=== PATIENT | female | born 1955 | race Caucasian/White ===

== ENCOUNTER 2019-05-03 19:36 | Emergency (ER) | payer MEDICARE, SELFPAY ==
[2019-05-03 19:41] VITALS: BP 151/96; PULSE 90; RESP 20; TEMP 37; O2SAT 100
--- NOTE | 2019-05-03 20:07 | ED.RECABL ---
HPI - Recheck/Abnormal Lab/Rx General Chief Complaint: Recheck/Abnormal Lab/Rx Stated Complaint: high bs Time Seen by Provider: 05/03/19 19:58 Source: patient Mode of arrival: ambulatory Limitations: no limitations History of Present Illness HPI narrative: A 63 y/o female pt presents to the ED, with c/o elevated BS since this morning. Pt states she checked her BS last night before bed and it was in the 200s and notes taking 11 units of her diabetic medication. She states that when she woke up her BS was 579 and she took 2 pills that she is supposed to take after meals without eating anything, and her BS came down to the 300s. Her BS is 384 in the ED. Pt states she's had a GONCALVES x 3 days, productive cough, and increased thirst, but denies fever, chills, CP, chest pressure, ABD pain, dysuria, increased urination, N/V/D, change in food intake, or any sick contacts. She denies having anything to eat today. Pt states that she had a similar episode to this x 3 months ago and her doctor switched her diabetic medication dosages. complaint: abnormal lab (BS of 500) Initial visit (ago): hour(s) Associated symptoms: other (GONCALVES x 3 days, productive cough, and increased thirst) Treatments prior to arrival: other (Diabetic medications) Related Data Allergies Allergy/AdvReac Type Severity Reaction Status Date / Time CODIENE AdvReac Mild ITCHING Uncoded 08/16/10 16:06 Review of Systems Review of Systems: All systems reviewed & are unremarkable except as noted in HPI and below Constitutional: Constitutional: Denies chills, Denies fever(s) and Reports headache(s) (x 3 days) Cardiovascular: Cardiovascular: Denies chest pain and Denies other (chest pressure) Respiratory: Respiratory: Reports cough (productive) Gastrointestinal: Gastrointestinal: Denies abdominal pain, Denies diarrhea, Denies nausea, Denies vomiting and Denies other (change in food intake) Genitourinary: Genitourinary: Denies dysuria Endocrine: Endocrine: Reports polydipsia and Denies polyuria [facility] Past Medical History Medical History (Updated 05/03/19 @ 23:36 by Dagoberto Sim MD) Anxiety Arthritis Back pain Bipolar disorder COPD (chronic obstructive pulmonary disease) Depression Diabetes mellitus History of emphysema Pneumonia Surgical History Surgical History (Updated 05/03/19 @ 21:50 by Janice Serrano, [facility]) History of bilateral knee replacement History of section History of hysterectomy History of tonsillectomy Social History Social History Gender identity (if verbalized by the patient): Female Exam Narrative: Exam Narrative: GENERAL: Well-appearing, well-nourished, and in no acute distress. HEAD: Normocephalic, atraumatic. ENT: Mucous membranes moist. CHEST: Clear to auscultation. No respiratory distress. HEART: Regular rate and rhythm. Normal peripheral pulses. ABDOMEN: Soft, nontender, nondistended. EXTREMITIES: Normal range of motion. No edema. NEURO: Alert and oriented x3. Course Course Emergency Course: Informed of results. May have UTI causing hyperglycemia. Will start on Macrobid at home. Vital Signs Vital signs: Vital Signs Temperature 98.6 F 05/03/19 19:41 Pulse Rate 90 05/03/19 19:41 Respiratory Rate 20 05/03/19 19:41 Blood Pressure 151/96 H 05/03/19 19:41 Pulse Oximetry 100 05/03/19 19:41 Temperature 98.6 F 05/03/19 19:41 Pulse Rate 90 05/03/19 19:41 Respiratory Rate 20 05/03/19 19:41 Blood Pressure 151/96 H 05/03/19 19:41 Pulse Oximetry 100 05/03/19 19:41 MDM - Recheck/Abnormal Lab/Rx Lab Data Result diagrams: 05/03/19 20:20 05/03/19 20:20 Labs: Lab Results 05/03/19 05/03/19 05/03/19 Range/Units 20:20 20:20 20:29 WBC 13.0 H (4.5-10.0) K/mm3 RBC 4.70 (4.2-5.4) M/mm3 Hgb 13.7 (12.0-15.0) g/dL Hct 40.7 (37.0-47.0) % MCV 86.6 (80-100) fl MCH 29.1 (26-34) pg MCHC 33.7 (32-36) g/dl RDW 13.4 (11
[2019-05-03 20:26] LABS: Basophils Percent Auto 0.2 % (0.2-1.2); Hematocrit 40.7 % (37.0-47.0); Hemoglobin 13.7 g/dL (12.0-15.0); Immature Granulocyte Absolute 0.07 K/mm3 (0.00-0.031); Immature Granulocyte Percent A 0.5 % (0-0.5); Lymphocytes Absolute Auto 2.95 K/mm3 (0.9-3.2); Lymphocytes Percent Auto 22.7 % (18.3-44.2); Mean Corpuscular HGB Conc 33.7 g/dl (32-36); Mean Corpuscular Hemoglobin 29.1 pg (26-34); Mean Corpuscular Volume 86.6 fl (80-100); Mean Platelet Volume 11.2 fl (7.4-10.4); Monocytes Absolute Auto 0.4 K/mm3 (0.1-0.6); Monocytes Percent Auto 3.2 % (2.6-8.5); Neutrophils Absolute Auto 9.6 K/mm3 (1.3-6.7); Neutrophils Percent Auto 73.4 % (45.5-73.1); Platelet Count Result 209 k/mm3 (150-375); Red Cell Distribution Width 13.4 % (11.5-14.5)
[2019-05-03 20:33] LABS: Alveolar/Arterial O2 Gradient 33.9 mmHg; Base Excess ABG 0.4 mEq/l (+/-2.0); Carboxyhemoglobin 0.6 % THb (0-2.0); Fractional Inspired Oxygen 21 %; HCO3 ABG 23.6 mEq/l (22.0-26.0); Methemoglobin ABG 0.3 %THb (0-1.5); Oxygen Saturation ABG 95.9 % (95.0-100.0); Oxyhemoglobin 94.5 % THb (90.0-100.0); PO2 ABG 75.1 mmHg (80.0-100.0); PO2 FiO2 Ratio Arterial Blood 3.58 %; Reduced Hemoglobin 4.6 %THb (0-5.0); Total Hemoglobin 14.3 g/dL (12.0-18.0)
[2019-05-03 20:34] LABS: Site Drawn LEFT BRACHIAL
[2019-05-03] MEDS: SODIUM CHLORIDE 0.9% IV 1,000 ML 999 ML IV CONT (20:36)
[2019-05-03 20:38] LABS: Alanine Aminotransferase 34 U/L (4-35); Albumin Level 4.3 g/dL (3.5-5.1); Alkaline Phosphatase 146 U/L (38-126); Aspartate Amino Transferase 37 U/L (14-36); Bilirubin,Total 0.4 mg/dL (0.2-1.3); Blood Urea Nitrogen 14 mg/dL (7-17); Calcium 9.6 mg/dL (8.4-10.2); Carbon Dioxide 26 mmol/L (22-30); Chloride 94 mmol/L (98-107); Estimated CRCL calculation 106 ml/min; Estimated Glomerular Filt Rate > 60; Glucose 384 mg/dL (65-105); Magnesium 1.6 mg/dL (1.6-2.3); Phosphorus 4.2 mg/dL (2.5-4.5); Sodium 133 mmol/L (137-145)
[2019-05-03 20:45] VITALS: BP 140/80; PULSE 90; RESP 18; O2SAT 98
[2019-05-03 21:22] LABS: Glucose Point of Care 326 (65-105)
[2019-05-03 21:58] LABS: Add Urine Microscopic? YES; Appearance Urine Clear (Clear); Bacteria Urine Trace /hpf; Bilirubin Urine Negative (Negative); Blood Urine 2+ (Negative); Color Urine Straw (Yellow); Glucose Urine UA 3+ mg/dL (Negative); Ketones Urine Negative (Negative); Leukocyte Esterase Ur 2+ LEU/UL (Negative); Mucus Urine Rare /lpf; Nitrate Urine Negative (Negative); Protein Urine Negative (Negative); RBC Urine 51-75 /hpf (0-2); Specific Grav Ur 1.016 (1.001-1.035); Squamous Epithelial Cell Urine Few /hpf (Few); Urobilinogen Urine Negative mg/dL (<2.0); WBC Urine 21-30 /hpf
[2019-05-03 23:44] VITALS: BP 145/77; PULSE 95; RESP 18; O2SAT 96
[2019-05-04 09:25] LABS: Glucose Point of Care 386 (65-105)
== END 2019-05-03 23:46 | disposition home or self-care (01) ==
PROVIDERS: Emergency Provider Emergency Medicine
DX: N39.0 Urinary tract infection, site not specified (principal); E11.65 Type 2 diabetes mellitus with hyperglycemia; M19.90 Unspecified osteoarthritis, unspecified site; J43.9 Emphysema, unspecified; Z96.653 Presence of artificial knee joint, bilateral
CPT/HCPCS: 36415; 36600; 80053; 81001; 82375; 82805; 82948; 83050; 83735; 84100; 85025; 87086; 87088; 96360; 99283; J7030

== ENCOUNTER 2020-04-16 11:00 | Outpatient (RCR) | payer MEDICARE, SELFPAY ==
[2020-04-16 11:02] VITALS: BMI 29.7
[2020-04-16 11:08] VITALS: BMI 29.7
== END 2020-06-01 09:57 | disposition home or self-care (01) ==
LOC: ANHDMC 11:00
PROVIDERS: Family Provider Internal Medicine; PCP Family Medicine; Visit Provider Internal Medicine Endocrinology, Diabetes & Metabolism
DX: E11.9 Type 2 diabetes mellitus without complications (principal); Z71.89 Other specified counseling; Z71.3 Dietary counseling and surveillance
CPT/HCPCS: 97802; G0108

== ENCOUNTER → 2020-09-15 15:27 | Outpatient (CLI) | payer MEDICARE, SELFPAY ==
--- NOTE | ~2020-09-15 | MM_ITS ---
EXAMINATION: MM screening jammie BI w sarah HISTORY: Screening mammogram TECHNIQUE: Craniocaudal and mediolateral oblique 3-D tomosynthesis images were obtained and synthetic 2-D images were generated. CAD analysis was submitted and interpreted. COMPARISON: 01/17/2017, 04/20/2012 bilateral digital screening mammogram examinations BREAST PARENCHYMAL COMPOSITION: The breasts are almost entirely fatty. FINDINGS: There is no evidence of suspicious mass, calcification, or architectural distortion to sugg est malignancy in either breast. There has been no suspicious interval change. IMPRESSION: 1. No mammographic evidence of malignancy. 2. Recommend routine screening mammography in one year. BI-RADS Category 1: Negative Reviewed, dictated and finalized at location A.
--- NOTE | ~2020-09-15 | CT_ITS ---
EXAMINATION: CT diagnostic chest wo con DATE: 09/15/2020 15:49 INDICATION: Shortness of breath. Follow-up pulmonary nodule. TECHNIQUE: Computed tomography (CT) of the chest was performed without intravenous contrast. The dose -length product was 141.69 mGy-cm. Automated exposure control and iterative reconstruction technique were employed. COMPARISON: Comparison to multiple prior studies sequentially, with oldest reviewed study dated 6 . FINDINGS: Stable 7 mm right upper lobe nodule, image 49. There is emphysema. No pneumothorax. Heart s ize normal. No thoracic lymphadenopathy. There is atherosclerosis of the aorta and coronary arteries. No significant pleural or pericardial effusion. There are a few scattered calcified granulomas. No f ocal airspace consolidation. No pneumothorax. IMPRESSION: 1. Stable 7 mm right upper lobe nodule, likely benign. Follow-up low dose CT chest in 12 months recom mended. 2: Emphysema. Reviewed, dictated and finalized at location A. IMPRESSION: 1. Stable 7 mm right upper lobe nodule, likely benign. Follow-up low dose CT ch est in 12 months recommended. 2: Emphysema.
== END ==
PROVIDERS: PCP Family Medicine; Visit Provider Family Medicine
DX: Z12.31 Encounter for screening mammogram for malignant neoplasm of breast (principal); R91.1 Solitary pulmonary nodule
CPT/HCPCS: 71250; 77063; 77067

== ENCOUNTER 2021-09-09 09:44 | Emergency (ER) | payer MEDICARE, SELFPAY ==
[2021-09-09 09:53] VITALS: BP 145/70; PULSE 123; RESP 16; TEMP 37.1; O2SAT 93
--- NOTE | 2021-09-09 09:56 | ED.GENADULT ---
HPI - General Adult General Chief complaint: Upper Respiratory Infection Stated complaint: Not Feeling Well Time Seen by Provider: 09/09/21 10:08 Source: patient and family Mode of arrival: ambulatory Limitations: no limitations History of Present Illness HPI narrative: 65-year-old female with history of diabetes, COPD presents with concern for general malaise and fatigue. She reports for 3 days she has been sleeping nonstop . She reports her blood sugars have been slightly elevated after being on steroids while she has for rotator cuff problems. She denies fever, chills, body aches, sweats, nausea, vomiting, diarrhea, abdominal pain, back pain, nasal congestion, rhinorrhea, dysuria, frequency, urgency. She reports left eye redness, reports it was crusted shut this morning when she woke up. She denies irritation, eye pain, vision changes. She reports her blood sugar was around 240 before she arrived today. Patient reports her son-in-law has COVID, she was around him recently. She denies any URI symptoms. MD complaint: General malaise Related Data Home Medications Medication Instructions Recorded Confirmed alprazolam 2 mg tablet (Xanax) 2 mg PO DAILY 12/04/19 09/09/21 aripiprazole 30 mg tablet (Abilify) 30 mg PO DAILY 12/04/19 09/09/21 atorvastatin 40 mg tablet (Lipitor) 40 mg PO DAILY 12/04/19 09/09/21 desvenlafaxine succinate 100 mg 100 mg PO DAILY 12/04/19 09/09/21 tablet,extended release 24 hr (Pristiq) metoprolol succinate 50 mg 50 mg PO DAILY 12/04/19 09/09/21 tablet,extended release 24 hr dextroamphetamine-amphetamine 20 20 mg PO DAILY 09/09/21 09/09/21 mg tablet oxycodone-acetaminophen 10 mg-325 1 tablet PO DAILY 09/09/21 09/09/21 mg tablet Allergies Allergy/AdvReac Type Severity Reaction Status Date / Time codeine Allergy Intermediate Itching Verified 09/09/21 09:51 Review of Systems Review of Systems: CONSTITUTIONAL: Reports malaise, chills, sweats, or fever. EYES: Denies visual changes. Reports left eye redness and purulent discharge. ENT: Denies rhinorrhea, congestion, sinus pain, otalgia or sore throat. CARDIOVASCULAR: Denies chest pain, palpitations, or edema. RESPIRATORY: Denies cough or dyspnea. GASTROINTESTINAL: Denies abdominal pain, nausea, vomiting, diarrhea, bloody, or mucous stools. GENITOURINARY: Denies dysuria or hematuria. SKIN: Denies rash or itching. MUSCULOSKELETAL: Denies back pain, joint pain, or myalgia. NEUROLOGIC: Denies numbness, weakness, or headache. PSYCHIATRIC: Denies anxiety or depression. All systems reviewed & are unremarkable except as noted in HPI and below PMFSH Past Medical History Medical History Anxiety Arthritis Back pain Bipolar disorder COPD (chronic obstructive pulmonary disease) Depression Diabetes mellitus History of emphysema Pneumonia Psychiatric care SOB (shortness of breath) Surgical History Surgical History History of bilateral knee replacement History of section History of hysterectomy History of tonsillectomy Family History Family History Other Renal cell cancer Social History Social History (Updated 05/12/21 @ 07:57 by Audrey Mclaughlin MA) Smoking status: Never smoker Alcohol intake: never Substance use: never Gender identity (if verbalized by the patient): Female Spiritual care concerns: No Comments At time of signature, agree with nursing past medical, surgical, social and family history. There is no relevant family history pertinent to the presenting complaint Exam Narrative: GENERAL: Nontoxic appearing and in no acute distress. HEAD: Normocephalic, atraumatic. EYES: PERRLA and EOMI. No nystagmus. Left sclera and conjunctive injected with drainage noted ENT: Nares clear, turbinates pink, no rhinorrhea or epistaxis. Mucous membranes moist.
[2021-09-09 10:04] VITALS: BP 145/70; PULSE 123; RESP 16; TEMP 37.1; O2SAT 93
[2021-09-09 10:05] LABS: Glucose Point of Care 270 mg/dl (65-105)
== END 2021-09-09 10:30 | disposition home or self-care (01) ==
PROVIDERS: Emergency Provider Nurse Practitioner; PCP Family Medicine
DX: N39.0 Urinary tract infection, site not specified (principal); H10.32 Unspecified acute conjunctivitis, left eye; Z20.822 Contact with and (suspected) exposure to COVID-19; J44.9 Chronic obstructive pulmonary disease, unspecified; E11.9 Type 2 diabetes mellitus without complications; Z96.653 Presence of artificial knee joint, bilateral; M19.90 Unspecified osteoarthritis, unspecified site; F41.9 Anxiety disorder, unspecified; F32.A Depression, unspecified
CPT/HCPCS: 81003; 82948; 87077; 87086; 87186; 87426; 99213; C9803; G0463

== ENCOUNTER → 2021-10-06 10:24 | Outpatient (CLI) | payer MEDICARE, SELFPAY ==
--- NOTE | ~2021-10-06 | CT_ITS ---
EXAMINATION: CT diagnostic chest wo con DATE: 10/06/2021 10:36 INDICATION: Solitary pulmonary nodule TECHNIQUE: Computed tomography (CT) of the chest was performed without intravenous contrast. The dose -length product was 170.60 mGy-cm. Automated exposure control and iterative reconstruction technique were employed. COMPARISON: CT dated 09/15/2020 and 04/23/2018 FINDINGS: Heart size is normal. No thoracic lymphadenopathy. There is atherosclerosis of the aorta an d coronary arteries. No significant pleural or pericardial effusion. There is a 7 mm right upper lobe nodule, image 48, unchanged. There is emphysema. There are blebs in the upper lobes. No pneumothorax . No endobronchial lesions. No significant pleural or pericardial effusion. There is calcified granul daryn left mid thorax. IMPRESSION: 1. Stable 7 mm right upper lobe nodule, likely benign. Follow-up low dose CT chest in 12 months recom mended. 2: Emphysema. Reviewed, dictated and finalized at location B. IMPRESSION: 1. Stable 7 mm right upper lobe nodule, likely benign. Follow-up low dose CT ch est in 12 months recommended. 2: Emphysema.
== END ==
PROVIDERS: PCP Family Medicine; Visit Provider Physician Assistant
DX: R91.1 Solitary pulmonary nodule (principal); J43.9 Emphysema, unspecified
CPT/HCPCS: 71250

== ENCOUNTER → 2021-10-06 10:26 | Outpatient (CLI) | payer MEDICARE, SELFPAY ==
--- NOTE | ~2021-10-06 | US_ITS ---
EXAMINATION: US thyroid DATE: 10/06/2021 10:57 INDICATION: Dysphonia. TECHNIQUE: Multiple ultrasound images of the thyroid were obtained. COMPARISON: None. FINDINGS: The right thyroid lobe measures 4.4 x 1.7 x 1.4 cm. The left thyroid lobe measures 5.0 x 1.4 x 1.3 c m. In the left thyroid lobe, there is a 9 mm solid, hypoechoic, wider than tall nodule with peripher al calcifications and smooth margin (TI-RADS TR4). In the left thyroid lobe, there is a 5 mm solid, h ypoechoic, wider than tall nodule with smooth margin and peripheral calcifications (TR4). In the left thyroid lobe, there are two 3 mm nodules. In the right thyroid lobe, there is a 7 mm solid, hypoecho ic, wider than tall nodule with smooth margin without echogenic foci (TR4). In the right thyroid lobe , there is a 4 mm nodule. IMPRESSION: 1. Small thyroid nodules, likely not clinically significant. No follow-up is needed. Reviewed, dictated and finalized at location A. IMPRESSION: 1. Small thyroid nodules, likely not clinically significant. No follow-up is ne eded.
== END ==
PROVIDERS: PCP Family Medicine; Visit Provider Nurse Practitioner Family
DX: R49.0 Dysphonia (principal); R91.1 Solitary pulmonary nodule; E04.2 Nontoxic multinodular goiter
CPT/HCPCS: 76536

== ENCOUNTER 2021-11-16 13:00 | Outpatient (RCR) | payer MEDICARE, SELFPAY ==
[2021-10-13 09:40] VITALS: BMI 29.2
[2021-10-13 10:09] VITALS: BMI 29.2
== END 2021-12-28 08:53 | disposition home or self-care (01) ==
LOC: ANHDMC 13:00
PROVIDERS: PCP Family Medicine; Visit Provider Internal Medicine Endocrinology, Diabetes & Metabolism
DX: E11.9 Type 2 diabetes mellitus without complications (principal); Z71.3 Dietary counseling and surveillance; Z71.89 Other specified counseling
CPT/HCPCS: 97803; 99199; G0108

== ENCOUNTER 2022-01-18 07:19 | Outpatient (RCR) | payer MEDICARE, SELFPAY | END 2022-04-04 15:12 | disposition home or self-care (01) | LOC: ANHDMC 07:19 | PROVIDERS: PCP Family Medicine; Visit Provider Internal Medicine Endocrinology, Diabetes & Metabolism | DX: E11.9 Type 2 diabetes mellitus without complications (principal) | CPT/HCPCS: 99199 ==

== ENCOUNTER 2022-03-24 08:13 | Outpatient (CLI) | payer MEDICARE, SELFPAY ==
--- NOTE | ~2022-03-24 | US_ITS ---
EXAMINATION: US abdomen complete DATE: 03/24/2022 09:30 INDICATION: Hepatomegaly TECHNIQUE: Multiple grayscale and Doppler ultrasound images of the abdomen were obtained. COMPARISON: 01/20/2017 FINDINGS: The head, body, and tail of the pancreas are normal. The liver is normal with normal echoge nicity and echotexture. The liver measures 16.5 cm in craniocaudal length. No surface nodularity. Nor mal hepatopetal flow in the main portal vein. The gallbladder is normal with no abnormal wall thicken ing, pericholecystic fluid or stones. The normal common bile duct measures 3 mm. There was no sonogra phic Cervantes sign. The visualized portions of the aorta and inferior vena cava are normal. The spleen measures 13.2 cm. There is a 1.7 cm hyperechoic lesion in the spleen. The right kidney ro sures 11.8 x 5.2 x 4.9 cm. The left kidney measures 11.3 x 5.0 x 5.8 cm. The kidneys demonstrate norm al parenchymal echogenicity. There is no hydronephrosis. IMPRESSION: 1. Unremarkable liver. 2. 1.7 cm hyperechoic lesion of the spleen, likely benign in the absence of known malignancy. Reviewed, dictated and finalized at location L. GER TRANSITION IMPRESSION: 1. Unremarkable liver. 2. 1.7 cm hyperechoic lesion of the spleen, likely benign in the absence of kno wn malignancy.
== END 2022-03-24 08:14 | disposition home or self-care (01) ==
LOC: ANHIMG 08:14
PROVIDERS: PCP Family Medicine; Visit Provider Internal Medicine Gastroenterology
DX: R16.0 Hepatomegaly, not elsewhere classified (principal)
CPT/HCPCS: 76700

== ENCOUNTER 2022-04-21 08:29 | Outpatient (CLI) | payer MEDICARE, SELFPAY ==
[2022-04-21 12:59] LABS: Alanine Aminotransferase 30 U/L (6-35); Alkaline Phosphatase 100 U/L (38-126); Anion Gap 7 mmol/L (8-16); Aspartate Amino Transferase 29 U/L (14-36); Bilirubin,Total 0.6 mg/dL (0.2-1.3); Blood Urea Nitrogen 9 mg/dL (7-17); Calcium 9.4 mg/dL (8.4-10.2); Carbon Dioxide 27 mmol/L (22-30); Chloride 101 mmol/L (98-107); Estimated Glomerular Filt Rate > 60; Glucose 98 mg/dL (65-110); Sodium 135 mmol/L (137-145)
[2022-04-21 13:10] LABS: Hemoglobin A1C 6.8 % (<5.7)
[2022-04-24 16:02] LABS: Triiodothyronine T3 Free 3.5 pg/mL (2.3-4.2)
== END 2022-04-21 08:30 | disposition home or self-care (01) ==
LOC: ANHWCLAB 08:33
PROVIDERS: PCP Family Medicine; Visit Provider Internal Medicine Endocrinology, Diabetes & Metabolism
DX: R79.89 Other specified abnormal findings of blood chemistry (principal); E04.9 Nontoxic goiter, unspecified; R16.0 Hepatomegaly, not elsewhere classified
CPT/HCPCS: 36415; 80053; 83036; 84439; 84443; 84481

== ENCOUNTER 2022-06-30 00:07 | Day surgery (SDC) | payer MEDICARE, SELFPAY ==
[2022-06-16 14:10] VITALS: BMI 29.1
--- NOTE | 2022-06-29 15:40 | PM.HPGS ---
History of Present Illness History of Present Illness Consent: Risks, benefits, and alternatives have been discussed and questions answered. Patient agrees to proceed with procedure. Chief complaint: Dysphagia; Rectal bleed Narrative: Yaneth Duarte is a 66 year old female Who has been having issues with incontinence usually passing small amelia of stool but her main concern now is that she has seen blood in her stool for the past 3 months.? As a matter fact she will pass blood even when she is not having a bowel movement.? Consequently she needs to wear pads constantly.? The blood comes out without pain is usually bright red but can be dark.? She denies rectal pain; she denies abdominal pain.? She continues to have issues with swallowing.? Chicken and steak in particular get hung up and she cannot regurgitate them Review of Systems Review of Systems: All systems reviewed & are unremarkable except as noted in HPI and below PMFSH Past Medical History Medical History Anxiety Arthritis Back pain Bipolar disorder COPD (chronic obstructive pulmonary disease) Depression History of emphysema Hyperlipidemia Nasal septal perforation Pneumonia Psychiatric care SOB (shortness of breath) Tongue, fissured Type 2 diabetes mellitus Surgical History Surgical History History of bilateral knee replacement History of section History of hysterectomy History of tonsillectomy Family History Family History Other Renal cell cancer Social History Social History Smoking packs per day: 1 Smoking cigarettes per day: 20.0 Years smoked: 50 Smoking pack-years: 50.00 Smoking status: Former smoker Tobacco type: cigarettes Alcohol intake: never Substance use: never Substance use type: does not use Living arrangements: with family Gender identity (if verbalized by the patient): Female Spiritual care concerns: No Meds Home Medications and Allergies Home Medications Medication Instructions Recorded Confirmed Type aripiprazole 30 mg tablet (Abilify) 30 mg PO DAILY 12/04/19 06/30/22 History atorvastatin 40 mg tablet (Lipitor) 40 mg PO DAILY 12/04/19 06/30/22 History desvenlafaxine succinate 100 mg 100 mg PO DAILY 12/04/19 06/30/22 History tablet,extended release 24 hr (Pristiq) metoprolol succinate 50 mg 50 mg PO DAILY 12/04/19 06/30/22 History tablet,extended release 24 hr dextroamphetamine-amphetamine 20 20 mg PO DAILY PRN other 09/09/21 06/30/22 History mg tablet oxycodone-acetaminophen 10 mg-325 1 tablet PO DAILY PRN Pain 09/09/21 06/30/22 History mg tablet flash glucose sensor (FreeStyle #2 ea 12/21/21 06/30/22 Rx Hoang 2 Sensor kit) insulin glargine 100 unit/mL (3 50 unit (0.5 mL) subcut DAILY 90 12/21/21 06/30/22 Rx mL) subcutaneous pen (Transceptaaglar days #45 mL KwikPen U-100 Insulin) semaglutide 2 mg/dose (8 mg/3 mL) 2 mg (0.75 mL) subcut WEEKLY 90 04/21/22 06/30/22 Rx subcutaneous pen injector (Ozempic) days #9 mL dapagliflozin 5 mg tablet (Farxiga) See Rx Instructions .Route 06/21/22 06/30/22 Rx .COMPLEX #90 tabs Allergies Allergy/AdvReac Type Severity Reaction Status Date / Time codeine Allergy Intermediate Itching Verified 06/30/22 08:54 Exam Const: General: alert Orientation/consciousness: patient oriented x3 Resp: Auscultation: clear to auscultation bilaterally Cardio: Rhythm: regular rhythm GI: GI Palp: Yes Soft to palpation and No Tenderness to palpation present (GI) Neuro: General: patient oriented x3 Assessment and Plan Assessment and plan (1) Dysphagia: Code(s): R13.10 - Dysphagia, unspecified Status: Acute Assessment and Plan: EGD with possible biopsy or dilatation or cautery. (2) Fecal incontin
[2022-06-30 08:56] VITALS: BP 124/79; PULSE 88; RESP 20; TEMP 36.4; O2SAT 95; BMI 28.3
[2022-06-30] MEDS: LACTATED RINGERS 1,000 ML 150 ML IV CONT (08:59)
[2022-06-30 09:15] LABS: Glucose Point of Care 130 mg/dl (65-105)
--- NOTE | 2022-06-30 09:56 | WPDANESEPPF ---
Anes - Initial Pre Proc Eval Procedure: Operation Date: 06/30/22 10:00 Proposed Procedures p Esophagogastroduodenoscopy & Colonoscopy - Osmany Foster MD Date/Time: 06/30/22 09:56 Surgeon: Osmany Foster MD Pre Op Diagnosis: Dysphagia; Rectal bleed Patient Data Age: 66 Gender: F Height: 1.7 m Weight: 82.1 kg Last Vital Signs Temp 97.5 F L 06/30/22 08:56 Pulse 88 06/30/22 08:56 Resp 20 06/30/22 08:56 BP 124/79 06/30/22 08:56 Pulse Ox 95 06/30/22 08:56 O2 Del Method Room Air 06/30/22 08:56 Allergies Allergy/AdvReac Type Severity Reaction Status Date / Time codeine Allergy Intermediate Itching Verified 06/30/22 08:54 Home Medications Medication Instructions Recorded Confirmed Type aripiprazole 30 mg tablet (Abilify) 30 mg PO DAILY 12/04/19 06/30/22 History atorvastatin 40 mg tablet (Lipitor) 40 mg PO DAILY 12/04/19 06/30/22 History desvenlafaxine succinate 100 mg 100 mg PO DAILY 12/04/19 06/30/22 History tablet,extended release 24 hr (Pristiq) metoprolol succinate 50 mg 50 mg PO DAILY 12/04/19 06/30/22 History tablet,extended release 24 hr dextroamphetamine-amphetamine 20 20 mg PO DAILY PRN other 09/09/21 06/30/22 History mg tablet oxycodone-acetaminophen 10 mg-325 1 tablet PO DAILY PRN Pain 09/09/21 06/30/22 History mg tablet flash glucose sensor (FreeStyle #2 ea 12/21/21 06/30/22 Rx Hoang 2 Sensor kit) insulin glargine 100 unit/mL (3 50 unit (0.5 mL) subcut DAILY 12/21/21 06/30/22 Rx mL) subcutaneous pen (Basaglar days #45 mL KwikPen U-100 Insulin) semaglutide 2 mg/dose (8 mg/3 mL) 2 mg (0.75 mL) subcut WEEKLY 04/21/22 06/30/22 Rx subcutaneous pen injector (Ozempic) days #9 mL dapagliflozin 5 mg tablet (Farxiga) See Rx Instructions .Route 06/21/22 06/30/22 Rx .COMPLEX #90 tabs Laboratory Tests 06/30/22 09:12 POC Capillary Glucose 130 H mg/dl (65-105) Patient hx anesthesia problems: none Family hx anesthesia problems: none Results Review: All pre-operative results and documents have been reviewed as part of the pre-operative evaluation. COUNTS INCLUDE 234 BEDS AT THE [facility] Past Medical History Medical History Anxiety Arthritis Back pain Bipolar disorder COPD (chronic obstructive pulmonary disease) Depression History of emphysema Hyperlipidemia Nasal septal perforation Pneumonia Psychiatric care SOB (shortness of breath) Tongue, fissured Type 2 diabetes mellitus Surgical History Surgical History History of bilateral knee replacement History of section History of hysterectomy History of tonsillectomy Family History Family History Other Renal cell cancer Social History Social History Smoking packs per day: 1 Smoking cigarettes per day: 20.0 Years smoked: 50 Smoking pack-years: 50.00 Smoking status: Former smoker Tobacco type: cigarettes Alcohol intake: never Substance use: never Substance use type: does not use Living arrangements: with family Gender identity (if verbalized by the patient): Female Spiritual care concerns: No Anes - Eval Final PreProcedure Day of Procedure 06/30/22 09:56 Patient weight: obese Heart: regular rate and rhythm Lungs: clear to auscultation Airway: Mallampati scale class II Neurological: alert and oriented Last oral intake: >/= 8 hours ASA classification: III Emergent: no Anesthetic plan: proceed Anesthesia type and monitoring: general GIVS and standard monitoring Results Review: All pre-operative results and documents have been reviewed as part of the pre-operative evaluation. Informed Consent: The patient's anesthetic plan and its attendant risks and benefits were discussed with the patient/family/POA. Questions were solicited and ans
--- NOTE | 2022-06-30 10:35 | SUR.OPER ---
EGD START: 1008; END: 1014. COLONOSCOPY START: 1020; END: 1035.
[2022-06-30 10:42] VITALS: BP 149/83; PULSE 92; RESP 20; O2SAT 100
[2022-06-30 10:52] VITALS: BP 158/81; PULSE 83; RESP 20; O2SAT 100
[2022-06-30 10:55] LABS: Glucose Point of Care 113 mg/dl (65-105)
[2022-06-30 11:02] VITALS: BP 157/73; PULSE 80; RESP 21; O2SAT 100
== END 2022-06-30 11:15 | disposition home or self-care (01) ==
PROVIDERS: PCP Family Medicine; Visit Provider Internal Medicine Gastroenterology
PROC: 0DJ08ZZ Inspection of Upper Intestinal Tract, Via Natural or Artificial Opening Endoscopic (ICD-10-PCS; CPT 43235; principal; 2022-06-30 10:00)
DX: K51.20 Ulcerative (chronic) proctitis without complications (principal); D12.5 Benign neoplasm of sigmoid colon; K57.30 Diverticulosis of large intestine without perforation or abscess without bleeding; K64.8 Other hemorrhoids; K22.2 Esophageal obstruction; E11.9 Type 2 diabetes mellitus without complications; J44.9 Chronic obstructive pulmonary disease, unspecified; F41.9 Anxiety disorder, unspecified; F31.9 Bipolar disorder, unspecified; E78.5 Hyperlipidemia, unspecified; Z87.891 Personal history of nicotine dependence; E66.9 Obesity, unspecified; Z68.28 Body mass index [BMI] 28.0-28.9, adult; Z79.84 Long term (current) use of oral hypoglycemic drugs; Z79.4 Long term (current) use of insulin; Z79.899 Other long term (current) drug therapy
CPT/HCPCS: 45380; 45385; 43249; 82948; 88305; C1726; J2704; J7120

== ENCOUNTER 2023-01-02 08:56 | Outpatient (CLI) | payer MEDICARE, SELFPAY ==
--- NOTE | 2023-01-29 18:34 | WPDSLEEPSTUD ---
Sleep Study Date of Study: 01/02/23 Ordering Provider: Kimani Huff APRN Interpreting Physician: Niurka Xavier MD Sleep Study Type: Split Polysomnogram Height: 1.7 m Weight: 83.007 kg Body Mass Index: 28.6 Neck Circumference (inches): 13.5 [place]: 7 Reason for Sleep Study Mild sleep apnea, daytime hypersomnia * HST 06/23/21 ? Mild sleep apnea, AHI 9. * PAP Titration 08/17/21 at [place] ? titrated to CPAP [id number] with a nasal mask. Saturation was 88% on final pressure. Sleep History Yaneth Duarte is a 67 year old female with history of hypertension, dyslipidemia, Sjogren?s, ADHD, bipolar disorder, sleep apnea and COPD who underwent a sleep study for evaluation of daytime hypersomnia. She occasionally awakens from sleep short of breath. She never awakens at night with heartburn, belching or cough. She occasionally snores and never snores loudly enough that others complain. She occasionally has trouble sleeping when she has a cold. She occasionally suddenly wakes up gasping for breath during the night. She occasionally has breathing problems at night. She never sweats excessively at night. She never notices her heart pounding or beating irregularly during the night. She occasionally falls asleep during the day. She never falls asleep while driving. She never experiences loss of muscle tone with strong emotion. She never feels paralyzed on waking or falling asleep. She never experiences vivid dreams upon waking or falling asleep. She does not feel afraid of going to sleep. She never has nightmares. She never recalls her dreams. She never has thoughts racing through her mind. She occasionally feels sad or depressed. She occasionally feels anxiety or worry about things. She never notices parts of her body jerk. She never kicks during the night. She frequently feels crawling or aching feelings in her legs. She frequently feels leg pain at night. She never grinds her teeth during sleep and never has morning jaw pain. She never feels bothered by pain during the day and is frequently awakened by pain during the night. She never wakes up feeling stiff in the morning. She rarely wakes up feeling sore or achy in the morning. She rarely wakes with pain in her neck, spine, or joints. Normal bedtime is around 9pm on the weekdays and same on the weekends, taking 10 minutes to fall asleep. She typically gets about 9 hours of sleep per night. Her wake up time is around 6am on the weekdays and 8am on the weekends. She does not typically wake up during the night. She watches TV before falling asleep. She does not typically take naps in the afternoon or evening. Habits: Former tobacco smoker. No caffeine use. No alcohol or recreational substances. [facility] Past Medical History Medical History (Updated 01/29/23 @ 20:07 by Niurka Xavier MD) Anxiety Arthritis Back pain Bipolar disorder COPD (chronic obstructive pulmonary disease) Depression History of emphysema Hyperlipidemia Nasal septal perforation Pneumonia Psychiatric care SOB (shortness of breath) Tongue, fissured Type 2 diabetes mellitus Surgical History Surgical History History of bilateral knee replacement History of section History of hysterectomy History of tonsillectomy Family History Family History Other Renal cell cancer Social History Social History Smoking packs per day: 1 Smoking cigarettes per day: 20.0 Years smoked: 34 Smoking pack-years: 34.00 Smoking status: Former smoker Tobacco type: e-cigarettes/vaping Smoking end date: 02/20/05 Alcohol intake: never Substance use: never Substance use type: does not use Living arrangements: with family Gender identity (if verbalized by the patient): Female Spiritual care concerns: No Medications Home Medications M
[2023-01-29 20:14] VITALS: BMI 28.6
== END 2023-01-03 05:03 | disposition home or self-care (01) ==
LOC: ANHCSM 08:57
PROVIDERS: PCP Family Medicine; Visit Provider Nurse Practitioner Family
DX: G47.33 Obstructive sleep apnea (adult) (pediatric) (principal)
CPT/HCPCS: 95811

== ENCOUNTER 2023-04-13 11:47 | Outpatient (CLI) | payer MEDICARE, SELFPAY ==
[2023-04-13 12:17] LABS: Hematocrit 50.4 % (37.0-47.0); Hemoglobin 16.3 g/dL (12.0-15.0); Mean Corpuscular HGB Conc 32.3 g/dl (32-36); Mean Corpuscular Hemoglobin 28.4 pg (26-34); Mean Platelet Volume 10.6 fl (7.4-10.4); Platelet Count Result 256 k/mm3 (150-375); Red Blood Count 5.73 M/mm3 (4.2-5.4); Red Cell Distribution Width 14.8 % (11.5-14.5); White Blood Count 14.1 K/mm3 (4.5-10.0)
[2023-04-13 12:29] LABS: Alanine Aminotransferase 31 U/L (6-35); Albumin Level 4.5 g/dL (3.5-5.1); Alkaline Phosphatase 88 U/L (38-126); Anion Gap 8 mmol/L (8-16); Aspartate Amino Transferase 40 U/L (14-36); Blood Urea Nitrogen 21 mg/dL (7-17); CRP < 0.5 mg/dL (<1.0); Calcium 9.7 mg/dL (8.4-10.2); Carbon Dioxide 28 mmol/L (22-30); Chloride 102 mmol/L (98-107); Estimated Glomerular Filt Rate > 60; Glucose 93 mg/dL (65-110); Sodium 138 mmol/L (137-145)
[2023-04-13 12:32] LABS: Prothrombin Time 13.3 Seconds (11.1-14.7)
[2023-04-13 13:05] LABS: Erythrocyte Sedimentation Rate 6 mm/hr (0-20)
[2023-04-13 13:25] LABS: Hepatitis B Surface Antigen Negative (Negative)
[2023-04-13 13:31] LABS: HAV RESULT Negative (Negative); Hepatitis B Core IgM Result Negative (Negative)
[2023-04-13 13:43] LABS: Hepatitis C Virus Antibody Negative (Negative)
[2023-04-15 14:58] LABS: NIL 0.04 IU/mL; Quantiferon TB Plus, 1T NEGATIVE (NEGATIVE); TB1-NIL 0.01 IU/mL; TB2-NIL 0.01 IU/mL
[2023-04-16 18:12] LABS: Hepatitis A Antibody Total Nonreactive (Nonreactive); Hepatitis B Core Ab Total Nonreactive (Nonreactive)
== END 2023-04-13 11:48 | disposition home or self-care (01) ==
LOC: ANHLAB 11:50
PROVIDERS: PCP Family Medicine; Visit Provider Nurse Practitioner
DX: F31.9 Bipolar disorder, unspecified (principal); Z79.899 Other long term (current) drug therapy; Z11.59 Encounter for screening for other viral diseases; R19.5 Other fecal abnormalities; R16.0 Hepatomegaly, not elsewhere classified; R15.2 Fecal urgency; K92.1 Melena; K76.0 Fatty (change of) liver, not elsewhere classified; K51.20 Ulcerative (chronic) proctitis without complications
CPT/HCPCS: 36415; 80053; 80074; 85027; 85610; 85652; 86140; 86480; 86704; 86708

== ENCOUNTER 2023-05-08 07:40 | Outpatient (CLI) | payer MEDICARE, SELFPAY ==
--- NOTE | ~2023-05-08 | US_ITS ---
Limited Abdominal Sonogram: Real-time sonographic imaging of the right upper quadrant was performed. Clinical History: Hepatic steatosis Findings: The liver appears mildly echogenic, with no evidence of mass lesion or bile duct dilatatio n. Main portal vein demonstrates normal direction of flow. The gallbladder is well distended, and paz ears normal with no evidence of gallstone or wall thickening. The common bile duct measures 5 mm. Th e visualized pancreas, aorta, and IVC are unremarkable. Impression: Probable mild fatty infiltration of the liver. Reviewed, dictated and finalized at location M. Impression: Probable mild fatty infiltration of the liver.
== END 2023-05-08 07:41 | disposition home or self-care (01) ==
PROVIDERS: PCP Family Medicine; Visit Provider Nurse Practitioner
DX: K76.0 Fatty (change of) liver, not elsewhere classified (principal); I86.8 Varicose veins of other specified sites
CPT/HCPCS: 76705

== ENCOUNTER 2023-05-10 09:38 | Outpatient (CLI) | payer MEDICARE, SELFPAY ==
[2023-05-25 13:58] VITALS: BMI 28.1
--- NOTE | 2023-05-25 13:58 | WPDSLEEPSTUD ---
Sleep Study Date of Study: 05/10/23 Ordering Provider: KATHRINE Pierce Interpreting Physician: Janet Yanez DO Sleep Study Type: CPAP Titration Height: 1.7 m Weight: 81.647 kg Body Mass Index: 28.1 Neck Circumference (inches): 13.5 Reason for Sleep Study Mild sleep apnea, daytime hypersomnia * HST 06/23/21 ? Mild sleep apnea, AHI 9. * PAP Titration 08/17/21 at [place] ? titrated to CPAP [id number] with a nasal mask. Saturation was 88% on final pressure. * Split 01/02/2023 at [facility] of 11.8 treated with CPAP 12 cm H2O Sleep History Yaneth Duarte is a 67 year old female with history of hypertension, dyslipidemia, Sjogren?s, ADHD, bipolar disorder, sleep apnea and COPD who underwent a sleep study for evaluation of daytime hypersomnia.? She occasionally awakens from sleep short of breath. She never awakens at night with heartburn, belching or cough.? She occasionally snores and never snores loudly enough that others complain. She occasionally has trouble sleeping when she has a cold. She occasionally suddenly wakes up gasping for breath during the night. She occasionally has breathing problems at night. She never sweats excessively at night. She never notices her heart pounding or beating irregularly during the night. She occasionally falls asleep during the day. She never falls asleep while driving. She never experiences loss of muscle tone with strong emotion. She never feels paralyzed on waking or falling asleep. She never experiences vivid dreams upon waking or falling asleep. She does not feel afraid of going to sleep. She never has nightmares. She never recalls her dreams. She never has thoughts racing through her mind. She occasionally feels sad or depressed. She occasionally feels anxiety or worry about things. She never notices parts of her body jerk. She never kicks during the night. She?frequently feels crawling or aching feelings in her legs. She frequently feels leg pain at night. She never grinds her teeth during sleep and never has morning jaw pain. She never feels bothered by pain during the day and is frequently awakened by pain during the night. She never wakes up feeling stiff in the morning.? She rarely wakes up feeling sore or achy in the morning. She rarely wakes with pain in her neck, spine, or joints.? Normal bedtime is around 9pm on the weekdays and same on the weekends, taking 10 minutes to fall asleep. She typically gets about 9 hours of sleep per night. Her wake up time is around 6am on the weekdays and 8am on the weekends. She does not typically wake up during the night.? She watches TV before falling asleep.? She does not typically take naps in the afternoon or evening. Habits:? Former tobacco smoker. No caffeine use. No alcohol or recreational substances. [facility] Past Medical History Medical History Anxiety Arthritis Back pain Bipolar disorder Caput medusae COPD (chronic obstructive pulmonary disease) Depression Fecal urgency Hepatic steatosis High risk medication use History of emphysema Hyperlipidemia Mucus in stool Nasal septal perforation Obesity Pneumonia Psychiatric care SOB (shortness of breath) Tongue, fissured Type 2 diabetes mellitus Surgical History Surgical History History of bilateral knee replacement History of section History of hysterectomy History of tonsillectomy Family History Family History Other Renal cell cancer Social History Social History Smoking packs per day: 1 Smoking cigarettes per day: 20.0 Years smoked: 34 Smoking pack-years: 34.00 Smoking status: Former smoker Tobacco type: e-cigarettes/vaping Smoking end date: 02/20/05 Alcohol intake: never Substance use: never Substance use type: does not use [place]
== END 2023-05-11 07:12 | disposition home or self-care (01) ==
LOC: ANHCSM 09:41
PROVIDERS: PCP Family Medicine; Visit Provider Physician Assistant
DX: G47.33 Obstructive sleep apnea (adult) (pediatric) (principal); I10 Essential (primary) hypertension; F39 Unspecified mood [affective] disorder
CPT/HCPCS: 95811

== ENCOUNTER 2023-05-16 15:22 | Outpatient (CLI) | payer MEDICARE, SELFPAY ==
[2023-05-25 01:38] LABS: Calprotectin, Stool 288 mcg/g
== END 2023-05-16 15:23 | disposition home or self-care (01) ==
LOC: ANHLAB 15:23
PROVIDERS: PCP Family Medicine; Visit Provider Nurse Practitioner
DX: R19.5 Other fecal abnormalities (principal); K51.20 Ulcerative (chronic) proctitis without complications; R16.0 Hepatomegaly, not elsewhere classified; K76.0 Fatty (change of) liver, not elsewhere classified; R15.2 Fecal urgency; Z79.899 Other long term (current) drug therapy
CPT/HCPCS: 83993

== ENCOUNTER 2023-06-02 08:47 | Inpatient (IN) | payer MEDICARE, SELFPAY ==
[2023-06-02] VITALS (35 sets, daily range): BP systolic 101–148; BP diastolic 50–91; PULSE 95–162; RESP 15–46; TEMP 36.2–40.8; O2SAT 88–100; BMI 28.3
--- NOTE | ~2023-06-02 | XR_ITS ---
EXAMINATION: XR chest 2V DATE: 06/02/2023 09:50 INDICATION: Altered mental status. Atrial fibrillation. TECHNIQUE: Frontal and lateral views of the chest were obtained. COMPARISON: None. FINDINGS: There are lucencies in right upper lobe, consistent with emphysema. There is mild atelectas is in left lower lung zone. No pleural effusion or pneumothorax. The heart size is normal. IMPRESSION: 1. Emphysema. 2. Mild atelectasis in left lower lung zone. Reviewed, dictated and finalized at location A.
--- NOTE | ~2023-06-02 | CT_ITS ---
EXAMINATION: CT lumbar spine wo con DATE: 06/02/2023 10:00 INDICATION: Low back pain. Fall. TECHNIQUE: Computed tomography (CT) of the lumbar spine was performed without intravenous contrast. A utomated exposure control and iterative reconstruction technique were employed. The dose-length produ ct was 978.91 mGy-cm. COMPARISON: None FINDINGS: There is calcified atherosclerosis of the aorta and many of the other arteries. Bone alignm ent is normal. There are Schmorl's nodes at multiple levels. There is moderately decreased disc heigh t at L4-L5. The following disc levels are specifically discussed: L1-L2: The disc is bulging. There is severe bilateral facet joint osteoarthritis. There is mild bilat eral neural foraminal stenosis. There is mild central canal stenosis. L2-L3: The disc is bulging. There is severe bilateral facet joint osteoarthritis. There is mild bilat eral neural foraminal stenosis. There is mild central canal stenosis. L3-L4: The disc is bulging. There is severe bilateral facet joint osteoarthritis. There is mild right and moderate left neural foraminal stenosis. There is mild central canal stenosis. L4-L5: The disc is bulging. There is severe bilateral facet joint osteoarthritis. There is mild right and moderate left neural foraminal stenosis. There is mild central canal stenosis. L5-S1: The disc is bulging. There is severe bilateral facet joint osteoarthritis. There is mild left neural foraminal stenosis. There is mild central canal stenosis. IMPRESSION: 1. No fracture. 2. Moderate lumbar spondylosis. Reviewed, dictated and finalized at location A.
--- NOTE | ~2023-06-02 | XR_ITS ---
EXAMINATION: XR knee LT 3V DATE: 06/02/2023 09:50 INDICATION: Left knee pain. Fall. TECHNIQUE: 3 views of left knee were obtained. COMPARISON: None. FINDINGS: There is a total left knee arthroplasty with patellar resurfacing in near-anatomic alignmen t. No fracture. No periprosthetic lucency to suggest loosening or infection. No knee joint effusion. IMPRESSION: 1. Total left knee arthroplasty in near-anatomic alignment. Reviewed, dictated and finalized at location A.
--- NOTE | ~2023-06-02 | CT_ITS ---
EXAMINATION: CTA chest PE protocol DATE: 06/02/2023 12:50 INDICATION: Atrial fibrillation with rapid ventricular rate. Elevated d-dimer. Elevated troponin. TECHNIQUE: Computed tomography angiography (CTA) of the chest was performed with 200 mL Omnipaque-350 intravenous contrast timed to evaluate the pulmonary arteries. Coronal maximum intensity projection 3D-reconstructions were created by the technologist. Automated exposure control and iterative reconst ruction technique were employed. The dose-length product was 1693.84 mGy-cm. COMPARISON: None. FINDINGS: There is mild emphysema. There is mild atelectasis bilaterally. No pleural effusion. The he art size is normal. No pericardial effusion. There is no pulmonary embolus. There is mild thoracic sp ondylosis. IMPRESSION: 1. No pulmonary embolus. 2. Mild emphysema. Reviewed, dictated and finalized at location A.
--- NOTE | ~2023-06-02 | CT_ITS ---
EXAMINATION: CT brain wo con DATE: 06/02/2023 10:00 INDICATION: Headache and weakness. Fall. TECHNIQUE: Computed tomography (CT) of the head was performed without intravenous contrast. Sagittal and coronal reconstructions were performed. The mA was adjusted according to patient size. Iterative reconstruction technique was employed. The dose-length product was 605.33 mGy-cm. COMPARISON: None FINDINGS: Hyperostosis frontalis. No fracture. No acute intracranial hemorrhage, acute infarction or abnormal e xtra axial fluid collection. There is mild scattered white matter hypoattenuation consistent with chr onic small vessel ischemic disease. Ventricles are normal and symmetric. No mass/mass effect. Change s of bilateral intraocular lens replacement. The orbits, paranasal sinuses and mastoid air cells are normal. Hyperostosis frontalis. IMPRESSION: 1. No fracture or acute intracranial process. 2. Mild scattered white matter hypoattenuation consistent with chronic small vessel ischemic disease. Reviewed, dictated and finalized at location B. IMPRESSION: 1. No fracture or acute intracranial process. 2. Mild scattered white matter hypoattenuation consistent with chronic small ve ssel ischemic disease.
--- NOTE | ~2023-06-02 | CT_ITS ---
EXAMINATION: CT cervical spine wo con DATE: 06/02/2023 10:01 INDICATION: Headache. Weakness. Fall. TECHNIQUE: Computed tomography (CT) of the cervical spine was performed without intravenous contrast. Automated exposure control and iterative reconstruction technique were employed. The dose-length pro duct was 428.20 mGy-cm. COMPARISON: None FINDINGS: Emphysema is noted. There is 7 degrees levocurvature of cervical spine. There is 2 mm anter olisthesis of C5 on C6. Vertebral body heights are normal. There is mildly decreased disc height at C 5-C6. The following disc levels are specifically discussed: C2-C3: There is mild bilateral uncovertebral joint osteoarthritis. There is severe right and moderate left facet joint osteoarthritis. There is no neural foraminal stenosis. There is no central canal st enosis. C3-C4: There is mild right uncovertebral joint osteoarthritis. There is severe bilateral facet joint osteoarthritis. There is mild bilateral neural foraminal stenosis. There is no central canal stenosis . C4-C5: There is no uncovertebral joint osteoarthritis. There is severe bilateral facet joint osteoart hritis. There is mild bilateral neural foraminal stenosis. There is no central canal stenosis. C5-C6: There is mild bilateral uncovertebral joint osteoarthritis. There is severe bilateral facet pamela int osteoarthritis. There is mild bilateral neural foraminal stenosis. There is mild central canal st enosis. C6-C7: There is no uncovertebral joint osteoarthritis. There is severe right and moderate left facet joint osteoarthritis. There is mild bilateral neural foraminal stenosis. There is no central canal st enosis. C7-T1: There is no uncovertebral joint osteoarthritis. There is severe right and moderate left facet joint osteoarthritis. There is mild right neural foraminal stenosis. There is no central canal stenos is. IMPRESSION: 1. No fracture. 2. Mild cervical spondylosis. Reviewed, dictated and finalized at location A.
--- NOTE | ~2023-06-02 | XR_ITS ---
EXAMINATION: XR knee RT 3V DATE: 06/02/2023 09:50 INDICATION: Right knee pain. Fall. TECHNIQUE: 3 views of right knee were obtained. COMPARISON: None. FINDINGS: There is a total right knee arthroplasty with patellar resurfacing in near-anatomic alignme nt. No fracture. No periprosthetic lucency to suggest loosening or infection. No knee joint effusion. IMPRESSION: 1. Total right knee arthroplasty in near-anatomic alignment. Reviewed, dictated and finalized at location A.
--- NOTE | ~2023-06-02 | US_ITS ---
EXAMINATION: US renal BI DATE: 06/04/2023 14:46 INDICATION: Urinary tract infection. Sepsis. TECHNIQUE: Multiple ultrasound grayscale images of the kidneys were obtained. COMPARISON: None. FINDINGS: The right kidney measures 11.0 x 5.4 x 5.7 cm. The left kidney measures 11.4 x 6.0 x 5.4 cm. The kidn eys demonstrate normal parenchymal echogenicity. There is no hydronephrosis. The bladder is not well distended. IMPRESSION: 1. Normal kidneys. No hydronephrosis. Reviewed, dictated and finalized at location E.
--- NOTE | 2023-06-02 08:53 | ED.WEAKNESS ---
HPI - Weakness General Chief complaint: Weakness <Roberto Elizabeth APRN - Last Filed: 06/02/23 15:11> Stated complaint: weakness <Roberto Elizabeth APRN - Last Filed: 06/02/23 15:11> Time Seen by Provider: 06/02/23 08:53 <Roberto Elizabeth APRN - Last Filed: 06/02/23 15:11> Source: patient <Roberto Elizabeth APRN - Last Filed: 06/02/23 15:11> Mode of arrival: ambulatory <Roberto Elizabeth APRN - Last Filed: 06/02/23 15:11> Limitations: no limitations <Roberto Elizabeth APRN - Last Filed: 06/02/23 15:11> History of Present Illness HPI Narrative: Yaneth is a 67-year-old female patient presenting to the ER today with complaints of weakness. States that she has had flu like symptoms times 3 days-body aches, chills, feeling feverish, cough, and periodically short of breath. Fell in the bathroom this morning and was on the floor. Complaining of headache, low back pain, and bilateral knee pain after fall. Temp is a 103? rectal. <Roberto Elizabeth APRN - Last Filed: 06/02/23 15:11> Related Data Home medications: Home Medications Medication Instructions Recorded Confirmed atorvastatin 40 mg tablet (Lipitor) 40 mg PO DAILY 12/04/19 06/02/23 metoprolol succinate 50 mg 50 mg PO DAILY 12/04/19 06/02/23 tablet,extended release 24 hr oxycodone-acetaminophen 10 mg-325 1 tablet PO DAILY PRN Pain 09/09/21 06/02/23 mg tablet alprazolam 2 mg tablet 2 mg PO TID PRN Anxiety 06/02/23 06/02/23 aripiprazole 30 mg tablet (Abilify) 30 mg PO HS PRN Insomnia 06/02/23 06/02/23 colestipol 1 gram tablet (Colestid) 1 g PO HS PRN diarrhea 06/02/23 06/02/23 dapagliflozin propanediol 10 mg 5 mg PO DAILY 04/12/24 04/12/24 tablet (Farxiga) desvenlafaxine succinate 100 mg 100 mg PO DAILY 06/02/23 06/02/23 tablet,extended release 24 hr (Pristiq) meloxicam 15 mg tablet 15 mg PO DAILY 06/02/23 06/02/23 mesalamine 1.2 gram tablet,delayed 1.2 g PO BID 06/02/23 06/02/23 release <Roberto Elizabeth APRN - Last Filed: 06/02/23 15:11> Allergies/Adverse reactions: Allergies Allergy/AdvReac Type Severity Reaction Status Date / Time codeine Allergy Intermediate Itching Verified 06/02/23 15:05 <Roberto Elizabeth APRN - Last Filed: 06/02/23 15:11> Review of Systems Review of Systems: Pertinent positives per HPI. Patient denies any rash, visual changes, dizziness, chest pain, palpitations, nausea, vomiting, diarrhea, constipation, abdominal pain, or any urinary issues. <Roberto Elizabeth APRN - Last Filed: 06/02/23 15:11> PMF Past Medical History Medical History: Medical History (Updated 06/02/23 @ 15:06 by Ashtyn Rock APRN) Anxiety Arthritis Bipolar disorder COPD (chronic obstructive pulmonary disease) Depression Esophageal stricture Fecal incontinence Fecal urgency Hepatic steatosis Hepatomegaly High risk medication use History of emphysema Hyperlipidemia Hypertension Mucus in stool Nasal septal perforation Obesity Obstructive sleep apnea Post-menopausal Psychiatric care Tongue, fissured Type 2 diabetes mellitus Ulcerative proctitis Vitamin D deficiency <Roberto Elizabeth APRN - Last Filed: 06/02/23 15:11> Surgical History Surgical History: Surgical History History of bilateral knee replacement History of section History of hysterectomy History of tonsillectomy <Roberto Elizabeth APRN - Last Filed: 06/02/23 15:11> Family History Family History: Family History Other Renal cell cancer <Roberto Elizabeth APRN - Last Filed: 06/02/23 15:11> Social History Social History: Social History Smoking packs per day: 1 Smoking cigarettes per day: 20.0 Years smoked: 34 Smoking pack-years: 34.00 Smoking status: Former smoker Tobacco ty
--- NOTE | 2023-06-02 08:58 | ECG_ITS ---
SEE SCANNED COPY FOR CONFIRMED REPORT MTDD
[2023-06-02 09:37] LABS: Appearance Urine Cloudy (Clear); Bacteria Urine 4+ /hpf; Bilirubin Urine Negative (Negative); Blood Urine 2+ (Negative); Color Urine Yellow (Yellow); Glucose Urine UA 3+ mg/dL (Negative); Ketones Urine Trace mg/dL (Negative); Leukocyte Esterase Ur 1+ LEU/UL (Negative); Nitrate Urine Positive (Negative); Protein Urine 2+ mg/dL (Negative); Specific Grav Ur 1.023 (1.001-1.035); Squamous Epithelial Cell Urine None Seen /hpf (Few); WBC Urine >100 /hpf (0-3); pH Urine 5.5 (5.0-9.0)
[2023-06-02 09:40] LABS: Add Urine Microscopic? YES
[2023-06-02 10:04] LABS: Influenza A QL RT-PCR Negative (Negative); Influenza B QL RT-PCR Negative (Negative); RSV RNA, RT-PCR Negative (Negative); SARS-CoV-2 RNA PCR Negative (Negative)
[2023-06-02] MEDS: ACETAMINOPHEN 500 MG TABLET 1000 MG PO ×2 (10:10→16:23)
[2023-06-02] MEDS: SODIUM CHLORIDE 0.9% IV 1,000 ML 999 ML IV CONT ×2 (10:13→14:35)
[2023-06-02 11:10] LABS: Basophils Percent Auto 0.3 % (0.2-1.2); Eosinophils Percent Auto 0.1 % (0-4.4); Hematocrit 38.7 % (37.0-47.0); Hemoglobin 12.3 g/dL (12.0-15.0); Immature Granulocyte Absolute 0.14 K/mm3 (0.00-0.031); Immature Granulocyte Percent A 0.9 % (0-0.5); Immature Platelet Fraction Pct 5.6 % (0.9-11.2); Lymphocytes Percent Auto 11.5 % (18.3-44.2); Mean Corpuscular HGB Conc 31.8 g/dl (32-36); Mean Corpuscular Hemoglobin 29.1 pg (26-34); Mean Corpuscular Volume 91.7 fl (80-100); Mean Platelet Volume 11.6 fl (7.4-10.4); Monocytes Absolute Auto 1.1 K/mm3 (0.1-0.6); Monocytes Percent Auto 7.6 % (2.6-8.5); Neutrophils Absolute Auto 11.8 K/mm3 (1.3-6.7); Neutrophils Percent Auto 79.6 % (45.5-73.1); Platelet Count Result 111 k/mm3 (150-375); Red Blood Count 4.22 M/mm3 (4.2-5.4); Red Cell Distribution Width 15.6 % (11.5-14.5); White Blood Count 14.8 K/mm3 (4.5-10.0)
[2023-06-02 11:19] LABS: INR 1.3; Prothrombin Time 17.1 Seconds (11.1-14.7)
[2023-06-02 11:20] LABS: Lactic Acid Reflex 2.6 mmol/L (0.7-2.0); Partial Thromboplastin Time 33.8 Seconds (22.3-36.8)
[2023-06-02 11:21] LABS: Alanine Aminotransferase 19 U/L (6-35); Albumin Level 2.9 g/dL (3.5-5.1); Alkaline Phosphatase 91 U/L (38-126); Anion Gap 5 mmol/L (4-12); Aspartate Amino Transferase 26 U/L (14-36); Bilirubin,Total 1.2 mg/dL (0.2-1.3); Blood Urea Nitrogen 22 mg/dL (7-17); Calcium 7.9 mg/dL (8.4-10.2); Carbon Dioxide 25 mmol/L (22-30); Chloride 108 mmol/L (98-107); Estimated CRCL calculation 59 ml/min; Estimated Glomerular Filt Rate > 60; Glucose 171 mg/dL (65-110); Potassium 4.3 mmol/L (3.4-5.0); Sodium 138 mmol/L (137-145)
[2023-06-02 11:37] LABS: NT Pro B Type Natriuretic Pept 2470 pg/mL (19.9-100); Troponin I 0.358 ng/mL (0.000-0.034)
[2023-06-02 11:53] LABS: CRP 19.5 mg/dL (<1.0)
[2023-06-02] MEDS: HEPARIN SODIUM 5,000 UNITS/ML VIAL 4000 UNITS IV PUSH (12:19)
[2023-06-02] MEDS: HEPARIN SOD/D5W 100 UNITS/ML 25,000 UNITS/250 ML BAG 8 UNITS IV CONT (12:25)
[2023-06-02 14:05] LABS: Reflex Lactic Acid Yes or No Add Lactic
--- NOTE | 2023-06-02 14:49 | PM.IMHP ---
H&P: HPI History of Present Illness Date/Time: 06/02/23 14:49 Chief Complaint: Weakness, Fall, Dehydration Narrative: 67 y/o F presents here with generalized weakness, ground level fall, dehydration, lethargy, and hypoxia with PMH of ulcerative proctitis, anxiety/depression, bipolar disorder, COPD, hepatic steatosis, HLD, nasal septal perforation, and type 2 diabetes. Patient presented here from home via EMS for further evaluation of generalized weakness, ground level fall, lethargy, dehydration. HPI obtained through [facility] and interview with due to patient condition with her permission. Patient reports the symptoms started approximately 1 week ago. Initially started with a headache and lethargy. Patient very immobile for the past few days and developed low back pain, fever, chills, and body aches. Also developed cough, panting, and intermittent shortness of breath. Ultimately sought care after she sustained a ground level fall from bed this morning and was too weak to support herself standing. Patient was attempting to get up to use the restroom but was not home to help her and she slid to the floor from the bed. No endorsement of LOC or head strike. Did tell she fell onto her elbow (unclear which one). Patient ultimately called EMS, found to be hypoxic with sat of 88% on RA. Able to be corrected with supplemental oxygen at 2L NC. Previous O2 requirement at night, uses 2L NC in leui of a CPAP because she is unable to tolerate it for more than 4 hours. Has hx of smoking, cessation 15 years ago, 1 PPD for 20 years. Patient continues to vape daily and continuously through the day per family. Arrived reporting headache, low back pain, and bilateral knee pain after she slid from the bed this morning. Sick contacts - family member with N/V x1 day. Did not report and dysuria, hematuria, urinary frequency, or flank pain to her . Has BRB in her stool, sees GI here for this and it is attributed to ulcerative proctitis. Initial VS at presentation: 103.8? F (rectal), HR 138, RR 46, 127/59, and 94% on RA. ED workup showed: WBC 14.8, no anemia, platelet count 111, creatinine 0.9 and GFR >60, glucose 171, lactic acid 2.6, calcium 7.9, CRP 19.5, BNP 2 470, albumin 2.9, and UA suggestive of UTI. Viral PCR negative for influenza, COVID, RSV. CXR showed emphysema and mild atelectasis in left lower lung zone. Chest CTA showed no PE and mild emphysema, no pneumonia or pulmonary edema. Review of Systems Review of Systems: All systems reviewed & are unremarkable except as noted in HPI and below PMFSH Past Medical History Medical History (Updated 06/02/23 @ 15:06 by Ashtyn Rock APRN) Anxiety Arthritis Bipolar disorder COPD (chronic obstructive pulmonary disease) Depression Esophageal stricture Fecal incontinence Fecal urgency Hepatic steatosis Hepatomegaly High risk medication use History of emphysema Hyperlipidemia Hypertension Mucus in stool Nasal septal perforation Obesity Obstructive sleep apnea Post-menopausal Psychiatric care Tongue, fissured Type 2 diabetes mellitus Ulcerative proctitis Vitamin D deficiency Surgical History Surgical History History of bilateral knee replacement History of section History of hysterectomy History of tonsillectomy Family History Family History Other Renal cell cancer Social History Social History Smoking packs per day: 1 Smoking cigarettes per day: 20.0 Years smoked: 34 Smoking pack-years: 34.00 Smoking status: Former smoker Tobacco type: cigarettes Smoking end date: 02/20/05 Additional smoking assessment comments: Still vapes, no nicotine Alcohol intake: never Substance use: never Substance use type: does not use Do You Feel Safe in your Home?: Ye
[2023-06-02] MEDS: SODIUM CHLORIDE 0.9% IV 1,000 ML 125 ML IV CONT (14:58)
--- NOTE | 2023-06-02 15:19 | ADMGEN ---
This patient, Yaneth Duarte, was admitted to IMU Room 206-02. Patient/family oriented to hospital policies and general routines including ID bracelet, bed and alarms, visiting hours, pain management, procedures, bathroom and other care routines, personal items, smoking policy, room service/diet, and visiting hours. Information on how to activate the Rapid Response Team has been discussed. Patient/Family are encouraged to report perceived risks to care and to ask questions if they do not understand what they are told or what they should do.
[2023-06-02] MEDS: ASPIRIN 81 MG CHEWABLE TABLET 324 MG PO (15:36)
[2023-06-02] MEDS: LACTATED RINGERS 1,000 ML 100 ML IV CONT (15:36)
--- NOTE | 2023-06-02 15:58 | PM.CNCAR ---
Assessment and Plan Assessment and plan (1) Non-ST elevation (NSTEMI) myocardial infarction: Code(s): I21.4 - Non-ST elevation (NSTEMI) myocardial infarction Status: Acute Plan This is a 67-year-old lady who presents with fevers chills rigors generalized weakness had a fall at home she has a relatively high fever on presentation. There are no clinical findings or electrocardiographic findings that would indicate an acute coronary event in my opinion. For reasons that are not indicated in the record troponin levels were sampled in the emergency room when are slightly elevated as detailed above. This is not in my opinion diagnostic of an acute coronary syndrome it is a result of significant febrile illness that is going on at this time. Ischemic cardiac workup/treatment is not necessary in my opinion I do not believe she needs to be systemically heparinized or least not for cardiac reasons Malachi Aviles MD [facility] History of Present Illness History of Present Illness Consult date/time: 06/02/23 15:58 Reason For Visit: NSTEMI, UTI, Weakness Narrative: This is a 67-year-old woman I am seeing this afternoon at the request of the hospitalist with the diagnosis of non ST elevation ID. Patient is unknown to me prior to this consultation and is being seen in IMU room 206. She came to the emergency room earlier this morning with the sense of chills and rigors that were occurring at home for the last 12-24 hours. She fell out of bed this morning and could not get up her could get her up off the floor so an ambulance was called she was brought into the hospital. She is not known to have heart disease and she is not reporting any chest pain of any kind. Her 12 lead electrocardiogram demonstrated marked sinus tachycardia with some PACs but no acute current of injury or ischemia. She had a significant fever of 103.8? rectally. Patient had chills and rigors going on. For some reason troponin levels were sampled in the 2 samples in the chart are 0.3 apparently prompting the diagnosis of non ST elevation ID and the consultation request. She has been placed on intravenous heparin presumably for this reason and I am seeing her in consultation. She is covered with her her blankets and still has shaking chills going on does not have any other complaints at this time. Review of Systems Constitutional: Constitutional: Reports chills and Reports fatigue Eyes: Eyes: Reports no additional eye complaints ENT: Reports system reviewed and no additional complaints, except as documented Cardiovascular: Cardiovascular: Reports no additional cardiovascular complaints Respiratory: Respiratory: Reports no additional respiratory complaints Gastrointestinal: Gastrointestinal: Reports no additional gastrointestinal complaints Musculoskeletal: Musculoskeletal: Reports no additional musculoskeletal complaints Integumentary/Breasts: Skin/Breast: Reports system reviewed and no additional complaints, except as docu Neurologic: Reports system reviewed and no additional complaints, except as documented Endocrine: Endocrine: Reports no additional endocrine complaints Hematologic/Lymphatic: Hematologic/Lymphatic: Reports no additional hematologic/lymphatic complaints Allergic/Immunologic: Allergic/Immunologic: Reports no additional allergic/immunologic complaints [facility] Past Medical History Medical History (Updated 06/02/23 @ 15:06 by Ashtyn Rock, CHERRY) Anxiety Arthritis Bipolar disorder COPD (chronic obstructive pulmonary disease) Depression Esophageal stricture Fecal incontinence Fecal urgency Hepatic steatosis Hepatomegaly High risk medication use History of emphysema Hyperlipidemia Hypertension Mucus in stool Nasal septal perforation Obesity Obstructive sleep apnea Post-menopausal Psychiatric care Tongue, fissured Type 2 diabetes mellitus Ulcerative proctitis Vitamin D deficiency Surgical History Surgical Histor
--- NOTE | 2023-06-02 16:12 | PC.NURSE ---
Ashtyn Rock [employer]OLOG[employer]KER notified of pt's temp and HR. Orders placed by [employer]OLOG[employer]ER
[2023-06-02 16:14] LABS: Glucose Point of Care 123 mg/dl (65-105)
[2023-06-02] MEDS: METOPROLOL TARTRATE INJ 5 MG/5 ML VIAL IV PUSH (16:23)
[2023-06-02] MEDS: KETOROLAC 30 MG/ML VIAL (*BKC) IV PUSH (16:23)
[2023-06-02] MEDS: AZITHROMYCIN 500 MG/NS 250 ML 500 MG/250 ML BAG 250 MG IVPB (16:29)
[2023-06-02] MEDS: methylPREDNISolone SOD SUCC 125 MG VIAL IV PUSH (16:34)
--- NOTE | 2023-06-02 16:39 | PC.NURSE ---
Addendum entered by Azra Villanueva RN 06/02/23 19:01: RN entered room at 1620 Original Note: RN to bedside. Pt tachypneic, tachycardic, and cyanotic. VS obtained. Call placed to KIM Chamorro. Dr. Brooke to bedside, manager mutual fund, and KIM Chamorro at bedside. IVP Lopressor, IVP Toradol given. Heparin gtt stopped. Azithromycin started. Pt placed on BiPAP and moved to ICU-1. called and notified of transfer.
[2023-06-02 16:54] LABS: Alveolar/Arterial O2 Gradient 205.1 mmHg; Base Excess ABG -6.7 mEq/l (+/-2.0); Fractional Inspired Oxygen 100 %; HCO3 ABG 16.7 mEq/l (22.0-26.0); Oxygen Saturation ABG 99.9 % (95.0-100.0); Oxyhemoglobin 98.1 % THb (90.0-100.0); PCO2 ABG 28.3 mmHg (35.0-45.0); PO2 ABG 479.6 mmHg (80.0-100.0); Total Hemoglobin 14.3 g/dL (12.0-18.0)
[2023-06-02 16:55] LABS: Site Drawn RIGHT BRACHIAL
[2023-06-02 16:56] LABS: Device BIPAP
[2023-06-02 16:57] LABS: Expiratory Pressure 6 cmH2O; Inspiratory Pressure 12 cmH2O
[2023-06-02 17:04] LABS: Basophils Percent Auto 0.4 % (0.2-1.2); Eosinophils Percent Auto 0.2 % (0-4.4); Hematocrit 42.9 % (37.0-47.0); Hemoglobin 13.5 g/dL (12.0-15.0); Immature Granulocyte Absolute 0.02 K/mm3 (0.00-0.031); Immature Granulocyte Percent A 0.4 % (0-0.5); Immature Platelet Fraction Pct 3.6 % (0.9-11.2); Lymphocytes Absolute Auto 0.92 K/mm3 (0.9-3.2); Lymphocytes Percent Auto 16.2 % (18.3-44.2); Mean Corpuscular HGB Conc 31.5 g/dl (32-36); Mean Corpuscular Volume 92.3 fl (80-100); Mean Platelet Volume 10.9 fl (7.4-10.4); Monocytes Absolute Auto 0.1 K/mm3 (0.1-0.6); Monocytes Percent Auto 1.2 % (2.6-8.5); Neutrophils Absolute Auto 4.6 K/mm3 (1.3-6.7); Neutrophils Percent Auto 81.6 % (45.5-73.1); Nucleated Red Blood Cells Perc 1.2 % (0.0-0.2); Platelet Count Result 97 k/mm3 (150-375); Red Blood Count 4.65 M/mm3 (4.2-5.4); Red Cell Distribution Width 15.5 % (11.5-14.5); White Blood Count 5.7 K/mm3 (4.5-10.0)
[2023-06-02 17:11] LABS: Creatine Kinase 253 U/L (30-135)
[2023-06-02 17:28] LABS: Troponin I 0.436 ng/mL (0.000-0.034)
[2023-06-02 17:39] LABS: Anisocytosis 1+; Platelet Estimate Decreased (Adequate)
[2023-06-02 17:40] LABS: Burr Cells 1+; Schistocytes None Seen
[2023-06-02] MEDS: CEFEPIME 2 GM/NS 50 ML 2 GM/50 ML BAG IVPB (17:42)
[2023-06-02] MEDS: VANCOMYCIN 2,000 MG/NS 500 ML 2,000 MG/500 ML BAG 250 MG IVPB (17:44)
--- NOTE | 2023-06-02 18:03 | PC.NURSE ---
This patient, Yaneth Duarte, was received from [facility] on 06/02/23 at 1700. Patient/family oriented to unit policies and routines
[2023-06-02 18:18] LABS: Procalcitonin 8.6 ng/mL
[2023-06-02 18:24] LABS: MRSA (PCR) NOT DETECTED (NOT DETECTE)
[2023-06-02 21:26] LABS: Glucose Point of Care 152 mg/dl (65-105)
[2023-06-03] VITALS (20 sets, daily range): BP systolic 110–145; BP diastolic 54–77; PULSE 69–100; RESP 18–25; TEMP 36.2–37.2; O2SAT 93–99
--- NOTE | 2023-06-03 | ECHO_ITS ---
Patient Info Name: Yaneth Duarte Age: 67 years : 1955 Gender: Female Ht: 67 in Wt: 170 lbs BSA: 1.92 m2 HR: 75 bpm BP: 122 / 50 mmHg Heart Rhythm: Sinus Rhythm Technical Quality: Good Exam Date: 06/03/2023 7:10 AM Exam Location: Echo Lab Patient Status: Inpatient Admit Date: 06/02/2023 Staff Ordering Physician: Ashtyn Rock APRN Shell Sorter: Derrell Alfaro RDCS Attending Provider: Dominguez Brooke DO Referring Physician: Pranav SERVIN; Exam Type: CA echo doppler color flow Study Info Indications - elevated BNP, hypoxia Complete two-dimensional, color flow and Doppler transthoracic echocardiogram is performed. Summary 1. Complete two-dimensional, color flow and Doppler transthoracic echocardiogram is performed. 2. Left ventricular chamber dimension is normal. 3. Left ventricular systolic function is normal, estimated at 55-60%. 4. There is mildly increased left ventricular wall thickness. 5. The left ventricular diastolic function is grade I diastolic dysfunction. 6. Right ventricular chamber dimension is normal. 7. Right ventricular systolic function is normal. 8. There is trace mitral valve regurgitation. 9. The tricuspid valve leaflets are normal. 10. There is no aortic valve sclerosis. 11. There is no aortic valve regurgitation. Left Ventricle Left ventricular chamber dimension is normal. Left ventricular systolic function is normal, estimated at 55-60%. There is mildly increased left ventricular wall thickness. Left ventricular septal wall motion is normal. The left ventricular diastolic function is grade I diastolic dysfunction. Right Ventricle Right ventricular chamber dimension is normal. Right ventricular systolic function is normal. Left Atria Left atrial chamber dimension is normal. Right Atria Right atrial chamber dimension is normal. Aortic Valve The aortic valve is trileaflet. There is no aortic valve sclerosis. There is no aortic valve stenosis. There is no aortic valve regurgitation. Pulmonic Valve There is no pulmonic valve stenosis. There is no pulmonic regurgitation. Pulmonary valve is not well visualized. Mitral Valve The mitral valve has normal leaflets. There is no mitral valve stenosis. There is trace mitral valve regurgitation. Tricuspid Valve The tricuspid valve leaflets are normal. There is no significant tricuspid valve stenosis. There is no tricuspid valve regurgitation. No pulmonary hypertension, estimated pulmonary arterial systolic pressure is 31 mmHg. Pericardium/Pleural The pericardium appears normal. There is no pericardial effusion. Inferior Vena Cava Normal inferior vena cava with >50% collapse upon inspiration consistent with normal right atrial pressure, 10 mmHg. Aorta The aortic root size at the sinus of Valsalva is normal. The prox ascending aorta size is normal. Left Ventricular Outflow Tract Name Value Normal LVOT 2D LVOT Diameter 2.1 cm LVOT Doppler LVOT Peak Gradient 3 mmHg LVOT Mean Gradient 2 mmHg LVOT VTI 21 cm LVOT VTI/AV VTI Ratio 0.9 LVOT Stroke Volume
[2023-06-03] MEDS: methylPREDNISolone SOD SUCC 125 MG VIAL 80 MG IV PUSH ×4 (00:04→18:28)
[2023-06-03 04:33] LABS: Basophils Percent Auto 0.3 % (0.2-1.2); Hematocrit 38.2 % (37.0-47.0); Hemoglobin 12.5 g/dL (12.0-15.0); Immature Granulocyte Absolute 0.19 K/mm3 (0.00-0.031); Immature Granulocyte Percent A 1.7 % (0-0.5); Lymphocytes Absolute Auto 1.08 K/mm3 (0.9-3.2); Lymphocytes Percent Auto 9.9 % (18.3-44.2); Mean Corpuscular HGB Conc 32.7 g/dl (32-36); Mean Corpuscular Hemoglobin 29.7 pg (26-34); Mean Corpuscular Volume 90.7 fl (80-100); Mean Platelet Volume 11.3 fl (7.4-10.4); Monocytes Absolute Auto 0.3 K/mm3 (0.1-0.6); Monocytes Percent Auto 2.4 % (2.6-8.5); Neutrophils Absolute Auto 9.4 K/mm3 (1.3-6.7); Neutrophils Percent Auto 85.7 % (45.5-73.1); Platelet Count Result 105 k/mm3 (150-375); Red Blood Count 4.21 M/mm3 (4.2-5.4); Red Cell Distribution Width 15.7 % (11.5-14.5); White Blood Count 10.9 K/mm3 (4.5-10.0)
[2023-06-03 04:58] LABS: Alanine Aminotransferase 20 U/L (6-35); Alkaline Phosphatase 80 U/L (38-126); Anion Gap 7 mmol/L (4-12); Aspartate Amino Transferase 27 U/L (14-36); Bilirubin,Total 0.7 mg/dL (0.2-1.3); Blood Urea Nitrogen 23 mg/dL (7-17); Calcium 8.4 mg/dL (8.4-10.2); Carbon Dioxide 21 mmol/L (22-30); Chloride 113 mmol/L (98-107); Creatine Kinase 133 U/L (30-135); Estimated CRCL calculation 65 ml/min; Estimated Glomerular Filt Rate > 60; Glucose 159 mg/dL (65-110); Magnesium 2.4 mg/dL (1.6-2.3); Phosphorus 3.8 mg/dL (2.5-4.5); Potassium 3.6 mmol/L (3.4-5.0); Sodium 141 mmol/L (137-145)
[2023-06-03 05:18] LABS: Hemoglobin A1C 6.8 % (<5.7)
[2023-06-03] MEDS: CEFEPIME 2 GM/NS 50 ML 2 GM/50 ML BAG IVPB ×2 (05:32→16:09)
[2023-06-03 05:34] LABS: Thyroid Stimulating Hormone Reflex 0.566 uIU/mL (0.465-4.68)
[2023-06-03 07:43] LABS: Glucose Point of Care 152 mg/dl (65-105)
[2023-06-03] MEDS: MELOXICAM 7.5 MG TABLET 15 MG PO (08:11)
[2023-06-03] MEDS: ATORVASTATIN 40 MG TABLET PO (08:11)
[2023-06-03] MEDS: DESVENLAFAXINE SUCCINATE 50 MG TAB.ER.24H 100 MG PO (08:11)
[2023-06-03] MEDS: MESALAMINE 400 MG DELAYED RELEASE CAPSULE 1200 MG PO (08:42)
[2023-06-03 11:39] LABS: Glucose Point of Care 190 mg/dl (65-105)
--- NOTE | 2023-06-03 14:57 | PM.IMPN ---
Progress Note: A&P Assessment and Plan (1) Sepsis: Code(s): A41.9 - Sepsis, unspecified organism Status: Acute Assessment and Plan: Patient met SIRS criteria with elevated HR, RR, temp, WBC and lactic acid to 2.6 Appropriately fluid resuscitated. PCT 8.6. MRSA not detected CXR: emphysema and mild atelectasis in the left lower lung zone. Chest CTA: no PE and mild emphysema BCx 06/01:GNB SpCx ordered UA consistent with UTI. UCx 06/01: Ecoli Suspected source: UTI with urosepsis Started on ceftriaxone and azithromycin on 06/01 -> escalated to cefepime and vancomycin on 06/01 Patricia placed Follow up on culture results Stop Vanco not and narrow abx when able. Patricia out tomorrow (2) Hypoxia: Code(s): R09.02 - Hypoxemia Status: Acute Assessment and Plan: Imaging as above. ABG 7.39/28/479 on BiPAP. Influenza, RSV and COVID PCR negative. Consider LLL PNA but felt less likely. Consider COPD exacerbation. Continue bronchodilators and Solu-Medrol x 4 doses. Wean o2 as tolerated Recent sleep study noted Continue CPAP as she tolerates with sleep. Wean O2 as tolerated (3) Non-ST elevation (NSTEMI) myocardial infarction: Code(s): I21.4 - Non-ST elevation (NSTEMI) myocardial infarction Status: Acute Assessment and Plan: Troponin to 0.436. EKG showing sinus tachycardia with heart rate of 138, moderate ST depression. ASA given once. Cardiology consulted and does not believe elevation in troponin is related to ischemic changes. Echo showing EF EF 55-60%, mildly increased LV thickness and Grade I diastolic dysfunction. No significant valvular disease Continue Lipitor and Torpol. (4) Acute UTI: Code(s): N39.0 - Urinary tract infection, site not specified Status: Acute Assessment and Plan: UA is consistent with UTI. UCx collected. Abx started. Old UCx reviewed. UCx as above. Follow up on UCx results. (5) Weakness: Code(s): R53.1 - Weakness Status: Acute Assessment and Plan: Related to above. PT/OT (6) Type 2 diabetes mellitus with hyperglycemia, with long-term current use of insulin: Code(s): E11.65 - Type 2 diabetes mellitus with hyperglycemia; Z79.4 - [facility] (current) use of insulin Status: Acute Assessment and Plan: A1c 6.8. The patient's blood glucose was reviewed on 06/02 Glucose remains reasonably well controlled. Continue AccuCheks covering with sliding scale. Hypoglycemia protocol available as needed. Continue agility instructor monitor. Should improve off steroids. (7) Hypertension: Code(s): I10 - Essential (primary) hypertension Status: Acute Assessment and Plan: Patient's blood pressure was reviewed on 06/02 Blood pressure remains well controlled. Will continue to monitor Plan TCP - Plt count 105K. Off Heparin now. Could be related to sepsis. 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 Patient is up to the chair. No nausea, vomiting or diarrhea. She slept well last night and she wore CPAP. She does not wear oxygen at home except as needed at night when she does not wear her CPAP. No chest pain or abdominal pain. She does complain of back pain and knee pain felt related to the falls. Exam Narrative: AF 98.4 140/68 90 18 96% ra Gen - NARD Chest - distant BS. nml RR CV - RRR S1/S2. Tele showing no significant dysrhythmias Abd - Soft, NT/ND, Positive BS - Patricia secured draining clear yellow urine Ext - No pedal edema Psych - Nml mood and affect Skin - Warm and dry. small skin tear right falcon Objective Data Vital Signs Vital Signs: Vital Signs - 24 hr 06/02/23 15:13 06/02/23 14:59 06/02/23 16:00 Temperature 97.2 F L Pulse Rate 103 H Respiratory Rate 18 Blood Pressure 1
[2023-06-03 16:43] LABS: Glucose Point of Care 196 mg/dl (65-105)
--- NOTE | 2023-06-03 16:51 | PC.NURSE ---
This patient, Yaneth Duarte, was transferred to [facility] on 06/03/23 at 1639. Personal belongings sent with patient. Report given to Jessica MENDOZA. Appropriate documentation sent with patient. Family at bedside and aware of room change.
[2023-06-03] MEDS: METOPROLOL SUCCINATE EXT REL 50 MG TABCR PO (18:29)
--- NOTE | 2023-06-03 18:46 | PC.NURSE ---
Unable to collect sputum specimen. The pt is unable to cough up enough sputum.
--- NOTE | 2023-06-03 19:28 | PC.NURSE ---
1639 The pt has been transferred to the ICU. Escorted per RN et PCT. Belongings placed in the closet. Denies pain no distress. Orientation given to the unit at the time of admit to the IMU.
[2023-06-03 21:00] LABS: Glucose Point of Care 228 mg/dl (65-105)
[2023-06-03] MEDS: INSULIN ASPART (*BKC) 100 UNITS/ML SUB-Q (21:31)
--- NOTE | 2023-06-03 23:16 | PC.NURSE ---
Received report from Geri MENDOZA at [id number]. This RN taking over care.
[2023-06-04] VITALS (19 sets, daily range): BP systolic 148–177; BP diastolic 62–76; PULSE 51–91; RESP 18–23; TEMP 36.3–36.8; O2SAT 93–99
[2023-06-04] MEDS: CEFEPIME 2 GM/NS 50 ML 2 GM/50 ML BAG IVPB (04:01)
[2023-06-04 04:56] LABS: Basophils Percent Auto 0.2 % (0.2-1.2); Hematocrit 35.8 % (37.0-47.0); Hemoglobin 11.7 g/dL (12.0-15.0); Immature Granulocyte Percent A 0.8 % (0-0.5); Lymphocytes Absolute Auto 1.04 K/mm3 (0.9-3.2); Lymphocytes Percent Auto 8.3 % (18.3-44.2); Mean Corpuscular HGB Conc 32.7 g/dl (32-36); Mean Corpuscular Hemoglobin 28.7 pg (26-34); Mean Platelet Volume 11.9 fl (7.4-10.4); Monocytes Absolute Auto 0.3 K/mm3 (0.1-0.6); Monocytes Percent Auto 2.4 % (2.6-8.5); Neutrophils Percent Auto 88.3 % (45.5-73.1); Platelet Count Result 141 k/mm3 (150-375); Red Blood Count 4.07 M/mm3 (4.2-5.4); Red Cell Distribution Width 15.2 % (11.5-14.5); White Blood Count 12.5 K/mm3 (4.5-10.0)
[2023-06-04 04:58] LABS: Albumin Level 2.9 g/dL (3.5-5.1); Anion Gap 6 mmol/L (4-12); Blood Urea Nitrogen 26 mg/dL (7-17); Calcium 8.8 mg/dL (8.4-10.2); Carbon Dioxide 21 mmol/L (22-30); Chloride 112 mmol/L (98-107); Estimated CRCL calculation 87 ml/min; Estimated Glomerular Filt Rate > 60; Glucose 222 mg/dL (65-110); Magnesium 2.3 mg/dL (1.6-2.3); Phosphorus 3.3 mg/dL (2.5-4.5); Potassium 3.6 mmol/L (3.4-5.0); Sodium 139 mmol/L (137-145)
[2023-06-04 08:01] LABS: Glucose Point of Care 200 mg/dl (65-105)
[2023-06-04] MEDS: ATORVASTATIN 40 MG TABLET PO (09:58)
[2023-06-04] MEDS: MESALAMINE 400 MG DELAYED RELEASE CAPSULE PO ×3 (09:59→18:02)
[2023-06-04] MEDS: oxyCODONE/ACETAMINOPHEN (*CRX) 10-325 MG TABLET 1 TAB PO (10:03)
[2023-06-04] MEDS: DESVENLAFAXINE SUCCINATE 50 MG TAB.ER.24H 100 MG PO (10:04)
--- NOTE | 2023-06-04 12:38 | PM.IMPN ---
Progress Note: A&P Assessment and Plan (1) Sepsis: Code(s): A41.9 - Sepsis, unspecified organism Status: Acute Assessment and Plan: Patient met SIRS criteria with elevated HR, RR, temp, WBC and lactic acid to 2.6. Fever to 105.5 Appropriately fluid resuscitated. PCT 8.6. MRSA not detected CXR: emphysema and mild atelectasis in the left lower lung zone. Chest CTA: no PE but atelectasis and mild emphysema BCx 06/01: EColi SpCx ordered UA consistent with UTI. UCx 06/01: Ecoli that is jara-sensitive Suspected source: UTI with urosepsis Started on ceftriaxone and azithromycin on 06/01 -> escalated to cefepime and vancomycin on 06/01 Patricia placed but now removed Continue current abx. Follow up on culture results Check renal US Hold dapagliflozin and will not resume at discharge given side effects (2) Non-ST elevation (NSTEMI) myocardial infarction: Code(s): I21.4 - Non-ST elevation (NSTEMI) myocardial infarction Status: Acute Assessment and Plan: Troponin to 0.436. EKG showing sinus tachycardia with heart rate of 138, moderate ST depression. ASA given once. Cardiology consulted and does not believe elevation in troponin is related to ischemic changes. Echo showing EF EF 55-60%, mildly increased LV thickness and Grade I diastolic dysfunction. No significant valvular disease Had atypical CP (occurred at rest and palpable) this morning. Doubt coronary ischemia. Doubt PE (negative CTA on admission) Continue Lipitor and Toprol. Monitor on Tele (3) Hypoxia: Code(s): R09.02 - Hypoxemia Status: Acute Assessment and Plan: Imaging as above. ABG 7.39/479 on BiPAP. Influenza, RSV and COVID PCR negative. Consider LLL PNA but felt less likely. Consider COPD exacerbation. Status post Solu-Medrol x 4 doses Recent sleep study noted Continue CPAP as she tolerates with sleep. Weaned to RA now. Follow (4) Acute UTI: Code(s): N39.0 - Urinary tract infection, site not specified Status: Acute Assessment and Plan: UA is consistent with UTI. UCx collected. Abx started. Old UCx reviewed. UCx as above. Continue abx (5) Weakness: Code(s): R53.1 - Weakness Status: Acute Assessment and Plan: Related to above. PT/OT (6) Type 2 diabetes mellitus with hyperglycemia, with long-term current use of insulin: Code(s): E11.65 - Type 2 diabetes mellitus with hyperglycemia; Z79.4 - [facility] (current) use of insulin Status: Acute Assessment and Plan: A1c 6.8. The patient's blood glucose was reviewed on 06/03 Glucose remains elevated. Last dose of steroids was last evening Continue AccuCheks covering with sliding scale. Hypoglycemia protocol available as needed. Continue to monitor. Add lantus. Change to diabetic diet (7) Hypertension: Code(s): I10 - Essential (primary) hypertension Status: Acute Assessment and Plan: Patient's blood pressure was reviewed on 06/03 Blood pressure more elevated now. She is off IVF and steroids now Will continue to monitor for now but add Norvasc tomorrow if not better (8) Fall: Code(s): W19.XXXA - Unspecified fall, initial encounter Status: Acute Assessment and Plan: Patient fell prior to admission.? Bilateral knee x-ray showed total knee arthroplasties in near anatomic alignment.? CT of the brain showed no fracture or acute intracranial process.? Lumbar spine CT showed no fracture but did show moderate lumbar spondylosis.? Cervical spine CT showed no fracture but mild cervical spondylosis.? PT OT.? Increase activity. Plan TCP - Plt count better at 141K. Off Heparin now. [place] related to sepsis. Follow DVT Prophylaxis: Lovenox Code Status: Full code Subjective Date/time seen: 06/04/23 12:38 Interval history: 67yo female with ulcerative proctitis, Bipolar, CHINO, COPD and DM here for GNW and falls. No problems overngiht. Up walking to the
[2023-06-04] MEDS: INSULIN ASPART (*BKC) 100 UNITS/ML SUB-Q ×2 (12:44→20:58)
[2023-06-04 12:46] LABS: Glucose Point of Care 245 mg/dl (65-105)
[2023-06-04] MEDS: ENOXAPARIN 40 MG/0.4 ML SYRINGE SUB-Q (15:16)
--- NOTE | 2023-06-04 15:28 | PC.NURSE ---
This patient, Yaneth Duarte, was transferred to [facility] on 06/04/23 at 1528. Personal belongings sent with patient. Report given to Leila MENDOZA. Appropriate documentation sent with patient.
[2023-06-04 17:06] LABS: Glucose Point of Care 185 mg/dl (65-105)
[2023-06-04] MEDS: METOPROLOL SUCCINATE EXT REL 50 MG TABCR PO (17:29)
[2023-06-04] MEDS: ACETAMINOPHEN 500 MG TABLET 1000 MG PO (17:43)
[2023-06-04] MEDS: INSULIN GLARGINE (*BKC) 100 UNITS/ML 13 UNITS SUB-Q (20:59)
[2023-06-05] VITALS (7 sets, daily range): BP systolic 151–160; BP diastolic 59–86; PULSE 55–75; RESP 18–20; TEMP 36.1–36.9; O2SAT 98–100
[2023-06-05 05:26] LABS: Basophils Percent Auto 0.2 % (0.2-1.2); Hemoglobin 12.6 g/dL (12.0-15.0); Immature Granulocyte Absolute 0.06 K/mm3 (0.00-0.031); Immature Granulocyte Percent A 0.5 % (0-0.5); Lymphocytes Absolute Auto 1.51 K/mm3 (0.9-3.2); Lymphocytes Percent Auto 13.2 % (18.3-44.2); Mean Corpuscular HGB Conc 33.2 g/dl (32-36); Mean Corpuscular Hemoglobin 29.3 pg (26-34); Mean Corpuscular Volume 88.4 fl (80-100); Mean Platelet Volume 11.7 fl (7.4-10.4); Monocytes Absolute Auto 0.5 K/mm3 (0.1-0.6); Monocytes Percent Auto 4.4 % (2.6-8.5); Neutrophils Absolute Auto 9.4 K/mm3 (1.3-6.7); Neutrophils Percent Auto 81.7 % (45.5-73.1); Platelet Count Result 154 k/mm3 (150-375); Red Cell Distribution Width 15.4 % (11.5-14.5); White Blood Count 11.5 K/mm3 (4.5-10.0)
[2023-06-05 05:43] LABS: Alanine Aminotransferase 23 U/L (6-35); Albumin Level 3.2 g/dL (3.5-5.1); Alkaline Phosphatase 82 U/L (38-126); Anion Gap 7 mmol/L (4-12); Aspartate Amino Transferase 24 U/L (14-36); Bilirubin,Total 0.6 mg/dL (0.2-1.3); Blood Urea Nitrogen 27 mg/dL (7-17); Calcium 9.3 mg/dL (8.4-10.2); Carbon Dioxide 23 mmol/L (22-30); Chloride 109 mmol/L (98-107); Estimated CRCL calculation 75 ml/min; Estimated Glomerular Filt Rate > 60; Glucose 175 mg/dL (65-110); Sodium 139 mmol/L (137-145)
[2023-06-05 08:25] LABS: Glucose Point of Care 221 mg/dl (65-105)
[2023-06-05 08:36] LABS: Glucose Point of Care 121 mg/dl (65-105)
[2023-06-05] MEDS: levoFLOXacin 750 MG TABLET PO (09:08)
[2023-06-05] MEDS: MESALAMINE 400 MG DELAYED RELEASE CAPSULE PO ×2 (09:09→12:27)
[2023-06-05] MEDS: ENOXAPARIN 40 MG/0.4 ML SYRINGE SUB-Q (09:09)
--- NOTE | 2023-06-05 11:00 | PCPTNOTE ---
Attempted to see patient for PT, however patient declined due to anticipated discharge.
[2023-06-05 12:08] LABS: Glucose Point of Care 121 mg/dl (65-105)
[2023-06-05] MEDS: DESVENLAFAXINE SUCCINATE 50 MG TAB.ER.24H 100 MG PO (12:28)
[2023-06-05] MEDS: oxyCODONE/ACETAMINOPHEN (*CRX) 10-325 MG TABLET 1 TAB PO (12:28)
--- NOTE | 2023-06-05 13:27 | PM.DS ---
DS: Admitting Diagnosis Discharge Date 06/05/23 Admitting Diagnosis Weakness and fall DS: Discharge Diagnosis Discharge Diagnosis (1) Sepsis: Code(s): A41.9 - Sepsis, unspecified organism Status: Acute (2) Non-ST elevation (NSTEMI) myocardial infarction: Code(s): I21.4 - Non-ST elevation (NSTEMI) myocardial infarction Status: Acute (3) Hypoxia: Code(s): R09.02 - Hypoxemia Status: Acute (4) Acute UTI: Code(s): N39.0 - Urinary tract infection, site not specified Status: Acute (5) Weakness: Code(s): R53.1 - Weakness Status: Acute (6) Type 2 diabetes mellitus with hyperglycemia, with long-term current use of insulin: Code(s): E11.65 - Type 2 diabetes mellitus with hyperglycemia; Z79.4 - jail (current) use of insulin Status: Acute (7) Hypertension: Code(s): I10 - Essential (primary) hypertension Status: Acute (8) Fall: Code(s): W19.XXXA - Unspecified fall, initial encounter Status: Acute DS: Summary Hospital Course Reason for hospitalization: 67yo female with ulcerative proctitis, Bipolar, CHINO, COPD and DM here for GNW and falls. Please see H&P for details. Hospital Course: Patient met SIRS criteria with elevated HR, RR, temp, WBC and lactic acid to 2.6. Fever to 105.5. Appropriately fluid resuscitated.? PCT 8.6.? MRSA not detected. CXR showing emphysema and mild atelectasis in the left lower lung zone. Chest CTA showing no PE but atelectasis and mild emphysema. UA consistent with UTI. UCx 4/: Ecoli that is jara-sensitive. BCx / growing EColi that was also jara-sensitive. Suspected source of sepsis was UTI with urosepsis. She was started on ceftriaxone and azithromycin on 06/01 but escalated to cefepime and vancomycin on 06/01. Patricia placed but now removed. Renal US showing no abnormalities. Antibiotics narrowed to Levaquin. Held dapagliflozin and will not resume at discharge given side effects. Troponin to 0.436. EKG showing sinus tachycardia with heart rate of 138, moderate ST depression. ASA given once. Echo showing EF EF 55-60%, mildly increased LV thickness and Grade I diastolic dysfunction. No significant valvular disease. Cardiology consulted and did not believe elevation in troponin is related to ischemic changes but more likely related to the sepsis picture. We continued Lipitor and Toprol. Patient was hypoxic with ABG 7.39/28/479 on BiPAP. Influenza, RSV and COVID PCR negative. Possible LLL PNA but felt less likely. Possible COPD exacerbation and given Solu-Medrol x 4 doses. We continued CPAP here. She was able to be weaned to RA. Low platelet count felt related to sepsis. This has improved. Patient fell prior to admission.? Bilateral knee x-ray showed total knee arthroplasties in near anatomic alignment.? CT of the brain showed no fracture or acute intracranial process.? Lumbar spine CT showed no fracture but did show moderate lumbar spondylosis.? Cervical spine CT showed no fracture but mild cervical spondylosis.?She worked with PT OT.? She has been up walking to the bathroom. She feels much better. She overall did well and was able to be discharged home on 06/05/23 Status at Discharge Cognitive/behavioral status at discharge: stable Time Spent with Patient Time attestation: Total time spent providing and/or coordinating discharge services: 38 minutes Time spent: Greater than 30 minutes Exam Narrative: AF 97.7 160/83 67 18 99% ra Gen - NARD Chest - CTA bilaterally CV - RRR S1/S2. Tele showing PVCs Abd - Soft, NT/ND, Positive BS Ext - No pedal edema Psych - Nml mood and affect Skin - Warm and dry. DS: Data Data Completed and Pending Labs on day of discharge: Labs from last 24 hours 06/05/23 06/05/23 06/05/23 11:58 08:30 05:06 WBC 11.5 H RBC 4.30 Hgb 12.6 Hct 38.0 MCV 88.4 MCH 29.3 MCHC 33.2 RDW 15.4 H Plt Count 154 MPV 11.7 H Immature Gra
== END 2023-06-05 15:00 | disposition home or self-care (01) | DRG 872 ==
LOC: ANHED 13:19 → ANHICU 06-03 06:55 → ANH3MED 06-05 10:20 → ANHICU 06-06 13:15 → ANHIMU 06-06 13:15
PROVIDERS: Student in an Organized Health Care Education/Training Program; Admitting Provider Student in an Organized Health Care Education/Training Program; Emergency Provider Nurse Practitioner Family; PCP Family Medicine; Visit Provider Internal Medicine
DX: A41.51 Sepsis due to Escherichia coli [E. coli] (principal); I24.89 Other forms of acute ischemic heart disease; N39.0 Urinary tract infection, site not specified; K51.20 Ulcerative (chronic) proctitis without complications; I10 Essential (primary) hypertension; J43.9 Emphysema, unspecified; K22.2 Esophageal obstruction; K76.0 Fatty (change of) liver, not elsewhere classified; E78.5 Hyperlipidemia, unspecified; E11.9 Type 2 diabetes mellitus without complications; E55.9 Vitamin D deficiency, unspecified; R09.02 Hypoxemia; M25.561 Pain in right knee; M25.562 Pain in left knee; M47.816 Spondylosis without myelopathy or radiculopathy, lumbar region; M47.812 Spondylosis without myelopathy or radiculopathy, cervical region; G47.33 Obstructive sleep apnea (adult) (pediatric); F31.9 Bipolar disorder, unspecified; F41.9 Anxiety disorder, unspecified; F17.290 Nicotine dependence, other tobacco product, uncomplicated; W06.XXXA Fall from bed, initial encounter; Z20.822 Contact with and (suspected) exposure to COVID-19; Z96.653 Presence of artificial knee joint, bilateral; Z79.899 Other long term (current) drug therapy; Z79.4 Long term (current) use of insulin
CPT/HCPCS: 36415; 36600; 70450; 71046; 71275; 72125; 72131; 73562; 76775; 80053; 80069; 81001; 82550; 82805; 82948; 83036; 83605; 83735; 83880; 84100; 84145; 84443; 84484; 85025; 85055; 85380; 85610; 85730; 86140; 87040; 87077; 87086; 87088; 87186; 87637; 87641; 93005; 93306; 94002; 94003; 97110; 97116; 97161; 97165; A9270; J0456; J0692; J0696; J1644; J1650; J1815; J1885; J2919; J3370; J7030; J7120; Q9967

== ENCOUNTER 2023-08-13 08:25 | Emergency (ER) | payer MEDICARE, SELFPAY ==
[2023-08-13 08:31] VITALS: BP 145/75; PULSE 99; RESP 20; TEMP 36.3; O2SAT 98
--- NOTE | 2023-08-13 08:37 | ED.GENADULT ---
HPI - General Adult General Chief complaint: Allergic Reaction Stated complaint: joint paint and stiffness after taking bactrum Time Seen by Provider: 08/13/23 08:28 History of Present Illness HPI narrative: 67-year-old female presenting to the emergency department for evaluation for an adverse reaction to Bactrim. Patient has a cellulitis on the right leg that has been slow to heal. Patient states that is healing well. Patient had been on Keflex and her primary care physician called stated that she needed to be on a different antibiotic and patient was switched to Bactrim on Monday. Patient states taking the Bactrim she has had increased joint pain and body aches. Patient denies any associated fevers. Patient denies any difficulty breathing or swallowing. Related Data Home Medications Medication Instructions Recorded Confirmed atorvastatin 40 mg tablet (Lipitor) 40 mg PO DAILY 12/04/19 07/19/23 metoprolol succinate 50 mg 50 mg PO DAILY 12/04/19 07/19/23 tablet,extended release 24 hr oxycodone-acetaminophen 10 mg-325 1 tablet PO DAILY PRN Pain 09/09/21 07/19/23 mg tablet alprazolam 2 mg tablet 2 mg PO TID PRN Anxiety 06/02/23 07/19/23 aripiprazole 30 mg tablet (Abilify) 30 mg PO HS PRN Insomnia 06/02/23 07/19/23 dapagliflozin propanediol 10 mg 5 mg PO DAILY 06/02/23 07/19/23 tablet (Farxiga) desvenlafaxine succinate 100 mg 100 mg PO DAILY 06/02/23 07/19/23 tablet,extended release 24 hr (Pristiq) meloxicam 15 mg tablet 15 mg PO DAILY 06/02/23 07/19/23 mesalamine 1.2 gram tablet,delayed 1.2 g PO DAILY 06/22/23 07/19/23 release Allergies Allergy/AdvReac Type Severity Reaction Status Date / Time codeine Allergy Intermediate Itching Verified 08/13/23 08:26 Review of Systems Review of Systems: All systems reviewed & are unremarkable except as noted in HPI and below PMFSH Past Medical History Medical History Anxiety Arthritis Bipolar disorder COPD (chronic obstructive pulmonary disease) Depression Esophageal stricture Fecal incontinence Fecal urgency Hepatic steatosis Hepatomegaly High risk medication use History of emphysema Hyperlipidemia Hypertension Mucus in stool Nasal septal perforation Obesity Obstructive sleep apnea Post-menopausal Psychiatric care Tongue, fissured Type 2 diabetes mellitus Ulcerative proctitis Vitamin D deficiency Surgical History Surgical History History of bilateral knee replacement History of section History of hysterectomy History of tonsillectomy Family History Family History Other Renal cell cancer Social History Social History Smoking packs per day: 1 Smoking cigarettes per day: 20.0 Years smoked: 34 Smoking pack-years: 34.00 Smoking status: Former smoker Tobacco type: cigarettes Smoking end date: 02/20/05 Additional smoking assessment comments: Still vapes, no nicotine Alcohol intake: never Substance use: never Substance use type: does not use Do You Feel Safe in your Home?: Yes Lack of Transportation: No Lack of Food: Never True Current Housing: I Have Housing Concerned About Future Housing: No Difficulty Paying Gas/Electric Bills: No Difficulty Paying for Meds: No Currently Unemployed: No Education: High School Diploma/GED Difficulty w/ Childcare or Family Care: No Living arrangements: with family Gender identity (if verbalized by the patient): Female Spiritual care concerns: No Exam Narrative: APPEARANCE: Well appearing, no pain, no distress, well-nourished. HEAD: normocephalic, atraumatic. EYES: PERRLA/EOMI, conjunctivae clear. NOSE: Normal no drainage EARS:TMS clear with good light reflex. THROAT: Pharynx clear, no exudate. NECK: Supple. No a
[2023-08-13] MEDS: dexAMETHasone SOD PHOS INJ 10 MG/ML 1 ML VIAL IM (08:48)
== END 2023-08-13 08:53 | disposition home or self-care (01) ==
PROVIDERS: Emergency Provider Emergency Medicine; PCP Family Medicine
DX: M25.50 Pain in unspecified joint (principal); T36.8X5A Adverse effect of other systemic antibiotics, initial encounter; J44.9 Chronic obstructive pulmonary disease, unspecified; E78.5 Hyperlipidemia, unspecified; I10 Essential (primary) hypertension; E11.9 Type 2 diabetes mellitus without complications; Z87.891 Personal history of nicotine dependence
CPT/HCPCS: 96372; 99283; J1100

== ENCOUNTER 2023-09-05 01:19 | Day surgery (SDC) | payer MEDICARE, SELFPAY ==
[2023-08-22 13:11] VITALS: BMI 28.2
[2023-09-05 08:29] VITALS: BP 158/73; PULSE 129; RESP 20; TEMP 37.2; O2SAT 94; BMI 28.2
[2023-09-05] MEDS: LACTATED RINGERS 1,000 ML 150 ML IV CONT (08:41)
[2023-09-05 08:44] LABS: Glucose Point of Care 100 mg/dl (65-105)
--- NOTE | 2023-09-05 08:51 | PM.HPGS ---
History of Present Illness History of Present Illness Consent: Risks, benefits, and alternatives have been discussed and questions answered. Patient agrees to proceed with procedure. Chief complaint: Ulcerative proctitis without complications Narrative: Yaneth Duarte is a 67 year old female with ulcerative proctitis diagnosed 2022 still symptomatic with rectal bleeding, elevated calprotectin. Taking oral mesalamine but still not doing well, never been on biologics. Review of Systems Review of Systems: All systems reviewed & are unremarkable except as noted in HPI and below PMFSH Past Medical History Medical History Anxiety Arthritis Bipolar disorder COPD (chronic obstructive pulmonary disease) Depression Esophageal stricture Fecal incontinence Fecal urgency Hepatic steatosis Hepatomegaly High risk medication use History of emphysema Hyperlipidemia Hypertension Mucus in stool Nasal septal perforation Obesity Obstructive sleep apnea Post-menopausal Psychiatric care Tongue, fissured Type 2 diabetes mellitus Ulcerative proctitis Vitamin D deficiency Surgical History Surgical History History of bilateral knee replacement History of section History of hysterectomy History of tonsillectomy Family History Family History Other Renal cell cancer Social History Social History Smoking packs per day: 1 Smoking cigarettes per day: 20.0 Years smoked: 34 Smoking pack-years: 34.00 Smoking status: Former smoker Tobacco type: cigarettes Smoking end date: 02/20/05 Additional smoking assessment comments: Still vapes, no nicotine Alcohol intake: never Substance use: never Substance use type: does not use Do You Feel Safe in your Home?: Yes Lack of Transportation: No Lack of Food: Never True Current Housing: I Have Housing Concerned About Future Housing: No Difficulty Paying Gas/Electric Bills: No Difficulty Paying for Meds: No Currently Unemployed: No Education: High School Diploma/GED Difficulty w/ Childcare or Family Care: No Living arrangements: with family Gender identity (if verbalized by the patient): Female Spiritual care concerns: No Meds Home Medications and Allergies Home Medications Medication Instructions Recorded Confirmed Type atorvastatin 40 mg tablet (Lipitor) 40 mg PO DAILY 12/04/19 09/05/23 History metoprolol succinate 50 mg 50 mg PO DAILY 12/04/19 09/05/23 History tablet,extended release 24 hr oxycodone-acetaminophen 10 mg-325 1 tablet PO DAILY PRN Pain 09/09/21 09/05/23 History mg tablet flash glucose sensor (FreeStyle #2 ea 12/21/21 09/05/23 Rx Hoang 2 Sensor kit) semaglutide 2 mg/dose (8 mg/3 mL) 2 mg (0.75 mL) subcut WEEKLY 90 10/27/22 09/05/23 Rx subcutaneous pen injector (OzStylistpick) days #9 mL blood-glucose sensor (Dexcom G7 #9 ea 11/10/22 09/05/23 Rx Sensor device) pen needle, diabetic 32 gauge x #180 ea 04/13/23 09/05/23 Rx (BD Mer 2nd Gen Pen Needle) alprazolam 2 mg tablet 2 mg PO TID PRN Anxiety 06/02/23 09/05/23 History aripiprazole 30 mg tablet (Abilify) 30 mg PO HS PRN Insomnia 06/02/23 09/05/23 History dapagliflozin propanediol 10 mg 5 mg PO DAILY 06/02/23 09/05/23 History tablet (Farxiga) desvenlafaxine succinate 100 mg 100 mg PO DAILY 06/02/23 09/05/23 History tablet,extended release 24 hr (Pristiq) meloxicam 15 mg tablet 15 mg PO DAILY 06/02/23 09/05/23 History mesalamine 1.2 gram tablet,delayed 1.2 g PO DAILY 06/22/23 09/05/23 History release hydrocortisone 2.5 % topical cream 1 applic topical BID PRN itching 08/17/23 09/05/23 Rx #30 grams Allergies Allergy/AdvReac Type Severity Reaction Status Date / Time codeine Allergy Intermediate I
--- NOTE | 2023-09-05 08:55 | WPDANESEPPF ---
Anes - Initial Pre Proc Eval Procedure: Operation Date: 09/05/23 11:30 Proposed Procedures p Flexible Sigmoidoscopy - Puneet Schmidt MD Date/Time: 09/05/23 08:55 Surgeon: Puneet Schmidt MD Pre Op Diagnosis: Ulcerative proctitis without complications Patient Data Age: 67 Gender: F Height: 1.7 m Weight: 81.8 kg Last Vital Signs Temp 99 F 09/05/23 08:29 Pulse 129 H 09/05/23 08:29 Resp 20 09/05/23 08:29 BP 158/73 H 09/05/23 08:29 Pulse Ox 94 09/05/23 08:29 O2 Del Method Room Air 09/05/23 08:29 Allergies Allergy/AdvReac Type Severity Reaction Status Date / Time codeine Allergy Intermediate Itching Verified 09/05/23 08:28 sulfamethoxazole Allergy Joint Pain Verified 09/05/23 08:28 [From Bactrim] triamcinolone Allergy Joint Pain Verified 09/05/23 08:28 trimethoprim [From Bactrim] Allergy Joint Pain Verified 09/05/23 08:28 Home Medications Medication Instructions Recorded Confirmed Type atorvastatin 40 mg tablet (Lipitor) 40 mg PO DAILY 12/04/19 09/05/23 History metoprolol succinate 50 mg 50 mg PO DAILY 12/04/19 09/05/23 History tablet,extended release 24 hr oxycodone-acetaminophen 10 mg-325 1 tablet PO DAILY PRN Pain 09/09/21 09/05/23 History mg tablet flash glucose sensor (FreeStyle #2 ea 12/21/21 09/05/23 Rx Hoang 2 Sensor kit) semaglutide 2 mg/dose (8 mg/3 mL) 2 mg (0.75 mL) subcut WEEKLY 90 10/27/22 09/05/23 Rx subcutaneous pen injector (Ozempic) days #9 mL blood-glucose sensor (Dexcom G7 #9 ea 11/10/22 09/05/23 Rx Sensor device) pen needle, diabetic 32 gauge x #180 ea 04/13/23 09/05/23 Rx /32 (BD Mer 2nd Gen Pen Needle) alprazolam 2 mg tablet 2 mg PO TID PRN Anxiety 06/02/23 09/05/23 History aripiprazole 30 mg tablet (Abilify) 30 mg PO HS PRN Insomnia 06/02/23 09/05/23 History dapagliflozin propanediol 10 mg 5 mg PO DAILY 06/02/23 09/05/23 History tablet (Farxiga) desvenlafaxine succinate 100 mg 100 mg PO DAILY 06/02/23 09/05/23 History tablet,extended release 24 hr (Pristiq) meloxicam 15 mg tablet 15 mg PO DAILY 06/02/23 09/05/23 History mesalamine 1.2 gram tablet,delayed 1.2 g PO DAILY 06/22/23 09/05/23 History release hydrocortisone 2.5 % topical cream 1 applic topical BID PRN itching 08/17/23 09/05/23 Rx #30 grams Laboratory Tests 09/05/23 08:34 POC Capillary Glucose 100 mg/dl (65-105) Patient hx anesthesia problems: none Family hx anesthesia problems: none Results Review: All pre-operative results and documents have been reviewed as part of the pre-operative evaluation. [facility] Past Medical History Medical History Anxiety Arthritis Bipolar disorder COPD (chronic obstructive pulmonary disease) Depression Esophageal stricture Fecal incontinence Fecal urgency Hepatic steatosis Hepatomegaly High risk medication use History of emphysema Hyperlipidemia Hypertension Mucus in stool Nasal septal perforation Obesity Obstructive sleep apnea Post-menopausal Psychiatric care Tongue, fissured Type 2 diabetes mellitus Ulcerative proctitis Vitamin D deficiency Surgical History Surgical History History of bilateral knee replacement History of section History of hysterectomy History of tonsillectomy Family History Family History Other Renal cell cancer Social History Social History Smoking packs per day: 1 Smoking cigarettes per day: 20.0 Years smoked: 34 Smoking pack-years: 34.00 Smoking status: Former smoker Tobacco type: cigarettes Smoking end date: 02/20/05 Additional smoking assessment comments: Still vapes, no nicotine Alcohol intake: never Substance use: never Substance use type: does not use
--- NOTE | 2023-09-05 08:59 | SUR.PREOP ---
Heart rate of [address] Tong. Patient did not take metoprolol.
[2023-09-05 09:12] VITALS: BP 119/70; PULSE 113; RESP 20; O2SAT 93
[2023-09-05 09:22] VITALS: BP 118/71; PULSE 106; RESP 20; O2SAT 96
[2023-09-05 09:32] VITALS: BP 125/69; PULSE 109; RESP 20; O2SAT 94
[2023-09-05 09:37] LABS: Glucose Point of Care 80 mg/dl (65-105)
== END 2023-09-05 09:42 | disposition home or self-care (01) ==
PROVIDERS: PCP Family Medicine; Referring Provider Nurse Practitioner; Visit Provider Internal Medicine Gastroenterology
PROC: 0DJD8ZZ Inspection of Lower Intestinal Tract, Via Natural or Artificial Opening Endoscopic (ICD-10-PCS; CPT 45330; principal; 2023-09-05 11:30)
DX: K51.20 Ulcerative (chronic) proctitis without complications (principal); K63.5 Polyp of colon; J44.9 Chronic obstructive pulmonary disease, unspecified; I10 Essential (primary) hypertension; E78.5 Hyperlipidemia, unspecified; E11.9 Type 2 diabetes mellitus without complications; G47.33 Obstructive sleep apnea (adult) (pediatric); E55.9 Vitamin D deficiency, unspecified; F41.9 Anxiety disorder, unspecified; K76.0 Fatty (change of) liver, not elsewhere classified; F31.9 Bipolar disorder, unspecified; Z87.891 Personal history of nicotine dependence; Z79.85 Long-term (current) use of injectable non-insulin antidiabetic drugs; Z79.84 Long term (current) use of oral hypoglycemic drugs
CPT/HCPCS: 45338; 82948; 88305; J2704; J7120

== ENCOUNTER 2023-09-06 17:24 | Outpatient (CLI) | payer MEDICARE, SELFPAY ==
[2023-09-06 19:18] LABS: Hepatitis B Surface Antigen Negative (Negative)
[2023-09-06 19:35] LABS: Hepatitis B Surface Anti Res Negative
[2023-09-08 08:23] LABS: Hepatitis B Core Ab Total NON-REACTIVE (NON-REACTIVE)
[2023-09-08 12:57] LABS: NIL 0.08 IU/mL; Quantiferon TB Plus, 1T NEGATIVE (NEGATIVE); TB1-NIL 0.06 IU/mL; TB2-NIL 0.03 IU/mL
== END 2023-09-06 17:25 | disposition home or self-care (01) ==
PROVIDERS: PCP Family Medicine; Visit Provider Internal Medicine Gastroenterology
DX: K51.20 Ulcerative (chronic) proctitis without complications (principal); Z79.60 Long term (current) use of unspecified immunomodulators and immunosuppressants
CPT/HCPCS: 36415; 86480; 86704; 86706; 87340

== ENCOUNTER 2024-02-09 03:57 | Inpatient (IN) | payer MEDICARE, SELFPAY ==
[2024-02-09] VITALS (15 sets, daily range): BP systolic 105–148; BP diastolic 59–93; PULSE 100–117; RESP 16–21; TEMP 36.4–37.1; O2SAT 88–100
--- NOTE | ~2024-02-09 | CT_ITS ---
CT of the Abdomen and Pelvis: Indication: Diarrhea Technique: 2.5 mm axial scans were obtained through the abdomen and pelvis following intravenous adm inistration of 100 cc of Omnipaque 350. Dose reduction technique was used on this scan by utilizing a utomated exposure control and iterative reconstruction technique. The dose-length product (DLP) was 1 240.65 mGy-cm. Findings: Scans through the lung bases demonstrates 7 mm right upper lobe pulmonary nodule (axial im age 11).. The liver, pancreas, gallbladder, adrenals and kidneys are within normal limits. Probable mild spleno megaly. 1.6 cm hypodense splenic mass present posteriorly, nonspecific (axial image 72). There are at herosclerotic calcifications of the aorta. No retroperitoneal lymphadenopathy. Possible mild wall thickening of the distal rectum. There are mildly enlarged perirectal lymph nodes, nonspecific. No bowel obstruction. No abscess. Images through the pelvis were performed. Urinary bladder unremarkable. Status post hysterectomy. No pelvic mass. No ascites. Impression: Suspected bowel wall thickening of the distal rectum with mildly enlarged perirectal lymph nodes. Fin dings could reflect infectious/inflammatory colitis. Rectal neoplasm of a potential alternative consi deration. Correlate clinically. Mild splenomegaly with 1.6 cm nonspecific hypodense splenic mass. 7 mm right upper lobe pulmonary nodule. This is stable as compared to prior chest CT dated 06/02/2023, but is indeterminate overall. Consider additional follow-up CT scan in 6-12 months. Reviewed, dictated and finalized at [facility]. STORAGE Impression: Suspected bowel wall thickening of the distal rectum with mildly enlarged perir ectal lymph nodes. Findings could reflect infectious/inflammatory colitis. Rect al neoplasm of a potential alternative consideration. Correlate clinically. Mild splenomegaly with 1.6 cm nonspecific hypodense splenic mass. 7 mm right upper lobe pulmonary nodule. This is stable as compared to prior [facility] CT dated 06/02/2023, but is indeterminate overall. Consider additional follow -up CT scan in 6-12 months.
--- NOTE | ~2024-02-09 | CT_ITS ---
Non-contrast Head CT History: Altered mental status COMPARISON: 06/02/2023 Technique: Axial non-contrast imaging of the brain was performed. Dose reduction technique was used on this scan by utilizing automated exposure control and iterative reconstruction technique. The dose -length product (DLP) was 681.00 mGy-cm. Findings: There is no evidence of intracranial hemorrhage, mass lesion, or acute infarct. Brain par enchyma appears normal. The ventricles and subarachnoid spaces are normal in size. The calvarium ap pears normal. The visualized paranasal sinuses and mastoid air cells are clear. Impression: No significant abnormality seen. Reviewed, dictated and finalized at location . TH [employer]OL TESTER Impression: No significant abnormality seen.
--- NOTE | ~2024-02-09 | XR_ITS ---
Portable chest x-ray Comparison: 06/02/2023 Clinical History: Altered mental status Findings: There is central congestive change and mild central pulmonary edema. Cardiomediastinal si lhouette is stable. Bones and soft tissues are unremarkable. Impression: Central congestive change and mild central pulmonary edema. Reviewed, dictated and finalized at [facility]. E PAINTER Impression: Central congestive change and mild central pulmonary edema.
--- NOTE | ~2024-02-09 | CT_ITS ---
Clinical Indication: Hypoxia CT Scan of the Chest with Contrast: Technique: Contiguous sections were acquired throughout the chest after intravenous administration of 100 cc of Omnipaque 350. Dose reduction technique was used on this scan by utilizing automated expos ure control and iterative reconstruction technique. The dose-length product (DLP) was 664.48 mGy-cm. COMPARISON: 06/02/2023 Findings: There is no evidence of any significant mediastinal, hilar or axillary lymphadenopathy. There is no f illing defect in the pulmonary arterial tree to suggest pulmonary embolus. There is no evidence of ao rtic dissection or aneurysm. Cardiomegaly noted. There is no evidence of pleural or pericardial effusion. Bilateral areas of bullous or cystic change are somewhat decreased from prior exam. There is probable mild generalized hypoventilatory change, either due to atelectatic change and/or suboptimal inspirat ory effort. Images through the upper abdomen reveal probable partially imaged splenomegaly. Impression: No evidence of pulmonary embolus, aortic dissection, or aortic aneurysm. Findings compatible with suboptimal inspiratory effort and/or mild atelectatic change. Decreased cyst ic/bullous change in the upper lobes. Reviewed, dictated and finalized at location . [facility] [place] Impression: No evidence of pulmonary embolus, aortic dissection, or aortic aneurysm. Findings compatible with suboptimal inspiratory effort and/or mild atelectatic change. Decreased cystic/bullous change in the upper lobes.
--- NOTE | 2024-02-09 04:02 | ECG_ITS ---
Test Date: 2024-02-09 04:09:19 Measurements Intervals [place] Rate: 112 P: -3 ME: 180 QRS: -28 QRSD: 89 T: 26 QT: 332 QTc: 453 Interpretive Statements SINUS TACHYCARDIA BORDERLINE LEFT AXIS DEVIATION [QRS AXIS < -20] No previous ECG available for comparison Electronically Signed On 02-09-2024 12:20:24 [employer]IOR [employer] ADMINISTRATOR by Tomy Odonnell M.D.
[2024-02-09 04:35] LABS: Alveolar/Arterial O2 Gradient 54.7 mmHg; Base Excess ABG -1.2 mEq/l (+/-2.0); Fractional Inspired Oxygen 21 %; HCO3 ABG 23.5 mEq/l (22.0-26.0); Oxygen Content ABG 15.8 %vol (16.0-22.0); PCO2 ABG 39.4 mmHg (35.0-45.0); PO2 FiO2 Ratio Arterial Blood 2.28 %; Total Hemoglobin 13.9 g/dL (12.0-18.0); pH ABG 7.394 (7.350-7.450)
[2024-02-09 04:36] LABS: PO2 ABG 47.9 mmHg (80.0-100.0)
[2024-02-09 04:37] LABS: Device ROOM AIR; Oxygen Saturation ABG 83.6 % (95.0-100.0); Oxyhemoglobin 81.1 % THb (90.0-100.0); Site Drawn RIGHT BRACHIAL
[2024-02-09 04:39] LABS: Basophils Percent Auto 0.3 % (0.2-1.2); Eosinophils Percent Auto 0.3 % (0-4.4); Hematocrit 42.2 % (37.0-47.0); Hemoglobin 13.6 g/dL (12.0-15.0); Immature Granulocyte Absolute 0.03 K/mm3 (0.00-0.031); Immature Granulocyte Percent A 0.3 % (0-0.5); Lymphocytes Absolute Auto 2.65 K/mm3 (0.9-3.2); Lymphocytes Percent Auto 30.2 % (18.3-44.2); Mean Corpuscular HGB Conc 32.2 g/dl (32-36); Mean Corpuscular Hemoglobin 28.2 pg (26-34); Mean Corpuscular Volume 87.6 fl (80-100); Mean Platelet Volume 10.6 fl (7.4-10.4); Monocytes Absolute Auto 0.7 K/mm3 (0.1-0.6); Monocytes Percent Auto 8.1 % (2.6-8.5); Neutrophils Absolute Auto 5.3 K/mm3 (1.3-6.7); Neutrophils Percent Auto 60.8 % (45.5-73.1); Platelet Count Result 161 k/mm3 (150-375); Red Blood Count 4.82 M/mm3 (4.2-5.4); Red Cell Distribution Width 16.3 % (11.5-14.5); White Blood Count 8.8 K/mm3 (4.5-10.0)
[2024-02-09] MEDS: SODIUM CHLORIDE 0.9% IV 3,000 ML 999 ML IV CONT (04:39)
[2024-02-09 04:45] LABS: Add Urine Microscopic? YES; Appearance Urine Clear (Clear); Bacteria Urine None Seen /hpf; Bilirubin Urine Negative (Negative); Blood Urine Negative (Negative); Color Urine Yellow (Yellow); Glucose Urine UA 3+ mg/dL (Negative); Ketones Urine Negative (Negative); Leukocyte Esterase Ur Negative LEU/UL (Negative); Nitrate Urine Negative (Negative); Protein Urine Trace mg/dL (Negative); RBC Urine 0-2 /hpf (0-2); Specific Grav Ur 1.022 (1.001-1.035); Squamous Epithelial Cell Urine None Seen /hpf (Few); Urobilinogen Urine 0.2 mg/dL (<2.0); WBC Urine 0-5 /hpf (0-3)
[2024-02-09 04:47] LABS: Ethanol < 10 mg/dL (<10)
[2024-02-09 04:48] LABS: Alanine Aminotransferase 21 U/L (6-35); Albumin Level 4.2 g/dL (3.5-5.1); Alkaline Phosphatase 87 U/L (38-126); Anion Gap 8 mmol/L (4-12); Aspartate Amino Transferase 31 U/L (14-36); Bilirubin,Total 0.8 mg/dL (0.2-1.3); Blood Urea Nitrogen 19 mg/dL (7-17); Calcium 9.5 mg/dL (8.4-10.2); Carbon Dioxide 26 mmol/L (22-30); Chloride 101 mmol/L (98-107); Creatine Kinase 141 U/L (30-135); Estimated CRCL calculation 64 ml/min; Estimated Glomerular Filt Rate > 60; Glucose 129 mg/dL (65-110); Lipase 105 U/L (23-300); Magnesium 1.9 mg/dL (1.6-2.3); Phosphorus 3.6 mg/dL (2.5-4.5); Potassium 4.2 mmol/L (3.4-5.0); Sodium 135 mmol/L (137-145)
[2024-02-09 04:49] LABS: INR 1.1; Lactic Acid Reflex 1.6 mmol/L (0.7-2.0); Prothrombin Time 14.5 Seconds (11.1-14.7)
[2024-02-09 04:50] LABS: Partial Thromboplastin Time 37.9 Seconds (22.3-36.8)
[2024-02-09 04:55] LABS: Amphetamine Screen Urine Positive (Negative); Barbiturate Screen Urine Negative (Negative); Benzodiazepines Screen Urine Positive (Negative); Cannabinoid Screen Urine Negative (Negative); Cocaine Screen Urine Negative (Negative); Methadone Screen Urine Negative (Negative); Opiate Screen Urine Negative (Negative); Phencyclidine Screen Urine Negative (Negative)
[2024-02-09 05:03] LABS: NT Pro B Type Natriuretic Pept 6700 pg/mL (19.9-100); Troponin I 0.329 ng/mL (0.000-0.034)
[2024-02-09 05:13] LABS: Influenza A QL RT-PCR Negative (Negative); Influenza B QL RT-PCR Negative (Negative); RSV RNA, RT-PCR Negative (Negative); SARS-CoV-2 RNA PCR Negative (Negative)
--- NOTE | 2024-02-09 06:32 | ED.GENADULT ---
HPI - General Adult General Chief complaint: Nausea/Vomiting/Diarrhea Stated complaint: AMS, GEN WEAKNESS Time Seen by Provider: 02/09/24 04:02 History of Present Illness HPI narrative: This is a 68-year-old female presenting ED for altered mental status. the patient states she woke up around 230 was feeling very weak. She did use the restrooms her tried to get her to the bathroom but she had diarrhea everywhere and that her too weak to get her back into bed. EMS was called and she was brought to the hospital. Per EMS her says she has been having diarrhea for the last 2 days. She has been more weak and confused than usual. At this time the patient's only complaint is weakness. She is denying fevers chills chest pain difficulty breathing abdominal pain or urinary symptoms. Related Data Home Medications ?Medication ?Instructions ?Recorded ?Confirmed ?Last Taken ?Type atorvastatin 40 mg tablet (Lipitor) 40 mg PO DAILY 12/04/19 01/23/24 06/29/22 History metoprolol succinate 50 mg 50 mg PO DAILY 12/04/19 01/23/24 06/29/22 History tablet,extended release 24 hr aripiprazole 30 mg tablet (Abilify) 30 mg PO HS PRN Insomnia 06/02/23 01/23/24 Unknown History dapagliflozin propanediol 10 mg 5 mg PO DAILY 06/02/23 01/23/24 Unknown History tablet (Farxiga) desvenlafaxine succinate 100 mg 100 mg PO DAILY 06/02/23 01/23/24 Unknown History tablet,extended release 24 hr (Pristiq) meloxicam 15 mg tablet 15 mg PO DAILY 06/02/23 01/23/24 Unknown History Allergies Allergy/AdvReac Type Severity Reaction Status Date / Time codeine Allergy Intermediate Itching Verified 01/23/24 08:41 sulfamethoxazole (From Allergy Joint Pain Verified 01/23/24 08:41 Bactrim) triamcinolone Allergy Joint Pain Verified 01/23/24 08:41 trimethoprim (From Bactrim) Allergy Joint Pain Verified 01/23/24 08:41 PMFSH Past Medical History Medical History Long-term use of immunosuppressant medication Vitamin D deficiency Obesity Mucus in stool Fecal urgency High risk medication use Hepatic steatosis Obstructive sleep apnea Esophageal stricture Ulcerative proctitis Hepatomegaly Fecal incontinence Hypertension Post-menopausal Type 2 diabetes mellitus Tongue, fissured Hyperlipidemia Psychiatric care Nasal septal perforation Anxiety Depression Bipolar disorder Arthritis History of emphysema COPD (chronic obstructive pulmonary disease) Surgical History Surgical History History of bilateral knee replacement History of section History of hysterectomy History of tonsillectomy Family History Family History Other Renal cell cancer Social History Social History Smoking packs per day: 1 Smoking cigarettes per day: 20.0 Years smoked: 34 Smoking pack-years: 34.00 Smoking status: Former smoker Tobacco type: cigarettes Smoking end date: 02/20/05 Additional smoking assessment comments: Still vapes, no nicotine Alcohol intake: never Substance use: never Substance use type: does not use Do You Feel Safe in your Home?: Yes Lack of Transportation: No Lack of Food: Never True Current Housing: I Have Housing Concerned About Future Housing: No Difficulty Paying Gas/Electric Bills: No Difficulty Paying for Meds: No Currently Unemployed: No Education: High School Diploma/GED Difficulty w/ Childcare or Family Care: No Living arrangements: with family Gender identity (if verbalized by the patient): Female Spiritual care concerns: No Exam Narrative: APPEARANCE: Patient appears drowsy Head: atraumatic. EYES: EOMI, NOSE: Atraumatic NECK: Trachea midline RESPIRATORY: No increased rate of breathing, clear to auscultation CARDIOVASCULAR: tachycardic, no peripheral edema ABDOMINAL: Non-distended soft nontender MUSCULOSKELETAl: No obvious deformities NEURO: Alert. Moving 4/4 extremities SKIN:: Warm, dry. Normal color PSYCHIATRIC: Normal affect Course Vital Signs Vital signs: Vital Signs Temperature 98.8 F 02/09/24 04:32 Pulse Rate 117 H 02/09/24 04:32 Respiratory Rate 21 H 02/09/24 04:32 Pulse Oximetry 91 02/09/24 04:32 Oxygen Delivery Room Air 02/09/24 04:32 Temperature 98.8 F 02/09/24 04:32 Pulse Rate 104 H 02/09/24 05:57 Respiratory Rate 17 02/09/24 05:57 Blood Pressure 132/59 L 02/09/24 05:57 Pulse Oximetry 99 02/09/24 05:57 Oxygen Delivery Room Air 02/09/24 04:32 Medical Decision Making [facility] Narrative Medical decision making narrative: -Course: 68-year-old female presenting with altered mental status after multiple episodes of diarrhea. On arrival patient was tachycardic she was mildly hypoxic - 88% on RA. Placed on 2 L of oxygen. Given 3 L of normal saline for suspected dehydration. CT abdomen pelvis showed thickening of the rectum patient has history of ulcer colitis. No white count. No fevers. normal lactic. Will hold abx at this time. Her troponin came back at 0.329. The patient does not have any chest pain. No ischemic changes on EKG. Review of the EMR shows that on previous admission she has had elevated troponin and had been cleared by Cardiology. Likely demand ischemia. Will continue to monitor. Also her BNP is elevated at 6700 and she had some fluid on chest x-ray. Echo from 06/13 showed normal EF and grade 1 diastolic failure, No pulm HTN. She received 3 L of fluid and clinically her condition has improved which doesn't fit for a CHF picture. CT PE ordered to evaluate for pulmonary embolism. If that is negative its possible her hypoxia was due to a combination of her decreased mental status and [place]. Patient signed out to the oncoming physician pending CT PE. -DDX includes but is not limited to: viral syndrome, colitis, dehydration, sepsis -Independent interpretation of studies: white count of 8.8, lactic 1.6. kidney function baseline. C. Diff Pending. UDS positive for benzos and amphetamine which are prescribed medications. CT head unremarkable. CT abdomen pelvis showed wall thickening in the rectum. Patient has history of ulcerative colitis. Independent EKG interpretation: Rhythm [sinus], Rate [112], [place] -[normal], [place] -[normal], QRS [narrow], QTC [normal], T waves -[negative for concerning inversions], ST Segments - [Negative for concerning elevations] Final interpretations: Sinus tachycardia Vital Signs Vital Signs: Vital Signs Temperature 98.8 F 02/09/24 04:32 Pulse Rate 117 H 02/09/24 04:32 Respiratory Rate 21 H 02/09/24 04:32 Pulse Oximetry 91 02/09/24 04:32 Oxygen Delivery Room Air 02/09/24 04:32 Temperature 98.8 F 02/09/24 04:32 Pulse Rate 104 H 02/09/24 05:57 Respiratory Rate 17 02/09/24 05:57 Blood Pressure 132/59 L 02/09/24 05:57 Pulse Oximetry 99 02/09/24 05:57 Oxygen Delivery Room Air 02/09/24 04:32 Lab Data 02/09/24 04:28 02/09/24 04:28 Labs: Lab Results 02/09/24 Range/Units 04:28 WBC 8.8 (4.5-10.0) K/mm3 RBC 4.82 (4.2-5.4) M/mm3 Hgb 13.6 (12.0-15.0) g/dL Hct 42.2 (37.0-47.0) % MCV 87.6 (80-100) fl MCH 28.2 (26-34) pg MCHC 32.2 (32-36) g/dl RDW 16.3 H (11.5-14.5) % Plt Count 161 (150-375) k/mm3 MPV 10.6 H (7.4-10.4) fl Immature Gran % (Auto) 0.3 (0-0.5) % Neut % (Auto) 60.8 (45.5-73.1) % Lymph % (Auto) 30.2 (18.3-44.2) % [place] % (Auto) 8.1 (2.6-8.5) % Eos % (Auto) 0.3 (0-4.4) % Baso % (Auto) 0.3 (0.2-1.2) % Lymph # (Auto) 2.65 (0.9-3.2) K/mm3 [place] # (Auto) 0.7 H (0.1-0.6) K/mm3 Eos # (Auto) 0.0 (0-0.3) K/mm3 Baso # (Auto) 0.0 (0.0-0.1) K/mm3 Abs Immat Gran (auto) 0.03 (0.00-0.031) K/mm3 Absolute Neuts (auto) 5.3 (1.3-6.7) K/mm3 Absolute Nucleated RBC 0.000 (0.0-0.012) K/mm3 Nucleated RBC % 0.0 (0.0-0.2) % PT 14.5 (11.1-14.7) Seconds INR 1.1 APTT 37.9 H (22.3-36.8) Seconds Sodium 135 L (137-145) mmol/L Potassium 4.2 (3.4-5.0) mmol/L Chloride 101 (98-107) mmol/L Carbon Dioxide 26 (22-30) mmol/L Anion Gap 8 (4-12) mmol/L BUN 19 H (7-17) mg/dL Creatinine 0.70 (0.7-1.0) mg/dL Estim Creat Clear Calc 64 ml/min Estimated GFR > 60 (59 - ) Glucose 129 H (65-110) mg/dL Lactic Acid 1.6 (0.7-2.0) mmol/L Calcium 9.5 (8.4-10.2) mg/dL Phosphorus 3.6 (2.5-4.5) mg/dL Magnesium 1.9 (1.6-2.3) mg/dL Total Bilirubin 0.8 (0.2-1.3) mg/dL AST 31 (14-36) U/L ALT 21 (6-35) U/L Alkaline Phosphatase 87 (38-126) U/L Total Creatine Kinase 141 H (30-135) U/L Troponin I 0.329 H* (0.000-0.034) ng/mL NT-Pro-B Natriuret Pep 6700 H (19.9-100) pg/mL Total Protein 8.0 (6.3-8.2) g/dL Albumin 4.2 (3.5-5.1) g/dL Lipase 105 (23-300) U/L TSH (Reflex) 1.260 (0.465-4.68) uIU/mL Urine Color Yellow (Yellow) Urine Appearance Clear (Clear) Urine pH 5.0 (5.0-9.0) Ur Specific [place] 1.022 (1.001-1.035) Urine Protein Trace (Negative) mg/dL Urine Glucose (UA) 3+ H (Negative) mg/dL Urine Ketones Negative (Negative) mg/dL Ur Blood (Man) Negative (Negative) Urine Nitrate Negative (Negative) Urine Bilirubin Negative (Negative) Urine Urobilinogen 0.2 (<2.0) mg/dL Leukocyte Esterase Rfl Negative (Negative) SYMONE/UL Urine RBC 0-2 (0-2) /hpf Urine WBC 0-5 (0-3) /hpf Ur Squamous Epith Cells None seen (Few) /hpf Urine Bacteria None seen /hpf Urine Casts 3-5 Urine Opiates Screen Negative (Negative) Urine Methadone Screen Negative (Negative) Ur Barbiturates Screen Negative (Negative) Ur Phencyclidine Scrn Negative (Negative) Ur Amphetamine Screen Positive A (Negative) U Benzodiazepines Scrn Positive A (Negative) Urine Cocaine Screen Negative (Negative) U Cannabinoids Screen Negative (Negative) Ethyl Alcohol < 10 (<10) mg/dL Influenza A (RT-PCR) Negative (Negative) Influenza B (RT-PCR) Negative (Negative) RSV (RT-PCR) Negative (Negative) SARS-CoV-2 RNA (RT-PCR) Negative (Negative) ABG Data ABG results: 02/09/24 04:27 Puncture Site Right brachial ABG pH 7.394 ABG pCO2 39.4 ABG pO2 47.9 L* ABG PO2/FiO2 Ratio 2.28 ABG HCO3 23.5 ABG O2 Saturation 83.6 L* ABG O2 Content 15.8 L ABG Base Excess -1.2 A-a Gradient 54.7 Oxyhemoglobin 81.1 L* Total Hemoglobin 13.9 O2 Delivery Device Room air O2 Liters/Min 0.0 FiO2 21 Discharge Plan Discharge Clinical Impression: Acute dehydration, Diarrhea, Obstructive sleep apnea Patient Language: Slovak Prescriptions: No Action atorvastatin [Lipitor] 40 mg tablet 40 mg PO DAILY metoprolol succinate 50 mg tablet extended release 24 hr 50 mg PO DAILY meloxicam 15 mg tablet 15 mg PO DAILY aripiprazole [Abilify] 30 mg Tablet 30 mg PO HS PRN (Reason: Insomnia) desvenlafaxine succinate [Pristiq] 100 mg Tablet Extended Release 24 Hr 100 mg PO DAILY Rx Instructions: Bottle unopened dapagliflozin propanediol [Farxiga] 10 mg tablet 5 mg PO DAILY (DME) [employer] G7 Sensor Device See Rx Instructions .Route Qty: 9 3RF Rx Instructions: As directed (DME) pen needle, diabetic [BD Ultra-Fine Mer Pen Needle] 32 gauge x 5/32 needle See Rx Instructions .ROUTE .MEDSUPPLY Qty: 100 0RF Rx Instructions: use four to six times daily Ozempic 2 mg/dose (8 mg/3 mL) pen injector 2 mg subcut WEEKLY Qty: 9 1RF Rx Instructions: Pt takes on Saturdays mesalamine 1,000 mg suppository See Rx Instructions .ROUTE .COMPLEX Qty: 60 2RF Dose Instruction: INSERT 1 SUPPOSITORY RECTALLY TWICE DAILY DIRECTED Rx Instructions: INSERT 1 SUPPOSITORY RECTALLY TWICE DAILY DIRECTED Follow-up/Referrals: Marni,Laura Sharp MD [Primary Care Provider] -
[2024-02-09 08:55] LABS: Troponin I 0.275 ng/mL (0.000-0.034)
[2024-02-09] MEDS: ENOXAPARIN 80 MG/0.8 ML SYRINGE 78 MG SUB-Q (10:32)
--- NOTE | 2024-02-09 13:17 | P.HP_ITS ---
H&P: HPI History of Present Illness Date/Time: 02/09/24 13:17 Chief Complaint: Altered mental status, diarrhea and weakness Narrative: 68-year-old female history of hyperlipidemia, bipolar and anxiety presenting to the hospital for altered mental status, weakness and diarrhea. Patient states that she woke up in the middle night feeling very weak and had difficulties getting to the bathroom had fecal incontinence. Her helped her back in the bed and had difficulties so EMS was called. Patient is A&O 3-4. Per the the patient has been having diarrhea for the last 2 days. In the ED ABG a shows hypoxia, patient has slight hyponatremia on labs, BNP of 6700, elevated troponin at 0.39, 2 hour at 0.27, UA is negative, respiratory panel negative. Patient's chest CTA is negative for acute pulmonary embolism. Chest x-ray with pulmonary edema. CT of the abdomen and pelvis show Suspected bowel wall thickening of the distal rectum with mildly enlarged perirectal lymph nodes. Findings could reflect infectious/inflammatory colitis. Rectal neoplasm of a potential alternative consideration. Correlate clinically. Mild splenomegaly with 1.6 cm nonspecific hypodense splenic mass. 7 mm right upper lobe pulmonary nodule. This is stable as compared to prior chest CT dated 06/02/2023, but is indeterminate overall. Consider additional follow-up CT scan in 6-12 months. Patient's urinary toxicology was positive for benzos and amphetamines patient has prescriptions for Xanax and Adderall, she states that she last took Xanax 2 days ago. Review of Systems Review of Systems: 12 systems were reviewed and are negativ e except for as per HPI. [facility] Past Medical History Medical History Long-term use of immunosuppressant medication Vitamin D deficiency Obesity Mucus in stool Fecal urgency High risk medication use Hepatic steatosis Obstructive sleep apnea Esophageal stricture Ulcerative proctitis Hepatomegaly Fecal incontinence Hypertension Post-menopausal Type 2 diabetes mellitus Tongue, fissured Hyperlipidemia Psychiatric care Nasal septal perforation Anxiety Depression Bipolar disorder Arthritis History of emphysema COPD (chronic obstructive pulmonary disease) Surgical History Surgical History History of bilateral knee replacement History of section History of hysterectomy History of tonsillectomy Family History Family History Other Renal cell cancer Social History Social History Smoking packs per day: 1 Smoking cigarettes per day: 20.0 Years smoked: 34 Smoking pack-years: 34.00 Smoking status: Former smoker Tobacco type: cigarettes Smoking end date: 02/20/05 Additional smoking assessment comments: Still vapes, no nicotine Alcohol intake: never Substance use: unknown Substance use type: does not use Do You Feel Safe in your Home?: Yes Lack of Transportation: No Lack of Food: Never True Current Housing: I Have Housing Concerned About Future Housing: No Difficulty Paying Gas/Electric Bills: No Difficulty Paying for Meds: No Currently Unemployed: No Education: Associate Degree Difficulty w/ Childcare or Family Care: No Living arrangements: with family Gender identity (if verbalized by the patient): Female Spiritual care concerns: No Meds Home Medications and Allergies Home Medications ?Medication ?Instructions ?Recorded ?Confirmed ?Type atorvastatin 40 mg tablet (Lipitor) 40 mg PO DAILY 12/04/19 02/09/24 History metoprolol succinate 50 mg 50 mg PO DAILY 12/04/19 02/09/24 History tablet,extended release 24 hr blood-glucose sensor ([employer] G7 #9 ea 11/10/22 02/09/24 Rx Sensor device) aripiprazole 30 mg tablet (Abilify) 30 mg PO HS PRN Insomnia 06/02/23 02/09/24 History dapagliflozin propanediol 10 mg 5 mg PO DAILY 06/02/23 02/09/24 History tablet (Farxiga) desvenlafaxine succinate 100 mg 100 mg PO DAILY 06/02/23 02/09/24 History tablet,extended release 24 hr (Pristiq) meloxicam 15 mg tablet 15 mg PO DAILY 06/02/23 02/09/24 History pen needle, diabetic 32 gauge x #100 ea 09/27/23 02/09/24 Rx (BD Ultra-Fine Mer Pen Needle) semaglutide 2 mg/dose (8 mg/3 mL) 2 mg (0.75 mL) subcut WEEKLY #9 mL 11/30/23 02/09/24 Rx subcutaneous pen injector (Ozempic) mesalamine 1,000 mg rectal See Rx Instructions .Route 01/15/24 02/09/24 Rx suppository .COMPLEX #60 ea acetaminophen 500 mg capsule 1,000 mg PO Q4-6H PRN mild pain 02/09/24 02/09/24 History (scale score 1-4) cyclobenzaprine 10 mg tablet 10 mg PO TID PRN Pain 02/09/24 02/09/24 History dextroamphetamine-amphetamine 20 20 mg PO TID 02/09/24 02/09/24 History mg tablet ustekinumab 45 mg/0.5 mL 45 mg subcut DAILY 02/09/24 02/09/24 History subcutaneous solution (Stelara) Allergies Allergy/AdvReac Type Severity Reaction Status Date / Time codeine Allergy Intermediate Itching Verified 01/23/24 08:41 sulfamethoxazole (From Allergy Joint Pain Verified 01/23/24 08:41 Bactrim) triamcinolone Allergy Joint Pain Verified 01/23/24 08:41 trimethoprim (From Bactrim) Allergy Joint Pain Verified 01/23/24 08:41 Vital Signs Vital Signs - 24 hr 02/09/24 04:32 02/09/24 04:45 02/09/24 05:57 Temperature 98.8 F Pulse Rate 117 H 117 H 104 H Respiratory Rate 21 H 16 17 Blood Pressure 115/70 132/59 L Pulse Oximetry 91 88 L 99 Oxygen Delivery Room Air 02/09/24 07:00 02/09/24 08:00 02/09/24 09:00 Temperature 97.6 F 97.7 F 97.7 F Pulse Rate 105 H 103 H 107 H Respiratory Rate 16 18 16 Blood Pressure 105/93 H 120/60 143/61 H Pulse Oximetry 100 98 99 Oxygen Delivery 02/09/24 10:53 Temperature 97.6 F Pulse Rate 102 H Respiratory Rate 18 Blood Pressure 142/78 H Pulse Oximetry 99 Oxygen Delivery Exam Narrative: General: well appearing, appears stated age. HEENT: normocephalic, atraumatic. Mucous membranes dry. EOMI, PERRLA, bilateral sclera anicteric, no conjunctival injection. Neck supple without JVD, lymphadenopathy, or bruit. Respiratory: clear to ascultation bilaterally. No rales/rhonic/wheezes. Cardiovascular: Regular rate and rhythm, normal S1-S2 upon ascultation. No murmurs, rubs, or clicks. PMI is nondisplaced, capillary refill less than 3 second. Abdomen: Soft, round, no pulsatile masses, nondistended and nontender. No rebound, no guarding. No CVA tenderness, no hepatosplenomegaly. Bowel sounds present to all four quadrants. No high pitch or tinkling sounds, resonant to percussion. Extremities: No cyanosis, clubbing, or edema present. Pulses are palpable 2/2. Active ROM to all four extremities. Neuro: Alert and orientated x 3- 4. PERRLA. Cranial nerves 2-12 intact without focal deficit. Skin: Warm, dry, and intact, without rash, erythema, or lesion. Psych: pleasant, cooperative, normal speech, normal affect, no hallucinations, no dysarthia H&P: Results Labs Labs: Short CBC 02/09/24 Range/Units 04:28 WBC 8.8 (4.5-10.0) K/mm3 Hgb 13.6 (12.0-15.0) g/dL Hct 42.2 (37.0-47.0) % Plt Count 161 (150-375) k/mm3 BMP 02/09/24 04:28 Sodium 135 L Potassium 4.2 Chloride 101 Carbon Dioxide 26 BUN 19 H Creatinine 0.70 Glucose 129 H Calcium 9.5 Cardiac Enzymes 02/09/24 02/09/24 Range/Units 04:28 08:10 Total Creatine Kinase 141 H (30-135) U/L Troponin I 0.329 H* 0.275 H* (0.000-0.034) ng/mL Liver Function 02/09/24 Range/Units 04:28 Total Bilirubin 0.8 (0.2-1.3) mg/dL AST 31 (14-36) U/L ALT 21 (6-35) U/L Alkaline Phosphatase 87 (38-126) U/L Albumin 4.2 (3.5-5.1) g/dL Urine 02/09/24 Range/Units 04:28 Urine Color Yellow (Yellow) Urine Appearance Clear (Clear) Urine pH 5.0 (5.0-9.0) Ur Specific [place] 1.022 (1.001-1.035) Urine Protein Trace (Negative) mg/dL Urine Glucose (UA) 3+ H (Negative) mg/dL Assessment and Plan Assessment and plan (1) Altered mental status: Code(s): R41.82 - Altered mental status, unspecified Status: Acute Assessment and Plan: Patient was hypoxic on ABG Head CT negative for acute findings U tox positive for amphetamines and benzos patient on Adderall and Xanax No major electrolyte balances Blood cultures pending Hold medications that altered mental status (2) Pulmonary edema: Code(s): J81.1 - Chronic pulmonary edema Status: Acute Assessment and Plan: No known history of CHF IV Lasix x1 Echocardiogram pending patient may need Cardiology consult (3) Diarrhea: Code(s): R19.7 - Diarrhea, unspecified Status: Acute Assessment and Plan: C diff test pending Given 1 L bolus in ED No IV fluids given due to pulmonary edema (4) Colitis: Code(s): K52.9 - Noninfective gastroenteritis and colitis, unspecified Status: Acute Assessment and Plan: Suspected bowel wall thickening of the distal rectum with mildly enlarged perirectal lymph nodes. Findings could reflect infectious/inflammatory colitis. Rectal neoplasm of a potential alternative consideration. Correlate clinically. IV Zosyn GI consulted (5) Weakness: Code(s): R53.1 - Weakness Status: Acute Assessment and Plan: PT and OT (6) Elevated troponin: Code(s): R79.89 - Other specified abnormal findings of blood chemistry Status: Acute Assessment and Plan: Could be due to hypoxia versus other (7) CHF (congestive heart failure): Code(s): I50.9 - Heart failure, unspecified Status: Acute Assessment and Plan: Currently dehydrated (8) Adverse effect of amphetamines, initial encounter: Code(s): T43.625A - Adverse effect of amphetamines, initial encounter Status: Acute Assessment and Plan: Could be cause of altered mental status (9) Splenomegaly: Code(s): R16.1 - Splenomegaly, not elsewhere classified Status: Acute Assessment and Plan: Could be due to colitis (10) Pulmonary nodule: Code(s): R91.1 - Solitary pulmonary nodule Status: Acute Assessment and Plan: Follow-up in 6-12 months outpatient Quality VTE Prophylaxis VTE prophylaxis: mechanical ordered and pharmacologic ordered Hospitalist [facility] Advance Care Plan I have confirmed that the patient's Advanced Care Plan is present, code status is documented, or surrogate decision maker is listed in patient medical record.: Yes Medication Reconciliation I have utilized all available resources to obtain, update and review the patients current medications (includes all prescriptions, OTC, herbals, rupert abis, and nutritional supplements).: Yes
--- NOTE | 2024-02-09 19:43 | ADMGEN ---
This patient, Yaneth Duarte, was admitted to Virtual [facility] IMU-2. Patient/family oriented to hospital policies and general routines including ID bracelet, bed and alarms, visiting hours, pain management, procedures, bathroom and other care routines, personal items, smoking policy, room service/diet, and visiting hours. Information on how to activate the Rapid Response Team has been discussed. Patient/Family are encouraged to report perceived risks to care and to ask questions if they do not understand what they are told or what they should do.
[2024-02-10] VITALS (11 sets, daily range): BP systolic 117–148; BP diastolic 46–60; PULSE 85–106; RESP 16–20; TEMP 36.3–36.9; O2SAT 96–100
--- NOTE | 2024-02-10 | ECHO_ITS ---
Patient Info Name: Yaneth Duarte Age: 68 years : 1955 Gender: Female Ht: 67 in Wt: 172 lbs BSA: 1.94 m2 HR: 103 bpm BP: 148 / 60 mmHg Heart Rhythm: Sinus Rhythm Technical Quality: Good Exam Date: 02/10/2024 1:16 PM Exam Location: Echo Lab Patient Status: Inpatient Admit Date: 02/09/2024 Staff Ordering Physician: Maryellen Salvador APRN [employer]: Martina Jenkins RDCS Attending Provider: Melany Alvarez APRN Referring Physician: Madeleine FLORES; Exam Type: CA echo doppler color flow Study Info Complete two-dimensional, color flow and Doppler transthoracic echocardiogram is performed. Summary 1. Complete two-dimensional, color flow and Doppler transthoracic echocardiogram is performed. 2. Left ventricular systolic function is normal, estimated at 60-65%. 3. There is mildly increased left ventricular wall thickness. 4. The left ventricular diastolic function is grade I diastolic dysfunction. 5. There is mild pulmonic regurgitation. Left Ventricle Left ventricular chamber dimension is normal. Left ventricular systolic function is normal, estimated at 60-65%. There is mildly increased left ventricular wall thickness. Left ventricular septal wall motion is normal. The left ventricular diastolic function is grade I diastolic dysfunction. Right Ventricle Right ventricular chamber dimension is normal. Right ventricular systolic function is normal. Left Atria Left atrial chamber dimension is normal. Right Atria Right atrial chamber dimension is normal. Atrial Septum Intact interatrial septum visualized by color flow imaging. Aortic Valve The aortic valve is trileaflet. There is no aortic valve sclerosis. There is no aortic valve stenosis. There is no aortic valve regurgitation. Pulmonic Valve The pulmonic valve is normal. There is no pulmonic valve stenosis. There is mild pulmonic regurgitation. Mitral Valve The mitral valve has normal leaflets. There is no mitral valve stenosis. There is no mitral valve regurgitation. Tricuspid Valve The tricuspid valve leaflets are normal. There is no significant tricuspid valve stenosis. There is no tricuspid valve regurgitation. No pulmonary hypertension, estimated pulmonary arterial systolic pressure is 31 mmHg. Pericardium/Pleural The pericardium appears normal. There is no pericardial effusion. Inferior Vena Cava Normal inferior vena cava with >50% collapse upon inspiration consistent with normal right atrial pressure, 5 mmHg. Aorta The aortic root size at the sinus of Valsalva is normal. The prox ascending aorta size is normal. Left Ventricular Outflow Tract Name Value Normal LVOT 2D LVOT Diameter 2.2 cm LVOT Doppler LVOT Peak Gradient 3 mmHg LVOT Mean Gradient 2 mmHg LVOT VTI 19 cm LVOT VTI/AV VTI Ratio 1.0 LVOT Stroke Volume 71 ml LVOT CO 7.8 l/min LVOT CI 4.0 l/min/m2 Pulmonic Valve Name Value Normal PV Doppler PV Peak Gradient 4 mmHg PV Regurgitation Doppler NM Peak End Diastolic Velocity 134 cm/s Mitral Valve Name Value Normal MV Doppler MV Peak Gradient 3 mmHg MV Mean Gradient 1 mmHg MV Decel [place] 649 cm/s2 MV PHT 24 ms MV Area (PHT) 9.1 cm2 4.0-5.0 MV Area (Cont Eq VTI) 4.5 cm2 MV Diastolic Function MV E Peak Velocity 54 cm/s MV A Peak Velocity 73 cm/s MV E/A 0.7 MV Decel Time 83 ms MV Annular TDI MV E/e' (Septal) 11.4 <=8.0 MV E/e' (Lateral) 9.6 <=8.0 MV E/e' (Average) 10.5 Tricuspid Valve Name Value Normal TV Regurgitation Doppler TR Peak Velocity 255 cm/s TR Peak Gradient 26 mmHg Estimated PAP/RSVP RA Pressure 5 mmHg <=5 PA Systolic Pressure 31 mmHg <36 RV Systolic Pressure 31 mmHg <36 Aortic Valve Name Value Normal AV Doppler AV Peak Velocity 114 cm/s AV Peak Gradient 5 mmHg AV Mean Gradient 3 mmHg AV VTI 20 cm AV Area (Cont Eq VTI) 3.7 cm2 >=3.0 AV Area (Cont Eq [place]) 3.0 cm2 AV Regurgitation 2D LVOT Area 3.8 cm2 Ventricles Name Value Normal LV Dimensions 2D/MM IVS Diastolic Thickness (2D) 1.0 cm 0.6-1.0 LVID Diastole (2D) 4.5 cm 3.8-5.2 LVIW Diastolic Thickness (2D) 0.9 cm 0.6-0.9 LVID Systole (2D) 3.2 cm 2.2-3.5 LVOT Diameter 2.2 cm LV Mass (2D Cubed) 139.18 g 67.00-162.00 LV Mass Index (2D Cubed) 72 g/m2 43-95 Relative Wall Thickness (2D) 0.39 LV Fractional Shortening/Ejection Fraction 2D/MM LV Fractional Shortening (2D) 30 % 27-45 LV EF (2D Teicholz) 58 % 54-74 LV Diastolic Volume (4C MOD) 87 ml LV EF (4C MOD) 61 % LV Diastolic Volume (2C MOD) 102 ml LV EF (2C MOD) 61 % LV Diastolic Volume (BP MOD) 95 ml 46-106 LV Diastolic Volume Index (BP MOD) 49 ml/m2 29-61 LV Systolic Volume (BP MOD) 39 ml 14-42 LV Systolic Volume Index (BP MOD) 20 ml/m2 8-24 LV EF (BP MOD) 59 % 54-74 LV Diastolic Length (4C) 7.2 cm LV Systolic Length (4C) 5.7 cm LV Stroke Volume (4C MOD) 53 ml Atria Name Value Normal LA Dimensions LA Volume (4C A-L) 44 ml LA Volume (BP A-L) 46 ml RA Dimensions RA Area (4C) 13.1 cm2 <=18.0 Report Signatures
[2024-02-10] MEDS: FUROSEMIDE INJ 40 MG/4 ML VIAL IV PUSH ×3 (01:06→18:50)
[2024-02-10] MEDS: PIPERACILLN/TAZ 3.375GM/NS50ML 3.375 GM/50 ML BAG IVPB ×4 (01:06→18:50)
[2024-02-10 01:15] LABS: Glucose Point of Care 96 mg/dl (65-105)
[2024-02-10 01:23] LABS: Glucose Point of Care 95 mg/dl (65-105)
[2024-02-10 06:02] LABS: Hematocrit 37.5 % (37.0-47.0); Hemoglobin 11.8 g/dL (12.0-15.0); Mean Corpuscular HGB Conc 31.5 g/dl (32-36); Mean Corpuscular Hemoglobin 27.4 pg (26-34); Mean Corpuscular Volume 87.2 fl (80-100); Mean Platelet Volume 10.6 fl (7.4-10.4); Platelet Count Result 151 k/mm3 (150-375); Red Cell Distribution Width 16.4 % (11.5-14.5); White Blood Count 5.3 K/mm3 (4.5-10.0)
[2024-02-10 06:13] LABS: Anion Gap 5 mmol/L (4-12); Blood Urea Nitrogen 8 mg/dL (7-17); Calcium 9.2 mg/dL (8.4-10.2); Carbon Dioxide 29 mmol/L (22-30); Chloride 104 mmol/L (98-107); Estimated CRCL calculation 86 ml/min; Estimated Glomerular Filt Rate > 60; Glucose 120 mg/dL (65-110); Potassium 3.4 mmol/L (3.4-5.0); Sodium 138 mmol/L (137-145)
[2024-02-10] MEDS: ENOXAPARIN 40 MG/0.4 ML SYRINGE SUB-Q (08:55)
[2024-02-10] MEDS: EMPAGLIFLOZIN 10 MG TABLET BY MOUTH (08:56)
[2024-02-10] MEDS: ATORVASTATIN 40 MG TABLET PO (08:56)
[2024-02-10] MEDS: DESVENLAFAXINE SUCCINATE 50 MG TAB.ER.24H 100 MG PO (08:56)
[2024-02-10] MEDS: METOPROLOL SUCCINATE EXT REL 50 MG TABCR PO (08:57)
--- NOTE | 2024-02-10 09:20 | P.PNIM_ITS ---
Progress Note: A&P Assessment and Plan (1) Acute and chronic respiratory failure with hypoxia: Code(s): J96.21 - Acute and chronic respiratory failure with hypoxia Status: Acute Assessment and Plan: patient presented with hypoxia altered mental status multifocal to noncompliance with CPAP and CHF exacerbation possible polypharmacy * 80% on room air * supplemental oxygen wean as tolerated to maintain 92% * started treatment for CHF IV lasix BID echo pending * encourage compliance with her CPAP and resumed CPAP * currently holding sedative medications (2) Acute on chronic diastolic (congestive) heart failure: Code(s): I50.33 - Acute on chronic diastolic (congestive) heart failure Status: Acute Assessment and Plan: patient was admitted back in May of 2023 found to have grade 1 diastolic dysfunction with LVEF 50-60% appear to be new onset BNP then was around 1100 currently patient's BNP is 6700 and checks x-ray showing pulmonary edema * BNP 6700 * cardiology consulted to evaluate if patient needs ischemic workup * continued patient's metoprolol, Farxiga, and statin * IV Lasix b.i.d. * monitor renal function during diuresis * previous echocardiogram results 06/13: grade 1 diastolic dysfunction LVEF 50- 60% * echocardiogram pending * EKG STach * chest x-ray Pulmonary edema * Lipid panel, TSH, liver function test. * Optimize Rebel inhibitors, beta-blockers, ARNI * Daily weight. (3) Altered mental status: Code(s): R41.82 - Altered mental status, unspecified Status: Acute Assessment and Plan: Could be secondary to polypharmacy with multiple sedative medications vs hypoxia secondary to CHINO and CPAP noncompliance and CHF exacerbation * Holding Xanax, flexeril * Resumed home CPAP (4) Diarrhea: Code(s): R19.7 - Diarrhea, unspecified Status: Acute Assessment and Plan: Patient reported multiple episodes diarrhea home * abdominal CT showing wall thickening of the distal rectum with enlarged perirectal lymph nodes could be colitis but rectal neoplasm can not be ruled out however 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 * patient takes mesalamine rectal suppository resumed * C diff sample ordered * GI consulted * may need colonoscopy over may need to wait till infectious process resolved * Zosyn IV (5) Obstructive sleep apnea: Code(s): G47.33 - Obstructive sleep apnea (adult) (pediatric) Status: Acute Assessment and Plan: Patient reports noncompliance with CPAP * resumed patient's home CPAP (6) Non-ST elevation (NSTEMI) myocardial infarction: Code(s): I21.4 - Non-ST elevation (NSTEMI) myocardial infarction Status: Acute Assessment and Plan: patient had elevated troponins back in May of 2023 also appeared to be CHF exacerbation as well as CHINO likely ischemic demand * Troponin trending down 0.329/0.275/ 3rd pending * last echocardiogram showed diastolic dysfunction LVEF 50-60 * BNP 6700 * cardiology consulted for further evaluation as to whether patient may need ischemic workup * EKG reviewed showing sinus tachycardia rate's low 100's (7) Bipolar disorder: Code(s): F31.9 - Bipolar disorder, unspecified Status: Acute Assessment and Plan: patient used to see a psychiatrist outpatient but now primary care physician continues to prescribe her mood stabilizers * Adderall, Xanax, Abilify (8) Type 2 diabetes mellitus: Code(s): E11.9 - Type 2 diabetes mellitus without complications Status: Acute Assessment and Plan: patient on semaglutide at home as well as [facility] Diabetes * Accu-Cheks a.c. HS * sliding scale insulin * hold oral diabetic medications * semaglutide non formulated patient will bring from home currently holding * Hemoglobin A1c goal less than 7 pending * lipid panel pending * Optimize Rebel inhibitors and statins. * Watch for hypoglycemia/hypoglycemic protocol ordered Plan Code status: Full code per patient DVT prophylaxis: Lovenox Stress ulcer prophylaxis: Protonix 40 daily PT/OT notes: patient ambulatory Disposition: patient was admitted to the medical unit for further evaluation and treatment of acute respiratory failure with hypoxia and altered mental status she was also found to have elevated troponins CHF exacerbation will continue with current treatment and have Cardiology evaluate for any need for ischemic workup. Plan will likely be to discharge back to home when medically stable. Time Spent With Patient Time with patient: 25 - 35 minutes Subjective Date/time seen: 02/10/24 09:20 Interval history: Patient is a 68-year-old female who was admitted for acute on chronic respiratory failure with hypoxia possibly secondary to CHF exacerbation also had elevated troponins but currently trending down could be secondary to ischemic demand. Patient to be continued with CHF exacerbation treatment and possible colitis versus rectal neoplasm. 02/10/24: Assumed Care Patient reports improved SOB and is alert and oriented answering all questions appropriately during assessment. She does report bilateral should pain which is chronic no new acute injury was scheduled for MRI Sunday 02/11. She was transitioned back to room air. Troponins trending down but likely will need ischemic workup. Review of Systems Review of Systems: All systems reviewed & are unremarkable except as noted in HPI and below Exam Narrative: * GENERAL: Alert and oriented x 3. No acute distress. * EYES: PERRLA. * HEENT: Moist mucous membranes. * LUNGS: Clear to auscultation bilaterally. No accessory muscle use. * CARDIOVASCULAR: Regular rate and rhythm. No murmur. No JVD. S1-S2 * ABDOMEN: Soft, non tenderness and non-distended. No palpable masses. * EXTREMITIES: No edema. Pain with movement to bilateral shoulders * SKIN: No rashes or lesions. Skin warm, dry. * NEUROLOGIC: No focal neurological deficits. CN II-XII grossly intact * PSYCHIATRIC: Appropriate mood and affect. Good judgement and insight. Objective Data Vital Signs Vital Signs: Vital Signs - 24 hr 02/09/24 10:53 02/09/24 11:30 02/09/24 12:30 Temperature 97.6 F 97.6 F 97.8 F Pulse Rate 102 H 103 H 101 H Respiratory Rate 18 18 16 Blood Pressure 142/78 H 146/80 H 146/88 H Pulse Oximetry 99 97 98 02/09/24 13:30 02/09/24 14:30 02/09/24 15:30 Temperature 97.7 F 97.8 F 97.8 F Pulse Rate 106 H 102 H 103 H Respiratory Rate 18 18 18 Blood Pressure 148/90 H 146/84 H 138/88 Pulse Oximetry 98 97 96 02/09/24 18:08 02/09/24 19:01 02/09/24 23:21 Temperature 97.8 F 97.7 F 98.1 F Pulse Rate 104 H 100 100 Respiratory Rate 16 18 20 Blood Pressure 136/84 128/70 135/59 L Pulse Oximetry 97 98 100 02/10/24 00:00 02/10/24 04:00 02/10/24 06:00 Temperature 98.1 F Pulse Rate 102 H 98 103 H Respiratory Rate 20 Blood Pressure 148/60 H Pulse Oximetry 100 02/10/24 08:57 Temperature Pulse Rate 103 H Respiratory Rate Blood Pressure Pulse Oximetry Intake/Output Intake/Output: Intake & Output 02/07/24 02/08/24 02/09/24 02/10/24 23:59 23:59 23:59 23:59 Intake Total 3000 800 Balance 3000 800 Meds/Results Medications: Active Medications Generic Name Dose Route Start Last Admin Trade Name Freq PRN Reason Stop Dose Admin Acetaminophen 650 mg 02/09/24 13:48 Acetaminophen 325 Mg Tablet PO Q4H PRN Mild Pain (1-3) or Fever Hydrocodone Bitart/Acetaminophen 1 tab 02/09/24 13:48 Hydrocodone/Acetaminophen (*Crx) 5-325 Mg Tablet PO Q4H PRN Moderate Pain (4-6) Atorvastatin Calcium 40 mg 02/10/24 09:00 02/10/24 08:56 Atorvastatin 40 Mg Tablet PO 40 mg DAILY INGRID Administration Desvenlafaxine Succinate 100 mg 02/10/24 09:00 02/10/24 08:56 Desvenlafaxine Succinate 50 Mg Tab.Er.24h PO 100 mg DAILY INGRID Administration Docusate Sodium 100 mg 02/09/24 13:48 Docusate Sodium 100 Mg Capsule PO BID PRN Constipation Empagliflozin 10 mg 02/10/24 09:00 02/10/24 08:56 Empagliflozin 10 Mg Tablet BY MOUTH 10 mg DAILY INGRID Administration Enoxaparin Sodium 40 mg 02/10/24 09:00 02/10/24 08:55 Enoxaparin 40 Mg/0.4 Ml Syringe SUB-Q 40 mg DAILY INGRID Administration Piperacillin/Tazobactam/Dextrose 3.375 gm in 50 mls @ 100 mls/hr 02/10/24 00:00 02/10/24 06:15 Zosyn 3.375 Gm/Ns 50 Ml IVPB Infused Q6HR INGRID Infusion Metoprolol Succinate 50 mg 02/10/24 09:00 02/10/24 08:57 Metoprolol Succinate Ext Rel 50 Mg Tabcr PO 50 mg DAILY INGRID Administration Miscellaneous Information 0 each 02/09/24 00:01 Dextroamphetamine/Amphetamine 20mg Nonform Can Pt Bring From Home??? XX 03/10/24 00:00 CLARIFY INGRID Non-Formulary Medication 20 mg 02/10/24 09:00 Dextroamphetamine-Amphetamine PO 03/11/24 08:59 TID INGRID Ondansetron HCl 4 mg 02/09/24 09:57 Ondansetron Inj 4 Mg/2 Ml Vial IV PUSH Q4H PRN Nausea Perflutren Lipid Microsphere 0 ml 02/09/24 23:50 Perflutren Lipid Microspheres 1.5 Ml Vial Diluted To 10 Ml Total Volume IV PUSH 02/12/24 23:50 ONCE PRN adequate visualization Protocol Radiology Results: ITS Impressions Head CT 02/09/24 05:28 Impression: No significant abnormality seen. Abdomen/Pelvis CT 02/09/24 05:31 Impression: Suspected bowel wall thickening of the distal rectum with mildly enlarged p erirectal lymph nodes. Findings could reflect infectious/inflammatory colitis. Rectal neoplasm of a potential alternative consideration. Correlate clinically. Mild splenomegaly with 1.6 cm nonspecific hypodense splenic mass. 7 mm right upper lobe pulmonary nodule. This is stable as compared to prior chest CT dated 06/02/2023, but is indeterminate overall. Consider additional follow-up CT scan in 6-12 months. Chest X-Ray 02/09/24 06:04 Impression: Central congestive change and mild central pulmonary edema. Chest CTA 02/09/24 07:32 Impression: No evidence of pulmonary embolus, aortic dissection, or aortic aneurysm. Findings compatible with suboptimal inspiratory effort and/or mild atelectatic change. Decreased cystic/bullous change in the upper lobes. Labs Labs: Laboratory Results - last 24 hr 02/09/24 02/10/24 02/10/24 22:11 01:19 05:30 WBC 5.3 RBC 4.30 Hgb 11.8 L Hct 37.5 MCV 87.2 MCH 27.4 MCHC 31.5 L RDW 16.4 H Plt Count 151 MPV 10.6 H Sodium 138 Potassium 3.4 Chloride 104 Carbon Dioxide 29 Anion Gap 5 BUN 8 D Creatinine 0.50 L Estim Creat Clear Calc 86 Estimated GFR > 60 Glucose 120 H POC Capillary Glucose 96 95 Calcium 9.2 Quality VTE Prophylaxis VTE prophylaxis: pharmacologic ordered -Patient's previous records reviewed on admission -ER notes reviewed in detail on admission -discussed all findings and current treatment plan with patient/Family/POA -Consultations reviewed for recommendations -Patient's disposition for safe discharge discussed with rn case mgr Dictation performed by [employer] direct speech recognition software, therefore fire production operator variants and typographical errors may occur. Hospitalist MIPS Advance Care Plan I have confirmed that the patient's Advanced Care Plan is present, code status is documented, or surrogate decision maker is listed in patient medical record.: Yes Medication Reconciliation I have utilized all available resources to obtain, update and review the patients current medications (includes all prescriptions, OTC, herbals, cannabis, and nutritional supplements).: Yes The patient is not eligible for med reconciliation; the patient is in a emergent medical situation where delaying treatment would jeopardize the patients health.: No
[2024-02-10 10:27] LABS: Troponin I 0.142 ng/mL (0.000-0.034)
[2024-02-10 10:39] LABS: Cholesterol 106 mg/dL (0-200); HDL Direct 23 mg/dL; Magnesium 1.5 mg/dL (1.6-2.3); Triglycerides 204 mg/dL (<150)
[2024-02-10 10:50] LABS: LDL Cholesterol Direct 41 mg/dL
--- NOTE | 2024-02-10 11:07 | P.CONCA_ITS ---
Assessment and Plan Assessment and plan (1) Acute on chronic diastolic (congestive) heart failure: Code(s): I50.33 - Acute on chronic diastolic (congestive) heart failure Status: Acute (2) Non-ST elevation (NSTEMI) myocardial infarction: Code(s): I21.4 - Non-ST elevation (NSTEMI) myocardial infarction Status: Acute Assessment and Plan: Assessment: 1. Acute on chronic diastolic heart failure; LVEF 55-60% by echo in 05/2023; BNP elevated at 6700 2. NSTEMI with troponins 0.829, 0.075, 0.142; most likely secondary to acute on chronic heart failure versus ischemia given risk factors for CAD including obesity, hypertension, hyperlipidemia, diabetes mellitus 3. Hypertension 4. Hyperlipidemia 5. Morbid obesity 6. Obstructive sleep apnea on CPAP-not using regularly 7. Acute on chronic hypoxic respiratory failure most likely secondary to acute heart failure 8. Altered mental status 9. Hypokalemia with potassium of 3.4 Plan Plan: 1. Diuresis with IV Lasix 40 mg b.i.d. 2. Check ins and outs daily and measured weights daily. Restrict fluid intake to 1.5 L per day 3. Oxygen as needed to keep SaO2 greater than 90%. CPAP at night 4. Check renal function daily 5. Check electrolytes and replace to keep potassium greater than 4 and magnesium greater than 2 6. Can stop trending troponins as they have peaked and are downtrending 7. Plan for right and left heart catheterization on Monday. Keep NPO at midnight 8. Start aspirin 81 mg daily 9. Continue metoprolol, SGLT 2 inhibitor 10. TTE 11. Management of other medical problems per primary team History of Present Illness History of Present Illness Consult date/time: 02/10/24 11:07 Reason For Visit: AMS, CHF exacerbation, elevated troponin Narrative: 68-year-old female with past medical history of diabetes mellitus, obstructive sleep apnea, hypertension, hyperlipidemia, COPD/emphysema, obesity, bipolar disorder, and anxiety was admitted for altered mental status, weakness, and diarrhea. She was noted to have acute on chronic heart failure in addition to aforementioned problems. Cardiology was consulted for heart failure. Patient is accompanied by her and she provides most of the history. She states that she woke up in the middle of the night feeling very weak and had difficulty getting up to the bathroom. She had fecal incontinence. She has diarrhea for the past 2 days. Her had difficulties when he tried to help her back into bed and EMS was called and she was transported to [facility]. She was noted to be hypoxic in the ED with elevated BNP of 6700, elevated troponin 0.39. CT chest was negative for acute PE. She denies any chest pain, shortness of breath. However she is not very active and does not do stairs and does not walk much. She denies any palpitations, dizziness, lightheadedness, presyncope, syncope, or any recent weight gain. She reports bilateral lower extremity swelling. She states that she missed her appointment to reassess CPAP settings. She has not been using her CPAP regularly per her . No premature CAD in the family. She does not smoke. Troponin: 0.329, 0.275, 0.142 EKG: Sinus tachycardia, heart rate 110 TTE: 05/2023: LVEF 55-60%, no significant valvular pathology Chest x-ray: Pulmonary edema CT chest: No evidence of pulmonary embolus, aortic dissection, or aortic aneurysm. Findings compatible with suboptimal inspiratory effort and/or mild atelectatic change. Decreased cystic/bullous change in the upper lobes. CT abdomen and pelvis: Suspected bowel wall thickening of the distal rectum with mildly enlarged perirectal lymph nodes. Findings could reflect infectious/inflammatory colitis. Rectal neoplasm of a potential alternative consideration. Correlate clinically. Mild splenomegaly with 1.6 cm nonspecific hypodense splenic mass. 7 mm right upper lobe pulmonary nodule. This is stable as compared to prior chest CT dated 06/02/2023, but is indeterminate overall. Consider additional follow-up CT scan in 6-12 months. Review of Systems 2 Review of Systems: A complete review of systems was performed and negative other than those mentioned in the [facility] Past Medical History Medical History (Updated 02/10/24 @ 09:29 by Melany Alvarez, CHERRY) Type 2 diabetes mellitus Bipolar disorder Long-term use of immunosuppressant medication Vitamin D deficiency Obesity Mucus in stool Fecal urgency High risk medication use Hepatic steatosis Obstructive sleep apnea Esophageal stricture Ulcerative proctitis Hepatomegaly Fecal incontinence Hypertension Post-menopausal Tongue, fissured Hyperlipidemia Psychiatric care Nasal septal perforation Anxiety Depression Arthritis History of emphysema COPD (chronic obstructive pulmonary disease) Surgical History Surgical History History of bilateral knee replacement History of section History of hysterectomy History of tonsillectomy Family History Family History Other Renal cell cancer Social History Social History Smoking packs per day: 1 Smoking cigarettes per day: 20.0 Years smoked: 34 Smoking pack-years: 34.00 Smoking status: Former smoker Tobacco type: cigarettes Smoking end date: 02/20/05 Additional smoking assessment comments: Still vapes, no nicotine Alcohol intake: never Substance use: unknown Substance use type: does not use Do You Feel Safe in your Home?: Yes Lack of Transportation: No Lack of Food: Never True Current Housing: I Have Housing Concerned About Future Housing: No Difficulty Paying Gas/Electric Bills: No Difficulty Paying for Meds: No Currently Unemployed: No Education: Associate Degree Difficulty w/ Childcare or Family Care: No Living arrangements: with family Gender identity (if verbalized by the patient): Female Spiritual care concerns: No Meds Home Medications and Allergies Home Medications ?Medication ?Instructions ?Recorded ?Confirmed ?Type atorvastatin 40 mg tablet (Lipitor) 40 mg PO DAILY 12/04/19 02/09/24 History metoprolol succinate 50 mg 50 mg PO DAILY 12/04/19 02/09/24 History tablet,extended release 24 hr blood-glucose sensor (Dexcom G7 #9 ea 11/10/22 02/09/24 Rx Sensor device) aripiprazole 30 mg tablet (Abilify) 30 mg PO HS PRN Insomnia 06/02/23 02/09/24 History dapagliflozin propanediol 10 mg 5 mg PO DAILY 06/02/23 02/09/24 History tablet (Farxiga) desvenlafaxine succinate 100 mg 100 mg PO DAILY 06/02/23 02/09/24 History tablet,extended release 24 hr (Pristiq) meloxicam 15 mg tablet 15 mg PO DAILY 06/02/23 02/09/24 History pen needle, diabetic 32 gauge x #100 ea 09/27/23 02/09/24 Rx 5/32 (BD Ultra-Fine Mer Pen Needle) semaglutide 2 mg/dose (8 mg/3 mL) 2 mg (0.75 mL) subcut WEEKLY #9 mL 11/30/23 02/09/24 Rx subcutaneous pen injector (Ozempic) mesalamine 1,000 mg rectal See Rx Instructions .Route 01/15/24 02/09/24 Rx suppository .COMPLEX #60 ea acetaminophen 500 mg capsule 1,000 mg PO Q4-6H PRN mild pain 02/09/24 02/09/24 History (scale score 1-4) cyclobenzaprine 10 mg tablet 10 mg PO TID PRN Pain 02/09/24 02/09/24 History dextroamphetamine-amphetamine 20 20 mg PO TID 02/09/24 02/09/24 History mg tablet ustekinumab 45 mg/0.5 mL 45 mg subcut DAILY 02/09/24 02/09/24 History subcutaneous solution (Stelara) Allergies Allergy/AdvReac Type Severity Reaction Status Date / Time codeine Allergy Intermediate Itching Verified 01/23/24 08:41 sulfamethoxazole (From Allergy Joint Pain Verified 01/23/24 08:41 Bactrim) triamcinolone Allergy Joint Pain Verified 01/23/24 08:41 trimethoprim (From Bactrim) Allergy Joint Pain Verified 01/23/24 08:41 Vital Signs Vital Signs - 24 hr 02/09/24 11:30 02/09/24 12:30 02/09/24 13:30 Temperature 36.4 C 36.6 C 36.5 C Pulse Rate 103 H 101 H 106 H Respiratory Rate 18 16 18 Blood Pressure 146/80 H 146/88 H 148/90 H Pulse Oximetry 97 98 98 02/09/24 14:30 02/09/24 15:30 02/09/24 18:08 Temperature 36.6 C 36.6 C 36.6 C Pulse Rate 102 H 103 H 104 H Respiratory Rate 18 18 16 Blood Pressure 146/84 H 138/88 136/84 Pulse Oximetry 97 96 97 02/09/24 19:01 02/09/24 23:21 02/10/24 00:00 Temperature 36.5 C 36.7 C Pulse Rate 100 100 102 H Respiratory Rate 18 20 Blood Pressure 128/70 135/59 L Pulse Oximetry 98 100 02/10/24 04:00 02/10/24 06:00 02/10/24 08:57 Temperature 36.7 C Pulse Rate 98 103 H 103 H Respiratory Rate 20 Blood Pressure 148/60 H Pulse Oximetry 100 Exam 2 Narrative: General: Alert oriented x3 no acute distress Neck: Supple no JVD Chest: Bilaterally clear to auscultation, no rales or rhonchi Cardiac: S1, S2 plus, regular rate, regular rhythm, no murmurs or rubs Extremities: No peripheral edema, no skin rash Neurologic: Positive into x3, no focal neurological deficits Results Labs and Meds 02/10/24 05:30 02/10/24 05:30 Lab results: Cardiac Enzymes 02/10/24 Range/Units 05:28 Troponin I 0.142 H* (0.000-0.034) ng/mL Lipids 02/10/24 Range/Units 05:28 Triglycerides 204 H (<150) mg/dL Cholesterol 106 (0-200) mg/dL CBC 02/10/24 Range/Units 05:30 WBC 5.3 (4.5-10.0) K/mm3 RBC 4.30 (4.2-5.4) M/mm3 Hgb 11.8 L (12.0-15.0) g/dL Hct 37.5 (37.0-47.0) % Plt Count 151 (150-375) k/mm3 Comprehensive Metabolic Panel 02/10/24 Range/Units 05:30 Sodium 138 (137-145) mmol/L Potassium 3.4 (3.4-5.0) mmol/L Chloride 104 (98-107) mmol/L Carbon Dioxide 29 (22-30) mmol/L BUN 8 D (7-17) mg/dL Creatinine 0.50 L (0.7-1.0) mg/dL Glucose 120 H (65-110) mg/dL Calcium 9.2 (8.4-10.2) mg/dL Intake and Output 02/09/24 02/10/24 02/10/24 23:59 07:59 15:59 Intake Total 800 240 Balance 800 240 Intake: IV 100 Piperacilln/Simeon 3.375GM/Ns50ml 100 3.375 gm In 50 ml @ 100 mls/hr IVPB Q6HR INGRID Rx#:[id number] Oral 700 240 Other: # Unmeasured Voids 1 1
[2024-02-10 11:27] LABS: Hemoglobin A1C 6.7 % (<5.7)
[2024-02-10 12:46] LABS: Glucose Point of Care 100 mg/dl (65-105)
[2024-02-10] MEDS: ACETAMINOPHEN 325 MG TABLET 650 MG PO (15:37)
[2024-02-10] MEDS: MAGNESIUM SULF 2 GM/WATER 50ML 2 GM/50 ML BAG IVPB (15:44)
[2024-02-10] MEDS: POTASSIUM CHLORIDE 20 MEQ ER TABLET 40 MEQ PO (15:45)
--- NOTE | 2024-02-10 16:03 | PCOTNOTE ---
Attempted OT evaluation at 1316, patient was completing echo. Will follow.
--- NOTE | 2024-02-10 16:40 | P.CONGI_ITS ---
Assessment and Plan Assessment and plan (1) 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 Status: Acute Assessment and Plan: she is currently on stelara and has been doing better, some report of diarrhea- if patient has more then check for C diff but property staff accountant did not report any today admitted here for CHF exacerbation with NSTEMI and noted plans for cardiac cath tomorrow no acute GI intervention she will need to continue using stelara as usual and then can follow-up in office will see as needed (2) Diarrhea: Code(s): R19.7 - Diarrhea, unspecified Status: Acute (3) Acute on chronic diastolic (congestive) heart failure: Code(s): I50.33 - Acute on chronic diastolic (congestive) heart failure Status: Acute (4) Non-ST elevation (NSTEMI) myocardial infarction: Code(s): I21.4 - Non-ST elevation (NSTEMI) myocardial infarction Status: Acute (5) Acute and chronic respiratory failure with hypoxia: Code(s): J96.21 - Acute and chronic respiratory failure with hypoxia Status: Acute GI Consult Note Consult date/time: 02/10/24 16:40 Reason for consult: abnormal CT scan of colon, known ulcerative proctitis HPI: Yaneth Duarte is a 68 year old female with known ulcerative proctitis diagnosed 2022 treated with oral mesalamine but repeat sigmoidoscopy 09/12 still active proctitis. She came here yesterday with confusion, weakness, and diarrhea. She was noted to have acute on chronic heart failure, had hard time trying to help her back into bed and EMS was called. She was noted to be hypoxic in the ED with elevated BNP of 6700, elevated troponin 0.39. CT chest was negative for acute PE. Cardiology evaluated patient and plan is for cardiac cath. She was seen in our office recently and started on stelara about 4 months ago, diarrhea has improved and denies abdominal pain. CT scan also showed proctitis. Review of Systems 2 Constitutional: Constitutional: Reports weakness Eyes: Eyes: Denies blurry vision ENT: Reports Normal hearing present Cardiovascular: Cardiovascular: Denies chest pain Respiratory: Respiratory: Reports dyspnea Gastrointestinal: Gastrointestinal: Denies abdominal pain and Reports diarrhea Genitourinary: Genitourinary: Denies urinary urgency Musculoskeletal: Musculoskeletal: Denies neck pain Integumentary/Breasts: Skin/Breast: Denies rash Neurologic: Denies Abnormal speech present Psychiatric: Psychiatric: Reports confusion [facility] Past Medical History Medical History (Updated 02/10/24 @ 09:29 by Melany Alvarez, INSTRUCTIONAL SPECIALIST) Type 2 diabetes mellitus Bipolar disorder Long-term use of immunosuppressant medication Vitamin D deficiency Obesity Mucus in stool Fecal urgency High risk medication use Hepatic steatosis Obstructive sleep apnea Esophageal stricture Ulcerative proctitis Hepatomegaly Fecal incontinence Hypertension Post-menopausal Tongue, fissured Hyperlipidemia Psychiatric care Nasal septal perforation Anxiety Depression Arthritis History of emphysema COPD (chronic obstructive pulmonary disease) Surgical History Surgical History History of bilateral knee replacement History of section History of hysterectomy History of tonsillectomy Family History Family History Other Renal cell cancer Social History Social History Smoking packs per day: 1 Smoking cigarettes per day: 20.0 Years smoked: 34 Smoking pack-years: 34.00 Smoking status: Former smoker Tobacco type: cigarettes Smoking end date: 02/20/05 Additional smoking assessment comments: Still vapes, no nicotine Alcohol intake: never Substance use: unknown Substance use type: does not use Do You Feel Safe in your Home?: Yes Lack of Transportation: No Lack of Food: Never True Current Housing: I Have Housing Concerned About Future Housing: No Difficulty Paying Gas/Electric Bills: No Difficulty Paying for Meds: No Currently Unemployed: No Education: Associate Degree Difficulty w/ Childcare or Family Care: No Living arrangements: with family Gender identity (if verbalized by the patient): Female Spiritual care concerns: No Meds Home Medications and Allergies Home Medications ?Medication ?Instructions ?Recorded ?Confirmed ?Type atorvastatin 40 mg tablet (Lipitor) 40 mg PO DAILY 12/04/19 02/09/24 History metoprolol succinate 50 mg 50 mg PO DAILY 12/04/19 02/09/24 History tablet,extended release 24 hr blood-glucose sensor (Dexcom G7 #9 ea 11/10/22 02/09/24 Rx Sensor device) aripiprazole 30 mg tablet (Abilify) 30 mg PO HS PRN Insomnia 06/02/23 02/09/24 History dapagliflozin propanediol 10 mg 5 mg PO DAILY 06/02/23 02/09/24 History tablet (Farxiga) desvenlafaxine succinate 100 mg 100 mg PO DAILY 06/02/23 02/09/24 History tablet,extended release 24 hr (Pristiq) meloxicam 15 mg tablet 15 mg PO DAILY 06/02/23 02/09/24 History pen needle, diabetic 32 gauge x #100 ea 09/27/23 02/09/24 Rx (BD Ultra-Fine Mer Pen Needle) semaglutide 2 mg/dose (8 mg/3 mL) 2 mg (0.75 mL) subcut WEEKLY #9 mL 11/30/23 02/09/24 Rx subcutaneous pen injector (Ozempic) mesalamine 1,000 mg rectal See Rx Instructions .Route 01/15/24 02/09/24 Rx suppository .COMPLEX #60 ea acetaminophen 500 mg capsule 1,000 mg PO Q4-6H PRN mild pain 02/09/24 02/09/24 History (scale score 1-4) cyclobenzaprine 10 mg tablet 10 mg PO TID PRN Pain 02/09/24 02/09/24 History dextroamphetamine-amphetamine 20 20 mg PO TID 02/09/24 02/09/24 History mg tablet ustekinumab 45 mg/0.5 mL 45 mg subcut DAILY 02/09/24 02/09/24 History subcutaneous solution (Stelara) Allergies Allergy/AdvReac Type Severity Reaction Status Date / Time codeine Allergy Intermediate Itching Verified 01/23/24 08:41 sulfamethoxazole (From Allergy Joint Pain Verified 01/23/24 08:41 Bactrim) triamcinolone Allergy Joint Pain Verified 01/23/24 08:41 trimethoprim (From Bactrim) Allergy Joint Pain Verified 01/23/24 08:41 Vital Signs Vital Signs - 24 hr 02/09/24 18:08 02/09/24 19:01 02/09/24 23:21 Temperature 97.8 F 97.7 F 98.1 F Pulse Rate 104 H 100 100 Respiratory Rate 16 18 20 Blood Pressure 136/84 128/70 135/59 L Pulse Oximetry 97 98 100 Oxygen Delivery 02/10/24 00:00 02/10/24 04:00 02/10/24 06:00 Temperature 98.1 F Pulse Rate 102 H 98 103 H Respiratory Rate 20 Blood Pressure 148/60 H Pulse Oximetry 100 Oxygen Delivery 02/10/24 08:04 02/10/24 08:04 02/10/24 08:57 Temperature Pulse Rate 106 H 103 H Respiratory Rate 20 Blood Pressure Pulse Oximetry 100 Oxygen Delivery Room Air 02/10/24 09:10 02/10/24 14:00 Temperature 97.3 F L Pulse Rate 101 H Respiratory Rate 16 Blood Pressure 117/46 L Pulse Oximetry 96 96 Oxygen Delivery Room Air Exam 2 Const: General: comfortable and no acute distress HENMT: Face/Nose/Sinus: Normal nares present Eyes: General: appearance normal, both eyes and all related structures Neck: Neck: supple Resp: Effort & Inspection: normal respiratory effort Cardio: Rate: regular rate Rhythm: regular rhythm GI: Inspection: non-distended GI Palp: Yes Soft to palpation and No Tenderness to palpation present (GI) Auscultation: normal bowel sounds Skin: General skin exam: normal color Neuro: Speech: normal speech Motor exam (neuro): 5/5 motor strength present throughout Extrem: General: normal to inspection Psych: Mental Status: mental status grossly normal Results Labs 02/10/24 05:30 02/10/24 05:30 Labs: Short CBC 02/10/24 Range/Units 05:30 WBC 5.3 (4.5-10.0) K/mm3 Hgb 11.8 L (12.0-15.0) g/dL Hct 37.5 (37.0-47.0) % Plt Count 151 (150-375) k/mm3 [facility] 02/10/24 05:30 Sodium 138 Potassium 3.4 Chloride 104 Carbon Dioxide 29 BUN 8 D Creatinine 0.50 L Glucose 120 H Calcium 9.2 Cardiac Enzymes 02/10/24 Range/Units 05:28 Troponin I 0.142 H* (0.000-0.034) ng/mL
[2024-02-10 17:05] LABS: Glucose Point of Care 90 mg/dl (65-105)
[2024-02-10 20:16] LABS: Glucose Point of Care 124 mg/dl (65-105)
[2024-02-11] VITALS (10 sets, daily range): BP systolic 116–146; BP diastolic 60–75; PULSE 69–104; RESP 16–20; TEMP 36.4–36.9; O2SAT 94–97
[2024-02-11] MEDS: PIPERACILLN/TAZ 3.375GM/NS50ML 3.375 GM/50 ML BAG IVPB ×2 (00:48→05:36)
[2024-02-11] MEDS: HYDROcodone/acetaminophen (*CRX) 5-325 MG TABLET 1 TAB PO ×4 (03:23→22:27)
[2024-02-11 05:38] LABS: Hematocrit 40.5 % (37.0-47.0); Mean Corpuscular HGB Conc 32.1 g/dl (32-36); Mean Corpuscular Hemoglobin 27.7 pg (26-34); Mean Corpuscular Volume 86.4 fl (80-100); Mean Platelet Volume 10.3 fl (7.4-10.4); Platelet Count Result 208 k/mm3 (150-375); Red Blood Count 4.69 M/mm3 (4.2-5.4); Red Cell Distribution Width 16.2 % (11.5-14.5); White Blood Count 7.6 K/mm3 (4.5-10.0)
[2024-02-11 05:54] LABS: Alanine Aminotransferase 16 U/L (6-35); Alkaline Phosphatase 85 U/L (38-126); Anion Gap 5 mmol/L (4-12); Aspartate Amino Transferase 26 U/L (14-36); Bilirubin,Total 0.9 mg/dL (0.2-1.3); Blood Urea Nitrogen 15 mg/dL (7-17); Calcium 9.5 mg/dL (8.4-10.2); Carbon Dioxide 32 mmol/L (22-30); Chloride 98 mmol/L (98-107); Estimated CRCL calculation 56 ml/min; Estimated Glomerular Filt Rate > 60; Glucose 110 mg/dL (65-110); Magnesium 1.9 mg/dL (1.6-2.3); Potassium 3.5 mmol/L (3.4-5.0); Sodium 135 mmol/L (137-145)
--- NOTE | 2024-02-11 08:24 | P.PNIM_ITS ---
Progress Note: A&P Assessment and Plan (1) Acute and chronic respiratory failure with hypoxia: Code(s): J96.21 - Acute and chronic respiratory failure with hypoxia Status: Acute Assessment and Plan: patient presented with hypoxia altered mental status multifocal to noncompliance with CPAP and CHF exacerbation possible polypharmacy * 80% on room air * supplemental oxygen wean as tolerated to maintain 92% * started treatment for CHF IV lasix BID echo pending * encourage compliance with her CPAP and resumed CPAP * currently holding sedative medications 02/11/24: * Weaned to room air (2) Acute on chronic diastolic (congestive) heart failure: Code(s): I50.33 - Acute on chronic diastolic (congestive) heart failure Status: Acute Assessment and Plan: patient was admitted back in May of 2023 found to have grade 1 diastolic dysfunction with LVEF 50-60% appear to be new onset BNP then was around 1100 currently patient's BNP is 6700 and checks x-ray showing pulmonary edema * BNP 6700 * cardiology consulted to evaluate if patient needs ischemic workup * continued patient's metoprolol, Farxiga, and statin * IV Lasix b.i.d. * monitor renal function during diuresis * previous echocardiogram results 06/13: grade 1 diastolic dysfunction LVEF 50- 60% * echocardiogram pending * EKG STach * chest x-ray Pulmonary edema * Lipid panel, TSH, liver function test. * Optimize Rebel inhibitors, beta-blockers, ARNI * Daily weight. (3) Altered mental status: Code(s): R41.82 - Altered mental status, unspecified Status: Acute Assessment and Plan: Could be secondary to polypharmacy with multiple sedative medications vs hypoxia secondary to CHINO and CPAP noncompliance and CHF exacerbation * Holding Xanax, flexeril * Resumed home CPAP RESOLVED (4) Diarrhea: Code(s): R19.7 - Diarrhea, unspecified Status: Acute Assessment and Plan: Patient reported multiple episodes diarrhea home * abdominal CT showing wall thickening of the distal rectum with enlarged perirectal lymph nodes could be colitis but rectal neoplasm can not be ruled out however 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 * patient takes mesalamine rectal suppository resumed * C diff sample ordered * GI consulted * may need colonoscopy over may need to wait till infectious process resolved * Zosyn IV 02/11/24: * Patient had been started in Stelara injections with GI follows outpatient * D/C mesalamine no longer taking * Stopped IV zosyn (5) 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 Status: Acute Assessment and Plan: SEE ABOVE PLAN #4 (6) Obstructive sleep apnea: Code(s): G47.33 - Obstructive sleep apnea (adult) (pediatric) Status: Acute Assessment and Plan: Patient reports noncompliance with CPAP * resumed patient's home CPAP (7) Non-ST elevation (NSTEMI) myocardial infarction: Code(s): I21.4 - Non-ST elevation (NSTEMI) myocardial infarction Status: Acute Assessment and Plan: patient had elevated troponins back in May of 2023 also appeared to be CHF exacerbation as well as CHINO likely ischemic demand * Troponin trending down 0.329/0.275/ 3rd pending * last echocardiogram showed diastolic dysfunction LVEF 50-60 * BNP 6700 * cardiology consulted for further evaluation as to whether patient may need ischemic workup * EKG reviewed showing sinus tachycardia rate's low 100's 02/11/24: * Cardiology plan for R/L heart cath 02/11 * npo at midnight (8) Bipolar disorder: Code(s): F31.9 - Bipolar disorder, unspecified Status: Acute Assessment and Plan: patient used to see a psychiatrist outpatient but now primary care physician continues to prescribe her mood stabilizers * Adderall, Xanax, Abilify (9) Type 2 diabetes mellitus: Code(s): E11.9 - Type 2 diabetes mellitus without complications Status: Acute Assessment and Plan: patient on semaglutide at home as well as Farxiga Diabetes * Accu-Cheks a.c. HS * sliding scale insulin * hold oral diabetic medications * semaglutide non formulated patient will bring from home currently holding * Hemoglobin A1c goal less than 7 pending * lipid panel pending * Optimize Rebel inhibitors and statins. * Watch for hypoglycemia/hypoglycemic protocol ordered Plan Code status: Full code per patient DVT prophylaxis: Lovenox Stress ulcer prophylaxis: Protonix 40 daily PT/OT notes: patient ambulatory Disposition: patient was admitted to the medical unit for further evaluation and treatment of acute respiratory failure with hypoxia and altered mental status she was also found to have elevated troponins CHF exacerbation will continue with current treatment plan for R/L heart cath tomorrow 02/11. Plan to discharge back to home when medically stable. Time Spent With Patient Time with patient: 15 - 25 minutes Subjective Date/time seen: 02/11/24 08:24 Interval history: Patient is a 68-year-old female who was admitted for acute on chronic respiratory failure with hypoxia possibly secondary to CHF exacerbation also had elevated troponins but currently trending down could be secondary to ischemic demand. Patient to be continued with CHF exacerbation treatment and possible colitis versus rectal neoplasm. 02/11/24: Patient with improvement to SOB on RA, educated on the importance of using her CPAP. Patient denied chest pain or current SOB but did endorse feeling tired all the time and intermittent confusion when she wakes up likely secondary to hypoxia. Review of Systems Review of Systems: 12 systems were reviewed and are negativ e except for as per HPI. All systems reviewed & are unremarkable except as noted in HPI and below Exam Narrative: * GENERAL: Alert and oriented x 3. No acute distress. * EYES: PERRLA. * HEENT: Moist mucous membranes. * LUNGS: Clear to auscultation bilaterally. No accessory muscle use. * CARDIOVASCULAR: Regular rate and rhythm. No murmur. No JVD. S1-S2 * ABDOMEN: Soft, non tenderness and non-distended. No palpable masses. * EXTREMITIES: No edema. Pain with movement to bilateral shoulders * SKIN: No rashes or lesions. Skin warm, dry. * NEUROLOGIC: No focal neurological deficits. CN II-XII grossly intact * PSYCHIATRIC: Appropriate mood and affect. Good judgement and insight. Objective Data Vital Signs Vital Signs: Vital Signs - 24 hr 02/10/24 08:57 02/10/24 09:10 02/10/24 12:05 Temperature Pulse Rate 103 H 89 Respiratory Rate Blood Pressure Pulse Oximetry 96 Oxygen Delivery Room Air 02/10/24 14:00 02/10/24 16:04 02/10/24 20:00 Temperature 97.3 F L Pulse Rate 101 H 90 Respiratory Rate 16 Blood Pressure 117/46 L Pulse Oximetry 96 Oxygen Delivery Room Air 02/10/24 20:00 02/10/24 20:22 02/11/24 00:00 Temperature 98.4 F Pulse Rate 87 85 77 Respiratory Rate 20 Blood Pressure 119/60 Pulse Oximetry 97 Oxygen Delivery 02/11/24 04:00 02/11/24 05:58 02/11/24 08:00 Temperature 98.4 F Pulse Rate 71 82 Respiratory Rate 18 Blood Pressure 146/68 H Pulse Oximetry 97 Oxygen Delivery Room Air Intake/Output Intake/Output: Intake & Output 02/08/24 02/09/24 02/10/24 02/11/24 23:59 23:59 23:59 23:59 Intake Total 3000 2620 550 Balance 3000 2620 550 Meds/Results Medications: Active Medications Generic Name Dose Route Start Last Admin Trade Name Freq PRN Reason Stop Dose Admin Acetaminophen 650 mg 02/09/24 13:48 02/10/24 15:37 Acetaminophen 325 Mg Tablet PO 650 mg Q4H PRN Administration Mild Pain (1-3) or Fever Hydrocodone Bitart/Acetaminophen 1 tab 02/09/24 13:48 02/11/24 03:23 Hydrocodone/Acetaminophen (*Crx) 5-325 Mg Tablet PO 1 tab Q4H PRN Administration Moderate Pain (4-6) Atorvastatin Calcium 40 mg 02/10/24 09:00 02/10/24 08:56 Atorvastatin 40 Mg Tablet PO 40 mg DAILY INGRID Administration Desvenlafaxine Succinate 100 mg 02/10/24 09:00 02/10/24 08:56 Desvenlafaxine Succinate 50 Mg Tab.Er.24h PO 100 mg DAILY INGRID Administration Dextrose 12.5 gm 02/10/24 09:47 Dextrose 50% 25 Gm/50 Ml Syringe IV PUSH PRN PRN Hypoglycemia Protocol Docusate Sodium 100 mg 02/09/24 13:48 Docusate Sodium 100 Mg Capsule PO BID PRN Constipation Empagliflozin 10 mg 02/10/24 09:00 02/10/24 08:56 Empagliflozin 10 Mg Tablet BY MOUTH 10 mg DAILY INGRID Administration Enoxaparin Sodium 40 mg 02/10/24 09:00 02/10/24 08:55 Enoxaparin 40 Mg/0.4 Ml Syringe SUB-Q 40 mg DAILY INGRID Administration Furosemide 40 mg 02/10/24 09:25 02/10/24 18:50 Furosemide Inj 40 Mg/4 Ml Vial IV PUSH 40 mg BID INGRID Administration Glucagon 1 mg 02/10/24 09:47 Glucagon For Inj 1 Mg Vial IM PRN PRN Hypoglycemia Protocol Glucose 15 gm 02/10/24 09:47 Glucose Oral Gel 15 Gm Of Glucse In 37.5 Gm Tube PO PRN PRN Hypoglycemia Protocol Piperacillin/Tazobactam/Dextrose 3.375 gm in 50 mls @ 100 mls/hr 02/10/24 00:00 02/11/24 05:36 Zosyn 3.375 Gm/Ns 50 Ml IVPB 100 mls/hr Q6HR INGRID Administration Dextrose 1,000 mls @ 100 mls/hr 02/10/24 09:47 Dextrose 5% 1,000 Ml IVPB PRN PRN Hypoglycemia Protocol Insulin Aspart 2 - 5 units 02/10/24 12:00 02/10/24 17:41 Insulin Aspart (*Bkc) 100 Units/Ml SUB-Q Not Given TIDWM [facility] Protocol Metoprolol Succinate 50 mg 02/10/24 09:00 02/10/24 08:57 Metoprolol Succinate Ext Rel 50 Mg Tabcr PO 50 mg DAILY INGRID Administration Miscellaneous Information 0 each 02/09/24 00:01 Dextroamphetamine/Amphetamine 20mg Nonform Can Pt Bring From Home??? XX 03/10/24 00:00 CLARIFY [facility] Non-Formulary Medication 20 mg 02/10/24 09:00 Dextroamphetamine-Amphetamine PO 03/11/24 08:59 TID INGRID Ondansetron HCl 4 mg 02/09/24 09:57 Ondansetron Inj 4 Mg/2 Ml Vial IV PUSH Q4H PRN Nausea Perflutren Lipid Microsphere 0 ml 02/09/24 23:50 Perflutren Lipid Microspheres 1.5 Ml Vial Diluted To 10 Ml Total Volume IV PUSH 02/12/24 23:50 ONCE PRN adequate visualization Protocol Potassium Chloride 40 meq 02/11/24 09:00 Potassium Chloride 20 Meq Er Tablet PO DAILY INGRID Radiology Results: ITS Impressions Head CT 02/09/24 05:28 Impression: No significant abnormality seen. Abdomen/Pelvis CT 02/09/24 05:31 Impression: Suspected bowel wall thickening of the distal rectum with mildly enlarged perirectal lymph nodes. Findings could reflect infectious/inflammatory colitis. Rectal neoplasm of a potential alternative consideration. Correlate clinically. Mild splenomegaly with 1.6 cm nonspecific hypodense splenic mass. 7 mm right upper lobe pulmonary nodule. This is stable as compared to prior chest CT dated 06/02/2023, but is indeterminate overall. Consider additional follow-up CT scan in 6-12 months. Chest X-Ray 02/09/24 06:04 Impression: Central congestive change and mild central pulmonary edema. Chest CTA 02/09/24 07:32 Impression: No evidence of pulmonary embolus, aortic dissection, or aortic aneurysm. Findings compatible with suboptimal inspiratory effort and/or mild atelectatic change. Decreased cystic/bullous change in the upper lobes. Labs Labs: Laboratory Results - last 24 hr 02/10/24 02/10/24 02/10/24 05:28 05:28 12:27 WBC RBC Hgb Hct MCV MCH MCHC RDW Plt Count MPV Sodium Potassium Chloride Carbon Dioxide Anion Gap BUN Creatinine Estim Creat Clear Calc Estimated GFR Glucose POC Capillary Glucose 100 Hemoglobin A1c 6.7 H Calcium Magnesium 1.5 L Total Bilirubin AST ALT Alkaline Phosphatase Troponin I 0.142 H* Total Protein Albumin Triglycerides 204 H Cholesterol 106 LDL Cholesterol Direct 41 HDL Direct 23 TSH 4.000 Cancelled 02/10/24 02/10/24 02/11/24 16:58 19:48 05:20 WBC 7.6 RBC 4.69 Hgb 13.0 Hct 40.5 MCV 86.4 MCH 27.7 MCHC 32.1 RDW 16.2 H Plt Count 208 MPV 10.3 Sodium 135 L Potassium 3.5 Chloride 98 Carbon Dioxide 32 H Anion Gap 5 BUN 15 D Creatinine 0.80 Estim Creat Clear Calc 56 Estimated GFR > 60 Glucose 110 POC Capillary Glucose 90 124 H Hemoglobin A1c Calcium 9.5 Magnesium 1.9 Total Bilirubin 0.9 AST 26 ALT 16 Alkaline Phosphatase 85 Troponin I Total Protein 8.0 Albumin 4.0 Triglycerides Cholesterol LDL Cholesterol Direct HDL Direct TSH Quality VTE Prophylaxis VTE prophylaxis: pharmacologic ordered -Patient's previous records reviewed on admission -ER notes reviewed in detail on admission -discussed all findings and current treatment plan with patient/Family/POA -Consultations reviewed for recommendations -Patient's disposition for safe discharge discussed with classification case manager Dictation performed by [employer] direct speech recognition software, therefore cemetery manager variants and typographical errors may occur. Hospitalist MIPS Advance Care Plan I have confirmed that the patient's Advanced Care Plan is present, code status is documented, or surrogate decision maker is listed in patient medical record.: Yes Medication Reconciliation I have utilized all available resources to obtain, update and review the patients current medications (includes all prescriptions, OTC, herbals, cannabis, and nutritional supplements).: Yes The patient is not eligible for med reconciliation; the patient is in a emergent medical situation where delaying treatment would jeopardize the patients health.: No
[2024-02-11] MEDS: ENOXAPARIN 40 MG/0.4 ML SYRINGE SUB-Q (08:32)
[2024-02-11] MEDS: ATORVASTATIN 40 MG TABLET PO (08:32)
[2024-02-11] MEDS: DESVENLAFAXINE SUCCINATE 50 MG TAB.ER.24H 100 MG PO (08:32)
[2024-02-11] MEDS: METOPROLOL SUCCINATE EXT REL 50 MG TABCR PO (08:32)
[2024-02-11] MEDS: POTASSIUM CHLORIDE 20 MEQ ER TABLET 40 MEQ PO (08:32)
[2024-02-11] MEDS: FUROSEMIDE INJ 40 MG/4 ML VIAL IV PUSH ×2 (08:33→17:10)
[2024-02-11] MEDS: EMPAGLIFLOZIN 10 MG TABLET BY MOUTH (08:35)
[2024-02-11 08:39] LABS: Glucose Point of Care 105 mg/dl (65-105)
--- NOTE | 2024-02-11 11:52 | PM.PNCARD ---
Progress Note: A&P Assessment and Plan (1) Acute on chronic diastolic (congestive) heart failure: Code(s): I50.33 - Acute on chronic diastolic (congestive) heart failure Status: Acute Assessment and Plan: Assessment: 1. Acute on chronic diastolic heart failure; LVEF 55-60% by echo in 05/2023; BNP elevated at 6700 2. Elevated troponin 0.329, 0.275, 0.142; most likely secondary to acute on chronic heart failure versus ischemia given risk factors for CAD including obesity, hypertension, hyperlipidemia, diabetes mellitus. Though she does not have any chest pain, she has SOB which could be an anginal equivalent. Moreover, she is not very active and does not even walk a block or go up and down stairs (no stairs in her house) 3. Acute on chronic hypoxic respiratory failure most likely secondary to acute heart failure 4. Hyperlipidemia 5. Morbid obesity 6. Obstructive sleep apnea on CPAP-not using regularly 7. Hypertension 8. Altered mental status most likely secondary to hypoxia- resolved 9. Hypokalemia- resolved Plan Plan: 1. Continue diuresis with IV Lasix 40 mg b.i.d. today. Can switch to Lasix PO tomorrow 40 mg BID 2. Check ins and outs daily and measured weights daily. Restrict fluid intake to 1.5 L per day 3. Oxygen as needed to keep SaO2 greater than 90%. CPAP at night- will need new settings (pt reports she missed her appointment for CPAP settings) 4. Check renal function daily 5. Check electrolytes and replace to keep potassium greater than 4 and magnesium greater than 2 6. Can stop trending troponins as they have peaked and are downtrending 7. Plan for right and left heart catheterization on Monday. Keep NPO at midnight 8. Start aspirin 81 mg daily 9. Continue metoprolol, SGLT 2 inhibitor 10. TTE 11. Management of other medical problems per primary team Subjective Date/time seen: 02/11/24 11:52 Interval history: Reason For Visit: AMS, CHF exacerbation, elevated troponin Narrative: 68-year-old female with past medical history of diabetes mellitus, obstructive sleep apnea, hypertension, hyperlipidemia, COPD/emphysema, obesity, bipolar disorder, and anxiety was admitted for altered mental status, weakness, and diarrhea secondary to IBS (ulcerative colitis). She was noted to have hypoxia, acute on chronic heart failure, and elevated troponin. Cardiology was consulted for heart failure. Work up: Troponin: 0.329, 0.275, 0.142 EKG: Sinus tachycardia, heart rate 110 TTE: 05/2023: LVEF 55-60%, no significant valvular pathology Chest x-ray: Pulmonary edema CT chest: No evidence of pulmonary embolus, aortic dissection, or aortic aneurysm. Findings compatible with suboptimal inspiratory effort and/or mild atelectatic change. Decreased cystic/bullous change in the upper lobes. CT abdomen and pelvis: Suspected bowel wall thickening of the distal rectum with mildly enlarged perirectal lymph nodes. Findings could reflect infectious/inflammatory colitis. Rectal neoplasm of a potential alternative consideration. Correlate clinically. Mild splenomegaly with 1.6 cm nonspecific hypodense splenic mass. 7 mm right upper lobe pulmonary nodule. This is stable as compared to prior chest CT dated 06/02/2023, but is indeterminate overall. Consider additional follow-up CT scan in 6-12 months. Interval history: Shortness of breath is decreased. She is off oxygen. No chest pain, palpitations, nausea, emesis. She has diarrhea all her life due to IBS. Review of Systems Review of Systems: A complete ROS was performed and pertinent positives are noted in the HPI Exam Narrative: General: Alert oriented x3, no acute distress Neck: Supple, JVD + Chest: Bilaterally clear to auscultation, no rales or rhonchi Cardiac: S1, S2 +, regular rate, regular rhythm, no murmurs or rubs Extremities: Bilateral lower extremity edema 1+, no skin rash Neurologic: Alert and oriented x3, no focal neurological deficits Objective Data Vital Signs Vital Signs: Vital Signs - 24 hr 02/10/24 12:05 02/10/24 14:00 02/10/24 16:04 Temperature 36.3 C L Pulse Rate 89 101 H 90 Respiratory Rate 16 Blood Pressure 117/46 L Pulse Oximetry 96 Oxygen Delivery 02/10/24 20:00 02/10/24 20:00 02/10/24 20:22 Temperature 36.9 C Pulse Rate 87 85 Respiratory Rate 20 Blood Pressure 119/60 Pulse Oximetry 97 Oxygen Delivery Room Air 02/11/24 00:00 02/11/24 04:00 02/11/24 05:58 Temperature 36.9 C Pulse Rate 77 71 82 Respiratory Rate 18 Blood Pressure 146/68 H Pulse Oximetry 97 Oxygen Delivery 02/11/24 07:58 02/11/24 08:00 02/11/24 08:00 Temperature Pulse Rate 82 Respiratory Rate Blood Pressure Pulse Oximetry Oxygen Delivery Room Air Room Air 02/11/24 08:32 02/11/24 08:57 Temperature Pulse Rate 82 Respiratory Rate Blood Pressure Pulse Oximetry Oxygen Delivery Room Air Intake/Output Intake/Output: Intake & Output 02/08/24 02/09/24 02/10/24 02/11/24 23:59 23:59 23:59 23:59 Intake Total 3000 2620 790 Balance 3000 2620 790 Meds/Results Medications: Active Medications Generic Name Dose Route Start Last Admin Trade Name Freq PRN Reason Stop Dose Admin Acetaminophen 650 mg 02/09/24 13:48 02/10/24 15:37 Acetaminophen 325 Mg Tablet PO 650 mg Q4H PRN Administration Mild Pain (1-3) or Fever Hydrocodone Bitart/Acetaminophen 1 tab 02/09/24 13:48 02/11/24 08:40 Hydrocodone/Acetaminophen (*Crx) 5-325 Mg Tablet PO 1 tab Q4H PRN Administration Moderate Pain (4-6) Atorvastatin Calcium 40 mg 02/10/24 09:00 02/11/24 08:32 Atorvastatin 40 Mg Tablet PO 40 mg DAILY INGRID Administration Desvenlafaxine Succinate 100 mg 02/10/24 09:00 02/11/24 08:32 Desvenlafaxine Succinate 50 Mg Tab.Er.24h PO 100 mg DAILY INGRID Administration Dextrose 12.5 gm 02/10/24 09:47 Dextrose 50% 25 Gm/50 Ml Syringe IV PUSH PRN PRN Hypoglycemia Protocol Docusate Sodium 100 mg 02/09/24 13:48 Docusate Sodium 100 Mg Capsule PO BID PRN Constipation Empagliflozin 10 mg 02/10/24 09:00 02/11/24 08:35 Empagliflozin 10 Mg Tablet BY MOUTH 10 mg DAILY INGRID Administration Enoxaparin Sodium 40 mg 02/10/24 09:00 02/11/24 08:32 Enoxaparin 40 Mg/0.4 Ml Syringe SUB-Q 40 mg DAILY INGRID Administration Furosemide 40 mg 02/10/24 09:25 02/11/24 08:33 Furosemide Inj 40 Mg/4 Ml Vial IV PUSH 40 mg BID INGRID Administration Glucagon 1 mg 02/10/24 09:47 Glucagon For Inj 1 Mg Vial IM PRN PRN Hypoglycemia Protocol Glucose 15 gm 02/10/24 09:47 Glucose Oral Gel 15 Gm Of Glucse In 37.5 Gm Tube PO PRN PRN Hypoglycemia Protocol Dextrose 1,000 mls @ 100 mls/hr 02/10/24 09:47 Dextrose 5% 1,000 Ml IVPB PRN PRN Hypoglycemia Protocol Insulin Aspart 2 - 5 units 02/10/24 12:00 02/11/24 08:33 Insulin Aspart (*Bkc) 100 Units/Ml SUB-Q Not Given TIDWM INGRID Protocol Metoprolol Succinate 50 mg 02/10/24 09:00 02/11/24 08:32 Metoprolol Succinate Ext Rel 50 Mg Tabcr PO 50 mg DAILY INGRID Administration Miscellaneous Information 0 each 02/09/24 00:01 02/11/24 08:43 Dextroamphetamine/Amphetamine 20mg Nonform Can Pt Bring From Home??? XX 03/10/24 00:00 Not Given CLARIFY INGRID Non-Formulary Medication 20 mg 02/10/24 09:00 Dextroamphetamine-Amphetamine PO 03/11/24 08:59 TID INGRID Ondansetron HCl 4 mg 02/09/24 09:57 Ondansetron Inj 4 Mg/2 Ml Vial IV PUSH Q4H PRN Nausea Perflutren Lipid Microsphere 0 ml 02/09/24 23:50 Perflutren Lipid Microspheres 1.5 Ml Vial Diluted To 10 Ml Total Volume IV PUSH 02/12/24 23:50 ONCE PRN adequate visualization Protocol Potassium Chloride 40 meq 02/11/24 09:00 02/11/24 08:32 Potassium Chloride 20 Meq Er Tablet PO 40 meq DAILY INGRID Administration Radiology Results: ITS Impressions Head CT 02/09/24 05:28 Impression: No significant abnormality seen. Abdomen/Pelvis CT 02/09/24 05:31 Impression: Suspected bowel wall thickening of the distal rectum with mildly enlarged perirectal lymph nodes. Findings could reflect infectious/inflammatory colitis. Rectal neoplasm of a potential alternative consideration. Correlate clinically. Mild splenomegaly with 1.6 cm nonspecific hypodense splenic mass. 7 mm right upper lobe pulmonary nodule. This is stable as compared to prior chest CT dated 06/02/2023, but is indeterminate overall. Consider additional follow-up CT scan in 6-12 months. Chest X-Ray 02/09/24 06:04 Impression: Central congestive change and mild central pulmonary edema. Chest CTA 02/09/24 07:32 Impression: No evidence of pulmonary embolus, aortic dissection, or aortic aneurysm. Findings compatible with suboptimal inspiratory effort and/or mild atelectatic change. Decreased cystic/bullous change in the upper lobes. Labs Labs: Laboratory Results - last 24 hr 02/10/24 02/10/24 02/10/24 12:27 16:58 19:48 WBC RBC Hgb Hct MCV MCH MCHC RDW Plt Count MPV Sodium Potassium Chloride Carbon Dioxide Anion Gap BUN Creatinine Estim Creat Clear Calc Estimated GFR Glucose POC Capillary Glucose 100 90 124 H Calcium Magnesium Total Bilirubin AST ALT Alkaline Phosphatase Total Protein Albumin 02/11/24 02/11/24 05:20 08:33 WBC 7.6 RBC 4.69 Hgb 13.0 Hct 40.5 MCV 86.4 MCH 27.7 MCHC 32.1 RDW 16.2 H Plt Count 208 MPV 10.3 Sodium 135 L Potassium 3.5 Chloride 98 Carbon Dioxide 32 H Anion Gap 5 BUN 15 D Creatinine 0.80 Estim Creat Clear Calc 56 Estimated GFR > 60 Glucose 110 POC Capillary Glucose 105 Calcium 9.5 Magnesium 1.9 Total Bilirubin 0.9 AST 26 ALT 16 Alkaline Phosphatase 85 Total Protein 8.0 Albumin 4.0
[2024-02-11 12:13] LABS: Glucose Point of Care 94 mg/dl (65-105)
[2024-02-11 17:09] LABS: Glucose Point of Care 113 mg/dl (65-105)
[2024-02-11 20:08] LABS: Glucose Point of Care 126 mg/dl (65-105)
[2024-02-11] MEDS: MELATONIN 5 MG TABLET PO (21:06)
[2024-02-12] VITALS (10 sets, daily range): BP systolic 123–136; BP diastolic 55–69; PULSE 76–100; RESP 17–20; TEMP 36.7–37.1; O2SAT 95–96
[2024-02-12 05:41] LABS: Hemoglobin 13.4 g/dL (12.0-15.0); Mean Corpuscular HGB Conc 32.7 g/dl (32-36); Mean Corpuscular Hemoglobin 28.1 pg (26-34); Mean Platelet Volume 10.4 fl (7.4-10.4); Platelet Count Result 225 k/mm3 (150-375); Red Blood Count 4.77 M/mm3 (4.2-5.4); Red Cell Distribution Width 16.1 % (11.5-14.5); White Blood Count 7.3 K/mm3 (4.5-10.0)
[2024-02-12 05:52] LABS: Alanine Aminotransferase 16 U/L (6-35); Alkaline Phosphatase 90 U/L (38-126); Anion Gap 6 mmol/L (4-12); Aspartate Amino Transferase 26 U/L (14-36); Bilirubin,Total 0.8 mg/dL (0.2-1.3); Blood Urea Nitrogen 18 mg/dL (7-17); Calcium 9.4 mg/dL (8.4-10.2); Carbon Dioxide 32 mmol/L (22-30); Chloride 97 mmol/L (98-107); Estimated CRCL calculation 64 ml/min; Estimated Glomerular Filt Rate > 60; Glucose 110 mg/dL (65-110); Magnesium 1.8 mg/dL (1.6-2.3); Potassium 3.6 mmol/L (3.4-5.0); Sodium 135 mmol/L (137-145)
[2024-02-12] MEDS: METOPROLOL SUCCINATE EXT REL 50 MG TABCR PO (08:35)
[2024-02-12] MEDS: POTASSIUM CHLORIDE 20 MEQ ER TABLET 40 MEQ PO (08:36)
[2024-02-12] MEDS: DESVENLAFAXINE SUCCINATE 50 MG TAB.ER.24H 100 MG PO (08:36)
[2024-02-12] MEDS: ATORVASTATIN 40 MG TABLET PO (08:36)
[2024-02-12 08:54] LABS: Glucose Point of Care 125 mg/dl (65-105)
--- NOTE | 2024-02-12 10:08 | P.PNIM_ITS ---
Progress Note: A&P Assessment and Plan (1) Non-ST elevation (NSTEMI) myocardial infarction: Code(s): I21.4 - Non-ST elevation (NSTEMI) myocardial infarction Status: Acute Assessment and Plan: patient had elevated troponins back in May of 2023 also appeared to be CHF exacerbation as well as CHINO likely ischemic demand * Troponin trending down 0.329/0.275/ 3rd pending * last echocardiogram showed diastolic dysfunction LVEF 50-60 * BNP 6700 * cardiology consulted for further evaluation as to whether patient may need ischemic workup * EKG reviewed showing sinus tachycardia rate's low 100's 02/11/24: * Cardiology plan for R/L heart cath 02/11 * npo at midnight 02/12/24: * Unable to perform Cath due to staffing hopefully tomorrow Cath 02/12 (2) Acute and chronic respiratory failure with hypoxia: Code(s): J96.21 - Acute and chronic respiratory failure with hypoxia Status: Acute Assessment and Plan: patient presented with hypoxia altered mental status multifocal to noncompliance with CPAP and CHF exacerbation possible polypharmacy * 80% on room air * supplemental oxygen wean as tolerated to maintain 92% * started treatment for CHF IV lasix BID echo pending * encourage compliance with her CPAP and resumed CPAP * currently holding sedative medications 02/11/24: * Weaned to room air (3) Acute on chronic diastolic (congestive) heart failure: Code(s): I50.33 - Acute on chronic diastolic (congestive) heart failure Status: Acute Assessment and Plan: patient was admitted back in May of 2023 found to have grade 1 diastolic dysfunction with LVEF 50-60% appear to be new onset BNP then was around 1100 currently patient's BNP is 6700 and checks x-ray showing pulmonary edema * BNP 6700 * cardiology consulted to evaluate if patient needs ischemic workup * continued patient's metoprolol, Farxiga, and statin * IV Lasix b.i.d. * monitor renal function during diuresis * previous echocardiogram results 06/13: grade 1 diastolic dysfunction LVEF 50- 60% * echocardiogram pending * EKG STach * chest x-ray Pulmonary edema * Lipid panel, TSH, liver function test. * Optimize Rebel inhibitors, beta-blockers, ARNI * Daily weight. (4) Altered mental status: Code(s): R41.82 - Altered mental status, unspecified Status: Acute Assessment and Plan: Could be secondary to polypharmacy with multiple sedative medications vs hypoxia secondary to CHINO and CPAP noncompliance and CHF exacerbation * Holding Xanax, flexeril * Resumed home CPAP RESOLVED (5) Diarrhea: Code(s): R19.7 - Diarrhea, unspecified Status: Acute Assessment and Plan: Patient reported multiple episodes diarrhea home * abdominal CT showing wall thickening of the distal rectum with enlarged perirectal lymph nodes could be colitis but rectal neoplasm can not be ruled out however 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 * patient takes mesalamine rectal suppository resumed * C diff sample ordered * GI consulted * may need colonoscopy over may need to wait till infectious process resolved * Zosyn IV 02/11/24: * Patient had been started in [place] injections with GI follows outpatient * D/C mesalamine no longer taking * Stopped IV zosyn (6) 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 Status: Acute Assessment and Plan: SEE ABOVE PLAN #4 (7) Obstructive sleep apnea: Code(s): G47.33 - Obstructive sleep apnea (adult) (pediatric) Status: Acute Assessment and Plan: Patient reports noncompliance with CPAP * resumed patient's home CPAP (8) Bipolar disorder: Code(s): F31.9 - Bipolar disorder, unspecified Status: Acute Assessment and Plan: patient used to see a psychiatrist outpatient but now primary care physician continues to prescribe her mood stabilizers * Adderall, Xanax, Abilify (9) Type 2 diabetes mellitus: Code(s): E11.9 - Type 2 diabetes mellitus without complications Status: Acute Assessment and Plan: patient on semaglutide at home as well as [facility] Diabetes * Accu-Cheks a.c. HS * sliding scale insulin * hold oral diabetic medications * semaglutide non formulated patient will bring from home currently holding * Hemoglobin A1c goal less than 7 pending * lipid panel pending * Optimize Rebel inhibitors and statins. * Watch for hypoglycemia/hypoglycemic protocol ordered Plan Code status: Full code per patient DVT prophylaxis: Lovenox Stress ulcer prophylaxis: Protonix 40 daily PT/OT notes: patient ambulatory Disposition: patient was admitted to the medical unit for further evaluation and treatment of acute respiratory failure with hypoxia and altered mental status she was also found to have elevated troponins CHF exacerbation will continue with current treatment plan for R/L heart cath re-scheduled for tomorrow. Plan to discharge back to home when medically stable. Time Spent With Patient Time with patient: 15 - 25 minutes Subjective Date/time seen: 02/12/24 10:08 Interval history: Patient is a 68-year-old female who was admitted for acute on chronic respiratory failure with hypoxia possibly secondary to CHF exacerbation also had elevated troponins but currently trending down could be secondary to ischemic demand. Patient to be continued with CHF exacerbation treatment and possible colitis versus rectal neoplasm. 02/12/24: Patient no acute distress, denied SOB, CP, N/V, dizziness and voiding well. Was scheduled for cath today but unable to due to scheduling. Review of Systems Review of Systems: 12 systems were reviewed and are negativ e except for as per HPI. All systems reviewed & are unremarkable except as noted in HPI and below Exam Narrative: * GENERAL: Alert and oriented x 3. No acute distress. * EYES: PERRLA. * HEENT: Moist mucous membranes. * LUNGS: Clear to auscultation bilaterally. No accessory muscle use. * CARDIOVASCULAR: Regular rate and rhythm. No murmur. No JVD. S1-S2 * ABDOMEN: Soft, non tenderness and non-distended. No palpable masses. * EXTREMITIES: No edema. Pain with movement to bilateral shoulders * SKIN: No rashes or lesions. Skin warm, dry. * NEUROLOGIC: No focal neurological deficits. CN II-XII grossly intact * PSYCHIATRIC: Appropriate mood and affect. Good judgement and insight. Objective Data Vital Signs Vital Signs: Vital Signs - 24 hr 02/11/24 12:00 02/11/24 14:57 02/11/24 16:00 Temperature 97.6 F Pulse Rate 84 69 79 Respiratory Rate 16 Blood Pressure 116/60 Pulse Oximetry 94 Oxygen Delivery 02/11/24 20:00 02/11/24 20:47 02/12/24 00:00 Temperature 98.4 F Pulse Rate 80 81 76 Respiratory Rate 20 Blood Pressure 117/75 Pulse Oximetry 96 Oxygen Delivery 02/12/24 04:00 02/12/24 06:00 02/12/24 08:00 Temperature 98.6 F Pulse Rate 89 84 Respiratory Rate 20 Blood Pressure 136/69 Pulse Oximetry 95 95 Oxygen Delivery Room Air 02/12/24 08:00 02/12/24 08:35 Temperature Pulse Rate 87 82 Respiratory Rate Blood Pressure Pulse Oximetry Oxygen Delivery Intake/Output Intake/Output: Intake & Output 02/09/24 02/10/24 02/11/24 02/12/24 23:59 23:59 23:59 23:59 Intake Total 3000 2620 1480 500 Balance 3000 2620 1480 500 Meds/Results Medications: Active Medications Generic Name Dose Route Start Last Admin Trade Name Freq PRN Reason Stop Dose Admin Acetaminophen 650 mg 02/09/24 13:48 02/10/24 15:37 Acetaminophen 325 Mg Tablet PO 650 mg Q4H PRN Administration Mild Pain (1-3) or Fever Hydrocodone Bitart/Acetaminophen 1 tab 02/09/24 13:48 02/11/24 22:27 Hydrocodone/Acetaminophen (*Crx) 5-325 Mg Tablet PO 1 tab Q4H PRN Administration Moderate Pain (4-6) Atorvastatin Calcium 40 mg 02/10/24 09:00 02/12/24 08:36 Atorvastatin 40 Mg Tablet PO 40 mg DAILY INGRID Administration Desvenlafaxine Succinate 100 mg 02/10/24 09:00 02/12/24 08:36 Desvenlafaxine Succinate 50 Mg Tab.Er.24h PO 100 mg DAILY INGRID Administration Dextrose 12.5 gm 02/10/24 09:47 Dextrose 50% 25 Gm/50 Ml Syringe IV PUSH PRN PRN Hypoglycemia Protocol Docusate Sodium 100 mg 02/09/24 13:48 Docusate Sodium 100 Mg Capsule PO BID PRN Constipation Empagliflozin 10 mg 02/10/24 09:00 02/11/24 08:35 Empagliflozin 10 Mg Tablet BY MOUTH 10 mg DAILY INGRID Administration Enoxaparin Sodium 40 mg 02/10/24 09:00 02/11/24 08:32 Enoxaparin 40 Mg/0.4 Ml Syringe SUB-Q 40 mg DAILY INGRID Administration Furosemide 40 mg 02/10/24 09:25 02/11/24 17:10 Furosemide Inj 40 Mg/4 Ml Vial IV PUSH 40 mg BID INGRID Administration Glucagon 1 mg 02/10/24 09:47 Glucagon For Inj 1 Mg Vial IM PRN PRN Hypoglycemia Protocol Glucose 15 gm 02/10/24 09:47 Glucose Oral Gel 15 Gm Of Glucse In 37.5 Gm Tube PO PRN PRN Hypoglycemia Protocol Dextrose 1,000 mls @ 100 mls/hr 02/10/24 09:47 Dextrose 5% 1,000 Ml IVPB PRN PRN Hypoglycemia Protocol Insulin Aspart 2 - 5 units 02/10/24 12:00 02/12/24 08:39 Insulin Aspart (*Bkc) 100 Units/Ml SUB-Q Not Given TIDWM INGRID Protocol Melatonin 5 mg 02/11/24 17:30 02/11/24 21:06 Melatonin 5 Mg Tablet PO 5 mg HS PRN Administration insomnia Metoprolol Succinate 50 mg 02/10/24 09:00 02/12/24 08:35 Metoprolol Succinate Ext Rel 50 Mg Tabcr PO 50 mg DAILY INGRID Administration Miscellaneous Information 0 each 02/09/24 00:01 02/11/24 08:43 Dextroamphetamine/Amphetamine 20mg Nonform Can Pt Bring From Home??? XX 03/10/24 00:00 Not Given CLARIFY INGRID Non-Formulary Medication 20 mg 02/10/24 09:00 Dextroamphetamine-Amphetamine PO 03/11/24 08:59 TID INGRID Ondansetron HCl 4 mg 02/09/24 09:57 Ondansetron Inj 4 Mg/2 Ml Vial IV PUSH Q4H PRN Nausea Perflutren Lipid Microsphere 0 ml 02/09/24 23:50 Perflutren Lipid Microspheres 1.5 Ml Vial Diluted To 10 Ml Total Volume IV PUSH 02/12/24 23:50 ONCE PRN adequate visualization Protocol Potassium Chloride 40 meq 02/11/24 09:00 02/12/24 08:36 Potassium Chloride 20 Meq Er Tablet PO 40 meq DAILY INGRID Administration Radiology Results: ITS Impressions Head CT 02/09/24 05:28 Impression: No significant abnormality seen. Abdomen/Pelvis CT 02/09/24 05:31 Impression: Suspected bowel wall thickening of the distal rectum with mildly enlarged perirectal lymph nodes. Findings could reflect infectious/inflammatory colitis. Rectal neoplasm of a potential alternative consideration. Correlate clinically. Mild splenomegaly with 1.6 cm nonspecific hypodense splenic mass. 7 mm right upper lobe pulmonary nodule. This is stable as compared to prior [facility] CT dated 06/02/2023, but is indeterminate overall. Consider additional follow-up CT scan in 6-12 months. Chest X-Ray 02/09/24 06:04 Impression: Central congestive change and mild central pulmonary edema. Chest CTA 02/09/24 07:32 Impression: No evidence of pulmonary embolus, aortic dissection, or aortic aneurysm. Findings compatible with suboptimal inspiratory effort and/or mild atelectatic change. Decreased cystic/bullous change in the upper lobes. Labs Labs: Laboratory Results - last 24 hr 02/11/24 02/11/24 02/11/24 12:08 17:02 19:49 WBC RBC Hgb Hct MCV MCH MCHC RDW Plt Count MPV Sodium Potassium Chloride Carbon Dioxide Anion Gap BUN Creatinine Estim Creat Clear Calc Estimated GFR Glucose POC Capillary Glucose 94 113 H 126 H Calcium Magnesium Total Bilirubin AST ALT Alkaline Phosphatase Total Protein Albumin 02/12/24 02/12/24 05:27 08:37 WBC 7.3 RBC 4.77 Hgb 13.4 Hct 41.0 MCV 86.0 MCH 28.1 MCHC 32.7 RDW 16.1 H Plt Count 225 MPV 10.4 Sodium 135 L Potassium 3.6 Chloride 97 L Carbon Dioxide 32 H Anion Gap 6 BUN 18 H Creatinine 0.70 Estim Creat Clear Calc 64 Estimated GFR > 60 Glucose 110 POC Capillary Glucose 125 H Calcium 9.4 Magnesium 1.8 Total Bilirubin 0.8 AST 26 ALT 16 Alkaline Phosphatase 90 Total Protein 8.0 Albumin 4.0 Quality VTE Prophylaxis VTE prophylaxis: pharmacologic ordered -Patient's previous records reviewed on admission -ER notes reviewed in detail on admission -discussed all findings and current treatment plan with patient/Family/POA -Consultations reviewed for recommendations -Patient's disposition for safe discharge discussed with pillowcase turner Dictation performed by [employer] direct speech recognition software, therefore director equipment variants and typographical errors may occur. Hospitalist MIPS Advance Care Plan I have confirmed that the patient's Advanced Care Plan is present, code status is documented, or surrogate decision maker is listed in patient medical record.: Yes Medication Reconciliation I have utilized all available resources to obtain, update and review the patients current medications (includes all prescriptions, OTC, herbals, cannabis, and nutritional supplements).: Yes The patient is not eligible for med reconciliation; the patient is in a emergent medical situation where delaying treatment would jeopardize the patients health.: No
[2024-02-12 10:50] LABS: Glucose Point of Care 114 mg/dl (65-105)
[2024-02-12] MEDS: FUROSEMIDE INJ 40 MG/4 ML VIAL IV PUSH (12:05)
[2024-02-12] MEDS: ENOXAPARIN 40 MG/0.4 ML SYRINGE SUB-Q (12:06)
[2024-02-12] MEDS: EMPAGLIFLOZIN 10 MG TABLET BY MOUTH (12:06)
--- NOTE | 2024-02-12 12:21 | PM.PNCARD ---
Progress Note: A&P Assessment and Plan (1) Acute on chronic diastolic (congestive) heart failure: Code(s): I50.33 - Acute on chronic diastolic (congestive) heart failure Status: Acute Assessment and Plan: Assessment: 1. Acute on chronic diastolic heart failure; LVEF 55-60% by echo in 05/2023; BNP elevated at 6700 2. Elevated troponin 0.329, 0.275, 0.142; most likely secondary to acute on chronic heart failure versus ischemia given risk factors for CAD including obesity, hypertension, hyperlipidemia, diabetes mellitus. Though she does not have any chest pain, she has SOB which could be an anginal equivalent. Moreover, she is not very active and does not even walk a block or go up and down stairs (no stairs in her house) 3. Acute on chronic hypoxic respiratory failure most likely secondary to acute heart failure 4. Hyperlipidemia 5. Morbid obesity 6. Obstructive sleep apnea on CPAP-not using regularly 7. Hypertension 8. Altered mental status most likely secondary to hypoxia- resolved 9. Hypokalemia- resolved Plan Plan: 1. Continue diuresis with IV Lasix 40 mg b.i.d. today. Can switch to Lasix PO tomorrow 40 mg BID 2. Check ins and outs daily and measured weights daily. Restrict fluid intake to 1.5 L per day 3. Oxygen as needed to keep SaO2 greater than 90%. CPAP at night- will need new settings (pt reports she missed her appointment for CPAP settings) 4. 5. Check electrolytes and replace to keep potassium greater than 4 and magnesium greater than 2 6. Can stop trending troponins as they have peaked and are downtrending 7. As she now appears euvolemic on exam and denies any chest pain currently or history of chest pain, recommend outpatient ishemic evaluation with [facility] w/ Dr. Coronado. Discussed with Dr. Coronado who agrees with plan. 8. Start aspirin 81 mg daily 9. Continue metoprolol, SGLT 2 inhibitor 10.TTE showed normal LV systolic function with EF 60-65%, grade I DD, and mild pulmonic regurg. 11. Management of other medical problems per primary team Cardiology will sign off and will arrange outpatient C with Dr. Coronado. Subjective Date/time seen: 02/12/24 12:21 Interval history: Cardiology follow up visit She feels well today. No chest pain, shortness of breath, no edema. Review of Systems Review of Systems: A complete ROS was performed and pertinent positives are noted in the HPI Exam Const: General: comfortable, no acute distress, alert and awake Orientation/consciousness: patient oriented x3 HENMT: Head: normal to inspection Eyes: General: appearance normal, both eyes and all related structures Pupils: Equal, round and reactive pupils present Neck: Neck: normal visual inspection, supple and no JVD Carotids: normal carotid upstroke Resp: Effort & Inspection: normal respiratory effort Auscultation: clear to auscultation bilaterally, no rales and diminished lung sounds Cardio: Rate: regular rate Rhythm: regular rhythm Heart sounds: S1 normal heart sound present, S2 normal heart sound present and no murmurs GI: Auscultation: normal bowel sounds Skin: General skin exam: normal color Neuro: General: patient oriented x3 Cranial nerves: Yes Equal, round and reactive pupils present Extrem: General: normal to inspection Psych: Appearance: grossly normal Mental Status: mental status grossly normal Objective Data Vital Signs Vital Signs: Vital Signs - 24 hr 02/11/24 14:57 02/11/24 16:00 02/11/24 20:00 Temperature 36.4 C Pulse Rate 69 79 80 Respiratory Rate 16 Blood Pressure 116/60 Pulse Oximetry 94 Oxygen Delivery 02/11/24 20:47 02/12/24 00:00 02/12/24 04:00 Temperature 36.9 C Pulse Rate 81 76 89 Respiratory Rate 20 Blood Pressure 117/75 Pulse Oximetry 96 Oxygen Delivery 02/12/24 06:00 02/12/24 08:00 02/12/24 08:00 Temperature 37.0 C Pulse Rate 84 87 Respiratory Rate 20 Blood Pressure 136/69 Pulse Oximetry 95 95 Oxygen Delivery Room Air 02/12/24 08:35 Temperature Pulse Rate 82 Respiratory Rate Blood Pressure Pulse Oximetry Oxygen Delivery Intake/Output Intake/Output: Intake & Output 02/09/24 02/10/24 02/11/24 02/12/24 23:59 23:59 23:59 23:59 Intake Total 3000 2620 1480 500 Balance 3000 2620 1480 500 Meds/Results Medications: Active Medications Generic Name Dose Route Start Last Admin Trade Name Freq PRN Reason Stop Dose Admin Acetaminophen 650 mg 02/09/24 13:48 02/10/24 15:37 Acetaminophen 325 Mg Tablet PO 650 mg Q4H PRN Administration Mild Pain (1-3) or Fever Hydrocodone Bitart/Acetaminophen 1 tab 02/09/24 13:48 02/11/24 22:27 Hydrocodone/Acetaminophen (*Crx) 5-325 Mg Tablet PO 1 tab Q4H PRN Administration Moderate Pain (4-6) Atorvastatin Calcium 40 mg 02/10/24 09:00 02/12/24 08:36 Atorvastatin 40 Mg Tablet PO 40 mg DAILY INGRID Administration Desvenlafaxine Succinate 100 mg 02/10/24 09:00 02/12/24 08:36 Desvenlafaxine Succinate 50 Mg Tab.Er.24h PO 100 mg DAILY INGRID Administration Dextrose 12.5 gm 02/10/24 09:47 Dextrose 50% 25 Gm/50 Ml Syringe IV PUSH PRN PRN Hypoglycemia Protocol Docusate Sodium 100 mg 02/09/24 13:48 Docusate Sodium 100 Mg Capsule PO BID PRN Constipation Empagliflozin 10 mg 02/10/24 09:00 02/12/24 12:06 Empagliflozin 10 Mg Tablet BY MOUTH 10 mg DAILY INGRID Administration Enoxaparin Sodium 40 mg 02/10/24 09:00 02/12/24 12:06 Enoxaparin 40 Mg/0.4 Ml Syringe SUB-Q 40 mg DAILY INGRID Administration Furosemide 40 mg 02/10/24 09:25 02/12/24 12:05 Furosemide Inj 40 Mg/4 Ml Vial IV PUSH 40 mg BID INGRID Administration Glucagon 1 mg 02/10/24 09:47 Glucagon For Inj 1 Mg Vial IM PRN PRN Hypoglycemia Protocol Glucose 15 gm 02/10/24 09:47 Glucose Oral Gel 15 Gm Of Glucse In 37.5 Gm Tube PO PRN PRN Hypoglycemia Protocol Dextrose 1,000 mls @ 100 mls/hr 02/10/24 09:47 Dextrose 5% 1,000 Ml IVPB PRN PRN Hypoglycemia Protocol Insulin Aspart 2 - 5 units 02/10/24 12:00 02/12/24 11:13 Insulin Aspart (*Bkc) 100 Units/Ml SUB-Q Not Given TIDWM INGRID Protocol Melatonin 5 mg 02/11/24 17:30 02/11/24 21:06 Melatonin 5 Mg Tablet PO 5 mg HS PRN Administration insomnia Metoprolol Succinate 50 mg 02/10/24 09:00 02/12/24 08:35 Metoprolol Succinate Ext Rel 50 Mg Tabcr PO 50 mg DAILY INGRID Administration Miscellaneous Information 0 each 02/09/24 00:01 02/11/24 08:43 Dextroamphetamine/Amphetamine 20mg Nonform Can Pt Bring From Home??? XX 03/10/24 00:00 Not Given CLARIFY INGRID Non-Formulary Medication 20 mg 02/10/24 09:00 Dextroamphetamine-Amphetamine PO 03/11/24 08:59 TID INGRID Ondansetron HCl 4 mg 02/09/24 09:57 Ondansetron Inj 4 Mg/2 Ml Vial IV PUSH Q4H PRN Nausea Perflutren Lipid Microsphere 0 ml 02/09/24 23:50 Perflutren Lipid Microspheres 1.5 Ml Vial Diluted To 10 Ml Total Volume IV PUSH 02/12/24 23:50 ONCE PRN adequate visualization Protocol Potassium Chloride 40 meq 02/11/24 09:00 02/12/24 08:36 Potassium Chloride 20 Meq Er Tablet PO 40 meq DAILY INGRID Administration Radiology Results: ITS Impressions Head CT 02/09/24 05:28 Impression: No significant abnormality seen. Abdomen/Pelvis CT 02/09/24 05:31 Impression: Suspected bowel wall thickening of the distal rectum with mildly enlarged perirectal lymph nodes. Findings could reflect infectious/inflammatory colitis. Rectal neoplasm of a potential alternative consideration. Correlate clinically. Mild splenomegaly with 1.6 cm nonspecific hypodense splenic mass. 7 mm right upper lobe pulmonary nodule. This is stable as compared to prior chest CT dated 06/02/2023, but is indeterminate overall. Consider additional follow-up CT scan in 6-12 months. Chest X-Ray 02/09/24 06:04 Impression: Central congestive change and mild central pulmonary edema. Chest CTA 02/09/24 07:32 Impression: No evidence of pulmonary embolus, aortic dissection, or aortic aneurysm. Findings compatible with suboptimal inspiratory effort and/or mild atelectatic change. Decreased cystic/bullous change in the upper lobes. Labs Labs: Laboratory Results - last 24 hr 02/11/24 02/11/24 02/12/24 17:02 19:49 05:27 WBC 7.3 RBC 4.77 Hgb 13.4 Hct 41.0 MCV 86.0 MCH 28.1 MCHC 32.7 RDW 16.1 H Plt Count 225 MPV 10.4 Sodium 135 L Potassium 3.6 Chloride 97 L Carbon Dioxide 32 H Anion Gap 6 BUN 18 H Creatinine 0.70 Estim Creat Clear Calc 64 Estimated GFR > 60 Glucose 110 POC Capillary Glucose 113 H 126 H Calcium 9.4 Magnesium 1.8 Total Bilirubin 0.8 AST 26 ALT 16 Alkaline Phosphatase 90 Total Protein 8.0 Albumin 4.0 02/12/24 02/12/24 08:37 10:46 WBC RBC Hgb Hct MCV MCH MCHC RDW Plt Count MPV Sodium Potassium Chloride Carbon Dioxide Anion Gap BUN Creatinine Estim Creat Clear Calc Estimated GFR Glucose POC Capillary Glucose 125 H 114 H Calcium Magnesium Total Bilirubin AST ALT Alkaline Phosphatase Total Protein Albumin Quality VTE Prophylaxis VTE prophylaxis: pharmacologic ordered
[2024-02-12 17:06] LABS: Glucose Point of Care 90 mg/dl (65-105)
[2024-02-12 20:33] LABS: Glucose Point of Care 132 mg/dl (65-105)
[2024-02-13] VITALS: PULSE 80
[2024-02-13 04:00] VITALS: PULSE 71
[2024-02-13] MEDS: HYDROcodone/acetaminophen (*CRX) 5-325 MG TABLET 1 TAB PO (04:37)
[2024-02-13 05:50] LABS: Hemoglobin 13.4 g/dL (12.0-15.0); Mean Corpuscular HGB Conc 31.9 g/dl (32-36); Mean Corpuscular Hemoglobin 27.3 pg (26-34); Mean Corpuscular Volume 85.7 fl (80-100); Mean Platelet Volume 10.2 fl (7.4-10.4); Platelet Count Result 229 k/mm3 (150-375); Red Cell Distribution Width 15.9 % (11.5-14.5); White Blood Count 8.5 K/mm3 (4.5-10.0)
[2024-02-13 06:00] VITALS: BP 133/62; PULSE 72; RESP 20; TEMP 36.8; O2SAT 93
[2024-02-13 06:05] LABS: Alanine Aminotransferase 15 U/L (6-35); Alkaline Phosphatase 93 U/L (38-126); Anion Gap 3 mmol/L (4-12); Aspartate Amino Transferase 27 U/L (14-36); Bilirubin,Total 0.8 mg/dL (0.2-1.3); Blood Urea Nitrogen 19 mg/dL (7-17); Calcium 9.6 mg/dL (8.4-10.2); Carbon Dioxide 34 mmol/L (22-30); Chloride 96 mmol/L (98-107); Estimated CRCL calculation 64 ml/min; Estimated Glomerular Filt Rate > 60; Glucose 115 mg/dL (65-110); Sodium 133 mmol/L (137-145)
[2024-02-13 08:00] VITALS: PULSE 507; O2SAT 93
[2024-02-13 08:19] LABS: Glucose Point of Care 102 mg/dl (65-105)
[2024-02-13 09:34] VITALS: PULSE 50
[2024-02-13] MEDS: EMPAGLIFLOZIN 10 MG TABLET BY MOUTH (09:34)
[2024-02-13] MEDS: ATORVASTATIN 40 MG TABLET PO (09:34)
[2024-02-13] MEDS: POTASSIUM CHLORIDE 20 MEQ ER TABLET 40 MEQ PO (09:34)
[2024-02-13] MEDS: METOPROLOL SUCCINATE EXT REL 50 MG TABCR PO (09:34)
[2024-02-13] MEDS: DESVENLAFAXINE SUCCINATE 50 MG TAB.ER.24H 100 MG PO (09:34)
[2024-02-13] MEDS: FUROSEMIDE 40 MG TABLET PO (09:34)
--- NOTE | 2024-02-13 10:18 | P.DS_ITS ---
DS: Admitting Diagnosis Discharge Date 02/13/2024 Admitting Diagnosis acute respiratory failure with hypoxia/ acute on chronic diastolic heart failure/ non STEMI DS: Discharge Diagnosis Discharge Diagnosis (1) Non-ST elevation (NSTEMI) myocardial infarction: Code(s): I21.4 - Non-ST elevation (NSTEMI) myocardial infarction Status: Acute Assessment and Plan: * catheterization to be scheduled outpatient with Dr. CORONADO (2) Acute and chronic respiratory failure with hypoxia: Code(s): J96.21 - Acute and chronic respiratory failure with hypoxia Status: Acute Assessment and Plan: * patient will will need to be compliant with her CPAP at night (3) Acute on chronic diastolic (congestive) heart failure: Code(s): I50.33 - Acute on chronic diastolic (congestive) heart failure Status: Acute Assessment and Plan: * Lasix p.o. 40 mg b.i.d. 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 Status: Acute Assessment and Plan: SEE ABOVE PLAN #4 (7) Obstructive sleep apnea: Code(s): G47.33 - Obstructive sleep apnea (adult) (pediatric) Status: Acute Assessment and Plan: * resumed home CPAP (8) Bipolar disorder: Code(s): F31.9 - Bipolar disorder, unspecified Status: Acute Assessment and Plan: * resume Adderall, Xanax, Abilify (9) Type 2 diabetes mellitus: Code(s): E11.9 - Type 2 diabetes mellitus without complications Status: Acute Assessment and Plan: * resume home medications Farxiga and GLP 1 Plan Disposition: discharged to home DS: Summary Hospital Course Reason for hospitalization: acute respiratory failure with hypoxia/ acute on chronic diastolic heart failure/ non STEMI Hospital Course: patient was a 68-year-old female who was admitted to the medical unit for further evaluation of acute respiratory failure with hypoxia intermittent confusion and CHF exacerbation. Patient was found on admission to have elevated cardiac enzymes which peaked and began to trend down as well exacerbation of her diastolic heart failure and was initiated on IV Lasix with a consult to Cardiology. Patient's echocardiogram showed Acute on chronic diastolic heart failure; LVEF 55-60% by echo in 05/2023 with BNP elevated at 6700 and cardiac enzyme0.329, 0.275, 0.142; most likely secondary to acute on chronic heart failure versus ischemia. initially was plans patient to go ahead and a inpatient R/L heart catheterization for further evaluation of ischemia but was unable to be performed cardiology did sign off to schedule an outpatient since patient had no breath and denied chest pain during her entire stay however due to patient's constant dyspnea with activity they reported they would call to schedule an outpatient with Dr. Coronado. patient's altered mental status improved with the use of oxygen or CPAP machine patient reported she is noncompliant and has not been wearing it for some time this was likely patient's cause altered mental status and hypoxia prior to. she also had reported some diarrhea patient has history of ulcerative proctitis and was seen by GI, CT ABD showed bowel wall thickening of the distal rectum mildly enlarged perirectal lymph nodes. Patient was recently transitioned to Stelara injections outpatient and GI evaluated and reported to continue will follow-up outpatient. patient had overall improvement to symptoms and was now euvolemic she denied any chest pain and shortness of breath had improved was on room air and was compliant with her CPAP at night. she appeared in no acute distress and denied any complaints at time of discharge she was discharged home on oral Lasix 40 mg b.i.d. with plan for follow-up cardiac catheterization outpatient educated on the importance of continued compliance with CPAP machine. Patient acknowledged and agreed with discharge plan she was discharged home with family. Status at Discharge Functional status at discharge: independent ambulation Overall status at discharge: patient is back to baseline Time Spent with Patient Time attestation: Total time spent providing and/or coordinating discharge services: Time spent: Greater than 30 minutes Exam Narrative: * GENERAL: Alert and oriented x 3. No acute distress. * EYES: PERRLA. * HEENT: Moist mucous membranes. * LUNGS: Clear to auscultation bilaterally. No accessory muscle use. * CARDIOVASCULAR: Regular rate and rhythm. No murmur. No JVD. S1-S2 * ABDOMEN: Soft, non tenderness and non-distended. No palpable masses. * EXTREMITIES: No edema. Pain with movement to bilateral shoulders * SKIN: No rashes or lesions. Skin warm, dry. * NEUROLOGIC: No focal neurological deficits. CN II-XII grossly intact * PSYCHIATRIC: Appropriate mood and affect. Good judgement and insight. DS: Data Data Completed and Pending Labs on day of discharge: Labs from last 24 hours 02/13/24 02/13/24 02/12/24 08:10 05:40 20:30 WBC 8.5 RBC 4.90 Hgb 13.4 Hct 42.0 MCV 85.7 MCH 27.3 MCHC 31.9 L RDW 15.9 H Plt Count 229 MPV 10.2 Sodium 133 L Potassium 4.0 Chloride 96 L Carbon Dioxide 34 H Anion Gap 3 L BUN 19 H Creatinine 0.70 Estim Creat Clear Calc 64 Estimated GFR > 60 Glucose 115 H POC Capillary Glucose 102 132 H Calcium 9.6 Magnesium 2.0 Total Bilirubin 0.8 AST 27 ALT 15 Alkaline Phosphatase 93 Total Protein 8.0 Albumin 4.0 02/12/24 02/12/24 16:58 10:46 WBC RBC Hgb Hct MCV MCH MCHC RDW Plt Count MPV Sodium Potassium Chloride Carbon Dioxide Anion Gap BUN Creatinine Estim Creat Clear Calc Estimated GFR Glucose POC Capillary Glucose 90 114 H Calcium Magnesium Total Bilirubin AST ALT Alkaline Phosphatase Total Protein Albumin Preliminary micro results at discharge 02/09/24 04:28 Blood Culture - Preliminary Blood 02/09/24 04:30 Blood Culture - Preliminary Blood Imaging Radiologist's impression: Radiology Results: ITS Impressions Head CT 02/09/24 05:28 Impression: No significant abnormality seen. Abdomen/Pelvis CT 02/09/24 05:31 Impression: Suspected bowel wall thickening of the distal rectum with mildly enlarged perirectal lymph nodes. Findings could reflect infectious/inflammatory colitis. Rectal neoplasm of a potential alternative consideration. Correlate clinically. Mild splenomegaly with 1.6 cm nonspecific hypodense splenic mass. 7 mm right upper lobe pulmonary nodule. This is stable as compared to prior chest CT dated 06/02/2023, but is indeterminate overall. Consider additional follow-up CT scan in 6-12 months. Chest X-Ray 02/09/24 06:04 Impression: Central congestive change and mild central pulmonary edema. Chest CTA 02/09/24 07:32 Impression: No evidence of pulmonary embolus, aortic dissection, or aortic aneurysm. Findings compatible with suboptimal inspiratory effort and/or mild atelectatic change. Decreased cystic/bullous change in the upper lobes. Discharge Plan Discharge Attending physician on discharge: Darrion Levin Consulting providers: Puneet Schmidt; Malachi Aviles Discharging Clinician: Melany Alvarez Anticipated Discharge Date/Time: 02/13/24 10:08 Patient Disposition: Home, Self-Care Activity: may shower and as tolerated Diet: heart healthy and low sodium Discharge Instructions: You are being discharged to home after treatment for acute on chronic diastolic heart failure * cardiology will call to schedule an outpatient R/L heart catheterization for evaluations of your coronary arteries * I encouraged continued use of her CPAP at night * I have prescribed you on 40 Lasix b.i.d. please take as prescribed * monitor oral intake and keep to a 1.5 L max encourage a low-sodium diet * I also started you on 81 mg aspirin * encourage heart healthy diet and an increase in activity * monitor weight if you increase 5-10 more lb in 1 week with edema to seek medical attention * follow-up with primary care physician within 4 weeks How can you care for yourself at home? ? Keep track of any new symptoms or changes in your symptoms. ? Rest until you feel better. ? Be safe with medicines. Take your medicines exactly as prescribed. Call your doctor if you think you are having a problem with your medicine. ? Do not drive after taking a prescription pain medicine. ? Ensure to follow-up with primary care physician as indicated and provide updated medication list provided to you at discharge. When should you call for help? Call 911 anytime you think you may need emergency care. For example, call if: ? You passed out (lost consciousness). Call your doctor now or seek immediate medical care if: ? You have new symptoms like fever, difficulty breathing, Chest pain, vomiting, or rash. ? You have new or different pain. ? You are confused and are having trouble thinking clearly. ? Your symptoms are getting worse. Watch closely for changes in your health, and be sure to contact your doctor if: ? You do not get better as expected. Thank you for allowing [facility] and their care team to assist in your care Patient Instructions: Antibiotic Form, Heart Failure (GEN), Sleep Apnea (GEN), CPAP (GEN) Patient Language: Spanish Stand Alone Forms: General Discharge Information Follow-up/Referrals: Vadim Coronado MD [Physician] - Keep Reg. Scheduled Appt. (They will call to schedule an outpatient Cardiac Catheterization) Discharge Medications: New furosemide 40 mg Tablet 40 mg PO BID Qty: 60 0RF potassium chloride [K-Tab] 20 mEq Tablet Extended Release 40 meq PO DAILY Qty: 30 0RF aspirin 81 mg capsule 81 mg PO DAILY Qty: 30 0RF Continued atorvastatin [Lipitor] 40 mg tablet 40 mg PO DAILY metoprolol succinate 50 mg tablet extended release 24 hr 50 mg PO DAILY meloxicam 15 mg tablet 15 mg PO DAILY aripiprazole [Abilify] 30 mg Tablet 30 mg PO HS PRN (Reason: Insomnia) desvenlafaxine succinate [Pristiq] 100 mg Tablet Extended Release 24 Hr 100 mg PO DAILY Rx Instructions: Bottle unopened dapagliflozin propanediol [Farxiga] 10 mg tablet 5 mg PO DAILY cyclobenzaprine 10 mg tablet 10 mg PO TID PRN (Reason: Pain ) dextroamphetamine-amphetamine 20 mg tablet 20 mg PO TID Stelara 45 mg/0.5 mL solution 45 mg SUBCUT DAILY acetaminophen 500 mg capsule 1,000 mg PO Q4-6H PRN (Reason: mild pain (scale score 1-4)) (DME) Medefy G7 Sensor Device See Rx Instructions .Route Qty: 9 3RF Rx Instructions: As directed (DME) pen needle, diabetic [BD Ultra-Fine Mer Pen Needle] 32 gauge x 5/32 needle See Rx Instructions .ROUTE .MEDSUPPLY Qty: 100 0RF Rx Instructions: use four to six times daily Ozempic 2 mg/dose (8 mg/3 mL) pen injector 2 mg subcut WEEKLY Qty: 9 1RF Rx Instructions: Pt takes on Saturdays Discontinued mesalamine 1,000 mg suppository See Rx Instructions .ROUTE .COMPLEX Qty: 60 2RF Dose Instruction: INSERT 1 SUPPOSITORY RECTALLY TWICE DAILY DIRECTED Rx Instructions: INSERT 1 SUPPOSITORY RECTALLY TWICE DAILY DIRECTED Date of admission: 02/10/24 16:14 Primary Care Provider: Marni,Laura Sharp Admitting Provider: Darrion Levin Attending physician on admission: Melany Alvarez Condition: Stable Quality VTE Prophylaxis VTE prophylaxis: pharmacologic ordered -Patient's previous records reviewed on admission -ER notes reviewed in detail on admission -discussed all findings and current treatment plan with patient/Family/POA -Consultations reviewed for recommendations -Patient's disposition for safe discharge discussed with geriatric case manager Dictation performed by [employer] direct speech recognition software, therefore innovation manager variants and typographical errors may occur. Hospitalist MIPS Heart Failure (Exclusion) Patient has history of Heart Transplant or Left Ventricular Assistive Device?: No IF YES, STOP HERE Heart Failure (Qualifier) Patient has current or prior documentation of LVEF less than or equal to 40%, or mod/servere depressed LVSF?: No IF NO, STOP HERE
[2024-02-13 11:40] LABS: Glucose Point of Care 271 mg/dl (65-105)
[2024-02-13] MEDS: INSULIN ASPART (*BKC) 100 UNITS/ML SUB-Q (11:51)
[2024-02-13 12:00] VITALS: PULSE 78
== END 2024-02-13 13:03 | disposition home or self-care (01) | DRG 280 ==
LOC: ANHED 04:56 → ANHIMU 10:32 → ANH3MED 21:04
PROVIDERS: Nurse Practitioner Gerontology; Admitting Provider Internal Medicine; Emergency Provider Emergency Medicine; PCP Family Medicine; Visit Provider Nurse Practitioner Family
DX: I11.0 Hypertensive heart disease with heart failure (principal); I50.33 Acute on chronic diastolic (congestive) heart failure; I21.4 Non-ST elevation (NSTEMI) myocardial infarction; J96.21 Acute and chronic respiratory failure with hypoxia; I24.89 Other forms of acute ischemic heart disease; E87.1 Hypo-osmolality and hyponatremia; K51.20 Ulcerative (chronic) proctitis without complications; R41.82 Altered mental status, unspecified; G47.33 Obstructive sleep apnea (adult) (pediatric); F31.9 Bipolar disorder, unspecified; E11.9 Type 2 diabetes mellitus without complications; J44.9 Chronic obstructive pulmonary disease, unspecified; E78.5 Hyperlipidemia, unspecified; M19.90 Unspecified osteoarthritis, unspecified site; E86.0 Dehydration; T43.625A Adverse effect of amphetamines, initial encounter; R16.1 Splenomegaly, not elsewhere classified; R91.1 Solitary pulmonary nodule; Z91.198 Patient's noncompliance with other medical treatment and regimen for other reason; Z96.653 Presence of artificial knee joint, bilateral; Z90.710 Acquired absence of both cervix and uterus; Z87.891 Personal history of nicotine dependence
CPT/HCPCS: 36415; 36600; 70450; 71045; 71275; 74177; 80048; 80053; 80061; 80307; 81001; 82077; 82550; 82805; 82948; 83036; 83605; 83690; 83735; 83880; 84100; 84443; 84484; 85018; 85025; 85027; 85610; 85730; 87040; 87637; 93005; 93306; 96361; 96366; 96367; 96372; 96375; 97161; 97165; 99285; A9270; G0378; J1650; J1815; J1940; J2543; J3475; J7030; Q9967

== ENCOUNTER 2024-02-15 17:00 | Outpatient (CLI) | payer MEDICARE, SELFPAY ==
--- NOTE | ~2024-02-15 | MR_ITS ---
EXAMINATION: MR shoulder LT wo con DATE: 02/15/2024 17:49 INDICATION: Left shoulder pain TECHNIQUE: Magnetic resonance imaging (MRI) of the left shoulder was performed without intravenous co ntrast. Sequences included axial PD-weighted FS FSE, coronal oblique PD-weighted FS FSE, coronal obli que T2-weighted FS FSE, sagittal PD-weighted FS FSE, and sagittal T1-weighted SE. COMPARISON: 04/08/2011 FINDINGS: Coracoacromial arch: The acromion undersurface is curved in morphology (type II). Moderate sized anterior subacromial spur at the insertion of the otherwise normal coracoacromial ligament. Mild acromioclavicular osteoarthri tis. Rotator cuff: Chronic full-thickness tear of the supraspinatus and anterior third of the infraspinatus tendon exten ding along the critical zone with small amount of residual infiltrate endometrial reattached to the g reater tuberosity. The supraspinatus tear margin is retracted 4 cm medially with small amount of hete rotopic ossification along the retracted tear margin and severe fatty atrophy of the muscle belly con sistent with chronic tear. There is severe tendinopathy of the remaining infraspinatus tendon and mil d tendinopathy without tear of the teres minor tendon. The tear also extends anterior across the rota tor cuff interval to involve a small portion of the cephalad aspect of the subscapularis tendon. Ther e is moderate subscapularis tendinopathy. There is mild fatty atrophy of the cephalad third of the alegre bscapularis muscle belly. Biceps tendon, glenoid labrum and glenohumeral cartilage: Moderate tendinopathy and longitudinal split tear of the long head biceps tendon centered at the junc tion of the intra-articular portion of the tendon. There is associated mild bicipital tenosynovitis. Is degenerative tearing at the anterosuperior glenoid labrum. Additional degeneration of the inferior labrum which is been largely replaced by marginal osteophytes along the rim of the glenoid. There is mild partial-thickness cartilage loss with smooth chondral surface along the inferomedial aspect of the humeral head along the posterior and superior aspect of the glenoid. There is a region of subarti cular cystlike change at the anterior glenoid. Fluid: Physiologic amount of fluid in the glenohumeral joint which extends through the full-thickness rotato r cuff tear. There is mild synovitis at the axillary recess as well as the subacromial/subdeltoid bur sa. No loose osteochondral bodies. Bones: Normal marrow signal with no fracture or pathologic marrow replacing process. IMPRESSION: 1. Chronic full-thickness rotator cuff tear along the entire supraspinatus tendon and small portion o f the immediately adjacent subscapularis and infraspinatus tendons. 2. Mild glenohumeral osteoarthritis with degeneration of the inferior and anterosuperior labrum. 3. Mild bicipital tenosynovitis with moderate tendinopathy and longitudinal split tear at the junctio n of the intra-articular and extra articular portions of the long head biceps tendon. Reviewed, dictated and finalized at location B. R [facility] IMPRESSION: 1. Chronic full-thickness rotator cuff tear along the entire supraspinatus tend on and small portion of the immediately adjacent subscapularis and infraspinatu s tendons. 2. Mild glenohumeral osteoarthritis with degeneration of the inferior and anter osuperior labrum. 3. Mild bicipital tenosynovitis with moderate tendinopathy and longitudinal spl it tear at the junction of the intra-articular and extra articular portions of the long head biceps tendon.
== END 2024-02-15 17:01 | disposition home or self-care (01) ==
PROVIDERS: PCP Family Medicine
DX: S46.012A Strain of muscle(s) and tendon(s) of the rotator cuff of left shoulder, initial encounter (principal); X58.XXXA Exposure to other specified factors, initial encounter; S46.011A Strain of muscle(s) and tendon(s) of the rotator cuff of right shoulder, initial encounter; M19.012 Primary osteoarthritis, left shoulder; M75.22 Bicipital tendinitis, left shoulder
CPT/HCPCS: 73221

== ENCOUNTER 2024-03-01 00:10 | Day surgery (SDC) | payer MEDICARE, SELFPAY ==
[2024-02-29 16:58] VITALS: BMI 26.9
[2024-03-01] VITALS (16 sets, daily range): BP systolic 94–124; BP diastolic 49–85; PULSE 88–100; RESP 16–20; TEMP 36.6–37.1; O2SAT 92–98; BMI 26.2
[2024-03-01 07:52] LABS: Basophils Percent Auto 0.5 % (0.2-1.2); Eosinophils Absolute Auto 0.3 K/mm3 (0-0.3); Eosinophils Percent Auto 4.5 % (0-4.4); Hematocrit 41.3 % (37.0-47.0); Hemoglobin 13.2 g/dL (12.0-15.0); Immature Granulocyte Absolute 0.02 K/mm3 (0.00-0.031); Immature Granulocyte Percent A 0.3 % (0-0.5); Lymphocytes Absolute Auto 2.49 K/mm3 (0.9-3.2); Lymphocytes Percent Auto 33.7 % (18.3-44.2); Mean Corpuscular Hemoglobin 27.4 pg (26-34); Mean Corpuscular Volume 85.7 fl (80-100); Mean Platelet Volume 10.9 fl (7.4-10.4); Monocytes Absolute Auto 0.5 K/mm3 (0.1-0.6); Monocytes Percent Auto 7.3 % (2.6-8.5); Neutrophils Percent Auto 53.7 % (45.5-73.1); Platelet Count Result 171 k/mm3 (150-375); Red Blood Count 4.82 M/mm3 (4.2-5.4); Red Cell Distribution Width 15.9 % (11.5-14.5); White Blood Count 7.4 K/mm3 (4.5-10.0)
[2024-03-01 07:57] LABS: Glucose Point of Care 127 mg/dl (65-105)
[2024-03-01 08:06] LABS: Anion Gap 9 mmol/L (4-12); Blood Urea Nitrogen 18 mg/dL (7-17); Calcium 9.5 mg/dL (8.4-10.2); Carbon Dioxide 24 mmol/L (22-30); Chloride 106 mmol/L (98-107); Estimated CRCL calculation 85 ml/min; Estimated Glomerular Filt Rate > 60; Glucose 122 mg/dL (65-110); Potassium 4.5 mmol/L (3.4-5.0); Sodium 139 mmol/L (137-145)
--- NOTE | 2024-03-01 09:47 | WPDHPUPDATE1 ---
History and Physical Update Update Date/Time: 03/01/24 09:47 History and Physical has been reviewed, including an updated exam of the patient. There are NO changes in the patient's condition. Risks, benefits, and alternatives have been discussed and questions answered. Patient agrees to proceed with procedure.
--- NOTE | 2024-03-01 09:47 | WPDMODSED ---
Moderate Sedation Note-Pt Data Patient Data Diagnosis: Coronary artery disease Present Complaint: Coronary artery disease Procedure to be performed/Plan: Coronary angiography, left heart cath, +/- PCI Allergies Allergy/AdvReac Type Severity Reaction Status Date / Time codeine Allergy Intermediate Itching Verified 02/29/24 16:48 sulfamethoxazole (From Allergy Joint Pain Verified 02/29/24 16:48 Bactrim) triamcinolone Allergy Joint Pain Verified 02/29/24 16:48 trimethoprim (From Bactrim) Allergy Joint Pain Verified 02/29/24 16:48 Home Medications ?Medication ?Instructions ?Recorded ?Confirmed ?Type atorvastatin 40 mg tablet (Lipitor) 40 mg PO QPM 12/04/19 02/29/24 History metoprolol succinate 50 mg 50 mg PO HS 12/04/19 02/29/24 History tablet,extended release 24 hr blood-glucose sensor (Route4Mecom G7 #9 ea 11/10/22 02/29/24 Rx Sensor device) aripiprazole 30 mg tablet (Abilify) 30 mg PO HS 06/02/23 02/29/24 History dapagliflozin propanediol 10 mg 5 mg PO DAILY 06/02/23 02/29/24 History tablet (Farxiga) desvenlafaxine succinate 100 mg 100 mg PO DAILY 06/02/23 02/29/24 History tablet,extended release 24 hr (Pristiq) pen needle, diabetic 32 gauge x #100 ea 09/27/23 02/29/24 Rx 5/32 (BD Ultra-Fine Mer Pen Needle) acetaminophen 500 mg capsule 1,000 mg PO Q4-6H PRN mild pain 02/09/24 02/29/24 History (scale score 1-4) dextroamphetamine-amphetamine 20 20 mg PO DAILY 02/09/24 02/29/24 History mg tablet ustekinumab 45 mg/0.5 mL 45 mg subcut [id number] 02/09/24 02/29/24 History subcutaneous solution (Stelara) aspirin 81 mg capsule 81 mg PO DAILY #30 caps 02/13/24 02/29/24 Rx potassium chloride 20 mEq 40 meq (2 x 20 mEq) PO DAILY #30 02/13/24 02/29/24 Rx tablet,extended release (K-Tab) tabs semaglutide 1 mg/dose (4 mg/3 mL) 1 mg (0.75 mL) subcut WEEKLY #9 mL 02/28/24 02/29/24 Rx subcutaneous pen injector furosemide 40 mg tablet 40 mg PO BID PRN edema 02/29/24 02/29/24 History hydrocortisone 2.5 % topical cream 1 applic topical .BID PRN ITCH 02/29/24 02/29/24 History mesalamine 1.2 gram tablet,delayed 1.2 g PO Q24H 02/29/24 02/29/24 History release Current Medications: Active Medications Sodium Chloride (Normal Saline Iv) 500 mls @ 100 mls/hr IV CONT .Q5H [facility] Sedation/Anesthesia: No previous sedation/anesthesia problems (including family history). [facility] Past Medical History Medical History Type 2 diabetes mellitus Bipolar disorder Long-term use of immunosuppressant medication Vitamin D deficiency Obesity Mucus in stool Fecal urgency High risk medication use Hepatic steatosis Obstructive sleep apnea Esophageal stricture Ulcerative proctitis Hepatomegaly Fecal incontinence Hypertension Post-menopausal Tongue, fissured Hyperlipidemia Psychiatric care Nasal septal perforation Anxiety Depression Arthritis History of emphysema COPD (chronic obstructive pulmonary disease) Surgical History Surgical History History of bilateral knee replacement History of section History of hysterectomy History of tonsillectomy Family History Family History Other Renal cell cancer Social History Social History Smoking packs per day: 1.5 Smoking cigarettes per day: 30.0 Years smoked: 45 Smoking pack-years: 67.50 Smoking status: Former smoker Tobacco type: e-cigarettes/vaping Second hand tobacco smoke exposure: Yes Smoking end date: 02/20/09 Additional smoking assessment comments: Still vapes, no nicotine Alcohol intake: never Substance use: never Substance use type: does not use Do You Feel Safe in your Home?: Yes Lack of Transportation: No Lack of Food: Never True Current Housing: I Have Housing Concerned About Future Housing: No Difficulty Paying Gas/Electric Bills: No Difficulty Paying for Meds: No Currently Unemployed: No Education: Associate Degree Difficulty w/ Childcare or Family Care: No Living arrangements: with family Additional living arrangements comments: AND GRANDDAUGHTER Gender identity (if verbalized by the patient): Female Spiritual care concerns: No Mod Sed Physical Exam Physical Exam Pre Procedural Exam: Normal: Appearance, Lungs, Heart Rate, Heart Rhythm, Neuro Exam, Extremities and Skin Hours since solid foods: 12 Hours since liquid intake: 8 Mallampati Classification: class III Internal Medicine - PN: Obj Da Vital Signs Vital Signs: Vital Signs - 24 hr 03/01/24 07:24 Temperature 37.1 C Pulse Rate 90 Respiratory Rate 16 Blood Pressure 119/58 L Pulse Oximetry 95 Oxygen Delivery Room Air Meds/Results Medications: Active Medications Generic Name Dose Route Start Last Admin Trade Name Freq PRN Reason Stop Dose Admin Sodium Chloride 500 mls @ 100 mls/hr 03/01/24 07:00 Normal Saline Iv IV CONT .Q5H [facility] 03/01/24 07:23 03/01/24 07:23 Labs: Laboratory Results - last 24 hr 03/01/24 03/01/24 07:23 07:46 WBC 7.4 RBC 4.82 Hgb 13.2 Hct 41.3 MCV 85.7 MCH 27.4 MCHC 32.0 RDW 15.9 H Plt Count 171 MPV 10.9 H Immature Gran % (Auto) 0.3 Neut % (Auto) 53.7 Lymph % (Auto) 33.7 [place] % (Auto) 7.3 Eos % (Auto) 4.5 H Baso % (Auto) 0.5 Lymph # (Auto) 2.49 [place] # (Auto) 0.5 Eos # (Auto) 0.3 Baso # (Auto) 0.0 Abs Immat Gran (auto) 0.02 Absolute Neuts (auto) 4.0 Absolute Nucleated RBC 0.000 Nucleated RBC % 0.0 Sodium 139 Potassium 4.5 Chloride 106 Carbon Dioxide 24 Anion Gap 9 BUN 18 H Creatinine 0.51 L Estim Creat Clear Calc 85 Estimated GFR > 60 Glucose 122 H POC Capillary Glucose 127 H Calcium 9.5 ASA Classification/Sedation ASA Classification/Sedation ASA Class: II Emergent: No Risks: Risks, benefits and alternatives explained and patient/family accepted plan for sedation. Patient re-evaluated immediately prior to sedation.
--- NOTE | 2024-03-01 09:49 | WPDCARDPROC ---
Cardiac Cath Procedure Note Date of procedure:: 03/01/24 Performing physician:: CATHETERIZATION LABORATORY REPORT Procedure Date: 03/01/2024 Office Services Clerk: Tomy Odonnell M.D., [facility]? Referring Physician: Tara Ayala M.D. ? Anesthesia: Versed and Fentanyl were ordered and given in my presence at 09:21, procedure ended at 09:41. Supervision of nurse monitored moderate sedation with Versed and Fentanyl was provided for 20 minutes. Total of Versed 1mg and Fentanyl 50mcg were administered by the Senior Clerk RN Melany Mar. Pre-op Diagnosis: Coronary artery disease Post-op Diagnosis: 1. Mild non-obstructive coronary artery disease 2. Left ventricular end-diastolic pressure is 18mmHg Procedure(s): 1. Moderate sedation 2. Ultrasound-guided access of the right radial artery 3. Coronary angiography 4. Left heart cath Access Site: Right radial artery Brief History and Clinical Indications: Patient is a 68 year old female who is referred for [facility] for recent hospitalization for acute on chronic heart failure with preserved LVEF and elevated troponins. All risks, benefits and alternatives to left heart catheterization with or without percutaneous coronary intervention was discussed at length with the patient. Risk of complications including but not limited to bleeding, infection, arrhythmia, stroke, worsening kidney function, blood loss, groin hematoma, limb loss, emergency coronary artery bypass grafting, and even were discussed with the patient and all questions were answered. The patient understood and wished to proceed. Time out called, patient name, date of , medical record number, allergies, procedure performed, identify Office Services Clerk, patient and staff member concurred with accurate data, procedure carried on. Findings: LEFT HEART CATHETERIZATION FINDINGS: 1. Left main: The left main coronary artery is widely patent without any significant obstructive disease. 2. Left anterior descending: The proximal LAD has mild disease, otherwise, remainder of the LAD and the diagonal branches have mild luminal irregularities without any significant obstructive angiographic disease. 3. Left circumflex: The left circumflex artery and the main marginal branches have mild luminal irregularities without any significant obstructive angiographic disease. 4. Right coronary artery: The RCA is the dominant vessel. The mid portion has mild disease. No significant obstructive angiographic disease. 5. Left ventricle: A. End-diastolic pressure 18 mmHg. B. LV gram deferred. C. No significant gradient across aortic valve on catheter pullback. Description of Procedure: Informed consent signed and placed in the chart. Patient transferred to laborer fryer farm room. Prepped and draped in usual sterile fashion. 2% lidocaine injected subcutaneously in right wrist area. 22-gauge venipuncture catheter used to access the right radial artery under ultrasound guidance. 6-FR slender sheath placed in right radial artery. Nitroglycerine and Verapamil were given intraarterial through the sheath. Versacore wire advanced under fluoroscopy 5F Tig 4 diagnostic catheter engaged Right Coronary Artery. 5F FL 3.5 diagnostic catheter crossed aortic valve to obtain LVEDP, LV angiogram deferred. 5F FL 3.5 diagnostic catheter engaged Left Main Coronary Artery. Multiple orthogonal angiogram obtained and reviewed Hemostasis was achieved by application of TR band. Disposition: Home Plan: The patient will be monitored in the recovery area. Continue aggressive medical therapy and risk factor modification. ? Tomy Odonnell M.D. Interventional Cardiology
[2024-03-01] MEDS: SODIUM CHLORIDE 0.9% IV 1,000 ML 125 ML IV CONT (10:35)
--- OUTSIDE RECORDS SUMMARY | 2024-03-08 00:41 | XMS_ITS | Encounter Summary ---
Author Organization [facility] Address [address] [place] [address]. [place] [address] [place] [address] Care Team Providers Care Consulting Database Administrator Name Role Phone Laura Grider MD Primary Care Provider [phone] Reason for Visit * Auth/Cert Specialty Diagnoses / Procedures Referred By Latoya erazo Referred To Contact Diagnoses H25.12 Procedures LEFT CATARACT REMOVAL WITH IOL IMPLANT Referral ID Status Reason Start Date Expiration Date Visits Re quested Visits Authorized [id number] 1 1 Encounter Details Date Type Department Care Team (Late st Contact Info) Description 10/31/2018 9:03 AM CDT Anesthesia Event [facility] [address] [place] [address] Nimisha Nuno CRNA [address] [place] [address] Kerline Hill CRNA [address] [place], [place] [id number] Anesthesia Record Procedure Summary Procedure Name Responsible Anesthesiologist Anesthesia Start Time Anesthesia Stop Time LEFT CATARACT REMOVAL WITH IOL IMPLANT (toric) (Left: Eye) Nimisha Nuno CRNA 10/31/18 0903 10/31/18 0922 Events Date Time Event Comment 10/31/2018 0842 0842 AN SUPERINTENDENT MENAGERIE Prepped 0903 An Start Patient ID and consent checked and patient reassessed. 0903 An Start Data 0903 An Start Data 0903 Anesthesia Ready 0922 An Stop 0922 an stop data 0923 Post Anesthetic Care Handoff I completed my handoff to the receiving nurse during which we: 1. Identified the patient 2. Identified the responsible provider 3. Reviewed the pertinent medical history 4. Discussed the surgical course 5. Reviewed intra-op anesthesia management and issues during anesthesia 6. Set expectations for post-procedure period 7. Allowed opportunity for questions and acknowledgement of understanding. Meds Name Total midazolam (VERSED) 5 mg/mL injection 5 m g lidocaine (PF) (XYLOCAINE) 1% injection 10 mg * Agents No agents on file. * Blood No blood administrations on file. Lines, Drains, and Airways Type Details Placement Removal Surgical/Incision 10/31/18; 917; Surgical Wound; Eye; Left; SHIELD EYE ADULT (x1), TAPE PAPER 1 (x1); 10/31/18; 1149 10/31/18917 by Iwona Mayen RN 10/31/18 114 by Automatic Discharge Provider documented in this encounter Social History Tobacco Use Types Packs/Day Years Used Date Smoking Tobacco: Former Cigarettes 1.5 45 0 08/22/1966 - 08/23/2011 Smokeless Tobacco: Current Alcohol Use Standard Drinks/Week Comments No 0 (1 standard drink = 0.6 oz pur e alcohol) AUDIT-C Answer Date Recorded Frequency of Alcohol Consumption Never 08/24/2018 Average Number of Drinks Not on file 019 Frequency of Binge Drinking Not on file 06/2018 Comments No Sex and Gender Information Value Date Recorded Sex Assigned at Not on file Legal Sex Female 12:20 PM CDT Gender Identity Not on file Sexual Orientation Not on file documented as of this encounter OR Notes * Anesthesia Postprocedure Evaluation - Nimisha Nuno CRNA - 10/31/2018 9:23 AM CDT Anesthesia Post-op Note Yaneth Duarte Procedure(s): LEFT CATARACT REMOVAL WITH IOL IMPLANT (toric) (Left Eye) Anesthesia type: MAC Vitals: 10/31/18743 BP: 123/55 Vitals: 10/31/18743 Pulse: 78 Vitals: 10/31/18743 Resp: 18 Vitals: 10/31/18743 Temp: 36.3 ??C Vitals: 10/31/18743 SpO2: 96% Patient Location: PACU Level of Consciousness: awake, alert and oriented Pain Management: adequate analgesia Airway Patency: patent Respiratory Status: acceptable Cardiovascular Status: acceptable Post-Op Nausea: none Postoperative Hydration: euvolemic Complications: no anesthesia complication * Anesthesia Preprocedure Evaluation - Nimisha Nuno CRNA - 10/29/2018 8:50 AM CDT Anesthesia ROS/MED History Reviewed: Patient summary , Nursing notes , Family history anesthesia, Anesthesia history , Medications Pre-Anesthetic State: alert, awake and responds appropriately Pulmonary neg pulmonary ROS ROS comment: Former smoker, quit 2011 Cardiovascular Exercise tolerance:good (+) arrhythmia, hyperlipidemia Neuro/Psych (+) neuromuscular disease, depression, psychiatric problem, (anxiety) GI/Hepatic/Renal neg GI/hepatic/renal ROS Endo/Other (+) diabetes mellitus, obese Physical Evaluation Airway Mallampati: II TM Distance: >3 FB Neck ROM: normal Dental Pulmonary Breath sounds clear to auscultation Cardiovascular Rhythm: regular Rate: normal Anesthesia Plan ASA 2 Inhalational Induction Anesthesia type: MAC Informed Consent Anesthetic plan and risks discussed with patient of whom consent was obtained. Use of blood products discussed with patient of whom consent was obtained. . documented in this encounter Plan of Treatment Not on file documented as of this encounter Visit Diagnoses Not on filedocumented in this encounter Administered Medications Inactive Administered Medications - up to 3 most recent administrations Medication Order MAR Action Action Date Dose Rate Site lidocaine (PF) (XYLOCAINE) 1 % injection Other, PRN, Starting on Mon10/31/18 at 0902, Until Mon10/31/18 at 921, Anesthesia Intra-Op Given 10/31/2018 9:02 AM CDT 10 mg midazolam (VERSED) injection Nasal, PRN, Starting on Mon10/31/18 at 0902, Until Mon10/31/18 at 09, Anesthesia Intra-Op Given 10/31/2018 9:02 AM CDT 5 mg documented in this encounter Care Teams Consulting Database Administrator Relationship Specialty Start Date End Date Laura Grider MD [address] [place] [address] [place] [address] PCP - General FAMILY PRACTICE 08/24/18 documented as of this encounter
--- OUTSIDE RECORDS SUMMARY | 2024-03-08 00:41 | XMS_ITS | Encounter Summary ---
Author Organization [facility] Address [address] [place] [address]. [place] [address] [place] [address] Care Team Providers Care Line Maintenance Name Role Phone Laura Grider MD Primary Care Provider [phone] Reason for Visit * Auth/Cert Specialty Diagnoses / Procedures Referred By Latoya t Referred To Contact Diagnoses H25.12 Procedures LEFT CATARACT REMOVAL WITH IOL IMPLANT Referral ID Status Reason Start Date Expiration Date Visits Re quested Visits Authorized [id number] 1 1 Encounter Details Date Type Department Care Team (Latest Contact Info) Description 10/31/2018 7:18 AM CDT - 10/31/2018 9:49 AM CDT Hospital Encounter [facility] [address] [place] [address] Jose Lorenzana MD [address] [facility] [address] [place] [address] Discharge Disposition: Home or Self Care (Routine Discharge) Social History Tobacco Use Types Packs/Day Years Used Date Smoking Tobacco: Former Cigarettes 1.5 45 0 08/22/1966 - 08/23/2011 Smokeless Tobacco: Current Tobacco Cessation:Counseling Given: No Alcohol Use Standard Drinks/Week Comments No 0 [...] on file documented as of this encounter Last Filed Vital Signs Vital Sign Reading Time Taken Comments Blood Pressure 124/71 10/31/2018 9:00 AM CDT Pulse 73 10/31/2018 9:00 AM CDT Temperature 36.3 ??C (97.4 ??F) 10/31/2018 7:44 AM CD T Respiratory Rate 18 10/31/2018 7:44 AM CDT Oxygen Saturation 97% 10/31/2018 9:00 AM CDT Inhaled Oxygen Concentration - - Weight 84.8 kg (187 lb) 10/26/2018 1:52 PM CDT Height 170.2 cm (5' 7 ) 10/26/2018 1:52 PM CDT Body Mass Index 29.29 10/26/2018 1:52 PM CDT documented in this encounter Discharge Instructions * Attachments The following attachments cannot be sent through Care Everywhere. * Cataract Removal Discharge Instructions (Panamanian) documented in this encounter Medications at Time of Discharge alprazolam 2 MG tablet Take 2 mg by mouth nightly as needed. amphetamine-dextro amphetamine 20 MG tablet Take 20 mg by mouth 2 (two) times daily. aripiprazole 30 MG Tab tablet Take 1 tablet by mouth daily. atorvastatin 40 MG tablet Take 40 mg by mouth nightly at bedtime. desvenlafaxine ER 100 MG TABLET SR 24 HR 24 hr tabletIndications: Depression Take 100 mg by mouth nightly at bedtime. doxycycline monohydrate 50 MG capsuleIndications :per Dr. Lorenzana-unknown rationale for same Take 50 mg by mouth 2 (two) times daily. glyBURIDE 5 MG tablet Take 10 mg by mouth 2 (two) times daily with meals. metoprolol succinate ER 50 MG 24 hr tabletIndications: reports for arryhythmia Take 50 mg by mouth nightly at bedtime. SITagliptin 50 MG tablet Take 50 mg by mouth daily. documented as of this encounter H&P Notes * Jose Lorenzana MD - 10/31/2018 8:05 AM CDT HISTORY AND PHYSICAL INTERVAL NOTE: I have reviewed Yaneth Gerald History & Physical which was performed within the past 30 days. After examining Yaneth Duarte, no change has occurred in the patient's condition since the H&P was completed. Informed Consent Discussion: Risks, benefits, alternatives as well as the consequences of not performing the surgery/procedure were discussed with the patient and/or family/personal auto claim representative. Questions were answered and the patient/family/personal auto claim representative verbalized understanding and desires to proceed. JOSE LORENZANA MD documented in this encounter OR Notes * Op Note - Jose Lorenzana MD - 10/31/2018 9:49 AM CDT Date: 10/31/2018 Patient Name: Yaneth Duarte : 1955 Surgeon: JOSE LORENZANA MD. Preoperative Diagnosis: Cataract Left Postoperative Diagnosis: Cataract Left Name of Operation: Cataract Extraction (by Phacoemulsification) and Intraocular Lens Implant Anesthesia: Topical Specimen: None Complications: NONE EBL: NONE Description of Procedure: The eye was anesthetized with topical 0.75% bupivacaine. After intravenous sedation and placement of monitors, the patient was prepped and draped in the usual sterile manner. A lid speculum was placed. A paracentesis was made, and preservative free 1% lidocaine was instilled in the anterior chamber. The anterior chamber was then filled with Viscoat viscoelastic. A emelyn keratome was used to create the wound. Continuous tear anterior capsulotomy was performed. The lens was hydro dissected before being removed with phacoemulsification. The remaining lenticular cortexwas removed with aspiration. The capsular bag was polished and filled with viscoelastic material. An intraocular lens was chosen, inspected, irrigated and placed within the capsular bag where it was seen to be centered and stable. The viscoelastic material was aspirated. The wound was closed and found to be watertight. Betadine and antibiotic drops were placed in the eye. The speculum was removed. A Fitch shield was applied. The patient tolerated the procedure well and left the operating room in satisfactory condition. JOSE LORENZANA MD documented in this encounter Plan of Treatment Not on file documented as of this encounter Procedures Procedure Name Priority Date/Time Associated Diagnosis Comments CATARACT REMOVAL WITH IOL IMPLANT 10/31/2018 9:01 AM CDT H25.12 Special Needs 7:30 documented in this encounter Visit Diagnoses Not on filedocumented in this encounter Administered Medications Inactive Administered Medications - up to 3 most recent administrations Medication Order MAR Action Action Date Dose Rate Site besifloxacin (BESIVANCE) 0.6 % ophthalmic suspension 1 drop 1 drop, Left Eye, Every 5 min, 3 doses, First dose on Mon10/31/18 at 0745, Last dose on Mon10/31/18 at 0755, Instill to operative eye, Pre-Op Given 10/31/2018 8:02 AM CDT 1 drop Given 10/31/2018 7:56 AM CDT 1 drop Given 10/31/2018 7:51 AM CDT 1 drop BUpivacaine (PF) (MARCAINE) 0.5 % injection 0.1 mL 0.1 mL, Left Eye, Every 5 min, 3 doses, First dose on Mon10/31/18 at 0745, Last dose on Mon10/31/18 at 0755, Instill to operative eye, Pre-Op Given 10/31/2018 8:03 AM CDT 0.1 mLs Given 10/31/2018 7:56 AM CDT 0.1 mLs Given 10/31/2018 7:51 AM CDT 0.1 mLs flurbiprofen (OCUFEN) 0.03 % ophthalmic solution 1 drop 1 drop, Left Eye, Every 5 min, 3 doses, First dose on Mon10/31/18 at 0745, Last dose on Mon10/31/18 at 0755, Instill to operative eye, Pre-Op Given 10/31/2018 8:03 AM CDT 1 drop Given 10/31/2018 7:56 AM CDT 1 drop Given 10/31/2018 7:51 AM CDT 1 drop methazolamide (NEPTAZANE) tablet 50 mg 50 mg, Oral, Once, 1 dose, On Mon10/31/18 at 1000, If NOT allergic to Sulfa, Post-Op Given 10/31/2018 9:37 AM CDT 50 m g phenylephrine (MYDFRIN) 2.5 % ophthalmic solution 1 drop 1 drop, Left Eye, Every 5 min, 3 doses, First dose on Mon10/31/18 at 0745, Last dose on Mon10/31/18 at 0755, Instill to operative eye, Pre-Op Given 10/31/2018 8:03 AM CDT 1 drop Given 10/31/2018 7:57 AM CDT 1 drop Given 10/31/2018 7:51 AM CDT 1 drop tropicamide (MYDRIACYL) 1 % ophthalmic solution 1 drop 1 drop, Left Eye, Every 5 min, 3 doses, First dose on Mon10/31/18 at 0745, Last dose on Mon10/31/18 at 0755, Instill to operative eye, Pre-Op Given 10/31/2018 8:04 AM CDT 1 drop Given 10/31/2018 7:57 AM CDT 1 drop Given 10/31/2018 7:51 AM CDT 1 drop documented in this encounter Active and Recently Administered Medications Times are shown in CDT. Scheduled Medication Order 10/29/2018 10/30/2018 10/31/2018 besifloxacin (BESIVANCE) 0.6 % ophthalmic suspension 1 drop (COMPLETED) 1 drop, Left Eye, Every 5 min, 3 doses, First dose on Mon10/31/18 at 0745, Last dose on Mon10/31/18 at 0755, Instill to operative eye, Pre-Op 075 (Given - Provid er: Bailee Lara RN)075 (Given - Provider: Bailee Lara RN)0802 (Given - Provider: Bailee Lara RN) BUpivacaine (PF) (MARCAINE) 0.5 % injection 0.1 mL (COMPLETED) 0.1 mL, Left Eye, Every 5 min, 3 doses, First dose on Mon10/31/18 at 0745, Last dose on Mon10/31/18 at 0755, Instill to operative eye, Pre-Op 075 (Given - Provid er: Bailee Lara RN)075 (Given - Provider: Bailee Lara RN)0803 (Given - Provider: Bailee Lara RN) flurbiprofen (OCUFEN) 0.03 % ophthalmic solution 1 drop (COMPLETED) 1 drop, Left Eye, Every 5 min, 3 doses, First dose on Mon10/31/18 at 0745, Last dose on Mon10/31/18 at 0755, Instill to operative eye, Pre-Op 075 (Given - Provid er: Bailee Lara RN)0756 (Given - Provider: Bailee Lara RN)0803 (Given - Provider: Bailee Lara RN) methazolamide (NEPTAZANE) tablet 50 mg (COMPLETED) 50 mg, Oral, Once, 1 dose, On Mon10/31/18 at 1000, If NOT allergic to Sulfa, Post-Op 0937 (Given - Provid er: Tramaine Ayala RN) phenylephrine (MYDFRIN) 2.5 % ophthalmic solution 1 drop (COMPLETED) 1 drop, Left Eye, Every 5 min, 3 doses, First dose on Mon10/31/18 at 0745, Last dose on Mon10/31/18 at 0755, Instill to operative eye, Pre-Op 075 (Given - Provid er: Bailee Lara RN)075 (Given - Provider: Bailee Lara RN)0803 (Given - Provider: Bailee Lara RN) tropicamide (MYDRIACYL) 1 % ophthalmic solution 1 drop (COMPLETED) 1 drop, Left Eye, Every 5 min, 3 doses, First dose on Mon10/31/18 at 0745, Last dose on Mon10/31/18 at 0755, Instill to operative eye, Pre-Op 075 (Given - Provid er: Bailee Lara RN)075 (Given - Provider: Bailee Lara RN)0804 (Given - Provider: Bailee Lara RN) PRN Medication Order 10/29/2018 10/30/2018 10/31/2018 apraclonidine (IOPIDINE) 0.5 % ophthalmic solution (CANCELED) As needed, Starting on Mon10/31/18 at 0914, Until Mon10/31/18 at 0924, Intra-Op 14 (Given - Provid er: Jose Lorenzana MD) EPINEPHrine 0.3 mg in balanced salts (BSS) irrigation solution (CANCELED) As needed, Starting on Mon10/31/18 at 0915, Until Mon10/31/18 at 0924, Intra-Op 914 (Given - Provid er: Jose Lorenzana MD) lidocaine (PF) (XYLOCAINE) 1 % injection (CANCELED) As needed, Starting on Mon10/31/18 at 0906, Until Mon10/31/18 at 0924, Intra-Op 905 (Given - Provid er: Sol Deluna RN) moxifloxacin (VIGAMOX) 0.5 % ophthalmic solution (CANCELED) As needed, Starting on Mon10/31/18 at 0915, Until Mon10/31/18 at 0924, Intra-Op 0915 (Given - Provid er: Jose Lorenzana MD) xecgiyng-tbvqizohqr-uxuncazdp (NEOSPORIN) ophthalmic ointment (CANCELED) As needed, Starting on Mon10/31/18 at 0915, Until Mon10/31/18 at 0924, Intra-Op 0915 (Given - Provid er: Jose Lorenzana MD) povidone-iodine (BETADINE) 5 % ophthalmic solution (CANCELED) As needed, Starting on Mon10/31/18 at 0906, Until Mon10/31/18 at 0924, Intra-Op 0906 (Given - Provid er: Sol Deluna RN) documented in this encounter Care Teams Line Maintenance Relationship Specialty Start Date End Date Laura Grider MD [address] [place] [address] [place] [address] PCP - General FAMILY PRACTICE 08/24/18 documented as of this encounter
--- OUTSIDE RECORDS SUMMARY | 2024-03-08 00:41 | XMS_ITS | Continuity of Care Document ---
Author Organization [place] [facility], [facility] [place] Address [address] [place] [address] Care Team Providers Care Network Intern Name Role Phone MARION TRINIDAD ZACHARY Primary Care Provider MARION TRINIDAD ZACHARY Referring Provider Assessment No assessment recorded. Plan of Treatment Reminders Order Date Submit Date Provider Last Modified By Organization Details Last Modified Time Details Appointments Any 30 2024 08:30A M Jess Lima NP Not available Not available Not available Lab glycohemo globin, total, blood 2024 025 [id number] [facility] ([facility] [address] [place], [address], 02/29/2024 10:31:54 Referral pulmonolo gist referral - Please call patient to schedule an appointme nt. Thank you. 2024 025 [id number] Ronny Fulton MD, [address] [place], [address], 02/29/2024 10:31:54 Procedures None recorded. Surgeries None recorded. Imaging None recorded. Medication Orders oxycodone -acetamin ophen 5 mg-325 mg tablet 2024 025 [id number] [facility] [address] , [place], [address], 02/29/2024 10:31:54 Patient TargetsNo targets recorded. Patient InstructionsNo instructions recorded. Reason for Referral Section Chief Referral for O bstructive sleep apnea syndrome Please call patient to schedule an appointment. Thank you. Referring Physician: Jess Lima, Family Medicine, Encounter Date: 02/29/2024 Results Created Date Observation Date Name Description Value Unit Range Abnormal Flag Note LastModifiedBy Organization Detail LastModifiedTime 02/09/20 24 02/09/2024 imagi ng/di agnos tic resul t No observ ation record ed. [address], [place], [address], 02/09/2024 06:31:48 02/09/20 24 02/09/2024 imagi ng/di agnos tic resul t No observ ation record ed. [address], [place], [address], 02/09/2024 06:39:16 02/09/20 24 02/09/2024 imagi ng/di agnos tic resul t No observ ation record ed. [address], [place], [address], 02/09/2024 07:07:16 02/09/20 24 02/09/2024 imagi ng/di agnos tic resul t No observ ation record ed. [address], [place], [address], 02/09/2024 08:39:10 02/10/20 24 02/10/2024 imagi ng/di agnos tic resul t No observ ation record ed. [address], [place], [address], 02/10/2024 16:54:29 02/16/20 24 02/15/2024 imagi ng/di agnos tic resul t No observ ation record ed. [address], [place], [address], 02/16/2024 09:56:53 03/01/19 25 02/09/2024 CT, chest , w/o contr ast No observ ation record ed. BARCODE Not Available 2024 14:43:15 Result Notes None recorded. Problems Name Problem SNOMED Code Status Onset Date Resolution Date Notes Provider Name and Address Organization Details Recorded Time Bipolar disorder 90599684 Active Not Available [facility] 3 00:53:11 Calcific tendinitis of shoulder 99682244 Active Not Available [facility] 3 00:53:11 Attention deficit hyperactivity disorder, predominantly inattentive type 59809672 Active Not Available [facility] 3 00:53:11 Osteoarthriti s 890836716 Active Not Available [facility] 3 00:53:11 Essential hypertension 39376863 Active Not Available [facility] 3 00:53:12 Allergic rhinitis 94834534 Active Not Available [facility] 3 00:53:12 Diabetes mellitus 55655283 Active Not Available [facility] 3 00:53:12 Obstructive sleep apnea syndrome 48637927 Active 2021 Not Available [facility] 3 00:53:12 Sj??gren's syndrome 53017126 Active Not Available [facility] 3 00:53:12 Ex-smoker 6527061 Active Not Available [facility] 3 00:53:12 Chronic ulcerative proctitis 94179094 Active 2022 Laura Grider MD [address], [place] [address], [place], [address] , [employer] 3 09:54:31 Vitamin D deficiency 94055197 Active 2022 Laura Grider MD [address], [place], [address] , [employer] 3 09:57:13 Hyperlipidemi a 32626492 Active 2022 Laura Grider MD [address], [address], [place], [address] , [employer] 3 09:57:58 Mixed anxiety and depressive disorder 429620737 Active 2022 Laura Grider MD [address], [place], [address] , [email or web address] 3 15:40:00 Iron deficiency 46421649 Active 2023 Gustavo Tristannelda [facility] [address], [place], [address] , [email or web address] 4 09:52:22 Cobalamin deficiency 362423946 Active 2023 SONYA OrellanaP-C [address], [place], [address] , [email or web address] 4 14:29:47 Dyspnea on exertion 36897813 Active 2024 Ronny Fulton MD [address], [address] [employer], [place], [address] , [email or web address] 5 10:48:26 Notes:Medical History: Anxie ty/Bipolar depression/ADHD Nasoseptal perforation Rhinitis Eosinophils 370/uL Thyroid nodules 7 mm RUL nodule Obesity with mild OSAHS, AHI = 9, 06/23/21, on CPAP c/o [facility] T2DM Hyperlipidemia Hypertension NSTEMI CHF Hepatic steatosis with caput medusae Ulcerative proctitis PLMD Vit D deficiency Sjogren's syndrome Left rotator cuff tear OA Procedure History: T&A 1964 C- sections 1982, 1987, 1988 Bladder suspension 1986 Bladder revision 1987 WIL 1988 Left knee replacement 2004 Right knee replacement 2007 Cardiac catheterization 2024 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 Procedures Surgical History Date Name Laterality Status Provider Name and Address Organization Details Recorded Time 01/03/20 24 Ortho - Cortisone Injection completed Kathy Ross NP [address], [place], [address], [employer] 01/03/2024 15:00:40 12/13/19 24 Ortho - Cortisone Injection completed Flaco Denise MD [address], [place], [address], [email or web address] 12/13/2023 10:33:59 07/05/19 24 Cortisone Injection (Dequervains/ Greater Trochantric/ Lateral Epicondylitis/ Shoulder/ Subacromial Space/ Knee or Trigger Finger) completed Laura Grider MD [address] [facility] [address], [place], [address], [facility] 07/05/2023 08:50:43 06/20/19 24 Transitional_Ca re_Management completed Ce Hector RN [facility] 06/20/2023 16:41:15 01/05/20 23 Cortisone Injection (Dequervains/ Greater Trochantric/ Lateral Epicondylitis/ Shoulder/ Subacromial Space/ Knee or Trigger Finger) completed Laura Grider MD [address], [place], [address], [facility] 01/19/2023 19:14:01 09/02/19 23 Cortisone Injection (Dequervains/ Greater Trochantric/ Lateral Epicondylitis/ Shoulder/ Subacromial Space/ Knee or Trigger Finger) completed SHARA Acosta [address] [facility] [address], [place], [address], [facility] 08/31/2022 08:22:44 07/01/19 23 Colonoscopy completed Hope Zamora LPN [facility] 06/30/2022 14:35:15 Knee Replacement completed Not Available [facility] 04/20/2022 00:47:57 procedure on urinary bladder completed Not Available [facility] 04/20/2022 00:47:57 Knee Replacement completed Not Available [facility] 04/20/2022 00:47:57 Imaging Results None recorded. Procedure Notes None recorded. Medical Equipment None Reported. Allergies Allergen ID Allergen Name Allergen Category Reaction Reaction Severity Criticality Documentation Date Start Date Code Code System Note Provider Name and Address Organization Details Recorded Time 1284 triamcino lone medicatio n Not available Not available Not available 04/20/2022 33800 RxNorm OINT Not Available [facility] 01:02:05 1285 codeine medicatio n itching Not available Not available 04/20/2022 2670 RxNorm Not Available [facility] 3 01:02:05 Medications Name Sig Start Date Stop Date Status Note LastModified by Organization Details LastModified Time celecoxib 200 mg capsule Take 1 capsule twice a day by oral route as needed. 09/30 completed Not Available Not Available Not Available cyclobenza ross 10 mg tablet Take 1 tablet 3 times a day by oral route as needed. active Not Available Not Available No t Available amoxicilli n 500 mg capsule 04/05 completed Not Available Not Available Not Available furosemide 40 mg tablet active Not Available Not Available Not Available latanopros t 0.005 % eye drops 01/25 completed Not Available Not Available Not Available atorvastat in 40 mg tablet Take 1 tablet by mouth once daily active Not Available Not Available No t Available clotrimazo le 10 mg hans 12/12 completed Not Available Not Available Not Available metformin 500 mg tablet Take 1 tablet twice a day by oral route as directed for 30 days. 12/11 completed Not Available Not Available Not Available lidocaine HCl 10 mg/mL (1 %) injection solution Take 2 mL by injection route. 12/27 completed Not Available Not Available Not Available nystatin 100,000 unit/mL oral suspension TAKE 10 ML BY MOUTH 4 TIMES A DAY 07/04 completed Not Available Not Available Not Available prednisone 10 mg tablet Take 2 tablets every day by oral route. active Not Available Not Available No t Available gabapentin 600 mg tablet Take 1 tablet twice a day by oral route at bedtime. active Not Available Not Available No t Available doxycyclin e hyclate 100 mg capsule Take 1 capsule twice a day by oral route for 10 days. 12/11 completed Not Available Not Available Not Available clindamyci n HCl 300 mg capsule 12/12 completed Not Available Not Available Not Available azithromyc in 250 mg tablet 2 tabs po qd x 1 day then 1 tab po qd x 4 days 12/20 completed Not Available Not Available Not Available glyburide 5 mg tablet 2 po bid with food active Not Available Not Available No t Available ofloxacin 0.3 % eye drops 01/25 completed Not Available Not Available Not Available fluconazol e 150 mg tablet Take 1 tablet every 72 hours by oral route. 10/23 /2024 completed Not Available Not Available Not Available benzonatat e 200 mg capsule Take 1 capsule 3 times a day by oral route prn cough 03/22 completed Not Available Not Available Not Available metoprolol succinate ER 50 mg tablet,ext ended release 24 hr TAKE ONE TABLET BY MOUTH DAILY active Not Available Not Available No t Available hydrocodon e 5 mg-acetami nophen 325 mg tablet TAKE 1 TABLET BY MOUTH EVERY 4 TO 6 HOURS NEEDED FOR PAIN active Not Available Not Available No t Available meloxicam 15 mg tablet Take 1 tablet(s) every day by oral route. active Not Available Not Available No t Available bupivacain e HCl 0.5 % (5 mg/mL) injection solution in office 03/01 completed Not Available Not Available Not Available prednisone 20 mg tablet 3 po qday x 3 days then 2 po qday x 3 days then 1 po qday x 3 days then 1/2 po qday x 3 days then stop 04/05 completed Not Available Not Available Not Available dextroamph etamine-am phetamine 10 mg tablet Take 2 tablets 3 times a day by oral route. 06/13 completed Not Available Not Available Not Available clonazepam 0.5 mg tablet 04/21 completed Not Available Not Available Not Available doxycyclin e hyclate 50 mg capsule 12/11 completed Not Available Not Available Not Available prednisone 5 mg tablet 2 tabs po qday x 2 weeks then 1 tab po qday x 2 weeks then 1/2 tab po qday x 2 weeks then 1/2 tab po every other day x 2 weeks then stop 12/11 completed Not Available Not Available Not Available clindamyci n HCl 150 mg capsule 12/12 completed Not Available Not Available Not Available ciprofloxa chapincito 250 mg tablet Take 1 tablet every 12 hours by oral route for 3 days. active Not Available Not Available No t Available acyclovir 400 mg tablet Take 1 tablet every 8 hours by oral route for 7 days. active Not Available Not Available No t Available ciprofloxa chapincito 500 mg tablet Take 1 tablet every 12 hours by oral route as directed for 5 days. 03/01 completed Not Available Not Available Not Available sulfametho xazole 800 mg-trimeth oprim 160 mg tablet TAKE 1 TABLET BY MOUTH TWICE DAILY FOR 10 DAYS 12/11 completed Not Available Not Available Not Available ondansetro n 8 mg disintegra ting tablet Place 1 tablet 3 times a day by transling ual route as needed. 12/12 completed Not Available Not Available Not Available nystatin-t riamcinolo ne 100,000 unit/gram- 0.1 % topical ointment APPLY TO THE AFFECTED AREA(S) BY TOPICAL ROUTE 2 TIMES PER DAY active Not Available Not Available No t Available oxycodone- acetaminop hen 5 mg-325 mg tablet Take 1 tablet twice a day by oral route. active Not Available Not Available No t Available amoxicilli n 875 mg tablet Take 1 tablet every 12 hours by oral route for 7 days. active Not Available Not Available No t Available prednisolo ne acetate 1 % eye drops,susp ension 06/03 completed Not Available Not Available Not Available modafinil 200 mg tablet TAKE 2 TABLETS BY MOUTH ONCE DAILY IN THE MORNING 05/25 completed Not Available Not Available Not Available oxycodone- acetaminop hen 10 mg-325 mg tablet TAKE ONE TABLET BY MOUTH UP TO EVERY 6 HOURS NEEDED FOR FOR FOR FOR PAIN 12/12 completed Not Available Not Available Not Available Humalog U-100 Insulin 100 unit/mL subcutaneo us solution 04/21 completed Not Available Not Available Not Available Kenalog 10 mg/mL suspension for injection in office 03/01 completed [facility]: [phone] Not Available Not Available Not Available sulfacetam roldan sodium 10 % eye drops INT 1 GTT IN OD Q 2-3 H WHILE AWAKE FOR 7 DAYS 08/09 completed Not Available Not Available Not Available benzonatat e 100 mg capsule 06/19 completed Not Available Not Available Not Available triamcinol one acetonide 40 mg/mL suspension for injection Take 2 mL by injection route. 12/27 completed Not Available Not Available Not Available prednisone 2.5 mg tablet 1 tab po TID for 3 days then po BID for 3 days then daily for 3 days and then 1/2 daily for 3 days. active Not Available Not Available No t Available cephalexin 500 mg capsule TK ONE C PO BID x 7 days 12/11 completed Not Available Not Available Not Available pantoprazo le 40 mg tablet,del ayed release 12/11 completed Not Available Not Available Not Available erythromyc in 5 mg/gram (0.5 %) eye ointment 03/11 completed Not Available Not Available Not Available diphenhydr amine 25 mg capsule Take 2 capsules 3 times a day by oral route as needed for 10 days. 09/12 completed Not Available Not Available Not Available cyanocobal robins (vit B-12) 1,000 mcg/mL injection solution INJECT 1 ML EVERY WEEK BY SUBCUTANE OUS ROUTE. 2023 active Not Available Not Available Not Avai lable ferrous sulfate 325 mg (65 mg iron) tablet Take 1 tablet every day by oral route for 90 days. 12/11 completed Not Available Not Available Not Available fluoxetine 20 mg tablet Take 3 tablets every day by oral route as directed for 30 days. 01/23 completed Not Available Not Available Not Available metformin 1,000 mg tablet 1 po bid active Not Available Not Available Not Available neomycin-p olymyxin-d exameth 3.5 mg/mL-10,0 00 unit/mL-0. 1% eye drops 09/30 completed Not Available Not Available Not Available nitrofuran toin macrocryst al 100 mg capsule Take 1 capsule twice a day by oral route for 7 days. active Not Available Not Available No t Available triamcinol one acetonide 0.1 % topical ointment active Not Available Not Available Not Available dextroamph etamine-am phetamine 20 mg tablet TAKE ONE TABLET BY MOUTH 3 TIMES A DAY DIRECTED active Not Available Not Available No t Available lidocaine 5 % topical patch APPLY 1 PATCH BY TOPICAL ROUTE ONCE DAILY (MAY WEAR UP TO 12HOURS.) 03/07 completed Not Available Not Available Not Available polymyxin B sulfate 10,000 unit-trime thoprim 1 mg/mL eye drops INSTILL 1 DROP INTO AFFECTED EYE(S) BY OPHTHALMI C ROUTE EVERY 6 HOURS x 7 days 12/11 completed Not Available Not Available Not Available Advair Diskus 250 mcg-50 mcg/dose powder for inhalation 1 puff bid 06/18 completed Not Available Not Available Not Available BD Luer-Nadeem Syringe 3 mL 25 gauge x 1 USE TO INJECT VITAMIN B 12 03/01 completed Not Available Not Available Not Available gabapentin 300 mg capsule Take 1 capsule every day by oral route. active Not Available Not Available No t Available cephalexin 500 mg tablet Take 1 tablet twice a day by oral route for 7 days. 12/30 completed Not Available Not Available Not Available hydrocorti sone 2.5 % topical cream 12/12 completed Not Available Not Available Not Available montelukas t 10 mg tablet Take 1 tablet every day by oral route. 12/12 completed Not Available Not Available Not Available mupirocin 2 % topical ointment 12/12 completed Not Available Not Available Not Available alprazolam 2 mg tablet TAKE ONE TABLET BY MOUTH UP TO 3 TIMES A DAY NEEDED active Not Available Not Available No t Available permethrin 1 % topical liquid APPLY A SUFFICIEN T AMOUNT OF SHAMPOO BY TOPICAL ROUTE ONCE ALLOW TO REMAIN ON HAIR FOR 10 MINUTES BEFORE RINSING OFF WITH WATER 01/25 completed Not Available Not Available Not Available metoprolol succinate ER 25 mg tablet,ext ended release 24 hr Take 1 tablet every day by oral route. active Not Available Not Available No t Available hydroxychl oroquine 200 mg tablet 1 po bid active Not Available Not Available Not Available levofloxac in 750 mg tablet 07/04 completed Not Available Not Available Not Available albuterol sulfate HFA 90 mcg/actuat ion aerosol inhaler INHALE TWO (2) PUFFS EVERY 4 HOURS BY INHALATIO N ROUTE. active Not Available Not Available No t Available celecoxib 100 mg capsule TAKE 1 CAPSULE TWICE A DAY NEEDED 01/04 completed Not Available Not Available Not Available fluoxetine 20 mg capsule active Not Available Not Available Not Available fluticason e propionate 50 mcg/actuat ion nasal spray,susp ension [place] 1 spray every day by intranasa l route. 12/11 completed Not Available Not Available Not Available metformin ER 500 mg tablet,ext ended release 24 hr TAKE 2 TABLET(S) EVERY DAY BY ORAL ROUTE. 09/11 completed Not Available Not Available Not Available colestipol 1 gram tablet 12/12 completed Not Available Not Available Not Available doxycyclin e hyclate 100 mg tablet Take 1 tablet twice a day by oral route for 10 days. 02/09 completed Not Available Not Available Not Available phentermin e 37.5 mg capsule Take 1 capsule every day by oral route. 01/21 completed Not Available Not Available Not Available Lotemax 0.5 % eye drops,susp ension 10/27 completed Not Available Not Available Not Available amoxicilli n 875 mg-potassi um clavulanat e 125 mg tablet Take 1 tablet every 12 hours by oral route with meals for 10 days. 01/18 completed Not Available Not Available Not Available tobramycin 0.3 %-dexameth asone 0.1 % eye drops,susp ension 05/31 completed Not Available Not Available Not Available Amphetamin e Salt Combo 20 mg tablet TK 2 TS PO QAM AND 1 T PO AT 2PM 01/04 completed Not Available Not Available Not Available azithromyc in 500 mg tablet 06/19 completed Not Available Not Available Not Available aripiprazo le 30 mg tablet 1 po qday active Not Available Not Available No t Available Novolog FlexPen U-100 Insulin aspart 100 unit/mL (3 mL) subcutaneo us Inject 6 units 3 times a day by subcutane ous route with meals for 90 days. 12/11 completed 10 units TID Not Available Not Available Not Available Restasis 0.05 % eye drops in a dropperett e active Not Available Not Available Not Available Alcohol Prep Pads Use to check blood sugars 6x daily and administe r insulin 4x daily 04/05 completed Not Available Not Available Not Available metformin ER 500 mg tablet,ext ended release 24hr (osmotic) Take 2 tablets every day by oral route. 08/27 completed Not Available Not Available Not Available nitrofuran toin monohydrat e/macrocry stals 100 mg capsule Take 1 capsule every 12 hours by oral route for 7 days. 12/12 completed Not Available Not Available Not Available eszopiclon e 2 mg tablet 12/12 completed Not Available Not Available Not Available mesalamine 1,000 mg rectal suppositor y active Not Available Not Available Not Available chlorhexid ine gluconate 0.12 % mouthwash SWISH AND SPIT 15 MLS BY MOUTH TWICE A DAY NEEDED 12/11 completed Not Available Not Available Not Available Zostavax (PF) 19,400 unit/0.65 mL subcutaneo us suspension 09/30 completed Not Available Not Available Not Available UltiCare Pen Needle 31 gauge x 5/16 03/01 completed Not Available Not Available Not Available Januvia 100 mg tablet Take 1 tablet every day by oral route. 11/21 completed Not Available Not Available Not Available Pataday 0.2 % eye drops active Not Available Not Available Not Available mesalamine 1.2 gram tablet,del ayed release 12/12 completed Not Available Not Available Not Available Symbicort 160 mcg-4.5 mcg/actuat ion HFA aerosol inhaler Inhale 1 puff twice a day by inhalatio n route. 08/27 completed Not Available Not Available Not Available Optifoam 4 X 4 bandage Apply 1 bandage twice a week by topical route as needed. 06/18 completed Not Available Not Available Not Available Flector 1.3 % transderma l 12 hour patch active Not Available Not Available Not Available Humalog KwikPen (U-100) Insulin 100 unit/mL subcutaneo us 12/11 completed Not Available Not Available Not Available PreviDent 5000 Dry Mouth 1.1 % dental paste 06/03 completed Not Available Not Available Not Available Pristiq 50 mg tablet,ext ended release Take 1 tablet every day by oral route around the clock for 30 days. 2012 active Not Available Not Available Not Avai lable desvenlafa xine succinate ER 100 mg tablet,ext ended release 24 hr Take 1 tablet by mouth once daily active Not Available Not Available No t Available Voltaren 1 % topical gel Apply 2 g 4 times a day by topical route as needed for 30 days. active Not Available Not Available No t Available Stelara 45 mg/0.5 mL subcutaneo us solution active Not Available Not Available Not Available OneTouch Delica Lancets 33 gauge 09/30 completed Not Available Not Available Not Available spinosad 0.9 % topical suspension APPLY 30 - 120 MILLILITE RS BY TOPICAL ROUTE TO DRY HAIR, SATURATIN G HAIR AND SCALP. AFTER 10 MIN RINSE WITH WARM WATER. MAY REPEAT IN 7 DAYS 01/25 completed Not Available Not Available Not Available Tradjenta 5 mg tablet Take 1 tablet every day by oral route. 11/22 completed Not Available Not Available Not Available Sklice 0.5 % lotion apply per package instructi ons active Not Available Not Available No t Available Contour Next Test Strips TEST UP TO 3 TIMES A DAY DIRECTED -- ICD-10: E11.9 12/11 completed Not Available Not Available Not Available Victoza 3-Hermilo 0.6 mg/0.1 mL (18 mg/3 mL) subcutaneo us pen injector INJECT 1.8MG SUBCUTANE OUSLY DAILY active Not Available Not Available No t Available Brisdelle 7.5 mg capsule 1 po qday 10/27 completed Not Available Not Available Not Available Farxiga 10 mg tablet TAKE 1 TABLET BY MOUTH ONCE DAILY IN THE MORNING active Not Available Not Available No t Available Farxiga 5 mg tablet 07/04 completed Not Available Not Available Not Available potassium chloride ER 20 mEq tablet,ext ended release 03/01 completed Not Available Not Available Not Available Fluvirin 2640-3216 45 mcg (15 mcg x 3)/0.5 mL intramuscu lar suspension 01/04 completed Not Available Not Available Not Available marijuana (cannabis) medical marijuana 06/03 completed Not Available Not Available Not Available Saxenda 3 mg/0.5 mL (18 mg/3 mL) subcutaneo us pen injector Inject 0.6 mg every day by subcutane ous route. 02/05 completed Not Available Not Available Not Available Flulaval Quad 60 mcg (15 mcg x 4)/0.5 mL IM suspension 01/04 completed Not Available Not Available Not Available naloxone 4 mg/actuati on nasal spray active Not Available Not Available Not Available Vraylar 1.5 mg capsule Take 1 capsule every day by oral route. 06/04 completed Not Available Not Available Not Available Vraylar 4.5 mg capsule Take 1 capsule every day by oral route. 06/04 completed Not Available Not Available Not Available Fluzone Quad 60 mcg (15 mcg x 4)/0.5 mL IM suspension 03/22 completed Not Available Not Available Not Available Stelara 130 mg/26 mL intravenou s solution 12/12 completed Not Available Not Available Not Available Basaglar KwikPen U-100 Insulin 100 unit/mL (3 mL) subcutaneo us 45 units sc qhs 12/12 completed Not Available Not Available Not Available Maulikagllouie KwikPen U-100 Insulin 50 units 03/22 completed Not Available Not Available Not Available Trelegy Ellipta 100 mcg-62.5 mcg-25 mcg powder for inhalation Inhale 1 puff every day by inhalatio n route for 90 days. 12/12 completed Not Available Not Available Not Available Ozempic 0.25 mg or 0.5 mg (2 mg/1.5 mL) subcutaneo us pen injector 09/30 completed Not Available Not Available Not Available BD Mer 2nd Gen Pen Needle 32 gauge x 12/11 completed Not Available Not Available Not Available Flucelvax Quad (PF) 60 mcg (15 mcg x 4)/0.5 mL IM syringe 12/30 completed Not Available Not Available Not Available COVID-19 test specimen collection TEST DIRECTED 01/21 completed Not Available Not Available Not Available FreeStyle Hoang 2 Sensor kit 04/05 completed Not Available Not Available Not Available Fluzone Quad (PF) 60 mcg (15 mcg x 4)/0.5 mL IM syringe PHARMACY ADMINISTE RED active Not Available Not Available No t Available Ozempic 1 mg/dose (4 mg/3 mL) subcutaneo us pen injector Inject 1 mg every week by subcutane ous route for 28 days. active Not Available Not Available No t Available Ozempic 2 mg/dose (8 mg/3 mL) subcutaneo us pen injector INJECT 2MG SUBCUTANE OUSLY WEEKLY (EVERY 7 DAYS; ON SATURDAYS ) 03/01 completed Not Available Not Available Not Available Vitals Date Recorded Body height Body mass index (BMI) Body weight Body temperature Provider Name and Address Organization Details Last Updated DateTime 02/29/2024 170.18 cm 26.6 kg/m2 29614.7 g 96.9 [degF] Ce Hector RN [place] [facility] 02/29/2024 09:05:40 Social History Question Answer Notes LastModified by Organizat ion Details LastModified Time Tobacco Smoking Status Former Smoker Not Available [facility] 04/20/2022 00:45:45 Do You Have An Advance Directive? Yes MIGRATION.14215 [id number] Information not available 04/20/2022 What Is Your Level Of Alcohol Consumption? None MIGRATION.05842 69481 Information not available 04/20/2022 Are You Blind Or Do You Have Difficulty Seeing? No MIGRATION.60920 65357 Information not available 04/20/2022 What Is Your Level Of Caffeine Consumption? Occasional MIGRATION.45100 92344 Information not available 04/20/2022 How Much Tobacco Do You Chew? None MIGRATION.45777 73164 Information not available 04/20/2022 In The 14 Days Before Symptom Onset, Have You Had Close Contact With A Laboratory-confi rmed COVID-19 While That Case Was Ill? No MIGRATION.34279 01369 Information not available 04/20/2022 In The 14 Days Before Symptom Onset, Have You Had Close Contact With A Person Who Is Under Investigation For COVID-19 While That Person Was Ill? No MIGRATION.64149 28107 Information not available 04/20/2022 Are You Deaf Or Do You Have Serious Difficulty Hearing? No MIGRATION.37158 20833 Information not available 04/20/2022 What Type Of Diet Are You Following? REGULAR MIGRATION.34871 17628 Information not available 04/20/2022 Which Illicit Or Recreational Drugs Have You Used? None MIGRATION.74290 99808 Information not available 04/20/2022 Do You Or Have You Ever Used E-cigarettes Or Vape? Never Used Electronic Cigarettes MIGRATION.02594 99947 Information not available 04/20/2022 Do You Have An Electrostatic Air Filter? No MIGRATION.95717 56243 Information not available 04/20/2022 What Is Your Occupation? Retired MIGRATION.20707 85990 Information not available 04/20/2022 Do You Have A Humidifier? Yes MIGRATION.74225 53197 Information not available 04/20/2022 Do You Use Insect Repellent Routinely? Yes MIGRATION.67051 34398 Information not available 04/20/2022 Do You Have A Medical Power Of Software Qa Manager? Yes MIGRATION.76082 73885 Information not available 04/20/2022 Do You Have Moisture Problems In Your Home? No MIGRATION.31895 73655 Information not available 04/20/2022 What Was The Date Of Your Most Recent Tobacco Screening? 03/07/2024 Information not available 03/07/2024 Do You Have Any Pets? Yes MIGRATION.08053 53309 Information not available 04/20/2022 Do You Use Your Seat Belt Or Car Seat Routinely? Yes Information not available 03/07/2024 Do You Have Smoke And Carbon Monoxide Detectors In Your Home? Yes MIGRATION.04275 62040 Information not available 04/20/2022 Are You Passively Exposed To Smoke? No MIGRATION.58758 80057 Information not available 04/20/2022 Do You Or Have You Ever Used Smokeless Tobacco? Never Used Smokeless Tobacco MIGRATION.90109 17570 Information not available 04/20/2022 How Much Tobacco Do You Smoke? No MIGRATION.81900 56771 Information not available 04/20/2022 Do You Feel Stressed (tense, Restless, Nervous, Or Anxious, Or Unable To Sleep At Night)? [id number] MIGRATION.30966 03312 Information not available 04/20/2022 Do You Use Any Illicit Or Recreational Drugs? No MIGRATION.32094 83167 Information not available 04/20/2022 Do You Use Sunscreen Routinely? Yes MIGRATION.20125 20318 Information not available 04/20/2022 Have You Recently Traveled Abroad? No MIGRATION.16285 64661 Information not available 04/20/2022 Do You Or Have You Ever Used Any Other Forms Of Tobacco Or Nicotine? Yes Vape 0 Nicotine MIGRATION.97056 68216 Information not available 04/20/2022 Sex: Unknown Functional Status Question Answer Note LastModified by Organizat ion Details LastModified Time Do you have difficulty walking or climbing stairs? No Running into things-clum sy pt stated MIGRATION.099060 9461 Information not available 04/20/2022 Do you have transportation difficulties? No MIGRATION.126149 7330 Information not available 04/20/2022 Are you able to walk? YESWOREST MIGRATION.490564 0595 Information not available 04/20/2022 Do you have difficulty doing errands alone? No MIGRATION.666483 4391 Information not available 04/20/2022 Are you able to care for yourself? Yes MIGRATION.940621 2388 Information not available 04/20/2022 Do you have difficulty dressing or bathing? No MIGRATION.806475 7777 Information not available 04/20/2022 What is your exercise level? None MIGRATION.371420 4347 Information not available 04/20/2022 Mental Status Question Answer Note LastModified by Organizat ion Details LastModified Time Do you have difficulty concentrating, remembering or making decisions? No MIGRATION.[id number] 6 Information not available 04/20/2022 Family History Relationship Description Onset Age of this Age Resolved Age Notes LastModified by Organization Details LastModified Time Mother Kidney disease [email or web address] Not available 2023 09:14:35 Notes:cancer-mother Medical History Condition Response SKIN PROBLEMS Y DIABETES, TYPE Y USE OF NSAIDS Y Gynecological History Statement/Question Response How many live births 5 Dislike of Light during Menstrual Headac he N Menses Monthly N STIs/STDs N Current Control Method Menopause Breast Problems no Discharge no Obstetrics History GPAL:G 5 P 5 0 0 0 Type Value Full Term 5 Total 5 Immunizations Vaccine Type Date Status Note Provider Nam e and Address Organization Details Recorded Time Influenza, high-dose, quadrivalent, PF 3 completed Ce Hector RN null, [facility] 12/08/2022 11:49:45 COVID-19, mRNA, LNP-S, PF, shoaib-sucrose, 30 mcg/0.3 mL 3 completed Ce Hector RN null, [facility] 12/08/2022 11:50:25 RSV, recombinant, protein subunit RSVpreF, adjuvant reconstituted, 0.5 mL, PF 3 completed Ce Hector RN null, [facility] 01/09/2023 08:50:20 COVID-19, mRNA, LNP-S, PF, shoaib-sucrose, 30 mcg/0.3 mL 4 completed Bailee Perez RN null, [facility] 11/24/2023 08:40:45 Influenza, high-dose, trivalent, PF 4 completed Bailee Perez RN null, [facility] 11/24/2023 08:45:19 Influenza, split virus, trivalent, preservative 3 completed Melany Ruano CMA null, [facility] 09/01/2022 11:26:16 Influenza, split virus, trivalent, PF 3 completed Melany Ruano CMA null, [facility] 09/01/2022 11:26:16 Influenza, high-dose, quadrivalent, PF 2 completed Melany Ruano CMA null, [facility] 09/01/2022 11:26:16 COVID-19, mRNA, LNP-S, bivalent, PF, 30 mcg/0.3 mL dose 2 completed Melany Ruano CMA null, [facility] 09/01/2022 11:26:16 Hep A-Hep B 2 completed Melany Ruano CMA null, [facility] 09/01/2022 11:26:16 Influenza, split virus, trivalent, preservative 3 completed Not Available [facility] 04/20/2022 01:01:48 Influenza, high-dose, quadrivalent, PF 1 completed Not Available [facility] 04/20/2022 01:01:49 pneumococcal polysaccharide PPV23 0 completed Not Available [facility] 04/20/2022 01:01:49 Pneumococcal conjugate PCV 13 8 completed Not Available [facility] 04/20/2022 01:01:49 Influenza, split virus, quadrivalent, PF 7 completed Not [facility] 04/20/2022 01:01:49 Influenza, split virus, quadrivalent, PF 8 completed Not Available [facility] 04/20/2022 01:01:49 Tdap 4 completed Not Available [facility] 04/20/2022 01:01:49 Tdap 4 completed Katelyn Pearson RN null, [facility] 10/24/2023 09:34:20 Past Encounters Encounter ID Performer Location Encounter Start Date Encounter Closed Date Diagnosis/Indication Diagnosis SNOMED-CT Code Diagnosis ICD10 Code Diagnosis Note [id number] MARION Sterling [facility] [place] [address] [facility] [address] [place] [address] 02/29/2024 08:53:08 02/29/2024 09:52:30 Obstructive sleep apnea syndrome 00686973 G47.33 Diabetes mellitus 580200 09 E11.9 Decrease Ozempic to 1mg every week.Disco ntinue Farxiga while we wait for update A1c. Shoulder pain 60895717 M 25.[address] refill: 01/29/24UD S UTDlast appt: 02/29/24Pa tient will follow up in 3 months, sooner if needed. Health Concerns Section Related Observation LastModified by Organization Detai ls LastModified Time None Recorded Concern Status LastModified by Organization Details LastModified Time None Recorded Payers Encounter Date Sequence Insurance Name Policy Number Policy Benoit Covered Member ID Benoit Member ID Guarantor Name 02/29/2024 1 [employer] (MEDICARE REPLACEMENT PPO) [id number] Yaneth Duarte [id number] Yaneth Duarte Notes Date Note Type Note Provider Name and Address Organization Details Recorded Time 02/29/2024 text/html Patient is a 68 year old female that presents to the office for hospital follow up. Patient reports on February 08 she woke up on the floor and didn't know how she got there, went to [facility] by EMS, was admitted for 4 days. Patient states they didn't really do anything while I was there . Patient was suppose to have cardiac cath while in the hospital but it was not done, is scheduled for cardiac cath tomorrow. Patient reports she has not been able to keep her CPAP on while sleeping due to it not fitting properly. Patient's son reports that rn l and d in hospital does not think the episode was cardiac related but rather related to hypoxia from not having her CPAP on. Patient reports she has been trying to contact [facility] to schedule an appt for a new mask but has been unable to get through. Patient is concerned with fluctuation in blood sugar over the last week. Patient reports a couple times her blood sugars have been hitting 40 during the night and the alarm from her Dexcom wakes her up and she has to eat. Patient also reports the last two weeks she has had excessive diarrhea with the Ozempic, would like to decrease to 1mg. Patient had MRI on right shoulder and is needing surgery due to tear however she cannot have surgery until she gets through taking care of her current issue. Patient stopped taking Meloxicam and has been alternating Tylenol and Ibuprofen for pain which has not been helpful. Jess Lima, BLACK LEATHER BUFFER-C [address] [facility], [facility] [address], [place], [address], [place] - [facility] 02/29/2024 10:32:38 OBGyn Episode No OBEpisode recorded.
--- OUTSIDE RECORDS SUMMARY | 2024-03-08 00:41 | XMS_ITS | Encounter Summary ---
Author Organization [facility] Address [address] [place] [address]. [place] [address] [place] [address] Care Team Providers Care Nurse Orthopedic Name Role Phone Laura Grider MD Primary Care Provider [phone] Reason for Visit * Auth/Cert Specialty Diagnoses / Procedures Referred By Latoya t Referred To Contact Diagnoses H25.12 Procedures LEFT CATARACT REMOVAL WITH IOL IMPLANT Referral ID Status Reason Start Date Expiration Date Visits Re quested Visits Authorized [id number] 1 1 Encounter Details Date Type Department Care Team (Late st Contact Info) Description 10/31/2018 9:15 AM CDT - 10/31/2018 9:50 AM CDT Surgery [facility] [address] [place] [address] Jose Lorenzana MD [address] [facility] [address] [place] [address] LEFT CATARACT REMOVAL WITH IOL IMPLANT (toric) Surgery Details Date/Time Status Location OR Service Patient Class Case Class Case Type Trauma Case? 10/31/2018 9:15 AM Posted [facility] OR OR 2 Ophthalmology Short Stay/Outpat ient Surgery No Panel 1 Procedure LRB Anes Op Region Wound Class Comments LEFT CATARACT REMOVAL WITH IOL IMPLANT (toric) Left Monitor Anesthesia Care Eye Clean Surgeon Surgeon Role Service Panel Jose Lorenzana MD Primary Ophthalmology 1 Special Needs 7:30 documented in this encounter Social History Tobacco [...] Care Everywhere. * Cataract Removal Discharge Instructions (Kyrgyz) documented in this encounter Medications at Time [...] of this encounter H&P Notes * Jose M Hill, MD - 10/31/2018 8:05 AM CDT HISTORY AND PHYSICAL INTERVAL NOTE: I have reviewed Yaneth Duarte History & Physical which was performed within the past 30 days. After examining Yaneth Duarte, no change has occurred in the patient's condition since the H&P was completed. Informed Consent Discussion: Risks, benefits, alternatives as well as the consequences of not performing the surgery/procedure were discussed with the patient and/or family/personal maintenance representative. Questions were answered and the patient/family/personal maintenance representative verbalized understanding and desires to proceed. [...] MAR Action Action Date Dose Rate Site apraclonidine (IOPIDINE) 0.5 % ophthalmic solution As needed, Starting on Mon10/31/18 at 0914, Until Mon10/31/18 at 0924, Intra-Op Given 10/31/2018 9:14 AM CDT 1 drop besifloxacin (BESIVANCE) 0.6 % ophthalmic suspension 1 [...] Given 10/31/2018 7:51 AM CDT 0.1 mLs EPINEPHrine 0.3 mg in balanced salts (BSS) irrigation solution As needed, Starting on Mon10/31/18 at 0915, Until Mon10/31/18 at 0924, Intra-Op Given 10/31/2018 9:15 AM CDT 500 mLs flurbiprofen (OCUFEN) 0.03 % ophthalmic solution 1 drop 1 drop, Left Eye, Every 5 min, 3 doses, First dose on Mon10/31/18 at 0745, Last dose on Mon10/31/18 at 0755, Instill to operative eye, Pre-Op Given 10/31/2018 8:03 AM CDT 1 drop Given 10/31/2018 7:56 AM CDT 1 drop Given 10/31/2018 7:51 AM CDT 1 drop lidocaine (PF) (XYLOCAINE) 1 % injection As needed, Starting on Mon10/31/18 at 0906, Until Mon10/31/18 at 0924, Intra-Op Given 10/31/2018 9:06 AM CDT 1 mL methazolamide (NEPTAZANE) tablet 50 mg 50 mg, Oral, Once, 1 dose, On Mon10/31/18 at 1000, If NOT allergic to Sulfa, Post-Op Given 10/31/2018 9:37 AM CDT 50 m g moxifloxacin (VIGAMOX) 0.5 % ophthalmic solution As needed, Starting on Mon10/31/18 at 0915, Until Mon10/31/18 at 09, Intra-Op Given 10/31/2018 9:15 AM CDT 1 drop zmonmncw-nrqokoxgaq-abwqcwwha (NEOSPORIN) ophthalmic ointment As needed, Starting on Mon10/31/18 at 0915, Until Mon10/31/18 at 0924, Intra-Op Given 10/31/2018 9:15 AM CDT 1 mL phenylephrine (MYDFRIN) 2.5 % ophthalmic solution 1 drop 1 drop, Left Eye, Every 5 min, 3 doses, First dose on Mon10/31/18 at 0745, Last dose on Mon10/31/18 at 0755, Instill to operative eye, Pre-Op Given 10/31/2018 8:03 AM CDT 1 drop Given 10/31/2018 7:57 AM CDT 1 drop Given 10/31/2018 7:51 AM CDT 1 drop povidone-iodine (BETADINE) 5 % ophthalmic solution As needed, Starting on Mon10/31/18 at 0906, Until Mon10/31/18 at 0924, Intra-Op Given 10/31/2018 9:06 AM CDT 1 mL tropicamide (MYDRIACYL) 1 % ophthalmic solution 1 [...] at 0755, Instill to operative eye, Pre-Op 0751 (Given - Provid er: Bailee Lara RN)075 [...] at 0755, Instill to operative eye, Pre-Op 0751 (Given - Provid er: Bailee Lara RN)0756 [...] at 0914, Until Mon10/31/18 at 0924, Intra-Op 0914 (Given - Provid er: Jose Lorenzana MD) EPINEPHrine 0.3 mg in balanced salts (BSS) irrigation solution (CANCELED) As needed, Starting on Mon10/31/18 at 0915, Until Mon10/31/18 at 0924, Intra-Op 914 (Given - Provid er: Jose Lorenzana MD) lidocaine (PF) (XYLOCAINE) 1 % injection (CANCELED) As needed, Starting on Mon10/31/18 at 0906, Until Mon10/31/18 at 0924, Intra-Op 09 (Given - Provid er: Sol Deluna RN) moxifloxacin (VIGAMOX) 0.5 % ophthalmic solution (CANCELED) As needed, Starting on Mon10/31/18 at 0915, Until Mon10/31/18 at 0924, Intra-Op 0915 (Given - Provid er: Jose Lorenzana MD) zxeojhiv-lfcgrqcnqk-ammjukpvd (NEOSPORIN) ophthalmic ointment (CANCELED) As needed, Starting on Mon10/31/18 at 0915, Until Mon10/31/18 at 0924, Intra-Op 0915 (Given - Provid er: Jose Lorenzana MD) povidone-iodine (BETADINE) 5 % ophthalmic solution (CANCELED) As needed, Starting on Mon10/31/18 at 0906, Until Mon10/31/18 at 0924, Intra-Op 0906 (Given - Provid er: Sol Deluna RN) documented in this encounter Care Teams Nurse Orthopedic Relationship Specialty Start Date End Date Laura Grider MD [address] [place] [address] [place] [address] PCP - General FAMILY PRACTICE 08/24/18 documented as of this encounter
--- OUTSIDE RECORDS SUMMARY | 2024-03-08 00:41 | XMS_ITS | Clinical Summary ---
Author Organization [facility] Address [address] [place] [address]. [place] [address] [place] [address] Care Team Providers Care Systems Project Manager Name Role Phone Laura Grider MD Primary Care Provider [phone] Allergies Active Allergy Reactions Criticality Noted Date Comments Esme Perdue 08/22/2018 Medications metoprolol succinate ER 50 MG 24 hr tabletIndication s:reports for arryhythmia Take 50 mg by mouth nightly at bedtime. Active atorvastatin 40 MG tablet Take 40 mg by mouth nightly at bedtime. Active desvenlafaxine ER 100 MG TABLET SR 24 HR 24 hr tabletIndication s:Depression Take 100 mg by mouth nightly at bedtime. Active glyBURIDE 5 MG tablet Take 10 mg by mouth 2 (two) times daily with meals. Active aripiprazole 30 MG Tab tablet Take 1 tablet by mouth daily. Active doxycycline monohydrate 50 MG capsuleIndicatio ns:per Dr. Lam-unknown rationale for same Take 50 mg by mouth 2 (two) times daily. Active alprazolam 2 MG tablet Take 2 mg by mouth nightly as needed. Active amphetamine-dext roamphetamine 20 MG tablet Take 20 mg by mouth 2 (two) times daily. Active SITagliptin 50 MG tablet Take 50 mg by mouth daily. Active Family History Medical History Relation Comments Cancer Mother Relation Status Comments Mother Social History Tobacco Use Types Packs/Day Years [...] on file Sexual Orientation Not on file Last Filed Vital Signs Vital Sign Reading [...] Mass Index 29.29 10/26/2018 1:52 PM CDT Plan of Treatment Health Maintenance Due Date Last Done Comments Colorectal Cancer Screening Colonoscopy (10 Years) 1954 Hepatitis C 1972 DTaP, Tdap and Td Vaccines ( 1 - Tdap) 1973 Mammogram Screening 1994 Zoster Vaccines (1 of 2) 2004 Annual Medicare Wellness Visit 12/06/2019 Dexa Scan (General) 12/06/2019 Pneumococcal Vaccine: 65+ Ye ars (1 of 1 - PCV) 12/06/2019 COVID-19 Vaccine ( - 2023-2 5 season) 2023 Influenza Adult (#1) 2023 RSV Immunization or 60+ Years (1 - 1-dose 75+ series) 2029 Meningococcal Vaccine Aged Out No aamir anna eligible based on patient's age to complete this topic RSV Immunizations Under 20 Months Aged Out No longer eligible based on patient's age to complete this topic Medical Devices Implanted Type Area Surveillance Dual Rate Officer Device Identifier Shelf Expiration Date Model / Serial / Lot Knee Components Knee Components Knee Iol Toric Lens Sa6at5 - [id number] Implanted:Qty: 1 on 08/29/2018 by Marcus Lam MD at [facility] [employer] 08/19/2021 SA6AT5 / / Iol Toric Lens Sa6at3 - [id number] Implanted:Qty: 1 on 10/31/2018 by Marcus Lam MD at [facility] [employer] 08/19/2021 [id number] / [id number] / Insurance [employer] Care Teams Systems Project Manager Relationship Specialty Start Date End Date Laura Grider MD [address] [place] [address] [place] [address] PCP - General FAMILY PRACTICE 08/24/18
--- OUTSIDE RECORDS SUMMARY | 2024-03-08 00:41 | XMS_ITS | Data Portability ---
Author Organization [place] [facility], Main Office Address [address] [place] [address] Care Team Providers Care Computer Assistant Name Role Phone MARION GREGG ZACHARY Primary Care Provider [phone] MARION GREGG ZACHARY Referring Provider [phone] Assessment Encounter Date Assessment Date Assessment LastModified by Organization Details LastModified Time 12/13/2023 12/13/2023 68-year-old femnataly pedro presents for evaluation of her bilateral shoulders, right worse than left. She reports this has been going on for about 3 years. She denies any acute injury. She has difficulty with lifting and can only lift it minimal amount, she has difficulty dressing and putting on her bra. The left 1 has also recently started to bother her. She currently rates her pain as 8/10. She is right-hand dominant. She has been taking oxycodone 5 mg, which did not help, Aleve, ibuprofen, lidocaine patches, and Biofreeze. She also has done a course of physical therapy. She previously had cortisone injections, the last of which was several months ago. She wants a repeat cortisone injection today. She has a history of diabetes, A1c level 6.2. Review of systems per patient questionnaire Physical exam: She has tenderness over the AC joint and anterior shoulder. She can actively lift to proximally 30??. Full passive motion, positive drop-arm. Positive ER lag. Negative belly press. X-rays were reviewed, demonstrating no acute bony abnormalities, preserved glenohumeral joint space, subacromial spur Based on her history and exam findings, she likely has a chronic rotator cuff tear. She has pseudo paralysis. We discussed that we can continue conservative management she wanted to get another cortisone injection. We gave her an injection which she tolerated well and also gave her order for meloxicam. We discussed that these conservative measures did not work, then the surgical treatment would be reverse total shoulder arthroplasty. She is in agreement with the plan, follow-up as needed. [email or web address] Not available 12/13/2023 10:33:46 01/03/2024 01/03/2024 68-year-old female presents for re-evaluation of her bilateral shoulders, previously right worse than left, but now her left side is more painful. She reports this has been going on for about 3 years. She denies any acute injury. She has difficulty with lifting and dressing. She currently rates her pain as 6/10. She is right-hand dominant. The cortisone injection into the right shoulder helped the pain but she still lacks strength and full motion. She is taking tylenol and meloxicam, which does not help. She states she cannot sleep at night due to the pain and spasms. Physical exam: She has tenderness over the AC joint and anterior shoulder. She can actively lift to 90??. Full passive motion. Positve ashvin moyer hawkins. Sensation intact. For the left side, we will do a cortisone injection today. We will also try flexeril to help with pain and spasm at night. For the right, we discussed that if conservative measures do not work, then the surgical treatment would be reverse total shoulder arthroplasty. She is in agreement with the plan, follow-up as needed. [email or web address] Not available 01/03/2024 15:00:09 03/07/2024 03/07/2024 Assessment: Mild OSAHS, AHI = 9 Bullous emphysema 7 mm RUL nodule Plan: The following were reviewed and explained to the patient: [facility] home sleep study 06/23/21 AHI = 9, supine AHI = 10 [facility] titration sleep study 08/17/21 sleep onset = 14.5 minutes, REM onset = none, Respironics medium DreamWisp nasal mask @ 10 cmH2O, PLMI =10 [facility] split night sleep study 01/02/23 sleep onset = 5 minutes, AHI = 12, ResMed medium AirFit F30i full face mask @ 12 cmH2O, PLMI = 28 [facility] titration sleep study 05/10/23 sleep onset = 87 minutes, REM onset = 310 minutes, ResMed medium AirFit F30 full face mask @ 11 cmH2O, PLMI = 0.[address] 09/15/20 bullous emphysema, 7 mm RUL nodule Chest CT 10/06/21 bullous emphysema, 7 mm RUL nodule Chest CT 02/09/24 bullous emphysema, cardiomegaly, no P.EMiguelito [facility] hospitalization 02/10/24-02/13/24 NSTEMI, CHF Cough/Dyspnea workup will be done as follows: Respiratory allergen panel for [facility] Serum IgE Serum total IgG, IgG1, IgG2, IgG3, IgG4 Jhvqz-5-aphaapezvj n phenotype and level TB stimulated gamma interferon B-type natriuretic peptide (BNP) Eosinophil count Complete pulmonary function testing (PFT) Advised to continue not to smoke. Continue albuterol HFA as needed. The patient does not know how to accurately administer the inhaler. Today, the patient was shown how to take this medication. The proper technique for delivering this medication was instructed. The patient expressed a clear understanding and demonstrated back how to use this medication. Without the proper technique, the patient will not reap the benefits of the treatment as the contents of the inhaler will not reach the lower airways as intended to be. Adherence to therapy is advocated. Nonadherence may lead to treatment failure, further progression of the condition, and other complications. Hospitals admissions are often the result of individuals not taking prescription medications accurately. Alternatively, greater adherence to medication regimens have shown to lower rates of hospitalization and decrease total medical costs in patients with chronic medical conditions. PAP compliance downloaded and interpreted x 20 minutes. Data reviewed and explained to the patient. Average apnea/hypopnea index (AHI) is 1.4. Patient used PAP > 4 hours 50% of the time. PAP is set at 14 cmH2O. PAP will remain at 14 cmH2O. Oxygen supplementation: none Keep ramp off. 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 Keep humidifier level at 6. Patient is benefiting from PAP therapy. Encouraged patient to maintain PAP use more than 70% of the time. Statement of PAP use and benefits will be sent to the home care store. Educated the patient on problems and solutions associated with positive airway pressure (PAP) use. Difficulty tolerating pressure, mask leaks, intolerance of interface, nasal congestion, claustrophobic response, dry mouth, and unintentional mask removal during sleep were covered. Patient experiences claustrophobic response. Patient will practice wearing PAP mask daily while awake and undergo PAP desensitization. We will check fit of patient's mask and provide a sleeker alternative as necessary. Provided the patient with a list of local home care stores where positive airway pressure (PAP) units, accoutrement, and services are available. Home care store selection is based on patient's insurance carrier. Patient will setup an appointment with [facility] for supplies and pressure adjustments. A major predictor of success with use of PAP is follow-up with both the respiratory supplier and the treating physician. The download results can show the treating physician information about adherence to treatment, residual AHI while on treatment and presence of large mask leakage. This information is especially helpful if the patient has residual sleepiness despite treatment. General information on sleep disordered breathing, evaluation of sleep disordered breathing, treatment with PAP therapy, and living with PAP therapy were covered. We discussed with the patient the impact of weight on: Sleep disordered breathing Hypertension Hyperlipidemia DM OA We discussed with the patient the benefit of PAP therapy on: Sleep disordered breathing Mood disorder Chronic fatigue Rhinitis Hypertension DM Educated the patient on sleep hygiene measures. Relaxing rituals to rest easy, understanding foods with positive and negative impact on sleep, creating a peaceful sleep environment, timing of exercise, using herbal sleep aids, and practicing sleep-friendly meditation were covered. To determine how much sleep is needed, the patient will assess where she falls on the spectrum, examine what lifestyle factor such as stress is affecting the quality and quantity of sleep. In general, adults need 7-9 hours of sleep. Educated the patient regarding foods that promote sleep. These include but are not limited to cherries, bananas, toast, oatmeal, and warm milk. Educated the patient regarding foods and drinks to avoid before bedtime. These include but are not limited to aged cheese, chocolate, spicy foods, tomato-based sauces, soy, ginseng tea and processed meat. Advocated influenza vaccination annually and pneumonia vaccination DELON. Advocated weight loss through diet and exercise. Patient's ideal body weight according to height and gender is up to 150 lbs. Encouraged patient to adjust caloric intake to maintain/achieve ideal body weight, emphasizing on fruits, vegetables, whole grains, and fat-free or low-fat products. These include lean meats, poultry, fish, beans, eggs, and nuts and foods that are low in saturated fats, trans-fats, cholesterol, salt (sodium), and glycemic index. Stressed the importance of regular exercise up to the patient's capacity limits. In this case, we recommend 20 min daily walking, 2 days a week of resistance training. Patient to monitor BP daily and bring records to PCP for further management. Follow-up: 1 week after PFT [facility] Not available 03/07/2024 11:09:58 Plan of Treatment Reminders Order Date Submit Date Provider Last Modified By Organization Details Last Modified Time Details Appointments Any 30 2024 08:30A Stephanie Lima NP Not available Not available Not available Lab glycohemo globin, total, blood 2024 025 [email or web address] [facility] (Lab), [address] [place], [address], 02/29/2024 10:31:54 alpha-1-a ntitrypsi n (aat) phenotype , serum [address] (Lab), [address] [place], [address], 03/07/2024 10:55:56 BNP (B-type natriuret ic peptide), serum or plasma 2024 025 [facility] (Lab), [address] [place], [address], 03/07/2024 14:03:27 ige, total, serum [address] (Lab), [address] [place], [address], 03/07/2024 10:55:56 tb (M tuberculo sis), ifn-gamma aliza, blood [address] (Lab), [address] [place], [address], 03/07/2024 10:55:56 [address]cl[address] s 1+2+3+4, serum [address] (Lab), [address] [place], [address], 03/07/2024 10:55:56 respirato ry allergen panel, [facility] A, serum [address] (Lab), [address] [place], [address], 03/07/2024 10:55:56 respirato ry allergen panel - [facility] b [address] (Lab), [address] [place], [address], 03/07/2024 10:55:56 eosinophi ls, quant, blood [address] (Lab), [address] [place], [address], 03/07/2024 10:55:56 Referral pulmonolo gist referral - Please call patient to schedule an appointme nt. Thank you. 2024 025 Ronny Fulton MD, [address] [place], [address], 02/29/2024 10:31:54 Procedures injection /aspirati on joint/bur sa (PROC) 2023 024 [email or web address] In-Office Order, Internal Use Only DO Not Attach Compendium DO Not Attach Compendium, Do Not Delete/merge, [id number] 12/13/2023 10:03:08 injection /aspirati on joint/bur sa (PROC) 2023 024 [email or web address] In-Office Order, Internal Use Only DO Not Attach Compendium DO Not Attach Compendium, Do Not Delete/merge, [id number] 01/03/2024 09:43:10 Surgeries None recorded. Imaging XR, shoulder 2023 024 [facility], [address], [place], [address], 12/13/2023 23:37:07 Medication Orders bupivacai ne HCl 0.5 % (5 mg/mL) injection solution 2023 024 [place] [address], [address], [place], [address], 03/01/2024 13:33:18 Kenalog 10 mg/mL suspensio n for injection [address], [address] [facility], [place], [address], 03/01/2024 13:33:30 meloxicam 15 mg tablet [address], [address] [facility], [place], [address], 12/13/2023 23:37:07 cyclobenz aprine 10 mg tablet [address], [address] [facility], [place], [address], 01/03/2024 10:22:44 bupivacai ne HCl 0.5 % (5 mg/mL) injection solution [address], [address], [place], [address], 03/01/2024 13:33:18 Kenalog 10 mg/mL suspensio n for injection [address], [address] [facility], [place], [address], 03/01/2024 13:33:30 oxycodone -acetamin ophen 5 mg-325 mg tablet 2024 025 [email or web address] [facility] [address], [address], [place], [address], 02/29/2024 10:31:54 Patient TargetsNo targets recorded. Patient Instructions Encounter Date Encounter Id Patient Instructions Last Modified By Organization Details Last Modified Time 03/07/2024 [id number] complete PFT w/ post bronchodilator spirometry* [email or web address] Not available 03/07/2024 11:10:27 Reason for Referral Sheet Mill Supervisor Referral for O bstructive sleep apnea syndrome Please call patient to schedule an appointment. Thank you. Referring Physician: Jess Lima, Family Medicine, Encounter Date: 02/29/2024 Results Created Date Observation Date Name Description Value Unit Range Abnormal Flag Note LastModifiedBy Organization Detail LastModifiedTime 01/15/20 24 01/15/2024 urina lysis , dipst ick Leukocytes (reference range: negative ankit/??l) Small Not Available [address], [place], [address], 01/15/2024 14:25:16 01/15/20 24 01/15/2024 urina lysis , dipst ick Nitrite (reference rage: negative mg/dl) negati ve Not Available [address], [place], [address], 01/15/2024 14:25:16 01/15/20 24 01/15/2024 urina lysis , dipst ick Urobilinogen (reference range: 0.2-1 mg/dl) 0.[address] Not Available [address], [place], [address], 01/15/2024 14:25:16 01/15/20 24 01/15/2024 urina lysis , dipst ick Protein (reference range: negative mg/dl) Negati ve Not Available [address], [place], [address], 01/15/2024 14:25:16 01/15/20 24 01/15/2024 urina lysis , dipst ick pH (reference range: 5-7) 5.5 Not Available [address], [place], [address], 01/15/2024 14:25:16 01/15/20 24 01/15/2024 urina lysis , dipst ick Blood (reference range: negative Darrius/??l) Negati ve Not Available [address], [place], [address], 01/15/2024 14:25:16 01/15/20 24 01/15/2024 urina lysis , dipst ick Specific Monon (reference range: 1.005-1.030) 1.005 Not Available [address], [place], [address], 01/15/2024 14:25:16 01/15/20 24 01/15/2024 urina lysis , dipst ick Ketone (reference range: negative mg/dl) Negati ve Not Available [address], [place], [address], 01/15/2024 14:25:16 01/15/20 24 01/15/2024 urina lysis , dipst ick Bilirubin (reference range: negative mg/dl) Negati ve Not Available [address], [place], [address], 01/15/2024 14:25:16 01/15/20 24 01/15/2024 urina lysis , dipst ick Glucose (reference range: negative mg/dl) 500 Not Available [address], [place], [address], 01/15/2024 14:25:16 01/15/20 01/15/2024 urina lysis , dipst ick Appearance Slight ly Cloudy Not Available [facility] [address], [place], [address], 01/15/2024 14:25:16 01/15/20 24 01/15/2024 urina lysis , dipst ick Color Pale Yellow Not Available [facility] [address], [place], [address], 01/15/2024 14:25:16 12/13/19 XR, shoul mark No observ ation record ed. [email or web address] [facility] [place] [address] [facility] [address], [place], [address], 12/13/2023 09:17:57 02/09/20 24 02/09/2024 imagi ng/di agnos tic resul t No observ ation record ed. [address], [place], [address], 02/09/2024 06:31:48 02/09/20 24 02/09/2024 imagi ng/di agnos tic resul t No observ ation record ed. [address], [place], [address], 02/09/2024 06:39:16 02/09/20 24 02/09/2024 imagi ng/di agnos tic resul t No observ ation record ed. [address], [place], [address], 02/09/2024 07:07:16 02/09/20 24 02/09/2024 imagi ng/di agnos tic resul t No observ ation record ed. [address], [place], [address], 02/09/2024 08:39:10 02/10/20 24 02/10/2024 imagi ng/di agnos tic resul t No observ ation record ed. [facility] [address], [place], [address], 02/10/2024 16:54:29 02/16/20 24 02/15/2024 imagi ng/di agnos tic resul t No observ ation record ed. [facility] [address], [place], [address], 02/16/2024 09:56:53 03/01/19 25 02/09/2024 CT, chest , w/o contr ast No observ ation record ed. [facility] Not Available 2024 14:43:15 Result Notes None recorded. 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 Active Not Available [facility] 3 00:53:11 Osteoarthriti s 469766131 Active Not Available [facility] 3 00:53:11 Essential hypertension 64836024 Active Not Available [facility] 3 00:53:12 Allergic rhinitis 90909540 Active Not Available [facility] 3 00:53:12 Diabetes mellitus 62350859 Active Not Available [facility] 3 00:53:12 Obstructive sleep apnea syndrome 42399145 Active 2021 Not Available [facility] 3 00:53:12 Sj??gren's syndrome 47772961 Active Not Available [facility] 3 00:53:12 Ex-smoker 8495901 Active Not Available [facility] 3 00:53:12 Chronic ulcerative proctitis 40341765 Active 2022 Laura Grider MD [address] [place] [address], [place] [address], [place], [address] , [facility] [employer] [facility] 3 09:54:31 Vitamin D deficiency 64390854 Active 2022 Laura Grider MD [address], [place], [address] , [employer] 3 09:57:13 Hyperlipidemi a 40423668 Active 2022 Laura Grider MD [address], [place], [address] , [employer] [facility] 3 09:57:58 Mixed anxiety and depressive disorder 994027843 Active 2022 Laura Grider MD [address], [place], [address] , [employer] [facility] 3 15:40:00 Iron deficiency 58286242 Active 2023 ROBIN Orellana-C [address], [place] [address], [place], [address] , [employer] [facility] 4 09:52:22 Cobalamin deficiency 114046454 Active 2023 ROBIN Orellana-Unique [address], [place], [address] , [employer] [facility] 4 14:29:47 Dyspnea on exertion 12695482 Active 2024 Ronny Fulton MD [address], [place], [address] , [employer] [facility] 5 10:48:26 Notes:Medical History: Anxie ty/Bipolar depression/ADHD [...] 2004 Right knee replacement 2007 Cardiac catheterization 2025 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 Procedures Surgical History Date Name Laterality Status Provider Name and Address Organization Details Recorded Time 01/03/20 24 Ortho - Cortisone Injection completed Kathy Ross NP [address], [place], [address], [facility] [employer] [facility] 01/03/2024 15:00:40 12/13/19 24 Ortho - Cortisone Injection completed Flaco Denise MD [address], [place], [address], [email or web address] [facility] 12/13/2023 10:33:59 07/05/19 24 Cortisone Injection (Dequervains/ Greater Trochantric/ Lateral Epicondylitis/ Shoulder/ Subacromial Space/ Knee or Trigger Finger) completed Laura Grider MD [address], [place], [address], [employer] [facility] 07/05/2023 08:50:43 06/20/19 24 Transitional_Ca re_Management completed Ce Hector RN [email or web address] [facility] 06/20/2023 16:41:15 01/05/20 23 Cortisone Injection (Dequervains/ Greater Trochantric/ Lateral Epicondylitis/ Shoulder/ Subacromial Space/ Knee or Trigger Finger) completed Laura Grider MD [address], [place], [address], [facility] [employer] [facility] 01/19/2023 19:14:01 09/02/19 23 Cortisone Injection (Dequervains/ Greater Trochantric/ Lateral Epicondylitis/ Shoulder/ Subacromial Space/ Knee or Trigger Finger) completed SHARA Acosta [address], [place], [address], [employer] [facility] 08/31/2022 08:22:44 07/01/19 23 Colonoscopy completed Hope Zamora LPN [employer] [facility] 06/30/2022 14:35:15 Knee Replacement completed Not Available [employer] 04/20/2022 00:47:57 procedure on urinary bladder completed Not Available [facility] 04/20/2022 00:47:57 Knee Replacement completed Not Available [facility] 04/20/2022 00:47:57 Imaging Results Imaging Date Name Status LastModified by Organiz ation Details LastModified Time 12/13/2023 XR, shoulder completed [email or web address] [facility] [address] [facility] [address], [place], [address], 12/13/2023 09:17:57 02/09/2024 imaging/diagn ostic result active [address], [place], [address], 02/09/2024 06:31:48 02/09/2024 imaging/diagn ostic result active [address], [place], [address], 02/09/2024 06:39:16 02/09/2024 imaging/diagn ostic result active [address], [place], [address], 02/09/2024 07:07:16 02/09/2024 imaging/diagn ostic result active [address], [place], [address], 02/09/2024 08:39:10 02/10/2024 imaging/diagn ostic result active [address], [address], 02/10/2024 16:54:29 02/15/2024 imaging/diagn ostic result active [address], [address], 02/16/2024 09:56:53 02/09/2024 CT, chest, w/o contrast completed [facility] Information not available 03/01/2024 14:43:15 Procedure Notes None recorded. Medical Equipment None Reported. Allergies Allergen ID Allergen Name Allergen Category Reaction Reaction Severity Criticality Documentation Date Start Date Code Code System Note Provider Name and Address Organization Details Recorded Time 1284 [facility] n Not available Not available Not available 04/20/2022 79421 RxNorm OINT Not Available [facility] 3 01:02:05 1285 codeine medicatio n itching Not available Not available 04/20/2022 2670 RxNorm Not Available [facility] 3 01:02:05 Medications Name Sig Start [...] tablet every 72 hours by oral route. 12/12 completed Not Available [...] suspension for injection in office 03/01 completed [facility]: [id number] Not Available Not Available Not [...] propionate 50 mcg/actuat ion nasal spray,susp ension [place] 1 spray every day by intranasa l [...] Not Available Not Available Not Available Fluvirin 8970-1578 45 mcg (15 mcg x 3)/0.5 mL [...] Available Not Available [employer] KwikPen U-100 Insulin 100 unit/mL (3 mL) [...] 2nd Gen Pen Needle 32 gauge x 5/32 12/11 completed Not Available Not Available Not [...] height Body mass index (BMI) Body weight Provider Name and Address Organization Details Last Updated DateTime 12/13/2023 170.18 cm 27.4 kg/m2 93062.66 g Luceroarjun Christopher CNA [facility] [employer] [facility] 12/13/2023 09:11:17 Date Recorded Body height Provider Name an d Address Organization Details Last Updated DateTime 01/03/2024 170.18 cm Nola Choudhury [facility] [place] [facility] 01/03/2024 09:25:13 Date Recorded Body height Body mass index (BMI) Body weight Body temperature Provider Name and Address Organization Details Last Updated DateTime 02/29/2024 170.18 cm 26.6 kg/m2 31188.7 g 96.9 [degF] Ce Hector RN [facility] [place] [facility] 02/29/2024 09:05:40 Date Recorded Body height Body mass index (BMI) Body weight Body temperature Systolic blood pressure Diastolic blood pressure Provider Name and Address Organization Details Last Updated DateTime 170.18 cm 26.9 kg/m2 68524.8 9 g 97.2 [degF] 116 mm[Hg] 66 mm[Hg] Irma Chua MA [facility] [place] [facility] 5 10:23:09 Date Recorded Heart rate Oxygen saturation Oxygen saturation in Arterial blood by Pulse oximetry Heart rate Respiratory rate Provider Name and Address Organization Details Last Updated DateTime 5 92 /min 96 % 96 % 92 /min 15 /min Ronny Fulton MD [address] [facility] [address], [place], [address], [facility] [place] [facility] 5 10:30:48 Social History Question Answer Notes LastModified by Organizat ion Details LastModified Time Tobacco Smoking Status Former Smoker Not Available [employer] 04/20/2022 00:45:45 Do You Have An Advance Directive? Yes MIGRATION.50287 45227 Information not available 04/20/2022 What Is Your Level Of Alcohol Consumption? None MIGRATION.97946 27301 Information not available 04/20/2022 Are You Blind Or Do You Have Difficulty Seeing? No MIGRATION.97249 55897 Information not available 04/20/2022 What Is Your Level Of Caffeine Consumption? Occasional MIGRATION.08145 18927 Information not available 04/20/2022 How Much Tobacco Do You Chew? None MIGRATION.11642 72554 Information not available 04/20/2022 In The 14 Days Before Symptom Onset, Have You Had Close Contact With A Laboratory-confi rmed COVID-19 While That Case Was Ill? No MIGRATION.63232 49716 Information not available 04/20/2022 In The 14 Days Before Symptom Onset, Have You Had Close Contact With A Person Who Is Under Investigation For COVID-19 While That Person Was Ill? No MIGRATION.06893 49717 Information not available 04/20/2022 Are You Deaf Or Do You Have Serious Difficulty Hearing? No MIGRATION.45418 11383 Information not available 04/20/2022 What Type Of Diet Are You Following? REGULAR MIGRATION.02802 31600 Information not available 04/20/2022 Which Illicit Or Recreational Drugs Have You Used? None MIGRATION.29091 44391 Information not available 04/20/2022 Do You Or Have You Ever Used E-cigarettes Or Vape? Never Used Electronic Cigarettes MIGRATION.36374 37768 Information not available 04/20/2022 Do You Have An Electrostatic Air Filter? No MIGRATION.03064 48306 Information not available 04/20/2022 What Is Your Occupation? Retired MIGRATION.95733 04746 Information not available 04/20/2022 Do You Have A Humidifier? Yes MIGRATION.67985 90147 Information not available 04/20/2022 Do You Use Insect Repellent Routinely? Yes MIGRATION.21147 76175 Information not available 04/20/2022 Do You Have A Medical Power Of Director Payer? Yes MIGRATION.88466 47979 Information not available 04/20/2022 Do You Have Moisture Problems In Your Home? No MIGRATION.61231 72827 Information not available 04/20/2022 What Was The Date Of Your Most Recent Tobacco Screening? 03/07/2024 Information not available 03/07/2024 Do You Have Any Pets? Yes MIGRATION.71759 35705 Information not available 04/20/2022 Do You Use Your Seat Belt Or Car Seat Routinely? Yes Information not available 03/07/2024 Do You Have Smoke And Carbon Monoxide Detectors In Your Home? Yes MIGRATION.35557 88030 Information not available 04/20/2022 Are You Passively Exposed To Smoke? No MIGRATION.46745 29948 Information not available 04/20/2022 Do You Or Have You Ever Used Smokeless Tobacco? Never Used Smokeless Tobacco MIGRATION.17006 25476 Information not available 04/20/2022 How Much Tobacco Do You Smoke? No MIGRATION.37668 88884 Information not available 04/20/2022 Do You Feel Stressed (tense, Restless, Nervous, Or Anxious, Or Unable To Sleep At Night)? [id number] MIGRATION.97936 47046 Information not available 04/20/2022 Do You Use Any Illicit Or Recreational Drugs? No MIGRATION.29666 32852 Information not available 04/20/2022 Do You Use Sunscreen Routinely? Yes MIGRATION.98759 39571 Information not available 04/20/2022 Have You Recently Traveled Abroad? No MIGRATION.34589 22462 Information not available 04/20/2022 Do You Or Have You Ever Used Any Other Forms Of Tobacco Or Nicotine? Yes Vape 0 Nicotine MIGRATION.68065 79898 Information not available 04/20/2022 Sex: Unknown Functional Status Question Answer Note LastModified by [employer] Details LastModified Time Do you have difficulty walking or climbing stairs? No Running into The [employer]-clum sy pt stated MIGRATION.820441 0793 Information not available 04/20/2022 Do you have transportation difficulties? No MIGRATION.404339 3035 Information not available 04/20/2022 Are you able to walk? YESWOREST MIGRATION.682084 0242 Information not available 04/20/2022 Do you have difficulty doing errands alone? No MIGRATION.605622 7229 Information not available 04/20/2022 Are you able to care for yourself? Yes MIGRATION.699260 4913 Information not available 04/20/2022 Do you have difficulty dressing or bathing? No MIGRATION.208938 7173 Information not available 04/20/2022 What is your exercise level? None MIGRATION.301019 6510 Information not available 04/20/2022 Mental Status Question Answer Note LastModified by Organizat ion Details LastModified Time Do you have difficulty concentrating, remembering or making decisions? No MIGRATION.783703853 6 Information not available 04/20/2022 Family History [...] PF 3 completed Ce Hector RN null, [facility] 12/08/2022 11:49:45 COVID-19, mRNA, LNP-S, PF, shoaib-sucrose, 30 mcg/0.3 mL 3 completed Ce Hector RN null, [facility] 12/08/2022 11:50:25 RSV, recombinant, protein subunit RSVpreF, adjuvant reconstituted, 0.5 mL, PF 3 completed Ce Hector RN null, [facility] 01/09/2023 08:50:20 COVID-19, mRNA, LNP-S, PF, shoaib-sucrose, 30 mcg/0.3 mL 4 completed Bailee Perez RN null, [facility] 11/24/2023 08:40:45 Influenza, high-dose, trivalent, PF 4 completed Bailee Perez RN null, [facility] 11/24/2023 08:45:19 Influenza, split virus, trivalent, preservative 3 completed Melany Ruano CMA null, [facility] 09/01/2022 11:26:16 Influenza, split virus, trivalent, PF 3 completed Melany Ruano CMA null, [facility] 09/01/2022 11:26:16 Influenza, high-dose, quadrivalent, PF 2 completed Melany Ruano CMA null, [facility] 09/01/2022 11:26:16 COVID-19, mRNA, LNP-S, bivalent, PF, 30 mcg/0.3 mL dose 2 completed Melany Ruano CMA null, [place] [employer] [facility] 09/01/2022 11:26:16 Hep A-Hep B 2 completed Melany Ruano CMA null, [facility] [employer] [facility] 09/01/2022 11:26:16 Influenza, split virus, trivalent, preservative 3 completed Not Available [facility] 04/20/2022 01:01:48 Influenza, high-dose, quadrivalent, PF 1 completed Not Available [facility] 04/20/2022 01:01:49 pneumococcal polysaccharide PPV23 0 completed Not Available [facility] 04/20/2022 01:01:49 Pneumococcal conjugate PCV 13 8 completed Not Available [facility] 04/20/2022 01:01:49 Influenza, split virus, quadrivalent, PF 7 completed Not Available [facility] 04/20/2022 01:01:49 Influenza, split virus, quadrivalent, PF 8 completed Not Available [facility] 04/20/2022 01:01:49 Tdap 4 completed Not Available [facility] 04/20/2022 01:01:49 Tdap 4 completed Katelyn Pearson RN null, [facility] 10/24/2023 09:34:20 Past Encounters Encounter ID Performer Location Encounter Start Date Encounter Closed Date Diagnosis/Indication Diagnosis SNOMED-CT Code Diagnosis ICD10 Code Diagnosis Note [id number] [facility] [address] [place] [address] [place] [address] 04/28/2020 00:00:00 05/19/2020 18:02:06 [id number] [facility] [address] [facility] 140 [place] [address] 08/05/2020 00:00:00 08/19/2020 10:29:43 [id number] [facility] [address] [place] [address] [address] [place] [address] 11/10/2020 00:00:00 11/10/2020 12:10:22 [id number] [facility] [place] [address] [place] [address] 01/21/2021 00:00:00 02/15/2021 20:18:01 [id number] [facility] [address] [address] 02/01/2021 00:00:00 02/01/2021 09:50:16 [id number] [facility] [place] [address] [place] [address] 03/15/2021 00:00:00 03/15/2021 11:19:29 [id number] [facility] [place] [address] [place] [address] 04/21/2021 00:00:00 04/21/2021 09:50:14 [id number] [facility] [place] [address] [place] [address] 04/27/2021 00:00:00 04/27/2021 12:50:56 [id number] [facility] [place] [address] [place] [address] 05/25/2021 00:00:00 05/25/2021 09:37:56 [id number] [facility] [place] [address] [place] [address] 06/24/2021 00:00:00 06/24/2021 09:20:45 [id number] [facility] [place] [address] [place] [address] 09/20/2021 00:00:00 09/20/2021 09:44:35 [id number] [facility] Urology [address] [address] 09/30/2021 00:00:00 09/30/2021 11:32:16 [id number] [facility] [place] [address] [facility] [address] [place] [address] 10/06/2021 00:00:00 10/06/2021 09:00:46 [id number] [facility] [place] [address] [facility] [address] [place] [address] 12/13/2021 00:00:00 12/20/2021 16:32:54 [id number] [facility] [place] [address] [facility] [address] [place] [address] 12/14/2021 00:00:00 12/14/2021 09:15:49 [id number] [facility] [place] [address] [facility] [address] [place] [address] 12/28/2021 00:00:00 12/28/2021 09:28:37 [id number] [facility] [place] [address] [facility] [address] [place] [address] 01/05/2022 00:00:00 01/05/2022 11:11:29 [id number] [facility] [place] [address] [facility] 140 [place] [address] 02/09/2022 00:00:00 02/18/2022 10:23:37 [id number] [facility] [place] [address] [facility] 140 [place] [address] 03/22/2022 00:00:00 03/22/2022 09:27:18 [id number] Ronny Fulton MD [facility] [address] [address] 04/05/2022 00:00:00 09/01/2022 12:31:55 [id number] Larua Grider MD [facility] [place] [address] [facility] 140 [place] [address] 06/27/2022 09:30:47 06/27/2022 10:24:51 Attention deficit hyperactivity disorder 002381715 F90.9 stable, refill givenPt understand s this medication has risk for abuse/depe ndence and agrees to take it only as prescribed and to guard from loss/theft Essential hypertension 55998754 I10 Pain of ri ght shoulder joint 9184357726 1345599 M25.511 consent form signedrepe at injection performedp t tolerated well and was instructed to call if any s/s infection or worsening pain [id number] Laura Grider MD [facility] Primary [facility] [address] [address] 07/19/2022 10:05:37 07/19/2022 11:27:58 Tear of skin 102995728 T14.8XXA healing wellwill treat with abx given her diabetes and the size of the woundsoap and water daily, avoid pools, hot tubs, recreation al water until healedkeep moist and covered during the day, ok to leave open at nightf/u prn [id number] SHARA Acosta [facility] Primary Care [address] [address] 09/01/2022 11:09:07 09/01/2022 11:52:37 Pain of right shoulder joint 7780356806 3785807 M25.511 Consent form signed, repeat injection performed. Pt tolerated well and was instructed to call if any s/s infection or worsening pain.Due to needing injection again within 3 months, I have advised to f/u with ortho if they continue to wear off quicker and quicker. [id number] Laura Grider MD [facility] Primary [address] [address] 10/10/2022 09:38:55 10/10/2022 10:03:58 Chronic ulcerative proctitis 42919246 K51.[address] Cody lutz steroid suppositor yNow on mesalamine Diabetes mellitus 563321 09 E11.[address] Neal Essential hypertension 44710505 I10 Fatigue 13007898 R53.83 D64.9 Shoulder pain 52876088 M 25.519 refill given Vitamin D deficiency 347 63707 E55.9 Hyperlipidemia 60795526 E78.5 [id number] Laura Grider MD [facility] Primary [facility] [place] [address] [place] [address] 10/18/2022 14:01:58 10/18/2022 14:43:19 Fever 303591603 R50.9 check UAlabs drawn earlier this AMlikely viral syndromeca ll if no improvemen t or sooner if neededsu ortive care [id number] Laura Grider MD [facility] Primary Care [address] 140 [facility] [place] [address] 10/27/2022 10:31:31 10/27/2022 13:27:01 Cough 84626147 R05.9 cxr showed no acute issuesneg covid testcheck labs including d-dimerpt with persistent fatigue, cough, feverisho2 sat is consistent with her baseline, she is mildly tachycardi cpush fluids, rest, [facility] givenCT angiogram chest if d-dimer elevatedca ll/return if no improvemen t in 1-2 days or sooner if neededrevi ewed s/s that warrant urgent/bobby rgent eval in meantime [id number] Laura Grider MD [facility] Primary Care [address] 140 [place] [address] 12/20/2022 08:55:59 12/20/2022 09:43:21 Major depressive disorder 416597477 F32.9 Not in good controlcon tinue pristiq 100 mg dailyconti nue adderall 20 mg tidd/c aripiprazo letrial of vraylar 1.5 mg daily x 2 weeks then increase to 3 mg dailyrevie wed potential med s/ef/u in 4 weeks or sooner if needed Pain of ri ght shoulder joint 9761250151 1589994 M25.511 Prednisone taperheat, gentle stretching f/u in 2 weeks for injection if needed [id number] Laura Grider MD [facility] Primary Care [address] [place] [address] 01/04/2023 16:58:47 01/05/2023 17:19:21 Pain of right shoulder joint 9384088843 9338449 M25.511 injection today, tolerated wellpost injection instructio ns givencan return for repeat injection in 3 months if needed [id number] Laura Grider MD [facility] Primary Care [address] [place] [address] 01/18/2023 09:29:18 01/18/2023 09:53:52 Major depressive disorder 494790968 F32.9 Not in good controlcon tinue pristiq 100 mg dailyconti nue adderall 20 mg tidd/c aripiprazo letrial of vraylar 1.5 mg daily x 2 weeks then increase to 3 mg dailyrevie wed potential med s/ef/u in 4 weeks or sooner if needed update 01/18/23: increase vraylar 4.5 mg dailyf/u in 4 weeks Iron defic iency anemia 46103240 D50.9 cannot tolerate oral ironsees GIpersiste nt iron deficiency hematology referral given [id number] Laura Grider MD [facility] Primary Care [address] [place] [address] 03/08/2023 08:40:16 03/08/2023 09:22:14 Major depressive disorder 990957935 F32.9 Not in good controlcon tinue pristiq 100 mg dailyconti nue adderall 20 mg tidd/c aripiprazo letrial of vraylar 1.5 mg daily x 2 weeks then increase to 3 mg dailyrevie wed potential med s/ef/u in 4 weeks or sooner if needed update 01/18/23: increase vraylar 4.5 mg dailyf/u in 4 weeks update 03/08/23: much improved, continue vraylar 4.5 mg daily Iron defic iency anemia 36764726 D50.9 cannot tolerate oral ironsees GIpersiste nt iron deficiency update 03/08/23: tolerating [facility] labs [id number] Laura Grider MD [facility] Primary Care [address] 140 [place] [address] 04/05/2023 16:39:50 04/05/2023 17:56:08 Pain of right shoulder joint 1573369422 7201736 M25.511 injection today, tolerated wellpost injection instructio ns givencan return for repeat injection in 3 months if needed [id number] Laura Grider MD [facility] Primary Care [address] 140 [place] [address] 06/20/2023 16:31:44 06/20/2023 17:21:44 Transition of care 0136686841 105 Z75.8 Sepsis due to urinary tract infection 351735691 N39.0 reviewed notescardi ology does not think there was a cardiac eventurina ry sepsis, repeat labs [id number] Laura Grider MD [address] 140 [place] [address] 07/05/2023 08:10:44 07/05/2023 09:18:17 Laceration of right lower leg 5088532418 5004866 S81.811A keep elevatedso ap and water dailycall Monday if no improvemen t Pain of ri ght shoulder joint 3788883860 0632572 M25.511 injection today, tolerated wellpost injection instructio ns givencan return for repeat injection in 3 months if needed [id number] MARION Orellana [facility] Primary Care [address] [place] [address] 07/20/2023 14:30:03 07/20/2023 14:41:46 [id number] MARION Orellana [facility] Primary [address] [place] [address] 09/28/2023 09:30:51 09/28/2023 10:15:58 Dysuria 17705625 R30.0 urine dip positive for nitrites/l eukocytes Thyroid di sorder screening 156850132 Z13.29 Iron deficiency 84897525 E61.1 Anemia screening 07 Z13.0 Vitamin D deficiency 347 28368 E55.9 Long-term drug therapy 574437659 Z79.899 Pt denies any lending, selling, or borrowing of medication s. Denies any cp, sob, palpitatio ns, or unusual weight loss.Revie wed controlled substance agreement requiremen ts. Refill given.[place] PDMP checked today. [id number] MARION Orellana [facility] Primary Care [address] [place] [address] 10/24/2023 08:49:31 10/24/2023 09:20:46 Administration of diphtheria, pertussis, and tetanus vaccine 054011704 Z23 will be having addition to the family within a monthtdap given Dysuria 14883436 R30.0 Attention deficit hyperactivity disorder 243867745 F90.9 [id number] MARION Orellana [address] [place] [address] 11/09/2023 08:55:46 11/09/2023 09:16:23 [id number] MARION Orellana [facility] Care [address] [place] [address] 11/23/2023 13:51:40 11/23/2023 15:16:42 Chronic obstructive pulmonary disease 94098052 J44.9 noting increased dyspneauna ble to wear cpap last nighttrial trelegy Seasonal allergy 7353248 04 J30.2 Cobalamin deficiency 190 113901 E53.8 Pain of ri ght shoulder joint 0140284955 7207000 M25.511 pt requesting shoulder injectiond eclines oral steroidsor tho referral giventrial lidocaine patches Referral needed [id number] 9 Z76.89 [id number] Flaco Denies MD [facility] [place] [address] [place] [address] 12/13/2023 08:53:32 12/13/2023 10:40:27 Bilateral shoulder joint pain 1162561870 8553151 M25.511 M25.705 [id number] Kathy Ross NP [facility] [place] [address] [place] [address] 01/03/2024 09:22:30 01/03/2024 11:17:36 Pain of left shoulder joint 1293103246 5118317 M25.798 [id number] MARION Sterling [facility] Primary [place] [address] [facility] [address] [place] [address] 01/15/2024 14:31:36 01/15/2024 15:59:41 [id number] MARION Sterling [facility] [place] [address] [facility] [address] [place] [address] 02/29/2024 08:53:08 02/29/2024 09:52:30 Obstructive sleep apnea syndrome 68830443 G47.33 Diabetes mellitus 589079 09 E11.9 Decrease Ozempic to 1mg every week.Disco ntinue Farxiga while we wait for update A1c. Shoulder pain 19784272 M 25.[address] refill: 01/29/24UD S UTDlast appt: 02/29/24Pa tient will follow up in 3 months, sooner if needed. [id number] Ronny Fulton MD [facility] [place] [address] [facility] [address] [place] [address] 03/07/2024 10:00:47 03/07/2024 11:10:24 Dyspnea on exertion 39260222 R06.09 R05.9 T78.40XA D89.9 Health Concerns Section Related Observation LastModified by Organization Detai ls LastModified Time None Recorded Concern Status LastModified by Organization Details LastModified Time None Recorded Advance Directives Directive Y: Payers Encounter Date Sequence Insurance Name Policy Number Policy Benoit Covered Member ID Benoit Member ID Guarantor Name 12/13/2023 1 [employer] (MEDICARE REPLACEMENT PPO) [id number] Yaneth Duarte [id number] Yaneth Duarte 01/03/2024 1 [employer] (MEDICARE REPLACEMENT PPO) [id number] Yaneth Duarte [id number] Yaneth Duarte 01/15/2024 1 [employer] (MEDICARE REPLACEMENT PPO) [id number] Yaneth Duarte [id number] Yaneth Duarte 02/29/2024 1 [employer] (MEDICARE REPLACEMENT PPO) [id number] Yaneth Duarte [id number] Yaneth Duarte 03/07/2024 1 [employer] (MEDICARE REPLACEMENT PPO) [id number] Yaneth Duarte [id number] Yaneth Feliciano Gerald Notes Date Note Type Note Provider Name and Address Organization Details Recorded Time 02/29/2024 text/html Patient is a 68 year old female that presents to the office for hospital follow up. Patient reports on February 08 she woke up on the floor and didn't know how she got there, went to [facility] by EMS, was admitted for 4 days. [...] not fitting properly. Patient's son reports that moss gatherer in hospital does not think the episode was cardiac related but rather related to hypoxia from not having her CPAP on. Patient reports she has been trying to contact [facility] to schedule an appt for a new [...] for pain which has not been helpful. MARION Sterling [address] [facility] [address], [place], [address], [facility] 02/29/2024 10:32:38 03/07/2024 text/html Primary care/Ref erring provider: MARION Sterling CC: I was admitted to [facility] from 02/10/24-02/13/24 for NSTEMI and CHF. I am not using my Trelegy Ellipta because I don't feel like I need it. Patient is here to go over shortness of breath evaluation/management. Initial development of shortness of breath: 2013Duration of shortness of breath: 12 yearsCondition of shortness of breath: worseningTiming of shortness of breath: noneFrequency: up to 1 time a dayLimits activities: yesAggravating factors: walking, lying downAlleviating factors: rest Modified [employer] (mMRC) Dyspnea Scale - Grade 2Grade 0 ? I only get breathless with strenuous exercise? .Grade 1 ? I get short of breath when hurrying on the level or walking up a slight hill? .Grade 2 ? I walk slower than people of the same age on the level because of breathlessness or have to stop for breath when walking at my own pace on the level? .Grade 3 ? I stop for breath after walking about 100 yards or after a few minutes on the level? .Grade 4 ? I am too breathless to leave the house? or ? I am breathless when dressing? . Treatment history: Albuterol HFA as needed since 2012 Advair diskus 250/50/mcg 1 puff BID 2012-2013Symbicort HFA 160/4.5 mcg 2 puffs BID 2017 onlyTrelegy Ellipta 100/62.5/25 mcg 1 puff daily since 11/2023, not using Other symptoms:Drooling: noDysarthria: noNeck pain: noOdynophagia: noDysphagia: noWeak mastication: noFacial weakness: noNasal speech: noProtruding tongue: noProductive cough: noWheezing: noChest tightness: yesOrthopnea: noFrequent throat clearing or swallowing: noPalpitations: noHeartburn: noEdema: no Environmental exposures:Nicotine smoke: 1 ppd [id number] = 34 pack years; vaping without nicotinePaint: noDye: noDust mites: yesMold: noDamp basement: noWood burning stove: noAnimal dander: dogCockroaches: noPollen: yesArsenic: noAsbestos: noBeryllium: noCadmium: noChromium: noCoal smoke: noDiesel fumes: noNickel: noSilica: noSoot: no During the [facility] home sleep study on 06/23/21, AHI = 9.During the [facility] titration sleep study on 08/17/21, the patient uses a ResMed AirSense 11 autoset unit with heated humidification. The patient does not need the ramp to start low and go up slowly on the pressure anymore. There is no xerostomia in a.m. There is no hose/mask condensation with water.The patient wears a Respironics medium DreamWisp nasal mask without chin strap. There is no claustrophobia, no nostril/nose bridge irritation, no facial rash, no facial numbness, no nosebleeding.The patient feels more refreshed upon waking and daytime alertness is improved. Energy levels are sustained for the remainder of the day.At home, the patient sleeps from 9 pm to 6:10 am and wakes up with an alarm.Snoring: mildSnorting: noChoking: noCoughing: yesGasping: yesGagging: noSighing: noWitnessed apnea: yesTwitching or jerking of leg(s), arm(s), body, head: noTeeth grinding: noTeeth clenching: noSleeptalking: noSleepwalking: noSleep crying: noBedwetting: yesTongue/lip/gum/lucrecia k biting: noSleeping with open mouth: yesSleep paralysis: noHypnagogic hallucinations: noHypnopompic hallucinations: noVivid dreams: noDifficulty with sleep onset: noDifficulty with sleep maintenance: yesSleep interruptions: nocturia x 1Patient wakes up with: fatigue, confusion, cognitive impairment, mobility impairment, dexterity impairmentDaytime cataplexy: noMorning hypersomnolence: yesAfternoon hypersomnolence: yesCaffeine sources in diet: tea 1.5 cups per day, soda 1 can per dayAssociated medical and psychiatric conditions:Congestive heart failure: noCoronary artery disease: noMyocardial infarction: noHypertension: yesStroke: noBronchial asthma: noChronic obstructive pulmonary disease: noDepression: yesBipolar disorder: yesAnxiety: yesPanic disorder: noPosttraumatic stress disorder: noAttention deficit and hyperactivity disorder: yesObsessive Compulsive disorder: noSchizophrenia: noSchizoaffective disorder: noPersonality disorder: noChronic analgesic use: yes oxycodoneChronic sedative/hypnotic use: noEPWORTH SLEEPINESS SCALE (ESS)CHANCE OF DOZING SCORE0 = would never doze1 = slight chance of dozing2 = moderate chance of dozing3 = high chance of dozingSITUATION AND CHANCE OF DOZINGSitting and reading - 2Watching television - 2Sitting inactive in a public place (e.g. a theater or meeting) - 1As a passenger in a car for an hour without a break - 2Lying down to rest in the afternoon when circumstances permit - 2Sitting and talking to someone - 2Sitting quietly after lunch without alcohol - 1In a car, while stopped for a few minutes in the traffic - 0TOTAL SCORE 12Subjectively, patient has a moderate chance of dozing. Ronny Fulton MD [address] [place] [address], [place] [address], [place], [address], [place] - [facility] 03/07/2024 11:10:22 OBGyn Episode No OBEpisode recorded.
--- OUTSIDE RECORDS SUMMARY | 2024-03-08 00:42 | XMS_ITS | Encounter Summary ---
Author Organization [facility] Address [address] [place] [address]. [place] [address] [place] [address] Care Team Providers Care Knife Changer Name Role Phone Laura Grider MD Primary Care Provider [phone] Reason for Visit * Auth/Cert Specialty Diagnoses / Procedures Referred By Latoya erazo Referred To Contact Diagnoses H25.11 Procedures REMV CATARACT EXTRACAP,INSERT LENS RIGHT CATARACT REMOVAL WITH IOL IMPLANT Referral ID Status Reason Start Date Expiration Date Visits Re quested Visits Authorized [id number] 1 1 Encounter Details Date Type Department Care Team (Late st Contact Info) Description 08/29/2018 7:43 AM CDT Anesthesia Event [facility] Surgery [address] [place] [address] Nimisha Nuno CRNA [address] [place] [address] Anesthesia Record Procedure Summary Procedure Name Responsible Anesthesiologist Anesthesia Start Time Anesthesia Stop Time RIGHT CATARACT REMOVAL WITH IOL IMPLANT (Right: Eye) Nimisha Nuno CRNA 08/29/18 0743 08/29/18 0802 Events Date Time Event Comment 08/29/2018 0657 0657 AN CHIEF PROCUREMENT OFFICER Prepped 0743 An Start Patient ID and consent checked and patient reassessed. 0743 An Start Data 0743 Anesthesia Ready 0802 An Stop 0802 Post Anesthetic Care Handoff I completed my handoff to the receiving nurse during which we: 1. Identified the patient 2. Identified the responsible provider 3. Reviewed the pertinent medical history 4. Discussed the surgical course 5. Reviewed intra-op anesthesia management and issues during anesthesia 6. Set expectations for post-procedure period 7. Allowed opportunity for questions and acknowledgement of understanding. 0802 an stop data Meds Name Total midazolam (VERSED) 5 mg/mL injection 5 m g lidocaine (PF) (XYLOCAINE) 1% injection 10 mg * Agents Name O2 * Blood No blood administrations on file. Lines, Drains, and Airways Type Details Placement Removal Surgical/Incision 08/29/18; 075; Surgical Wound; Eye; Right; SHIELD EYE ADULT, TAPE PAPER 1 ; 08/29/18; 1027 08/29/18 0752 by Sol Deluna RN 08/29/18 1027 by Automatic Discharge Provider documented in this encounter Social History Tobacco Use Types Packs/Day Years Used Date Smoking Tobacco: Former Cigarettes Q uit: 08/23/2011 Smokeless Tobacco: Never Alcohol Use Standard Drinks/Week Comments No 0 [...] Postprocedure Evaluation - Nimisha Nuno CRNA - 08/29/2018 8:02 AM CDT Anesthesia Post-op Note Yaneth Duarte Procedure(s): RIGHT CATARACT REMOVAL WITH IOL IMPLANT (Right Eye) Anesthesia type: MAC Vitals: 08/29/18613 BP: 106/66 Vitals: 08/29/1814 Pulse: 79 Vitals: 08/29/18613 Resp: 16 Vitals: 08/29/18613 Temp: 36.6 ??C Vitals: 08/29/18613 SpO2: 90% Patient Location: PACU Level of Consciousness: awake, alert and oriented Pain Management: adequate analgesia Airway Patency: patent Respiratory Status: acceptable Cardiovascular Status: acceptable Post-Op Nausea: none Postoperative Hydration: euvolemic Complications: no anesthesia complication * Anesthesia Preprocedure Evaluation - Nimisha Nuno CRNA - 08/24/2018 11:04 AM CDT Anesthesia ROS/MED History Reviewed: Patient summary , Nursing notes , Family history anesthesia, Anesthesia history , Medications , Labs Pre-Anesthetic State: alert, awake and responds appropriately Pulmonary (+) smoker ROS comment: former Cardiovascular Exercise tolerance:poor (+) arrhythmia, hyperlipidemia Neuro/Psych (+) neuromuscular disease, depression GI/Hepatic/Renal Endo/Other (+) diabetes mellitus, obese Physical Evaluation Airway Mallampati: II TM Distance: >3 FB Neck ROM: normal Dental (caps) Pulmonary Breath sounds clear to auscultation Cardiovascular Rhythm: irregular Rate: normal Anesthesia Plan ASA 3 Induction Anesthesia type: MAC Informed Consent Anesthetic [...] 1 % injection Other, PRN, Starting on Mon08/29/18 at 0712, Until Mon08/29/18 at 0802, Anesthesia Intra-Op Given 08/29/2018 7:12 AM CDT 10 mg midazolam (VERSED) injection Nasal, PRN, Starting on Mon08/29/18 at 0712, Until Mon08/29/18 at 0802, Anesthesia Intra-Op Given 08/29/2018 7:12 AM CDT 5 mg documented in this encounter Care Teams Knife Changer Relationship Specialty Start Date End Date Laura Grider MD [address] [place] [address] PCP - General FAMILY PRACTICE 08/24/18 documented as of this encounter
--- OUTSIDE RECORDS SUMMARY | 2024-03-08 00:42 | XMS_ITS | Encounter Summary ---
Author Organization [facility] Address [address] [place] [address]. [place] [address] [place] [address] Care Team Providers Care Communications Marketing Intern Name Role Phone Laura Grider MD Primary Care Provider [phone] Reason for Visit * Auth/Cert Specialty Diagnoses / Procedures Referred By Latoya erazo Referred To Contact Diagnoses H25.11 Procedures REMV CATARACT EXTRACAP,INSERT LENS RIGHT CATARACT REMOVAL WITH IOL IMPLANT Referral ID Status Reason Start Date Expiration Date Visits Re quested Visits Authorized [id number] 1 1 Encounter Details Date Type Department Care Team (Latest Contact Info) Description 08/29/2018 5:51 AM CDT - 08/29/2018 8:27 AM T Hospital Encounter [facility] [address] [place] [address] Jose Lorenzana MD [address] [facility] [address] [place] [address] Desmond Alejandre MD [address] [place] [address] Discharge Disposition: Home or Self Care (Routine [...] Sign Reading Time Taken Comments Blood Pressure 107/57 08/29/2018 7:00 AM CDT Pulse 79 08/29/2018 7:00 AM CDT Temperature 36.6 ??C (97.9 ??F) 08/29/2018 6:14 AM CD T Respiratory Rate 16 08/29/2018 7:00 AM CDT Oxygen Saturation 95% 08/29/2018 7:00 AM CDT Inhaled Oxygen Concentration - - Weight 85.3 kg (188 lb) 08/22/2018 3:58 PM CDT Height 167.6 cm (5' 6 ) 08/22/2018 3:58 PM CDT Body Mass Index 30.34 08/22/2018 3:58 PM CDT documented in this encounter Discharge Instructions * Attachments The following attachments cannot be sent through Care Everywhere. * Cataract Removal Discharge Instructions (Botswanan) documented in this encounter Medications at Time of Discharge alprazolam 2 MG tablet Take 2 mg by mouth nightly as needed. amphetamine-dextr oamphetamine 20 MG tablet Take 20 mg by mouth 2 (two) times daily. aripiprazole 30 MG Tab tablet Take 1 tablet by mouth daily. atorvastatin 40 MG tablet Take 40 mg by mouth nightly at bedtime. desvenlafaxine ER 100 MG TABLET SR 24 HR 24 hr tabletIndications :Depression Take 100 mg by mouth nightly at bedtime. doxycycline monohydrate 50 MG capsuleIndication s:per Dr. Lorenzana-unknown rationale for same Take 50 mg by mouth 2 (two) times daily. glyBURIDE 5 MG tablet Take 10 mg by mouth 2 (two) times daily with meals. metoprolol succinate ER 50 MG 24 hr tabletIndications :reports for arryhythmia Take 50 mg by mouth nightly at bedtime. metFORMIN 500 MG tablet Take 1,000 mg by mouth nightly at bedtime. 10/26/2018 documented as of this encounter H&P Notes * Jose Lorenzana MD - 08/29/2018 6:28 AM CDT HISTORY AND PHYSICAL INTERVAL NOTE: I have reviewed Yaneth Duarte History & Physical which was performed within the past 30 days. After examining Yaneth Duarte, no change has occurred in the patient's condition since the H&P was completed. Informed Consent Discussion: Risks, benefits, alternatives as well as the consequences of not performing the surgery/procedure were discussed with the patient and/or family/personal agency service representative. Questions were answered and the patient/family/personal agency service representative verbalized understanding and desires to proceed. JOSE OLRENZANA MD documented in this encounter OR Notes * Op Note - Jose Lorenzana MD - 08/29/2018 6:28 AM CDT Date: 08/29/2018 Patient Name: Yaneth Duarte : 1955 Surgeon: JOSE LORENZANA MD. Preoperative Diagnosis: Cataract Right Postoperative Diagnosis: Cataract Right Name of Operation: Cataract Extraction (by Phacoemulsification) [...] Diagnosis Comments CATARACT REMOVAL WITH IOL IMPLANT 08/29/2018 7:38 AM CDT H25.11 Special Needs 0600 documented in this encounter Visit Diagnoses Not on filedocumented in this encounter Administered Medications Inactive Administered Medications - up to 3 most recent administrations Medication Order MAR Action Action Date Dose Rate Site besifloxacin (BESIVANCE) 0.6 % ophthalmic suspension 1 drop 1 drop, Right Eye, Every 5 min, 3 doses, First dose (after last reorder) on Mon08/29/18 at 0645, Last dose on Mon08/29/18 at 0655, Instill to operative eye, Pre-Op Given 08/29/2018 6:52 AM CDT 1 drop Given 08/29/2018 6:46 AM CDT 1 drop Given 08/29/2018 6:37 AM CDT 1 drop BUpivacaine (PF) (MARCAINE) 0.5 % injection 0.1 mL 0.1 mL, Ophthalmic, Every 5 min, 3 doses, First dose (after last reorder) on Mon08/29/18 at 0645, Last dose on Mon08/29/18 at 0655, Instill to operative eye, Pre-Op Given 08/29/2018 6:52 AM CDT 10 mL s Given 08/29/2018 6:46 AM CDT 0.1 mLs Given 08/29/2018 6:36 AM CDT 0.1 mLs Ri ght Eye flurbiprofen (OCUFEN) 0.03 % ophthalmic solution 1 drop 1 drop, Right Eye, Every 5 min, 3 doses, First dose (after last reorder) on Mon08/29/18 at 0645, Last dose on Mon08/29/18 at 0655, Instill to operative eye, Pre-Op Given 08/29/2018 6:47 AM CDT 1 eli p Given 08/29/2018 6:37 AM CDT 1 drop lactated ringers infusion at 10 mL/hr, Intravenous, Continuous, Starting on Mon08/29/18 at 0615, Until Mon08/29/18 at 1027, Pre-Op methazolamide (NEPTAZANE) tablet 50 mg 50 mg, Oral, Once, 1 dose, On Mon08/29/18 at 0830, Post-Op Given 08/29/2018 8:18 AM CDT 50 mg phenylephrine (MYDFRIN) 2.5 % ophthalmic solution 1 drop 1 drop, Right Eye, Every 5 min, 3 doses, First dose (after last reorder) on Mon08/29/18 at 0645, Last dose on Mon08/29/18 at 0655, Instill to operative eye, Pre-Op Given 08/29/2018 6:46 AM CDT 1 eli p Given 08/29/2018 6:38 AM CDT 1 drop tropicamide (MYDRIACYL) 1 % ophthalmic solution 1 drop 1 drop, Right Eye, Every 5 min, 3 doses, First dose (after last reorder) on Mon08/29/18 at 0645, Last dose on Mon08/29/18 at 0655, Instill to operative eye, Pre-Op Given 08/29/2018 6:47 AM CDT 1 eli p Given 08/29/2018 6:37 AM CDT 1 drop documented in this encounter Active and Recently Administered Medications Times are shown in CDT. Scheduled Medication Order 08/27/2018 08/28/2018 08/29/2018 besifloxacin (BESIVANCE) 0.6 % ophthalmic suspension 1 drop (COMPLETED) 1 drop, Right Eye, Every 5 min, 3 doses, First dose (after last reorder) on Mon08/29/18 at 0645, Last dose on Mon08/29/18 at 0655, Instill to operative eye, Pre-Op 0637 (Given - Provid er: Bonnie Whittington RN)0646 (Given - Provider: Bonnie Whittington RN)0652 (Given - Provider: Bonnie Whittington RN) BUpivacaine (PF) (MARCAINE) 0.5 % injection 0.1 mL (COMPLETED) 0.1 mL, Ophthalmic, Every 5 min, 3 doses, First dose (after last reorder) on Mon08/29/18 at 0645, Last dose on Mon08/29/18 at 0655, Instill to operative eye, Pre-Op 0636 (Given - Provid er: Bonnie Whittington RN)0646 (Given - Provider: Bonnie Whittington RN)0652 (Given - Provider: Bonnie Whittington RN) flurbiprofen (OCUFEN) 0.03 % ophthalmic solution 1 drop 1 drop, Right Eye, Every 5 min, 3 doses, First dose (after last reorder) on Mon08/29/18 at 0645, Last dose on Mon08/29/18 at 0655, Instill to operative eye, Pre-Op 0637 (Given - Provid er: Bonnie Whittington RN)0647 (Given - Provider: Bonnie Whittington RN)0655 (Due) methazolamide (NEPTAZANE) tablet 50 mg (COMPLETED) 50 mg, Oral, Once, 1 dose, On Mon08/29/18 at 0830, Post-Op 0818 (Given - Provid er: Tramaine Ayala RN) phenylephrine (MYDFRIN) 2.5 % ophthalmic solution 1 drop 1 drop, Right Eye, Every 5 min, 3 doses, First dose (after last reorder) on Mon08/29/18 at 0645, Last dose on Mon08/29/18 at 0655, Instill to operative eye, Pre-Op 0638 (Given - Provid er: Bonnie Whittington RN)0646 (Given - Provider: Bonnie Whittington RN)0655 (Due) tropicamide (MYDRIACYL) 1 % ophthalmic solution 1 drop 1 drop, Right Eye, Every 5 min, 3 doses, First dose (after last reorder) on Mon08/29/18 at 0645, Last dose on Mon08/29/18 at 0655, Instill to operative eye, Pre-Op 0637 (Given - Provid er: Bonnie Whittington RN)0647 (Given - Provider: Bonnie Whittington RN)0655 (Due) Continuous Medication Order 08/27/2018 08/28/2018 08/29/2018 lactated ringers infusion at 10 mL/hr, Intravenous, Continuous, Starting on Mon08/29/18 at 0615, Until Mon08/29/18 at 1027, Pre-Op 0615 (Canceled Entry - Provider: Automatic Discharge Provider - Comment: Automatically canceled at discontinue of medication order) PRN Medication Order 08/27/2018 08/28/2018 08/29/2018 apraclonidine (IOPIDINE) 0.5 % ophthalmic solution (CANCELED) As needed, Starting on Mon08/29/18 at 0748, Until Mon08/29/18 at 0803, Intra-Op 0748 (Given - Provid er: Jose Lorenzana MD - Comment: at end of case) EPINEPHrine 0.3 mg in balanced salts (BSS) irrigation solution (CANCELED) As needed, Starting on Mon08/29/18 at 0749, Until Mon08/29/18 at 0803, Intra-Op 0749 (Given - Provid er: Jose Lorenzana MD - Comment: hung for case/phaco) lidocaine (PF) (XYLOCAINE) 1 % injection (CANCELED) As needed, Starting on Mon08/29/18 at 0749, Until Mon08/29/18 at 0803, Intra-Op 0749 (Given - Provid er: Jose Lorenzana MD - Comment: used prior to prep and to sterile field) moxifloxacin (VIGAMOX) 0.5 % ophthalmic solution (CANCELED) As needed, Starting on Mon08/29/18 at 0750, Until Mon08/29/18 at 0803, Intra-Op 0750 (Given - Provid er: Jose Lorenzana MD - Comment: at end of case per MD) aadbmkzx-iocsbshzlr-dgmfnjhwz (NEOSPORIN) ophthalmic ointment (CANCELED) As needed, Starting on Mon08/29/18 at 0751, Until Mon08/29/18 at 0803, Intra-Op 0751 (Given - Provid er: Jose Lorenzana MD - Comment: placed at end of case by MD) povidone-iodine (BETADINE) 5 % ophthalmic solution (CANCELED) As needed, Starting on Mon08/29/18 at 0750, Until Mon08/29/18 at 0803, Intra-Op 0750 (Given - Provid er: Jose Lorenzana MD - Comment: for eye prep) documented in this encounter Care Teams Communications Marketing Intern Relationship Specialty Start Date End Date Laura Grider MD [address] [place] [address] [place] [address] PCP - General FAMILY PRACTICE 08/24/18 documented as of this encounter
--- OUTSIDE RECORDS SUMMARY | 2024-03-08 00:42 | XMS_ITS | Encounter Summary ---
Author Organization [facility] Address [address] [place] [address]. [place] [address] [place] [address] Care Team Providers Care Senior Administrative Services Officer Name Role Phone Laura Grider MD Primary Care Provider [phone] Reason for Visit * Auth/Cert Specialty Diagnoses / Procedures Referred By Latoya t Referred To Contact Diagnoses H25.11 Procedures REMV CATARACT EXTRACAP,INSERT LENS RIGHT CATARACT REMOVAL WITH IOL IMPLANT Referral ID Status Reason Start Date Expiration Date Visits Re quested Visits Authorized [id number] 1 1 Encounter Details Date Type Department Care Team (Late st Contact Info) Description 08/29/2018 7:30 AM CDT - 08/29/2018 8:05 AM CDT Surgery [facility] [address] [place] [address] Jose Lorenzana MD [address] [facility] [address] [address] RIGHT CATARACT REMOVAL WITH IOL IMPLANT Surgery Details Date/Time Status Location OR Service Patient Class Case Class Case Type Trauma Case? 08/29/2018 7:30 AM Posted [facility] OR OR 2 Ophthalmology Short Stay/Outpat ient Surgery No Panel 1 Procedure LRB Anes Op Region Wound Class Comments RIGHT CATARACT REMOVAL WITH IOL IMPLANT Right Monitor Anesthesia Care Eye Clean Surgeon Surgeon Role Service Panel Jose Lorenzana MD Primary Ophthalmology 1 Special Needs 0600 documented in this encounter Social History Tobacco [...] Care Everywhere. * Cataract Removal Discharge Instructions (Surinamese) documented in this encounter Medications at Time [...] Notes * Jose M Hill, MD - 08/29/2018 6:28 AM CDT HISTORY [...] were discussed with the patient and/or family/personal financial sales representative. Questions were answered and the patient/family/personal financial sales representative verbalized understanding and desires to proceed. [...] % ophthalmic solution As needed, Starting on Mon08/29/18 at 0748, Until Mon08/29/18 at 0803, Intra-Op Given 08/29/2018 7:48 AM CDT 1 drop besifloxacin (BESIVANCE) 0.6 [...] AM CDT 0.1 mLs Ri ght Eye EPINEPHrine 0.3 mg in balanced salts (BSS) irrigation solution As needed, Starting on Mon08/29/18 at 0749, Until Mon08/29/18 at 0803, Intra-Op Given 08/29/2018 7:49 AM CDT 500 mLs flurbiprofen (OCUFEN) 0.03 [...] at 0615, Until Mon08/29/18 at 1027, Pre-Op lidocaine (PF) (XYLOCAINE) 1 % injection As needed, Starting on Mon08/29/18 at 0749, Until Mon08/29/18 at 0803, Intra-Op Given 08/29/2018 7:49 AM CDT 2 mLs Right Eye methazolamide (NEPTAZANE) tablet 50 mg 50 mg, Oral, Once, 1 dose, On Mon08/29/18 at 0830, Post-Op Given 08/29/2018 8:18 AM CDT 50 mg moxifloxacin (VIGAMOX) 0.5 % ophthalmic solution As needed, Starting on Mon08/29/18 at 0750, Until Mon08/29/18 at 0803, Intra-Op Given 08/29/2018 7:50 AM CDT 1 drop bqomjuxl-hemufjhose-sscojqyps (NEOSPORIN) ophthalmic ointment As needed, Starting on Mon08/29/18 at 0751, Until Mon08/29/18 at 0803, Intra-Op Given 08/29/2018 7:51 AM CDT 1 mg phenylephrine (MYDFRIN) 2.5 % ophthalmic solution 1 drop 1 drop, Right Eye, Every 5 min, 3 doses, First dose (after last reorder) on Mon08/29/18 at 0645, Last dose on Mon08/29/18 at 0655, Instill to operative eye, Pre-Op Given 08/29/2018 6:46 AM CDT 1 drop Given 08/29/2018 6:38 AM CDT 1 drop povidone-iodine (BETADINE) 5 % ophthalmic solution As needed, Starting on Mon08/29/18 at 0750, Until Mon08/29/18 at 0803, Intra-Op Given 08/29/2018 7:50 AM CDT 3 drops tropicamide (MYDRIACYL) 1 % ophthalmic solution 1 [...] Comment: at end of case per MD) btcildkg-fonxwaznuj-uorsnylza (NEOSPORIN) ophthalmic ointment (CANCELED) As needed, Starting [...] prep) documented in this encounter Care Teams Senior Administrative Services Officer Relationship Specialty Start Date End Date Laura Grider MD [address] [place] [address] [place] [address] PCP - General FAMILY PRACTICE 08/24/18 documented as of this encounter
--- OUTSIDE RECORDS SUMMARY | 2024-03-08 00:43 | XMS_ITS | Encounter Summary ---
Author Organization [facility] Healthcare Address [address] [place] [address] Care Team Providers Care Garment Liner Name Role Phone Cammie Woodruff OD Unavailable Carline Ramires NP Primary Care Provider [phone] Osmany Foster MD Unavailable [phone] Encounter Details Date Type Department Care Team (Late st Contact Info) Description 02/19/2024 Orders Only [facility] Medical Group Cardiology [address] [place] [address] Nereyda Guthrie MD [address] [address] Social History Tobacco Use Types Packs/Day Years Used Date Smoking Tobacco: Former Cigarettes 1 39 1 971 - 2009 Smokeless Tobacco: Never Alcohol Use Standard Drinks/Week Comments No 0 (1 standard drink = 0.6 oz pur e alcohol) PHQ-2 Answer Date Recorded PHQ-2 Total Score (If total score is 3 or more points, staff should administer the PHQ-9) 0 09/04/2023 Comments Unknown Sex and Gender Information Value Date Recorded Sex Assigned at Not on file 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 Gender Identity Not on file Sexual Orientation Not on file documented as of this encounter Plan of Treatment Not on file documented as of this encounter Visit Diagnoses Not on filedocumented in this encounter Care Teams Garment Liner Relationship Specialty Start Date End Date Carline Ramires NP [address] [place] [address] PCP - General Family Medicine 08/18/23 Cammie Woodruff OD [address] [place] [address] Optometry 03/13/19 Osmany Foster MD [address] [place] [address] Referring Physician Gastroenterology 08/18/23 [facility] Endocrinology 08/18/23 documented as of this encounter
--- OUTSIDE RECORDS SUMMARY | 2024-03-08 00:43 | XMS_ITS | Encounter Summary ---
Author Organization [facility] Healthcare Address [address] [place] [address] Care Team Providers Care Air Brakes Inspector Name Role Phone Cammie Woodruff OD Unavailable [phone] Carline Ramires NP Primary Care Provider [phone] Osmany Foster MD Unavailable [phone] Reason for Visit * Reason Onset Date Comments Diarrhea 08/25/2023 Rectal Bleeding 08/25/2023 Encounter Details Date Type Department Care Team (Late st Contact Info) Description 08/25/2023 Nurse Triage [facility] Medical Group Primary Care at [address] [address] Carline Ramires NP [address] [place] [address] [address] [place] [address] Social History Tobacco Use Types Packs/Day Years [...] on file 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 * Telephone Encounter - Kath Carvalho MA - 08/25/2023 2:23 PM CDT Called and spoke with patient, advised she go to [facility] to be seen since no provider in office. Patient stated I'll think about it * Telephone Encounter - Bailee Driscoll RN - 08/25/2023 11:01 AM CDT Patient started with diarrhea x 4 days. Was having about 8 loose stools a day. Has noticed small amount of blood on the tissue when she wipes. She is drinking plenty of water daily. She is taking Pepto Bismol for mild nausea. She did take imodium twice this morning. Has had three loose stools and feels like she is having less loose stools today than yesterday. Has known hemorrhoids. Hx of UC Denies fever, abdominal pain, vomiting. Has a wound care appt on 09/26/23. 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 Patient declines UC appt. She would like to know what KIM Ramires or Dr. Xavier recommends given her history. She really doesn't want to go to UC/ED. She was hoping to be seen by KIM Ramires. Routing to office for determination. Continue with good fluid intake. Can continue with prep H wipes. Only take imodium as recommended on box. Call back if you have additional questions or concerns. Call back if symptoms change, persist or worsen. Preferred Pharmacy [facility] [address] [id number] [facility] [id number] Reason for Disposition SEVERE diarrhea (e.g., 7 or more times / day more than normal) and present > 24 hours (1 day) Protocols used: [id number] * Telephone Encounter - Bailee Driscoll RN - 08/25/2023 10:57 AM CDT Regarding: Diarrhea, bloody ----- Message from Repair Report sent at 08/25/2023 10:57 AM CDT ----- Symptom Based Call Chief Complaint(s): Diarrhea, bloody Duration: 4 days What type of symptom(s) is the patient experiencing? Red Flag. Is the patient concerned they are experiencing a medical emergency requiring an ambulance? No Additional Comments: Patient stated she believes the blood may possibly be from her hemorrhoids Does message need to be routed? Yes-Action Needed ----- Message from Repair Report sent at 08/25/2023 10:56 AM CDT ----- Symptom Based Call Chief Complaint(s): Diarrhea, bloody Duration: 4 days What type of symptom(s) is the patient experiencing? Red Flag. Is the patient concerned they are experiencing a medical emergency requiring an ambulance? No Additional Comments: Patient stated she believes the blood may possibly be from her hemorrhoids Does message need to be routed? 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
--- OUTSIDE RECORDS SUMMARY | 2024-03-08 00:43 | XMS_ITS | Encounter Summary ---
Author Organization [facility] Healthcare Address [address] [place] [address] Care Team Providers Care Seasoner Hand Name Role Phone Cammie Woodruff OD Unavailable Carline Ramires NP Primary Care Provider [phone] Osmany Foster MD Unavailable [phone] Encounter Details Date Type Department Care Team (Late st Contact Info) Description 08/21/2023 Orders Only [facility] Medical Group Primary Care at [address] [address] Carline Ramires NP [address] [place] [address] [address] [place] [address] Social History Tobacco Use Types Packs/Day Years Used Date Smoking Tobacco: Former Cigarettes 1 39 1 971 - 2010 Smokeless Tobacco: Never Alcohol Use Standard Drinks/Week Comments No 0 (1 standard drink = 0.6 oz pur e alcohol) PHQ-2 Answer Date Recorded PHQ-2 Total Score (If total score is 3 or more points, staff should administer the PHQ-9) 0 08/18/2023 Comments Unknown Sex and Gender Information Value Date Recorded Sex Assigned at Not on file Legal Sex Female 3:03 AM [employer] DIRECTOR Gender Identity Not on file Sexual Orientation Not on file documented as of this encounter Ordered Prescriptions Prescription Sig Dispense Quantity Refills Last Filled Start Date End Date doxycycline (VIBRAMYCIN) 100 mg capsule Take 1 tablet/caps ule (100 mg total) by mouth 2 (two) times a day for 10 days 20 tablet/capsule 08/21/2023 08/31/2023 documented in this encounter Plan of Treatment Not on file documented as of this encounter Visit Diagnoses Not on filedocumented in this encounter Discontinued Medications Medication Sig Discontinue Reason Start Date End Da te clindamycin (CLEOCIN) 150 mg capsule Take 1 capsule (150 mg total) by mouth 3 (three) times a day for 10 days 08/18/2023 08/21/2023 clindamycin (CLEOCIN) 300 mg capsule Take 1 capsule (300 mg total) by mouth 3 (three) times a day for 10 days 08/18/2023 08/21/2023 documented as of this encounter Additional Health Concerns Infection Onset Date Last Indicated Resolved Time MRSA Comment:R leg wound 08/04/23 08/04/2023 08/04/2023 01/31/2024 3 :05 AM [employer] DIRECT[employer] documented as of this encounter Care Teams Seasoner Hand Relationship Specialty Start Date End Date Carline Ramires NP [address] [facility] [address] [place] [address] PCP - General Family Medicine 08/18/23 Cammie Woodruff OD [address] [place] [address] Optometry 03/13/19 Osmany Foster MD [address] [place] [address] Referring Physician Gastroenterology 08/18/23 [facility] Endocrinology 08/18/23 documented as of this encounter
--- OUTSIDE RECORDS SUMMARY | 2024-03-08 00:43 | XMS_ITS | Encounter Summary ---
Author Organization [facility] Healthcare Address [address] [place] [address] Care Team Providers Care Ball Mill Operator Name Role Phone Cammie Woodruff OD Unavailable Carline Ramires NP Primary Care Provider [phone] Osmany Foster MD Unavailable [phone] Reason for Visit * Reason Onset Date Comments Medical Question/Miscellaneous 08/25/2023 Encounter Details Date Type Department Care Team (Late st Contact Info) Description 08/25/2023 Telephone [facility] Medical Group Primary Care at [address] [address] Carline Ramires NP [address] [place] [address] [address] [place] [address] Medical Question/Miscellaneous Social History Tobacco Use Types Packs/Day Years [...] on file Legal Sex Female 3:03 AM 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 Verified that patient is taking the oral antibiotic. Patient was also in agreement with seeing [place] wound clinic. * Telephone Encounter - Carline Ramires NP - 08/25/2023 3:07 PM CDT Refilled Mupirocin, should be taking the oral antibiotic (Doxycycline). I placed new referral to wound clinic in [place] to see if they can get her in before September. * Telephone Encounter - Yoselyn Zapata - 08/25/2023 10:46 AM CDT Medical Question/Miscellaneous Caller???s Concern: Patient called to notify the office that she cannot be seen in Wound Care untilSeptember 25. Patient is inquiring what she should do in the meantime. She stated she has been using Mupirocin cream that she was prescribed from the Urgent Care is inquiring if it can be refilled at the pharmacy on file Please call and advise Does message need to be routed? Yes-Action Needed documented in this encounter Plan of Treatment Not on file documented as of this encounter Visit Diagnoses Not on filedocumented in this encounter Additional Health Concerns Infection Onset Date Last Indicated Resolved Time MRSA Comment:R leg wound 08/04/23 08/04/2023 08/04/2023 01/31/2024 3 :05 AM GREEN BUILDING ENERGY ENGINEER documented as of this encounter Care Teams Ball Mill Operator Relationship Specialty Start Date End Date Carline Ramires NP [address] [facility] [address] [place] [address] PCP - General Family Medicine 08/18/23 Cammie Woodruff OD [address] [place] [address] Optometry 03/13/19 Osmany Foster MD [address] [facility] [address] [place] [address] Referring Physician Gastroenterology 08/18/23 [facility] Endocrinology 08/18/23 documented as of this encounter
--- OUTSIDE RECORDS SUMMARY | 2024-03-08 00:43 | XMS_ITS | Encounter Summary ---
Author Organization [facility] Healthcare Address [address] [place] [address] Care Team Providers Care Biology Department Chair Name Role Phone Cammie Woodruff OD Unavailable [phone] Carline Ramires NP Primary Care Provider [phone] Osmany Foster MD Unavailable [phone] Reason for Referral * Consultation (Routine) - Authorized Specialty Diagnoses / Procedures Referred By Contac t Referred To Contact Pulmonary Disease / Pulmonology Diagnoses Chronic obstructive pulmonary disease, unspecified COPD type (HCC) Keisha Persaud NP [address] [facility] [address] [place] [address] Phone: tel: fax: Radha Xavier MD [address] [facility] [address] [place] [address] Phone: tel: fax: Referral ID Status Reason Start Date Expiration Date Visits Requested Visits Authorized [id number] Authorized Specialty Services Required 4 03/21/2025 1 1 Question Answer Please select the performing region: External Order [171] To loc/pos [facility] [[id number]] To provider: RADHA XAVIER [[id number]] # of visits: 1 Comments COPD, CHINO GEMENT ASSOCIATE Reason for Visit * Reason Comments Hospital Follow Up [facility] f/ u Dx: NSTEMI. Pt c/o chest pain Encounter Details Date Type Department Care Team (Late st Contact Info) Description 02/20/2024 11:00 AM MANAGEMENT ASSOCIATE Office Visit [facility] Medical Group Cardiology [address] [place] [id number] Keisha Persaud NP [address] [place] [address] Heart failure with preserved ejection fraction, unspecified HF chronicity (HCC) (Primary Dx); Chronic obstructive pulmonary disease, unspecified COPD type (HCC); Mixed hyperlipidemia; Primary hypertension Social History Tobacco Use Types Packs/Day Years [...] on file Legal Sex Female 3:03 AM MANAGEMENT ASSOCIATE Gender Identity Not on file Sexual Orientation Not on file documented as of this encounter Last Filed Vital Signs Vital Sign Reading Time Taken Comments Blood Pressure 116/70 02/20/2024 11:03 AM MANAGEMENT ASSOCIATE Pulse 93 02/20/2024 11:03 AM MANAGEMENT ASSOCIATE Temperature - - Respiratory Rate - - Oxygen Saturation 92% 02/20/2024 11:03 AM MANAGEMENT ASSOCIATE Inhaled Oxygen Concentration - - Weight 78 kg (171 lb 14.4 oz) 02/20/2024 11:03 A M MANAGEMENT ASSOCIATE Height 170.2 cm (5' 7 ) 02/20/2024 11:03 AM MANAGEMENT ASSOCIATE Body Mass Index 26.92 02/20/2024 11:03 AM MANAGEMENT ASSOCIATE documented in this encounter Patient Instructions * Patient Instructions* Keisha Persaud NP - 02/20/2024 11:00 AM MANAGEMENT ASSOCIATE Common warning signs of a heart attack: 1. Chest discomfort. Most heart attacks involve discomfort in the center of the chest that lasts more than a few minutes, or that goes away and comes back. It can feel like uncomfortable pressure, squeezing, fullness or pain. 2. Discomfort or pain in the jaw, neck, or back. 3. Discomfort or pain in one or both arms and/or shoulders. 4. Shortness of breath with or without chest discomfort. 5. Other - lightheadedness, nausea/vomitting, a cold sweat. There are changes that could mean you are having congestive heart failure. Usually someone experiences 2 or more of the following changes: 1. Shortness of breath (usually occurs with activity, with laying flat, and/or wakes you from sleep) 2. Swelling (usually in feet, ankles, legs, abdomen, or overall rapid weight gain) 3. Persistent coughing or wheezing (sometimes with white or pink mucus) 4. Feeling more tired or fatigued with routine activities 5. Poor appetite, feeling full or bloated, or nauseated GEMENT ASSOCIATE GEMENT ASSOCIATE documented in this encounter Progress Notes * Keisha Persaud NP - 02/20/2024 11:00 AM CST [facility] Medical Group Cardiology [address] [place] [address] Date of Visit: 02/20/2024 Patient ID: Yaneth Duarte [id number] Chief Complaint: Yaneth Duarte is a 68 y.o. female who comes to the office for a hospital follow up for CHF History of Present Illness: Yaneth Duarte is a 68 y.o. female who was admitted to [facility] on 02/10/2024 with weakness, altered mental status, and difficulty ambulating. This is a patient with history of type 2, obstructive sleep apnea not compliant with CPAP, hypertension, hyperlipidemia, COPD/emphysema, obesity, bipolar disorder, and anxiety. Cardiology was consulted because of CHF and elevated troponin levels. She improved clinically with IV diuresis and her troponin levels were not felt to be related to ACS as she was not reporting any anginal symptoms. However, due to multiple risk factors, pursuing outpatient ischemic evaluation was discussed. An echocardiogram performed during her hospitalization showed normal LV systolic function with grade I diastolic dysfunction, no focal wall motion abnormalities. 02/20/2024 Hospital follow-up with KIM - Yaneth Feliciano Gerald comes to the office today for a hospital follow up visit. She is complaining of fatigue. States she has been using her CPAP regularly but continues to have excessive daytime sleepiness. She also has some dizziness when she transitions from a sit ting/lying position to standing but has not had any syncope. Says she has chest pain a little bit - location of pain is below her left breast and lasts for 5- 10 seconds. No other associated symptoms. EKG in the office today showed normal sinus rhythm. Records that I personally reviewed on the day of this visit include: (the interpretation is outlined in the HPI above) Records from the above mentioned hospital admission. I have also reviewed: allergies, current medications, past family history, past medical history, past social history, past surgical history and problem list Review of Systems Constitutional: Positive for malaise/fatigue. Negative for fever, night sweats, weight gain and weight loss. HENT: Negative for hearing loss. Eyes: Negative for blurred vision and visual disturbance. Cardiovascular: Negative for chest pain, claudication, dyspnea on exertion, irregular heartbeat, leg swelling, near-syncope, orthopnea, palpitations, paroxysmal nocturnal dyspnea and syncope. Respiratory: Negative for shortness of breath, sleep disturbances due to breathing, snoring and wheezing. Hematologic/Lymphatic: Negative for bleeding problem. Musculoskeletal: Negative for muscle cramps and muscle weakness. Gastrointestinal: Negative for abdominal pain, change in bowel habit, diarrhea, nausea and vomiting. Genitourinary: Negative for hematuria. Neurological: Positive for excessive daytime sleepiness and dizziness. Negative for headaches. Vital Signs: BP 116/70 (BP Location: Left arm, Patient Position: Sitting) Pulse 93 Ht 170.2 cm (5' 7 ) Wt 78 kg (171 lb 14.4 oz) SpO2 92% BMI 26.92 kg/m?? Body mass index is 26.92 kg/m??. Physical Exam Vitals reviewed. Constitutional: General: She is not in acute distress. HENT: Head: Normocephalic and atraumatic. Eyes: Extraocular Movements: Extraocular movements intact. Conjunctiva/sclera: Conjunctivae normal. Cardiovascular: Rate and Rhythm: Normal rate and regular rhythm. Heart sounds: Normal heart sounds. Pulmonary: Effort: Pulmonary effort is normal. No respiratory distress. Breath sounds: Normal breath sounds. No wheezing or rales. Abdominal: General: Bowel sounds are normal. Palpations: Abdomen is soft. Musculoskeletal: General: Normal range of motion. Cervical back: Normal range of motion and neck supple. Right lower leg: No edema. Left lower leg: No edema. Skin: General: Skin is warm and dry. Neurological: Mental Status: She is alert and oriented to person, place, and time. Allergies Allergen Reactions Triamcinolone Unknown Bactrim [Sulfamethoxazole-Trimethoprim] Joint pain Codeine Itching Current Outpatient Medications: acetaminophen (TYLENOL) 500 mg tablet, Take 1 tablet (500 mg total) by mouth every 6 (six) hours asneeded for pain, Disp: , Rfl: ARIPiprazole (ABILIFY) 30 mg tablet, Take 1 tablet (30 mg total) by mouth nightly, Disp: , Rfl: aspirin 81 mg enteric coated tablet, Take 1 tablet (81 mg total) by mouth daily, Disp: , Rfl: atorvastatin (LIPITOR) 40 mg tablet, Take 1 tablet (40 mg total) by mouth nightly, Disp: , Rfl: blood-glucose meter,continuous (Dexcom G7 Joint Supervisor) [facility], , Disp: , Rfl: cyclobenzaprine (FLEXERIL) 10 mg tablet, Take 1 tablet (10 mg total) by mouth 3 (three) times a dayas needed, Disp: , Rfl: desvenlafaxine ER (PRISTIQ) 100 mg 24 hr tablet, , Disp: , Rfl: dextroamphetamine-amphetamine (ADDERALL) 20 mg tablet, 1 tablet (20 mg total), Disp: , Rfl: Farxiga 10 mg tablet, , Disp: , Rfl: furosemide (LASIX) 40 mg tablet, Take 1 tablet (40 mg total) by mouth 2 (two) times a day, Disp: , Rfl: meloxicam (MOBIC) 15 mg tablet, Take 1 tablet (15 mg total) by mouth daily With food. Do not take with other NSAIDS (ibuprofen, naproxen, ect.), Disp: 90 tablet, Rfl: 1 metoprolol XL (TOPROL-XL) 50 mg 24 hr tablet, Take 1 tablet (50 mg total) by mouth nightly, Disp: ,Rfl: Ozempic 2 mg/dose (8 mg/3 mL) pen injector injection, , Disp: , Rfl: potassium chloride ER 20 mEq CR tablet, Take 1 tablet (20 mEq total) by mouth 2 (two) times a day, Disp: , Rfl: ustekinumab (STELARA) injection, Inject 0.5 mL (45 mg total) under the skin every 3 (three) months,Disp: , Rfl: BASAGLAR KWIKPEN U-100 INSULIN 100 unit/mL (3 mL) insulin pen, Inject 18 Units under the skin nightly (Patient not taking: Reported on 02/20/2024), Disp: , Rfl: clotrimazole (MYCELEX) 10 mg hans, , Disp: , Rfl: hydrocortisone 2.5 % cream, , Disp: , Rfl: mesalamine (LIALDA) 1.2 gram EC tablet, , Disp: , Rfl: mupirocin (BACTROBAN) 2 % ointment, Apply topically 3 (three) times a day (Patient not taking: Reported on 02/20/2024), Disp: 22 g, Rfl: 1 Lab Results Component Value Date POTASSIUM 4.0 09/04/2023 BUNSER 10 09/04/2023 CREATININE 0.57 (L) 09/04/2023 CHOL 126 08/18/2023 TRIG 160 (H) 08/18/2023 LDLCALC 64 08/18/2023 HDL 30 (L) 08/18/2023 Assessment: Diagnoses and all orders for this visit: Heart failure with preserved ejection fraction, unspecified HF chronicity (HCC) (Primary) Chronic obstructive pulmonary disease, unspecified COPD type (HCC) - Ambulatory referral to Pulmonology; Future Mixed hyperlipidemia Primary hypertension She appears euvolemic and in fact dry on exam today. She was discharged on 40mg furosemide twice daily. We can discontinue the furosemide for now and use low dose furosemide on an as needed basis. New diagnosis of COPD during hospitalization. Will refer to pulmonology for management of COPD, CHINO. Recommended follow up with PCP in the meantime but she states she does not have a PCP. Continue statin and lifestyle modifications Blood pressure at goal. She is scheduled for a left heart cath next week with Dr. Odonnell because of CAD risk factors, mild troponin elevation during hospitalization, fatigue which may be anginal equivalent. She should return to the office to see Dr. Odonnell in 3 months or earlier if needed. Keisha RUIZ- Nurse Practitioner with [facility] This note is dictated and transcribed using [employer] Fluency Direct Software. Sociocultural Anthropology Professor variancesmay occur. Despite proofreading, typographical errors may occur. GEMENT ASSOCIATE documented in this encounter Miscellaneous Notes * Addendum Note - Melany Catalan MA - 02/20/2024 11:00 AM CSTAddended by: MELANY CATALAN on: 03/06/2024 03:19 PM Modules accepted: Orders GEMENT ASSOCIATE documented in this encounter Plan of Treatment Scheduled Referrals Name Type Priority Associated Diagnoses Orde r Schedule Ambulatory referral to Pulmonology Outpatient Referral Routine Chronic obstructive pulmonary disease, unspecified COPD type (HCC) Expected: 03/05/2024 (Approximate), Expires: 02/19/2025 documented as of this encounter Procedures Procedure Name Priority Date/Time Associated Diagnosis Comments ECG 12-LEAD Routine 02/20/2024 3:18 PM MANAGEMENT ASSOCIATE Chronic obstructive pulmonary disease, unspecified COPD type (HCC) documented in this encounter Results * ECG 12 lead (02/20/2024 3:18 PM MANAGEMENT ASSOCIATE) Keisha Persaud NP ECG ORDERABLES Final Result documented in this encounter Visit Diagnoses Diagnosis Heart failure with preserved ejection fraction, unspecified HF chronicity (HCC)- Primary Chronic obstructive pulmonary disease, unspecified COPD type (HCC) Mixed hyperlipidemia Primary hypertension Unspecified essential hypertension documented in this encounter Discontinued Medications Medication Sig Discontinue Reason Start Date End Da te furosemide (LASIX) 40 mg tablet Take 1 tablet (40 mg total) by mouth 2 (two) times a day Therapy completed 02/20/2024 documented as of this encounter Historical Medications * This list may reflect changes made after this encounter. blood-glucose meter,continuous (Dexcom G7 Joint Supervisor) misc acetaminophen (TYLENOL) 500 mg tablet Take 1 tablet (500 mg total) by mouth every 6 (six) hours as needed for pain ustekinumab (STELARA) injection Inject 0.5 mL (45 mg total) under the skin every 3 (three) months cyclobenzaprine (FLEXERIL) 10 mg tablet Take 1 tablet (10 mg total) by mouth 3 (three) times a day as needed 01/03/2024 aspirin 81 mg enteric coated tablet Take 1 tablet (81 mg total) by mouth daily potassium chloride ER 20 mEq CR tablet Take 1 tablet (20 mEq total) by mouth 2 (two) times a day furosemide (LASIX) 40 mg tablet Take 1 tablet (40 mg total) by mouth 2 (two) times a day 02/20/2024 added in this encounter Care Teams Biology Department Chair Relationship Specialty Start Date End Date Carline Ramires NP [address] [facility] [address] [place] [address] PCP - General Family Medicine 08/18/23 Cammie Woodruff OD [address] [place] [address] Optometry 03/13/19 Osmany Foster MD [address] [facility] [address] [place] [address] Referring Physician Gastroenterology 08/18/23 [facility] Endocrinology 08/18/23 documented as of this encounter
--- OUTSIDE RECORDS SUMMARY | 2024-03-08 00:43 | XMS_ITS | Encounter Summary ---
Author Organization [facility] Healthcare Address [address] [place] [address] Care Team Providers Care Silk Finisher Name Role Phone Cammie Woodruff OD Unavailable [phone] Carline Ramires NP Primary Care Provider [phone] Osmany Foster MD Unavailable [phone] Reason for Referral * Procedure (Routine) - Closed Specialty Diagnoses / Procedures Referred By Contac t Referred To Contact Cardiology Diagnoses Cardiomyopathy, unspecified type (HCC) Keisha Persaud NP [address] [address] Phone: tel: fax: [facility] Medical Group Cardiology [address] [address] Phone: tel: fax: Referral ID Status Reason Start Date Expiration Date V isits Requested Visits Authorized [id number] Closed Specialty Services Required 02/20/2024 08/21/2024 1 1 Question Answer Please select the performing region: [facility] Medical Group [[id number]] Please select the performing department: [facility] CARD CH MRYVL [[id number]] # of visits: 1 Comments PROCEDURE/TEST ORDERED:[facility] LOCATION: DATE OF SERVICE:03/01 INSURANCE:[employer] Medicare DIAGNOSIS:Cardiomyopathy ORDERING PROVIDER:Blas ADDITIONAL DETAILS: OR MEDIA PLANNER Reason for Visit * Reason Onset Date Comments Fatigue 02/19/2024 weakness 02/19/2024 Encounter Details Date Type Department Care Team (Late st Contact Info) Description 02/19/2024 Telephone [facility] Medical Group Cardiology [address] [place] [address] Seema Veras NP [address] [place] [address] Fatigue; weakness Social History Tobacco Use Types Packs/Day Years [...] on file Legal Sex Female 3:03 AM SENIOR MEDIA PLANNER Gender Identity Not on file Sexual Orientation Not on file documented as of this encounter Miscellaneous Notes * Telephone Encounter - Jess Villela RN - 02/20/2024 11:59 AM SENIOR MEDIA PLANNER OMAR Per CK scheduled pt for [facility] with RP at on 03/01 at 0830. Reviewed instructions with pt and her son and they verbalized understanding. Sent referral to Dr. Xavier's office as well and provided pt with her phone number to call and schedule if she doesn't hear from her office within the next 2 weeks. OR MEDIA PLANNER * Telephone Encounter - Jess Villela RN - 02/19/2024 4:39 PM SENIOR MEDIA PLANNER Spoke with pt, she was discharged last week from . Pt said they were planning to cath her before discharge and they were unable to do so and they let her go home for the holidays and scheduled f/u.Pt said since being home she has been extremely tired, she sleeps most of the day. She has a little pain in her chest that goes away on its own after 10 seconds or so. Pt said she is SOB with exertion. Pt has a BP cuff but it is not working. Pt said she is worried about getting this cath done anddoesn't feel good. She would like to be seen sooner than next week if possible. Scheduled pt to seeCK tomorrow. Pt appreciated the callback and assistance. OR MEDIA PLANNER * Telephone Encounter - Jess Villela RN - 02/19/2024 2:11 PM SENIOR MEDIA PLANNER Tried calling pt but no answer and no voicemail. Will try again later. OR MEDIA PLANNER * Telephone Encounter - Jess Villela RN - 02/19/2024 11:57 AM SENIOR MEDIA PLANNER Tried calling pt but no answer and no voicemail. Will try again later. OR MEDIA PLANNER * Telephone Encounter - Richa Van - 02/19/2024 10:36 AM CST Patient calling in to schedule follow up (discharged from [facility] on 02/12). Got patient scheduledon 02/[address] (soonest follow up appt). Patient stating that she is extremely fatigued and can barely keep her eyes opened and she's very weak. Requesting a call back to further discuss and to be seen sooner. Please advise. Thank you. Contact [phone] OR MEDIA PLANNER documented in this encounter Plan of Treatment Scheduled Referrals Name Type Priority Associated Diagnoses Orde r Schedule Ambulatory referral to Cardiology Outpatient Referral Routine Cardiomyopathy, unspecified type (HCC) Expected: 02/27/2024 (Approximate), Expires: 02/19/2025 documented as of this encounter Visit Diagnoses Diagnosis Cardiomyopathy, unspecified type (HCC)- Primary documented in this encounter Care Teams Silk Finisher Relationship Specialty Start Date End Date Carline Ramires NP [address] [place] [address] PCP - General Family Medicine 08/18/23 Cammie Woodruff OD [address] [place] [address] Optometry 03/13/19 Osmany Foster MD [address] [place] [address] Referring Physician Gastroenterology 08/18/23 [facility] Endocrinology 08/18/23 documented as of this encounter
--- OUTSIDE RECORDS SUMMARY | 2024-03-08 00:43 | XMS_ITS | Encounter Summary ---
Author Organization [facility] Healthcare Address [address] [place] [address] Care Team Providers Care Can Cutter Name Role Phone Cammie Woodruff OD Unavailable aCrline Ramires NP Primary Care Provider [phone] Osmany Foster MD Unavailable [phone] Encounter Details Date Type Department Care Team (Late st Contact Info) Description 08/25/2023 Orders Only [facility] Medical Group Primary Care at [address] [address] Carline Ramires NP [address] [place] [address] [address] [place] [address] Social History Tobacco Use Types [...] on file Legal Sex 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 Gender Identity Not on file Sexual Orientation Not on file documented as of this encounter Ordered Prescriptions Prescription Sig Dispense Quantity Refills Last Filled Start Date End Date mupirocin (BACTROBAN) 2 % ointment Apply topically 3 (three) times a day 22 g 1 08/25/2023 documented in this encounter Plan of Treatment Not on file documented as of this encounter Visit Diagnoses Not on filedocumented in this encounter Additional Health Concerns Infection Onset Date Last Indicated Resolved Time MRSA Comment:R leg wound 08/04/23 08/04/2023 08/04/2023 01/31/2024 3 :05 AM CALENDER INSPECTOR documented as of this encounter Care Teams Can Cutter Relationship Specialty Start Date End Date Carline Ramires NP [address] [facility] [address] [place], [place] [id number] PCP - General Family Medicine 08/18/23 Cammie Woodruff OD [address] [place] [address] Optometry 03/13/19 Osmany Foster MD [address] [place], [place] [id number] Referring Physician Gastroenterology 08/18/23 [facility] Endocrinology 08/18/23 documented as of this encounter
--- OUTSIDE RECORDS SUMMARY | 2024-03-08 00:43 | XMS_ITS | Encounter Summary ---
Author Organization [facility] Healthcare Address [address] [place] [address] Care Team Providers Care Auto Self Service Station Attendant Name Role Phone KacyCammie OD Unavailable Carline Ramires ASSOCIATE DIRECTOR OF BIOSTATISTICS Primary Care Provider [phone] Osmany Foster MD Unavailable [phone] Reason for Visit * Reason Comments Chart Review Pt has non [facility] pcp Encounter Details Date Type Department Care Team (Late st Contact Info) Description 02/16/2024 NHUNG IP Outreach [facility] Accountable Care Organization [address] [place] [address] Yolanda Parkinson MA [address] [place] [address] [address] [place] [address] Social History Tobacco Use Types Packs/Day Years [...] on file 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 Gender Identity Not on file Sexual Orientation Not on file documented as of this encounter Plan of Treatment Not on file documented as of this encounter Visit Diagnoses Not on filedocumented in this encounter Care Teams Auto Self Service Station Attendant Relationship Specialty Start Date End Date Carline Ramires NP [address] [place] [address] PCP - General Family Medicine 08/18/23 Cammie Woodruff OD [address] [place] [address] Optometry 03/13/19 Osmany Foster MD [address] [place] [address] Referring Physician Gastroenterology 08/18/23 [facility] Endocrinology 08/18/23 documented as of this encounter
--- OUTSIDE RECORDS SUMMARY | 2024-03-08 00:43 | XMS_ITS | Clinical Summary ---
Author Organization [facility] Address [address] [place] [address] Care Team Providers Care Security Systems Technician Name Role Phone Cammie Woodruff OD Unavailable Carline Ramires NP Primary Care Provider [phone] Osmany Foster MD Unavailable [phone] Allergies Active Allergy Reactions Criticality Noted Date Comments Sulfamethoxazole-Trimethoprim Joint pain Low 2023 Codeine Itching Low Triamcinolone Unknown 05/08/2023 Medications ARIPiprazole (ABILIFY) 30 mg tabletIndicati ons:Mixed Bipolar I Disorder Take 1 tablet (30 mg total) by mouth nightly Active atorvastatin (LIPITOR) 40 mg tablet Take 1 tablet (40 mg total) by mouth nightly 9 Active BASAGLAR KWIKPEN U-100 INSULIN 100 unit/mL (3 mL) insulin penIndications :type 2 diabetes mellitus Inject 18 Units under the skin nightly 9 Active metoprolol XL (TOPROL-XL) 50 mg 24 hr tabletIndicati ons:hypertensi on Take 1 tablet (50 mg total) by mouth nightly Active Farxiga 10 mg tablet 3 Active desvenlafaxine ER (PRISTIQ) 100 mg 24 hr tablet 3 Active mesalamine (LIALDA) 1.2 gram EC tablet 3 Active Ozempic 2 mg/dose (8 mg/3 mL) pen injector injection 3 Active meloxicam (MOBIC) 15 mg tablet Take 1 tablet (15 mg total) by mouth daily With food. Do not take with other NSAIDS (ibuprofen, naproxen, ect.) 90 tablet 1 4 05/10/19 25 Active dextroamphetam ine-amphetamin e (ADDERALL) 20 mg tablet 1 tablet (20 mg total) Active mupirocin (BACTROBAN) 2 % ointment Apply topically 3 (three) times a day 22 g 1 4 Active Additional Information Patient not taking.Reported on 02/20/2024 hydrocortisone 2.5 % cream 4 Active clotrimazole (MYCELEX) 10 mg hans Active potassium chloride ER 20 mEq CR tablet Take 1 tablet (20 mEq total) by mouth 2 (two) times a day Active aspirin 81 mg enteric coated tablet Take 1 tablet (81 mg total) by mouth daily Active cyclobenzaprin e (FLEXERIL) 10 mg tablet Take 1 tablet (10 mg total) by mouth 3 (three) times a day as needed 4 Active ustekinumab (STELARA) injection Inject 0.5 mL (45 mg total) under the skin every 3 (three) months Active acetaminophen (TYLENOL) 500 mg tablet Take 1 tablet (500 mg total) by mouth every 6 (six) hours as needed for pain Active blood-glucose meter,continuo us ([employer] G7 Forensic Analyst) misc Activ e furosemide (LASIX) 40 mg tablet Take 1 tablet (40 mg total) by mouth 2 (two) times a day 02/20/20 24 Discontin ued(Thera py completed ) Active Problems Problem Noted Date Diagnosed Date Heart failure with preserved ejection fraction ( CMS/HCC) 02/20/2024 Chronic obstructive pulmonary disease 02/20/2024 Primary hypertension 02/20/2024 Candidiasis of skin 07/21/2023 Urinary tract infectious disease 07/20/2023 Laceration of right lower leg 07/05/2023 Sepsis due to urinary tract infection (CMS/HCC) 06/20/2023 Candidiasis of mouth 06/10/2023 Nausea 05/01/2023 Iron deficiency anemia 01/17/2023 Major depressive disorder 12/20/2022 Mixed anxiety and depressive disorder 11/09/2022 Ulcer of mouth 11/02/2022 Cough 10/26/2022 Pleuritic pain 10/26/2022 Fever 10/18/2022 Chronic ulcerative proctitis 10/10/2022 Hyperlipidemia 10/10/2022 Vitamin D deficiency 10/10/2022 Obstructive sleep apnea syndrome 10/06/2021 Dermatochalasis of left upper eyelid 12/13/2018 Overview (12/13/2018): Added automatically from request for surgery [id number] Allergic rhinitis 08/22/2018 Attention deficit hyperactiv ity disorder, predominantly inattentive type 08/22/2018 Assessment & Plan (08/21/2023 7:59 AM CDT): Referral to Psychiatry placed. Bipolar disorder 08/22/2018 Assessment & Plan (08/21/2023 7:59 AM CDT): Patient's mood stable on current regimen, discussed with the patient that we should have her see Psychiatry. Referral placed. Discussed my hesitancy to prescribe Alprazolam. Calcific tendinitis of shoulder 08/22/2018 Chronic fatigue syndrome 08/22/2018 Diabetes mellitus 08/22/2018 Assessment & Plan (08/21/2023 7:58 AM CDT): Patient states she follows with Endo at [place], patient unable to recall the provider's name. No changes to medication today, updated labs ordered. Essential hypertension 08/22/2018 Assessment & Plan (08/21/2023 7:57 AM CDT): BP stable in office, continuing Toprol XL. Updated labs ordered. Dysuria 08/22/2018 Ex-smoker 08/22/2018 Fatigue 08/22/2018 Increased frequency of urination 08/22/2018 Infection of skin 08/22/2018 Multiple joint pain 08/22/2018 Osteoarthritis 08/22/2018 Open wound of abdominal wall without complicatio n 08/22/2018 Sjogren's syndrome 08/22/2018 Obesity 08/22/2018 Autoimmune disease (CMS/HCC) 08/22/2018 Vaginal bleeding 08/22/2018 Wound cellulitis 08/22/2018 Assessment & Plan (08/21/2023 7:56 AM CDT): Chronic at this point. Treat with Clindamycin and referral to wound clinic. Culture showed MRSA. Shoulder joint pain 08/22/2018 Sjogren's syndrome 06/24/2016 Postmenopausal bleeding 2013 Encounter for routine gynecological examination 11/27/2013 Encounters Date Type Department Care Team Description 03/05/2024 Orders Only [facility] [address] [place] [address] [address] [place] [phone] Tomy Odonnell MD 02/20/2024 11:00 AM FLAT 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 CLERK Office Visit [place] [address] [place] [phone] Keisha Persaud NP Heart failure with preserved ejection fraction, unspecified HF chronicity (HCC) (Primary Dx); Chronic obstructive pulmonary disease, unspecified COPD type (HCC); Mixed hyperlipidemia; Primary hypertension 02/20/2024 Orders Only [address] [place] [phone] Keisha Persaud NP 02/19/2024 Telephone [place] [address] [place] [phone] Seema Veras NP Fatigue; weakness 02/19/2024 Orders Only [address] [place] [phone] Nereyda Guthrie MD 02/16/2024 NHUNG IP Outreach [facility] Accountable Care Organization [address] [place] [address] Yolanda Parkinson MA 02/15/2024 Orders Only [facility] [address] [place] [address] [address] [place] [phone] Tara Madrigal MD from Last 3 Months Immunizations Name Administration Dates Next Due COVID-19 mRNA (PFIZER) 0.3 m L (30 mcg) vaccine (12 years and up) 12/08/2022 Hep A / Hep B 05/31/2021 Influenza, Quadrivalent, Karina l Culture-based MDCK, Preservative Free, Antibiotic Free, Intramuscular 11/20/2018 Influenza, Quadrivalent, Hig h Dose, Preservative Free, Intrr 12/08/2022,11/23/2021,11/10/2020 Influenza, Quadrivalent, Spl it, Preservative Free, Intramuscular 11/13/2019,11/09/2017,12/20/2016 Influenza, Trivalent, IM (MDV) 12/20/2012,2012 Influenza, Trivalent, Preser vative Free, Intramuscular 12/17/2012 Influenza, Unspecified 02/20/2023,02/20/2022 [employer] Sars-Cov-2 Bivalent V accination (12+ YRS) 11/23/2021 Pneumococcal Conjugate PCV 13 04/11/2017 Pneumococcal Polysaccharide PPV23 12/14/2020,11/2019 RSV Vaccine, Pref, Recombina nt, Subunit, Adjuvanted, PF, IM (Arexvy) 01/06/2023 Tdap 05/08/2013 ZOSTER Recombinant 12/14/2020,10/14/2020 Surgical History Surgery Date Site/Laterality Comments HYSTERECTOMY 02/21/1988 - 02/19/1989 KNEE ARTHROPLASTY 02/20/2007 - 02/20/2008 Left KNEE ARTHROPLASTY 02/20/2009 - 02/19/2010 Right ABDOMINOPLASTY 02/20/1990 - 02/19/1991 BLEPHAROPLASTY 02/20/1999 - 02/20/2000 Bilateral COLONOSCOPY 02/21/2016 - 02/19/2017 CATARACT EXTRACTION 11/20/2018 - 12/20/2018 Bilateral EYE SURGERY Medical History Medical History Date Comments Heart murmur heart murmur Depression Depression Diabetes mellitus (HCC) Diabetes Anxiety disorder Anxiety Hx Other Medical increased heart rate Obstructive sleep apnea syndrome 10/06/2021 Hypertension NSTEMI (non-ST elevated myoc ardial infarction) (CMS/HCC) (HCC) Family History Medical History Relation Name Comments Crohn's disease Daughter Family histo ry of Crohn's disease - (Added by TW Conv) Kidney cancer Mother Other Other 1 Family history of Cancer, kidney; Osteoarthritis Other 2 Family histor y of Osteoarthritis; Osteoporosis Other 3 Family history of Osteoporosis; Anesthesia problems Neg Hx Relation Name Status Comments Daughter Father Mother Other 1 Other 2 Other 3 Social History Tobacco Use Types Packs/Day Years [...] on file Legal Sex Female 3:03 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 Gender Identity Not on file Sexual Orientation Not on file Obstetrics History Last Filed Vital Signs Vital Sign Reading Time Taken Comments Blood Pressure 116/70 02/20/2024 11:03 AM FLAT 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 CLERK Pulse 93 02/20/2024 11:03 AM FLAT 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 CLERK Temperature 36.1 ??C (96.9 ??F) 09/04/2023 8:30 AM CD T Respiratory Rate 18 09/04/2023 8:30 AM CDT Oxygen Saturation 92% 02/20/2024 11:03 AM FLAT 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 CLERK Inhaled Oxygen Concentration - - Weight 78 kg (171 lb 14.4 oz) 02/20/2024 11:03 A M FLAT 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 CLERK Height 170.2 cm (5' 7 ) 02/20/2024 11:03 AM FLAT 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 CLERK Body Mass Index 26.92 02/20/2024 11:03 AM FLAT 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 CLERK Plan of Treatment Health Maintenance Due Date Last Done Comments Osteoporosis Screening-Bone Density Scan 1955 Foot Exam 1955 Well Visit 65+ 12/06/2019 Covid-19 Vaccine (2023-03 5 season) 2023 12/08/2022, 11/23/2021, 05/31/2021, Additional history exists Breast Cancer Screening-Mammogram 02/17/2024 023 Dilated Eye Exam 02/17/2024 02/16/2023, 10/31/2022 Hemoglobin A1C 02/17/2024 08/18/2023 Albumin Creatinine Ratio, Urine 08/17/2024 Fall Risk Assessment 08/17/2024 08/18/2023 Lipid Panel 08/17/2024 08/18/2023 Depression Screening 09/03/2024 09/04/2023, 08/18/19 24 eGFR 09/03/2024 09/04/2023, 08/18/2023 Colon Cancer Screening-Colonoscopy 08/17/2032 08/17/2022, 06/30/2022 DTaP/Tdap/Td Vaccine (3 - Td or Tdap) 10/23/2033 10/24/2023, 05/08/2013 Pneumococcal vaccine 65+ Completed 021, 12/31/2019, 04/11/2017 Zoster Vaccine Completed 12/14/2020, 10/14/2020 Colon Cancer Screening-CT Colonography Discontinued 06/30/2022 Colon Cancer Screening-DNA Stool Discontinued 07/01/19 Colon Cancer Screening-FIT Discontinued 06/30/2022 Colon Cancer Screening-Sigmoidoscopy Discontinued 06/30/2022 Hepatitis C Screening Completed 08/18/2023 Influenza Vaccine Completed 11/23/2023, , 12/08/2022, Additional history exists Procedures Procedure Name Priority Date/Time Associated Diagnosis Comments CARDIOLOGY DOCUMENT SCAN Routine 03/01/2024 9:44 AM FLAT 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 CLERK ECG 12-LEAD Routine 02/20/2024 3:18 PM FLAT 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 CLERK Chronic obstructive pulmonary disease, unspecified COPD type (HCC) CARDIOLOGY DOCUMENT SCAN Routine 02/12/2024 11:12 AM FLAT 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 CLERK CARDIOLOGY DOCUMENT SCAN Routine 02/11/2024 2:23 PM FLAT 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 CLERK CARDIOLOGY DOCUMENT SCAN Routine 02/10/2024 2:22 PM FLAT 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 CLERK EGFR Routine 09/04/2023 9:22 AM CDT Fatigue, unspecified type HEPATITIS C ANTIBODY Routine 08/18/2023 11:21 AM CDT Encounter for hepatitis C screening test for low risk patient HEMOGLOBIN A1C Routine 08/18/2023 11:21 AM CDT Type 2 diabetes mellitus without complication, with long-term current use of insulin (CMS/HCC) (HCC) LIPID PANEL Routine 08/18/2023 11:21 AM CDT Type 2 diabetes mellitus without complication, with long-term current use of insulin (CMS/HCC) (HCC) Essential hypertension ALBUMIN CREATININE RATIO, URINE Routine 08/18/2023 11:21 AM CDT Type 2 diabetes mellitus without complication, with long-term current use of insulin ([facility]) ([facility]) DIABETES EYE EXAM Routine 10/31/2022 9:39 AM CDT COLONOSCOPY Routine 06/30/2022 12:57 PM CDT from Last 3 Months or Most Recently Relevant to Health Maintenance Results * Cardiology Document Scan (03/01/2024 9:44 AM FLAT 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 CLERK) Anatomical Region Laterality Modality Other us Tomy Odonnell MD CV CARDIAC SERVICES PRO CEDURES Final Result * ECG 12 lead (02/20/2024 3:18 PM FLAT 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 CLERK) Keisha Persaud NP ECG ORDERABLES Final Result * Cardiology Document Scan (02/12/2024 11:12 AM FLAT 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 CLERK) Anatomical Region Laterality Modality Other Keisha Persaud NP CV CARDIAC SERVICES PROCEDUR ES Final Result * Cardiology Document Scan (02/11/2024 2:23 PM FLAT 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 CLERK) Anatomical Region Laterality Modality Other Tara Madrigal MD CV CARDIAC SERVICES PROCEDU RES Final Result * Cardiology Document Scan (02/10/2024 2:22 PM FLAT 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 CLERK) Anatomical Region Laterality Modality Other Tara Madrigal MD CV CARDIAC SERVICES PROCEDU RES Final Result * eGFR (09/04/2023 9:22 AM CDT) eGFR >90 >=60 mL/min/1. 73 m2 Comment: Interpretive Data Reference Interval Normal ?>/= 90 mL/min/1.73m2 Mildly decreased* ? 60 - 89 mL/min/1.73m2 Mildly to moderately decreased ?45 - 59 mL/min/1.73m2 Moderately to severely decreased ??30 - 44 mL/min/1.73m2 Severely decreased ?15 - 29 mL/min/1.73m2 Kidney Failure ?< 15 ??mL/min/1.73m2 *Relative to young adult level Estimated glomerular filtration rate is determined by the 2020 CKD-EPI equation recommended by the National Kidney Foundation (A Unifying Approach to GFR Estimation: Recommendations of the NKF-ASK Task Force on Reassessing the Inclusion of Race in Diagnosing Kidney Disease, JASN 2020). The CKD-EPI equation should not be used for patients with unstable renal function and has not been validated in children and those over 70. Current interpretive data was last reviewed 2020. Blood 09/04/2023 9:22 AM CDT 09/04/2023 4:12 PM CDT Onofre Xavier MD LAB BLOOD ORDERABLES Final Result Performing Organization Address [facility] de Phone Number [place] [address] [address] [employer] [place] [address] * Hepatitis C antibody Blood (08/18/2023 11:21 AM CDT) Hep C Ab Nonreactive Nonreactive Comment: Interpretive Data Nonreactive: Antibodies to HCV not detected. Does NOT exclude the possibility of recent exposure to HCV. Equivocal: Equivocal for HCV antibodies. Supplemental molecular testing will be automatically performed to determine infection status in accordance with current CDC screening recommendations. ?? Reactive: Positive for HCV antibodies. ??This may represent current or past HCV infection. Supplemental molecular testing will be automatically performed to determine ??current infection status in accordance with current CDC screening recommendations. Interpretive data was last revised on 2019. Blood 08/18/2023 11:2 1 AM CDT 08/18/2023 4:02 PM CDT Carline Ramires NP LAB MICROBIOLOGY - GENERAL ORDER JEREMIAH Final Result Performing Organization Address [facility] [place] [address] [facility] [place] [address] * Albumin Creatinine Ratio, Urine (08/18/2023 11:21 AM CDT) Albumin Ur <12.0 mg/L Comment: Interpretive Data No reference range established. Current interpretive data was last revised 2018. Creatinine Ur 37.6 mg/dL [place] Comment: Interpretive Data No reference range established. Current interpretive data was last revised 2018. Albumin Creatinine Ratio, Ur See Comment 1 - 29 [place] [place] Comment:Unable to calculate Urine 08/18/2023 11:2 1 AM CDT 08/18/2023 4:02 PM CDT us Carline Ramires NP LAB URINE ORDERABLES Final Resul t Performing Organization Address [facility] de Phone Number [place] [address] [place] [address] * (ABNORMAL) Hemoglobin A1c (08/18/2023 11:21 AM CDT) Pathologist [facility] Hgb A1C 6.8(H) 4.0 - 5.6 % Estimated Average Glucose 148 mg/dL [place] Comment: The ADA recommends reporting an estimated Average Glucose (eAG) with all Hemoglobin A1c results using the equation derived from a study of 507 normal and diabetic adults. ??Minority populations were underrepresented and children were not included. ?? (Diabetes Care 31:7012-8963, 2008). ??The eAG is not equivalent to a fasting glucose. Blood 08/18/2023 11:2 1 AM CDT 08/18/2023 4:02 PM CDT us Carline Ramires NP LAB BLOOD ORDERABLES Final Resul t Performing Organization Address [facility] de Phone Number [place] [address] [place] [address] * (ABNORMAL) Lipid panel (08/18/2023 11:21 AM CDT) Pathologist [facility] Cholesterol 126 30 - 199 mg/dL Comment: Interpretive Data Ages < or = 19 years ??Acceptable: ? <170 mg/dL ??Borderline high: ??170-199 mg/dL ??High: ? >or= 200 mg/dL Ages > or = 20 years ??Desirable: ?<200 mg/dL ??Borderline high: ??200-239 mg/dL ??High: ? >or= 240 mg/dL Literature References: 1. Expert Panel on Integrated Guidelines for Cardiovascular Health and Risk Reduction in Children and Adolescents. Pediatrics 2011;128:S213 2. NCEP Expert Panel. Circulation 2004;110:227 Current Interpretive Data was last revised on 2017. Triglycerides 160(H) <=149 mg/dL [place] Comment: Interpretive Data Ages < or = 9 years ??Acceptable: ? <75 mg/dL ??Borderline high: ??75-99 mg/dL ??High: ? >or= 100 mg/dL Ages 10 to 20 years ??Acceptable: ? <90 mg/dL ??Borderline high: ??90-129 mg/dL ??High: ? >or= 130 mg/dL Ages > or = 20 years ??Desirable: ?<150 mg/dL ??Borderline high: ??150-199 mg/dL ??High: ? 200-499 mg/dL ?Very high: ?? >or= 499 mg/dL Literature References: 1. Expert Panel on Integrated Guidelines for Cardiovascular Health and Risk Reduction in Children and Adolescents. Pediatrics 2011;128:S213 2. NCEP Expert Panel. Circulation 2004;110:227 Current Interpretive Data was last revised on 2017. HDL 30(L) >=40 mg/dL [place] [place] Comment: Interpretive Data Ages < or = 19 years ??Acceptable: ? >45 mg/dL ??Borderline low: ?? 40-45 mg/dL ??Low: ? <40 mg/dL Ages > or = 20 years ??Desirable: ?>or= 60 mg/dL ??Low: ? <40 mg/dL Literature References: 1. Expert Panel on Integrated Guidelines for Cardiovascular Health and Risk Reduction in Children and Adolescents. Pediatrics 2011;128:S213 2. NCEP Expert Panel. Circulation 2004;110:227 Current Interpretive Data was last revised on 2017. LDL, calculated 64 <=129 mg/dL CERNER Comment: Interpretive Data Ages < or = 19 years ??Acceptable: ? <110 mg/dL ??Borderline high: ??110-129 mg/dL ??High: ?>or= 130 mg/dL Ages > or = 20 years ??Optimal: ? <100 mg/dL ??Near optimal: ?100-129 mg/dL ??Borderline high: ?? 130-159 mg/dL ??High: ?>160 mg/dL Literature References: 1. Expert Panel on Integrated Guidelines for Cardiovascular Health and Risk Reduction in Children and Adolescents. Pediatrics 2011;128:S213 2. NCEP Expert Panel. Circulation 2004;110:227 Current Interpretive Data was last revised on 2017. Non-HDL Cholesterol 96 mg/dL CERNER Comment: Interpretive Data Ages < or = 19 years ??Acceptable: ?<120 mg/dL ??Borderline high: ??120-144 mg/dL ??High: ?>145 mg/dL Ages > or = 20 years ??When triglycerides are >200 mg/dL, Non-HDL cholesterol is a secondary target of ? therapy with treatment goals that are 30 mg/dL greater than the LDL cholesterol target. ? Literature References: 1. Expert Panel on Integrated Guidelines for Cardiovascular Health and Risk Reduction in Children and Adolescents. Pediatrics 2011;128:S213 2. NCEP Expert Panel. Circulation 2004;110:227 Current Interpretive Data was last revised on 2017. Chol/HDL ratio 4 [facility] CH Blood 08/18/2023 11:2 1 AM CDT 08/18/2023 4:02 PM CDT Carline Ramires NP LAB [place] [address] [address] [place] [address] * DIABETES EYE EXAM (10/31/2022 9:39 AM CDT) Historical Provider HEALTH MAINTENANCE Final Result * HM COLONOSCOPY (06/30/2022 12:57 PM CDT) Historical Provider HEALTH MAINTENANCE Final Result from Last 3 Months or Most Recently Relevant to Health Maintenance Insurance A[employer]NA MEDICARE AETNA MEDICARE Care Teams Security Systems Technician Relationship Specialty Start Date End Date Carline Ramires NP [address] [facility] [address] [place] [address] PCP - General Family Medicine 08/18/23 Cammie Woodruff OD [address] [place] [address] Optometry 03/13/19 Osmany Foster MD [address] [facility] [address] [place], [place] [id number] Referring Physician Gastroenterology 08/18/23 [facility] Endocrinology 08/18/23
--- OUTSIDE RECORDS SUMMARY | 2024-03-08 00:43 | XMS_ITS | Encounter Summary ---
Author Organization [facility] Healthcare Address [address] [place] [address] Care Team Providers Care Disability Insurance Hearing Officer Name Role Phone Cammie Woodruff OD Unavailable Carline Ramires NP Primary Care Provider [phone] Osmany Foster MD Unavailable [phone] Reason for Visit * Reason Onset Date Comments Med Refill 08/21/2023 Encounter Details Date Type Department Care Team (Late st Contact Info) Description 08/21/2023 Telephone [facility] Medical Group Primary Care at [address] [phone] Carline Ramires NP [address] [place] [address] [address] [place] [address] Med Refill Social History Tobacco Use Types Packs/Day Years [...] on file 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 * Telephone Encounter - Mi Pope MA - 08/21/2023 3:27 PM CDT To be on Doxy. Will call. * Telephone Encounter - Yoselyn Zapata - 08/21/2023 11:12 AM CDT Medication Question/Clarification Medication Name(s): clindamycin (CLEOCIN) 300 mg capsule clindamycin (CLEOCIN) 150 mg capsule doxycycline (VIBRAMYCIN) 100 mg capsule What is the question or clarification needed? Pt requesting clarity on antibiotic medications If needed, Pharmacy(s) medication(s) should be sent to: [facility] - [address] Additional Comments: Pharmacy inquiring to follow up on antibiotic medication that was prescribed on Monday and today, to confirm if the pt is to continue to clindamycin along with the doxycycline. Please call and advise Does message need to be routed? Yes-Action Needed documented in this encounter Plan of Treatment Not on file documented as of this encounter Visit Diagnoses Not on filedocumented in this encounter Additional Health Concerns Infection Onset Date Last Indicated Resolved Time MRSA Comment:R leg wound 08/04/23 08/04/2023 08/04/2023 01/31/2024 3 :05 AM WHEEL FITTER documented as of this encounter Care Teams Disability Insurance Hearing Officer Relationship Specialty Start Date End Date Carline Ramires NP [address] [facility] [address] [place] [address] PCP - General Family Medicine 08/18/23 Cammie Woodruff OD [address] [place] [address] Optometry 03/13/19 Osmany Fotser MD [address] [place] [address] Referring Physician Gastroenterology 08/18/23 [facility] Endocrinology 08/18/23 documented as of this encounter
--- OUTSIDE RECORDS SUMMARY | 2024-03-08 00:43 | XMS_ITS | Encounter Summary ---
Author Organization [facility] Healthcare Address [address] [place] [address] Care Team Providers Care Tanker Driver Name Role Phone Cammie Woodruff OD Unavailable [phone] Carline Ramires NP Primary Care Provider [phone] Osmany Foster MD Unavailable [phone] Reason for Referral * Consultation (Routine) - Closed Specialty Diagnoses / Procedures Referred By Contac t Referred To Contact Wound Care Diagnoses Wound cellulitis Carline Ramires NP [address] [place] [address] Phone: tel: fax: [facility] [address] [place] [address] Phone: tel: fax: Referral ID Status Reason Start Date Expiration Date V isits Requested Visits Authorized [id number] Closed Specialty Services Required 08/25/2023 09/23/2024 1 1 Question Answer Please select the performing region: [facility] [[id number]] Please select the performing department: [facility] [] # of visits: 1 Encounter Details Date Type Department Care Team (Late st Contact Info) Description 08/25/[address] [facility] Primary Care at [address] [address] Carline Ramires NP [address] [facility] [address] [place] [address] Wound cellulitis (Primary Dx) Social History Tobacco Use Types Packs/Day Years [...] on file Legal Sex Female 3:03 AM [employer] Gender Identity Not on file Sexual Orientation Not on file documented as of this encounter Plan of Treatment Scheduled Referrals Name Type Priority Associated Diagnoses Order Schedule Ambulatory referral to Wound Clinic Outpatient Referral Routine Wound cellulitis Expected: 09/08/2023 (Approximate), Expires: 08/24/2024 documented as of this encounter Visit Diagnoses Diagnosis Wound cellulitis- Primary documented in this encounter Additional Health Concerns Infection Onset Date Last Indicated Resolved Time MRSA Comment:R leg wound 08/04/23 08/04/2023 08/04/2023 01/31/2024 3 :05 AM [employer] documented as of this encounter Care Teams Tanker Driver Relationship Specialty Start Date End Date Carline Ramires NP [address] [facility] [address] [place] [address] PCP - General Family Medicine 08/18/23 Cammie Woodruff OD [address] [place] [address] Optometry 03/13/19 Osmany Foster MD [address] [place] [address] Referring Physician Gastroenterology 08/18/23 [facility] Endocrinology 08/18/23 documented as of this encounter
--- OUTSIDE RECORDS SUMMARY | 2024-03-08 00:43 | XMS_ITS | Encounter Summary ---
Author Organization [facility] Address [address] [place] [address] Care Team Providers Care Email Marketing Processor Name Role Phone Cammie Woodruff OD Unavailable [phone] Carline Ramires NP Primary Care Provider [phone] Osmany Foster MD Unavailable [phone] Reason for Visit * Reason Comments Fatigue Fatigue Encounter Details Date Type Department Care Team (Late st Contact Info) Description 09/04/2023 8:30 AM CDT Office Visit [facility] Primary Care at [address] [id number] Onofre Xavier MD [address] [place] [address] [address] [place] [address] Fatigue, unspecified type (Primary Dx) Social History Tobacco Use Types [...] on file Legal Sex Female 3:03 AM [employer] Gender Identity Not on file Sexual Orientation Not on file documented as of this encounter Last Filed Vital Signs Vital Sign Reading Time Taken Comments Blood Pressure 140/84 09/04/2023 8:30 AM CDT Pulse 90 09/04/2023 8:30 AM CDT Temperature 36.1 ??C (96.9 ??F) 09/04/2023 8:30 AM CD T Respiratory Rate 18 09/04/2023 8:30 AM CDT Oxygen Saturation 92% 09/04/2023 8:30 AM CDT Inhaled Oxygen Concentration - - Weight 83.9 kg (185 lb) 09/04/2023 8:30 AM CDT Height 170.2 cm (5' 7 ) 09/04/2023 8:30 AM CDT Body Mass Index 28.98 09/04/2023 8:30 AM CDT documented in this encounter Patient Instructions * Patient Instructions* Onofre Xavier MD - 09/04/2023 8:30 AM CDT Labs as ordered Urinalysis appears clear, though presence of sugar noted (due to diabetes). Keep wound clinic appointment, though wound appears mostly resolved We will discuss ortho status, xray from April appears not to show abnormality Thanks for coming in today! My medical assistants and I are thankful you have trusted us with your care, and hope that you received EXCELLENT care today! Please do not hesitate to call if you have any questions or concerns at [phone]. You may receive a phone call, text, MYCHART message, or e-mail asking about your care today. We would love to hear your feedback on how EXCELLENT your care wastoday! Wishing you better health, always. Dr. Xavier documented in this encounter Progress Notes * Onofre Xavier MD - 09/04/2023 8:30 AM CDT Images from the original note were not included. Subjective/Objective Patient ID: Yaneth Duarte is a 67 y.o. female. Chief Complaint Fatigue (Fatigue ) Presents to find out her blood tests. She had been treated for cellulitis recently, also recent history of urosepsis and was in ICU. She isn't able to get in with the wound clinic until September. She denies that she is taken any oxycodone this morning. She is slurring her speech a bit. Current Outpatient Medications: ARIPiprazole (ABILIFY) 30 mg tablet, Take 1 tablet (30 mg total) by mouth nightly, Disp: , Rfl: atorvastatin (LIPITOR) 40 mg tablet, Take 1 tablet (40 mg total) by mouth nightly, Disp: , Rfl: BASAGLAR KWIKPEN U-100 INSULIN 100 unit/mL (3 mL) insulin pen, Inject 18 Units under the skin nightly, Disp: , Rfl: clotrimazole (MYCELEX) 10 mg hans, , Disp: , Rfl: desvenlafaxine ER (PRISTIQ) 100 mg 24 hr tablet, , Disp: , Rfl: Farxiga 10 mg tablet, , Disp: , Rfl: hydrocortisone 2.5 % cream, , Disp: , Rfl: meloxicam (MOBIC) 15 mg tablet, Take 1 tablet (15 mg total) by mouth daily With food. Do not take with other NSAIDS (ibuprofen, naproxen, ect.), Disp: 90 tablet, Rfl: 1 mesalamine (LIALDA) 1.2 gram EC tablet, , Disp: , Rfl: metoprolol XL (TOPROL-XL) 50 mg 24 hr tablet, Take 1 tablet (50 mg total) by mouth nightly, Disp: ,Rfl: mupirocin (BACTROBAN) 2 % ointment, Apply topically 3 (three) times a day, Disp: 22 g, Rfl: 1 Ozempic 2 mg/dose (8 mg/3 mL) pen injector injection, , Disp: , Rfl: dextroamphetamine-amphetamine (ADDERALL) 20 mg tablet, 1 tablet (20 mg total) (Patient not taking: Reported on 09/04/2023), Disp: , Rfl: Review of Systems Constitutional: Positive for fatigue. Negative for fever. Genitourinary: Positive for frequency and urgency. Negative for dysuria, hematuria and pelvic pain. BP 140/84 (BP Location: Left arm, Patient Position: Sitting) Pulse 90 Temp 36.1 ??C (96.9 ??F) (Temporal) Resp 18 Ht 170.2 cm (5' 7 ) Wt 83.9 kg (185 lb) SpO2 92% BMI 28.98 kg/m?? Physical Exam Vitals reviewed. Constitutional: Appearance: She is overweight. HENT: Head: Normocephalic and atraumatic. Cardiovascular: Rate and Rhythm: Normal rate and regular rhythm. Pulmonary: Breath sounds: No wheezing, rhonchi or rales. Abdominal: Tenderness: There is no right CVA tenderness or left CVA tenderness. Neurological: Mental Status: She is alert. Office Visit on 09/04/2023 Component Date Value Ref Range Status Glucose, ur, POC 09/04/2023 500. (A) Negative MG/DL Final Bilirubin, ur, POC 09/04/2023 Negative Negative, Small, Moderate, Large Final Ketones, ur, POC 09/04/2023 Negative Negative Final Specific [place], POC 09/04/2023 1.015 1.003 - 1.030 Final Blood, ur, POC 09/04/2023 Negative Negative Final pH, ur, POC 09/04/2023 6.0 5.0 - 8.0 Final Protein, ur, POC 09/04/2023 Negative Negative Final Urobilinogen, urine, POC 09/04/2023 0.2 0.2 - 1.0 mg/dL Final Nitrite, ur, POC 09/04/2023 Negative Negative Final Leukocytes, ur, POC 09/04/2023 Negative Negative Final Lot Number 09/04/2023 [id number] Final Hospital Outpatient Visit on 08/18/2023 Component Date Value Ref Range Status Albumin Ur 08/18/2023 <12.0 mg/L Final Comment: Interpretive Data No reference range established. Current interpretive data was last revised 2018. Creatinine Ur 08/18/2023 37.6 mg/dL Final Comment: Interpretive Data No reference range established. Current interpretive data was last revised 2018. Albumin Creatinine Ratio, Ur 08/18/2023 See Comment 1 - 29 Final Unable to calculate Amphetamine, ur 08/18/2023 Screen Positive, presumptive (A) CutOff 500ng/mL Final Comment: Interpretive Data - Amphetamines: Samples containing greater than 500 ng/mL d-methamphetamine or other cross-reacting amphetamine compounds are reported as positive. Amphetamine immunoassaysare subject to significant false positive rates due to cross-reactivity of non-amphetamine drugs. Confirmatory testing required for definitive results. Current Interpretive Data was last reviewed 2022. Barbiturates, ur 08/18/2023 Not Detected CutOff 200ng/mL Final Comment: Interpretive Data - Barbiturates: Samples containing greater than 200 ng/mL secobarbital or other cross-reacting barbiturate compounds are reported as positive. False positive and false negative results are possible. Confirmatory testing required for definitive results. Current Interpretive Data was last reviewed 2022. Benzodiazepines, ur 08/18/2023 Not Detected CutOff 100ng/mL Final Comment: Interpretive Data - Benzodiazepines: Samples containing greater than 100 ng/mL nordiazepamor other cross-reacting compounds are reported as positive. False positive and false negative results are possible. Confirmatory testing required for definitive results. Current Interpretive Data was last reviewed 2022. Cannabinoids, ur 08/18/2023 Not Detected CutOff 50 ng/mL Final Comment: Interpretive Data - Cannabinoids: Samples containing greater than 50 ng/mL delta-9 THC -COOH or other cross-reacting compounds are reported as positive. False positive and false negative results are possible. Confirmatory testing required for definitive results. Current Interpretive Data was last reviewed 2022. Cocaine, ur 08/18/2023 Not Detected CutOff 150ng/mL Final Comment: Interpretive Data - Cocaine: Samples containing greater than 150 ng/mL benzoylecgonine or other cross-reacting compounds are reported as positive. False positive and false negative results are possible. Confirmatory testing required for definitive results. Current Interpretive Data was last reviewed 2022. Fentanyl, Ur 08/18/2023 Not Detected CutOff 5 ng/mL Final Comment: Interpretive Data - Fentanyl: Samples containing greater than 5 ng/mL norfentanyl, fentanyl, or other cross-reacting fentanyl compounds are reported as positive. False positive and false negative results are possible. Confirmatory testing required for definitive results. Current Interpretive Data was last reviewed 2023. Methadone, ur 08/18/2023 Not Detected CutOff 300ng/mL Final Comment: Interpretive Data - Methadone: Samples containing greater than 300 ng/mL d,l-methadone or other cross-reacting compounds are reported as positive. False positive and false negative results are possible. Confirmatory testing required for definitive results. Current Interpretive Data was last reviewed 2022. Opiates, ur 08/18/2023 Not Detected CutOff 300ng/mL Final Comment: Interpretive Data - Opiates: Samples containing greater than 300 ng/mL morphine or other cross-reacting compounds are reported as positive. False positive and false negative results are possible. Confirmatory testing required for definitive results. Current Interpretive Data was last reviewed 2022. Oxycodone, ur 08/18/2023 Screen Positive, presumptive (A) CutOff 100ng/mL Final Comment: Interpretive Data - Oxycodone: Samples containing greater than 100 ng/mL oxycodone or other cross-reacting compounds are reported as positive. False positive and false negative results are possible. Confirmatory testing required for definitive results. Current Interpretive Data was last reviewed 2022. Phencyclidine, ur 08/18/2023 Not Detected CutOff 25 ng/mL Final Comment: Interpretive Data - Phencyclidine: Samples containing greater than 25 ng/mL phencyclidine or other cross-reacting compounds are reported as positive. False positive and false negative results are possible. Confirmatory testing required for definitive results. Current Interpretive Data was last reviewed 2022. Urine Creatinine 08/18/2023 37 mg/dL Final Comment: Interpretive Data Urine Creatinine: < 10 mg/dL is extremely dilute = or > 10 but < 20 mg/dL is dilute = or > 20 mg/dL is normal Current Interpretive Data was last revised on 2017. Vitamin D 25-OH 08/18/2023 28 (L) 30 - 80 ng/mL Final TSH 08/18/2023 1.42 0.30 - 4.20 mcIUnit/mL Final Cholesterol 08/18/2023 126 30 - 199 mg/dL Final Comment: Interpretive Data Ages < or = 19 years Acceptable: <170 mg/dL Borderline high: 170-199 mg/dL High: >or= 200 mg/dL Ages > or = 20 years Desirable: <200 mg/dL Borderline high: 200-239 mg/dL High: >or= 240 mg/dL Literature References: 1. Expert Panel on Integrated Guidelines for Cardiovascular Health and Risk Reduction in Children and Adolescents. Pediatrics 2011;128:S213 2. NCEP Expert Panel. Circulation 2003;110:227 Current Interpretive Data was last revised on 2017. Triglycerides 08/18/2023 160 (H) <=149 mg/dL Final Comment: Interpretive Data Ages < or = 9 years Acceptable: <75 mg/dL Borderline high: 75-99 mg/dL High: >or= 100 mg/dL Ages 10 to 20 years Acceptable: <90 mg/dL Borderline high: 90-129 mg/dL High: >or= 130 mg/dL Ages > or = 20 years Desirable: <150 mg/dL Borderline high: 150-199 mg/dL High: 200-499 mg/dL Very high: >or= 499 mg/dL Literature References: 1. Expert Panel on Integrated Guidelines for Cardiovascular Health and Risk Reduction in Children and Adolescents. Pediatrics 2011;128:S213 2. NCEP Expert Panel. Circulation 2003;110:227 Current Interpretive Data was last revised on 2017. HDL 08/18/2023 30 (L) >=40 mg/dL Final Comment: Interpretive Data Ages < or = 19 years Acceptable: >45 mg/dL Borderline low: 40-45 mg/dL Low: <40 mg/dL Ages > or = 20 years Desirable: >or= 60 mg/dL Low: <40 mg/dL Literature References: 1. Expert Panel on Integrated Guidelines for Cardiovascular Health and Risk Reduction in Children and Adolescents. Pediatrics 2011;128:S213 2. NCEP Expert Panel. Circulation 2003;110:227 Current Interpretive Data was last revised on 2017. LDL, calculated 08/18/2023 64 <=129 mg/dL Final Comment: Interpretive Data Ages < or = 19 years Acceptable: <110 mg/dL Borderline high: 110-129 mg/dL High: >or= 130 mg/dL Ages > or = 20 years Optimal: <100 mg/dL Near optimal: 100-129 mg/dL Borderline high: 130-159 mg/dL High: >160 mg/dL Literature References: 1. Expert Panel on Integrated Guidelines for Cardiovascular Health and Risk Reduction in Children and Adolescents. Pediatrics 2011;128:S213 2. NCEP Expert Panel. Circulation 2003;110:227 Current Interpretive Data was last revised on 2017. Non-HDL Cholesterol 08/18/2023 96 mg/dL Final Comment: Interpretive Data Ages < or = 19 years Acceptable: <120 mg/dL Borderline high: 120-144 mg/dL High: >145 mg/dL Ages > or = 20 years When triglycerides are >200 mg/dL, Non-HDL cholesterol is a secondary target of therapy with treatment goals that are 30 mg/dL greater than the LDL cholesterol target. Literature References: 1. Expert Panel on Integrated Guidelines for Cardiovascular Health and Risk Reduction in Children and Adolescents. Pediatrics 2011;128:S213 2. NCEP Expert Panel. Circulation 2004;110:227 Current Interpretive Data was last revised on 2017. Chol/HDL ratio 08/18/2023 4 Final Hep C Ab 08/18/2023 Nonreactive Nonreactive Final Comment: Interpretive Data Nonreactive: Antibodies to HCV not detected. Does NOT exclude the possibility of recent exposure toHCV. Equivocal: Equivocal for HCV antibodies. Supplemental molecular testing will be automatically performed to determine infection status in accordance with current CDC screening recommendations. Reactive: Positive for HCV antibodies. This may represent current or past HCV infection. Supplemental molecular testing will be automatically performed to determine current infection status in accordance with current CDC screening recommendations. Interpretive data was last revised on 2019. Hgb A1C 08/18/2023 6.8 (H) 4.0 - 5.6 % Final Estimated Average Glucose 08/18/2023 148 mg/dL Final Comment: The ADA recommends reporting an estimated Average Glucose (eAG) with all Hemoglobin A1c results using the equation derived from a study of 507 normal and diabetic adults. Minority populations were underrepresented and children were not included. (Diabetes Care 31:8640-7213, 2008). The eAG is not equivalent to a fasting glucose. Sodium 08/18/2023 143 135 - 145 mmol/L Final Potassium, pl 08/18/2023 4.0 3.3 - 4.9 mmol/L Final Chloride 08/18/2023 104 97 - 110 mmol/L Final CO2 08/18/2023 24 22 - 32 mmol/L Final Anion gap 08/18/2023 15 2 - 15 mmol/L Final BUN 08/18/2023 16 6 - 25 mg/dL Final Creatinine 08/18/2023 0.56 (L) 0.60 - 1.10 mg/dL Final Glucose 08/18/2023 94 70 - 199 mg/dL Final Comment: Interpretive Data Fasting glucose >/= 126 mg/dl is diagnostic for diabetes. Fasting is defined as no caloric intake for at least 8 hours. Fasting glucose between 100 mg/dl to 125 mg/dl is diagnostic of prediabetes. In a patient with classic symptoms of hyperglycemia or hyperglycemic crisis, a random glucose >/= 200 mg/dl is diagnostic for diabetes. In the absence of unequivocal hyperglycemia, results should be confirmed by repeat testing. The classification and Diagnosis of Diabetes Diabetes Care 2021; 46: S19-S40. Current interpretive data was last revised 2022. Calcium 08/18/2023 9.7 8.5 - 10.3 mg/dL Final Bilirubin, total 08/18/2023 0.6 0.1 - 1.2 mg/dL Final Protein, pl 08/18/2023 7.3 6.5 - 8.5 g/dL Final Albumin 08/18/2023 3.9 3.5 - 5.0 g/dL Final Alk phos 08/18/2023 89 40 - 130 Units/L Final ALT 08/18/2023 33 7 - 45 Units/L Final AST 08/18/2023 42 10 - 45 Units/L Final WBC 08/18/2023 12.4 (H) 3.8 - 9.9 K/cumm Final Hgb 08/18/2023 13.6 11.9 - 15.5 g/dL Final Hct 08/18/2023 42.6 35.6 - 45.5 % Final Plt 08/18/2023 226 150 - 400 K/cumm Final MPV 08/18/2023 11.9 9.1 - 12.3 fL Final RBC 08/18/2023 4.64 3.90 - 5.20 M/cumm Final MCV 08/18/2023 91.8 81.3 - 96.4 fL Final MCH 08/18/2023 29.3 27.1 - 33.3 pg Final MCHC 08/18/2023 31.9 (L) 32.3 - 35.7 g/dL Final RDW CV 08/18/2023 14.7 11.1 - 14.9 % Final RDW SD 08/18/2023 49.2 (H) 35.7 - 48.1 fL Final NRBC abs 08/18/2023 0.00 0.00 - 0.01 K/cumm Final Neutrophil abs 08/18/2023 7.3 (H) 1.5 - 6.5 K/cumm Final Imm gran abs 08/18/2023 0.1 0.0 - 0.1 K/cumm Final Lymphocyte abs 08/18/2023 4.1 (H) 0.8 - 3.3 K/cumm Final Monocyte abs 08/18/2023 0.7 0.2 - 0.8 K/cumm Final Eosinophil abs 08/18/2023 0.2 0.0 - 0.5 K/cumm Final Basophil abs 08/18/2023 0.1 0.0 - 0.1 K/cumm Final Neutrophil pct 08/18/2023 58.8 % Final Comment: Interpretive Data Percent cell count reference ranges are not reported, since discordance with absolute values may lead to misinterpretation of CBC data. Current Interpretive Data was last revised on 2017. Imm gran pct 08/18/2023 0.6 % Final Comment: Interpretive Data Percent cell count reference ranges are not reported, since discordance with absolute values may lead to misinterpretation of CBC data. Current Interpretive Data was last revised on 2017. Lymphocyte pct 08/18/2023 33.2 % Final Comment: Interpretive Data Percent cell count reference ranges are not reported, since discordance with absolute values may lead to misinterpretation of CBC data. Current Interpretive Data was last revised on 2017. Monocyte pct 08/18/2023 5.4 % Final Comment: Interpretive Data Percent cell count reference ranges are not reported, since discordance with absolute values may lead to misinterpretation of CBC data. Current Interpretive Data was last revised on 2017. Eosinophil pct 08/18/2023 1.5 % Final Comment: Interpretive Data Percent cell count reference ranges are not reported, since discordance with absolute values may lead to misinterpretation of CBC data. Current Interpretive Data was last revised on 2017. Basophil pct 08/18/2023 0.5 % Final Comment: Interpretive Data Percent cell count reference ranges are not reported, since discordance with absolute values may lead to misinterpretation of CBC data. Current Interpretive Data was last revised on 2017. eGFR 08/18/2023 >90 >=60 mL/min/1.73 m2 Final Comment: Interpretive Data Reference Interval Normal >/= 90 mL/min/1.73m2 Mildly decreased* 60 - 89 mL/min/1.73m2 Mildly to moderately decreased 45 - 59 mL/min/1.73m2 Moderately to severely decreased 30 - 44 mL/min/1.73m2 Severely decreased 15 - 29 mL/min/1.73m2 Kidney Failure < 15 mL/min/1.73m2 *Relative to young adult level Estimated glomerular [...] Current interpretive data was last reviewed 2020. Amphetamine Conf, Ur 08/18/2023 Confirmed Positive (A) CutOff 150ng/mL Final Testing performed by: [facility], [address] [place]., [address] Methamphetamine Conf, Ur 08/18/2023 Does Not Confirm CutOff 150ng/mL Final Testing performed by: [facility], [address] [place]., [address] MDA Conf, Ur 08/18/2023 Does Not Confirm CutOff 150ng/mL Final Testing performed by: [facility], [address] [place]., [address] MDMA Conf, Ur 08/18/2023 Does Not Confirm CutOff 50 ng/mL Final Testing performed by: [facility], [address] [place]., [address] MDEA Conf, Ur 08/18/2023 Does Not Confirm CutOff 150ng/mL Final Testing performed by: [facility], [address] [place]., [address] MBDB Conf, Ur 08/18/2023 Does Not Confirm CutOff 150ng/mL Final Comment: Interpretive Data This test detects the presence or absence of drug compounds using LC Tandem mass spectrometry. While this test is highly specific, false positive and false negative results may occur in very rare circumstances. Contact the laboratory for consultation, if needed. Performance characteristics were determined by the [facility] in a manner consistent with CLIA requirement and has not been cleared or approved by the U.S. Food and Drug Administration. Current interpretive data was last revised on 2020. Testing performed by: [facility], [address] [place]., [address] Oxycodone Conf, Ur 08/18/2023 Confirmed Positive (A) CutOff 50 ng/mL Final Testing performed by: [facility], [address] [place]., [address] Oxymorphone Conf, Ur 08/18/2023 Does Not Confirm CutOff 50 ng/mL Final Comment: Interpretive Data This test detects the presence or absence of drug compounds using LC Tandem mass spectrometry and is not intended to assess compliance with prescribed medications. While this test is highly specific, false positive and false negative results may occur in very rare circumstances. Contact the laboratory for consultation, if needed. Performance characteristics were determined by the [facility] in a manner consistent with CLIA requirement and has not been cleared or approved by the U.S. Food and Drug Administration. Current interpretive data was last revised 2020. Testing performed by: [facility], [address] [place]., [address] Assessment/Plan Diagnoses and all orders for this visit: Fatigue, unspecified type (Primary) Comments: Awaiting labs Urinalysis unremarkable save for glucosuria, she is on Farxiga Orders: - Basic metabolic panel; Future - POCT urinalysis dipstick - CBC with auto differential; Future Onofre Xavier MD This office note has been partially dictated using [employer] software, and as a result portions of the record may have been created with this software. Occasional wrong-word or '[id number]' substitutions may have occurred due to the inherent limitations of voice recognition software. Read the chartcarefully and recognize, using context, where substitutions have occurred. documented in this encounter Plan of Treatment Not on file documented as of this encounter Procedures Procedure Name Priority Date/Time Associated Diagnosis Comments POCT URINALYSIS DIPSTICK Routine 09/04/2023 8:58 AM CDT Fatigue, unspecified type documented in this encounter Results * (ABNORMAL) CBC with auto differential (09/04/2023 9:22 AM CDT) WBC 7.4 3.8 - 9.9 K/cumm Hgb 13.0 11.9 - 15.5 g/dL [facility] Hct 43.9 35.6 - 45.5 % [facility] Plt 196 150 - 400 K/cumm [facility] MPV 12.3 9.1 - 12.3 fL [facility] RBC 4.58 3.90 - 5.20 M/cumm [facility] MCV 95.9 81.3 - 96.4 fL [facility] MCH 28.4 27.1 - 33.3 pg [facility] MCHC 29.6(L) 32.3 - 35.7 g/dL [facility] RDW CV 14.6 11.1 - 14.9 % [facility] RDW SD 50.8(H) 35.7 - 48.1 fL [facility] NRBC abs 0.00 0.00 - 0.01 K/cumm [facility] Blood 09/04/2023 9:22 AM CDT 09/04/2023 3:43 PM CDT us Onofre Xavier MD LAB BLOOD ORDERABLES Final Result [facility] [id number] [address] Department [place] [address] * (ABNORMAL) Basic metabolic panel (09/04/2023 9:22 AM CDT) Sodium 143 135 - 145 mmol/L Potassium, pl 4.0 3.3 - 4.9 mmol/L [facility] Chloride 104 97 - 110 mmol/L [facility] CO2 29 22 - 32 mmol/L [facility] Anion gap 10 2 - 15 mmol/L [facility] BUN 10 6 - 25 mg/dL [facility] Creatinine 0.57(L) 0.60 - 1.10 mg/dL [facility] Glucose 158 70 - 199 mg/dL [facility] Comment: Interpretive Data Fasting glucose >/= 126 mg/dl is diagnostic for diabetes. ?? Fasting is defined as no caloric intake for at least 8 hours. Fasting glucose between 100 mg/dl to 125 mg/dl is diagnostic of prediabetes. In a patient with classic symptoms of hyperglycemia or hyperglycemic crisis, a random glucose >/= 200 mg/dl is diagnostic for diabetes. In the absence of unequivocal hyperglycemia, results should be confirmed by repeat testing. The classification and Diagnosis of Diabetes Diabetes Care 2021; 46: S19-S40. Current interpretive data was last revised 2022. Calcium 9.3 8.5 - 10.3 mg/dL [facility] Blood 09/04/2023 9:22 AM CDT 09/04/2023 3:43 PM CDT us Onofre Xavier MD LAB BLOOD ORDERABLES Final Result M[facility] [id number] Department [place] [address] * (ABNORMAL) POCT urinalysis dipstick (09/04/2023 8:58 AM CDT) Glucose, ur, POC 500.(A) Negative MG/DL Bilirubin, ur, POC Negative Negative, Small, Moderate, Large Ketones, ur, POC Negative Negative Specific [place], POC 1.015 1.003 - 1.030 Blood, ur, POC Negative Negative pH, ur, POC 6.0 5.0 - 8.0 Protein, ur, POC Negative Negative Urobilinogen, urine, POC 0.2 0.2 - 1.0 mg/dL Nitrite, ur, POC Negative Negative Leukocytes, ur, POC Negative Negative Lot Number [id number] Urine 09/04/2023 8:58 AM CDT Onofre Xavier MD POINT OF CARE TEST ORDERABL ES Final Result documented in this encounter Visit Diagnoses Diagnosis Fatigue, unspecified type- Primary documented in this encounter Discontinued Medications Medication Sig Discontinue Reason Start Date End Da te ALPRAZolam (XANAX) 1 mg tabletIndications:anxiet y Take 1 tablet (1 mg total) by mouth daily as needed for anxiety 08/15/2018 09/04/2023 documented as of this encounter Historical Medications * This list may reflect changes made after this encounter. 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 [address] [place] [address] PCP - General Family Medicine 08/18/23 Cammie Woodruff OD [address] [place] [address] Optometry 03/13/19 Osmany Foster MD [address] [place] [address] Referring Physician Gastroenterology 08/18/23 [facility] Endocrinology 08/18/23 documented as of this encounter
--- OUTSIDE RECORDS SUMMARY | 2024-03-08 00:43 | XMS_ITS | Referral Summary ---
Author Organization [facility] Address [address] [place] [address] Care Team Providers Care Unix Architect Name Role Phone Cammie Woodruff OD Unavailable [phone] Carline Ramires NP Primary Care Provider [phone] Osmany Foster MD Unavailable [phone] Encounters Date Type Department Care Team Description 03/05/2024 Orders Only [facility] Medical Group Cardiology [address] [place] [phone] Tomy Odonnell MD 02/20/2024 Orders Only [facility] Medical [facility] Cardiology [address] [place] [phone] Keisha Persaud NP 02/20/2024 11:00 AM ASSET PROTECTION OFFICER Office Visit [facility] Medical [facility] Cardiology [address] [facility] [address] [place] [phone] Keisha Persaud NP Heart failure with preserved ejection fraction, unspecified HF chronicity (HCC) (Primary Dx); Chronic obstructive pulmonary disease, unspecified COPD type (HCC); Mixed hyperlipidemia; Primary hypertension 02/19/2024 Telephone [facility] Cardiology [address] [place] [phone] Seema Veras NP Fatigue; weakness 02/19/2024 Orders Only [facility] Medical [facility] Cardiology [address] [place] [phone] Nereyda Guthrie MD 02/16/2024 NHUNG IP Outreach [facility] Accountable Care Organization [address] [place] [address] Yolanda Parkinson MA 02/15/2024 Orders Only [facility] Medical Group Cardiology [address] [place] [address] Tara Madrigal MD from Last 3 Months Allergies Active Allergy Reactions Criticality Noted Date [...] pain Active blood-glucose meter,continuo us (Dexcom G7 Radio Announcer) misc Activ e furosemide (LASIX) 40 mg [...] (12/13/2018): Added automatically from request for surgery [id number] Allergic rhinitis 08/22/2018 Attention deficit hyperactiv ity [...] Patient states she follows with Endo at [place], patient unable to recall the provider's name. [...] 2013 Encounter for routine gynecological examination 11/27/2013 Immunizations Name Administration Dates Next Due COVID-19 mRNA (ColonaryConcepts) 0.3 m L (30 mcg) vaccine (12 years and up) 12/08/2022 Hep A / Hep B 05/31/2021 Influenza, Quadrivalent, Karina l Culture-based MDCK, Preservative Free, Antibiotic Free, Intramuscular 11/20/2018 Influenza, Quadrivalent, Hig h Dose, Preservative Free, Intrr 12/08/2022,11/23/2021,11/10/2020 Influenza, Quadrivalent, Spl it, Preservative Free, Intramuscular 11/13/2019,11/09/2017,12/20/2016 Influenza, Trivalent, IM (MDV) 12/20/2012,2012 Influenza, Trivalent, Preser vative Free, Intramuscular 12/17/2012 Influenza, Unspecified 02/20/2023,02/20/2022 Zoeticx Sars-Cov-2 Bivalent V accination (12+ YRS) 11/23/2021 Pneumococcal Conjugate PCV 13 04/11/2017 Pneumococcal Polysaccharide PPV23 12/14/2020,11/2019 RSV Vaccine, Pref, Recombina nt, Subunit, Adjuvanted, PF, IM (Arexvy) 01/06/2023 Tdap 05/08/2013 ZOSTER Recombinant 12/14/2020,10/14/2020 Social History Tobacco Use Types Packs/Day Years [...] on file Legal Sex Female 3:03 AM ASSET PROTECTION 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 Gender Identity Not on file Sexual Orientation Not on file Last Filed Vital Signs Vital Sign Reading Time Taken Comments Blood Pressure 116/70 02/20/2024 11:03 AM ASSET PROTECTION OFFICER Pulse 93 02/20/2024 11:03 AM ASSET PROTECTION OFFICER Temperature 36.1 ??C (96.9 ??F) 09/04/2023 8:30 AM CD T Respiratory Rate 18 09/04/2023 8:30 AM CDT Oxygen Saturation 92% 02/20/2024 11:03 AM ASSET PROTECTION OFFICER Inhaled Oxygen Concentration - - Weight 78 kg (171 lb 14.4 oz) 02/20/2024 11:03 A M ASSET PROTECTION OFFICER Height 170.2 cm (5' 7 ) 02/20/2024 11:03 AM ASSET PROTECTION OFFICER Body Mass Index 26.92 02/20/2024 11:03 AM ASSET PROTECTION OFFICER Plan of Treatment Not on file Procedures Procedure Name Priority Date/Time Associated Diagnosis Comments CARDIOLOGY DOCUMENT SCAN Routine 03/01/2024 9:44 AM ASSET PROTECTION OFFICER ECG 12-LEAD Routine 02/20/2024 3:18 PM ASSET PROTECTION OFFICER Chronic obstructive pulmonary disease, unspecified COPD type (HCC) CARDIOLOGY DOCUMENT SCAN Routine 02/12/2024 11:12 AM ASSET PROTECTION OFFICER CARDIOLOGY DOCUMENT SCAN Routine 02/11/2024 2:23 PM ASSET PROTECTION OFFICER CARDIOLOGY DOCUMENT SCAN Routine 02/10/2024 2:22 PM ASSET PROTECTION OFFICER EGFR Routine 09/04/2023 9:22 AM CDT Fatigue, [...] long-term current use of insulin (CMS/HCC) (HCC) HM DIABETES EYE EXAM Routine 10/31/2022 9:39 AM CDT HM COLONOSCOPY Routine 06/30/2022 12:57 PM CDT from Last 3 Months or Most Recently Relevant to Health Maintenance Results * Cardiology Document Scan (03/01/2024 9:44 AM ASSET PROTECTION OFFICER) Anatomical Region Laterality Modality Other [facility] Slava Odonnell MD CV CARDIAC SERVICES PRO CEDURES Final Result * ECG 12 lead (02/20/2024 3:18 PM ASSET PROTECTION OFFICER) Keisha Persaud NP ECG ORDERABLES Final Result * Cardiology Document Scan (02/12/2024 11:12 AM ASSET PROTECTION OFFICER) Anatomical Region Laterality Modality Other Keisha Persaud NP CV CARDIAC SERVICES PROCEDUR ES Final Result * Cardiology Document Scan (02/11/2024 2:23 PM ASSET PROTECTION OFFICER) Anatomical Region Laterality Modality Other Tara Madrigal MD CV CARDIAC SERVICES PROCEDU RES Final Result * Cardiology Document Scan (02/10/2024 2:22 PM ASSET PROTECTION OFFICER) Anatomical Region Laterality Modality Other Tara Madrigal [...] BLOOD ORDERABLES Final Result Performing Organization Address [facility] [place] [address] [address] [place] [address] * Hepatitis C antibody Blood (08/18/2023 11:21 [...] ORDER JEREMIAH Final Result Performing Organization Address City/[facility] [place] [address] [address] [place] [address] * Albumin Creatinine Ratio, Urine (08/18/2023 11:21 [...] 08/18/2023 4:02 PM CDT us Carline Ramires HANDLE AND VENT MACHINE OPERATOR LAB URINE ORDERABLES Final Resul t Performing Organization Address [facility] [place] [address] [address] [place] [address] * (ABNORMAL) Hemoglobin A1c (08/18/2023 11:21 AM CDT) Hgb A1C 6.8(H) 4.0 - 5.6 % Estimated Average Glucose 148 mg/dL [place] Comment: The ADA recommends reporting an estimated Average Glucose (eAG) with all Hemoglobin A1c results using the equation derived from a study of 507 normal and diabetic adults. ??Minority populations were underrepresented and children were not included. ?? (Diabetes Care 31:3694-6755, 2008). ??The eAG is not equivalent to a fasting glucose. Blood 08/18/2023 11:2 1 AM CDT 08/18/2023 4:02 PM CDT us Carline Ramires HANDLE AND VENT MACHINE OPERATOR LAB BLOOD ORDERABLES Final Resul t Performing Organization Address [facility] [place] [address] [address] [facility] [place] [address] * (ABNORMAL) Lipid panel (08/18/2023 11:21 AM CDT) Cholesterol 126 30 - 199 mg/dL Comment: [...] on 2017. LDL, calculated 64 <=129 mg/dL [place] Comment: Interpretive Data Ages < or [...] revised on 2017. Non-HDL Cholesterol 96 mg/dL [place] Comment: Interpretive Data Ages [...] last revised on 2017. Chol/HDL ratio 4 [place] Blood 08/18/2023 11:2 1 AM CDT 08/18/2023 4:02 PM CDT us Carline Ramires HANDLE AND VENT MACHINE OPERATOR LAB [place]LOOD [place] [address] [address] [place] [address] * HM DIABETES EYE EXAM (10/31/2022 9:39 AM CDT) us Historical Provider HEALTH MAINTENANCE Final Result * HM COLONOSCOPY (06/30/2022 12:57 PM CDT) us Historical Provider HEALTH MAINTENANCE Final Result from Last 3 Months or Most Recently Relevant to Health Maintenance Insurance AETNA MEDICARE AETNA MEDICARE Care Teams Unix Architect Relationship Specialty Start Date End Date Carline Ramires NP [address] [place] [address] PCP - General Family Medicine 08/18/23 Cammie Woodruff OD [address] [place] [address] Optometry 03/13/19 Osmany Foster MD [address] [facility] [address] [place] [address] Referring Physician Gastroenterology 08/18/23 [facility] Endocrinology 08/18/23
--- OUTSIDE RECORDS SUMMARY | 2024-03-08 00:43 | XMS_ITS | Encounter Summary ---
Author Organization [facility] Healthcare Address [address] [place] [address] Care Team Providers Care Beveler Name Role Phone Cammie Woodruff OD Unavailable [phone] Carline Ramires NP Primary Care Provider [phone] Osmany Foster MD Unavailable [phone] Reason for Visit * Reason Onset Date Comments Lab Results 09/19/2023 Encounter Details Date Type Department Care Team (Late st Contact Info) Description 09/19/2023 Telephone [facility] Medical Group Primary Care at [address] [phone] Carline Ramires NP [address] [place] [address] [address] [place] [address] Lab Results Social History Tobacco Use Types Packs/Day Years [...] on file Legal Sex Female 3:03 AM PIN INSERTER 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 * Telephone Encounter - Estella Mendez MA - 09/19/2023 1:42 PM CDT Attempted to contact Yaneth with no answer. LMOM to contact the office back at [phone] Regarding: Telephone task has been made. Please relay: the recent labs showed no derangements, the white count was fine. Kidney function is okay as well. * Telephone Encounter - Estella Mendez MA - 09/19/2023 1:42 PM CDT ----- Message from Onofre Xavier MD sent at 09/17/2023 12:41 PM CDT ----- Please relay: the recent labs showed no derangements, the white count was fine. Kidney function is okay as well. documented in this encounter Plan of Treatment Not on file documented as of this encounter Visit Diagnoses Not on filedocumented in this encounter Additional Health Concerns Infection Onset Date Last Indicated Resolved Time MRSA Comment:R leg wound 08/04/23 08/04/2023 08/04/2023 01/31/2024 3 :05 AM PIN INSERTER REGULATOR documented as of this encounter Care Teams Beveler Relationship Specialty Start Date End Date Carline Ramires NP [address] [place] [address] PCP - General Family Medicine 08/18/23 Cammie Woodruff OD [address] [place] [address] Optometry 03/13/19 Osmany Foster MD [address] [facility] [address] [place] [address] Referring Physician Gastroenterology 08/18/23 [facility] Endocrinology 08/18/23 documented as of this encounter
--- OUTSIDE RECORDS SUMMARY | 2024-03-08 00:43 | XMS_ITS | Encounter Summary ---
Author Organization [facility] Healthcare Address [address] [place] [address] Care Team Providers Care Rn Icu Name Role Phone Cammie Woodruff [place] OD Unavailable Carline Ramires NP Primary Care Provider [phone] Osmany Foster MD Unavailable [phone] Encounter Details Date Type Department Care Team (Latest Contact Info) Description 09/04/2023 9:22 AM CDT - 09/04/2023 11:59 PM CDT Hospital Encounter [facility] [address] [place] [address] Fatigue, unspecified type Discharge Disposition: Discharge to home or self care Social History Tobacco Use Types Packs/Day Years [...] on file Legal Sex Female 3:03 AM STAFF SUBMARINE 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 Gender Identity Not on file Sexual Orientation Not on file documented as of this encounter Medications at Time of Discharge ARIPiprazole (ABILIFY) 30 mg tabletIndication s:Mixed Bipolar I Disorder Take 1 tablet (30 mg total) by mouth nightly atorvastatin (LIPITOR) 40 mg tablet Take 1 tablet (40 mg total) by mouth nightly 11/05/2018 ADRIAN DAVIS U-100 INSULIN 100 unit/mL (3 mL) insulin penIndications:t ype 2 diabetes mellitus Inject 18 Units under the skin nightly 11/22/2018 clotrimazole (MYCELEX) 10 mg hans desvenlafaxine ER (PRISTIQ) 100 mg 24 hr tablet 10/03/2022 dextroamphetamin e-amphetamine (ADDERALL) 20 mg tablet 1 tablet (20 mg total) Farxiga 10 mg tablet 10/25/2022 hydrocortisone 2.5 % cream 08/17/2023 meloxicam (MOBIC) 15 mg tablet Take 1 tablet (15 mg total) by mouth daily With food. Do not take with other NSAIDS (ibuprofen, naproxen, ect.) 90 tablet 1 05/10/2023 mesalamine (LIALDA) 1.2 gram EC tablet 10/04/2022 metoprolol XL (TOPROL-XL) 50 mg 24 hr tabletIndication s:hypertension Take 1 tablet (50 mg total) by mouth nightly mupirocin (BACTROBAN) 2 % ointment Apply topically 3 (three) times a day 22 g 1 08/25/2023 Ozempic 2 mg/dose (8 mg/3 mL) pen injector injection 07/23/2022 documented as of this encounter Discharge Disposition Disposition Code Departure Means Destination Discharge to home or self care documented in this encounter Plan of Treatment Not on file documented as of this encounter Procedures Procedure Name Priority Date/Time Associated Diagnosis Comments EGFR Routine 09/04/2023 9:22 AM CDT Fatigue, unspecified type DIFFERENTIAL AUTO Routine 09/04/2023 9:2 2 AM CDT Fatigue, unspecified type CBC WITH AUTO DIFFERENTIAL Routine 09/04/2023 9:22 AM CDT Fatigue, unspecified type BASIC METABOLIC PANEL Routine 09/04/2023 9:22 AM CDT Fatigue, unspecified type documented in this encounter Results * eGFR (09/04/2023 9:22 AM CDT) Pathologist [facility] eGFR >90 >=60 mL/min/1. 73 m2 Comment: [...] MD LAB BLOOD ORDERABLES Final Result [place] [address] [address] Department [place] [address] * Differential, auto (09/04/2023 9:22 AM CDT) Pathologist [facility] Neutrophil abs 4.2 1.5 - 6.5 K/cumm Imm gran abs 0.0 0.0 - 0.1 K/cumm [facility] Lymphocyte abs 2.6 0.8 - 3.3 K/cumm [facility] Monocyte abs 0.3 0.2 - 0.8 K/cumm [facility] Eosinophil abs 0.2 0.0 - 0.5 K/cumm [facility] Basophil abs 0.0 0.0 - 0.1 K/cumm [facility] Neutrophil pct 57.4 % [facility] Comment: Interpretive Data Percent cell count reference ranges are not reported, since discordance with absolute values may lead to misinterpretation of CBC data. Current Interpretive Data was last revised on 2017. Imm gran pct 0.4 % [facility] Comment: Interpretive Data Percent cell count reference ranges are not reported, since discordance with absolute values may lead to misinterpretation of CBC data. Current Interpretive Data was last revised on 2017. Lymphocyte pct 35.2 % [facility] Comment: Interpretive Data Percent cell count reference ranges are not reported, since discordance with absolute values may lead to misinterpretation of CBC data. Current Interpretive Data was last revised on 2017. Monocyte pct 4.3 % [facility] Comment: Interpretive Data Percent cell count reference ranges are not reported, since discordance with absolute values may lead to misinterpretation of CBC data. Current Interpretive Data was last revised on 2017. Eosinophil pct 2.3 % [facility] Comment: Interpretive Data Percent cell count reference ranges are not reported, since discordance with absolute values may lead to misinterpretation of CBC data. Current Interpretive Data was last revised on 2017. Basophil pct 0.4 % [facility] Comment: Interpretive Data Percent cell count reference ranges are not reported, since discordance with absolute values may lead to misinterpretation of CBC data. Current Interpretive Data was last revised on 2017. Blood 09/04/2023 9:22 AM CDT 09/04/2023 3:43 PM CDT us Onofre Xavier MD LAB [place] [address] [address] Department [place] [address] * (ABNORMAL) Basic metabolic panel (09/04/2023 9:22 AM CDT) Sodium 143 135 - 145 mmol/L Potassium, pl 4.0 3.3 - 4.9 mmol/L [facility] Chloride 104 97 - 110 mmol/L [facility] CO2 29 22 - 32 mmol/L [facility] Anion gap 10 2 - 15 mmol/L [facility] BUN 10 6 - 25 mg/dL [facility] Creatinine 0.57(L) 0.60 - 1.10 mg/dL [facility] Glucose 158 70 - 199 mg/dL [facility] Comment: Interpretive Data Fasting glucose >/= 126 [...] 2022. Calcium 9.3 8.5 - 10.3 mg/dL [facility] Blood 09/04/2023 9:22 AM CDT 09/04/2023 3:43 PM CDT us Onofre Xavier MD LAB BLOOD ORDERABLES Final Result [place] [address] [address] Department [place] [address] * (ABNORMAL) CBC with auto differential (09/04/2023 9:22 AM CDT) [facility] WBC 7.4 3.8 - 9.9 K/cumm Hgb 13.0 11.9 - 15.5 g/dL [facility] Hct 43.9 35.6 - 45.5 % [facility] Plt 196 150 - 400 K/cumm [facility] MPV 12.3 9.1 - 12.3 fL [facility] RBC 4.58 3.90 - 5.20 M/cumm [facility] MCV 95.9 81.3 - 96.4 fL [facility] MCH 28.4 27.1 - 33.3 pg [facility] MCHC 29.6(L) 32.3 - 35.7 g/dL [facility] RDW CV 14.6 11.1 - 14.9 % [facility] RDW SD 50.8(H) 35.7 - 48.1 fL [facility] NRBC abs 0.00 0.00 - 0.01 K/cumm [facility] Blood 09/04/2023 9:22 AM CDT 09/04/2023 3:43 PM CDT us Onofre Xavier MD LAB BLOOD ORDERABLES Final Result [facility] [address] [address] Department [place] [address] documented in this encounter Visit Diagnoses Diagnosis Fatigue, unspecified type documented in this encounter Additional Health Concerns Infection Onset Date Last Indicated Resolved Time MRSA Comment:R leg wound 08/04/23 08/04/2023 08/04/2023 01/31/2024 3 :05 AM STAFF SUBMARINE WARFARE OFFICER documented as of this encounter Care Teams Rn Icu Relationship Specialty Start Date End Date Carline Ramires NP [address] [place] [address] PCP - General Family Medicine 08/18/23 Cammie Woodruff OD [address] [place] [address] Optometry 03/13/19 Osmany Foster MD [address] [place] [address] Referring Physician Gastroenterology 08/18/23 [facility] Endocrinology 08/18/23 documented as of this encounter
--- OUTSIDE RECORDS SUMMARY | 2024-03-08 00:43 | XMS_ITS | Continuity of Care Document ---
Author Organization [facility] Address [address] [place] [address] Phone Care Team Providers Care Forensic Sergeant Name Role Phone Kimani Lopez MD Unavailable Unavailable Allergies, Adverse Reactions, Alerts Substance Reaction Status Criticality codeine Rash Active No Information Medications Medication Instructions Dosage Effective Dates (start - stop) Status Comments Vitamin B-12 50 mcg tablet - Active Procedures Procedure Date X-ray exam shoulder complete, minimum 2 views Office/outpatient visit,[facility] 2023 Advance Directives Directive Yes / No Effective Date File Name No Information Encounters Encounter Description Practice Location Reason(s) For Visit Diagnoses Date Provider Providers Copied on Encounter [facility], [address], [id number], tel:[phone] [facility] No Information 5 John Harman. 1050 [facility], [address], [id number] , [place]. tel:[phone] Office/outpat ient visit,[facility], [address], [id number], [place] tel:[phone] [facility] left shoulder pain (chief complaint)r ight shoulder pain (chief complaint) Pain in left shoulder 4 John Harman. 1050 [facility], [address], [id number] , [place]. tel: [phone] Family History Family Member Type Diagnosis Age At Onset Mother Problem (finding) Cancer, unknown Mother Problem (finding) Kidney Disease Payers Payer name Insurance type Covered green party ID Suzanne hassan(s) [employer] CI [id number] Social History Type Description Quantity Date Captured Comments Alcohol Use Details Unknown Caffeine Use Details Unknown Tobacco Use Status No Information Smoking Status No Information Sex Female Chief Complaint And Reason For Visit No Information Reason For Referral Reason For Referral No Information Plan Of Treatment Date Type Action Status Referral Ordered: MRI Upper extr joint, w/o contrast LT shoulder ordered Referral Ordered: X-ray exam shoulder complete, minimum 2 views LT shoulder ordered Appointment Yaneth Duarte BOOKED History Of Present Illness Encounter Date Complaint History Of Prese nt Illness left shoulder pain Yaneth Duarte is a 68 year old female. She presents with pain and weakness on the left side. She states that the symptoms have been acute non-traumatic and began 3 months ago. The symptoms occur constantly with intermittent worsening. The problem is worse. Currently the patient states that the symptoms are moderate-severe. The pain is described as aching, sharp and stabbing. The patient is experiencing pain in the following locations: lateral shoulder and anterior shoulder on the left side. She rates her current pain as 9/10. The pain radiates to the upper arm on the left side. The symptoms are aggravated by daily activities, lifting away from the body, moving the arm suddenly and sleeping in any position. Yaneth states that the symptoms are relieved by by prior injections (transiently). The most recent of the 3 injections was 10/22/23. The patient has had a previous x-ray. She has had rest, activity mods, icing/heat, NSAIDs, prior injections, MD directed strengthening. right shoulder pain She presents with pain on the right side. She states that the symptoms have been chronic non-traumatic. The symptoms occur occasionally. Currently the patient states that the symptoms are mild. Functional Status Date Functional Assessmen t No Information Instructions Date Instruction Additional Infor mation Given the concern fo r a tear of the rotator cuff, in order to evaluate the shoulder and rule out other pathology I have ordered and MRI of the involved shoulder. We discussed the need for continued ice, activity modifications, and over the counter pain medications as allowed by the patient's PCP. I have recommended avoidance of painful occupational, recreational, and daily living activities pending results. I will see the patient back in the office once results are available and we will discuss further treatment options, both non-surgical or surgical, as indicated. Questions answered, verbalized understanding.She would prefer we focus on the left shoulder for now, so we will re-evaluate the right as needed in the future. Related to Pain in left shoulder Assessments Type Assessment Date No Information Patient Care Teams Name Effective Dates (start - stop) Status Members No Information
--- OUTSIDE RECORDS SUMMARY | 2024-03-08 00:43 | XMS_ITS | Encounter Summary ---
Author Organization [facility] Healthcare Address [address] [place] [address] Care Team Providers Care Manager Cash Name Role Phone Cammie Woodruff OD Unavailable Carline Ramires NP Primary Care Provider Osmany Foster MD Unavailable [phone] Encounter Details Date Type Department Care Team (Late st Contact Info) Description 02/15/2024 Orders Only [facility] Medical Group Cardiology [address] [place] [address] Tara Madrigal MD [address] [place] [address] Social History Tobacco Use Types Packs/Day Years [...] on file Legal 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 Gender Identity Not on file Sexual Orientation Not on file documented as of this encounter Plan of Treatment Not on file documented as of this encounter Procedures Procedure Name Priority Date/Time Associated Diagnosis Comments CARDIOLOGY DOCUMENT SCAN Routine 02/11/2024 2:23 PM HEMMER LOCKSTITCH CARDIOLOGY DOCUMENT SCAN Routine 02/10/2024 2:22 PM HEMMER LOCKSTITCH documented in this encounter Results * Cardiology Document Scan (02/11/2024 2:23 PM HEMMER LOCKSTITCH) Anatomical Region Laterality Modality Other us Tara Madrigal MD CV CARDIAC SERVICES PROCEDU RES Final Result * Cardiology Document Scan (02/10/2024 2:22 PM HEMMER LOCKSTITCH) Anatomical Region Laterality Modality Other us Tara Madrigal MD CV CARDIAC SERVICES PROCEDU RES Final Result documented in this encounter Visit Diagnoses Not on filedocumented in this encounter Care Teams Manager Cash Relationship Specialty Start Date End Date Carline Ramires NP [address] [facility] [address] [place] [address] PCP - General Family Medicine 08/18/23 Cammie Woodruff OD [address] [place] [address] Optometry 03/13/19 Osmany Foster MD [address] [place], [place] [id number] Referring Physician Gastroenterology 08/18/23 [facility] Endocrinology 08/18/23 documented as of this encounter
--- OUTSIDE RECORDS SUMMARY | 2024-03-08 00:43 | XMS_ITS | Encounter Summary ---
Author Organization [facility] Healthcare Address [address] [place] [address] Care Team Providers Care Production Support Consultant Name Role Phone Cammie Woodruff OD Unavailable Carline Ramires NP Primary Care Provider [phone] Osmany Foster MD Unavailable [phone] Encounter Details Date Type Department Care Team (Late st Contact Info) Description 02/20/2024 Orders Only [facility] Medical Group Cardiology [address] [place] [address] Keisha Persaud NP [address] [place] [address] Social History Tobacco Use Types [...] on file Legal 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 Gender Identity Not on file Sexual Orientation Not on file documented as of this encounter Plan of Treatment Not on file documented as of this encounter Procedures Procedure Name Priority Date/Time Associated Diagnosis Comments CARDIOLOGY DOCUMENT SCAN Routine 024 11:12 AM STEAM GIGGER documented in this encounter Results * Cardiology Document Scan (02/12/2024 11:12 AM STEAM GIGGER) Anatomical Region Laterality Modality Other us Keisha Persaud NP CV CARDIAC SERVICES PROCEDUR ES Final Result documented in this encounter Visit Diagnoses Not on filedocumented in this encounter Care Teams Production Support Consultant Relationship Specialty Start Date End Date Carline Ramires NP [address] [place] [address] PCP - General Family Medicine 08/18/23 Cammie Woodruff OD [address] [place] [address] Optometry 03/13/19 Osmany Foster MD [address] [place] [address] Referring Physician Gastroenterology 08/18/23 [facility] Endocrinology 08/18/23 documented as of this encounter
--- OUTSIDE RECORDS SUMMARY | 2024-03-08 00:43 | XMS_ITS | Encounter Summary ---
Author Organization [facility] Healthcare Address [address] [place] [address] Care Team Providers Care Supervisor Coating Name Role Phone Cammie Woodrufft OD Unavailable [phone] Carline Ramires NP Primary Care Provider [phone] Osmany Foster MD Unavailable [phone] Encounter Details Date Type Department Care Team (Late st Contact Info) Description 09/04/2023 9:15 AM CDT Lab [facility] Medical Group Outpatient Lab at [address] [address] Fatigue (Primary Dx) Social History Tobacco Use Types [...] on file 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 Gender Identity Not on file Sexual Orientation Not on file documented as of this encounter Plan of Treatment Not on file documented as of this encounter Visit Diagnoses Diagnosis Fatigue- Primary Other malaise and fatigue documented in this encounter Additional Health Concerns Infection Onset Date Last Indicated Resolved Time MRSA Comment:R leg wound 08/04/23 08/04/2023 08/04/2023 01/31/2024 3 :05 AM WALLPAPER EMBOSSER HELPER documented as of this encounter Care Teams Supervisor Coating Relationship Specialty Start Date End Date Carline Ramires NP [address] [place] [address] PCP - General Family Medicine 08/18/23 Cammie Woodruff OD [address] [place] [address] Optometry 03/13/19 Osmany Foster MD [address] [place], [place] [id number] Referring Physician Gastroenterology 08/18/23 [facility] Endocrinology 08/18/23 documented as of this encounter
--- OUTSIDE RECORDS SUMMARY | 2024-03-08 00:44 | XMS_ITS | Encounter Summary ---
Author Organization [facility] Healthcare Address [address] [place] [address] Care Team Providers Care Actor Understudy Name Role Phone Cammie Woodruff OD Unavailable [phone] Carline Ramires NP Primary Care Provider [phone] Osmany Foster MD Unavailable [phone] Reason for Visit * Reason Onset Date Comments Joint Pain 08/19/2023 Encounter Details Date Type Department Care Team (Late st Contact Info) Description 08/19/2023 Nurse Triage [facility] Medical Group Primary Care at [address] [address] Carline Ramires NP [address] [place] [address] [address] [place] [address] Social History Tobacco Use Types [...] on file 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 No redness injoints. Pain in joints is 3/10. 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 She has a cellulitis on her leg that she needs to be on an antibiotic for. Patient would like to stop the clindamycin. Scheduled at [facility]. Tylenol prn, cool packs to joints as needed, rest as needed Call back if you have additional questions or concerns. Call back if symptoms change, persist or worsen. Reason for Disposition [1] Looks infected (spreading redness, pus) AND [2] large red area (> 2 in. or 5 cm) Protocols used: Hand and Wrist [id number] * Telephone Encounter - Bailee Driscoll RN - 08/19/2023 8:15 AM CDT Regarding: Moderate joint pain, the hands, elbow and shoulder all on the left side - [phone] ([employer]) ----- Message from Cruz Feliciano sent at 08/19/2023 8:15 AM CDT ----- The patient is experiencing joint pain, the hands, elbow and shoulder all on the left side. The patient is experiencing moderate pain. Her fingers are swollen and she is unable to bend. The patient was prescribed and antibiotic, she fills it's a symptom of taking the medication. documented in this encounter Plan of Treatment Not on file documented as of this encounter Visit Diagnoses Not on filedocumented in this encounter Additional Health Concerns Infection Onset Date Last Indicated Resolved Time MRSA Comment:R leg wound 08/04/23 08/04/2023 08/04/2023 01/31/2024 3 :05 AM FIGURE CLERK documented as of this encounter Care Teams Actor Understudy Relationship Specialty Start Date End Date Carline Ramires NP [address] [place] [address] PCP - General Family Medicine 08/18/23 Cammie Woodruff OD [address] [place] [address] Optometry 03/13/19 Osmany Foster MD [address] [place] [address] Referring Physician Gastroenterology 08/18/23 [facility] Endocrinology 08/18/23 documented as of this encounter
--- OUTSIDE RECORDS SUMMARY | 2024-03-08 00:44 | XMS_ITS | Encounter Summary ---
Author Organization [facility] Healthcare Address [address] [place] [address] Care Team Providers Care Dust Control Engineer Name Role Phone Laura Grider MD Primary Care Provider + Cammie Woodruff OD Unavailable Encounter Details Date Type Department Care Team (Late st Contact Info) Description 05/10/2023 Telephone [facility] Medical Group Orthopedics and Sports Medicine at [address] [address] Khalif Espitia MD [address] [place] [address] Social History Tobacco Use Types Packs/Day Years Used Date Smoking Tobacco: Former Cigarettes 1 39 1 971 - 2010 Smokeless Tobacco: Never Alcohol Use Standard Drinks/Week Comments No 0 (1 standard drink = 0.6 oz pur e alcohol) Comments Unknown Sex and Gender Information Value Date Recorded Sex Assigned at Not on file 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 I contacted Tristan bowles cancelled. documented in this encounter Plan of Treatment Not on file documented as of this encounter Visit Diagnoses Not on filedocumented in this encounter Care Teams Dust Control Engineer Relationship Specialty Start Date End Date Laura Grider MD PCP - General 03/19/13 08/17/23 Cammie Woodruff OD [address] [place] [address] Optometry 03/13/19 documented as of this encounter
--- OUTSIDE RECORDS SUMMARY | 2024-03-08 00:44 | XMS_ITS | Encounter Summary ---
Author Organization [facility] Healthcare Address [address] [place] [address] Care Team Providers Care Slot Machine Mechanic Name Role Phone Laura Grider MD Primary Care Provider + Cammie Woodruff OD Unavailable Encounter Details Date Type Department Care Team (Late st Contact Info) Description 05/10/2023 Orders Only [facility] Medical Group Orthopedics and Sports Medicine at [facility] [address] [address] Samia Ramsey PA [address] [place] [address] Social History Tobacco Use Types Packs/Day Years Used Date Smoking Tobacco: Former Cigarettes 1 39 1 971 - 2010 Smokeless Tobacco: Never Alcohol Use Standard Drinks/Week Comments No 0 (1 standard drink = 0.6 oz pur e alcohol) Comments Unknown Sex and Gender Information Value Date Recorded Sex Assigned at Not on file 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 Do not take with other NSAIDS (ibuprofen, naproxen, ect.) 90 tablet 1 05/10/2023 05/09/2024 documented in this encounter Progress Notes * Samia Ramsey PA - 05/10/2023 3:55 PM CDT . documented in this encounter Plan of Treatment Not on file documented as of this encounter Visit Diagnoses Not on filedocumented in this encounter Discontinued Medications Medication Sig Discontinue Reason Start Date End Da te meloxicam (MOBIC) 15 mg tablet Take 1 tablet (15 mg total) by mouth daily With food. Do not take with other NSAIDS (ibuprofen, naproxen, ect.) Reorder 05/09/2023 05/10/2023 documented as of this encounter Care Teams Slot Machine Mechanic Relationship Specialty Start Date End Date Laura Grider MD PCP - General 03/19/13 08/17/23 Cammie Woodruff OD [address] [place] [address] Optometry 03/13/19 documented as of this encounter
--- OUTSIDE RECORDS SUMMARY | 2024-03-08 00:44 | XMS_ITS | Encounter Summary ---
Author Organization [facility] Healthcare Address [address] [place] [address] Care Team Providers Care Administrative Support Assistant Name Role Phone Cammie Woodrufft OD Unavailable [phone] Carline Ramires NP Primary Care Provider [phone] Osmany Foster MD Unavailable [phone] Encounter Details Date Type Department Care Team (Late st Contact Info) Description 08/18/2023 11:30 AM CDT Lab [facility] Medical Group Outpatient Lab at [address] [address] Essential hypertension (Primary Dx) Social History Tobacco Use Types [...] on file Legal Sex Female 3:03 AM BANK BOSS Gender Identity Not on file Sexual Orientation Not on file documented as of this encounter Plan of Treatment Not on file documented as of this encounter Visit Diagnoses Diagnosis Essential hypertension- Primary Unspecified essential hypertension documented in this encounter Additional Health Concerns Infection Onset Date Last Indicated Resolved Time MRSA Comment:R leg wound 08/04/23 08/04/2023 08/04/2023 01/31/2024 3 :05 AM BANK BOSS documented as of this encounter Care Teams Administrative Support Assistant Relationship Specialty Start Date End Date Carline Ramires NP [address] [place] [address] PCP - General Family Medicine 08/18/23 Cammie Woodruff OD [address] [place] [address] Optometry 03/13/19 Osmany Foster MD [address] [place], [place] [address] Referring Physician Gastroenterology 08/18/23 [facility] Endocrinology 08/18/23 documented as of this encounter
--- OUTSIDE RECORDS SUMMARY | 2024-03-08 00:44 | XMS_ITS | Encounter Summary ---
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 Gender Identity Not on file Sexual Orientation Not on file documented as of this encounter Medications at Time of Discharge ARIPiprazole (ABILIFY) 30 mg tabletIndications:M ixed Bipolar I Disorder Take 1 tablet (30 mg total) by mouth nightly atorvastatin (LIPITOR) 40 mg tablet Take 1 tablet (40 mg total) by mouth nightly 11/05/2018 ADRIAN DAVIS U-100 INSULIN 100 unit/mL (3 mL) insulin penIndications:type 2 diabetes mellitus Inject 18 Units under the skin nightly 11/22/2018 desvenlafaxine ER (PRISTIQ) 100 mg 24 hr tablet 10/03/2022 Farxiga 10 mg tablet 10/25/2022 mesalamine (LIALDA) 1.2 gram EC tablet 10/04/2022 metoprolol XL (TOPROL-XL) 50 mg 24 hr tabletIndications:h ypertension Take 1 tablet (50 mg total) by mouth nightly Ozempic 2 mg/dose (8 mg/3 mL) pen injector injection 07/23/2022 ALPRAZolam (XANAX) 1 mg tabletIndications:a nxiety Take 1 tablet (1 mg total) by mouth daily as needed for anxiety 08/15/2018 4 azithromycin (ZITHROMAX) 250 mg tabletIndications:L trin[place] respiratory infection (e.g., bronchitis, pneumonia, pneumonitis, pulmonitis) Take 2 tablets the first day, then 1 tablet daily for 4 days. 6 tablet 10/26/2022 4 celecoxib (CeleBREX) 200 mg capsuleIndications: Osteoarthritis Take 200 mg by mouth daily as needed for pain 4 cephalexin (KEFLEX) 500 mg capsule 07/19/2022 4 cyanocobalamin (Vitamin B-12) 1,000 mcg/mL injection 1 mL every 30 (thirty) days 4 desvenlafaxine 100 mg tablet extended release 24hrIndications:Bip olar Disorder Take 100 mg by mouth every morning 4 dextroamphetamine-a mphetamine (ADDERALL) 20 mg tabletIndications:A ttention-Deficit Hyperactivity Disorder Take 1 tablet (20 mg total) by mouth 2 (two) times a day 08/16/2018 4 erythromycin (ILOTYCIN) ophthalmic ointment Apply ointment to left eyelid incisions [address] ointment inside the eye for irritation. 3.5 g 3 02/26/2019 4 lidocaine (Lidoderm) 5 % Apply 1 patch topically as needed 4 liraglutide (VICTOZA) 0.6 mg/0.1 mL (18 mg/3 mL) injectionIndication s:type 2 diabetes mellitus Inject 1.6 mg under the skin every morning Indications: type 2 diabetes mellitus 4 nitrofurantoin monohydrate (MACROBID) 100 mg capsule 10/19/2022 4 oxyCODONE-acetamino phen (PERCOCET) 10-325 mg per tablet Take 1 tablet by mouth as needed 01/08/2019 4 oxygenIndications:D yspnea Administer 2 L/min into each nostril nightly [address] (PROTONIX) 40 mg EC tablet 07/27/2022 4 peg 400-propylene glycol (SYSTANE) 0.4-0.3 % ophthalmic solutionIndications :Dry Eye Administer 1 drop into both eyes as needed 4 potassium 99 mg tabletIndications:l eg cramps Take 1 tablet (99 mg total) by mouth nightly 4 predniSONE (DELTASONE) 20 mg tablet 10/18/2022 4 documented as of this encounter Discharge Disposition Disposition Code Departure Means Destination Discharge to home or self care documented in this encounter Miscellaneous Notes * Result Encounter Note - Ana Jules MA - 10/26/2022 11:59 PM CDT Attempted to call, VM box was full * Result Encounter Note - Elizabeth Estes MA - 10/26/2022 11:59 PM CDT RESULTS GIVEN * Result Encounter Note - Nola Serna PA - 10/26/2022 3:21 PM CDT Please notify patient of negative PCR test for COVID, Influenza A/B, and RSR. Please have patient follow up with pcp or return to [facility] if they continue to have symptoms past 10-14 days. documented in this encounter Plan of Treatment Not on file documented as of this encounter Procedures Procedure Name Priority Date/Time Associated Diagnosis Comments INFLUENZA A/B, RSV, AND COVID-19 PCR Routine 10/26/2022 11:34 AM CDT Lower respiratory infection (e.g., bronchitis, pneumonia, pneumonitis, pulmonitis) documented in this encounter Results * Influenza A/B, RSV, and COVID-19 PCR Nasopharyngeal (10/26/2022 11:34 AM CDT) COVID-19 RNA Negative Negative [facility] Influenza A RNA Negative Negative [facility] Influenza B RNA Negative Negative [facility] RSV RNA Negative Negative [facility] Comment: Interpretive data: This test is performed using the [employer] Xpert Xpress CoV-2/Flu/RSV plus assay. This is a multiplex, real-time reverse transcriptase PCR assay intended for the qualitative detection of nucleic acid from SARS-CoV-2, influenza A, influenza B, and respiratory syncytial virus. This assay has been reviewed by the FDA for Emergency Use Authorization (EUA). The performance characteristics have been verified by the performing laboratory. Results must be considered in the clinical context, and a negative result does not rule out infection. Interpretive Data last revised 2021. Nasopharyngeal 10/26/2022 11 :34 AM CDT 10/26/2022 2:26 PM CDT Narrative [facility] - 10/26/2022 3:19 PM CDT Is the Patient experiencing symptoms consistent with COVID?->Yes Date of Symptom Onset->10/12/22 Reason for testing?->Symptomatic us Nicolle Sawyer NP LAB MICROBIOLOGY - GENERAL ORD ERABLES Final Result [facility] [id number] [address] Department [place] [address] documented in this encounter Visit Diagnoses Diagnosis Lower respiratory infection (e.g., bronchitis, pneumonia, pneumonitis, pulmonitis) documented in this encounter Additional Health Concerns Infection Onset Date Last Indicated Resolved Time COVID: Suspected 10/26/2022 10/26/2022 10/26/2022 3:21 PM CDT documented as of this encounter Care Teams Postal Supervisor Relationship Specialty Start Date End Date Laura Grider MD PCP - General 03/19/13 08/17/23 Cammie Woodruff OD [address] [place] [address] Optometry 03/13/19 documented as of this encounter
--- OUTSIDE RECORDS SUMMARY | 2024-03-08 00:44 | XMS_ITS | Encounter Summary ---
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 6 tablet 10/26/2022 4 cariprazine (Vraylar) 4.5 mg capsule Take 1 capsule every day by oral route. 03/08/2023 4 celecoxib (CeleBREX) 200 mg capsuleIndications: Osteoarthritis [...] for irritation. 3.5 g 3 02/26/2019 4 eszopiclone (LUNESTA) 2 mg tablet 05/01/2023 4 lidocaine (Lidoderm) 5 % Apply 1 [...] Procedure Name Priority Date/Time Associated Diagnosis Comments XR SHOULDER RIGHT 2 OR MORE VIEWS Schedule Routine, Read Routine (OP Routine) 05/11/2023 8:13 PM CDT Rotator cuff tendonitis, right documented in this encounter Results * XR Shoulder Right 4 Views (05/11/2023 8:13 PM CDT) Anatomical Region Laterality Modality Upper Extremities, Shoulder Right Comp uted Radiography Narrative 05/11/2023 8:13 PM CDT XR 4 views right shoulder including AP, Grashey, Scapular Y and Axillary lateral ??demonstrate high riding humeral head with bony change at GT, no acute fracture or dislocation us Khalif Espitia MD IMG XR PROCEDURES Final Resul t documented in this encounter Visit Diagnoses Not on filedocumented in this encounter Care Teams Division Engineer Relationship Specialty Start Date End Date Laura Grider MD PCP - General 03/19/13 08/17/23 Cammie Woodruff, DEWEY [address] [place] [address] Optometry 03/13/19 documented as of this encounter
--- OUTSIDE RECORDS SUMMARY | 2024-03-08 00:44 | XMS_ITS | Encounter Summary ---
Author Organization [facility] Healthcare Address [address] [place] [address] Care Team Providers Care Rental Clerk Tool And Equipment Name Role Phone Cammie Woodruff Carolina OD Unavailable [phone] Carline Ramires NP Primary Care Provider [phone] Osmany Foster MD Unavailable [phone] Encounter Details Date Type Department Care Team (Latest Contact Info) Description 08/18/2023 11:21 AM CDT - 08/18/2023 11:59 PM CDT Hospital Encounter [facility] [address] [place] [address] Type 2 diabetes mellitus without complication, with long-term current use of insulin (CMS/HCC) (HCC); Bipolar disorder, current episode mixed, mild (CMS/HCC) (HCC); Vitamin D deficiency; Essential hypertension; Encounter for hepatitis C screening test for low risk patient Discharge Disposition: Discharge to home or self [...] on file 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 Gender Identity Not on file Sexual Orientation Not on file documented as of this encounter Medications at Time of Discharge ARIPiprazole (ABILIFY) 30 mg tabletIndications :Mixed Bipolar I Disorder Take 1 tablet (30 mg total) by mouth nightly atorvastatin (LIPITOR) 40 mg tablet Take 1 tablet (40 mg total) by mouth nightly 11/05/2018 ADRIAN DAVIS U-100 INSULIN 100 unit/mL (3 mL) insulin penIndications:ty pe 2 diabetes mellitus Inject 18 Units under the skin nightly 11/22/2018 desvenlafaxine ER (PRISTIQ) 100 mg 24 hr tablet 10/03/2022 dextroamphetamine -amphetamine (ADDERALL) 20 mg tablet 1 tablet (20 mg total) Farxiga 10 mg tablet 10/25/2022 hydrocortisone 2.5 % cream 08/17/2023 meloxicam (MOBIC) 15 mg tablet Take 1 tablet (15 mg total) by mouth daily With food. Do not take with other NSAIDS (ibuprofen, naproxen, ect.) 90 tablet 1 05/10/2023 05/09/2024 mesalamine (LIALDA) 1.2 gram EC tablet 10/04/2022 metoprolol XL (TOPROL-XL) 50 mg 24 hr tabletIndications :hypertension Take 1 tablet (50 mg total) by mouth nightly Ozempic 2 mg/dose (8 mg/3 mL) pen injector injection 07/23/2022 ALPRAZolam (XANAX) 1 mg tabletIndications :anxiety Take 1 tablet (1 mg total) by mouth daily as needed for anxiety 08/15/2018 09/04/2023 clindamycin (CLEOCIN) 150 mg capsule Take 1 capsule (150 mg total) by mouth 3 (three) times a day for 10 days 30 capsule 08/18/2023 08/21/2023 clindamycin (CLEOCIN) 300 mg capsule Take 1 capsule (300 mg total) by mouth 3 (three) times a day for 10 days 30 capsule 08/18/2023 08/21/2023 documented as of this encounter Discharge Disposition Disposition Code Departure Means Destination Discharge to home or self care documented in this encounter Plan of Treatment Not on file documented as of this encounter Procedures Procedure Name Priority Date/Time Associated Diagnosis Comments OXYCODONE CONFIRMATION, URINE Routine 08/18/2023 11:21 AM CDT Bipolar disorder, current episode mixed, mild (CMS/HCC) (HCC) DRUGS OF ABUSE SCREEN, URINE WITH REFLEX CONFIRMATION Routine 08/18/2023 11:21 AM CDT Bipolar disorder, current episode mixed, mild (CMS/HCC) (HCC) EGFR Routine 08/18/2023 11:21 AM CDT Essential hypertension DIFFERENTIAL AUTO Routine 08/18/2023 11: 21 AM CDT Essential hypertension THYROID FUNCTION CASCADE Routine 08/18/2023 11:21 AM CDT Type 2 diabetes mellitus without complication, with long-term current use of insulin (CMS/HCC) (HCC) Essential hypertension AMPHETAMINE, URINE, CONFIRMATION Routine 08/18/2023 11:21 AM CDT Bipolar disorder, current episode mixed, mild (CMS/HCC) (HCC) CBC WITH AUTO DIFFERENTIAL Routine 08/18/2023 11:21 AM CDT Essential hypertension HEPATITIS C ANTIBODY Routine 08/18/2023 11:21 AM CDT Encounter for hepatitis C screening test for low risk patient ALBUMIN CREATININE RATIO, URINE Routine 08/18/2023 11:21 AM CDT Type 2 diabetes mellitus without complication, with long-term current use of insulin (CMS/HCC) (HCC) VITAMIN D 25 HYDROXY Routine 08/18/2023 11:21 AM CDT Vitamin D deficiency HEMOGLOBIN A1C Routine 08/18/2023 11:21 AM CDT Type 2 diabetes mellitus without complication, with long-term current use of insulin (CMS/HCC) (HCC) LIPID PANEL Routine 08/18/2023 11:21 AM CDT Type 2 diabetes mellitus without complication, with long-term current use of insulin (CMS/HCC) (HCC) Essential hypertension COMPREHENSIVE METABOLIC PANEL Routine 08/18/2023 11:21 AM CDT Essential hypertension documented in this encounter Results * (ABNORMAL) Oxycodone Confirmation, Urine (08/18/2023 11:21 AM CDT) Oxycodone Conf, Ur Confirmed Positive(A) CutOff 50 ng/mL Comment:Testing performed by : [facility], [address] [place]., [address] Oxymorphone Conf, Ur Does Not Confirm CutOff 50 ng/mL [place] Comment: Interpretive Data This test detects the presence or absence of drug compounds using LC Tandem mass spectrometry and is not intended to assess compliance with prescribed medications. While this test is highly specific, false positive and false negative results may occur in very rare circumstances. Contact the laboratory for consultation, if needed. Performance characteristics were determined by the [facility] in a manner consistent with CLIA requirement and has not been cleared or approved by the U.S. Food and Drug Administration. Current interpretive data was last revised 2020. Testing performed by: [facility], [address] [place] [address]., [address] Urine 08/18/2023 11:2 1 AM CDT 08/21/2023 9:43 AM CDT us Carline Ramires NP LAB [place] [address] [address] Department [place] [address] * (ABNORMAL) Amphetamine Confirmation, Urine (08/18/2023 11:21 AM CDT) Amphetamine Conf, Ur Confirmed Positive(A) CutOff 150ng/mL Comment:Testing performed by : [facility], [address] [place]., [address] Methamphetamine Conf, Ur Does Not Confirm CutOff 150ng/mL [place] Comment:Testing performed by : [facility], [address] [place]., [address] MDA Conf, Ur Does Not Confirm CutOff 150ng/mL [place] Comment:Testing performed by : [facility], [address] [place]., [address] MDMA Conf, Ur Does Not Confirm CutOff 50 ng/mL [facility] [place] Comment:Testing performed by : [facility], [address] [place]., [address] MDEA Conf, Ur Does Not Confirm CutOff 150ng/mL [place] Comment:Testing performed by : [facility], [address] [place]., [address] MBDB Conf, Ur Does Not Confirm CutOff 150ng/mL [place] Comment: Interpretive Data This test detects the presence or absence of drug compounds using LC Tandem mass spectrometry. While this test is highly specific, false positive and false negative results may occur in very rare circumstances. Contact the laboratory for consultation, if needed. Performance characteristics were determined by the [facility] in a manner consistent with CLIA requirement and has not been cleared or approved by the U.S. Food and Drug Administration. Current interpretive data was last revised on 2020. Testing performed by: [facility], [address] [place]., [address] Urine 08/18/2023 11:2 1 AM CDT 08/21/2023 9:43 AM CDT Carline Ramires NP LAB [place] [address] [address] Department [place] [address] * eGFR (08/18/2023 11:21 AM CDT) eGFR >90 >=60 mL/min/1. 73 [...] of Race in Diagnosing Kidney Disease, JASN 202). The CKD-EPI equation should not be used for patients with unstable renal function and has not been validated in children and those over 70. Current interpretive data was last reviewed 2020. Blood 08/18/2023 11:2 1 AM CDT 08/18/2023 4:04 PM CDT us Carline Ramires CELL COVERER LAB BLOOD ORDERABLES Final Resul t [facility] [address] [address] Department [place] [address] * (ABNORMAL) Differential, auto (08/18/2023 11:21 AM CDT) Neutrophil abs 7.3(H) 1.5 - 6.5 K/cumm Imm gran abs 0.1 0.0 - 0.1 K/cumm [facility] Lymphocyte abs 4.1(H) 0.8 - 3.3 K/cumm [facility] Monocyte abs 0.7 0.2 - 0.8 K/cumm [facility] Eosinophil abs 0.2 0.0 - 0.5 K/cumm [facility] Basophil abs 0.1 0.0 - 0.1 K/cumm [facility] Neutrophil pct 58.8 % [facility] Comment: Interpretive Data Percent cell count reference ranges are not reported, since discordance with absolute values may lead to misinterpretation of CBC data. Current Interpretive Data was last revised on 2017. Imm gran pct 0.6 % [facility] Comment: Interpretive Data Percent cell count reference ranges are not reported, since discordance with absolute values may lead to misinterpretation of CBC data. Current Interpretive Data was last revised on 2017. Lymphocyte pct 33.2 % [facility] Comment: Interpretive Data Percent cell count reference ranges are not reported, since discordance with absolute values may lead to misinterpretation of CBC data. Current Interpretive Data was last revised on 2017. Monocyte pct 5.4 % [facility] Comment: Interpretive Data Percent cell count reference ranges are not reported, since discordance with absolute values may lead to misinterpretation of CBC data. Current Interpretive Data was last revised on 2017. Eosinophil pct 1.5 % [facility] Comment: Interpretive Data Percent cell count reference ranges are not reported, since discordance with absolute values may lead to misinterpretation of CBC data. Current Interpretive Data was last revised on 2017. Basophil pct 0.5 % [facility] Comment: Interpretive Data Percent cell count reference ranges are not reported, since discordance with absolute values may lead to misinterpretation of CBC data. Current Interpretive Data was last revised on 2017. Blood 08/18/2023 11:2 1 AM CDT 08/18/2023 4:02 PM CDT us Carline Ramires NP LAB BLOOD ORDERABLES Final Resul t [facility] [address] [address] Department [place] [address] * (ABNORMAL) CBC with auto differential (08/18/2023 11:21 AM CDT) WBC 12.4(H) 3.8 - 9.9 K/cumm Hgb 13.6 11.9 - 15.5 g/dL [facility] Hct 42.6 35.6 - 45.5 % [facility] Plt 226 150 - 400 K/cumm [facility] MPV 11.9 9.1 - 12.3 fL [facility] RBC 4.64 3.90 - 5.20 M/cumm [facility] MCV 91.8 81.3 - 96.4 fL [facility] MCH 29.3 27.1 - 33.3 pg [facility] MCHC 31.9(L) 32.3 - 35.7 g/dL [facility] RDW CV 14.7 11.1 - 14.9 % [facility] RDW SD 49.2(H) 35.7 - 48.1 fL [facility] NRBC abs 0.00 0.00 - 0.01 K/cumm [facility] Blood 08/18/2023 11:2 1 AM CDT 08/18/2023 4:02 PM CDT us Carline Ramires CELL COVERER LAB BLOOD ORDERABLES Final Resul t [facility] [address] [address] Department [place] [address] * (ABNORMAL) Comprehensive metabolic panel (08/18/2023 11:21 AM CDT) Sodium 143 135 - 145 mmol/L Potassium, pl 4.0 3.3 - 4.9 mmol/L [facility] Chloride 104 97 - 110 mmol/L [facility] CO2 24 22 - 32 mmol/L [facility] Anion gap 15 2 - 15 mmol/L [facility] BUN 16 6 - 25 mg/dL [facility] Creatinine 0.56(L) 0.60 - 1.10 mg/dL [facility] Glucose 94 70 - 199 mg/dL [facility] Comment: Interpretive Data Fasting glucose >/= 126 [...] interpretive data was last revised 2022. Calcium 9.7 8.5 - 10.3 mg/dL [facility] Bilirubin, total 0.6 0.1 - 1.2 mg/dL [facility] Protein, pl 7.3 6.5 - 8.5 g/dL [facility] Albumin 3.9 3.5 - 5.0 g/dL [facility] Alk phos 89 40 - 130 Units/L [facility] ALT 33 7 - 45 Units/L [facility] AST 42 10 - 45 Units/L [facility] Blood 08/18/2023 11:2 1 AM CDT 08/18/2023 4:02 PM CDT Carline Ramires NP LAB BLOOD ORDERABLES Final Resul t Performing Organization Address [facility] de Phone Number [facility] [address] [address] [place] [address] * (ABNORMAL) Hemoglobin A1c (08/18/2023 11:21 AM CDT) [facility] Hgb A1C 6.8(H) 4.0 - 5.6 % Estimated Average Glucose 148 mg/dL [facility] Comment: The ADA recommends reporting an estimated Average Glucose (eAG) with all Hemoglobin A1c results using the equation derived from a study of 507 normal and diabetic adults. ??Minority populations were underrepresented and children were not included. ?? (Diabetes Care 31:0500-9965, 2008). ??The eAG is not equivalent to a fasting glucose. Blood 08/18/2023 11:2 1 AM CDT 08/18/2023 4:02 PM CDT us Carline Ramires NP LAB BLOOD ORDERABLES Final Resul t Performing Organization Address [facility] de Phone Number [facility] [address] Department [place] [address] * Hepatitis C antibody Blood (08/18/2023 11:21 AM CDT) [facility] Hep C Ab Nonreactive Nonreactive Comment: Interpretive [...] 08/18/2023 4:02 PM CDT us Carline Ramires CELL COVERER LAB MICROBIOLOGY - GENERAL ORDER [place] [address] [address] Department [place] [address] * (ABNORMAL) Lipid panel (08/18/2023 11:21 AM [...] on 2017. HDL 30(L) >=40 mg/dL [facility] Comment: Interpretive Data Ages < or = [...] on 2017. LDL, calculated 64 <=129 mg/dL [facility] Comment: Interpretive Data Ages < or = [...] revised on 2017. Chol/HDL ratio 4 [facility] Blood 08/18/2023 11:2 1 AM CDT 08/18/2023 4:02 PM CDT Carline Ramires CELL COVERER LAB BLOOD ORDERABLES Final Resul t Performing Organization Address [facility] de Phone Number [place] [address] [address] [place] [address] * Thyroid Function [place] (08/18/2023 11:21 AM CDT) Pathologist [facility] TSH 1.42 0.30 - 4.20 mcIUnit/mL Blood 08/18/2023 11:2 1 AM CDT 08/18/2023 4:02 PM CDT Carline Ramires NP LAB BLOOD ORDERABLES Final Resul t Performing Organization Address [facility] de Phone Number [facility] [address] [address] [employer] [place] [address] * (ABNORMAL) Vitamin D 25 hydroxy (08/18/2023 11:21 AM CDT) Vitamin D 25-OH 28(L) 30 - 80 ng/mL Blood 08/18/2023 11:2 1 AM CDT 08/18/2023 4:02 PM CDT us Carline Ramires CELL COVERER LAB BLOOD ORDERABLES Final Resul t [facility] [address] [address] Department [place] [address] * (ABNORMAL) Drugs of Abuse Screen, Urine with Reflex Confirmation (08/18/2023 11:21 AM CDT) Amphetamine, ur Screen Positive, presumptive (A) CutOff 500ng/mL Comment: Interpretive Data - Amphetamines: ??Samples containing greater than 500 ng/mL d-methamphetamine ??or other cross-reacting amphetamine compounds are reported as positive. ??Amphetamine immunoassays are subject to significant false positive rates due to cross-reactivity of non-amphetamine drugs. Confirmatory testing required for definitive results. Current Interpretive Data was last reviewed 2022. Barbiturates, ur Not Detected CutOff 200ng/mL [facility] Comment: Interpretive Data - Barbiturates: ??Samples containing greater than 200 ng/mL secobarbital or other cross-reacting barbiturate compounds are reported as positive. ??False positive and false negative results are possible. Confirmatory testing required for definitive results. Current Interpretive Data was last reviewed 2022. Benzodiazepines, ur Not Detected CutOff 100ng/mL [facility] Comment: Interpretive Data - Benzodiazepines: ??Samples containing greater than 100 ng/mL nordiazepam or other cross-reacting compounds are reported as positive. False positive and false negative results are possible. Confirmatory testing required for definitive results. Current Interpretive Data was last reviewed 2022. Cannabinoids, ur Not Detected CutOff 50 ng/mL [facility] Comment: Interpretive Data - Cannabinoids: ??Samples containing greater than 50 ng/mL delta-9 THC -COOH or other cross-reacting compounds are reported as positive. ??False positive and false negative results are possible. ??Confirmatory testing required for definitive results. Current Interpretive Data was last reviewed 2022. Cocaine, ur Not Detected CutOff 150ng/mL [facility] Comment: Interpretive Data - Cocaine: ??Samples containing greater than 150 ng/mL benzoylecgonine or other cross-reacting compounds are reported as positive. False positive and false negative results are possible. Confirmatory testing required for definitive results. Current Interpretive Data was last reviewed 2022. Fentanyl, Ur Not Detected CutOff 5 ng/mL [facility] Comment: Interpretive Data - Fentanyl: ?? Samples containing greater than 5 ng/mL norfentanyl, fentanyl, or other cross-reacting fentanyl compounds are reported as positive. False positive and false negative results are possible. Confirmatory testing required for definitive results. Current Interpretive Data was last reviewed 2023. Methadone, ur Not Detected CutOff 300ng/mL [facility] Comment: Interpretive Data - Methadone: ??Samples containing greater than 300 ng/mL d,l-methadone or other cross-reacting compounds are reported as positive. ??False positive and false negative results are possible. Confirmatory testing required for definitive results. Current Interpretive Data was last reviewed 2022. Opiates, ur Not Detected CutOff 300ng/mL [facility] Comment: Interpretive Data - Opiates: ??Samples containing greater than 300 ng/mL morphine or other cross-reacting compounds are reported as positive. ??False positive and false negative results are possible. Confirmatory testing required for definitive results. Current Interpretive Data was last reviewed 2022. Oxycodone, ur Screen Positive, presumptive (A) CutOff 100ng/mL [facility] Comment: Interpretive Data - Oxycodone: ??Samples containing greater than 100 ng/mL oxycodone or other cross-reacting compounds are reported as ??positive. ??False positive and false negative results are possible. Confirmatory testing required for definitive results. Current Interpretive Data was last reviewed 2022. Phencyclidine, ur Not Detected CutOff 25 ng/mL [facility] Comment: Interpretive Data - Phencyclidine: ??Samples containing greater than 25 ng/mL phencyclidine or other cross-reacting compounds are reported as positive. ??False positive and false negative results are possible. Confirmatory testing required for definitive results. Current Interpretive Data was last reviewed 2022. Urine Creatinine 37 mg/dL [facility] Comment: Interpretive Data Urine Creatinine: < 10 mg/dL is extremely dilute = or > 10 but < 20 mg/dL is dilute = or > 20 mg/dL is normal Current Interpretive Data was last revised on 2017. Urine 08/18/2023 11:2 1 AM CDT 08/18/2023 4:02 PM CDT Narrative [facility] - 08/18/2023 4:39 PM CDT Drug of Abuse screening is performed by immunoassay for medical purposes only. ??This is not to be used for Pain Management purposes. ??If Detected, confirmation testing will be performed for Amphetamines, Cocaine, Fentanyl, Methadone, Opiates, Oxycodone or Phencyclidine. us Carline Ramires NP LAB URINE ORDERABLES Final Resul t Performing Organization Address [facility] de Phone Number [place] [address] [address] [address] * Albumin Creatinine Ratio, Urine (08/18/2023 11:21 AM CDT) Albumin Ur <12.0 mg/L Comment: Interpretive Data No reference range established. Current interpretive data was last revised 2018. Creatinine Ur 37.6 mg/dL [facility] Comment: Interpretive Data No reference range established. Current interpretive data was last revised 2018. Albumin Creatinine Ratio, Ur See Comment 1 - 29 [facility] Comment:Unable to calculate Urine 08/18/2023 11:2 1 AM CDT 08/18/2023 4:02 PM CDT us Carline Ramires NP LAB URINE ORDERABLES Final Resul t Performing Organization Address [facility] [place] [address] [address] Department [employer] [place] [address] documented in this encounter Visit Diagnoses Diagnosis Type 2 diabetes mellitus without complication, with long-term current use of insulin (CMS/HCC) (HCC) Bipolar disorder, current episode mixed, mild (CMS/HCC) (HCC) Vitamin D deficiency Essential hypertension Unspecified essential hypertension Encounter for hepatitis C screening test for low risk patient documented in this encounter Additional Health Concerns Infection Onset Date Last Indicated Resolved Time MRSA Comment:R leg wound 08/04/23 08/04/2023 08/04/2023 01/31/2024 3 :05 AM MERCHANDISING DIRECTOR documented as of this encounter Care Teams Rental Clerk Tool And Equipment Relationship Specialty Start Date End Date Carline Ramires NP [address] [facility] [address] [place] [address] PCP - General Family Medicine 08/18/23 Cammie Woodruff OD [address] [place] [address] Optometry 03/13/19 Osmany Foster MD [address] [place], [place] [id number] Referring Physician Gastroenterology 08/18/23 [facility] Endocrinology 08/18/23 documented as of this encounter
--- OUTSIDE RECORDS SUMMARY | 2024-03-08 00:44 | XMS_ITS | Encounter Summary ---
Author Organization [facility] Healthcare Address [address] [place] [address] Care Team Providers Care Employee Relations Director Name Role Phone Laura Grider MD Primary Care Provider + Cammie Woodruff OD Unavailable Encounter Details Date Type Department Care Team (Late st Contact Info) Description 05/09/2023 Orders Only [facility] Orthopedics and Sports Medicine at [facility] [address] [phone] Samia Ramsey PA [address] [place] [address] Social History Tobacco Use Types Packs/Day Years Used Date Smoking Tobacco: Former Cigarettes 1 39 1 971 - 2010 Smokeless Tobacco: Never Alcohol Use Standard Drinks/Week Comments No 0 (1 standard drink = 0.6 oz pur e alcohol) Comments Unknown Sex and Gender Information Value Date Recorded Sex Assigned at Not on file 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 Do not take with other NSAIDS (ibuprofen, naproxen, ect.) 90 tablet 1 05/09/2023 05/10/2023 documented in this encounter Progress Notes * Samia Ramsey PA - 05/09/2023 2:41 PM CDT Meloxicam sent to pharmacy documented in this encounter Plan of Treatment Not on file documented as of this encounter Visit Diagnoses Not on filedocumented in this encounter Care Teams Employee Relations Director Relationship Specialty Start Date End Date Laura Grider MD PCP - General 03/19/13 08/17/23 Cammie Woodruff OD [address] [place] [address] Optometry 03/13/19 documented as of this encounter
--- OUTSIDE RECORDS SUMMARY | 2024-03-08 00:44 | XMS_ITS | Encounter Summary ---
Author Organization [facility] Healthcare Address [address] [place] [address] Care Team Providers Care Forestry Fire Aide Name Role Phone Laura Grider MD Primary Care Provider + Encounter Details Date Type Department Care Team (Latest Contact Info) Description 02/26/2019 12:39 PM COMPUTER AIDED DESIGN DESIGNER - 02/26/2019 4:48 PM COMPUTER AIDED DESIGN DESIGNER Hospital Encounter [facility] Operating [facility] [address] [place] [id number] Ernesto Crandall MD [id number] [address] Dermatochalasis of left upper eyelid Discharge Disposition: Discharge to home or self [...] on file Legal Sex Female 3:03 AM COMPUTER AIDED DESIGN DESIGNER Gender Identity Not on file Sexual Orientation Not on file documented as of this encounter Last Filed Vital Signs Vital Sign Reading Time Taken Comments Blood Pressure 122/97 02/26/2019 4:30 PM COMPUTER AIDED DESIGN DESIGNER Pulse 81 02/26/2019 4:30 PM COMPUTER AIDED DESIGN DESIGNER Temperature 36.5 ??C (97.7 ??F) 02/26/2019 4:07 PM CS T Respiratory Rate 16 02/26/2019 4:07 PM COMPUTER AIDED DESIGN DESIGNER Oxygen Saturation 95% 02/26/2019 4:30 PM COMPUTER AIDED DESIGN DESIGNER Inhaled Oxygen Concentration - - Weight 83.5 kg (184 lb) 02/25/2019 10:19 AM COMPUTER AIDED DESIGN DESIGNER Height 170.2 cm (5' 7 ) 02/25/2019 10:19 AM COMPUTER AIDED DESIGN DESIGNER Body Mass Index 28.82 02/25/2019 10:19 AM COMPUTER AIDED DESIGN DESIGNER documented in this encounter Discharge Diagnoses Diagnosis Dermatochalasis of left upper eyelid - DERMATOCHALASIS OF LEFT UPPER EYELID Type 2 diabetes mellitus without complications (CMS/HCC) ([facility]) - TYPE 2 DIABETES MELLITUS WITHOUT COMPLICATIONS Major depressive disorder, single episode, unspecified - MAJOR DEPRESSIVE DISORDER, SINGLE EPISODE, UNSPECIFIED Anxiety disorder, unspecified - ANXIETY DISORDER, UNSPECIFIED Personal history of nicotine dependence - PERSONAL HISTORY OF NICOTINE DEPENDENCE documented in this encounter Discharge Instructions * Discharge Instructions* Ernesto Crandall MD - 02/26/2019 4:02 PM COMPUTER AIDED DESIGN DESIGNER Instructions: - Avoid physical exertion and exercise. No yard or garden work. - Do not use make-up or cosmetic products on face. - Do not use contact lens in the operated eye, unless instructed to do so. - You may wear your glasses, as long as the nose piece does not push on the surgical area. - You may shower once a day starting on the day after surgery. Your incision and sutures can get gently wet in the shower once a day. Cold Pack: Use cold pack while awake for the first 48 hours. Then stop the cold pack and use a wet and warm compress for 5 minutes three times a day prior to applying the ointment. Medications: Pain: It is normal to have mild tenderness, aching, burning pain. Do not use aspirin or anti-inflammatory medications (such as ibuprofen) for pain. You may use Acetaminophen (500mg): 1 or 2 tablets every 6 hours. Do not take more than 6 tablets per day. Erythromycin ointment: Place the ointment on all incisions (sutures) 3 times a day starting day of surgery. If your eye is irritated you may place the ointment inside your eye. Eye Medications: Continue all eye medications (drops, ointments) you were using before surgery, unless instructed otherwise by your doctor. Please call the office or after-hours exchange ([phone]) if you experience: - Severe pain (mild discomfort is common). - Persistent bleeding unrelieved with gentle pressure (it is normal to have an occasional drop of blood coming from the incision or the eye for the first week after surgery). - Visual loss (mild blurring or difficulty reading is common after surgery, especially if there is ointment in your eye). UTER AIDED DESIGN DESIGNER documented in this encounter Medications at Time of Discharge ARIPiprazole (ABILIFY) 30 mg tabletIndications:M ixed Bipolar I Disorder Take 1 tablet (30 mg total) by mouth nightly atorvastatin (LIPITOR) 40 mg tablet Take 1 tablet (40 mg total) by mouth nightly 11/05/2018 BASAGLAR KWIKPEN U-100 INSULIN 100 unit/mL (3 mL) insulin penIndications:type 2 diabetes mellitus Inject 18 Units under the skin nightly 11/22/2018 metoprolol XL (TOPROL-XL) 50 mg 24 hr tabletIndications:h ypertension Take 1 tablet (50 mg total) by mouth nightly ALPRAZolam (XANAX) 1 mg tabletIndications:a nxiety Take 1 tablet (1 mg total) by mouth daily as needed for anxiety 08/15/2018 4 celecoxib (CeleBREX) 200 mg capsuleIndications: Osteoarthritis Take 200 mg by mouth daily as needed for pain 4 cyanocobalamin (Vitamin B-12) 1,000 mcg/mL injection [...] morning Indications: type 2 diabetes mellitus 4 oxyCODONE-acetamino phen (PERCOCET) 10-325 mg per tablet Take 1 tablet by mouth as needed 01/08/2019 4 oxygenIndications:D yspnea Administer 2 L/min into each nostril nightly 4 peg 400-propylene glycol (SYSTANE) 0.4-0.3 % ophthalmic solutionIndications :Dry Eye Administer 1 drop into both eyes as needed 4 potassium 99 mg tabletIndications:l eg cramps Take 1 tablet (99 mg total) by mouth nightly 4 documented as of this encounter Ordered Prescriptions Prescription Sig Dispense Quantity Refills Last Filled Start Date End Date erythromycin (ILOTYCIN) ophthalmic ointment Apply ointment to left eyelid incisions 3 times a day. Only place ointment inside the eye for irritation. 3.5 g 3 02/26/2019 4 documented in this encounter Discharge Disposition Disposition Code Departure Means Destination Discharge to home or self care documented in this encounter H&P Notes * Milton Shelton MD - 02/26/2019 1:55 PM CST I have reviewed the H&P, examined the patient, and endorse the findings as written. Plan of Care : Based on the above findings, I consider Yaneth Duarte to be an acceptable risk for : Procedure(s): BLEPHAROPLASTY UPPER EYELID In no acute distress, breathing comfortably on room air RRR, no m/r/g's CTAB, no wheezes or crackles Stable for surgery Cosigned by Ernesto Crandall MD at 02/26/2019 3:00 PM COMPUTER AIDED DESIGN DESIGNER UTER AIDED DESIGN DESIGNER UTER AIDED DESIGN DESIGNER Source Note - Ernesto Crandall MD - 02/26/2019 9:47 AM COMPUTER AIDED DESIGN DESIGNER Images from the original note were not included. Date of Visit: 08/22/2018 ?? Patient Name: Yaneth Duarte : 1955 Gender: female ? Primary Care Provider: Laura Grider MD Referring Provider: Cammie Woodruff* ?? History: This 62 y.o. year old female presents for evaluation of drooping of her left upper eyelid.This condition has been present for about 1 year. She feels it is interfering with several visual activities including sewing and driving. She does suffer from dry eye and uses artificial tears several times a day. No blood thinners. She has a cataract in the right eye and is scheduled undergo surgery later this month. ? Examination: Base Eye Exam ?? Visual Acuity (Snellen - Linear) ?? Right Left ?? Dist cc 20/60 20/25 ?? Dist ph sc 20/60 ? Correction: Glasses ? Tonometry (Tonopen, 8:33 AM) ?? Right Left ?? Pressure 17 19 ? Pupils ?? Dark Light Shape React APD ?? Right 3 2 Round + None ?? Left 3 2 Round + none ? Visual Montez ?? Right Left ? Full Full ? Extraocular Movement ?? Right Left ? Full Full ? Neuro/Psych ?? Oriented x3: Yes ?? Mood/Affect: Normal ? Slit Lamp and Fundus Exam ?? External Exam ?? Facial asymmetry with lower L orbit and brow. Low L superior rim with crowding. Moderate dermatochalasis with left upper eyelid (WHIT) hooding. Normal facial nerve function. ?? MRD1 3.5 mm 3 mm ?? Inferior scleral show 1 mm 2 mm ?? Lagophthalmos 0 mm 0 mm ? Exophthalmometry (Base: 94) ?? Right Left ? 20 20 ? Slit Lamp Exam ?? Right Left ?? Lids/Lashes Normal Normal ?? Conjunctiva/Sclera White and quiet White and quiet ?? Cornea inferior pannus Clear ?? Anterior Chamber Deep and quiet Deep and quiet ?? Iris Round and reactive Round and reactive ?? Lens Nuclear sclerosis Nuclear sclerosis ? Impression: The appearance of left upper eyelid droop is related to the combined effects of upper dermatochalasis, low brow and orbital asymmetry. There is significant crowding of the superior orbit on the left side secondary to a very low orbital rim. We discussed management options including observation and unilateral left upper eyelid blepharoplasty. She is aware of the possible complications of scarring, bleeding, infection, numbness, visual loss, incerased dry eye, asymmetry and the possible additional treatment. She is aware that the brow and bony asymmetry would persist and that at some point she may require right upper eyelid surgery should she developed visual symptoms on that side. She has asked that we contact insurance in an effort to obtain prior approval for surgery which could be coordinated after she recovers from right cataract extraction. ? I have personally examined the patient, participated in all aspects of their care, and formulated the treatment plan. ? Goldmann Visual Field Ptosis - OU - Both Eyes Right Eye Fixation was good. Cooperation was good. Reliability was good. Left Eye Fixation was good. Cooperation was good. Reliability was good. Notes There is superior obstruction to 20?? OD and 19?? OS. The montez improved to 59?? OD and 54?? OS with manual elevation. Linked Images GVF GVF HPI Referred by Dr. Cammie Prado Last seen her 6 wks ago Having Cataract sx OD 08-29-18 / Dr. Lam Using refresh prn ou for ILA. DM BSL last night was 180 Not on blood thinners Patient is here for an eval on droopy eyelid , left. ??Patient states the droop got very bad about a year ago to where it started to obstruct [facility]. ??Has to lift the lid to see more clearly. ?? Last edited by Elisa Beauchamp B.A. on 08/22/2018 ??8:26 AM. (History) ROS Positive for: Genitourinary, Musculoskeletal, HENT, Eyes Negative for: Constitutional, Gastrointestinal, Neurological, Skin, Endocrine, Cardiovascular, Respiratory, Psychiatric, Allergic/Imm, Heme/Lymph Last edited by Elisa Beauchamp B.A. on 08/22/2018 ??8:23 AM. (History) Base Eye Exam Visual Acuity (Snellen - Linear) Right Left Dist cc 20/60 20/25 Dist ph sc 20/60 Correction: Glasses Tonometry (Tonopen, 8:33 AM) Right Left Pressure 17 19 Pupils Dark Light Shape React APD Right 3 2 Round + None Left 3 2 Round + none Visual Montez Right Left Full Full Extraocular Movement Right Left Full Full Neuro/Psych Oriented x3: Yes Mood/Affect: Normal Edited by: Elisa Beauchamp B.A. Slit Lamp and Fundus Exam External Exam Facial asymmetry with lower L orbit and brow. Low L superior rim with crowding. Moderate dermatochalasis with left upper eyelid (WHIT) hooding. Normal facial nerve function. MRD1 3.5 mm 3 mm Inferior scleral show 1 mm 2 mm Lagophthalmos 0 mm 0 mm Exophthalmometry (Base: 94 mm) Right Left 20 mm 20 mm Slit Lamp Exam Right Left Lids/Lashes Normal Normal Conjunctiva/Sclera White and quiet White and quiet Cornea inferior pannus Clear Anterior Chamber Deep and quiet Deep and quiet Iris Round and reactive Round and reactive Lens Nuclear sclerosis Nuclear sclerosis Edited by: Ernesto Crandall MD Allergies: Codeine Medications: No current facility-administered medications for this encounter. Current Outpatient Medications: ??? ALPRAZolam (XANAX) 2 mg tablet, Take 2 mg by mouth daily as needed , Disp: , Rfl: ??? ARIPiprazole (ABILIFY) 30 mg tablet, Take 30 mg by mouth nightly , Disp: , Rfl: ??? atorvastatin (LIPITOR) 40 mg tablet, Take 40 mg by mouth nightly , Disp: , Rfl: ??? BASAGLAR KWIKPEN U-100 INSULIN 100 unit/mL (3 mL) insulin pen, Inject 8 Units under the skin nightly , Disp: , Rfl: ??? celecoxib (CeleBREX) 200 mg capsule, Take 200 mg by mouth daily as needed for pain, Disp: , Rfl: ??? cyanocobalamin (Vitamin B-12) 1,000 mcg/mL injection, 1 mL every 30 (thirty) days, Disp: , Rfl: ??? desvenlafaxine 100 mg tablet extended release 24hr, Take 100 mg by mouth every morning, Disp: ,Rfl: ??? dextroamphetamine-amphetamine (ADDERALL) 20 mg tablet, Take 20 mg by mouth 2 (two) times a day , Disp: , Rfl: ??? lidocaine (Lidoderm) 5 %, Apply 1 patch topically as needed, Disp: , Rfl: ??? liraglutide (VICTOZA) 0.6 mg/0.1 mL (18 mg/3 mL) injection, Inject 1.6 mg under the skin every morning Indications: type 2 diabetes mellitus, Disp: , Rfl: ??? metoprolol XL (TOPROL-XL) 50 mg 24 hr tablet, Take 50 mg by mouth nightly , Disp: , Rfl: ??? oxyCODONE-acetaminophen (PERCOCET) 10-325 mg per tablet, Take 1 tablet by mouth as needed, Disp: , Rfl: ??? oxygen, Administer 2 L/min into each nostril nightly, Disp: , Rfl: ??? peg 400-propylene glycol (SYSTANE) 0.4-0.3 % ophthalmic solution, Administer 1 drop into both eyes as needed, Disp: , Rfl: ??? potassium 99 mg tablet, Take 1 tablet by mouth nightly, Disp: , Rfl: Past Surgical History: Procedure Laterality Date ??? ABDOMINOPLASTY 1990 ??? BLEPHAROPLASTY Bilateral 1999 ??? CATARACT EXTRACTION Bilateral 11/2018 ??? COLONOSCOPY 2016 ??? HYSTERECTOMY 1988 ??? KNEE ARTHROPLASTY Left 2007 ??? KNEE ARTHROPLASTY Right 2009 Past Medical History: Diagnosis Date ??? Anxiety disorder Anxiety ??? Depression Depression ??? Diabetes mellitus (CMS/HCC) Diabetes ??? Heart murmur heart murmur ??? HX OTHER MEDICAL increased heart rate Social History Socioeconomic History ??? Marital status: Spouse name: None ??? Number of children: None ??? Years of education: None ??? Highest education level: None Occupational History ??? None Social Needs ??? Financial resource strain: None ??? Food insecurity: Worry: None Inability: None ??? Transportation needs: Medical: None Non-medical: None Tobacco Use ??? Smoking status: Former Smoker Packs/day: 1.00 Types: Cigarettes Start date: 1970 Last attempt to quit: 2010 Years since quittin.0 ??? Smokeless tobacco: Never Used Substance and Sexual Activity ??? Alcohol use: No ??? Drug use: Not Currently Types: Marijuana ??? Sexual activity: None Lifestyle ??? Physical activity: Days per week: None Minutes per session: None ??? Stress: None Relationships ??? Social connections: Talks on phone: None Gets together: None Attends yazdanism service: None Active member of club or organization: None Attends meetings of clubs or organizations: None Relationship status: None ??? Intimate partner violence: Fear of current or ex partner: None Emotionally abused: None Physically abused: None Forced sexual activity: None Other Topics Concern ??? None Social History Narrative ??? None UTER AIDED DESIGN DESIGNER * Ernesto Crandall MD - 02/26/2019 9:47 AM CST Images from the original note were not included. Date of Visit: 08/22/2018 ?? Patient Name: Yaneth Duarte : 1955 Gender: female ? Primary Care Provider: Laura Grider MD Referring Provider: Cammie Woodruff* ?? History: This 62 y.o. year old female presents for evaluation of drooping of her left upper eyelid.This condition has been present for about 1 year. She feels it is interfering with several visual activities including sewing and driving. She does suffer from dry eye and uses artificial tears several times a day. No blood thinners. She has a cataract in the right eye and is scheduled undergo surgery later this month. ? Examination: Base Eye Exam ?? Visual Acuity (Snellen - Linear) ?? Right Left ?? Dist cc 20/60 20/25 ?? Dist ph sc 20/60 ? Correction: Glasses ? Tonometry (Tonopen, 8:33 AM) ?? Right Left ?? Pressure 17 19 ? Pupils ?? Dark Light Shape React APD ?? Right 3 2 Round + None ?? Left 3 2 Round + none ? Visual Montez ?? Right Left ? Full Full ? Extraocular Movement ?? Right Left ? Full Full ? Neuro/Psych ?? Oriented x3: Yes ?? Mood/Affect: Normal ? Slit Lamp and Fundus Exam ?? External Exam ?? Facial asymmetry with lower L orbit and brow. Low L superior rim with crowding. Moderate dermatochalasis with left upper eyelid (WHIT) hooding. Normal facial nerve function. ?? MRD1 3.5 mm 3 mm ?? Inferior scleral show 1 mm 2 mm ?? Lagophthalmos 0 mm 0 mm ? Exophthalmometry (Base: 94) ?? Right Left ? 20 20 ? Slit Lamp Exam ?? Right Left ?? Lids/Lashes Normal Normal ?? Conjunctiva/Sclera White and quiet White and quiet ?? Cornea inferior pannus Clear ?? Anterior Chamber Deep and quiet Deep and quiet ?? Iris Round and reactive Round and reactive ?? Lens Nuclear sclerosis Nuclear sclerosis ? Impression: The appearance of left upper eyelid droop is related to the combined effects of upper dermatochalasis, low brow and orbital asymmetry. There is significant crowding of the superior orbit on the left side secondary to a very low orbital rim. We discussed management options including observation and unilateral left upper eyelid blepharoplasty. She is aware of the possible complications of scarring, bleeding, infection, numbness, visual loss, incerased dry eye, asymmetry and the possible additional treatment. She is aware that the brow and bony asymmetry would persist and that at some point she may require right upper eyelid surgery should she developed visual symptoms on that side. She has asked that we contact insurance in an effort to obtain prior approval for surgery which could be coordinated after she recovers from right cataract extraction. ? I have personally examined the patient, participated in all aspects of their care, and formulated the treatment plan. ? Goldmann Visual Field Ptosis - OU - Both Eyes Right Eye Fixation was good. Cooperation was good. Reliability was good. Left Eye Fixation was good. Cooperation was good. Reliability was good. Notes There is superior obstruction to 20?? OD and 19?? OS. The montez improved to 59?? OD and 54?? OS with manual elevation. Linked Images GVF GVF HPI Referred by Dr. Cammie Prado Last seen her 6 wks ago Having Cataract sx OD 08-29-18 / Dr. Lam Using refresh prn ou for ILA. DM BSL last night was 180 Not on blood thinners Patient is here for an eval on droopy eyelid , left. ??Patient states the droop got very bad about a year ago to where it started to obstruct [facility]. ??Has to lift the lid to see more clearly. ?? Last edited by Elisa Beauchamp B.A. on 08/22/2018 ??8:26 AM. (History) ROS Positive for: Genitourinary, Musculoskeletal, HENT, Eyes Negative for: Constitutional, Gastrointestinal, Neurological, Skin, Endocrine, Cardiovascular, Respiratory, Psychiatric, Allergic/Imm, Heme/Lymph Last edited by Elisa Beauchamp B.A. on 08/22/2018 ??8:23 AM. (History) Base Eye Exam Visual Acuity (Snellen - Linear) Right Left Dist cc 20/60 20/25 Dist ph sc 20/60 Correction: Glasses Tonometry (Tonopen, 8:33 AM) Right Left Pressure 17 19 Pupils Dark Light Shape React APD Right 3 2 Round + None Left 3 2 Round + none Visual Montez Right Left Full Full Extraocular Movement Right Left Full Full Neuro/Psych Oriented x3: Yes Mood/Affect: Normal Edited by: Elisa Beauchamp B.A. Slit Lamp and Fundus Exam External Exam Facial asymmetry with lower L orbit and brow. Low L superior rim with crowding. Moderate dermatochalasis with left upper eyelid (WHIT) hooding. Normal facial nerve function. MRD1 3.5 mm 3 mm Inferior scleral show 1 mm 2 mm Lagophthalmos 0 mm 0 mm Exophthalmometry (Base: 94 mm) Right Left 20 mm 20 mm Slit Lamp Exam Right Left Lids/Lashes Normal Normal Conjunctiva/Sclera White and quiet White and quiet Cornea inferior pannus Clear Anterior Chamber Deep and quiet Deep and quiet Iris Round and reactive Round and reactive Lens Nuclear sclerosis Nuclear sclerosis Edited by: Ernesto Crandall MD Allergies: Codeine Medications: No current facility-administered medications for this encounter. Current Outpatient Medications: ??? ALPRAZolam (XANAX) 2 mg tablet, Take 2 mg by mouth daily as needed , Disp: , Rfl: ??? ARIPiprazole (ABILIFY) 30 mg tablet, Take 30 mg by mouth nightly , Disp: , Rfl: ??? atorvastatin (LIPITOR) 40 mg tablet, Take 40 mg by mouth nightly , Disp: , Rfl: ??? BASAGLAR KWIKPEN U-100 INSULIN 100 unit/mL (3 mL) insulin pen, Inject 8 Units under the skin nightly , Disp: , Rfl: ??? celecoxib (CeleBREX) 200 mg capsule, Take 200 mg by mouth daily as needed for pain, Disp: , Rfl: ??? cyanocobalamin (Vitamin B-12) 1,000 mcg/mL injection, 1 mL every 30 (thirty) days, Disp: , Rfl: ??? desvenlafaxine 100 mg tablet extended release 24hr, Take 100 mg by mouth every morning, Disp: ,Rfl: ??? dextroamphetamine-amphetamine (ADDERALL) 20 mg tablet, Take 20 mg by mouth 2 (two) times a day , Disp: , Rfl: ??? lidocaine (Lidoderm) 5 %, Apply 1 patch topically as needed, Disp: , Rfl: ??? liraglutide (VICTOZA) 0.6 mg/0.1 mL (18 mg/3 mL) injection, Inject 1.6 mg under the skin every morning Indications: type 2 diabetes mellitus, Disp: , Rfl: ??? metoprolol XL (TOPROL-XL) 50 mg 24 hr tablet, Take 50 mg by mouth nightly , Disp: , Rfl: ??? oxyCODONE-acetaminophen (PERCOCET) 10-325 mg per tablet, Take 1 tablet by mouth as needed, Disp: , Rfl: ??? oxygen, Administer 2 L/min into each nostril nightly, Disp: , Rfl: ??? peg 400-propylene glycol (SYSTANE) 0.4-0.3 % ophthalmic solution, Administer 1 drop into both eyes as needed, Disp: , Rfl: ??? potassium 99 mg tablet, Take 1 tablet by mouth nightly, Disp: , Rfl: Past Surgical History: Procedure Laterality Date ??? ABDOMINOPLASTY 1990 ??? BLEPHAROPLASTY Bilateral 1999 ??? CATARACT EXTRACTION Bilateral 11/2018 ??? COLONOSCOPY 2016 ??? HYSTERECTOMY 1988 ??? KNEE ARTHROPLASTY Left 2007 ??? KNEE ARTHROPLASTY Right 2009 Past Medical History: Diagnosis Date ??? Anxiety disorder Anxiety ??? Depression Depression ??? Diabetes mellitus (CMS/HCC) Diabetes ??? Heart murmur heart murmur ??? HX OTHER MEDICAL increased heart rate Social History Socioeconomic History ??? Marital status: Spouse name: None ??? Number of children: None ??? Years of education: None ??? Highest education level: None Occupational History ??? None Social Needs ??? Financial resource strain: None ??? Food insecurity: Worry: None Inability: None ??? Transportation needs: Medical: None Non-medical: None Tobacco Use ??? Smoking status: Former Smoker Packs/day: 1.00 Types: Cigarettes Start date: 1970 Last attempt to quit: 2010 Years since quittin.0 ??? Smokeless tobacco: Never Used Substance and Sexual Activity ??? Alcohol use: No ??? Drug use: Not Currently Types: Marijuana ??? Sexual activity: None Lifestyle ??? Physical activity: Days per week: None Minutes per session: None ??? Stress: None Relationships ??? Social connections: Talks on phone: None Gets together: None Attends yazdanism service: None Active member of club or organization: None Attends meetings of clubs or organizations: None Relationship status: None ??? Intimate partner violence: Fear of current or ex partner: None Emotionally abused: None Physically abused: None Forced sexual activity: None Other Topics Concern ??? None Social History Narrative ??? None UTER AIDED DESIGN DESIGNER documented in this encounter Miscellaneous Notes * Op Note - Ernetso Crandall MD - 02/26/2019 3:24 PM CST Operative Note Attending Surgeon: Ernesto Crandall MD Surgeon(s): MD Milton López MD Surgical Team: Director Paid Media: Nader Cadet RN Scrub: ST Zac DATE OF SURGERY : 02/26/2019 Preoperative Diagnosis: Left Upper Dermatochalasis Postoperative Diagnosis: Left Upper Dermatochalasis Procedure: Left Upper Blepharoplasty Operative Findings The patient was positioned on the operating table. The entire face was prepped and draped. A time-out was performed and the operative sites were verified. A left eyelid crease incision was marked andforceps used to measure the amount of redundant skin that could be safely excised. Infiltrative anesthesia was administered. Corneal protectors were utilized throughout the surgical dissection. Fifteen blade incision was created and redundant skin was excised with Raymond scissors. A portion of the exposed preseptal orbicularis muscle was then excised. Bipolar cautery was applied throughout thecase to maintain hemostasis. The orbital septa were opened and redundant medial and central orbital fat was excised and the fat pedicles were cauterized. The pretarsal orbicularis muscle was then fixated to the underlying aponeurosis with 7 0 Vicryl sutures, stabilizing the eyelid crease. The lateral orbicularis muscle was closed with deep 7 0 Vicryl sutures. The skin incision was then closed with 7 0 Prolene sutures. At the end the case there was full hemostasis and full eyelid closure. she appeared to tolerate theprocedure well and was delivered to the recovery area in stable condition where she will be observed prior to discharge. There were given instructions to call should any difficulty prior to scheduledoffice visit. Estimated Blood Loss: Minimal Specimens: No specimen collected in procedure Implants: Nothing was implanted during the procedure Complications: none Condition on Discharge from the operating room was stable. Ernesto Crandall MD Date: 02/26/2019 Time: 4:02 PM Teaching Attestation: I was present and directly participated in the entire procedure (including opening and closing). UTER AIDED DESIGN DESIGNER * Perioperative Nursing Note - Tracie You RN - 02/25/2019 10:26 AM CST [facility] Pre[facility] Planning Perioperative Nursing Note Telephone Preoperative Evaluation ([facility]) - TELEPHONE ONLY, NO PHYSICAL EXAM Date: 02/25/19 Vitals: 02/25/19 1019 Weight: 83.5 kg (184 lb) Height: 170.2 cm (5' 7 ) CHEST CIRCUMFERENCE: N/A Social History Tobacco Use Smoking Status Former Smoker ??? Packs/day: 1.00 ??? Types: Cigarettes ??? Start date: 1970 ??? Last attempt to quit: 2009 ??? Years since quittin.0 Smokeless Tobacco Never Used Substance and Sexual Activity Alcohol Use No Substance and Sexual Activity Drug Use Not Currently ??? Types: Marijuana Outpatient Medications Marked as Taking for the 02/26/19 encounter (Hospital Encounter) with Ernesto Crandall MD Medication Sig Dispense Refill ??? ALPRAZolam (XANAX) 2 mg tablet Take 2 mg by mouth daily as needed ??? ARIPiprazole (ABILIFY) 30 mg tablet Take 30 mg by mouth nightly ??? atorvastatin (LIPITOR) 40 mg tablet Take 40 mg by mouth nightly ??? BASAGLAR KWIKPEN U-100 INSULIN 100 unit/mL (3 mL) insulin pen Inject 8 Units under the skin nightly ??? celecoxib (CeleBREX) 200 mg capsule Take 200 mg by mouth daily as needed for pain ??? cyanocobalamin (Vitamin B-12) 1,000 mcg/mL injection 1 mL every 30 (thirty) days ??? desvenlafaxine 100 mg tablet extended release 24hr Take 100 mg by mouth every morning ??? dextroamphetamine-amphetamine (ADDERALL) 20 mg tablet Take 20 mg by mouth 2 (two) times a day ??? lidocaine (Lidoderm) 5 % Apply 1 patch topically as needed ??? liraglutide (VICTOZA) 0.6 mg/0.1 mL (18 mg/3 mL) injection Inject 1.6 mg under the skin every morning Indications: type 2 diabetes mellitus ??? metoprolol XL (TOPROL-XL) 50 mg 24 hr tablet Take 50 mg by mouth nightly ??? oxyCODONE-acetaminophen (PERCOCET) 10-325 mg per tablet Take 1 tablet by mouth as needed ??? oxygen Administer 2 L/min into each nostril nightly ??? peg 400-propylene glycol (SYSTANE) 0.4-0.3 % ophthalmic solution Administer 1 drop into both eyes as needed ??? potassium 99 mg tablet Take 1 tablet by mouth nightly Implants No active implants to display in this view. SKIN Piercings Remaining: Yes Wound (LDAs) Type of Wound (LDA): (None) SCREENINGS Bragg Fall Risk Score: 15 Fish index score: 100 Is someone currently physically or emotionally hurting you or your family?: Denies NUTRITION PATIENT CARE PLANNING Advance Directives (For Healthcare) Advance Directive: Patient does not have advance directive Communication/Maintenance And Operations Supervisor Needs Communication Needs: None Patient's Preferred Language: Monegasque Assistive Devices/DME: Oxygen Discharge Planning Type of Residence: Private residence Living Arrangements: Spouse/significant other Support Systems: Spouse/significant other Patient expects to be discharged to:: Private residence(Mentally Retarded Teacher and Caregiver: or friend) ADDITIONAL COMMENTS/ FOLLOW UP UTER AIDED DESIGN DESIGNER * Pre-Procedure Instructions - Tracie You RN - 02/25/2019 10:22 AM CST PRE-SURGICAL INSTRUCTIONS ?? Surgery location provided to patient ?? Arrival time and surgical time will be provided by your surgeon. ?? Bring a current list of all medications. ?? Bring your photo ID and insurance card with you. ?? Bring a method of payment for any deductible that may be due. Antiseptic/antibacterial soap will decrease the amount of germs on your skin. The chance of gettingan infection will reduce so it is important to minimize risk for infection by doing the following: ?? Change bed linens the night before surgery so you are sleeping in clean sheets . ?? Shower the evening before and the morning of surgery with an antibacterial soap such as dial or chlorhexidine. ?? Wash your hair and face with your regular shampoo ( no conditioners) and facial cleanser. Do notuse the antiseptic soap on your face or hair. ?? Do not shave the area where surgery is to be performed 24 hours prior to surgery. ?? No lotions, powders, creams, make-up, deodorant, hair products or Vaseline the morning of surgery ?? Wear clean loose comfortable clothes the morning of surgery ?? Eye Surgery Process instruction sheet discussed with patient If your surgeon's office has not notified you of your surgery time within 2 days of your surgery, please call [phone] and ask for your surgeon's office Dr. Crandall. UTER AIDED DESIGN DESIGNER * Pre-Procedure Instructions - Irma Villegas NP - 02/25/2019 10:20 AM CST [facility] Preoperative Assessment and Planning CPAP Clinic Location: [facility] The night before your surgery: * Do not eat or drink anything after midnight. This includes candy, mint, gums, chewable antacids (TUMS, Rolaids) and cough drops * Do not smoke after midnight the night before surgery. It is best to stop smoking now to improve your health. The morning of your surgery: * You may brush your teeth and rinse your mouth out. * Do not glue your dentures. * Do not wear jewelry, body piercings, makeup, hairpins, false eyelashes or contact lenses to the hospital. * Leave any valuables at home or with your family. You may want to bring a credit card if you want to use our Mobile Pharm[facility] for your discharge medications. If you have an implantable device with a remote, bring the remote with you on the day of surgery. Outpatient Surgery: * You must have a responsible adult drive you home and stay with you for 24 hours after your surgery * You cannot be alone at home or in a hotel * Please call your surgeon's office if you do not have someone to drive you home and/or stay with you after surgery * Please bring any items you may need to spend the night in the hospital. Sometimes patients need to be cared for in the hospital overnight. If you have Diabetes: * If your blood sugar is low before you come to the hospital, drink a small amount of sugar water or clear juice like apple or cranberry juice. DO NOT drink orange or pineapple juice. These are not clear liquids. * If you take insulin be sure to read the Medicine Instructions. * Please call your surgeon and/or the CPAP Clinic if you have any questions. Instructions For Your Medications: Pre-Surgery Instructions: Medication Instructions ??? ALPRAZolam (XANAX) 2 mg tablet Take on day of surgery if needed ??? ARIPiprazole (ABILIFY) 30 mg tablet Don't take on day of surgery ??? atorvastatin (LIPITOR) 40 mg tablet Don't take on day of surgery ??? BASAGLAR KWIKPEN U-100 INSULIN 100 unit/mL (3 mL) insulin pen Take 6 units the night before surgery. ??? celecoxib (CeleBREX) 200 mg capsule Don't take on day of surgery ??? cyanocobalamin (Vitamin B-12) 1,000 mcg/mL injection Don't take on day of surgery ??? desvenlafaxine 100 mg tablet extended release 24hr Take morning of surgery ??? dextroamphetamine-amphetamine (ADDERALL) 20 mg tablet Don't take on day of surgery ??? lidocaine (Lidoderm) 5 % Don't take on day of surgery ??? liraglutide (VICTOZA) 0.6 mg/0.1 mL (18 mg/3 mL) injection Don't take on day of surgery ??? metoprolol XL (TOPROL-XL) 50 mg 24 hr tablet Don't take on day of surgery ??? oxyCODONE-acetaminophen (PERCOCET) 10-325 mg per tablet Take on day of surgery if needed ??? peg 400-propylene glycol (SYSTANE) 0.4-0.3 % ophthalmic solution Per surgeon's instructions ??? potassium 99 mg tablet Don't take on day of surgery General Instructions For Medications: ?? Stop all of these medications 7-14 days prior to your surgery: Vitamin E, Herbal medicines, DietPills ?? If you have pain, you may take tylenol (acetaminophen). Do not take more than 6 tablets or 3000 mg (3 g) within a 24 period. Call your surgeon and the CPAP clinic if any of the following happens before surgery: ?? Any changes in your health ?? You have a fever ?? You have any signs of an infection (chest, urinary tract or tooth) ?? You have been to the Emergency Room or were in the hospital ?? You have started taking any new medications ?? You have questions about a bowel prep or special diet before surgery UTER AIDED DESIGN DESIGNER documented in this encounter Plan of Treatment Not on file documented as of this encounter Procedures Procedure Name Priority Date/Time Associated Diagnosis Comments BLEPHAROPLASTY UPPER EYELID 02/26/2019 3:16 PM COMPUTER AIDED DESIGN DESIGNER Dermatochalasis of left upper eyelid Case Notes Case moved from 03/12/19 to 02/26/19 per Elisa via in-basket message. Case moved via lineup per Elisa. 02/25@0955 POCT GLUCOSE DEVICE Routine 02/26/2019 1 :37 PM COMPUTER AIDED DESIGN DESIGNER documented in this encounter Results * POCT glucose (02/26/2019 1:37 PM COMPUTER AIDED DESIGN DESIGNER) Glucose, POC 137 70 - 199 mg/dL [facility] Blood specimen (specimen) 02/26/2019 1:37 PM COMPUTER AIDED DESIGN DESIGNER 02/26/2019 1:37 PM COMPUTER AIDED DESIGN DESIGNER us Ernesto Crandall MD LAB POCT ORDERABLES - DEVICE Final Result [facility] Department [place] [address] documented in this encounter Visit Diagnoses Diagnosis Dermatochalasis of left upper eyelid- Primary Dermatochalasis of left upper eyelid documented in this encounter Admitting Diagnoses Diagnosis Dermatochalasis of left upper eyelid documented in this encounter Administered Medications Inactive Administered Medications - up to 3 most recent administrations Medication Order MAR Action Action Date Dose Rate Site acetaminophen (TYLENOL) tablet 1,000 mg 1,000 mg, oral, Once, On Mon02/26/19 at 1645, For 1 dose, Phase I, When able to tolerate PO., Indications: PainIndications:Pain Given 02/26/2019 4:18 PM COMPUTER AIDED DESIGN DESIGNER 1,000 mg Lactated Ringer's (LR) infusion 30 mL/hr, intravenous, Continuous, Starting on Mon02/26/19 at 1400, Pre-Op New Bag 02/26/2019 1:39 PM COMPUTER AIDED DESIGN DESIGNER 30 mL/hr 30 mL/hr sodium chloride 0.9% flush 0.5-20 mL 0.5-20 mL, intra-catheter, As needed, line care, Starting on Mon02/26/19 at 1329, Pre-Op, Flush volume based on line type and size. Flush before and after each use. documented in this encounter Discontinued Medications Medication Sig Discontinue Reason Start Date End Da te NOVOLOG FLEXPEN U-100 INSULIN 100 unit/mL (3 mL) insulin penIndications:type 2 diabetes mellitus Inject 10 Units under the skin 3 (three) times a day with meals Error 12/12/2018 02/25/2019 glyBURIDE (DIABETA) 5 mg tabletIndications:type 2 diabetes mellitus Take 10 mg by mouth 2 (two) times a day with meals Error 07/30/2018 02/25/2019 documented as of this encounter Historical Medications * This list may reflect changes made after this encounter. peg 400-propylene glycol (SYSTANE) 0.4-0.3 % ophthalmic solutionIndicati ons:Dry Eye Administer 1 drop into both eyes as needed 4 potassium 99 mg tabletIndication s:leg cramps Take 1 tablet (99 mg total) by mouth nightly 4 oxyCODONE-acetam inophen (PERCOCET) 10-325 mg per tablet Take 1 tablet by mouth as needed 01/08/2019 4 lidocaine (Lidoderm) 5 % Apply 1 patch topically as needed 4 cyanocobalamin (Vitamin B-12) 1,000 mcg/mL injection 1 mL every 30 (thirty) days 4 celecoxib (CeleBREX) 200 mg capsuleIndicatio ns:Osteoarthriti s Take 200 mg by mouth daily as needed for pain 4 liraglutide (VICTOZA) 0.6 mg/0.1 mL (18 mg/3 mL) injectionIndicat ions:type 2 diabetes mellitus Inject 1.6 mg under the skin every morning Indications: type 2 diabetes mellitus 4 added in this encounter Active and Recently Administered Medications Times are shown in COMPUTER AIDED DESIGN DESIGNER. Scheduled Medication Order 02/24/2019 02/25/2019 02/26/2019 acetaminophen (TYLENOL) tablet 1,000 mg (COMPLETED) 1,000 mg, oral, Once, On Mon02/26/19 at 1645, For 1 dose, Phase I, When able to tolerate PO., Indications: Pain 1618 (Given - Provid er: Lars Stewart RN) gabapentin (NEURONTIN) capsule 300 mg 300 mg, oral, Once, On Mon02/26/19 at 1645, For 1 dose, Phase I, When able to tolerate PO. , Indications: Pain 1645 (Due) Continuous Medication Order 02/24/2019 02/25/2019 02/26/2019 Lactated Ringer's (LR) infusion 30 mL/hr, intravenous, Continuous, Starting on Mon02/26/19 at 1400, Pre-Op 1339 (New Bag - Prov ider: Dominga Kent RN)1559 (Anesthesia Volume Adjustment - Provider: Chalo Lawler CRNA) Lactated Ringer's (LR) infusion 125 mL/hr, intravenous, Continuous, Starting on Mon02/26/19 at 1645, Phase I 1645 (Due) PRN Medication Order 02/24/2019 02/25/2019 02/26/2019 diphenhydrAMINE (BENADRYL) injection 12.5 mg 12.5 mg, intravenous, Every 15 min PRN, itching, Starting on Mon02/26/19 at 1608, For 2 doses, Phase I, Max cumulative dose 50 mg., Indications: Itching fentaNYL (SUBLIMAZE) preservative free injection 50 mcg 50 mcg, intravenous, Once as needed, uncontrolled pain on PACU admission, Starting on Mon02/26/19 at 1608, For 1 dose, Phase I, Then proceed to PACU 1st line analgesic., Indications: Pain fentaNYL (SUBLIMAZE) preservative free injection 50 mcg 50 mcg, intravenous, Once as needed, breakthrough pain, Starting on Mon02/26/19 at 1608, For 1 dose, Phase I, Administer for uncontrolled or increasing pain while in PACU only. Then proceed to PACU 1st line analgesic., Indications: Pain haloperidol (HALDOL) injection 1 mg 1 mg, intravenous, Administer over 5 Minutes, Once as needed, nausea, vomiting, Starting on Mon02/26/19 at 1608, For 1 dose, Phase I, If nausea/vomiting not relieved by ondansetron within 30 minutes or if ondansetron has been given within the last 6 hours. HYDROmorphone (DILAUDID) injection 0.2 mg 0.2 mg, intravenous, Administer over 2 Minutes, Every 10 min PRN, 1st line for pain, Starting on Mon02/26/19 at 1608, Phase I, Switch to 2nd line analgesic order if pain is uncontrolled or increasing after 2 doses. Notify Anesthesiologist if total PACU dose reaches 2 mg and pain score 5/10 or more., Indications: Pain HYDROmorphone (DILAUDID) injection 0.4 mg 0.4 mg, intravenous, Administer over 2 Minutes, Every 10 min PRN, 2nd line for pain, Starting on Mon02/26/19 at 1608, Phase I, May administer 10 mintes after 2nd dose of 1st line analgesic agent for uncontrolled or increasing pain. Revert to 1st line dose if POSS of 3. Notify Anesthesiologist if total PACU dose reaches 2 mg and pain score 5/10 or more., Indications: Pain lidocaine 1%, bupivicaine 0.375%, EPINEPHrine 0.3 mg (1:75,000) (Dr. Crandall's) preservative free ophthalmic solution (total volume 22.5 mL) (CANCELED) As needed, Starting on Mon02/26/19 at 1526, Intra-Op 1526 (Given - Provid er: Ernesto Crandall MD) naloxone (NARCAN) 0.4 mg/mL injection 0.04-0.4 mg 0.04-0.4 mg, intravenous, Once as needed, other, excessive sedation/respiratory depression, Starting on Mon02/26/19 at 1608, For 1 dose, Phase I, Dilute 0.4 mg with 9 mL NS (final concentration 0.04 mg/mL). For respiratory depression (respiratory rate less than 6), administer 0.4 mg IVP over 30 seconds. For excessive sedation administer 0.04 mg (1 mL) every 1 minute until desired level of alertness. For IV, administer over 30 seconds., Indications: Opioid Toxicity ondansetron (ZOFRAN) injection 4 mg 4 mg, intravenous, Administer over 2 Minutes, Once as needed, nausea, vomiting, Starting on Mon02/26/19 at 1608, For 1 dose, Phase I, Proceed to haloperidol if ondansetron has been given within the last 6 hours. oxyCODONE (ROXICODONE) tablet 5 mg 5 mg, oral, Once as needed, 1st line for pain, Starting on Mon02/26/19 at 1608, For 1 dose, Phase I, When able to tolerate PO. May repeat in 1 hour if pain is uncontrolled or increasing after 1st dose., Indications: Pain sodium chloride 0.9 % irrigation (CANCELED) As needed, Starting on Mon02/26/19 at 1526, Intra-Op 1526 (Given - Provid er: Ernesto Crandall MD) sodium chloride 0.9% flush 0.5-20 mL 0.5-20 mL, intra-catheter, As needed, line care, Starting on Mon02/26/19 at 1329, Pre-Op, Flush volume based on line type and size. Flush before and after each use. tetracaine (PF) (ALTACAINE) 0.5 % ophthalmic solution (CANCELED) As needed, Starting on Mon02/26/19 at 1526, Intra-Op, Indications: Administration of Corneal Anesthesia 1526 (Given - Provid er: Ernesto Crandall MD) documented in this encounter Orders Medications Ordered That Camilo ht Not Have Been Administered Count Last Ordered Date First Ordered Date diphenhydrAMINE (BENADRYL) i njection 12.5 mg 1 02/26/2019 fentaNYL (SUBLIMAZE) preserv ative free injection 50 mcg 2 02/26/2019 gabapentin (NEURONTIN) capsule 300 mg 1 08/2019 haloperidol (HALDOL) injection 1 mg 1 02/26 HYDROmorphone (DILAUDID) injection 0.2 mg 1 02/26/2019 HYDROmorphone (DILAUDID) injection 0.4 mg 1 02/26/2019 Lactated Ringer's (LR) infusion 1 0 lidocaine 1%, bupivicaine 0. 375%, EPINEPHrine 0.3 mg (1:75,000) (Dr. Crandall's) preservative free ophthalmic solution (total volume 22.5 mL) 1 02/26/2019 naloxone (NARCAN) 0.4 mg/mL injection 0.04-0.4 mg 1 02/26/2019 ondansetron (ZOFRAN) injection 4 mg 1 02/26 oxyCODONE (ROXICODONE) tablet 5 mg 1 2019 sodium chloride 0.9 % irrigation 1 02/26/19 20 sodium chloride 0.9% flush 0.5-20 mL 1 08/2019 tetracaine (PF) (ALTACAINE) 0.5 % ophthalmic solution 1 02/26/2019 documented in this encounter Care Teams Forestry Fire Aide Relationship Specialty Start Date End Date Laura Grider MD PCP - General 03/19/13 08/17/23 documented as of this encounter
--- OUTSIDE RECORDS SUMMARY | 2024-03-08 00:44 | XMS_ITS | Encounter Summary ---
Author Organization [facility] Address [address] [place] [address] Care Team Providers Care Tripoler Name Role Phone Laura Grider MD Primary Care Provider + Cammie Woodruff OD Unavailable Encounter Details Date Type Department Care Team (Late st Contact Info) Description 06/08/2023 Orders Only [facility] Cardiology [address] [facility] [address] [id number] Malachi Aviles MD [address] [facility] [address] [place] [address] Social History Tobacco Use Types Packs/Day Years Used Date Smoking Tobacco: Former Cigarettes 1 39 1 971 - 2010 Smokeless Tobacco: Never Alcohol Use Standard Drinks/Week Comments No 0 (1 standard drink = 0.6 oz pur e alcohol) Comments Unknown Sex and Gender Information Value Date Recorded Sex Assigned at Not on file Legal Sex Female 3:03 AM RN RELIEF CHARGE Gender Identity Not on file Sexual Orientation Not on file documented as of this encounter Plan of Treatment Not on file documented as of this encounter Procedures Procedure Name Priority Date/Time Associated Diagnosis Comments CARDIOLOGY DOCUMENT SCAN Routine 024 10:55 AM CDT documented in this encounter Results * Cardiology Document Scan (06/02/2023 10:55 AM CDT) Anatomical Region Laterality Modality Other us Malachi Aviles MD CV CARDIAC SERVICES PROC EDURES Final Result documented in this encounter Visit Diagnoses Not on filedocumented in this encounter Care Teams Tripoler Relationship Specialty Start Date End Date Laura Grider MD PCP - General 03/19/13 08/17/23 Cammie Woodruff OD [address] [place] [address] Optometry 03/13/19 documented as of this encounter
--- OUTSIDE RECORDS SUMMARY | 2024-03-08 00:44 | XMS_ITS | Encounter Summary ---
Author Organization [facility] Address [address] [address] Care Team Providers Care Data Review Specialist Name Role Phone Laura Grider MD Primary Care Provider + Cammie Woodruff OD Unavailable [phone] Reason for Visit * Reason Comments Cough Pt primary care did urine test and said she had bladder infection. Was prescribed macrobid and steroids.Pt states went to doctor for fatigue, body aches, cold and hot, hard to breathe, sharp pain between shoulder blades.Pt states they have had no uti symptomsPt is diabetic, normal A1cS/s started about 2 weeks ago Encounter Details Date Type Department Care Team (Late st Contact Info) Description 10/26/2022 10:45 AM CDT Office Visit [facility] Outpatient Center [address] [address] Nicolle Sawyer NP [address] [place], [place] [id number] Lower respiratory infection (e.g., bronchitis, pneumonia, pneumonitis, pulmonitis) (Primary Dx); Acute viral syndrome; Fatigue, unspecified type Social History Tobacco Use Types Packs/Day Years Used Date Smoking Tobacco: Former Cigarettes 1 39 1 971 - 2009 Smokeless Tobacco: Never Alcohol Use Standard Drinks/Week Comments No 0 (1 standard drink = 0.6 oz pur e alcohol) Comments Unknown Sex and Gender Information Value Date Recorded Sex Assigned at Not on file Legal Sex Female 3:03 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 Gender Identity Not on file Sexual Orientation Not on file documented as of this encounter Last Filed Vital Signs Vital Sign Reading Time Taken Comments Blood Pressure 132/86 10/26/2022 10:49 AM CDT Pulse 92 10/26/2022 10:49 AM CDT Temperature 37.3 ??C (99.2 ??F) 10/26/2022 1 0:49 AM CDT Respiratory Rate - - Oxygen Saturation 95% 10/26/2022 10: 49 AM CDT Inhaled Oxygen Concentration - - Weight 84.2 kg (185 lb 11.2 oz) 023 10:49 AM CDT Height 170.2 cm (5' 7 ) 10/26/2022 10:4 9 AM CDT Body Mass Index 29.08 10/26/2022 10:49 AM CDT documented in this encounter Patient Instructions * Patient Instructions* Nicolle Sawyer, CTE TEACHER - 10/26/2022 10:45 AM CDT Call and schedule follow up with Primary doctor in 2-3 days, ER if symptoms worsen I will call you with xray results. Azithromycin for lower respiratory infection Avoid irritants such as cigarette smoke, pollen, dust, etc as this will aggravate cough. Suck on cough drops or hard candies to soothe a dry or sore throat. Cough drops won't stop your cough, but they may make your throat feel better. Over the counter loratadine (Claritin) or cetirizine (Zyrtec) to reduce secretions. Mucinex to thin secretions Breathe moist air from a humidifier, a hot shower, or a sink filled with hot water. The heat and moisture can help keep mucus in your airways moist so you can cough it out easily. Use nonprescription medicine, such as acetaminophen, ibuprofen, or aspirin, to relieve fever and body aches. Don't give aspirin to anyone younger than age 20. Rest more than usual. Drink plenty of fluids so that you do not become dehydrated and to keep mucous thin. Use an tsex-ozn-vivabjy cough medicine such as Delsym or Robitussin. (Cough medicines may not be safe for young children or for people who have certain health problems.) Cough suppressants may help you to stop coughing. Expectorants, such as Mucinex, can help you bring up mucus when you cough. Follow up with primary care physician in 1 week, or sooner if symptoms worsen. GO TO ER WITH ANY WORSENING OF SYMPTOMS INCLUDING, BUT NOT LIMITED TO: SUDDEN HIGH FEVER, DIFFICULTY BREATHING OR CATCHING YOUR BREATH, OR SHORTNESS OF BREATH. * Attachments The following attachments cannot be sent through Care Everywhere. * Fatigue (Armed Custom Protection Officer) ([place]) documented in this encounter Ordered Prescriptions Prescription Sig Dispense Quantity Refills Last Filled Start Date End Date azithromycin (ZITHROMAX) 250 mg tabletIndications: Lower respiratory infection (e.g., bronchitis, pneumonia, pneumonitis, pulmonitis) Take 2 tablets the first day, then 1 tablet daily for 4 days. 6 tablet 10/26/2022 4 documented in this encounter Progress Notes * Nicolle Sawyer NP - 10/26/2022 10:45 AM CDT Images from the original note were not included. Subjective/Objective Patient ID: Yaneth Duarte is a 66 y.o. female. Chief Complaint Cough (Pt primary care did urine test and said she had bladder infection. Was prescribed macrobid and steroids./Pt states went to doctor for fatigue, body aches, cold and hot, hard to breathe, sharp pain between shoulder blades./Pt states they have had no uti symptoms/Pt is diabetic, normal A1c/S/sstarted about 2 weeks ago) Patient presents to the clinic with reports of fatigue, body aches, hot flashes, difficulty breathing with exertion and laying flat, and pain between shoulder blades for 2 weeks. Denies chest pain, rash, vomiting, difficulty swallowing, burning with urination, flank pain, and abdominal pain. She has taken no OTC medications for her symptoms. Patient reports that she saw her PCP and they started her on steroids and Macrobid which she has completed. Reports that she has had 3 negative covid tests. Review of Systems Constitutional: Positive for chills and fever. Negative for fatigue. HENT: Negative for congestion, ear pain, postnasal drip, rhinorrhea and sore throat. Respiratory: Positive for cough and shortness of breath (with exertion and laying flat). Negative for chest tightness and wheezing. Cardiovascular: Negative. Negative for chest pain. Gastrointestinal: Negative for abdominal pain, diarrhea, nausea and vomiting. Genitourinary: Negative for difficulty urinating, dysuria, flank pain, frequency, hematuria, pelvicpain, urgency, vaginal bleeding and vaginal discharge. Musculoskeletal: Positive for back pain (between shoulder blades) and myalgias. Neurological: Negative for headaches. Physical Exam Vitals reviewed. Constitutional: General: She is not in acute distress. Appearance: Normal appearance. She is well-developed. She is not ill-appearing. HENT: Head: Normocephalic. Right Ear: Tympanic membrane, ear canal and external ear normal. Tympanic membrane is not injected,erythematous or bulging. Left Ear: Tympanic membrane, ear canal and external ear normal. Tympanic membrane is not injected, erythematous or bulging. Nose: Congestion present. No rhinorrhea. Right Sinus: No maxillary sinus tenderness or frontal sinus tenderness. Left Sinus: No maxillary sinus tenderness or frontal sinus tenderness. Mouth/Throat: Lips: [place]. Mouth: Mucous membranes are moist. Pharynx: Uvula midline. No pharyngeal swelling, oropharyngeal exudate or posterior oropharyngeal erythema. Cardiovascular: Rate and Rhythm: Regular rhythm. Tachycardia present. Pulmonary: Effort: Pulmonary effort is normal. No respiratory distress. Breath sounds: Decreased breath sounds present. No wheezing or rhonchi. Abdominal: General: Bowel sounds are normal. There is no distension. Palpations: Abdomen is soft. Tenderness: There is no abdominal tenderness. There is no right CVA tenderness, left CVA tendernessor guarding. Lymphadenopathy: Cervical: No cervical adenopathy. Skin: General: Skin is warm and dry. Neurological: Mental Status: She is alert and oriented to person, place, and time. Psychiatric: Behavior: Behavior is cooperative. Vitals: 10/26/22 1049 BP: 132/86 BP Location: Right arm Patient Position: Sitting Pulse: 92 Temp: 37.3 ??C (99.2 ??F) TempSrc: Oral SpO2: 95% Weight: 84.2 kg (185 lb 11.2 oz) Height: 170.2 cm (5' 7 ) Assessment/Plan # acute lower lung infection --CXR pending --likely bacterial given symptoms, duration of illness, and assessment. --exam findings warrant antibiotics. Started azithromycin --recommended to continue cold/sinus medications and sinus rinse. --COVID/FLU swab pending PCR --ED presentation with one or more of the following symptoms: fever uncontrolled with antipyretics,shortness of breath, chest discomfort, uncontrolled n/v/d --f/u with PCP in 5-7 days if symptoms do not improve/worsen Diagnoses and all orders for this visit: Lower respiratory infection (e.g., bronchitis, pneumonia, pneumonitis, pulmonitis) (Primary) - XR Chest PA Lateral 2 Views; Future - azithromycin (ZITHROMAX) 250 mg tablet; Take 2 tablets the first day, then 1 tablet daily for 4 days. - Influenza A/B, RSV, and COVID-19 PCR Nasopharyngeal; Future Acute viral syndrome Fatigue, unspecified type XRAY IMPRESSION: No acute cardiopulmonary findings. Pulmonary emphysema with probable right upper lobe bulla. Linear opacities in both lung suggestive of scarring Patient Education: Call and schedule follow up with Primary doctor in 2-3 days, ER if symptoms worsen I will call you with xray results. Azithromycin for lower respiratory infection Avoid irritants such as cigarette smoke, pollen, dust, etc as this will aggravate cough. Suck on cough drops or hard candies to soothe a dry or sore throat. Cough drops won't stop your cough, but they may make your throat feel better. Over the counter loratadine (Claritin) or cetirizine (Zyrtec) to reduce secretions. Mucinex to thin secretions Breathe moist air from a humidifier, a hot shower, or a sink filled with hot water. The heat and moisture can help keep mucus in your airways moist so you can cough it out easily. Use nonprescription medicine, such as acetaminophen, ibuprofen, or aspirin, to relieve fever and body aches. Don't give aspirin to anyone younger than age 20. Rest more than usual. Drink plenty of fluids so that you do not become dehydrated and to keep mucous thin. Use an szms-dxx-vyfrtkm cough medicine such as Delsym or Robitussin. (Cough medicines may not be safe for young children or for people who have certain health problems.) Cough suppressants may help you to stop coughing. Expectorants, such as Mucinex, can help you bring up mucus when you cough. Follow up with primary care physician in 1 week, or sooner if symptoms worsen. GO TO ER WITH ANY WORSENING OF SYMPTOMS INCLUDING, BUT NOT LIMITED TO: SUDDEN HIGH FEVER, DIFFICULTY BREATHING OR CATCHING YOUR BREATH, OR SHORTNESS OF BREATH. Disposition Treatment plan including expectations, follow up, and return precautions discussed with patient/parent, verbalizes understanding. Medication dosage, use, and potential adverse reactions discussed with patient/parent. Advised to follow up with PCP if symptoms do not resolve as expected or sooner if condition worsens. Signs/symptoms warranting ER evaluation reviewed. Patient and/or guardian was given an opportunity to ask questions, questions answered. Nicolle Sawyer NP 10/26/22 11:36 AM Cosigned by Flaco Brooks MD at 10/26/2022 2:40 PM CDT documented in this encounter Plan of Treatment Not on file documented as of this encounter Results * Influenza A/B, RSV, and COVID-19 PCR Nasopharyngeal (10/26/2022 11:34 AM CDT) [facility] COVID-19 RNA Negative Negative [facility] Influenza A RNA Negative Negative [facility] Influenza B RNA Negative Negative [facility] RSV RNA Negative Negative [facility] Comment: Interpretive data: This test is performed using the [employer] Xpert Xpress CoV-2/Flu/RSV plus assay. This is [...] CDT 10/26/2022 2:26 PM CDT Narrative [facility] - 10/26/2022 3:19 PM CDT Is the Patient experiencing symptoms consistent with COVID?->Yes Date of Symptom Onset->10/12/22 Reason for testing?->Symptomatic us Nicolle Sawyer NP LAB MICROBIOLOGY - GENERAL ORD ERABLES Final Result [facility] [id number] [place] [address] * XR Chest PA Lateral 2 Views (10/26/2022 11:12 AM CDT) Anatomical Region Laterality Modality Body, Chest N/A Digital Radiogra phy 10/26/2022 1:09 PM CDT Narrative 10/26/2022 1:12 PM CDT EXAM DESCRIPTION: XR CHEST PA LATERAL 2 VIEWS REASON FOR STUDY: pain ?? Pt complains of sob, weakness, chills, and sharp upper back pain for two weeks. History of smoking for 30 years, 1 PPD; pt states she just vapes now since around 2006. No surgery to heart, lungs, or chest. ? TECHNIQUE: 2 ??radiographic view(s) of the chest. COMPARISON: None available FINDINGS: LUNGS: ??There is pulmonary emphysema with a probable bulla in the right upper lobe.. ??There is no focal consolidation. ??There are areas of linear opacity bilaterally suggestive of scarring. ??No pleural effusion or pneumothorax ?? HEART/MEDIASTINUM: ??Heart size and mediastinal contours are normal LINES/TUBES: ??None. BONES: ??No acute osseous abnormality. IMPRESSION: No acute cardiopulmonary findings. Pulmonary emphysema with probable right upper lobe bulla. Linear opacities in both lung suggestive of scarring. THIS IS AN ELECTRONICALLY VERIFIED FINAL REPORT 10/26/2022 1:12 PM - Electronically signed by ??Ned HADDAD D: ??10/26/2022 1:12 PM T: Report ID: [id number] Reading Location: ??[id number] Procedure Note Ned Asher MD - 10/26/2022 EXAM DESCRIPTION: XR CHEST PA LATERAL 2 VIEWS REASON FOR STUDY: pain Pt complains of sob, weakness, chills, and sharp upper back pain for two weeks. History of smoking for 30 years, 1 PPD; pt states she just vapesnow since around 2006. No surgery to heart, lungs, or chest. TECHNIQUE: 2 radiographic view(s) of the chest. COMPARISON: None available FINDINGS: LUNGS: There is pulmonary emphysema with a probable bulla inthe right upper lobe.. There is no focal consolidation. There are areas of linear opacity bilaterally suggestive of scarring. No pleural effusion or pneumothorax HEART/MEDIASTINUM: Heart size and mediastinal contours are normal LINES/TUBES: None. BONES: No acute osseous abnormality. IMPRESSION: No acute cardiopulmonary findings. Pulmonary emphysema with probable right upper lobe bulla. Linear opacities in both lung suggestive of scarring. THIS IS AN ELECTRONICALLY VERIFIED FINAL REPORT 10/26/2022 1:12 PM - Electronically signed by Ned Asher M.D. MZ T: Report ID: [id number] Reading Location: [place] [address] Nicolle Sawyer CTE TEACHER IMG XR PROCEDURES Final Result documented in this encounter Visit Diagnoses Diagnosis Lower respiratory infection (e.g., bronchitis, pneumonia, pneumonitis, pulmonitis)- Primary Acute viral syndrome Fatigue, unspecified type Acute cough Lower respiratory infection (e.g., bronchitis, pneumonia, pneumonitis, pulmonitis) documented in this encounter Historical Medications * This list may reflect changes made after this encounter. Medication Sig Dispense Quantity Refills Last Filled Start D ate End Date Ozempic 2 mg/dose (8 mg/3 mL) pen injector injection 07/23/2022 mesalamine (LIALDA) 1.2 gram EC tablet 10/04/2022 desvenlafaxine ER (PRISTIQ) 100 mg 24 hr tablet 10/03/2022 Farxiga 10 mg tablet 10/25/2022 predniSONE (DELTASONE) 20 mg tablet 10/18/2022 08/18/[address] (PROTONIX) 40 mg EC tablet 07/27/2022 08/18/2023 nitrofurantoin monohydrate (MACROBID) 100 mg capsule 10/19/2022 08/18/2023 cephalexin (KEFLEX) 500 mg capsule 07/19/2022 08/04/2023 added in this encounter Additional Health Concerns Infection Onset Date Last Indicated Resolved Time COVID: Suspected 10/26/2022 10/26/2022 10/26/2022 3:21 PM CDT documented as of this encounter Care Teams Data Review Specialist Relationship Specialty Start Date End Date Laura Grider MD PCP - General 03/19/13 08/17/23 Cammie Woodruff OD [address] [place] [address] Optometry 03/13/19 documented as of this encounter
--- OUTSIDE RECORDS SUMMARY | 2024-03-08 00:44 | XMS_ITS | Encounter Summary ---
Author Organization [facility] Address [address] [place] [address] Phone Care Team Providers Care Protection Chief Industrial Plant Name Role Phone Laura Grider MD Primary Care Provider + Encounter Details Date Type Department Care Team (Late st Contact Info) Description 09/11/2018 Documentation [facility] Ophthalmology [facility] [address] [place] [address] Elisa Kaur B.A. 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 - 09/11/2018 3:08 PM CDT Called on [employer] PA is required for code 85666 / out jackie/ Tristan Serrano clinicals to [phone] Pending auth number [id number] documented in this encounter Plan of Treatment Not on file documented as of this encounter Visit Diagnoses Not on filedocumented in this encounter Care Teams Protection Chief Industrial Plant Relationship Specialty Start Date End Date Laura Grider MD PCP - General 03/19/13 08/17/23 documented as of this encounter
--- OUTSIDE RECORDS SUMMARY | 2024-03-08 00:44 | XMS_ITS | Encounter Summary ---
Author Organization [facility] Address [address] [place] [address] Phone Care Team Providers Care Inbound Ingredient Logistics Specialist Name Role Phone Laura Grider MD Primary Care Provider + Encounter Details Date Type Department Care Team (Late st Contact Info) Description 09/24/2018 Documentation [facility] Ophthalmology [facility] [address] [place] [address] Elisa Kaur B.A. 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 - 09/24/2018 3:20 PM CDT LEFT PATIENT A VM INFORMING HER WE HAVE APPROVAL FROM [employer] TO MOVE FORWARD WITH SURGERY ..OFFERED HER 8-12 OR 8-19 TOLD HER TO CALL ME BACK TO CONFIRM DATE. documented in this encounter Plan of Treatment Not on file documented as of this encounter Visit Diagnoses Not on filedocumented in this encounter Care Teams Inbound Ingredient Logistics Specialist Relationship Specialty Start Date End Date Laura Grider MD PCP - General 03/19/13 08/17/23 documented as of this encounter
--- OUTSIDE RECORDS SUMMARY | 2024-03-08 00:44 | XMS_ITS | Encounter Summary ---
Author Organization [facility] Healthcare Address [address] [place] [address] Care Team Providers Care Goldbeater Name Role Phone Laura Grider MD Primary Care Provider + Cammie Woodruff OD Unavailable [phone] Reason for Referral * Procedure (Routine) - Authorized Specialty Diagnoses / Procedures Referred By Contac t Referred To Contact Diagnoses Rotator cuff tendonitis, right Procedures Large Joint (Hip, Knee, Shoulder) Injection: [place] [address] [place] [address] Phone: tel: fax: [facility] Medical Group Referral ID Status Reason Start Date Expiration Date V isits Requested Visits Authorized [id number] Authorized 05/11/2023 06/09/2024 1 1 * Physical Therapy (Routine) - Closed Specialty Diagnoses / Procedures Referred By Contac t Referred To Contact Physical Therapy Diagnoses Calcific tendinitis of right shoulder Primary osteoarthritis [place] [address] [place] [address] Phone: tel: fax: [facility] [address] [address] Phone: tel: fax: Referral ID Status Reason Start Date Expiration Date V isits Requested Visits Authorized [id number] Closed Evaluate and Treat 05/08/2023 02/20/2024 12 99 Question Answer PTRFR PT Evaluate and Treat Therapy options discussed with patient? Yes Location provided for therapy services is: Patient requested/Patient preferred Please select the performing region: [facility] [[id number]] Please select the performing department: [facility] [[id number]] # of visits: 12 Reason for Visit * Reason Comments Pain Encounter Details Date Type Department Care Team (Latest Contact Info) Description 05/08/2023 2:00 PM CDT Office Visit [facility] Medical Group Orthopedics and Sports Medicine at [address] [phone] Khalif Espitia MD [address] [place], [place] [id number] Rotator cuff tendonitis, right (Primary Dx); Primary osteoarthritis of right shoulder Social History Tobacco Use Types Packs/Day Years Used Date Smoking Tobacco: Former Cigarettes 1 39 1 971 - 2010 Smokeless Tobacco: Never Alcohol Use Standard Drinks/Week Comments No 0 (1 standard drink = 0.6 oz pur e alcohol) Comments Unknown Sex and Gender Information Value Date Recorded Sex Assigned at Not on file Legal Sex Female 3:03 AM 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 Gender Identity Not on file Sexual Orientation Not on file documented as of this encounter Last Filed Vital Signs Vital Sign Reading Time Taken Comments Blood Pressure 142/88 05/08/2023 2:19 PM CDT Pulse - - Temperature - - Respiratory Rate - - Oxygen Saturation - - Inhaled Oxygen Concentration - - Weight 81.6 kg (180 lb) 05/08/2023 2:19 PM CDT Height 170.2 cm (5' 7 ) 05/08/2023 2:19 PM CDT Body Mass Index 28.19 05/08/2023 2:19 PM CDT documented in this encounter Progress Notes * Khalif Espitia MD - 05/08/2023 2:00 PM CDTAssociated Order(s): Large Joint (Hip, Knee, Shoulder) Injection: R subacromial bursa Post-Procedure Diagnose(s): Rotator cuff tendonitis, right Images from the original note were not included. NEW PATIENT VISIT Subjective CHIEF COMPLAINT She had concerns including Pain of the Right Shoulder. HISTORY OF PRESENT ILLINESS 67 year old F pmh sx for CHINO, anxiety, depression, DM presents for evaluation of her right shoulder. Acute on chronic right shoulder pain for approximately 1 year. No real treatment. OTC analgesics with activity modification with minimal relief. Pain with overhead activity, improved with rest. Paininto elbow. Denies neck pain, numbness, tingling, denies fever or chills. Pain Assessment Pain Assessment: 0-10 Pain Score: 6 Pain Location: Shoulder Pain Orientation: Right Pain Descriptors: Aching, Throbbing, Discomfort, Sore Pain Frequency: Constant/continuous Pain Onset: Ongoing Date Pain First Started: (1 1/2 year) Result of Injury: No Work-Related Injury: No PAST MEDICAL HISTORY She has a past medical history of Anxiety disorder, Depression, Diabetes mellitus (HCC), Heart murmur, OTHER MEDICAL, and Obstructive sleep apnea syndrome (10/06/2021). She has no past medical history of Acute respiratory failure requiring reintubation (CMS/HCC) (HCC), Awareness under anesthesia, Delayed emergence from general anesthesia, Hard to intubate, Malignanthyperthermia, PONV (postoperative nausea and vomiting), Postoperative delirium, or Pseudocholinesterase deficiency. PAST SURGICAL HISTORY She has a past surgical history that includes Hysterectomy (1988); Knee Arthroplasty (Left, 2007); Knee Arthroplasty (Right, 2009); Abdominoplasty (1990); Blepharoplasty (Bilateral, 1999); Colonoscopy (2016); Cataract Extraction (Bilateral, 11/2018); and Eye surgery. MEDICATIONS She has a current medication list which includes the following prescription(s): alprazolam, aripiprazole, atorvastatin, azithromycin, basaglar, cephalexin, desvenlafaxine er, dextroamphetamine-amphetamine, farxiga, liraglutide, mesalamine, metoprolol xl, oxygen, ozempic, pantoprazole dr, peg 400-propylene glycol, potassium, celecoxib, cyanocobalamin, desvenlafaxine, erythromycin, lidocaine, meloxicam, nitrofurantoin monohydrate, oxycodone-acetaminophen, and prednisone. ALLERGIES She is allergic to triamcinolone and codeine. SOCIAL HISTORY She reports that she quit smoking about 14 years ago. Her smoking use included cigarettes. She started smoking about 53 years ago. She has a 39 pack-year smoking history. She has never used smokelesstobacco. She reports that she does not currently use drugs after having used the following drugs: Marijuana. No alcohol history on file. FAMILY HISTORY Family History Problem Relation Age of Onset Other Other Family history of Cancer, kidney; Osteoarthritis Other Family history of Osteoarthritis; Osteoporosis Other Family history of Osteoporosis; Crohn's disease Daughter Family history of Crohn's disease - (Added by TW Conv) Anesthesia problems Neg Hx REVIEW OF SYSTEMS Review of Systems Constitutional: Negative for chills and fever. HENT: Negative for hearing loss. Eyes: Negative for visual disturbance. Respiratory: Negative for cough and shortness of breath. Cardiovascular: Negative for chest pain and palpitations. Gastrointestinal: Negative for constipation, diarrhea, nausea and vomiting. Endocrine: Negative for cold intolerance, heat intolerance, polydipsia and polyuria. Genitourinary: Negative for difficulty urinating, dysuria and urgency. Musculoskeletal: Positive for arthralgias and myalgias. Negative for back pain and neck pain. Neurological: Negative for seizures and weakness. Hematological: Does not bruise/bleed easily. Psychiatric/Behavioral: Negative for dysphoric mood. The patient is not nervous/anxious. Objective PHYSICAL EXAM BP 142/88 Ht 170.2 cm (5' 7 ) Wt 81.6 kg (180 lb) BMI 28.19 kg/m?? Ortho Exam NAD, alert and oriented, nonlabored breathing, no pain with neck ROM, focused exam of right upper extremity demonstrates no open sores or lesions, non-tender clavicle or AC joint, non-tender bicipital groove, ROM 150/150/30/thoracic, 4/5 strength scapular plane 5/5 ER strength at 90 and at side, belly press negative, +neer???s/hawkin???s, - speed???s/yergason???s/torres???s, - cross body adduction, nl scapulothoracic motion, no obv instability, distally intact radial, axillary, median, ulnar nerves, fingers warm and well-perfused REVIEW OF X-RAYS/STUDIES/LABS XR Shoulder Right 4 Views XR 4 views right shoulder including AP, Grashey, Scapular Y and Axillary lateral demonstrate high riding humeral head with bony change at GT, no acute fracture or dislocation Assessment/Plan Yaneth was seen today for pain. Diagnoses and all orders for this visit: Rotator cuff tendonitis, right - XR Shoulder Right 4 Views - Ambulatory referral order to Physical Therapy -; Future Primary osteoarthritis of right shoulder - Ambulatory referral order to Physical Therapy -; Future Other orders - Large Joint (Hip, Knee, Shoulder) Injection Large Joint (Hip, Knee, Shoulder) Injection: R subacromial bursa Performed by: Khalif Espitia MD Authorized by: Khalif Espitia MD Large Joint Injection/Aspiration: Consent Given by: Patient Site marked: the procedure site was marked Verbal consent obtained: Yes Supporting Documentation: Indications: Pain Procedure Details: Location: Shoulder Site: R subacromial bursa Prep: patient was prepped and draped in usual sterile fashion Needle Size: 22 G Approach: Posterior Medications: 3 mL BUPivacaine HCl 0.25 % (2.5 mg/mL); 40 mg methylPREDNISolone acetate 40 mg/mL; 30mg ketorolac 30 mg/mL (1 mL) Patient tolerance: Patient tolerated the procedure well with no immediate complications Plan 67 year old F with likely acute on chronic rotator cuff degeneration with tendonitis and mid GH arthritis -We discussed the diagnosis and reviewed images in office with the patient. We discussed ice/Tylenol/NSAID use/activity modification/PT/bracing and corticosteroid injections. Patient elected to proceed with corticosteroid injection in clinic, OTC NSAIDs, referral to therapy. Follow-up in 3 months. All questions answered and patient agreeable with the plan. Khlaif Espitia MD documented in this encounter Plan of Treatment Scheduled Referrals Name Type Priority Associated Diagnoses Orde r Schedule Ambulatory referral order to Physical Therapy - Outpatient Referral Routine Rotator cuff tendonitis, right Primary osteoarthritis of right shoulder Expected: 05/22/2023 (Approximate), Expires: 05/07/2024 documented as of this encounter Procedures Procedure Name Priority Date/Time Associated Diagnosis Comments XR SHOULDER RIGHT 2 OR MORE VIEWS Schedule Routine, Read Routine (OP Routine) 05/11/2023 8:13 PM CDT Rotator cuff tendonitis, right [place] ARTHROCENTESIS ASPIR&/INJ MAJOR JT/BURSA W/O US Routine 05/08/2023 2:00 PM CDT Rotator cuff tendonitis, right documented [...] MD IMG XR PROCEDURES Final Resul t * [place] ARTHROCENTESIS ASPIR&/INJ MAJOR JT/BURSA W/O US (05/08/2023 2:00 PM CDT) Narrative Khalif Espitia MD - 05/08/2023 2:00 PM CDT Khalif Espitia MD ? 05/11/2023 ??8:20 PM Large Joint (Hip, Knee, Shoulder) Injection: R subacromial bursa Performed by: Khalif Espitia MD Authorized by: Khalif Espitia MD ?? Large Joint Injection/Aspiration: ??Consent Given by: ??Patient ??Site marked: the procedure site was marked ?Verbal consent obtained: Yes ?? Supporting Documentation: ??Indications: ??Pain Procedure Details: ??Location: ??Shoulder ??Site: ??R subacromial bursa ??Prep: patient was prepped and draped in usual sterile fashion ?Needle Size: ??22 G ??Approach: ??Posterior ??Medications: ??3 mL BUPivacaine HCl 0.25 % (2.5 mg/mL); 40 mg methylPREDNISolone acetate 40 mg/mL; 30 mg ketorolac 30 mg/mL (1 mL) ??Patient tolerance: ??Patient tolerated the procedure well with no immediate complications us Khalif Espitia MD IN CLINIC/BEDSIDE ORDERABLES Final Result documented in this encounter Visit Diagnoses Diagnosis Rotator cuff tendonitis, right- Primary Primary osteoarthritis of right shoulder documented in this encounter Administered Medications Inactive Administered Medications - up to 3 most recent administrations Medication Order MAR Action Action Date Dose Rate Site BUPivacaine HCl (MARCAINE) 0.25 % (2.5 mg/mL) injection 3 mL 3 mL, other, One-Time Injection, Starting on Mon05/08/23 at 1400, For 1 doseIndications:Rotator cuff tendonitis, right Given 05/08/2023 2:00 PM CDT 3 mL Right Shoulder ketorolac (TORADOL) 30 mg/mL (1 mL) injection 30 mg 30 mg, One-Time Injection, Starting on Mon05/08/23 at 1400, For 1 doseIndications:Rotator cuff tendonitis, right Given 05/08/2023 2:00 PM CDT 30 mg Right Shoulder methylPREDNISolone acetate (DEPO-medrol) injection 40 mg 40 mg, intra-articular, One-Time Injection, Starting on Mon05/08/23 at 1400, For 1 doseIndications:Rotator cuff tendonitis, right Given 05/08/2023 2:00 PM CDT 40 mg Right Shoulder documented in this encounter Care Teams Goldbeater Relationship Specialty Start Date End Date Laura Grider MD PCP - General 03/19/13 08/17/23 Cammie Woodruff OD [address] [place] [address] Optometry 03/13/19 documented as of this encounter
--- OUTSIDE RECORDS SUMMARY | 2024-03-08 00:44 | XMS_ITS | Encounter Summary ---
Author Organization [facility] Address [address] [place] [address] Phone Care Team Providers Care Recovery Engineer Name Role Phone Laura Grider MD Primary Care Provider + Cammie Woodruff OD Unavailable [phone] Encounter Details Date Type Department Care Team (Late st Contact Info) Description 04/30/2019 Documentation [facility] Ophthalmology [address] [facility] Medical Office [address] [place] [address] Swathi Figueroa B.A. 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 - 04/30/2019 1:23 PM CDT Only need to refill if she develops increasing symptoms per dr lambert documented in this encounter Plan of Treatment Not on file documented as of this encounter Visit Diagnoses Not on filedocumented in this encounter Care Teams Recovery Engineer Relationship Specialty Start Date End Date Laura Grider MD PCP - General 03/19/13 08/17/23 Cammie Woodruff OD [address] [place] [address] Optometry 03/13/19 documented as of this encounter
--- OUTSIDE RECORDS SUMMARY | 2024-03-08 00:44 | XMS_ITS | Encounter Summary ---
Author Organization [facility] Healthcare Address [address] [place] [address] Care Team Providers Care Plumbing Contractor Name Role Phone Laura Grider MD Primary Care Provider + Encounter Details Date Type Department Care Team (Late st Contact Info) Description 02/26/2019 3:16 PM CONSTRUCTION EQUIPMENT OVERHAULER Anesthesia Event [facility] Operating Room [facility] ([facility]) [address] [place] [address] Claus Peralta MD [address] [place] [address] Irma Espino NP [address] [facility] [phone] [place] [address] Anesthesia Record Procedure Summary Procedure Name Responsible Anesthesiologist Anesthesia Start Time Anesthesia Stop Time LEFT UPPER EYELID (Left: Eye) Claus Peralta MD 02/26/19 1516 02/26/19 1609 Events Date Time Event Comment 02/26/2019 1516 An Start 1516 An Start Data 1516 In Room 1522 Start Supplemental O2 1523 Proc Start 1524 Incision Start 1529 An Induction The patient was reevaluated immediately before moderate or deep sedation use and before anesthesia induction. 1530 Anesthesia Ready 1600 Proc Fin 1603 an stop data 1604 Out of Room 1609 Handoff to RN I completed my handoff to the receiving nurse during which we: 1. Patient identified 2. Responsible provider identified 3. Pertinent medical history reviewed 4. Procedure type and surgical course discussed 5. Intraoperative anesthetic management and any significant issues discussed 6. Expectations and concerns for postop period discussed 7. Questions solicited from receiving nurse 8. Patient disposition at the time of handoff: PACU,phase II 1609 An Stop Meds Name Total midazolam PF 1 mg fentaNYL 25 mcg lidocaine 1 % PF 60 mg propofol 50 mg Lactated Ringer's (LR) infusion 300 mL * Agents Name O2% N2O O2 * Blood No blood administrations on file. Lines, Drains, and Airways Type Details Placement Removal Peripheral IV Placement Date: 02/26/19; Placement Time: 1340; Catheter Size: 20 G; Orientation: Left; Location: Hand; Inserted by: nohemy collier; Insertion Attempts: 1; Removal Date: 02/26/19; Removal Time: 16402/26/19 1340 by Dominga Kent RN 02/26/19 1644 by Lars Stewart, REJI RETIRED Surgical Site 02/26/19; 1527; Le ft; Eye; 01/23/24 (Retired LDA, Removed/Completed by [employer] with LDA Utility); 1213 (Retired LDA, Removed/Completed by [employer] with LDA Utility) 02/26/19 1527 by Nader Cadet, REJI 01/23/24 1213 by Discharge Provider, Automatic documented in this encounter Social History Tobacco Use Types Packs/Day Years Used Date Smoking Tobacco: Former Cigarettes 1 39 1 971 - 2010 Smokeless Tobacco: Never Alcohol Use Standard Drinks/Week Comments No 0 (1 standard drink = 0.6 oz pur e alcohol) Comments Unknown Sex and Gender Information Value Date Recorded Sex Assigned at Not on file Legal Sex Female 3:03 AM CONSTRUCTION EQUIPMENT OVERHAULER Gender Identity Not on file Sexual Orientation Not on file documented as of this encounter OR Notes * Anesthesia Postprocedure Evaluation - Claus Peralta MD - 02/26/2019 4:19 PM CST Patient: Yaneth Duarte Procedure Summary Date: 02/26/19 Room / Location: [facility] CAM OR POD 4 ROOM N / [facility] CAM OR POD 4 Anesthesia Start: 1516 Anesthesia Stop: 1609 Procedure: LEFT UPPER EYELID (Left Eye) Diagnosis: Dermatochalasis of left upper eyelid (Dermatochalasis of left upper eyelid [H02.834]) Surgeon: Ernesot Crandall MD Responsible Provider: Claus Peralta MD Anesthesia Type: MAC ASA Status: 3 Anesthesia Type: MAC Last vitals BP 121/58 Pulse 78 Temp 36.5 ??C (97.7 ??F) (Temporal) Resp 16 SpO2 93% Anesthesia Post Evaluation Patient location during evaluation: PACU Patient participation: complete - patient participated Level of consciousness: fully awake Pain score: 7 Pain management: inadequate Airway patency: adequate and patent Anesthetic complications: no Cardiovascular status: acceptable and hemodynamically stable Respiratory status: acceptable and room air Hydration status: acceptable Pt is: normothermic Nausea/Vomiting status: none TRUCTION EQUIPMENT OVERHAULER * Anesthesia Preprocedure Evaluation - Fer Mclean MD - 02/25/2019 10:16 AM CST Images from the original note were not included. [facility] Preoperative Assessment and Planning Preoperative Evaluation Record Evaluation type/location: TPAP from [facility] Planned procedure site: [facility] CAM OR (Pod 4) Date: 02/25/19 NOTE: This note represents a preoperative evaluation initiated via telephone interview. NO PHYSICALEXAM was performed at the time of initial assessment. A physical exam may be added to this note anddocumented below. Anesthesia Evaluation Yaneth Duarte is a 63 y.o. female Procedure(s): BLEPHAROPLASTY UPPER EYELID Pre-Op Diagnosis Codes: * Dermatochalasis of left upper eyelid [H02.834] HISTORY HPI Yaneth Duarte is a 63 y.o. female who is being evaluated prior to undergoing BLEPHAROPLASTY UPPER EYELID for Dermatochalasis of left upper eyelid . Past Medical History Information obtained from: patient and chart. Neurological + Psychiatric history - anxiety, depression and bipolar Pertinent negatives: seizures; neuromuscular disease; CVA/stroke; TIA; CEA; ICA stenosis; dementia/mild cognitive impairment and carotid artery stent Cardiovascular + Hypertension Hypertension year diagnosed: 2015. Typical systolic BP - 120 Typical diastolic BP - 80 + Hyperlipidemia Pertinent negatives: CAD ; CO ; CABG ; valvular heart disease; valve replacement; atrial fibrillation; arrhythmia; pacemaker/ICD; PVD; DVT/PE; negative for CHF; drug-eluting stent(s); bare metal stent(s) and coronary angioplasty Respiratory + Sleep apnea (CHINO) (uses oxygen at night) + O2 use outside the hospital (reports her 02 sats decrease at night-wears NC) - Sleep O2: 2L/min. Pertinent negatives: COPD; asthma; pulmonary hypertension and non-smoker Hepatic / Heme Hepatic/Heme system: negative Gastrointestinal GI system: negative Renal / Renal/ system: negative Musculoskeletal/Pain + Chronic pain (shoulder pain) + Osteoarthritis (shoulder, left knee) Pertinent negatives: chronic opioid use and previous treatment for opioid use disorder Endocrine / Other + Diabetes mellitus - Diabetes type 2. Diagnosed: 2014. Outpatient insulin use: current. Pt reported low glucose range is 170. Pt reported high glucose range is 200. + Rheumatological disease - Sjogren syndrome. + Infectious disease (r/t abdominoplasty tx wound clinic/packing) - wound infection. Pertinent negatives: thyroid disease; obesity (BMI >30); cancer history and transplanted organ Functional Capacity Functional capacity: <4 METs Comments: Climbs stairs slowly Review of Systems + easy bruising (no excessive bleeding) + muscle weakness (difficulty with right arm due to rotator cuff) + chronic pain (shoulder pain) + chipped/loose teeth (chiped tooth, bridge right side) Pertinent negatives: productive cough; wheezing; SOB; recent cold/flu (cold 01/2019, tx steroids/z-rigo resolved); fever; chest pain; palpitations; orthopnea; pedal edema; PND; heavy menses; Sickle Cell disease/trait; previous transfusion; transfusion reaction; melena/hematochezia; bleeding problems; syncope; dizziness; numbness/tingling; hard of hearing; vision loss; heartburn; nausea; dysphagia;diarrhea; dentures/partials; abdominal pain; diaphoresis and no unexpected weight change PAT Summary and Plans Cardiac risk classification of planned procedure: low cardiac risk. Preoperative assessment status: complete. Initial preoperative evaluation discussed with: Duncan Cotto MD Additional comments: Yaneth Duarte is a 63 y.o. female who is being evaluated prior to undergoing a low cardiac risk surgery. Revised Cardiac Risk Index factors are (insulin therapy for diabetes) for a total RCRI of 1 out of 6. Functional capacity is <4 METs Obstructive sleep apnea (CHINO) screening status is not assessed. Pt reports prior sleep study, oxygen at night was recommended, no CPAP/Bi-PAP. Blood bank needs for day of procedure: No type and screen needed Pending labs/tests include: NA DOS: POCT glucose Surgical laterality discussed with Jacklyn at surgeon's office, planned left sided surgery. This assessment was performed via telephone. Therefore the physical exam has been deferred to the day of surgery team. The patient was provided with preoperative instructions for their medications. The patient was instructed to shower/bathe the night prior and the morning of the planned procedure using an antibacterial soap. Patient instructions were provided in writing sent via telephone. Patient verbalized understanding of preoperative plan. TPAP complete. Preoperative evaluation performed by Niurka Dimas NP on 01/09/19 at 2:26 PM.. Patient Active Problem List Diagnosis ??? Sjogren's syndrome (CMS/HCC) ??? Allergic rhinitis ??? Attention deficit hyperactivity disorder, predominantly inattentive type ??? Bipolar disorder (CMS/HCC) ??? Calcific tendinitis of shoulder ??? Chronic fatigue syndrome ??? Diabetes mellitus (CMS/HCC) ??? Essential hypertension ??? Dysuria ??? Ex-smoker ??? Fatigue ??? Increased frequency of urination ??? Infection of skin ??? Multiple joint pain ??? Osteoarthritis ??? Open wound of abdominal wall without complication ??? Sjogren's syndrome (CMS/HCC) ??? Obesity ??? Autoimmune disease (CMS/HCC) ??? Vaginal bleeding ??? Postmenopausal bleeding ??? Wound cellulitis ??? Shoulder joint pain ??? Dermatochalasis of left upper eyelid Past Medical History: Diagnosis Date ??? Anxiety disorder Anxiety ??? Depression Depression ??? Diabetes mellitus (CMS/HCC) Diabetes ??? Heart murmur heart murmur ??? HX OTHER MEDICAL increased heart rate Past Surgical History: Procedure Laterality Date ??? ABDOMINOPLASTY 1990 ??? BLEPHAROPLASTY Bilateral 1999 ??? CATARACT EXTRACTION Bilateral 11/2018 ??? COLONOSCOPY 2016 ??? HYSTERECTOMY 1988 ??? KNEE ARTHROPLASTY Left 2007 ??? KNEE ARTHROPLASTY Right 2009 OB History No obstetric history on file. Allergies Allergen Reactions ??? Codeine Itching Taking? Last Dose Start Date End Date Provider ALPRAZolam (XANAX) 2 mg tablet 08/15/18 -- Historical Provider, ARIPiprazole (ABILIFY) 30 mg tablet -- -- Historical Provider, atorvastatin (LIPITOR) 40 mg tablet 11/05/18 -- Historical Provider, MD ADRIAN MCKENNAPEN U-100 INSULIN 100 unit/mL (3 mL) insulin pen 11/22/18 -- Historical Provider, celecoxib (CeleBREX) 200 mg capsule -- -- Historical Provider, cyanocobalamin (Vitamin B-12) 1,000 mcg/mL injection -- -- Historical Provider, desvenlafaxine 100 mg tablet extended release 24hr -- -- Historical Provider, dextroamphetamine-amphetamine (ADDERALL) 20 mg tablet 08/16/18 -- Historical Provider, lidocaine (Lidoderm) 5 % -- -- Historical Provider, liraglutide (VICTOZA) 0.6 mg/0.1 mL (18 mg/3 mL) injection -- -- Historical Provider, metoprolol XL (TOPROL-XL) 50 mg 24 hr tablet -- -- Historical Provider, oxyCODONE-acetaminophen (PERCOCET) 10-325 mg per tablet 01/08/19 -- Historical Provider, oxygen -- -- Historical Provider, No current facility-administered medications for this encounter. Current Outpatient Medications: ??? ALPRAZolam (XANAX) 2 mg tablet ??? ARIPiprazole (ABILIFY) 30 mg tablet ??? atorvastatin (LIPITOR) 40 mg tablet ??? BASAGLAR KWIKPEN U-100 INSULIN 100 unit/mL (3 mL) insulin pen ??? celecoxib (CeleBREX) 200 mg capsule ??? desvenlafaxine 100 mg tablet extended release 24hr ??? dextroamphetamine-amphetamine (ADDERALL) 20 mg tablet ??? liraglutide (VICTOZA) 0.6 mg/0.1 mL (18 mg/3 mL) injection ??? metoprolol XL (TOPROL-XL) 50 mg 24 hr tablet ??? oxygen ??? cyanocobalamin (Vitamin B-12) 1,000 mcg/mL injection ??? lidocaine (Lidoderm) 5 % ??? oxyCODONE-acetaminophen (PERCOCET) 10-325 mg per tablet Social History Tobacco Use Smoking Status Former Smoker ??? Packs/day: 1.00 ??? Types: Cigarettes ??? Start date: 1970 ??? Last attempt to quit: 2009 ??? Years since quittin.0 Smokeless Tobacco Never Used Substance and Sexual Activity Alcohol Use No Substance and Sexual Activity Drug Use Not Currently ??? Types: Marijuana Family History Problem Relation Age of Onset ??? Other Other Family history of Cancer, kidney; ??? Osteoarthritis Other Family history of Osteoarthritis; ??? Osteoporosis Other Family history of Osteoporosis; ??? Crohn's disease Daughter Family history of Crohn's disease - (Added by TW Conv) There were no vitals filed for this visit. PT: No results found for requested labs within last 720 hours. INR: No results found for requested labs within last 720 hours. APTT: No results found for requested labs within last 720 hours. Hgb A1C: No results found for requested labs within last 720 hours. CBC RBC: No results found for requested labs within last 720 hours. RDW: No results found for requested labs within last 720 hours. MCHC: No results found for requested labs within last 720 hours. MCH: No results found for requested labs within last 720 hours. MCV: No results found for requested labs within last 720 hours. Hct: No results found for requested labs within last 720 hours. Hgb: No results found for requested labs within last 720 hours. WBC: No results found for requested labs within last 720 hours. MPV: No results found for requested labs within last 720 hours. Platelets: No results found for requested labs within last 720 hours. RDW CV: No results found for requested labs within last 720 hours. RDW Sd: No results found for requested labs within last 720 hours. BMP Glucose: No results found for requested labs within last 720 hours. Calcium: No results found for requested labs within last 720 hours. Sodium: No results found for requested labs within last 720 hours. Potassium: No results found for requested labs within last 720 hours. CO2: No results found for requested labs within last 720 hours. Chloride: No results found for requested labs within last 720 hours. BUN: No results found for requested labs within last 720 hours. Creatinine: No results found for requested labs within last 720 hours. DOS Physical Exam Medical history, medications, and allergies reviewed. Attestation: I endorse the findings of the anesthesia pre-evaluation assessment dated: 02/25/2019. Airway Exam: Mallampati: I Cervical ROM: FROM TM distance: >4 Cardiovascular Exam: Rate: regular Rhythm: regular Pulmonary Exam: LCTA, bilat EENT Exam: trachea midline Dental Exam: Appears intact Abdominal Exam: Abdomen is soft. Current state: Patient's current state is cooperative. Anesthesia Plan ASA 3 My patient is approved for the Anesthesia Controlled Medication protocol when under care of a APPLICATION SUPPORT ADMINISTRATOR Planned anesthesia: MAC Induction: Induction: intravenous. Postoperative Plan: No plan for postoperative opioid use. Informed Consent: Discussed plan with APPLICATION SUPPORT ADMINISTRATOR. Anesthesia plan and risks discussed with patient and spouse. Consent and Attending signature: I and/or my designee have discussed the anesthesia plan, benefits, possible alternatives, parental presence at time of induction (if indicated), and clinically relevant risks that may include dental injury, unintentional awareness, and/or other complications. The patient and/or parent/legal guardian understand, and agree to proceed. All questions answered. TRUCTION EQUIPMENT OVERHAULER TRUCTION EQUIPMENT OVERHAULER documented in this encounter Plan of Treatment Not on file documented as of this encounter Visit Diagnoses Not on filedocumented in this encounter Administered Medications Inactive Administered Medications - up to 3 most recent administrations Medication Order MAR Action Action Date Dose Rate Site fentaNYL (SUBLIMAZE) preservative free injection intravenous, As needed, Starting on Mon02/26/19 at 1512, Anesthesia Intra-op Given 02/26/2019 3:12 PM CONSTRUCTION EQUIPMENT OVERHAULER 25 mcg lidocaine PF (XYLOCAINE) 10 mg/mL (1 %) preservative free injection As needed, Starting on Mon02/26/19 at 1529, Anesthesia Intra-op Given 02/26/2019 3:29 PM CONSTRUCTION EQUIPMENT OVERHAULER 60 mg midazolam (VERSED) preservative free injection intravenous, Administer over 2 Minutes, As needed, Starting on Mon02/26/19 at 1512, Anesthesia Intra-op Given 02/26/2019 3:12 PM CONSTRUCTION EQUIPMENT OVERHAULER 1 mg propofol (DIPRIVAN) IV intravenous, As needed, Starting on Mon02/26/19 at 1529, Anesthesia Intra-op Given 02/26/2019 3:29 PM CONSTRUCTION EQUIPMENT OVERHAULER 50 mg documented in this encounter Care Teams Plumbing Contractor Relationship Specialty Start Date End Date Laura Grider MD PCP - General 03/19/13 08/17/23 documented as of this encounter
--- OUTSIDE RECORDS SUMMARY | 2024-03-08 00:44 | XMS_ITS | Encounter Summary ---
Author Organization [facility] Address [address] [place] [address] Phone Care Team Providers Care Cable Braider Name Role Phone Laura Grider MD Primary Care Provider + Cammie Woodruff OD Unavailable [phone] Encounter Details Date Type Department Care Team (Latest Contact Info) Description 03/13/2019 8:30 AM STEWARD/STEWARDESS DINING ROOM Office Visit [facility] Ophthalmology [facility] [address]th [place] [address] Ernesto Crandall MD [address] [facility] [address] [place] [address] Dermatochalasis of left upper eyelid (Primary Dx) Social History Tobacco Use Types Packs/Day Years Used Date Smoking Tobacco: Former Cigarettes 1 39 1 971 - 2010 Smokeless Tobacco: Never Alcohol Use Standard Drinks/Week Comments No 0 (1 standard drink = 0.6 oz pur e alcohol) Comments Unknown Sex and Gender Information Value Date Recorded Sex Assigned at Not on file Legal Sex Female 3:03 AM STEWARD/STEWARDESS DINING ROOM Gender Identity Not on file Sexual Orientation Not on file documented as of this encounter Progress Notes * Ernesto Crandall MD - 03/13/2019 8:30 AM CST Images from the original note were not included. Date of Visit: 03/13/2019 Patient Name: Yaneth Duarte Age: 63 y.o. Gender: female : 1955 Primary Care Provider: Laura Grider MD Referring Provider: Laura Grider MD Problem List Items Addressed This Visit None Last Surgical Procedure: Left Upper Eyelid - Left 02/26/2019 History: Returns following left upper eyelid blepharoplasty. Cultures grew out staph. She feels much improved after completing her course of Bactrim. She has not been using any ointment. Examination: Base Eye Exam Visual Acuity (Snellen - Linear) Right Left Dist sc 20/20D 20/J1N Neuro/Psych Oriented x3: Yes Mood/Affect: Normal Impression: Doing well following left upper eyelid blepharoplasty. She will contact us should she note recurrent inflammation. Return in 2 months. I have personally examined the patient, participated in all aspects of their care, and formulated the treatment plan. ARD/STEWARDESS DINING ROOM documented in this encounter Plan of Treatment Not on file documented as of this encounter Visit Diagnoses Diagnosis Dermatochalasis of left upper eyelid- Primary documented in this encounter Eye Exam Visual Acuity (Snellen - Linear) Right eye Left eye Dist sc 20/20D 20/J1N Neuro/Psych Oriented x3: Yes Mood/Affect: Normal External Exam Improved left upper eyelid (WHIT) swelling, redness. Incision healed, but crusty, sutures removed. Slit Lamp Exam Right eye Left eye Lids/Lashes Normal Normal Conjunctiva/Sclera White and quiet White and julia et Cornea in pannus Clear Anterior Chamber Deep and quiet Deep and quiet Iris Round and reactive Round and carter ctive Lens Posterior chamber in traocular lens Posterior chamber intraocular lens Care Teams Cable Braider Relationship Specialty Start Date End Date Laura Grider MD PCP - General 03/19/13 08/17/23 Cammie Woodruff, OD [address] [place] [address] Optometry 03/13/19 documented as of this encounter
--- OUTSIDE RECORDS SUMMARY | 2024-03-08 00:44 | XMS_ITS | Encounter Summary ---
Author Organization [facility] Address [address] [place] [address] Phone Care Team Providers Care Animal Warden Name Role Phone Laura Grider MD Primary Care Provider + Encounter Details Date Type Department Care Team (Late st Contact Info) Description 02/08/2019 Documentation [facility] Ophthalmology [address] [facility] [address]th [place] [id number] Elisa Kaur B.A. Social History Tobacco Use Types Packs/Day Years Used Date Smoking Tobacco: Former Cigarettes 1.8 39 1 971 - 2010 Smokeless Tobacco: Former Alcohol Use Standard Drinks/Week Comments No 0 (1 standard drink = 0.6 oz pur e alcohol) Comments Unknown Sex and Gender Information Value Date Recorded Sex Assigned at Not on file Legal Sex Female 3:03 AM OPERATOR CATALYST CONCENTRATION Gender Identity Not on file Sexual Orientation Not on file documented as of this encounter Progress Notes * Elisa Beauchamp B.A. 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
--- OUTSIDE RECORDS SUMMARY | 2024-03-08 00:44 | XMS_ITS | Encounter Summary ---
Author Organization [facility] Healthcare Address [address] [place] [address] Care Team Providers Care Motion Picture Director Name Role Phone Laura Grider MD Primary Care Provider + Cammie Woodruff OD Unavailable Encounter Details Date Type Department Care Team (Late st Contact Info) Description 05/09/2023 Telephone [facility] Medical Group Orthopedics and Sports Medicine at [address] [address] Khalif Espitia MD [address] [place] [id number] Social History Tobacco Use Types Packs/Day Years Used Date Smoking Tobacco: Former Cigarettes 1 39 1 971 - 2010 Smokeless Tobacco: Never Alcohol Use Standard Drinks/Week Comments No 0 (1 standard drink = 0.6 oz pur e alcohol) Comments Unknown Sex and Gender Information Value Date Recorded Sex Assigned at Not on file Legal Sex Female 3:03 AM DIAL SCREW ASSEMBLER Gender Identity Not on file Sexual Orientation Not on file documented as of this encounter Miscellaneous Notes * Telephone Encounter - Samia Ramsey PA - 05/09/2023 2:43 PM CDT Meloxicam sent to pharmacy * Telephone Encounter - Irene Brantley - 05/09/2023 2:12 PM CDT Patient calling requesting anti-inflammatory she discussed this Dr Espitia at her appointment on 05/08/23. documented in this encounter Plan of Treatment Not on file documented as of this encounter Visit Diagnoses Not on filedocumented in this encounter Care Teams Motion Picture Director Relationship Specialty Start Date End Date Laura Grider MD PCP - General 03/19/13 08/17/23 Cammie Woodruff OD [address] [place] [address] Optometry 03/13/19 documented as of this encounter
--- OUTSIDE RECORDS SUMMARY | 2024-03-08 00:44 | XMS_ITS | Encounter Summary ---
Author Organization [facility] Address [address] [place] [address] Phone Care Team Providers Care Diversional Therapist Name Role Phone Laura Grider MD Primary Care Provider + Encounter Details Date Type Department Care Team (Latest Contact Info) Description 03/06/2019 11:45 AM LIFT MECHANIC Office Visit [facility] Ophthalmology [facility] 6th [place] [address] Ernesto Crandall MD [address] [facility] [address] [place] [address] Dermatochalasis of left upper eyelid [...] on file Legal Sex Female 3:03 AM LIFT MECHANIC Gender Identity Not on file Sexual Orientation Not on file documented as of this encounter Patient Instructions * Patient Instructions* Cedrick Fournier MD - 03/06/2019 11:45 AM LIFT MECHANIC MECHANIC documented in this encounter Ordered Prescriptions Prescription Sig Dispense Quantity Refills Last Filled Start Date End Date sulfamethoxazole-t rimethoprim (BACTRIM DS) 800-160 mg per tablet Take 1 tablet by mouth 2 (two) times a day for 7 days 14 tablet 03/06/2019 03/13/2019 documented in this encounter Progress Notes * Ernesto Crandall MD - 03/06/2019 11:45 AM CST Images from the original note were not included. Date of Visit: 03/06/2019 Patient Name: Yaneth Duarte Age: 63 y.o. Gender: female : 1955 Primary Care Provider: Laura Grider MD Referring Provider: Laura Grider MD Problem List Items Addressed This Visit Dermatochalasis of left upper eyelid - Primary Last Surgical Procedure: 02/26/2019 Left Upper Eyelid - Left blepharoplasty History: Returns following left upper eyelid blepharoplasty. She reports that her left upper lid appeared more healed approximately 4 days after surgery. Since then she reports that there has been increasing inflammation and redness. She reports some tenderness. Examination: Base Eye Exam Visual Acuity (Snellen - Linear) Right Left Dist sc 20/60 20/30 Pupils Dark Light Shape React APD Right 3 2 Round Brisk None Left 3 2 Round Brisk None Neuro/Psych Oriented x3: Yes Mood/Affect: Normal Slit Lamp and Fundus Exam External Exam Right Left External periocular edema Slit Lamp Exam Right Left Lids/Lashes moderate erythema and edema surrounding incision site of WHIT with minimal purulence at suture site Conjunctiva/Sclera White and quiet Impression: She demonstrates some findings concerning for possible early infection. Given this, we will perform a culture of the incision site today and initiate antibiotic treatment orally with Bactrim DS. We will keep the sutures in place today and have her return to clinic in 1 week for suture remove. We have instructed her to call immediately if her eyelid is to worsen given. Continue topicalantibiotic ointment. I have personally examined the patient, participated in all aspects of their care, and formulated the treatment plan. MECHANIC documented in this encounter Plan of Treatment Not on file documented as of this encounter Results * (ABNORMAL) Aerobic culture and gram stain Wound Left (03/06/2019 4:56 PM LIFT MECHANIC) Direct Specimen Exam Stain: Rare polymorphonuclear leukocytes seen. Moderate Gram Positive Cocci in clusters [facility] Report Final Report: Moderate Staphylococcus aureus Methicillin susceptible (MSSA) by penicillin binding protein 2a (PBP2a) testing. This isolate is presumed to be resistant to clindamycin based on detection of inducible clindamycin resistance. Clindamycin may still be effective in some patients. Notification of: Staphylococcus aureus called to and read back by: Sharron Barrera, COT [phone] on 03/08/2019 by: Miriam Moreno MT (.) [facility] Organism STAPHYLOCOCCUS AUREUS [facility] Wound (Left) 03/06/2019 4:56 PM LIFT MECHANIC 03/06/2019 6:01 PM LIFT MECHANIC Narrative [facility] - 03/09/2019 3:03 PM LIFT MECHANIC L Upper Eyelid Specimen received on an ESwab. Testing performed by [facility] ([phone]) Specimens submitted from normally sterile body sites will have all bacterial morphotypes identified. ??Specimens that contain grossly mixed sekou and/or are from body sites that are not normally sterile will be examined for Staphylococcus aureus, Pseudomonas aeruginosa, beta-hemolytic strep, vancomycin-resistant Enterococcus and fungus. ??If any of these are isolated, the organism will be reported. Current interpretive data was last revised on 2016. Organism Antibiotic Method Susceptibility Staphylococcus aureus Vancomycin INTERPRETATION Susceptible Staphylococcus aureus Trimethoprim with Sulfamethoxazole INTERPRETATION Resistant Staphylococcus aureus Linezolid INTERPRETATION Susceptible Staphylococcus aureus Doxycycline INTERPRETATION Susceptible Staphylococcus aureus Clindamycin INTERPRETATION Resistant Staphylococcus aureus Erythromycin INTERPRETATION Resistant Staphylococcus aureus Oxacillin INTERPRETATION Susceptible Staphylococcus aureus Cefazolin INTERPRETATION Susceptible Staphylococcus aureus Ceftriaxone INTERPRETATION Susceptible us Cedrick Fournier MD LAB MICROBIOLOGY - GENER AL ORDERABLES Final Result [facility] Department [place] [address] documented in this encounter Visit Diagnoses Diagnosis Dermatochalasis of left upper eyelid- Primary Dermatochalasis of left upper eyelid documented in this encounter Eye Exam Visual Acuity (Snellen - Linear) Right eye Left eye Dist sc 20/60 20/30 Pupils Dark Light Shape React APD Right eye 3 2 Round Brisk None Left eye 3 2 Round Brisk None Neuro/Psych Oriented x3: Yes Mood/Affect: Normal External Exam Right eye Left eye External periocular edema There is erythema of the left upper eyelid with mild edema. The edges of the incision appear to be slightly macerated with intact sutures. Slit Lamp Exam Right eye Left eye Lids/Lashes moderate erythem a and edema surrounding incision site of WHIT with minimal purulence at suture site Conjunctiva/Sclera White and julia et Care Teams Diversional Therapist Relationship Specialty Start Date End Date Laura Grider MD PCP - General 03/19/13 08/17/23 documented as of this encounter
--- OUTSIDE RECORDS SUMMARY | 2024-03-08 00:44 | XMS_ITS | Encounter Summary ---
Author Organization [facility] Address [address] [place] [address] Phone Care Team Providers Care Cigar Making Supervisor Name Role Phone Laura Grider MD Primary Care Provider + Encounter Details Date Type Department Care Team (Late st Contact Info) Description 01/28/[address] [facility] Ophthalmology [address] [facility] 6th [place] [address] Elisa Kaur B.A. Social History Tobacco Use Types Packs/Day Years Used Date Smoking Tobacco: Former Cigarettes 1.8 39 1 971 - 2010 Smokeless Tobacco: Former Alcohol Use Standard Drinks/Week Comments No 0 (1 standard drink = 0.6 oz pur e alcohol) Comments Unknown Sex and Gender Information Value Date Recorded Sex Assigned at Not on file Legal Sex Female 3:03 AM VEHICLE TECHNICIAN Gender Identity Not on file Sexual Orientation Not on file documented as of this encounter Progress Notes * Elisa Beauchamp B.A. - 01/28/2019 10:51 AM CST Left pt a vm to call me to get sx rsc. CLE TECHNICIAN documented in this encounter Plan of Treatment Not on file documented as of this encounter Visit Diagnoses Not on filedocumented in this encounter Care Teams Cigar Making Supervisor Relationship Specialty Start Date End Date Laura Grider MD PCP - General 03/19/13 08/17/23 documented as of this encounter
--- OUTSIDE RECORDS SUMMARY | 2024-03-08 00:44 | XMS_ITS | Encounter Summary ---
Author Organization [facility] Address [address] [place] [address] Phone Care Team Providers Care Hand Assembler For Puller Over Name Role Phone Laura Grider MD Primary Care Provider + Cammie Woodruff OD Unavailable [phone] Encounter Details Date Type Department Care Team (Late st Contact Info) Description 05/09/2019 Documentation [facility] Ophthalmology [address] [facility] 6th [place] [address] Elisa Kaur B.A. Social History Tobacco Use Types Packs/Day Years Used Date Smoking Tobacco: Former Cigarettes 1 39 1 971 - 2009 Smokeless Tobacco: Never Alcohol Use Standard Drinks/Week Comments No 0 (1 standard drink = 0.6 oz pur e alcohol) Comments Unknown Sex and Gender Information Value Date Recorded Sex Assigned at Not on file Legal Sex Female 3:03 AM SECOND WATCH SERGEANT Gender Identity Not on file Sexual Orientation Not on file documented as of this encounter Progress Notes * Elisa Beauchamp B.A. - 05/09/2019 3:04 PM CDT Left pt a vm to call me to let me know how she is doing , I communicated if she is doing ok we can cx her appointment on Monday05-13-19 under the circumstances. documented in this encounter Plan of Treatment Not on file documented as of this encounter Visit Diagnoses Not on filedocumented in this encounter Care Teams Hand Assembler For Puller Over Relationship Specialty Start Date End Date Laura Grider MD PCP - General 03/19/13 08/17/23 Cammie Woodruff OD [address] [place] [address] Optometry 03/13/19 documented as of this encounter
--- OUTSIDE RECORDS SUMMARY | 2024-03-08 00:44 | XMS_ITS | Encounter Summary ---
Author Organization [facility] Address [address] [place] [address] Phone Care Team Providers Care Armed Custom Protection Officer Name Role Phone Laura Grider MD Primary Care Provider + Encounter Details Date Type Department Care Team (Late st Contact Info) Description 12/13/2018 Documentation [facility] Ophthalmology [facility] 6th [place] [phone] Elisa Kaur B.A. Social History Tobacco Use Types Packs/Day Years Used Date Smoking Tobacco: Former Alcohol Use Standard Drinks/Week Comments No 0 (1 standard drink = 0.6 oz pur e alcohol) Comments Unknown Sex and Gender Information Value Date Recorded Sex Assigned at Not on file Legal Sex Female 3:03 AM UTILIZATION SPECIALIST Gender Identity Not on file Sexual Orientation Not on file documented as of this encounter Progress Notes * Elisa Beauchamp B.A. - 12/13/2018 3:13 PM CDT auth approval number [id number] 09-20-18 to 03-23-19 documented in this encounter Plan of Treatment Not on file documented as of this encounter Visit Diagnoses Not on filedocumented in this encounter Care Teams Armed Custom Protection Officer Relationship Specialty Start Date End Date Laura Grider MD PCP - General 03/19/13 08/17/23 documented as of this encounter
--- OUTSIDE RECORDS SUMMARY | 2024-03-08 00:44 | XMS_ITS | Encounter Summary ---
Author Organization [facility] Address [address] [place] [address] Care Team Providers Care Garnett Mechanic Name Role Phone Cammie Woodruff OD Unavailable Carline Ramires NP Primary Care Provider [phone] Osmany Foster MD Unavailable [phone] Reason for Visit * Reason Onset Date Comments Medication Request 08/21/2023 Encounter Details Date Type Department Care Team (Late st Contact Info) Description 08/21/2023 Telephone [facility] Primary Care at [address] [address] Carline Ramires NP [address] [place] [address] [address] [place] [address] Medication Request Social History Tobacco Use Types Packs/Day Years [...] on file Legal Sex Female 3:03 AM LONG TERM CARE SOCIAL WORKER Gender Identity Not on file Sexual Orientation Not on file documented as of this encounter Miscellaneous Notes * Telephone Encounter - Mi Pope MA - 08/21/2023 4:21 PM CDT Noted. * Telephone Encounter - Mulu Arroyo - 08/21/2023 3:25 PM CDT Call Back Caller???s Concern: Patient called back to check the status of this request. Advised patient doxycycline (VIBRAMYCIN) 100 mg capsule was sent to pharmacy. Also provided phone number to the [facility]. Patient stated she will call them today. Does message need to be routed? Yes-FYI Only * Telephone Encounter - Carline Ramires NP - 08/21/2023 10:53 AM CDT Ok, will switch abx to Doxycycline. Really needs to be on something though given the infection, needs to get in with wound center. * Telephone Encounter - Codey Dorsey - 08/21/2023 7:31 AM CDT Medication Question/Clarification Medication Name(s): clindamycin (CLEOCIN) 300 mg capsule What is the question or clarification needed? Patient stated she was just started on this medication 08/17 stated her stomach is upset and she is having joint pain If needed, Pharmacy(s) medication(s) should be sent to: pended Additional Comments: na Does message need to be routed? Yes-Action Needed documented in this encounter Plan of Treatment Not on file documented as of this encounter Visit Diagnoses Not on filedocumented in this encounter Additional Health Concerns Infection Onset Date Last Indicated Resolved Time MRSA Comment:R leg wound 08/04/23 08/04/2023 08/04/2023 01/31/2024 3 :05 AM LONG TERM CARE SOCIAL WORKER documented as of this encounter Care Teams Garnett Mechanic Relationship Specialty Start Date End Date Carline Ramires NP [address] [place] [address] PCP - General Family Medicine 08/18/23 Cammie Woodruff OD [address] [place] [address] Optometry 03/13/19 Osmany Foster MD [address] [place] [address] Referring Physician Gastroenterology 08/18/23 [facility] Endocrinology 08/18/23 documented as of this encounter
--- OUTSIDE RECORDS SUMMARY | 2024-03-08 00:44 | XMS_ITS | Encounter Summary ---
Author Organization [facility] Address [address] [place] [address] Phone Care Team Providers Care Information Resources Director Name Role Phone Laura Grider MD Primary Care Provider + Cammie Woodruff OD Unavailable [phone] Encounter Details Date Type Department Care Team (Late st Contact Info) Description 05/09/2019 Documentation [facility] Ophthalmology [address] [facility] 6th [place] [address] Elisa Kaur B.A. Social History Tobacco Use Types Packs/Day Years Used Date Smoking Tobacco: Former Cigarettes 1 39 1 971 - 2009 Smokeless Tobacco: Never Alcohol Use Standard Drinks/Week Comments No 0 (1 standard drink = 0.6 oz pur e alcohol) Comments Unknown Sex and Gender Information Value Date Recorded Sex Assigned at Not on file Legal Sex Female 3:03 AM LIGHT BULB REPLACER Gender Identity Not on file Sexual Orientation Not on file documented as of this encounter Progress Notes * Elisa Beauchamp B.A. - 05/09/2019 2:52 PM CDT Left pt a VM to please call me back in regards to her pov on 05-13-19. I communicated via vm if sheis doing fine we don't need to see her and she should stay home . I asked she call me back to let me know how she is currently doing. documented in this encounter Plan of Treatment Not on file documented as of this encounter Visit Diagnoses Not on filedocumented in this encounter Care Teams Information Resources Director Relationship Specialty Start Date End Date Laura Grider MD PCP - General 03/19/13 08/17/23 Cammie Woodruff OD [address] [place] [address] Optometry 03/13/19 documented as of this encounter
--- OUTSIDE RECORDS SUMMARY | 2024-03-08 00:44 | XMS_ITS | Encounter Summary ---
Author Organization [facility] Address [address] [place] [address] Phone Care Team Providers Care Ticket Collector Name Role Phone Laura Grider MD Primary Care Provider + Encounter Details Date Type Department Care Team (Late st Contact Info) Description 03/12/[address] [facility] Ophthalmology [address] [facility] 6th [place] [address] Elisa Kaur B.A. Social History Tobacco Use Types Packs/Day Years Used Date Smoking Tobacco: Former Cigarettes 1 39 1 971 - 2009 Smokeless Tobacco: Never Alcohol Use Standard Drinks/Week Comments No 0 (1 standard drink = 0.6 oz pur e alcohol) Comments Unknown Sex and Gender Information Value Date Recorded Sex Assigned at Not on file Legal Sex Female 3:03 AM CIGARETTE PACKAGE EXAMINER Gender Identity Not on file Sexual Orientation Not on file documented as of this encounter Progress Notes * Elisa Beauchamp B.A. - 03/12/2019 8:43 AM CST Spoke with pt new pov has been confirmed 8:30am tomorrow. RETTE PACKAGE EXAMINER documented in this encounter Plan of Treatment Not on file documented as of this encounter Visit Diagnoses Not on filedocumented in this encounter Care Teams Ticket Collector Relationship Specialty Start Date End Date Laura Grider MD PCP - General 03/19/13 08/17/23 documented as of this encounter
--- OUTSIDE RECORDS SUMMARY | 2024-03-08 00:44 | XMS_ITS | Encounter Summary ---
Author Organization [facility] Healthcare Address [address] [place] [address] Care Team Providers Care Loom Checker Name Role Phone Laura Grider MD Primary Care Provider + Encounter Details Date Type Department Care Team (Late st Contact Info) Description 01/21/2019 11:59 PM PETROLEUM REFINING EQUIPMENT OPERATOR Anesthesia Event [facility] Operating Room [facility] ([facility]) [address] [place] [address] Niurka Dimas NP [address] [facility] [phone] [place], [place] [id number] Anesthesia Record Procedure Summary Procedure Name Responsible Anesthesiologist Anesthesia Start Time Anesthesia Stop Time BLEPHAROPLASTY UPPER EYELID (canceled) Events No events on file. Meds * Agents No agents on file. * Blood No blood administrations on file. Lines, Drains, and Airways No LDAs on file. documented in this encounter Social History Tobacco Use Types Packs/Day Years Used Date Smoking Tobacco: Former Cigarettes 1.8 39 1 971 - 2010 Smokeless Tobacco: Former Alcohol Use Standard Drinks/Week Comments No 0 (1 standard drink = 0.6 oz pur e alcohol) Comments Unknown Sex and Gender Information Value Date Recorded Sex Assigned at Not on file Legal Sex Female 3:03 AM PETROLEUM REFINING EQUIPMENT OPERATOR Gender Identity Not on file Sexual Orientation Not on file documented as of this encounter OR Notes * Anesthesia Preprocedure Evaluation - Niurka Dimas NP - 01/09/2019 1:55 PM CST Images from the original note were not included. [facility] Planning Preoperative Evaluation Record Evaluation type/location: TPAP from [facility] CAM OR (Pod 4) Date: 01/09/19 NOTE: This note represents a preoperative evaluation [...] who is being evaluated prior to undergoing blepharoplasty Past Medical History Information obtained from: patient and chart. Neurological + Psychiatric history - anxiety, depression and bipolar Pertinent negatives: seizures; neuromuscular disease; CVA/stroke; TIA; CEA; ICA stenosis; dementia/mild cognitive impairment and carotid artery stent Cardiovascular + Hypertension Typical systolic BP - 120 Typical diastolic BP - 80 Pertinent negatives: CAD ; AK ; CABG ; valvular heart disease; valve replacement; atrial fibrillation; arrhythmia; pacemaker/ICD; PVD; DVT/PE; negative for CHF; drug-eluting stent(s); bare metal stent(s) and coronary angioplasty Respiratory + O2 use outside the hospital (reports her 02 sats decrease at night-wears NC) - Sleep O2: 2L/min. Pertinent negatives: COPD; asthma; sleep apnea (CHINO); pulmonary hypertension and non-smoker Hepatic / Heme Pertinent negatives: liver disease; history of anemia; history of thrombocytopenia and history of Chel positive Gastrointestinal Pertinent negatives: GERD and hiatal hernia Renal / Pertinent negatives: renal disease; dialysis and nephrolithiasis Musculoskeletal/Pain + Chronic pain (shoulder pain) + Osteoarthritis Pertinent negatives: chronic opioid use and previous treatment for opioid use disorder Endocrine / Other + Diabetes mellitus - Diabetes type 2. Diagnosed: 2014. Outpatient insulin use: current. Pt reported low glucose range is 170. Pt reported high glucose range is 200. + Infectious disease (w/ abdominoplasty had skin infec) - wound infection. Pertinent negatives: thyroid disease; obesity (BMI >30); cancer history; rheumatological diseaseand transplanted organ Functional Capacity Functional capacity: <4 METs Comments: Climbs stairs slowly Review of Systems + productive cough (recent cough last week, clear sputum is resolving.) + muscle weakness (difficulty with right arm due to rotator cuff) + chronic pain (shoulder pain) Pertinent negatives: wheezing (occasionally at night); SOB; recent cold/flu; fever; chest pain; palpitations; orthopnea; pedal edema; PND; heavy menses; Sickle Cell disease/trait; previous transfusion; transfusion reaction; melena/hematochezia; easy bruising; bleeding problems; syncope; dizziness; n umbness/tingling; hard of hearing; vision loss; heartburn; nausea; dysphagia; diarrhea; dentures/partials; chipped/loose teeth; abdominal pain; diaphoresis and no unexpected weight change PAT Summary and Plans Cardiac risk classification of planned procedure: low cardiac risk. Additional comments: Yaneth Duarte is a 63 y.o. female who is being evaluated prior to undergoing a low cardiac risk surgery. Revised Cardiac Risk Index factors are (insulin therapy for diabetes) for a total RCRI of 1 out of 6. Functional capacity is <4 METs Obstructive sleep apnea (CHINO) screening status is pending. Blood bank needs for day of procedure: No type and screen needed Pending labs/tests include: NA This assessment was performed via telephone. Therefore the physical exam has been deferred to the day of surgery team. The patient was provided with preoperative instructions for their medications. The patient was instructed to shower/bathe the night prior and the morning of the planned procedure using an antibacterial soap. Patient instructions were provided in writing sent via [employer] mail and telephone. Patient verbalized understanding of preoperative plan. Pt denies orthopnea. Discussed 02 use with CPAP attending, pt denies asthma, COPD (smoking hx) States she only wears at night. TPAP complete. Preoperative evaluation performed by Niurka [...] Laterality Date ??? ABDOMINOPLASTY 1990 ??? BLEPHAROPLASTY ??? CATARACT EXTRACTION ??? COLONOSCOPY ??? HYSTERECTOMY 1988 ??? KNEE ARTHROPLASTY Left 2007 ??? KNEE ARTHROPLASTY Right 2009 OB History No obstetric history on file. Allergies Allergen Reactions ??? Codeine Itching Med List Status: Nurse Complete Set By: Ronaldo Sierra RN at 01/03/2019 5:50 PM Taking? Last Dose Start Date End Date Provider ALPRAZolam (XANAX) 2 mg tablet 08/15/18 -- Historical Provider, ARIPiprazole (ABILIFY) 30 mg tablet -- -- Historical Provider, atorvastatin (LIPITOR) 40 mg tablet 11/05/18 -- Historical Provider, MD ADRIAN DAVIS U-100 INSULIN 100 unit/mL (3 mL) insulin pen 11/22/18 -- Historical Provider, desvenlafaxine 100 mg tablet extended release 24hr -- -- Historical Provider, dextroamphetamine-amphetamine (ADDERALL) 20 mg tablet 08/16/18 -- Historical Provider, glyBURIDE (DIABETA) 5 mg tablet 07/30/18 -- Historical Provider, metFORMIN (FORTAMET) 500 mg 24 hr tablet -- -- Historical Provider, metoprolol XL (TOPROL-XL) 50 mg 24 hr tablet -- -- Historical Provider, NOVOLOG FLEXPEN U-100 INSULIN 100 unit/mL (3 mL) insulin pen 12/12/18 -- Historical Provider, oxygen -- -- Historical Provider, No current facility-administered medications for this encounter. Current Outpatient Medications: ??? ALPRAZolam (XANAX) 2 mg tablet ??? ARIPiprazole (ABILIFY) 30 mg tablet ??? atorvastatin (LIPITOR) 40 mg tablet ??? BASAGLAR KWIKPEN U-100 INSULIN 100 unit/mL (3 mL) insulin pen ??? desvenlafaxine 100 mg tablet extended release 24hr ??? dextroamphetamine-amphetamine (ADDERALL) 20 mg tablet ??? glyBURIDE (DIABETA) 5 mg tablet ??? metoprolol XL (TOPROL-XL) 50 mg 24 hr tablet ??? NOVOLOG FLEXPEN U-100 INSULIN 100 unit/mL (3 mL) insulin pen ??? oxygen ??? metFORMIN (FORTAMET) 500 mg 24 hr tablet Social History Tobacco Use Smoking Status Former Smoker ??? Packs/day: 1.75 ??? Start date: 1970 ??? Last attempt to quit: 2009 ??? Years since quittin.8 Smokeless Tobacco Former User Substance and Sexual Activity Alcohol Use No Substance and Sexual Activity Drug Use Not Currently Family History Problem Relation Age of Onset [...] for requested labs within last 720 hours. Fish index score: 100 OLEUM REFINING EQUIPMENT OPERATOR documented in this encounter Plan of Treatment Not on file documented as of this encounter Visit Diagnoses Not on filedocumented in this encounter Care Teams Loom Checker Relationship Specialty Start Date End Date Laura Grider MD PCP - General 03/19/13 08/17/23 documented as of this encounter
--- OUTSIDE RECORDS SUMMARY | 2024-03-08 00:44 | XMS_ITS | Encounter Summary ---
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 Gender Identity Not on file Sexual Orientation Not on file documented as of this encounter Medications at Time of Discharge ARIPiprazole (ABILIFY) 30 mg tabletIndications:M ixed Bipolar I Disorder Take 1 tablet (30 mg total) by mouth nightly atorvastatin (LIPITOR) 40 mg tablet Take 1 tablet (40 mg total) by mouth nightly 11/05/2018 MEAGANAGLALEXIS DAVIS U-100 INSULIN 100 unit/mL (3 mL) insulin penIndications:type 2 diabetes mellitus Inject 18 Units under the skin nightly 11/22/2018 desvenlafaxine ER (PRISTIQ) 100 mg 24 hr tablet 10/03/2022 Farxiga 10 mg tablet 10/25/2022 meloxicam (MOBIC) 15 mg tablet Take 1 tablet (15 mg total) by mouth daily With food. Do not take with other NSAIDS (ibuprofen, naproxen, ect.) 90 tablet 1 05/10/2023 5 mesalamine (LIALDA) 1.2 gram EC tablet 10/04/2022 metoprolol XL (TOPROL-XL) 50 mg 24 hr tabletIndications:h ypertension Take 1 tablet (50 mg total) by mouth nightly Ozempic 2 mg/dose (8 mg/3 mL) pen injector injection 07/23/2022 cephalexin (KEFLEX) 500 mg capsuleIndications: Skin/Soft Tissue Infection Take 1 capsule (500 mg total) by mouth 2 (two) times a day for 10 days 20 capsule 08/04/2023 4 ALPRAZolam (XANAX) 1 mg tabletIndications:a nxiety Take [...] mouth daily as needed for pain 4 ciprofloxacin (CIPRO) 500 mg tablet Take 1 tablet (500 mg total) by mouth 2 (two) times a day 07/20/2023 4 cyanocobalamin (Vitamin B-12) 1,000 mcg/mL injection [...] eszopiclone (LUNESTA) 2 mg tablet 05/01/2023 4 levoFLOXacin (LEVAQUIN) 750 mg tablet 06/05/2023 4 lidocaine (Lidoderm) 5 % Apply 1 patch topically as needed 4 liraglutide (VICTOZA) 0.6 mg/0.1 mL (18 mg/3 mL) injectionIndication s:type 2 diabetes mellitus Inject 1.6 mg under the skin every morning Indications: type 2 diabetes mellitus 4 mupirocin (BACTROBAN) 2 % ointmentIndications :Wound cellulitis Apply topically 3 (three) times a day 22 g 08/04/2023 4 nitrofurantoin monohydrate (MACROBID) 100 mg capsule 10/19/2022 4 nystatin 100,000 unit/mL suspension TAKE 10 ML BY MOUTH 4 TIMES A DAY 4 oxyCODONE-acetamino phen (PERCOCET) 10-325 mg per [...] Miscellaneous Notes * Result Encounter Note - Aliyah Nobles NP - 08/04/2023 11:59 PM CDT Pt on mupirocin and cephalexin, awaiting final report with susceptibility * Result Encounter Note - Yessy Hector MA - 08/04/2023 11:59 PM CDT Sores seem to not be improving. Patient is still cleaning and changing it daily. * Result Encounter Note - Yessy Hector MA - 08/04/2023 11:59 PM CDT Patient states wounds are not improving. * Result Encounter Note - Yessy Hector MA - 08/04/2023 11:59 PM CDT Please advise. documented in this encounter Plan of Treatment Not on file documented as of this encounter Procedures Procedure Name Priority Date/Time Associated Diagnosis Comments AEROBIC AND ANAEROBIC CULTURE AND GRAM STAIN Routine 08/04/2023 11:00 AM CDT Wound cellulitis documented in this encounter Results * (ABNORMAL) Aerobic and anaerobic culture and gram stain Wound Leg, right (08/04/2023 11:00 AM CDT) Direct Specimen Exam Stain: No polymorphonuclear leukocytes seen. Abundant Gram Positive Cocci Comment:Testing performed by : [facility], [address] [place] [address], [place] [address] Report Final Report: Moderate Staphylococcus aureus Methicillin resistant (MRSA) by penicillin binding protein 2a (PBP2a) testing. (.) MERY GA Comment:Testing performed by : [facility], [address] [place] [address], [place] [address] Organism STAPHYLOCOCCUS AUREUS MERY Wound (Leg, right) 08/04/2023 11:00 AM CDT 08/04/2023 7:40 PM CDT Narrative MERY GA - 08/11/2023 3:48 PM CDT Specimen received on an ESwab. Testing performed by [facility]biology Laboratory ([phone]) Specimens submitted from normally sterile body sites will have all bacterial morphotypes identified. Specimens that contain grossly mixed sekou and/or are from body sites that are not normally sterile will be examined for Staphylococcus aureus, Pseudomonas aeruginosa, beta-hemolytic strep, vancomycin-resistant Enterococcus, Bacteroides, Parabacteroides, Clostridium perfringens and fungus. If any of these are isolated, the organism will be reported. Current interpretive data was last revised on 2019. Organism Antibiotic Method Susceptibility Staphylococcus aureus Vancomycin INTERPRETATION Susceptible Staphylococcus aureus Ceftaroline INTERPRETATION Susceptible Staphylococcus aureus Trimethoprim with Sulfamethoxazole INTERPRETATION Susceptible Staphylococcus aureus Linezolid INTERPRETATION Susceptible Staphylococcus aureus Doxycycline INTERPRETATION Susceptible Staphylococcus aureus Clindamycin INTERPRETATION Susceptible Staphylococcus aureus Erythromycin INTERPRETATION Resistant Staphylococcus aureus Oxacillin INTERPRETATION Resistant Staphylococcus aureus Cefazolin INTERPRETATION Resistant Staphylococcus aureus Ceftriaxone INTERPRETATION Resistant Cammie Borden DIRECTOR CARDIAC LAB MICROBIOLOGY - [facility] ORDERABLES Final Result MERY [address] Department [place] [address] documented in this encounter Visit Diagnoses Diagnosis Wound cellulitis documented in this encounter Care Teams Shelter Monitor Relationship Specialty Start Date End Date Laura Grider MD PCP - General 03/19/13 08/17/23 Cammie Woodruff OD [address] [place] [address] Optometry 03/13/19 documented as of this encounter
--- OUTSIDE RECORDS SUMMARY | 2024-03-08 00:44 | XMS_ITS | Encounter Summary ---
Author Organization [facility] Care Team Providers Care Rotary Operator Name Role Phone Laura Grider MD Primary Care Provider + Encounter Details Date Type Department Care Team (Latest Contact Info) Description 02/26/2019 Travel Social History Tobacco Use Types Packs/Day Years Used Date Smoking Tobacco: Former Cigarettes 1 39 1 971 - 2009 Smokeless Tobacco: Never Alcohol Use Standard Drinks/Week Comments No 0 (1 standard drink = 0.6 oz pur e alcohol) Comments Unknown Sex and Gender Information Value Date Recorded Sex Assigned at Not on file Legal Sex Female 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
--- OUTSIDE RECORDS SUMMARY | 2024-03-08 00:44 | XMS_ITS | Encounter Summary ---
Demographics Address [address] [place] [address] Mobile Phone Home Phone Email Address Preferred Language [place] Citizen Marital Status Baptism Affiliation Unknown Race White Ethnic Group Not or Lati no Author Organization [facility] Address [address] [facility] [address] [place] [address] Care Team Providers Care Sales Order Processor Name Role Phone Laura Grider MD Primary Care Provider + Cammie Woodruff OD Unavailable Encounter Details Date Type Department Care Team (Late st Contact Info) Description 10/26/2022 11:05 AM CDT Ancillary Procedure [facility] Medical [facility] Imaging at [address] [phone] Acute cough Social History Tobacco Use Types Packs/Day Years Used Date Smoking Tobacco: Former Cigarettes 1 39 1 971 - 2009 Smokeless Tobacco: Never Alcohol Use Standard Drinks/Week Comments No 0 (1 standard drink = 0.6 oz pur e alcohol) Comments Unknown Sex and Gender Information Value Date Recorded Sex Assigned at Not on file Legal Sex Female 3:03 AM DOCTOR OF CHIROPRACTIC Gender Identity Not on file Sexual Orientation Not on file documented as of this encounter Plan of Treatment Not on file documented as of this encounter Procedures Procedure Name Priority Date/Time Associated Diagnosis Comments XR CHEST PA LATERAL 2 VIEWS Schedule DELON, Read DELON (Appt Today, Awaiting Results) 10/26/2022 11:12 AM CDT Acute cough documented in this encounter Results * XR Chest PA Lateral 2 Views [...] D: ??10/26/2022 1:12 PM T: Report ID: [id number] Reading Location: ??[id number] Procedure Note Ned Asher MD - 10/26/2022 [...] Ned Asher M.D. MZ T: Report ID: [id number] Reading Location: [id number] [facility]yer CHILD AND ADOLESCENT PSYCHOLOGIST IMG XR PROCEDURES Final Result documented in this encounter Visit Diagnoses Diagnosis Acute cough documented in this encounter Care Teams Sales Order Processor Relationship Specialty Start Date End Date Laura Grider MD PCP - General 03/19/13 08/17/23 Cammie Woodruff OD [address] [place] [address] Optometry 03/13/19 documented as of this encounter
--- OUTSIDE RECORDS SUMMARY | 2024-03-08 00:44 | XMS_ITS | Encounter Summary ---
Author Organization [facility] Address [address] [place] [address] Phone Care Team Providers Care Guyline Operator Name Role Phone Laura Grider MD Primary Care Provider + Reason for Visit * Reason Onset Date Comments Appointment 12/12/2018 Encounter Details Date Type Department Care Team (Late st Contact Info) Description 12/12/2018 Telephone [facility] [address] [place], [place] [phone] Ernesto Crandall MD [address] [address] Appointment Social History Tobacco Use Types Packs/Day Years Used Date Smoking Tobacco: Former Alcohol Use Standard Drinks/Week Comments No 0 (1 standard drink = 0.6 oz pur e alcohol) Comments Unknown Sex and Gender Information Value Date Recorded Sex Assigned at Not on file 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 - 12/13/2018 1:22 PM CDT Spoke with pt she wants sx 01-21-19 told her I would schedule and call her back * Telephone Encounter - Marsha Tipton B.A. - 12/12/2018 11:08 AM CDT Patient was last seen in 08/2018 and now would like to schedule Dermatochalasis of left upper eyelidsurgery with Dr. Crandall. Call back #: [phone] (W) documented in this encounter Plan of Treatment Not on file documented as of this encounter Visit Diagnoses Not on filedocumented in this encounter Care Teams Guyline Operator Relationship Specialty Start Date End Date Laura Grider MD PCP - General 03/19/13 08/17/23 documented as of this encounter
--- OUTSIDE RECORDS SUMMARY | 2024-03-08 00:44 | XMS_ITS | Encounter Summary ---
Author Organization [facility] Address [address] [place] [address] Phone Care Team Providers Care Airline Station Agent Name Role Phone Laura Grider MD Primary Care Provider + Encounter Details Date Type Department Care Team (Late st Contact Info) Description 02/25/2019 Documentation [facility] Ophthalmology [address] [facility] [address] [place] [phone] Elisa Kaur B.A. 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 - 02/25/2019 3:32 PM CST Spoke with pt sx arrival is 12:45pm 4th floor cam Out pt Have ambulance driver Npo after midnight pov 03-06-19@ 11:45am DEVELOPER documented in this encounter Plan of Treatment Not on file documented as of this encounter Visit Diagnoses Not on filedocumented in this encounter Care Teams Airline Station Agent Relationship Specialty Start Date End Date Laura Grider MD PCP - General 03/19/13 08/17/23 documented as of this encounter
--- OUTSIDE RECORDS SUMMARY | 2024-03-08 00:44 | XMS_ITS | Encounter Summary ---
Author Organization [facility] Healthcare Address [address] [place] [address] Care Team Providers Care Set Up Mechanic Automatic Line Name Role Phone Laura Grider MD Primary Care Provider + Encounter Details Date Type Department Care Team (Late st Contact Info) Description 02/26/2019 2:10 PM MASTER PILOT - 02/26/2019 3:10 PM MASTER PILOT Surgery [facility] [address] [place] [id number] Ernesto Crandall MD [address] [phone] LEFT UPPER EYELID Surgery Details Date/Time Status Location OR Service Patient Class Case Cl ass Case Type Trauma Case? 02/26/2019 2:10 PM Posted [facility] CAM OR POD 4 N Ophthalmology Outpatient Elective Panel 1 Procedure LRB Anes Op Region Wound Class Comments LEFT UPPER EYELID Left Monitor Anesthesia Care Eye Class I - Clean Surgeon Surgeon Role Service Panel Ernesto Crandall MD Primary Ophthalmology 1 Milton Shelton MD Resident - Assisting Ophthalmol ogy 1 Case Notes Case moved from 03/12/19 to 02/26/19 per Oculeve via in-basket message. Case moved via lineup per Elisa. 02/25@0955 documented in this encounter Social History Tobacco Use Types Packs/Day Years Used Date Smoking Tobacco: Former Cigarettes 1 39 1 971 - 2009 Smokeless Tobacco: Never Alcohol Use Standard Drinks/Week Comments No 0 (1 standard drink = 0.6 oz pur e alcohol) Comments Unknown Sex and Gender Information Value Date Recorded Sex Assigned at Not on file Legal Sex Female 3:03 AM MASTER PILOT Gender Identity Not on file Sexual Orientation Not on file documented as of this encounter Last Filed Vital Signs Vital Sign Reading Time Taken Comments Blood Pressure 123/66 02/26/2019 1:30 PM MASTER PILOT Pulse 80 02/26/2019 1:30 PM MASTER PILOT Temperature 36 ??C (96.8 ??F) 02/26/2019 1:30 PM MASTER PILOT Respiratory Rate 16 02/26/2019 1:30 PM MASTER PILOT Oxygen Saturation 94% 02/26/2019 1:30 PM MASTER PILOT Inhaled Oxygen Concentration - - Weight 83.5 kg (184 lb) 02/25/2019 10:19 AM MASTER PILOT Height 170.2 cm (5' 7 ) 02/25/2019 10:19 AM MASTER PILOT Body Mass Index 28.82 02/25/2019 10:19 AM MASTER PILOT documented in this encounter Discharge Instructions * Discharge Instructions* Ernesto Crandall MD - 02/26/2019 4:02 PM MASTER PILOT Instructions: - Avoid physical exertion and exercise. [...] Please call the office or after-hours exchange ([phone]) if you experience: - Severe pain (mild discomfort is common). - Persistent bleeding unrelieved with gentle pressure (it is normal to have an occasional drop of blood coming from the incision or the eye for the first week after surgery). - Visual loss (mild blurring or difficulty reading is common after surgery, especially if there is ointment in your eye). ER PILOT documented in this encounter Medications at Time [...] Ernesto Crandall MD at 02/26/2019 3:00 PM MASTER PILOT ER PILOT ER PILOT Source Note - Enresto Crandall MD - 02/26/2019 9:47 AM MASTER PILOT Images from the original note were not [...] Start date: 1970 Last attempt to quit: 2009 Years since quittin.0 ??? Smokeless tobacco: Never Used Substance and Sexual Activity ??? Alcohol use: No ??? Drug use: Not Currently Types: Marijuana ??? Sexual activity: None Lifestyle ??? Physical activity: Days per week: None Minutes per session: None ??? Stress: None Relationships ??? Social connections: Talks on phone: None Gets together: None Attends alevism service: None Active member of club or organization: None Attends meetings of clubs or organizations: None Relationship status: None ??? Intimate partner violence: Fear of current or ex partner: None Emotionally abused: None Physically abused: None Forced sexual activity: None Other Topics Concern ??? None Social History Narrative ??? None ER PILOT * Ernesto Crandall MD - 02/26/2019 9:47 [...] see more clearly. ?? Last edited by Elsia Beauchamp B.A. on 08/22/2018 ??8:26 AM. (History) [...] mouth nightly , Disp: , Rfl: ??? ADRIAN BALAANITA U-100 INSULIN 100 unit/mL (3 mL) insulin [...] Bilateral 11/2018 ??? COLONOSCOPY 2016 ??? HYSTERECTOMY 1989 ??? KNEE ARTHROPLASTY Left 2007 ??? KNEE [...] Start date: 1970 Last attempt to quit: 2009 Years since quittin.0 ??? Smokeless tobacco: Never Used Substance and Sexual Activity ??? Alcohol use: No ??? Drug use: Not Currently Types: Marijuana ??? Sexual activity: None Lifestyle ??? Physical activity: Days per week: None Minutes per session: None ??? Stress: None Relationships ??? Social connections: Talks on phone: None Gets together: None Attends alevism service: None Active member of club or organization: None Attends meetings of clubs or organizations: None Relationship status: None ??? Intimate partner violence: Fear of current or ex partner: None Emotionally abused: None Physically abused: None Forced sexual activity: None Other Topics Concern ??? None Social History Narrative ??? None ER PILOT documented in this encounter Miscellaneous Notes * Op Note - Ernesto Crandall MD - 02/26/2019 3:24 PM CST Operative Note Attending Surgeon: Ernesto Crandall MD Surgeon(s): MD Milton López MD Surgical Team: Digital Proofing And Platemaker: Nader Cadet RN Scrub: ST Zac DATE [...] then excised. Bipolar cautery was applied throughout the case to maintain hemostasis. The orbital septa were [...] the entire procedure (including opening and closing). ER PILOT * Perioperative Nursing Note - Tracie You RN - 02/25/2019 10:26 AM CST [facility] Perioperative Nursing Note Telephone Preoperative Evaluation ([facility]) - TELEPHONE ONLY, NO PHYSICAL EXAM [...] Directive: Patient does not have advance directive Communication/Fire Patrol Needs Communication Needs: None Patient's Preferred Language: Libyan Assistive Devices/DME: Oxygen Discharge Planning Type of Residence: Private residence Living Arrangements: Spouse/significant other Support Systems: Spouse/significant other Patient expects to be discharged to:: Private residence(Laminating Machine Operator Helper and Caregiver: or friend) ADDITIONAL COMMENTS/ FOLLOW UP ER PILOT * Pre-Procedure Instructions - Tracie You RN [...] 2 days of your surgery, please call [phone] and ask for your surgeon's office Dr. Crandall. ER PILOT * Pre-Procedure Instructions - Irma Villegas NP - 02/25/2019 10:20 AM CST [facility] CPAP Clinic Location: [facility] The night before your surgery: [...] bowel prep or special diet before surgery ER PILOT documented in this encounter Plan of Treatment Not on file documented as of this encounter Procedures Procedure Name Priority Date/Time Associated Diagnosis Comments BLEPHAROPLASTY UPPER EYELID 02/26/2019 3:16 PM MASTER PILOT Dermatochalasis of left upper eyelid Case Notes Case moved from 03/12/19 to 02/26/19 per Elisa via in-basket message. Case moved via lineup per Elisa. SR 02/25@0955 POCT GLUCOSE DEVICE Routine 02/26/2019 1 :37 PM MASTER PILOT documented in this encounter Results * POCT glucose (02/26/2019 1:37 PM MASTER PILOT) Glucose, POC 137 70 - 199 mg/dL MERY LUCIANO Blood specimen (specimen) 02/26/2019 1:37 PM MASTER PILOT 02/26/2019 1:37 PM MASTER PILOT us Ernesto Crandall MD LAB POCT ORDERABLES - DEVICE Final [facility] Department [place] [address] documented in this encounter Visit Diagnoses Diagnosis Dermatochalasis of left upper eyelid- Primary Dermatochalasis of left upper eyelid Dermatochalasis of left upper eyelid documented in [...] PO., Indications: PainIndications:Pain Given 02/26/2019 4:18 PM MASTER PILOT 1,000 mg Lactated Ringer's (LR) infusion 30 mL/hr, intravenous, Continuous, Starting on Mon02/26/19 at 1400, Pre-Op New Bag 02/26/2019 1:39 PM MASTER PILOT 30 mL/hr 30 mL/hr lidocaine 1%, bupivicaine 0.375%, EPINEPHrine 0.3 mg (1:75,000) (Dr. Crandall's) preservative free ophthalmic solution (total volume 22.5 mL) As needed, Starting on Mon02/26/19 at 1526, Intra-Op Given 02/26/2019 3:26 PM MASTER PILOT 3 mL sodium chloride 0.9 % irrigation As needed, Starting on Mon02/26/19 at 1526, Intra-Op Given 02/26/2019 3:26 PM MASTER PILOT 1,000 mL Surgical Site sodium chloride 0.9% flush 0.5-20 mL 0.5-20 mL, intra-catheter, As needed, line care, Starting on Mon02/26/19 at 1329, Pre-Op, Flush volume based on line type and size. Flush before and after each use. tetracaine (PF) (ALTACAINE) 0.5 % ophthalmic solution As needed, Starting on Mon02/26/19 at 1526, Intra-Op, Indications: Administration of Corneal AnesthesiaIndications:Adm inistration of Corneal Anesthesia Given 02/26/2019 3:26 PM MASTER PILOT 2 drops documented in this encounter Discontinued Medications Medication [...] Recently Administered Medications Times are shown in MASTER PILOT. Scheduled Medication Order 02/24/2019 02/25/2019 02/26/2019 acetaminophen [...] 02/26/2019 Lactated Ringer's (LR) infusion 1 0 naloxone (NARCAN) 0.4 mg/mL injection 0.04-0.4 mg 1 02/26/2019 ondansetron (ZOFRAN) injection 4 mg 1 02/26 oxyCODONE (ROXICODONE) tablet 5 mg 1 2019 sodium chloride 0.9% flush 0.5-20 mL 1 08/2019 documented in this encounter Care Teams Set Up Mechanic Automatic Line Relationship Specialty Start Date End Date Laura Grider MD PCP - General 03/19/13 08/17/23 documented as of this encounter
--- OUTSIDE RECORDS SUMMARY | 2024-03-08 00:44 | XMS_ITS | Encounter Summary ---
Author Organization [facility] Facility Care Team Providers Care Agricultural Economics Professor Name Role Phone Laura Grider MD Primary Care Provider + Encounter Details Date Type Department Care Team (Latest Contact Info) Description 01/03/2019 Travel Social History Tobacco Use Types Packs/Day Years Used Date Smoking Tobacco: Former Cigarettes 1.8 39 1 971 - 2010 Smokeless Tobacco: Former Alcohol Use Standard Drinks/Week Comments No 0 (1 standard drink = 0.6 oz pur e alcohol) Comments Unknown Sex and Gender Information Value Date Recorded Sex Assigned at Not on file Legal Sex Female 3:03 AM [employer] Gender Identity Not on file Sexual Orientation Not on file documented as of this encounter Plan of Treatment Not on file documented as of this encounter Visit Diagnoses Not on filedocumented in this encounter Care Teams Agricultural Economics Professor Relationship Specialty Start Date End Date Laura Grider MD PCP - General 03/19/13 08/17/23 documented as of this encounter
--- OUTSIDE RECORDS SUMMARY | 2024-03-08 00:44 | XMS_ITS | Encounter Summary ---
Author Organization [facility] Healthcare Address [address] [place] [address] Care Team Providers Care Telecom Specialist Name Role Phone Cammie Woodruff OD Unavailable [phone] Carline Ramires NP Primary Care Provider [phone] Osmany Foster MD Unavailable [phone] Reason for Referral * Consultation (Routine) - Closed Specialty Diagnoses / Procedures Referred By Contac t Referred To Contact Wound Care Diagnoses Wound cellulitis Carline Ramires NP [address] [place] [address] Phone: tel: fax: External Order Referral ID Status Reason Start Date Expiration Date V isits Requested Visits Authorized [id number] Closed Specialty Services Required 08/18/2023 09/16/2024 1 1 Question Answer Please select the performing region: External Order [171] # of visits: 1 Comments [facility] [address] [place], [place], [place] * Consultation (Routine) - Closed Specialty Diagnoses / Procedures Referred By Contac t Referred To Contact Psychiatry Diagnoses Attention deficit hyperactivity disorder, predominantly inattentive type Bipolar disorder, current episode mixed, mild (CMS/HCC) (HCC) NICOLASA (generalized anxiety disorder) Carline Ramires NP [address] [place] [address] Phone: tel: fax: David Holman MD [address] [place] [address] Phone: tel: fax: Referral ID Status Reason Start Date Expiration Date V isits Requested Visits Authorized [id number] Closed Specialty Services Required 08/18/2023 12/20/2023 1 1 Question Answer Please select the performing region: External Order [171] To provider: DAVID HOLMAN [[id number]] # of visits: 1 * MRI/CAT/PET Scan (Routine) - Closed Specialty Diagnoses / Procedures Referred By Contac t Referred To Contact Diagnoses Personal history of nicotine dependence Procedures CT Lung Cancer Screening Carline Ramires NP [address] [address] Phone: tel: fax: External Order Referral ID Status Reason Start Date Expiration Date Visits Re quested Visits Authorized [id number] Closed 08/18/2023 09/16/2024 1 1 * Diagnostic Imaging (Routine) - Closed Specialty Diagnoses / Procedures Referred By Contmerna erazo Referred To Contact Diagnoses Encounter for osteoporosis screening in asymptomatic postmenopausal patient Procedures Dexa Axial Skeleton Bone Density 1 Or 2 Site Carline Ramires NP 2 [facility] [address] [place] [address] Phone: tel: fax: External Order Referral ID Status Reason Start Date Expiration Date Visits Re quested Visits Authorized [id number] Closed 08/18/2023 09/16/2024 1 1 Reason for Visit * Reason Comments New Patient Pt states to [facility]. Pt states she had cellulitis on her right leg that won't completely heal. Pt states she also has a sore on the bottom of her belly she has been treating with the same stuff they gave her to treat her leg. * Consultation (Urgent) - Pending Review Specialty Diagnoses / Procedures Referred By Contmerna t Referred To Contact Family Medicine Diagnoses Wound cellulitis Nicolle Sawyer NP [address] [place], [place] [id number] Phone: tel: Onofre Xavier MD [address] [place] [address] Phone: tel: fax: Referral ID Status Reason Start Date Expiration Date Visits Requested Visits Authorized [id number] Pending Review Specialty Services Required 08/14/2023 09/12/2024 1 1 Encounter Details Date Type Department Care Team (Latest Contact Info) Description 08/18/2023 10:30 AM CDT Office Visit [facility] Primary Care at [address] [phone] Carline Ramires NP [address] [place] [id number] Wound cellulitis (Primary Dx); Type 2 diabetes mellitus without complication, with long-term current use of insulin (CMS/HCC) (HCC); Attention deficit hyperactivity disorder, predominantly inattentive type; Encounter for osteoporosis screening in asymptomatic postmenopausal patient; Personal history of nicotine dependence; Bipolar disorder, current episode mixed, mild (CMS/HCC) (HCC); Essential hypertension; Vitamin D deficiency; Encounter for hepatitis C screening test for low risk patient; NICOLASA (generalized anxiety disorder) Social History Tobacco Use Types Packs/Day Years [...] on file Legal Sex 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 Gender Identity Not on file Sexual Orientation Not on file documented as of this encounter Last Filed Vital Signs Vital Sign Reading Time Taken Comments Blood Pressure 130/80 08/18/2023 10:19 AM CDT Pulse 98 08/18/2023 10:19 AM CDT Temperature 37 ??C (98.6 ??F) 08/18/2023 10:19 AM CDT Respiratory Rate - - Oxygen Saturation 96% 08/18/2023 10:19 AM CDT Inhaled Oxygen Concentration - - Weight 82.6 kg (182 lb) 08/18/2023 10:19 AM CDT Height 170.2 cm (5' 7 ) 08/18/2023 10:19 AM CDT Body Mass Index 28.51 08/18/2023 10:19 AM CDT documented in this encounter Patient Instructions * Patient Instructions* Carline Ramires NP - 08/18/2023 10:30 AM CDT Images from the original note were not included. Wound Center: [facility] [address], [place], [place] Psychiatrist: sophia [address] [place] [address] [address], [place] [address] Welcome to [facility]! Thank you for choosing us for you health care needs! Carline Ramires DNP and SRIRAM Cason documented in this encounter Ordered Prescriptions Prescription Sig Dispense Quantity Refills Last Filled Start Date End Date clindamycin (CLEOCIN) 150 mg capsule Take 1 capsule (150 mg total) by mouth 3 (three) times a day for 10 days 30 capsule 08/18/2023 4 clindamycin (CLEOCIN) 300 mg capsule Take 1 capsule (300 mg total) by mouth 3 (three) times a day for 10 days 30 capsule 08/18/2023 4 documented in this encounter Progress Notes * Carline Ramires NP - 08/18/2023 10:30 AM CDT Images from the original note were not included. Patient ID: Yaneth Duarte is a 67 y.o. female. Assessment/Plan Diagnoses and all orders for this visit: Wound cellulitis (Primary) Assessment & Plan: Chronic at this point. Treat with Clindamycin and referral to wound clinic. Culture showed MRSA. Orders: - Ambulatory referral to Family Practice - Ambulatory referral to Wound Clinic; Future Type 2 diabetes mellitus without complication, with long-term current use of insulin (CMS/HCC) (FORM[facility]) Assessment & Plan: Patient states she follows with [facility]o at [place], patient unable to recall the provider's name. No changes to medication today, updated labs ordered. Orders: - Hemoglobin A1c; Future - Lipid panel; Future - Thyroid Function Gentry; Future - Albumin Creatinine Ratio, Urine; Future Attention deficit hyperactivity disorder, predominantly inattentive type Assessment & Plan: Referral to Psychiatry placed. Orders: - Ambulatory referral to Psychiatry; Future Encounter for osteoporosis screening in asymptomatic postmenopausal patient - Dexa Axial Skeleton Bone Density 1 Or 2 Site; Future Personal history of nicotine dependence - CT Lung Cancer Screening; Future Bipolar disorder, current episode mixed, mild (CMS/HCC) ([facility]) Assessment & Plan: Patient's mood stable on current regimen, discussed with the patient that we should have her see Psychiatry. Referral placed. Discussed my hesitancy to prescribe Alprazolam. Orders: - Ambulatory referral to Psychiatry; Future - Drugs of Abuse Screen, Urine with Reflex Confirmation; Future Essential hypertension Assessment & Plan: BP stable in office, continuing Toprol XL. Updated labs ordered. Orders: - CBC with auto differential; Future - Comprehensive metabolic panel; Future - Lipid panel; Future - Thyroid Function Gentry; Future Vitamin D deficiency - Vitamin D 25 hydroxy; Future Encounter for hepatitis C screening test for low risk patient - Hepatitis C antibody Blood; Future NICOLASA (generalized anxiety disorder) - Ambulatory referral to Psychiatry; Future Other orders - clindamycin (CLEOCIN) 300 mg capsule; Take 1 capsule (300 mg total) by mouth 3 (three) times a day for 10 days - clindamycin (CLEOCIN) 150 mg capsule; Take 1 capsule (150 mg total) by mouth 3 (three) times a day for 10 days Follow up 3 Months Chief Complaint New Patient (Pt states to establish care. Pt states she had cellulitis on her right leg that won't completely heal. Pt states she also has a sore on the bottom of her belly she has been treating withthe same stuff they gave her to treat her leg. ) New patient here to establish care. Patient here today to discuss chronic conditions and discuss labs/have labs ordered. Patient cut her right falcon on a piece of cardboard x 5 weeks ago. Went to [facility] on [facility]03 and was treated with Keflex, culture came back and showed staph. Abx changed to Bactrim but had adverse reaction to it (joint pains). She was never re-started on another abx. Review of Systems Respiratory: Negative for shortness of breath. Cardiovascular: Negative for chest pain. Skin: Positive for wound. Psychiatric/Behavioral: Negative for suicidal ideas. BP 130/80 (BP Location: Right arm, Patient Position: Sitting) Pulse 98 Temp 37 ??C (98.6 ??F) (Temporal) Ht 170.2 cm (5' 7 ) Wt 82.6 kg (182 lb) SpO2 96% BMI 28.51 kg/m?? Physical Exam Constitutional: Appearance: Normal appearance. HENT: Head: Normocephalic. Right Ear: External ear normal. Left Ear: External ear normal. Eyes: Extraocular Movements: Extraocular movements intact. Cardiovascular: Rate and Rhythm: Normal rate and regular rhythm. Pulmonary: Effort: Pulmonary effort is normal. Breath sounds: Normal breath sounds. Skin: General: Skin is warm and dry. Findings: Wound (right lower falcon (see media tab), lower abdomen wound (see media tab)) present. Neurological: General: No focal deficit present. Mental Status: She is alert and oriented to person, place, and time. Psychiatric: Mood and Affect: Mood normal. Behavior: Behavior normal. Carline Ramires NP Cosigned by Onofre Xavier MD at 08/25/2023 3:48 PM CDT documented in this encounter Miscellaneous Notes * Assessment & Plan Note - Carline Ramires NP - 08/21/2023 7:59 AM CDTAssociated Problem(s): Attention deficit hyperactivity disorder, predominantly inattentive type Referral to Psychiatry placed. * Assessment & Plan Note - Carline Ramires NP - 08/21/2023 7:59 AM CDTAssociated Problem(s): Bipolar disorder (HCC) Patient's mood stable on current regimen, discussed with the patient that we should have her see Psychiatry. Referral placed. Discussed my hesitancy to prescribe Alprazolam. * Assessment & Plan Note - Carline Ramiers NP - 08/21/2023 7:58 AM CDTAssociated Problem(s): Diabetes mellitus (HCC) Patient states she follows with Sophie at [place], patient unable to recall the provider's name. No changes to medication today, updated labs ordered. * Assessment & Plan Note - Carline Ramires NP - 08/21/2023 7:57 AM CDTAssociated Problem(s): Essential hypertension BP stable in office, continuing Toprol XL. Updated labs ordered. * Assessment & Plan Note - Carline Ramires NP - 08/21/2023 7:56 AM CDTAssociated Problem(s): Wound cellulitis Chronic at this point. Treat with Clindamycin and referral to wound clinic. Culture showed MRSA. documented in this encounter Plan of Treatment Scheduled Orders Name Type Priority Associated Diagnoses Orde r Schedule Dexa Axial Skeleton Bone Density 1 Or 2 Site Imaging Schedule Routine, Read Routine (OP Routine) Encounter for osteoporosis screening in asymptomatic postmenopausal patient Expected: 08/18/2023, Expires: 08/17/2024 CT Lung Cancer Screening Imaging Schedule Routine, Read Routine (OP Routine) Personal history of nicotine dependence 1 Occurrences starting 08/18/2023 until 10/17/2024 Scheduled Referrals Name Type Priority Associated Diagnoses Orde r Schedule Ambulatory referral to Psychiatry Outpatient Referral Routine Attention deficit hyperactivity disorder, predominantly inattentive type Bipolar disorder, current episode mixed, mild (CMS/HCC) (HCC) NICOLASA (generalized anxiety disorder) Expected: 09/01/2023 (Approximate), Expires: 08/17/2024 Ambulatory referral to Wound Clinic Outpatient Referral Routine Wound cellulitis Expected: 09/01/2023 (Approximate), Expires: 08/17/2024 documented as of this encounter Results * Albumin Creatinine Ratio, Urine (08/18/2023 11:21 [...] ORDERABLES Final Resul t Performing Organization Address City/State/[facility] Co de Phone Number MERY [phone] [address] Department of Laboratories [place], [place] [id number] * (ABNORMAL) Drugs of Abuse Screen, Urine [...] 2022. Barbiturates, ur Not Detected CutOff 200ng/mL CERNER Comment: Interpretive Data - Barbiturates: ??Samples containing greater than 200 ng/mL secobarbital or other cross-reacting barbiturate compounds are reported as positive. ??False positive and false negative results are possible. Confirmatory testing required for definitive results. Current Interpretive Data was last reviewed 2022. Benzodiazepines, ur Not Detected CutOff 100ng/mL CERNER Comment: Interpretive Data - Benzodiazepines: ??Samples containing greater than 100 ng/mL nordiazepam or other cross-reacting compounds are reported as positive. False positive and false negative results are possible. Confirmatory testing required for definitive results. Current Interpretive Data was last reviewed 2022. Cannabinoids, ur Not Detected CutOff 50 ng/mL CERNER Comment: Interpretive Data - Cannabinoids: ??Samples containing greater than 50 ng/mL delta-9 THC -COOH or other cross-reacting compounds are reported as positive. ??False positive and false negative results are possible. ??Confirmatory testing required for definitive results. Current Interpretive Data was last reviewed 2022. Cocaine, ur Not Detected CutOff 150ng/mL CERNER Comment: Interpretive Data - Cocaine: ??Samples containing greater than 150 ng/mL benzoylecgonine or other cross-reacting compounds are reported as positive. False positive and false negative results are possible. Confirmatory testing required for definitive results. Current Interpretive Data was last reviewed 2022. Fentanyl, Ur Not Detected CutOff 5 ng/mL CERNER Comment: Interpretive Data - Fentanyl: ?? Samples containing greater than 5 ng/mL norfentanyl, fentanyl, or other cross-reacting fentanyl compounds are reported as positive. False positive and false negative results are possible. Confirmatory testing required for definitive results. Current Interpretive Data was last reviewed 2023. Methadone, ur Not Detected CutOff 300ng/mL CERNER Comment: Interpretive Data - Methadone: ??Samples containing greater than 300 ng/mL d,l-methadone or other cross-reacting compounds are reported as positive. ??False positive and false negative results are possible. Confirmatory testing required for definitive results. Current Interpretive Data was last reviewed 2022. Opiates, ur Not Detected CutOff 300ng/mL CERNER Comment: Interpretive Data - Opiates: ??Samples containing greater than 300 ng/mL morphine or other cross-reacting compounds are reported as positive. ??False positive and false negative results are possible. Confirmatory testing required for definitive results. Current Interpretive Data was last reviewed 2022. Oxycodone, ur Screen Positive, presumptive (A) CutOff 100ng/mL MERY Comment: Interpretive Data - Oxycodone: ??Samples containing greater than 100 ng/mL oxycodone or other cross-reacting compounds are reported as ??positive. ??False positive and false negative results are possible. Confirmatory testing required for definitive results. Current Interpretive Data was last reviewed 2022. Phencyclidine, ur Not Detected CutOff 25 ng/mL MERY Comment: Interpretive Data - Phencyclidine: ??Samples containing greater than 25 ng/mL phencyclidine or other cross-reacting compounds are reported as positive. ??False positive and false negative results are possible. Confirmatory testing required for definitive results. Current Interpretive Data was last reviewed 2022. 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 MACHINE OPERATOR LAB BLOOD ORDERABLES Final Resul t Performing Organization Address [facility] de Phone Number [facility] [phone] [address] [facility] [place] [address] * Thyroid Function Gentry (08/18/2023 11:21 AM CDT) Pathologist [facility] TSH 1.42 0.30 - 4.20 mcIUnit/mL Blood 08/18/2023 11:2 1 AM CDT 08/18/2023 4:02 PM CDT us Carline Ramires DUMPING MACHINE OPERATOR LAB BLOOD ORDERABLES Final Resul t Performing Organization Address [facility] de Phone Number [facility] [phone] [address] [facility] [place] [address] * (ABNORMAL) Lipid panel (08/18/2023 11:21 AM CDT) Pathologist [facility] Cholesterol 126 30 - 199 mg/dL Comment: [...] 2017. LDL, calculated 64 <=129 mg/dL MERY [place] Comment: Interpretive Data Ages [...] on 2017. Non-HDL Cholesterol 96 mg/dL MERY Comment: Interpretive Data Ages < [...] LAB BLOOD ORDERABLES Final Resul t MERY [address] [address] [place] [address] * Hepatitis C antibody Blood (08/18/2023 11:21 [...] PM CDT us Carline Ramires NP LAB MICROBIOLOGY - GENERAL ORDER JEREMIAH Final Result Performing Organization Address [facility] de Phone Number MERY [phone] [address] [facility] [place] [address] * (ABNORMAL) Hemoglobin A1c (08/18/2023 11:21 AM CDT) Hgb A1C 6.8(H) 4.0 - 5.6 % Estimated Average Glucose 148 mg/dL MERY Comment: The ADA recommends reporting an estimated Average Glucose (eAG) with all Hemoglobin A1c results using the equation derived from a study of 507 normal and diabetic adults. ??Minority populations were underrepresented and children were not included. ?? (Diabetes Care 31:3766-5567, 2008). ??The eAG is not equivalent to a fasting glucose. Blood 08/18/2023 11:2 1 AM CDT 08/18/2023 4:02 PM CDT us Carline Ramires NP LAB BLOOD ORDERABLES Final Resul t Performing Organization Address [facility] de Phone Number PHILMARY [phone] [address] [facility] [place] [address] * (ABNORMAL) Comprehensive metabolic panel (08/18/2023 11:21 AM CDT) Sodium 143 135 - 145 mmol/L Potassium, pl 4.0 3.3 - 4.9 mmol/L [facility] Chloride 104 97 - 110 mmol/L [facility] CH CO2 24 22 - 32 mmol/L [facility] Anion gap 15 2 - 15 mmol/L [facility] BUN 16 6 - 25 mg/dL [facility] Creatinine 0.56(L) 0.60 - 1.10 mg/dL [facility] Glucose 94 70 - 199 mg/dL [facility] Comment: Interpretive Data Fasting glucose >/= 126 [...] classification and Diagnosis of Diabetes Diabetes Care 202; 46: S19-S40. Current interpretive data was last revised 2022. Calcium 9.7 8.5 - 10.3 mg/dL [facility] CH Bilirubin, total 0.6 0.1 - 1.2 mg/dL [facility] CH Protein, pl 7.3 6.5 - 8.5 g/dL [facility] CH Albumin 3.9 3.5 - 5.0 g/dL [facility] CH Alk phos 89 40 - 130 Units/L [facility] ALT 33 7 - 45 Units/L [facility] AST 42 10 - 45 Units/L [facility] CH Blood 08/18/2023 11:2 1 AM CDT 08/18/2023 4:02 PM CDT Carline Ramires NP LAB BLOOD ORDERABLES Final Resul t PHILMARY [phone] [address] [place] [address] * (ABNORMAL) CBC with auto differential (08/18/2023 11:21 AM CDT) WBC 12.4(H) 3.8 - 9.9 K/cumm Hgb 13.6 11.9 - 15.5 g/dL [facility] CH Hct 42.6 35.6 - 45.5 % [facility] CH Plt 226 150 - 400 K/cumm [facility] CH MPV 11.9 9.1 - 12.3 fL [facility] CH RBC 4.64 3.90 - 5.20 M/cumm [facility] CH MCV 91.8 81.3 - 96.4 fL [facility] CH MCH 29.3 27.1 - 33.3 pg [facility] CH MCHC 31.9(L) 32.3 - 35.7 g/dL [facility] RDW CV 14.7 11.1 - 14.9 % [facility] RDW SD 49.2(H) 35.7 - 48.1 fL [facility] NRBC abs 0.00 0.00 - 0.01 K/cumm [facility] Blood 08/18/2023 11:2 1 AM CDT 08/18/2023 4:02 PM CDT us Carline Ramires NP LAB BLOOD ORDERABLES Final Resul t [facility] [address] [address] [place] [address] documented in this encounter Visit Diagnoses Diagnosis Wound cellulitis- Primary Type 2 diabetes mellitus without complication, with long-term current use of insulin (CMS/HCC) (HCC) Attention deficit hyperactivity disorder, predominantly inattentive type Encounter for osteoporosis screening in asymptomatic postmenopausal patient Personal history of nicotine dependence Bipolar disorder, current episode mixed, mild (CMS/HCC) (HCC) Essential hypertension Unspecified essential hypertension Vitamin D deficiency Encounter for hepatitis C screening test for low risk patient NICOLASA (generalized anxiety disorder) Generalized anxiety disorder Type 2 diabetes mellitus without complication, with long-term current use of insulin (CMS/HCC) (HCC) Bipolar disorder, current episode mixed, mild (CMS/HCC) (HCC) Vitamin D deficiency Essential hypertension Unspecified essential hypertension Encounter for hepatitis C screening test for low risk patient documented in this encounter Discontinued Medications Medication Sig Discontinue Reason Start Date End Da te azithromycin (ZITHROMAX) 250 mg tabletIndications:Lower respiratory infection (e.g., bronchitis, pneumonia, pneumonitis, pulmonitis) Take 2 tablets the first day, then 1 tablet daily for 4 days. 10/26/2022 08/18/2023 cariprazine (Vraylar) 4.5 mg capsule Take 1 capsule every day by oral route. 03/08/2023 08/18/2023 celecoxib (CeleBREX) 200 mg capsuleIndications:Osteo arthritis Take 200 mg by mouth daily as needed for pain 08/18/2023 ciprofloxacin (CIPRO) 500 mg tablet Take 1 tablet (500 mg total) by mouth 2 (two) times a day 07/20/2023 08/18/2023 cyanocobalamin (Vitamin B-12) 1,000 mcg/mL injection 1 mL every 30 (thirty) days 08/18/2023 desvenlafaxine 100 mg tablet extended release 24hrIndications:Bipolar Disorder Take 100 mg by mouth every morning 08/18/2023 dextroamphetamine-amphet amine (ADDERALL) 20 mg tabletIndications:Attent ion-Deficit Hyperactivity Disorder Take 1 tablet (20 mg total) by mouth 2 (two) times a day 08/16/2018 08/18/2023 erythromycin (ILOTYCIN) ophthalmic ointment Apply ointment to left eyelid incisions [address] ointment inside the eye for irritation. 02/26/2019 08/18/2023 eszopiclone (LUNESTA) 2 mg tablet 05/01/2023 08/18/2023 levoFLOXacin (LEVAQUIN) 750 mg tablet 06/05/2023 08/18/2023 lidocaine (Lidoderm) 5 % Apply 1 patch topically as needed 08/18/2023 liraglutide (VICTOZA) 0.6 mg/0.1 mL (18 mg/3 mL) injectionIndications:typ e 2 diabetes mellitus Inject 1.6 mg under the skin every morning Indications: type 2 diabetes mellitus 08/18/2023 mupirocin (BACTROBAN) 2 % ointmentIndications:Woun d cellulitis Apply topically 3 (three) times a day 08/04/2023 08/18/2023 nitrofurantoin monohydrate (MACROBID) 100 mg capsule 10/19/2022 08/18/2023 nystatin 100,000 unit/mL suspension TAKE 10 ML BY MOUTH 4 TIMES A DAY 08/18/2023 oxyCODONE-acetaminophen (PERCOCET) 10-325 mg per tablet Take 1 tablet by mouth as needed 01/08/2019 08/18/2023 oxygenIndications:Dyspne a Administer 2 L/min into each nostril nightly 08/18/[address] (PROTONIX) 40 mg EC tablet 07/27/2022 08/18/2023 peg 400-propylene glycol (SYSTANE) 0.4-0.3 % ophthalmic solutionIndications:Dry Eye Administer 1 drop into both eyes as needed 08/18/2023 potassium 99 mg tabletIndications:leg cramps Take 1 tablet (99 mg total) by mouth nightly 08/18/2023 predniSONE (DELTASONE) 20 mg tablet 10/18/2022 08/18/2023 sulfamethoxazole-trimeth oprim (Bactrim DS) 800-160 mg per tablet Take 1 tablet by mouth 2 (two) times a day for 10 days 08/11/2023 08/18/2023 documented as of this encounter Historical Medications * This list may reflect changes made after this encounter. 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
--- OUTSIDE RECORDS SUMMARY | 2024-03-08 00:44 | XMS_ITS | Encounter Summary ---
Author Organization [facility] Healthcare Address [address] [place] [address] Care Team Providers Care Car Packer Name Role Phone Laura Grider MD Primary Care Provider + Cammie Woodruff OD Unavailable Encounter Details Date Type Department Care Team (Late st Contact Info) Description 08/11/[address] [address] Rylee Pagan, RAT EXTERMINATOR [address] [facility] [address] [place] [id number] Social History Tobacco Use Types Packs/Day Years Used Date Smoking Tobacco: Former Cigarettes 1 39 1 971 - 2010 Smokeless Tobacco: Never Alcohol Use Standard Drinks/Week Comments No 0 (1 standard drink = 0.6 oz pur e alcohol) Comments Unknown Sex and Gender Information Value Date Recorded Sex Assigned at Not on file Legal Sex Female 3:03 AM POLISHING WHEEL REPAIRER Gender Identity Not on file Sexual Orientation Not on file documented as of this encounter Ordered Prescriptions Prescription Sig Dispense Quantity Refills Last Filled Start Date End Date sulfamethoxazole-t rimethoprim (Bactrim DS) 800-160 mg per tablet Take 1 tablet by mouth 2 (two) times a day for 10 days 20 tablet 08/11/2023 08/18/2023 sulfamethoxazole-t rimethoprim (Bactrim DS) 800-160 mg per tablet Take 1 tablet by mouth 2 (two) times a day for 10 days 20 tablet 08/11/2023 08/11/2023 documented in this encounter Progress Notes * Rylee Pagan, KIM - 08/11/2023 3:51 PM CDT Patient requesting meds be sent to [facility]. documented in this encounter Plan of Treatment Not on file documented as of this encounter Visit Diagnoses Not on filedocumented in this encounter Discontinued Medications Medication Sig Discontinue Reason Start Date End Da te sulfamethoxazole-trimeth oprim (Bactrim DS) 800-160 mg per tablet Take 1 tablet by mouth 2 (two) times a day for 10 days Reorder 08/11/2023 08/11/2023 documented as of this encounter Additional Health Concerns Infection Onset Date Last Indicated Resolved Time MRSA Comment:R leg wound 08/04/23 08/04/2023 08/04/2023 01/31/2024 3 :05 AM POLISHING WHEEL REPAIRER documented as of this encounter Care Teams Car Packer Relationship Specialty Start Date End Date Laura Grider MD PCP - General 03/19/13 08/17/23 Cammie Woodruff OD [address] [place] [address] Optometry 03/13/19 documented as of this encounter
--- OUTSIDE RECORDS SUMMARY | 2024-03-08 00:44 | XMS_ITS | Encounter Summary ---
Author Organization [facility] Address [address] [place] [address] Phone Care Team Providers Care Tacking Stitch Remover Name Role Phone Laura Grider MD Primary Care Provider + Encounter Details Date Type Department Care Team (Late st Contact Info) Description 06/19/2018 Telephone [facility] Ophthalmology [facility] Health 6th [place] [address] Swathi Figueroa B.A. Social History Tobacco Use Types Packs/Day Years Used Date Smoking Tobacco: Former Alcohol Use Standard Drinks/Week Comments No 0 (1 standard drink = 0.6 oz pur e alcohol) Comments Unknown Sex and Gender Information Value Date Recorded Sex Assigned at Not on file Legal Sex Female 3:03 AM MANAGER STATISTICS Gender Identity Not on file Sexual Orientation Not on file documented as of this encounter Miscellaneous Notes * Telephone Encounter - Swathi Figueroa B.A. - 12/28/2018 12:46 PM CST . GER STATISTICS documented in this encounter Plan of Treatment Not on file documented as of this encounter Visit Diagnoses Not on filedocumented in this encounter Care Teams Tacking Stitch Remover Relationship Specialty Start Date End Date Laura Grider MD PCP - General 03/19/13 08/17/23 documented as of this encounter
--- OUTSIDE RECORDS SUMMARY | 2024-03-08 00:44 | XMS_ITS | Encounter Summary ---
Author Organization [facility] Address [address] [place] [address] Phone Care Team Providers Care Drop Wirer Name Role Phone Laura Grider MD Primary Care Provider + Encounter Details Date Type Department Care Team (Late st Contact Info) Description 01/14/2019 Telephone [facility] Ophthalmology [address] [facility] Health [address]th [place] [address] Elisa Kaur B.A. Social History Tobacco Use Types Packs/Day Years Used Date Smoking Tobacco: Former Cigarettes 1.8 39 1 971 - 2010 Smokeless Tobacco: Former Alcohol Use Standard Drinks/Week Comments No 0 (1 standard drink = 0.6 oz pur e alcohol) Comments Unknown Sex and Gender Information Value Date Recorded Sex Assigned at Not on file Legal Sex Female 3:03 AM WEATHER FORCASTER Gender Identity Not on file Sexual Orientation Not on file documented as of this encounter Miscellaneous Notes * Telephone Encounter - Elisa Beauchamp B.A. - 01/14/2019 9:28 AM WEATHER FORCASTER SPOKE WITH PT INFORMED HER I WOULD CALL HER Monday WITH ARRIVAL TIME FOR SX ON 01-21-19 HER FORCASTER documented in this encounter Plan of Treatment Not on file documented as of this encounter Visit Diagnoses Not on filedocumented in this encounter Care Teams Drop Wirer Relationship Specialty Start Date End Date Laura Grider MD PCP - General 03/19/13 08/17/23 documented as of this encounter
--- OUTSIDE RECORDS SUMMARY | 2024-03-08 00:44 | XMS_ITS | Encounter Summary ---
Author Organization [facility] Healthcare Address [address] [place] [address] Care Team Providers Care Operational Communication Chief Name Role Phone Laura Grider MD Primary Care Provider + Encounter Details Date Type Department Care Team (Late st Contact Info) Description 03/06/2019 5:00 PM PLANT TECH Lab [address] [address] Dermatochalasis of left upper eyelid Social History Tobacco Use Types Packs/Day Years Used Date Smoking Tobacco: Former Cigarettes 1 39 1 971 - 2010 Smokeless Tobacco: Never Alcohol Use Standard Drinks/Week Comments No 0 (1 standard drink = 0.6 oz pur e alcohol) Comments Unknown Sex and Gender Information Value Date Recorded Sex Assigned at Not on file Legal Sex Female 3:03 AM PLANT TECH Gender Identity Not on file Sexual Orientation Not on file documented as of this encounter Plan of Treatment Not on file documented as of this encounter Procedures Procedure Name Priority Date/Time Associated Diagnosis Comments AEROBIC CULTURE AND GRAM STAIN Routine 03/06/2019 4:56 PM PLANT TECH Dermatochalasis of left upper eyelid documented in this encounter Results * (ABNORMAL) Aerobic culture and gram stain Wound Left (03/06/2019 4:56 PM PLANT TECH) Direct Specimen Exam Stain: Rare polymorphonuclear leukocytes seen. Moderate Gram Positive Cocci in clusters [facility] Report Final Report: Moderate Staphylococcus aureus Methicillin susceptible (MSSA) by penicillin binding protein 2a (PBP2a) testing. This isolate is presumed to be resistant to clindamycin based on detection of inducible clindamycin resistance. Clindamycin may still be effective in some patients. Notification of: Staphylococcus aureus called to and read back by: Sharron Persaud Bruce, JAS [phone] on 03/08/2019 by: Miriam Moreno MT (.) [facility] Organism STAPHYLOCOCCUS AUREUS [facility] Wound (Left) 03/06/2019 4:56 PM PLANT TECH 03/06/2019 6:01 PM PLANT TECH Narrative [facility] - 03/09/2019 3:03 PM PLANT TECH L Upper Eyelid Specimen received on an ESwab. Testing performed by [facility] ([phone]) Specimens submitted from normally sterile body sites [...] us Cedrick Fournier MD LAB MICROBIOLOGY - [facility] AL ORDERABLES Final Result [facility] [place] [address] documented in this encounter Visit Diagnoses Diagnosis Dermatochalasis of left upper eyelid documented in this encounter Care Teams Operational Communication Chief Relationship Specialty Start Date End Date Laura Grider MD PCP - General 03/19/13 08/17/23 documented as of this encounter
--- OUTSIDE RECORDS SUMMARY | 2024-03-08 00:44 | XMS_ITS | Encounter Summary ---
Author Organization [facility] Address [address] [place] [address] Phone Care Team Providers Care Server Engineer Name Role Phone Laura Grider MD Primary Care Provider + Encounter Details Date Type Department Care Team (Late st Contact Info) Description 02/07/2019 Documentation [facility] Ophthalmology [address] [facility] Health [address]th [place] [address] Elisa Kaur B.A. Social History Tobacco Use Types Packs/Day Years Used Date Smoking Tobacco: Former Cigarettes 1.8 39 1 971 - 2010 Smokeless Tobacco: Former Alcohol Use Standard Drinks/Week Comments No 0 (1 standard drink = 0.6 oz pur e alcohol) Comments Unknown Sex and Gender Information Value Date Recorded Sex Assigned at Not on file Legal Sex Female 3:03 AM PHOTOGRAPHY MANAGER Gender Identity Not on file Sexual Orientation Not on file documented as of this encounter Progress Notes * Elisa Beauchamp B.A. - 02/07/2019 2:16 PM CST Spoke with pt since she had to cx previous sx on 01-21-19 she wishes to proceed with sx on 03-12-19. I informed her I would communicate this to DR HILL and call her back with details. OGRAPHY MANAGER documented in this encounter Plan of Treatment Not on file documented as of this encounter Visit Diagnoses Not on filedocumented in this encounter Care Teams Server Engineer Relationship Specialty Start Date End Date Laura Grider MD PCP - General 03/19/13 08/17/23 documented as of this encounter
--- OUTSIDE RECORDS SUMMARY | 2024-03-08 00:44 | XMS_ITS | Encounter Summary ---
Author Organization [facility] Care Team Providers Care Transportation Analyst Name Role Phone Laura Grider MD Primary Care Provider + Encounter Details Date Type Department Care Team (Latest Contact Info) Description 02/25/2019 Travel Social History Tobacco Use Types Packs/Day Years Used Date Smoking Tobacco: Former Cigarettes 1 39 1 971 - 2009 Smokeless Tobacco: Never Alcohol Use Standard Drinks/Week Comments No 0 (1 standard drink = 0.6 oz pur e alcohol) Comments Unknown Sex and Gender Information Value Date Recorded Sex Assigned at Not on file Legal Sex Female 3:03 AM PREPARATION SUPERVISOR Gender Identity Not on file Sexual Orientation Not on file documented as of this encounter Plan of Treatment Not on file documented as of this encounter Visit Diagnoses Not on filedocumented in this encounter Care Teams Transportation Analyst Relationship Specialty Start Date End Date Laura Grider MD PCP - General 03/19/13 08/17/23 documented as of this encounter
--- OUTSIDE RECORDS SUMMARY | 2024-03-08 00:44 | XMS_ITS | Encounter Summary ---
Author Organization [facility] Address [address] [place] [address] Phone Care Team Providers Care Electric Meter Tester Name Role Phone Laura Grider MD Primary Care Provider + Encounter Details Date Type Department Care Team (Latest Contact Info) Description 08/22/2018 8:30 AM CDT Office Visit [facility] Ophthalmology [address] [facility] Health 6th [place] [address] Ernesto Crandall MD [address] [facility] [place] [address] Dermatochalasis of left upper eyelid (Primary Dx) Social History Tobacco Use Types Packs/Day Years Used Date Smoking Tobacco: Former Alcohol Use Standard Drinks/Week Comments No 0 (1 standard drink = 0.6 oz pur e alcohol) Comments Unknown Sex and Gender Information Value Date Recorded Sex Assigned at Not on file Legal Sex Female 3:03 AM SOIL TECHNOLOGIST Gender Identity Not on file Sexual Orientation Not on file documented as of this encounter Progress Notes * Ernesot Crandall MD - 08/22/2018 8:30 AM CDT Images from the original note were not included. Date of Visit: 08/22/2018 Patient Name: Yaneth Duarte : 1955 Gender: female Primary Care Provider: Laura Grider MD Referring Provider: Cammie Woodruff* History: This 62 y.o. year old female [...] is scheduled undergo surgery later this month. Examination: Base Eye Exam Visual Acuity (Snellen - Linear) Right Left Dist cc 20/60 20/25 Dist ph sc 20/60 Correction: Glasses Tonometry (Tonopen, 8:33 AM) Right Left Pressure 17 19 Pupils Dark Light Shape React APD Right 3 2 Round + None Left 3 2 Round + none Visual Page Right Left Full Full Extraocular Movement Right Left Full Full Neuro/Psych Oriented x3: Yes Mood/Affect: Normal Slit Lamp and Fundus Exam External Exam Facial asymmetry with lower L orbit and brow. Low L superior rim with crowding. Moderate dermatochalasis with left upper eyelid (WHIT) hooding. Normal facial nerve function. MRD1 3.5 mm 3 mm Inferior scleral show 1 mm 2 mm Lagophthalmos 0 mm 0 mm Exophthalmometry (Base: 94) Right Left 20 20 Slit Lamp Exam Right Left Lids/Lashes Normal Normal Conjunctiva/Sclera White and quiet White and quiet Cornea inferior pannus Clear Anterior Chamber Deep and quiet Deep and quiet Iris Round and reactive Round and reactive Lens Nuclear sclerosis Nuclear sclerosis Impression: The appearance of left upper eyelid [...] after she recovers from right cataract extraction. I have personally examined the patient, participated in all aspects of their care, and formulated the treatment plan. documented in this encounter Plan of Treatment Not on file documented as of this encounter Procedures Procedure Name Priority Date/Time Associated Diagnosis Comments GVF LIMITED/PTOSIS - OU - BOTH EYES Routine 08/22/2018 9:27 AM CDT Dermatochalasis of left upper eyelid documented in this encounter Results * Goldmann Visual Field Ptosis - OU - Both Eyes (08/22/2018 9:27 AM CDT) Anatomical Region Laterality Modality Head Visual Field Narrative 08/22/2018 9:28 AM CDT Right Eye Fixation was good. Cooperation was good. Reliability was good. Left Eye Fixation was good. Cooperation was good. Reliability was good. Notes There is superior obstruction to 20?? OD and 19?? OS. ??The page improved to 59?? OD and 54?? OS with manual elevation. Ernesto Crandall MD OPHTH VISUAL FIELD Final Res ult documented in this encounter Visit Diagnoses Diagnosis Dermatochalasis of left upper eyelid- Primary documented in this encounter Historical Medications * This list may reflect changes made after this encounter. ARIPiprazole (ABILIFY) 30 mg tabletIndications:M ixed Bipolar I Disorder Take 1 tablet (30 mg total) by mouth nightly desvenlafaxine succinate (PRISTIQ) 50 mg 24 hr tablet daily 9 metoprolol XL (TOPROL-XL) 50 mg 24 hr tabletIndications:h ypertension Take 50 mg by mouth nightly 9 metoprolol XL (TOPROL-XL) 50 mg 24 hr tablet 05/30/2018 9 metoprolol XL (TOPROL-XL) 25 mg 24 hr tablet metoprolol succinate ER 25 mg tablet,extended release 24 hr 9 metFORMIN (GLUCOPHAGE) 1,000 mg tablet 9 metFORMIN XR (GLUCOPHAGE XR) 500 mg 24 hr tablet 07/30/2018 9 metFORMIN (FORTAMET) 500 mg 24 hr tablet daily 9 glyBURIDE (DIABETA) 5 mg tabletIndications:t ype 2 diabetes mellitus Take 10 mg by mouth 2 (two) times a day with meals 07/30/2018 0 glyBURIDE (DIABETA) 5 mg tablet glyburide 5 mg tablet 9 gabapentin (NEURONTIN) 600 mg tablet gabapentin 600 mg tablet 9 dextroamphetamine-a mphetamine (ADDERALL) 20 mg tabletIndications:A ttention-Deficit Hyperactivity Disorder Take 1 tablet (20 mg total) by mouth 2 (two) times a day 08/16/2018 4 dextroamphetamine-a mphetamine (ADDERALL) 20 mg tablet dextroamphetami ne-amphetamine 20 mg tablet TK 1 T PO TID 9 dextroamphetamine-a mphetamine (ADDERALL) 10 mg tablet 05/16/2018 9 dextroamphetamine-a mphetamine (ADDERALL) 5 mg tablet Take by mouth 9 ALPRAZolam (XANAX) 1 mg tabletIndications:a nxiety Take 1 tablet (1 mg total) by mouth daily as needed for anxiety 08/15/2018 4 metoprolol alegre-hydrochlorothiaz 100-12.5 mg tablet extended release 24 hr Take by mouth daily 9 ARIPiprazole (ABILIFY) 10 mg disintegrating tabletIndications:B ipolar Disorder in Remission Take 10 mg by mouth nightly 9 glyburide-metformin (GLUCOVANCE) 1.25-250 mg per tablet Take 1 tablet by mouth daily with breakfast 9 doxycycline (VIBRAMYCIN) 10 mg/mL syrup Take by mouth 9 desvenlafaxine succinate (PRISTIQ) 50 mg 24 hr tabletIndications:B ipolar Disorder Take 50 mg by mouth every morning 9 added in this encounter Eye Exam Visual Acuity (Snellen - Linear) Right eye Left eye Dist cc 20/60 20/25 Dist ph sc 20/60 Correction: Glasses Tonometry (Tonopen, 8:33 AM) Right eye Left eye Pressure 17 19 Pupils Dark Light Shape React APD Right eye 3 2 Round + None Left eye 3 2 Round + none Visual Page Right eye Left eye Full Full Extraocular Movement Right eye Left eye Full Full Neuro/Psych Oriented x3: Yes Mood/Affect: Normal External Exam Facial asymmetry with lower L orbit and brow. Low L superior rim with crowding. Moderate dermatochalasis with left upper eyelid (WHIT) hooding. Normal facial nerve function. Slit Lamp Exam Right eye Left eye Lids/Lashes Normal Normal Conjunctiva/Sclera White and quiet White and julia et Cornea inferior pannus Clear Anterior Chamber Deep and quiet Deep and quiet Iris Round and reactive Round and carter ctive Lens Nuclear sclerosis Nuclear sclero sis Exophthalmometry (Base: 94 mm) Right eye Left eye 20 mm 20 mm External Right eye Left eye MRD1 3.5 mm 3 mm Inferior scleral show 1 mm 2 mm Lagophthalmos 0 mm 0 mm Care Teams Electric Meter Tester Relationship Specialty Start Date End Date Laura Grider MD PCP - General 03/19/13 08/17/23 documented as of this encounter
--- OUTSIDE RECORDS SUMMARY | 2024-03-08 00:44 | XMS_ITS | Encounter Summary ---
Author Organization [facility] Address [address] [place] [address] Phone Care Team Providers Care Emt I/85 Name Role Phone Laura Grider MD Primary Care Provider + Cammie Woodruff OD Unavailable [phone] Encounter Details Date Type Department Care Team (Late st Contact Info) Description 03/14/2019 Telephone [facility] Ophthalmology [address] [facility] Health [address]th [place] [address] Swathi Figueroa B.A. Social History Tobacco Use Types Packs/Day Years Used Date Smoking Tobacco: Former Cigarettes 1 39 1 971 - 2009 Smokeless Tobacco: Never Alcohol Use Standard Drinks/Week Comments No 0 (1 standard drink = 0.6 oz pur e alcohol) Comments Unknown Sex and Gender Information Value Date Recorded Sex Assigned at Not on file Legal Sex Female 3:03 AM UAT TESTER Gender Identity Not on file Sexual Orientation Not on file documented as of this encounter Miscellaneous Notes * Telephone Encounter - Swathi Figueroa B.A. - 03/14/2019 10:58 AM CST Pt wanting a refill of bactrim - fow to dr lambert TESTER documented in this encounter Plan of Treatment Not on file documented as of this encounter Visit Diagnoses Not on filedocumented in this encounter Care Teams Emt I/85 Relationship Specialty Start Date End Date Laura Grider MD PCP - General 03/19/13 08/17/23 Cammie Woodruff OD [address] [place] [address] Optometry 03/13/19 documented as of this encounter
--- OUTSIDE RECORDS SUMMARY | 2024-03-08 00:44 | XMS_ITS | Encounter Summary ---
Author Organization [facility] Address [address] [place] [address] Phone Care Team Providers Care Physician President Name Role Phone Laura Grider MD Primary Care Provider + Cammie Woodruff OD Unavailable [phone] Encounter Details Date Type Department Care Team (Late st Contact Info) Description 03/14/2019 Orders Only [facility] Ophthalmology [address] [facility] Health 6th [place] [address] Swathi Figueroa BGianna. Social History Tobacco Use Types Packs/Day Years Used Date Smoking Tobacco: Former Cigarettes 1 39 1 971 - 2010 Smokeless Tobacco: Never Alcohol Use Standard Drinks/Week Comments No 0 (1 standard drink = 0.6 oz pur e alcohol) Comments Unknown Sex and Gender Information Value Date Recorded Sex Assigned at Not on file Legal Sex Female 3:03 AM FUNCTIONAL SKILLS TUTOR Gender Identity Not on file Sexual Orientation Not on file documented as of this encounter Plan of Treatment Not on file documented as of this encounter Visit Diagnoses Not on filedocumented in this encounter Care Teams Physician President Relationship Specialty Start Date End Date Laura Grider MD PCP - General 03/19/13 08/17/23 Cammie Woodruff, OD [address] [place] [address] Optometry 03/13/19 documented as of this encounter
--- OUTSIDE RECORDS SUMMARY | 2024-03-08 00:44 | XMS_ITS | Encounter Summary ---
Author Organization [facility] Healthcare Address [address] [place] [address] Care Team Providers Care Lettuce Trimmer Name Role Phone Laura Grider MD Primary Care Provider + Cammie Woodruff OD Unavailable [phone] Reason for Visit * Reason Comments Skin Problem Patient here for c/o possible infection on right falcon. Cut falcon on door in june and has been getting worse since, hot to the touch with redness. Also states she has an open wound on stomach from surgical scar splitting. Encounter Details Date Type Department Care Team (Late st Contact Info) Description 08/04/2023 11:00 AM CDT Office Visit [facility] at [address] [address] Cammie Borden NP [address] [place] [address] Wound cellulitis (Primary Dx); Antibiotic-induced yeast infection Social History Tobacco Use Types Packs/Day Years Used Date Smoking Tobacco: Former Cigarettes 1 39 1 971 - 2009 Smokeless Tobacco: Never Alcohol Use Standard Drinks/Week Comments No 0 (1 standard drink = 0.6 oz pur e alcohol) Comments Unknown Sex and Gender Information Value Date Recorded Sex Assigned at Not on file 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 Gender Identity Not on file Sexual Orientation Not on file documented as of this encounter Last Filed Vital Signs Vital Sign Reading Time Taken Comments Blood Pressure 122/71 08/04/2023 10:39 AM CDT Pulse 98 08/04/2023 10:39 AM CDT Temperature 36.8 ??C (98.2 ??F) 08/04/2023 10:39 AM C DT Respiratory Rate 12 08/04/2023 10:39 AM CDT Oxygen Saturation 98% 08/04/2023 10:39 AM CDT Inhaled Oxygen Concentration - - Weight 81.6 kg (180 lb) 08/04/2023 10:39 AM CDT Height 170.2 cm (5' 7 ) 08/04/2023 10:39 AM CDT Body Mass Index 28.19 08/04/2023 10:39 AM CDT documented in this encounter Patient Instructions * Patient Instructions* Cammie Borden NP - 08/04/2023 11:00 AM CDT Images from the original note were not included. Cellulitis is an infection of the skin. Take antibiotic as prescribed until it is gone Apply warm, moist compresses to the area 4-5 times daily Keep the affected area elevated Take ibuprofen 600mg every 6 hours as needed for inflammation and pain Monitor the site closely for signs/symptoms that require immediate evaluation by your PCP or ER. These symptoms include: Pain Fever Redness, warmth, red streaking or drainage to site. Follow up with your PCP in 2 days for a wound recheck, or sooner if symptoms worsen. Cellulitis WHAT YOU NEED TO KNOW: Cellulitis is a skin infection caused by bacteria. Cellulitis may go away on its own or you may need treatment. Your healthcare provider may draw a yurok around the outside edges of your cellulitis.If your cellulitis spreads, your healthcare provider will see it outside of the yurok. DISCHARGE INSTRUCTIONS: Call 911 if: You have sudden trouble breathing or chest pain. Seek care immediately if: Your wound gets larger and more painful. You feel a crackling under your skin when you touch it. You have purple dots or bumps on your skin, or you see bleeding under your skin. You have new swelling and pain in your legs. The red, warm, swollen area gets larger. You see red streaks coming from the infected area. Contact your healthcare provider if: You have a fever. Your fever or pain does not go away or gets worse. The area does not get smaller after 2 days of antibiotics. Your skin is flaking or peeling off. You have questions or concerns about your condition or care. Medicines: Antibiotics help treat the bacterial infection. NSAIDs , such as ibuprofen, help decrease swelling, pain, and fever. NSAIDs can cause stomach bleeding or kidney problems in certain people. If you take blood thinner medicine, always ask if NSAIDs are safe for you. Always read the medicine label and follow directions. Do not give these medicines to children under 6 months of age without direction from your child's healthcare provider. Acetaminophen decreases pain and fever. It is available without a doctor's order. Ask how much to take and how often to take it. Follow directions. Read the labels of all other medicines you are using to see if they also contain acetaminophen, or ask your doctor or pharmacist. Acetaminophen can cause liver damage if not taken correctly. Do not use more than 4 grams (4,000 milligrams) total of acetaminophen in one day. Take your medicine as directed. Contact your healthcare provider if you think your medicine is not helping or if you have side effects. Tell him or her if you are allergic to any medicine. Keep a list of the medicines, vitamins, and herbs you take. Include the amounts, and when and why you take them. Bring the list or the pill bottles to follow-up visits. Carry your medicine list with you in case of an emergency. Self-care: Elevate the area above the level of your heart as often as you can. This will help decrease swelling and pain. Prop the area on pillows or blankets to keep it elevated comfortably. Clean the area daily until the wound scabs over. Gently wash the area with soap and water. Pat dry.Use dressings as directed. Place cool or warm, wet cloths on the area as directed. Use clean cloths and clean water. Leave it on the area until the cloth is room temperature. Pat the area dry with a clean, dry cloth. The cloths may help decrease pain. Prevent cellulitis: Do not scratch bug bites or areas of injury. You increase your risk for cellulitis by scratching these areas. Do not share personal items, such as towels, clothing, and razors. Clean exercise equipment with germ-killing laboratory equipment cleaner before and after you use it. Wash your hands often. Use soap and water. Wash your hands after you use the bathroom, change a child's diapers, or sneeze. Wash your hands before you prepare or eat food. Use lotion to prevent dry, cracked skin. Wear pressure stockings as directed. You may be told to wear the stockings if you have peripheral edema. The stockings improve blood flow and decrease swelling. Treat athlete's foot. This can help prevent the spread of a bacterial skin infection. Follow up with your healthcare provider within 3 days, or as directed: Your healthcare provider will check if your cellulitis is getting better. You may need different medicine. Write down your questions so you remember to ask them during your visits. ?? 2017 [employer] Information is for End User's use only and may not be sold, redistributed or otherwise used for commercial purposes. All illustrations and images included in CareNotes?? are the copyrighted property of [employer] or [employer]. The above information is an legal aid only. It is not intended as medical advice for individual conditions or treatments. Talk to your doctor, nurse or pharmacist before following any medical regimen to see if it is safe and effective for you. documented in this encounter Ordered Prescriptions Prescription Sig Dispense Quantity Refills Last Filled Start Date End Date fluconazole (DIFLUCAN) 150 mg tabletIndications: Urinary Tract/Genitourinar y Infection Take 1 tablet (150 mg total) by mouth once for 1 dose May repeat in 72 hours if signs/symptoms persist. 2 tablet 08/04/2023 4 cephalexin (KEFLEX) 500 mg capsuleIndications :Skin/Soft Tissue Infection Take 1 capsule (500 mg total) by mouth 2 (two) times a day for 10 days 20 capsule 08/04/2023 4 mupirocin (BACTROBAN) 2 % ointmentIndication s:Wound cellulitis Apply topically 3 (three) times a day 22 g 08/04/2023 4 documented in this encounter Progress Notes * Cammie Borden NP - 08/04/2023 11:00 AM CDT Images from the original note were not included. Subjective/Objective Patient ID: Yaneth Duarte is a 67 y.o. female. Chief Complaint Skin Problem (Patient here for c/o possible infection on right falcon. Cut falcon on door in june and has been getting worse since, hot to the touch with redness. Also states she has an open wound on stomach from surgical scar splitting. ) Patient presents to [facility] with complaints of wound infection to right lower extremity. Patient states that she cut her left lower leg on a metal door 3 weeks ago. Patient also states that she was hospitalized for sepsis related to a UTI in May and was in ICU for 3 days. In addition to the wound on her right lower extremity patient also states that she has a laceration in her left pannus related to friction. 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 Denies systemic effects such as fever. Review of Systems Constitutional: Negative for chills, fatigue and fever. HENT: Negative for congestion, ear pain, rhinorrhea, sinus pressure and sore throat. Respiratory: Negative for cough, chest tightness and shortness of breath. Cardiovascular: Negative for chest pain. Gastrointestinal: Negative for abdominal pain. Musculoskeletal: Negative for back pain. Skin: Positive for color change and wound. Negative for rash. Neurological: Negative for dizziness and headaches. Physical Exam Constitutional: Appearance: Normal appearance. Eyes: Conjunctiva/sclera: Conjunctivae normal. Cardiovascular: Rate and Rhythm: Normal rate and regular rhythm. Pulses: Dorsalis pedis pulses are 1+ on the right side and 1+ on the left side. Posterior tibial pulses are 1+ on the right side and 1+ on the left side. Heart sounds: Normal heart sounds. Pulmonary: Effort: Pulmonary effort is normal. Breath sounds: Normal breath sounds. Musculoskeletal: Right lower leg: No edema. Left lower leg: No edema. Lymphadenopathy: Lower Body: Right inguinal adenopathy present. No left inguinal adenopathy. Skin: General: Skin is warm and dry. Capillary Refill: Capillary refill takes less than 2 seconds. Findings: Bruising, erythema and wound present. Neurological: Mental Status: She is alert. Psychiatric: Mood and Affect: Mood normal. Behavior: Behavior is cooperative. Vitals: 08/04/23 1039 BP: 122/71 Pulse: 98 Resp: 12 Temp: 36.8 ??C (98.2 ??F) SpO2: 98% Weight: 81.6 kg (180 lb) Height: 170.2 cm (5' 7 ) No results found for this or any previous visit (from the past 4 hour(s)). Assessment/Plan Wound cleane, bacitracin applied, covered with non adhesive dressing and Coban Diagnoses and all orders for this visit: Wound cellulitis (Primary) - mupirocin (BACTROBAN) 2 % ointment; Apply topically 3 (three) times a day - cephalexin (KEFLEX) 500 mg capsule; Take 1 capsule (500 mg total) by mouth 2 (two) times a day for 10 days - Aerobic and anaerobic culture and gram stain Wound Leg, right; Future Antibiotic-induced yeast infection - fluconazole (DIFLUCAN) 150 mg tablet; Take 1 tablet (150 mg total) by mouth once for 1 dose May repeat in 72 hours if signs/symptoms persist. Patient Education: Cellulitis is an infection of the skin. Take antibiotic as prescribed until it is gone Apply warm, moist compresses to the area 4-5 times daily Keep the affected area elevated Take ibuprofen 600mg every 6 hours as needed for inflammation and pain Monitor the site closely for signs/symptoms that require immediate evaluation by your PCP or ER. These symptoms include: Pain Fever Redness, warmth, red streaking or drainage to site. Follow up with your PCP in 2 days for a wound recheck, or sooner if symptoms worsen. Disposition Treatment plan including expectations, follow up, and return precautions discussed with patient/parent, verbalizes understanding. Medication dosage, use, and potential adverse reactions discussed with patient/parent. Advised to follow up with PCP if symptoms do not resolve as expected or sooner if condition worsens. Signs/symptoms warranting ER evaluation reviewed. Patient and/or guardian was given an opportunity to ask questions, questions answered. Cellulitis WHAT YOU NEED TO KNOW: Cellulitis is a skin infection caused by bacteria. Cellulitis may go away on its own or you may need treatment. Your healthcare provider may draw a yurok around the outside edges of your cellulitis.If your cellulitis spreads, your healthcare provider will see it outside of the yurok. DISCHARGE INSTRUCTIONS: Call 911 if: You have sudden trouble breathing or chest pain. Seek care immediately if: Your wound gets larger and more painful. You feel a crackling under your skin when you touch it. You have purple dots or bumps on your skin, or you see bleeding under your skin. You have new swelling and pain in your legs. The red, warm, swollen area gets larger. You see red streaks coming from the infected area. Contact your healthcare provider if: You have a fever. Your fever or pain does not go away or gets worse. The area does not get smaller after 2 days of antibiotics. Your skin is flaking or peeling off. You have questions or concerns about your condition or care. Medicines: Antibiotics help treat the bacterial infection. NSAIDs , such as ibuprofen, help decrease swelling, pain, and fever. NSAIDs can cause stomach bleeding or kidney problems in certain people. If you take blood thinner medicine, always ask if NSAIDs are safe for you. Always read the medicine label and follow directions. Do not give these medicines to children under 6 months of age without direction from your child's healthcare provider. Acetaminophen decreases pain and fever. It is available without a doctor's order. Ask how much to take and how often to take it. Follow directions. Read the labels of all other medicines you are using to see if they also contain acetaminophen, or ask your doctor or pharmacist. Acetaminophen can cause liver damage if not taken correctly. Do not use more than 4 grams (4,000 milligrams) total of acetaminophen in one day. Take your medicine as directed. Contact your healthcare provider if you think your medicine is not helping or if you have side effects. Tell him or her if you are allergic to any medicine. Keep a list of the medicines, vitamins, and herbs you take. Include the amounts, and when and why you take them. Bring the list or the pill bottles to follow-up visits. Carry your medicine list with you in case of an emergency. Self-care: Elevate the area above the level of your heart as often as you can. This will help decrease swelling and pain. Prop the area on pillows or blankets to keep it elevated comfortably. Clean the area daily until the wound scabs over. Gently wash the area with soap and water. Pat dry.Use dressings as directed. Place cool or warm, wet cloths on the area as directed. Use clean cloths and clean water. Leave it on the area until the cloth is room temperature. Pat the area dry with a clean, dry cloth. The cloths may help decrease pain. Prevent cellulitis: Do not scratch bug bites or areas of injury. You increase your risk for cellulitis by scratching these areas. Do not share personal items, such as towels, clothing, and razors. Clean exercise equipment with germ-killing laboratory equipment cleaner before and after you use it. Wash your hands often. Use soap and water. Wash your hands after you use the bathroom, change a child's diapers, or sneeze. Wash your hands before you prepare or eat food. Use lotion to prevent dry, cracked skin. Wear pressure stockings as directed. You may be told to wear the stockings if you have peripheral edema. The stockings improve blood flow and decrease swelling. Treat athlete's foot. This can help prevent the spread of a bacterial skin infection. Follow up with your healthcare provider within 3 days, or as directed: Your healthcare provider will check if your cellulitis is getting better. You may need different medicine. Write down your questions so you remember to ask them during your visits. ?? 2017 [employer] Information is for End User's use only and may not be sold, redistributed or otherwise used for commercial purposes. All illustrations and images included in CareNotes?? are the copyrighted property of [employer] or [employer]. The above information is an legal aid only. It is not intended as medical advice for individual conditions or treatments. Talk to your doctor, nurse or pharmacist before following any medical regimen to see if it is safe and effective for you. Cammie Borden NP documented in this encounter Plan of Treatment Not on file documented as of this encounter Results * (ABNORMAL) Aerobic and anaerobic culture and gram stain Wound Leg, right (08/04/2023 11:00 AM CDT) Direct Specimen Exam Stain: No polymorphonuclear leukocytes seen. Abundant Gram Positive Cocci Comment:Testing performed by : [facility], [address] [place]., [address] Report Final Report: Moderate Staphylococcus aureus Methicillin resistant (MRSA) by penicillin binding protein 2a (PBP2a) testing. (.) [place] Comment:Testing performed by : [facility], [address] [place]., [address] Organism STAPHYLOCOCCUS AUREUS [place] Wound (Leg, right) 08/04/2023 11:00 AM CDT 08/04/2023 7:40 PM CDT Narrative [place] - 08/11/2023 3:48 PM CDT Specimen received on an ESwab. Testing performed by [facility] ([phone]) Specimens submitted from normally sterile body sites [...] Staphylococcus aureus Ceftriaxone INTERPRETATION Resistant Cammie Borden NP LAB MICROBIOLOGY - [facility] [place] [address] [address] Department [place] [address] documented in this encounter Visit Diagnoses Diagnosis Wound cellulitis- Primary Antibiotic-induced yeast infection Wound cellulitis documented in this encounter Discontinued Medications Medication Sig Discontinue Reason Start Date End Da te cephalexin (KEFLEX) 500 mg capsule 07/19/2022 08/04/2023 fluconazole (DIFLUCAN) 150 mg tablet 07/21/2023 08/04/2023 documented as of this encounter Historical Medications * This list may reflect changes made after this encounter. nystatin 100,000 unit/mL suspension TAKE 10 ML BY MOUTH 4 TIMES A DAY 08/18/2023 levoFLOXacin (LEVAQUIN) 750 mg tablet 06/05/2023 08/18/2023 fluconazole (DIFLUCAN) 150 mg tablet 07/21/2023 08/04/2023 eszopiclone (LUNESTA) 2 mg tablet 05/01/2023 08/18/2023 ciprofloxacin (CIPRO) 500 mg tablet Take 1 tablet (500 mg total) by mouth 2 (two) times a day 07/20/2023 08/18/2023 cariprazine (Vraylar) 4.5 mg capsule Take 1 capsule every day by oral route. 03/08/2023 08/18/2023 added in this encounter Care Teams Lettuce Trimmer Relationship Specialty Start Date End Date Laura Grider MD PCP - General 03/19/13 08/17/23 Cammie Woodruff OD [address] [place] [address] Optometry 03/13/19 documented as of this encounter
--- OUTSIDE RECORDS SUMMARY | 2024-03-08 00:44 | XMS_ITS | Encounter Summary ---
Author Organization [facility] Address [address] [place] [address] Phone Care Team Providers Care Road Cutter Name Role Phone Laura Grider MD Primary Care Provider + Encounter Details Date Type Department Care Team (Late st Contact Info) Description 01/15/2019 Documentation [facility] Ophthalmology [address] [facility] [address] [place] [id number] Elisa Kaur B.A. 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
--- OUTSIDE RECORDS SUMMARY | 2024-03-08 00:45 | XMS_ITS | Encounter Summary ---
Author Organization [facility] Healthcare Address [address] [place] [address] Care Team Providers Care Returns Clerk Name Role Phone Laura Grider MD Primary Care Provider + Encounter Details Date Type Department Care Team (Latest Contact Info) Description 06/24/2016 10:19 AM CDT - 06/24/2016 11:59 PM CDT Hospital Encounter [facility]IM [phone] Clay Sousa [address] [address] Discharge Disposition: Discharge to home or self care Social History Tobacco Use Types Packs/Day Years Used Date Smoking Tobacco: Former Alcohol Use Standard Drinks/Week Comments No 0 (1 standard drink = 0.6 oz pur e alcohol) Comments Unknown Sex and Gender Information Value Date Recorded Sex Assigned at Not on file 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 Gender Identity Not on file Sexual Orientation Not on file documented as of this encounter Discharge Disposition Disposition Code Departure Means Destination Discharge to home or self care documented in this encounter Plan of Treatment Not on file documented as of this encounter Procedures Procedure Name Priority Date/Time Associated Diagnosis Comments JAYCEE TITER Routine Gen Lab 06/24/2016 1:12 PM CDT C4 COMPLEMENT Routine Gen Lab 06/24/2016 1:12 PM CDT ANTI-DOUBLE STRANDED DNA ANTIBODIES Routine Gen Lab 06/24/2016 1:12 PM CDT ZEE ANTIBODY EVALUATION WITH REFLEX Routine Gen Lab 06/24/2016 1:12 PM CDT SJOGRENS SYNDROME-B ANTIBODY Routine Gen Lab 06/24/2016 1:12 PM CDT SJOGRENS SYNDROME-A ANTIBODY Routine Gen Lab 06/24/2016 1:12 PM CDT ERYTHROCYTE SEDIMENTATION RATE Routine Gen Lab 06/24/2016 1:12 PM CDT ANTITHROMBIN Routine Gen Lab 06/24/2016 1:12 PM CDT C3 COMPLEMENT Routine Gen Lab 06/24/2016 1:12 PM CDT JAYCEE SCREEN Routine Gen Lab 06/24/2016 1:12 PM CDT URINALYSIS Routine Gen Lab 06/24/2016 10:22 AM CDT documented in this encounter Results * Sjogrens syndrome-B antibody (06/24/2016 1:12 PM CDT) Anti-ZEE, SS-B Negative Negative [facility] Blood specimen (specimen) 06/24/2016 1:12 PM CDT 06/24/2016 1:24 PM CDT Clay Sousa LAB BLOOD ORDERABLES Final Re sult [facility] [place] [address] * (ABNORMAL) Sjogrens syndrome-A antibody (06/24/2016 1:12 PM CDT) Anti-ZEE, SS-A Positive(A ) Negative [facility] Blood specimen (specimen) 06/24/2016 1:12 PM CDT 06/24/2016 1:24 PM CDT Clay Li Hantele LAB BLOOD ORDERABLES Final Re sult Performing Organization Address [facility] Co de Phone Number MERY [facility] [place] [address] * (ABNORMAL) JAYCEE titer (06/24/2016 1:12 PM CDT) JAYCEE, quant 1:640(A) Negative titer [facility] JAYCEE, interp Speckled(A) [facility] JAYCEE, interp 2 See Comment [facility] Comment:No additional patter n seen. Blood specimen (specimen) 06/24/2016 1:12 PM CDT 06/24/2016 1:24 PM CDT [facility] BLOOD ORDERABLES Final Re sult Performing Organization Address [facility] Co de Phone Number [facility] [place] [address] * (ABNORMAL) JAYCEE screen (06/24/2016 1:12 PM CDT) JAYCEE Positive( A) Negative [facility] Comment: Interpretive Data Normal range for Jaycee Qualitative Antibody = Negative. 1. ??JAYCEE titers are performed on all positive qualitative results. 2. ??A significantly positive JAYCEE result is defined as a positive nuclear fluorescence at a titer of 1:80 or greater. 3. ??15% of normal people above age 65 have significantly positive JAYCEE results. ??5% or less of normal people age 65 or under have significantly positive JAYCEE results. Current interpretive data was last revised on 03. Blood specimen (specimen) 06/24/2016 1:12 PM CDT 06/24/2016 1:18 PM CDT Clay OpenHomes LAB BLOOD ORDERABLES Final Re sult Performing Organization Address [facility] Co de Phone Number MERY [facility] [place] [address] * ds DNA (06/24/2016 1:12 PM CDT) Pathologist [facility] dsDNA Ab <12.3 <=29.9 IUnits/mL [facility] Comment: Interpretive Data ??<30 IUnits/mL = Negative 30-75 IUnits/mL = [place] ??>75 IUnits/mL = Positive Current interpretive data was last revised on 2008. Blood specimen (specimen) 06/24/2016 1:12 PM CDT 06/24/2016 1:18 PM CDT Clay Li Lars LAB BLOOD ORDERABLES Final Re sult Performing Organization Address [facility] Co de Phone Number [facility] [place] [address] * (ABNORMAL) ZEE antibody panel (06/24/2016 1:12 PM CDT) [facility] ZEE ab Positive( A) Negative [facility] Comment: Interpretive Data Positive Screens will be reflexed to specific testing for the following antigens: INDUSTRIAL SPECIALIST/SM, SM, SSA, and SSB. A positive screen with negative specific antibodies indicates absence of Extractable Nuclear Antibody. Current interpretive data was last revised on 08. Blood specimen (specimen) 06/24/2016 1:12 PM CDT 06/24/2016 1:18 PM CDT [facility] LAB BLOOD ORDERABLES Final Re sult Performing Organization Address [facility] Co de Phone Number [facility] [place] [address] * Antithrombin (06/24/2016 1:12 PM CDT) [facility] Rheumatoid factor, quant 10.0 0.1 - 15.0 IUnits/mL [facility] Blood specimen (specimen) 06/24/2016 1:12 PM CDT 06/24/2016 1:18 PM CDT Clay Sousa LAB BLOOD ORDERABLES Edited R esult - Final Performing Organization Address [facility] Co de Phone Number [facility] [place] [address] * C4 complement (06/24/2016 1:12 PM CDT) Complement C4 25.8 10.0 - 40.0 mg/dL [facility] Blood specimen (specimen) 06/24/2016 1:12 PM CDT 06/24/2016 1:18 PM CDT Clay Li Lars LAB BLOOD ORDERABLES Edited R esult - Final Performing Organization Address [facility] de Phone Number [facility] [place] [address] * C3 complement (06/24/2016 1:12 PM CDT) Complement C3 148.0 90.0 - 180.0 mg/dL [facility] Blood specimen (specimen) 06/24/2016 1:12 PM CDT 06/24/2016 1:18 PM CDT Clay Sousa LAB BLOOD ORDERABLES Edited R esult - Final Performing Organization Address [facility] de Phone Number [facility] [place] [address] * Erythrocyte sedimentation rate (06/24/2016 1:12 PM CDT) Erythrocyte sedimentation rate 7 0 - 35 mm/H [facility] Blood specimen (specimen) 06/24/2016 1:12 PM CDT 06/24/2016 1:19 PM CDT Clay Sousa LAB BLOOD ORDERABLES Final Re sult Performing Organization Address [facility] Co de Phone Number MERY LUCIANO [facility] Department [place] [address] * (ABNORMAL) Urinalysis (06/24/2016 10:22 AM CDT) Color, ur Yellow Yellow [facility] Clarity, ur Cloudy(A) Clear [facility] Specific gravity, ur 1.009 1.003 - 1.030 [facility] pH, ur 5.0 5.0 - 8.0 [facility] Albumin, ur Negative Trace [facility] Glucose, ur ql Negative Negative [facility] Ketones, ur Negative Negative [facility] Bilirubin, ur Negative Negative [facility] Blood, ur Negative Negative [facility] Urobilinogen, ur <2.0 <2.0 mg/dL [facility] Nitrites, ur Positive(A) Negative [facility] Leukocyte esterase, ur 3+(A) Negative [facility] Urine 06/24/2016 10:2 2 AM CDT 06/24/2016 1:42 PM CDT Clay Sousa LAB URINE ORDERABLES Final Re sult Performing Organization Address [facility] Co de Phone Number [facility] Department [place] [address] documented in this encounter Visit Diagnoses Not on filedocumented in this encounter Care Teams Returns Clerk Relationship Specialty Start Date End Date Laura Grider MD PCP - General 03/19/13 08/17/23 documented as of this encounter
--- OUTSIDE RECORDS SUMMARY | 2024-03-08 00:45 | XMS_ITS | Encounter Summary ---
Author Organization [facility] Facility Care Team Providers Care Ssn/Ssbn Assistant Navigator Name Role Phone Unavailable Primary Care Provider Unavailabl e Encounter Details Date Type Department Care Team (Late st Contact Info) Description 05/25/2009 8:13 AM CDT - 05/25/2009 4:00 PM CDT Hospital Encounter [facility] Chloe Gonzalez Special screening for malignant neoplasms, colon; Benign neoplasm of rectum and anal canal; Other depressive disorder; Anxiety state Social History Tobacco Use Types Packs/Day Years Used Date Smoking Tobacco: Never Assessed Comments Unknown Sex and Gender Information Value Date Recorded Sex Assigned at Not on file 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
--- OUTSIDE RECORDS SUMMARY | 2024-03-08 00:45 | XMS_ITS | Encounter Summary ---
Author Organization [facility] Address [address] [place] [address] Phone Care Team Providers Care Automobile Body Repairer Name Role Phone Laura Grider MD Primary Care Provider + Reason for Visit * Reason Onset Date Comments Appointment 05/10/2018 Encounter Details Date Type Department Care Team (Late st Contact Info) Description 05/10/2018 Telephone [facility] Op[facility]mology [address] [place], [place] [id number] Ernesto Crandall MD [address] [address] Appointment Social History Tobacco Use Types Packs/Day Years Used Date Smoking Tobacco: Former Alcohol Use Standard Drinks/Week Comments No 0 (1 standard drink = 0.6 oz pur e alcohol) Comments Unknown Sex and Gender Information Value Date Recorded Sex Assigned at Not on file 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 - 05/10/2018 3:[address] Cammie Woodruff office called wanting patient to be seen dwaine for Dermatochalasis OS. Ischeduled the patient for Dr. Crandall's first available and their office I am putting a message in for Dr. Crandall. Office is also faxing over medical records to offer more details. Call back #: documented in this encounter Plan of Treatment Not on file documented as of this encounter Visit Diagnoses Not on filedocumented in this encounter Care Teams Automobile Body Repairer Relationship Specialty Start Date End Date Laura Grider MD PCP - General 03/19/13 08/17/23 documented as of this encounter
--- OUTSIDE RECORDS SUMMARY | 2024-03-08 00:50 | XMS_ITS | Continuity of Care Document ---
Author Organization [place] - [facility] [employer] [facility], [facility] [place] Address [address] [place] [address] Care Team Providers Care Electron Gun Assembler Name Role Phone MARION GREGG ZACHARY Primary Care Provider MARION GREGG ZACHARY Referring Provider Assessment No assessment recorded. Plan of Treatment Reminders Order Date Submit Date Provider Last Modified By Organization Details Last Modified Time Details Appointments Any 30 025 08:30AM Jess Lima NP Not available Not available Not available Lab None record ed. Referral None record ed. Procedures None record ed. Surgeries None record ed. Imaging None record ed. Medication Orders None record ed. Patient TargetsNo targets recorded. Patient InstructionsNo instructions recorded. Reason for Referral None Reported. Results Created Date Observation Date Name Description Value Unit Range Abnormal Flag Note LastModifiedBy Organization Detail LastModifiedTime 02/09/20 24 02/09/2024 imagi ng/di agnos tic resul t No observ ation record ed. [address], [address], 02/09/2024 06:31:48 02/09/20 24 02/09/2024 imagi ng/di agnos tic resul t No observ ation record ed. [address], [address], 02/09/2024 06:39:16 02/09/20 24 02/09/2024 imagi ng/di agnos tic resul t No observ ation record ed. [address] [place], [address], 02/09/2024 07:07:16 02/09/20 24 02/09/2024 imagi ng/di agnos tic resul t No observ ation record ed. [address], [place], [address], 02/09/2024 08:39:10 02/10/20 24 02/10/2024 imagi ng/di agnos tic resul t No observ ation record ed. [address], [place], [address], 02/10/2024 16:54:29 02/16/20 24 02/15/2024 imagi ng/di agnos tic resul t No observ ation record ed. [address], [place], [address], 02/16/2024 09:56:53 03/01/19 25 02/09/2024 CT, chest , w/o contr ast No observ ation record ed. BARCODE Not Available 2024 14:43:15 Result Notes None recorded. Problems Name Problem SNOMED Code Status Onset Date Resolution Date Notes Provider Name and Address Organization Details Recorded Time Bipolar disorder 62352039 Active Not Available [facility] 3 00:53:11 Calcific tendinitis of shoulder 80290951 Active Not Available [facility] 3 00:53:11 Attention deficit hyperactivity disorder, predominantly inattentive type 98702307 Active Not Available [facility] 3 00:53:11 Osteoarthriti s 010616591 Active Not Available [facility] 3 00:53:11 Essential hypertension 28358216 Active Not Available [facility] 3 00:53:12 Allergic rhinitis 55231108 Active Not Available [facility] 3 00:53:12 Diabetes mellitus 94149074 Active Not Available [facility] 3 00:53:12 Obstructive sleep apnea syndrome 08894281 Active 2021 Not Available [facility] 3 00:53:12 Sj? ? ?gren's syndrome 94318343 Active Not Available [facility] 3 00:53:12 Ex-smoker 2472559 Active Not Available [facility] 3 00:53:12 Chronic ulcerative proctitis 78845937 Active 2022 Laura Grider MD [address], [place], [address] , [employer] 3 09:54:31 Vitamin D deficiency 95183530 Active 2022 Laura Grider MD [address], [place], [address] , [employer] 3 09:57:13 Hyperlipidemi a 32958762 Active 2022 Laura Grider MD [address] [facility], [place], [address] , [employer] 3 09:57:58 Mixed anxiety and depressive disorder 186976560 Active 2022 Laura Grider MD [address], [place], [address] , [employer] 3 15:40:00 Iron deficiency 04949737 Active 2023 MARION Orellana [address] [facility], [place], [address] , [employer] 4 09:52:22 Cobalamin deficiency 018732983 Active 2023 MARION Orellana [address], [place], [address] , [employer] 4 14:29:47 Dyspnea on exertion 91352935 Active 2024 Ronny Fulton MD [address], [place], [address] , [employer] 5 10:48:26 Notes:Medical History: Anxie ty/Bipolar depression/ADHD [...] catheterization 2024 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 Procedures Surgical History Date Name Laterality Status Provider Name and Address Organization Details Recorded Time 01/03/20 24 Ortho - Cortisone Injection completed Kathy Ross NP [address], [place], [address], [facility] [employer] [facility] Work4 01/03/2024 15:00:40 12/13/19 24 Ortho - Cortisone Injection completed Flaco Denise MD [address], [place], [address], [employer] [facility] Work4 12/13/2023 10:33:59 07/05/19 24 Cortisone Injection (Dequervains/ Greater Trochantric/ Lateral Epicondylitis/ Shoulder/ Subacromial Space/ Knee or Trigger Finger) completed Laura Grider MD [address], [place], [address], [employer] [facility] Work4 07/05/2023 08:50:43 06/20/19 24 Transitional_Ca re_Management completed Ce Hector RN [employer] [facility] Work4 06/20/2023 16:41:15 01/05/20 23 Cortisone Injection (Dequervains/ Greater Trochantric/ Lateral Epicondylitis/ Shoulder/ Subacromial Space/ Knee or Trigger Finger) completed Laura Grider MD [address], [place], [address], [facility] [employer] [facility] Work4 01/19/2023 19:14:01 09/02/19 23 Cortisone Injection (Dequervains/ Greater Trochantric/ Lateral Epicondylitis/ Shoulder/ Subacromial Space/ Knee or Trigger Finger) completed SHARA Acosta [address], [facility] [address], [place], [address], [place] [employer] 08/31/2022 08:22:44 07/01/19 Colonoscopy completed Hope Zamora LPN [place] [employer] [facility] Work4 06/30/2022 14:35:15 Knee Replacement completed Not Available [facility] 04/20/2022 00:47:57 procedure on urinary bladder completed Not Available [facility] 04/20/2022 00:47:57 Knee Replacement completed Not Available [facility] 04/20/2022 00:47:57 Imaging Results None recorded. Procedure Notes None recorded. Medical Equipment None Reported. Allergies Allergen ID Allergen Name Allergen Category Reaction Reaction Severity Criticality Documentation Date Start Date Code Code System Note Provider Name and Address Organization Details Recorded Time 1284 triamcino lone medicatio n Not available Not available Not available 04/20/2022 62987 RxNorm OINT Not Available [facility] 3 01:02:05 1285 codeine medicatio n itching Not available Not available 04/20/2022 2670 RxNorm Not Available [facility] 3 01:02:05 Medications Name Sig Start Date [...] suspension for injection in office 03/01 completed ND: 0003-0 494-20 Not Available Not Available Not [...] propionate 50 mcg/actuat ion nasal spray,susp ension [place] 1 spray every day by intranasa l [...] ous route with meals for 90 days. 10/22 /2024 completed 10 units TID Not Available Not [...] Not Available Not Available Not Available Fluvirin 4052-2968 45 mcg (15 mcg x 3)/0.5 mL intramuscu lar suspension 01/04 completed Not Available Not Available Not Available marijuana (cannabis) medical marijuana 06/03 completed Not Available Not Available Not Available Saxenda 3 mg/0.5 mL (18 mg/3 mL) subcutaneo us pen injector Inject 0.6 mg every day by subcutane ous route. 02/05 completed Not Available Not Available Not Available Flulaval Quad 9122-8657 60 mcg (15 mcg x 4)/0.5 mL [...] Available Not Available Basaglar KwikPen U-100 Insulin 50 units 03/22 completed [...] Not Available Not Available Not Available Vitals None Recorded Social History Question Answer Notes LastModified by Organizat ion Details LastModified Time Tobacco Smoking Status Former Smoker Not Available [facility] 04/20/2022 00:45:45 Do You Have An Advance Directive? Yes MIGRATION.08054 26512 Information not available 04/20/2022 What Is Your Level Of Alcohol Consumption? None MIGRATION.45584 14462 Information not available 04/20/2022 Are You Blind Or Do You Have Difficulty Seeing? No MIGRATION.06942 38274 Information not available 04/20/2022 What Is Your Level Of Caffeine Consumption? Occasional MIGRATION.65628 89009 Information not available 04/20/2022 How Much Tobacco Do You Chew? None MIGRATION.28586 06759 Information not available 04/20/2022 In The 14 Days Before Symptom Onset, Have You Had Close Contact With A Laboratory-confi rmed COVID-19 While That Case Was Ill? No MIGRATION.79904 42479 Information not available 04/20/2022 In The 14 Days Before Symptom Onset, Have You Had Close Contact With A Person Who Is Under Investigation For COVID-19 While That Person Was Ill? No MIGRATION.40248 95009 Information not available 04/20/2022 Are You Deaf Or Do You Have Serious Difficulty Hearing? No MIGRATION.70668 91726 Information not available 04/20/2022 What Type Of Diet Are You Following? REGULAR MIGRATION.31839 82346 Information not available 04/20/2022 Which Illicit Or Recreational Drugs Have You Used? None MIGRATION.12674 07521 Information not available 04/20/2022 Do You Or Have You Ever Used E-cigarettes Or Vape? Never Used Electronic Cigarettes MIGRATION.78662 14873 Information not available 04/20/2022 Do You Have An Electrostatic Air Filter? No MIGRATION.01765 15292 Information not available 04/20/2022 What Is Your Occupation? Retired MIGRATION.52147 13380 Information not available 04/20/2022 Do You Have A Humidifier? Yes MIGRATION.04329 49878 Information not available 04/20/2022 Do You Use Insect Repellent Routinely? Yes MIGRATION.58085 73525 Information not available 04/20/2022 Do You Have A Medical Power Of Art Objects Repairer? Yes MIGRATION.18580 12248 Information not available 04/20/2022 Do You Have Moisture Problems In Your Home? No MIGRATION.81407 43536 Information not available 04/20/2022 What Was The Date Of Your Most Recent Tobacco Screening? 03/07/2024 Information not available 03/07/2024 Do You Have Any Pets? Yes MIGRATION.28128 75745 Information not available 04/20/2022 Do You Use Your Seat Belt Or Car Seat Routinely? Yes Information not available 03/07/2024 Do You Have Smoke And Carbon Monoxide Detectors In Your Home? Yes MIGRATION.55243 26100 Information not available 04/20/2022 Are You Passively Exposed To Smoke? No MIGRATION.47730 76058 Information not available 04/20/2022 Do You Or Have You Ever Used Smokeless Tobacco? Never Used Smokeless Tobacco MIGRATION.28468 22989 Information not available 04/20/2022 How Much Tobacco Do You Smoke? No MIGRATION.62048 08224 Information not available 04/20/2022 Do You Feel Stressed (tense, Restless, Nervous, Or Anxious, Or Unable To Sleep At Night)? [id number] MIGRATION.77942 57368 Information not available 04/20/2022 Do You Use Any Illicit Or Recreational Drugs? No MIGRATION.33499 22436 Information not available 04/20/2022 Do You Use Sunscreen Routinely? Yes MIGRATION.10587 08712 Information not available 04/20/2022 Have You Recently Traveled Abroad? No MIGRATION.97904 22432 Information not available 04/20/2022 Do You Or Have You Ever Used Any Other Forms Of Tobacco Or Nicotine? Yes Vape 0 Nicotine MIGRATION.15720 30249 Information not available 04/20/2022 Sex: Unknown Functional Status Question Answer Note LastModified by Organizat ion Details LastModified Time Do you have difficulty walking or climbing stairs? No Running into things-clum sy pt stated MIGRATION.113848 5078 Information not available 04/20/2022 Do you have transportation difficulties? No MIGRATION.485525 0826 Information not available 04/20/2022 Are you able to walk? YESWOREST MIGRATION.193238 6582 Information not available 04/20/2022 Do you have difficulty doing errands alone? No MIGRATION.513753 1233 Information not available 04/20/2022 Are you able to care for yourself? Yes MIGRATION.344263 3430 Information not available 04/20/2022 Do you have difficulty dressing or bathing? No MIGRATION.337016 7570 Information not available 04/20/2022 What is your exercise level? None MIGRATION.926661 2063 Information not available 04/20/2022 Mental Status Question Answer Note LastModified by Organizat ion Details LastModified Time Do you have difficulty concentrating, remembering or making decisions? No MIGRATION.577301364 6 Information not available 04/20/2022 Family History [...] Time Influenza, high-dose, quadrivalent, PF 3 completed REJI Read, [facility] [employer] [facility] 12/08/2022 11:49:45 COVID-19, mRNA, LNP-S, PF, shoaib-sucrose, 30 mcg/0.3 mL 3 completed REJI Read, [facility] [employer] [facility] 12/08/2022 11:50:25 RSV, recombinant, protein subunit RSVpreF, adjuvant reconstituted, 0.5 mL, PF 3 completed Ce Hector RN null, [facility] 01/09/2023 08:50:20 COVID-19, mRNA, LNP-S, PF, shoaib-sucrose, 30 mcg/0.3 mL 4 completed Bailee Perez RN null, [facility] 11/24/2023 08:40:45 Influenza, high-dose, trivalent, PF 4 completed Bailee Perez RN null, [facility] 11/24/2023 08:45:19 Influenza, split virus, trivalent, preservative 3 completed Melany Ruano CMA null, [facility] 09/01/2022 11:26:16 Influenza, split virus, trivalent, PF 3 completed Melany Ruano CMA null, [facility] 09/01/2022 11:26:16 Influenza, high-dose, quadrivalent, PF 2 completed [facility]22 11:26:16 COVID-19, mRNA, LNP-S, bivalent, PF, 30 mcg/0.3 mL dose 2 completed [facility] 09/01/2022 11:26:16 Hep A-Hep B 2 completed [facility] 09/01/2022 11:26:16 Influenza, split virus, trivalent, preservative 3 completed Not Available [facility] 04/20/2022 01:01:48 Influenza, high-dose, quadrivalent, PF 1 completed Not Available [facility] 04/20/2022 01:01:49 pneumococcal polysaccharide PPV23 0 completed Not Available [facility] 04/20/2022 01:01:49 Pneumococcal conjugate PCV 13 8 completed Not Available [facility] 04/20/2022 01:01:49 Influenza, split virus, quadrivalent, PF 7 completed Not Available [facility] 04/20/2022 01:01:49 Influenza, split virus, quadrivalent, PF 8 completed Not Available [facility] 04/20/2022 01:01:49 Tdap 4 completed Not Available [facility] 04/20/2022 01:01:49 Tdap 4 completed Katelyn Pearson RN [facility], [place] - [facility] 10/24/2023 09:34:20 Past Encounters Encounter ID Performer Location Encounter Start Date Encounter Closed Date Diagnosis/Indication Diagnosis SNOMED-CT Code Diagnosis ICD10 Code Diagnosis Note [id number] Kathy Ross NP [facility] [place] [address] [place] [address] 01/03/2024 09:22:30 01/03/2024 11:17:36 Pain of left shoulder joint 4737999302 2910324 M25.039 [id number] MARION Sterling [facility] Primary Care [facility] [address] [facility] [address] [place] [address] 01/15/2024 14:31:36 01/15/2024 15:59:41 Health Concerns Section Related Observation LastModified by Organization Detai ls LastModified Time None Recorded Concern Status LastModified by Organization Details LastModified Time None Recorded Payers Encounter Date Sequence Insurance Name Policy Number Policy Benoit Covered Member ID Benoit Member ID Guarantor Name 01/15/2024 1 [employer] (MEDICARE REPLACEMENT PPO) [id number] Yaneth Duarte [id number] Yaneth Duarte OBGyn Episode No OBEpisode recorded.
--- OUTSIDE RECORDS SUMMARY | 2024-03-08 00:50 | XMS_ITS | Continuity of Care Document ---
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 She can actively lift to 90? ? ?. Full passive motion. Positve ashvin moyer hawkins. [...] as needed. [email or web address] Not available 01/03/2024 15:00:09 Plan of Treatment Reminders Order Date Submit Date Provider Last Modified By Organization Details Last Modified Time Details Appointments Any 30 2024 08:30A M Jess Lima, KIM Not available Not available Not available Lab None recorded. Referral None recorded. Procedures injection /aspirati on joint/bur sa (PROC) 2023 [email or web address] In-Office Order, Internal Use Only DO Not Attach Compendium DO Not Attach Compendium, Do Not Delete/merge, [id number] 01/03/2024 09:43:10 Surgeries None recorded. Imaging None recorded. Medication Orders cyclobenz aprine 10 mg tablet 2023 [email or web address] [facility] [address], [place], [address], 01/03/2024 10:22:44 bupivacai ne HCl 0.5 % (5 mg/mL) injection solution [address], [place], [address], 03/01/2024 13:33:18 Kenalog 10 mg/mL suspensio n for injection [address], [place], [address], 03/01/2024 13:33:30 Patient TargetsNo targets recorded. Patient InstructionsNo instructions recorded. Reason for Referral None Reported. Results Created Date Observation Date Name Description Value Unit Range Abnormal Flag Note LastModifiedBy Organization Detail LastModifiedTime 12/13/19 24 XR, shoul mark No observ ation record ed. [email or web address] [facility] [address] [facility] [address] [facility] [address], [place], [address], 12/13/2023 09:17:57 02/09/20 24 02/09/2024 imagi ng/di agnos tic resul t No observ ation record ed. [facility] [address], [place], [address], 02/09/2024 06:31:48 02/09/20 24 02/09/2024 imagi ng/di agnos tic resul t No observ ation record ed. [address] [facility] [facility] [employer], [place], [address], 02/09/2024 06:39:16 02/09/20 24 02/09/2024 imagi ng/di agnos tic resul t No observ ation record ed. [address] [facility], [place], [address], 02/09/2024 07:07:16 02/09/20 24 02/09/2024 imagi ng/di agnos tic resul t No observ ation record ed. [address] [facility], [place], [address], 02/09/2024 08:39:10 02/10/20 24 02/10/2024 imagi ng/di agnos tic resul t No observ ation record ed. [address] [facility], [place], [address], 02/10/2024 16:54:29 02/16/20 24 02/15/2024 imagi ng/di agnos tic resul t No observ ation record ed. [address] [facility], [place], [address], 02/16/2024 09:56:53 03/01/19 25 02/09/2024 CT, chest , w/o contr ast No observ ation record ed. BARCODE Not Available 2024 14:43:15 Result Notes None recorded. Problems Name Problem SNOMED Code Status Onset Date Resolution Date Notes Provider Name and Address Organization Details Recorded Time Bipolar disorder 24243965 Active Not Available [facility] 3 00:53:11 Calcific tendinitis of shoulder 87413543 Active Not Available [facility] 3 00:53:11 Attention deficit hyperactivity disorder, predominantly inattentive type 27819345 Active Not Available [facility] 3 00:53:11 Osteoarthriti s 136734157 Active Not Available [facility] 3 00:53:11 Essential hypertension 87551355 Active Not Available [facility] 3 00:53:12 Allergic rhinitis 02811804 Active Not Available [facility] 3 00:53:12 Diabetes mellitus 46205056 Active Not Available [facility] 3 00:53:12 Obstructive sleep apnea syndrome 31311346 Active 2021 Not Available [facility] 3 00:53:12 Sj? ? ?gren's syndrome 84858126 Active Not Available [facility] 3 00:53:12 Ex-smoker 1182721 Active Not Available [facility] 3 00:53:12 Chronic ulcerative proctitis 07562450 Active 2022 Laura Grider MD [address], [place], [address] , [employer] [facility] [employer] [facility] 3 09:54:31 Vitamin D deficiency 82153703 Active 2022 Laura Grider MD [address], [place], [address] , [facility] 3 09:57:13 Hyperlipidemi a 43918613 Active 2022 Laura Grider MD [address], [place], [address] , [employer] [facility] 3 09:57:58 Mixed anxiety and depressive disorder 721222742 Active 2022 Laura Grider MD [address], [place], [address] , [employer] [facility] 3 15:40:00 Iron deficiency 11921680 Active 2023 MARION Orellana [address], [place], [address] , [employer] [facility] [employer] [facility] 4 09:52:22 Cobalamin deficiency 013934808 Active 2023 MARION Orellana [address], [place], [address] , [facility] [employer] [facility] 4 14:29:47 Dyspnea on exertion 89870858 Active 2024 Ronny uFlton MD [address], [place], [address] , [facility] [employer] [facility] [employer] [facility] 5 10:48:26 Notes:Medical History: Anxie ty/Bipolar depression/ADHD [...] catheterization 2024 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 Procedures Surgical History Date Name Laterality Status Provider Name and Address Organization Details Recorded Time 01/03/20 24 Ortho - Cortisone Injection completed Kathy Ross NP [address], [place], [address], [facility] [employer] 01/03/2024 15:00:40 12/13/19 24 Ortho - Cortisone Injection completed Flaco Denise MD [address], [place], [address], [facility] [employer] [facility] 12/13/2023 10:33:59 07/05/19 24 Cortisone Injection (Dequervains/ Greater Trochantric/ Lateral Epicondylitis/ Shoulder/ Subacromial Space/ Knee or Trigger Finger) completed Laura Grider MD [address], [place], [address], [facility] [employer] 07/05/2023 08:50:43 06/20/19 24 Transitional_Ca re_Management completed Ce Hector RN [facility] [employer] [facility] 06/20/2023 16:41:15 01/05/20 23 Cortisone Injection (Dequervains/ Greater Trochantric/ Lateral Epicondylitis/ Shoulder/ Subacromial Space/ Knee or Trigger Finger) completed Laura Grider MD [address], [place], [address], [facility] 01/19/2023 19:14:01 09/02/19 23 Cortisone Injection (Dequervains/ Greater Trochantric/ Lateral Epicondylitis/ Shoulder/ Subacromial Space/ Knee or Trigger Finger) completed SHARA Acosta [address], [place], [address], [employer] 08/31/2022 08:22:44 07/01/19 23 Colonoscopy completed Hope Zamora LPN [facility] 06/30/2022 14:35:15 Knee Replacement completed Not Available [facility] 04/20/2022 00:47:57 procedure on urinary bladder completed Not Available [facility] 04/20/2022 00:47:57 Knee Replacement completed Not Available [facility] 04/20/2022 00:47:57 Imaging Results None recorded. Procedure Notes None recorded. Medical Equipment None Reported. Allergies Allergen ID Allergen Name Allergen Category Reaction Reaction Severity Criticality Documentation Date Start Date Code Code System Note Provider Name and Address Organization Details Recorded Time 1284 triamcino lone medicatio n Not available Not available Not available 04/20/2022 00099 RxNorm OINT Not Available [facility] 3 01:02:05 1285 codeine medicatio n itching Not available Not available 04/20/2022 2670 RxNorm Not Available [facility] 3 01:02:05 Medications Name Sig Start Date [...] suspension for injection in office 03/01 completed NDC: [id number] Not Available Not Available Not [...] propionate 50 mcg/actuat ion nasal spray,susp ension [place] 1 spray every day by intranasa l [...] Not Available Not Available Not Available Fluvirin 45 mcg (15 mcg x 3)/0.5 mL [...] 2nd Gen Pen Needle 32 gauge x /32 12/11 completed Not Available Not Available Not [...] Not Available Vitals Date Recorded Body height Provider Name an d Address Organization Details Last Updated DateTime 01/03/2024 170.18 cm Nola Choudhury [facility] [employer] 01/03/2024 09:25:13 Social History Question Answer Notes LastModified by Organizat ion Details LastModified Time Tobacco Smoking Status Former Smoker Not Available [employer] 04/20/2022 00:45:45 Do You Have An Advance Directive? Yes MIGRATION.37347 47581 Information not available 04/20/2022 What Is Your Level Of Alcohol Consumption? None MIGRATION.01295 68924 Information not available 04/20/2022 Are You Blind Or Do You Have Difficulty Seeing? No MIGRATION.33435 91963 Information not available 04/20/2022 What Is Your Level Of Caffeine Consumption? Occasional MIGRATION.61572 34339 Information not available 04/20/2022 How Much Tobacco Do You Chew? None MIGRATION.69412 46623 Information not available 04/20/2022 In The 14 Days Before Symptom Onset, Have You Had Close Contact With A Laboratory-confi rmed COVID-19 While That Case Was Ill? No MIGRATION.97989 39062 Information not available 04/20/2022 In The 14 Days Before Symptom Onset, Have You Had Close Contact With A Person Who Is Under Investigation For COVID-19 While That Person Was Ill? No MIGRATION.82599 54779 Information not available 04/20/2022 Are You Deaf Or Do You Have Serious Difficulty Hearing? No MIGRATION.12522 97749 Information not available 04/20/2022 What Type Of Diet Are You Following? REGULAR MIGRATION.80062 92819 Information not available 04/20/2022 Which Illicit Or Recreational Drugs Have You Used? None MIGRATION.30297 50508 Information not available 04/20/2022 Do You Or Have You Ever Used E-cigarettes Or Vape? Never Used Electronic Cigarettes MIGRATION.69168 40884 Information not available 04/20/2022 Do You Have An Electrostatic Air Filter? No MIGRATION.00008 18934 Information not available 04/20/2022 What Is Your Occupation? Retired MIGRATION.08961 23502 Information not available 04/20/2022 Do You Have A Humidifier? Yes MIGRATION.69086 87904 Information not available 04/20/2022 Do You Use Insect Repellent Routinely? Yes MIGRATION.47730 60890 Information not available 04/20/2022 Do You Have A Medical Power Of Grey Washer? Yes MIGRATION.83168 31897 Information not available 04/20/2022 Do You Have Moisture Problems In Your Home? No MIGRATION.84723 51390 Information not available 04/20/2022 What Was The Date Of Your Most Recent Tobacco Screening? 03/07/2024 Information not available 03/07/2024 Do You Have Any Pets? Yes MIGRATION.20935 96039 Information not available 04/20/2022 Do You Use Your Seat Belt Or Car Seat Routinely? Yes Information not available 03/07/2024 Do You Have Smoke And Carbon Monoxide Detectors In Your Home? Yes MIGRATION.98991 73176 Information not available 04/20/2022 Are You Passively Exposed To Smoke? No MIGRATION.89766 86260 Information not available 04/20/2022 Do You Or Have You Ever Used Smokeless Tobacco? Never Used Smokeless Tobacco MIGRATION.84417 09651 Information not available 04/20/2022 How Much Tobacco Do You Smoke? No MIGRATION.09544 54439 Information not available 04/20/2022 Do You Feel Stressed (tense, Restless, Nervous, Or Anxious, Or Unable To Sleep At Night)? CH8084-4 MIGRATION.52110 10852 Information not available 04/20/2022 Do You Use Any Illicit Or Recreational Drugs? No MIGRATION.43001 17704 Information not available 04/20/2022 Do You Use Sunscreen Routinely? Yes MIGRATION.71837 90980 Information not available 04/20/2022 Have You Recently Traveled Abroad? No MIGRATION.70695 20943 Information not available 04/20/2022 Do You Or Have You Ever Used Any Other Forms Of Tobacco Or Nicotine? Yes Vape 0 Nicotine MIGRATION.33576 24573 Information not available 04/20/2022 Sex: Unknown Functional Status Question Answer Note LastModified by [employer] Details LastModified Time Do you have difficulty walking or climbing stairs? No Running into things-clum sy pt stated MIGRATION.677141 1594 Information not available 04/20/2022 Do you have transportation difficulties? No MIGRATION.504448 8239 Information not available 04/20/2022 Are you able to walk? YESWOREST MIGRATION.498194 3924 Information not available 04/20/2022 Do you have difficulty doing errands alone? No MIGRATION.430689 8986 Information not available 04/20/2022 Are you able to care for yourself? Yes MIGRATION.378971 6778 Information not available 04/20/2022 Do you have difficulty dressing or bathing? No MIGRATION.243251 7037 Information not available 04/20/2022 What is your exercise level? None MIGRATION.772713 8070 Information not available 04/20/2022 Mental Status Question Answer Note LastModified by Organizat ion Details LastModified Time Do you have difficulty concentrating, remembering or making decisions? No MIGRATION.543319523 6 Information not available 04/20/2022 Family History [...] Vaccine Type Date Status Note Provider Nam leanne and Address Organization Details Recorded Time Influenza, high-dose, quadrivalent, PF 3 completed Ce Hector RN null, [facility] 12/08/2022 11:49:45 COVID-19, mRNA, LNP-S, PF, shoaib-sucrose, 30 mcg/0.3 mL 3 completed Ce Hector RN null, [facility] 12/08/2022 11:50:25 RSV, recombinant, protein subunit RSVpreF, adjuvant reconstituted, 0.5 mL, PF 3 completed Ce Hector RN null, [facility] 01/09/2023 08:50:20 COVID-19, mRNA, LNP-S, PF, shoaib-sucrose, 30 mcg/0.3 mL 4 completed Bailee Perez RN null, [facility] 11/24/2023 08:40:45 Influenza, high-dose, trivalent, PF 4 completed Bailee Perez RN null, [facility] 11/24/2023 08:45:19 Influenza, split virus, trivalent, preservative 3 completed Melany Ruano CMA null, [facility] 09/01/2022 11:26:16 Influenza, split virus, trivalent, PF 3 completed Melany Ruano CMA null, [facility] 09/01/2022 11:26:16 Influenza, high-dose, quadrivalent, PF 2 completed Melany Ruano CMA null, [facility] 09/01/2022 11:26:16 COVID-19, mRNA, LNP-S, bivalent, PF, 30 mcg/0.3 mL dose 2 completed Melany Ruano CMA null, [facility] [employer] [facility] 09/01/2022 11:26:16 Hep A-Hep B 2 completed SRIRAM Allen, [facility] [employer] [facility] 09/01/2022 11:26:16 Influenza, split virus, trivalent, preservative 3 completed Not Available [facility] 04/20/2022 01:01:48 Influenza, high-dose, quadrivalent, PF 1 completed Not Available [facility] 04/20/2022 01:01:49 pneumococcal polysaccharide PPV23 0 completed Not Available [facility] 04/20/2022 01:01:49 Pneumococcal conjugate PCV 13 8 completed Not Available [facility] 04/20/2022 01:01:49 Influenza, split virus, quadrivalent, PF 7 completed Not Available [facility] 04/20/2022 01:01:49 Influenza, split virus, quadrivalent, PF 8 completed Not Available [facility] 04/20/2022 01:01:49 Tdap 4 completed Not Available [facility] 04/20/2022 01:01:49 Tdap 4 completed Katelyn Pearson RN null, [facility] [employer] [facility] 10/24/2023 09:34:20 Past Encounters Encounter ID Performer Location Encounter Start Date Encounter Closed Date Diagnosis/Indication Diagnosis SNOMED-CT Code Diagnosis ICD10 Code Diagnosis Note [id number] Flaco Denise MD [facility] [address] [place] [address] 12/13/2023 08:53:32 12/13/2023 10:40:27 Bilateral shoulder joint pain 9412249667 2507082 M25.511 M25.607 [id number] Kathy Ross NP [facility] [address] [place] [address] 01/03/2024 09:22:30 01/03/2024 11:17:36 Pain of left shoulder joint 2529043032 0355333 M25.512 Health Concerns Section Related Observation LastModified by Organization Detai ls LastModified Time None Recorded Concern Status LastModified by Organization Details LastModified Time None Recorded Payers Encounter Date Sequence Insurance Name Policy Number Policy Benoit Covered Member ID Benoit Member ID Guarantor Name 01/03/2024 1 [employer] (MEDICARE REPLACEMENT PPO) [id number] Yaneth Duarte [id number] Yaneth Duarte OBGyn Episode No OBEpisode recorded.
--- OUTSIDE RECORDS SUMMARY | 2024-03-08 00:51 | XMS_ITS | Continuity of Care Document ---
Author Organization [place] - [facility], [facility] [place] Address [address] [place] [address] Care Team Providers Care Wafer Cleaner Name Role Phone MARION GREGG ZACHARY Primary Care Provider [phone] MARION GREGG ZACHARY Referring Provider Assessment Encounter Date Assessment Date Assessment LastModified by Organization Details LastModified Time 12/13/2023 12/13/2023 68-year-old female presents for evaluation of her bilateral shoulders, [...] shoulder. She can actively lift to proximally 30? ? ?. Full passive motion, positive drop-arm. Positive ER [...] as needed. [email or web address] Not available 12/13/2023 10:33:46 Plan of Treatment Reminders Order Date Submit Date Provider Last Modified By Organization Details Last Modified Time Details Appointments Any 2024 08:30A Stephanie Lima NP Not available Not available Not available Lab None recorded. Referral None recorded. Procedures injection /aspirati on joint/bur sa (PROC) 2023 [email or web address] In-Office Order, Internal Use Only DO Not Attach Compendium DO Not Attach Compendium, Do Not Delete/merge, [id number] 12/13/2023 10:03:08 Surgeries None recorded. Imaging XR, shoulder 2023 [email or web address] [facility] [place], [address], [place], [address], 12/13/2023 23:37:07 Medication Orders bupivacai ne HCl 0.5 % (5 mg/mL) injection solution 2023 [email or web address] [address], [address], [place], [address], 03/01/2024 13:33:18 Kenalog 10 mg/mL suspensio n for injection [email or web address] [facility] [address], [address], [place], [address], 03/01/2024 13:33:30 meloxicam 15 mg tablet [email or web address] [facility] [address], [address], [place], [address], 12/13/2023 23:37:07 Patient TargetsNo targets recorded. Patient InstructionsNo instructions recorded. Reason for Referral None Reported. Results Created Date Observation Date Name Description Value Unit Range Abnormal Flag Note LastModifiedBy Organization Detail LastModifiedTime 12/13/19 24 XR, shoul mark No observ ation record ed. [email or web address] [facility] [place] [address], [place], [address], 12/13/2023 09:17:57 02/09/20 24 02/09/2024 imagi ng/di agnos tic resul t No observ ation record ed. [address], [place], [address], 02/09/2024 06:31:48 02/09/20 24 02/09/2024 imagi ng/di agnos tic resul t No observ ation record ed. [address], [place], [address], 02/09/2024 06:39:16 02/09/20 24 02/09/2024 imagi ng/di agnos tic resul t No observ ation record ed. [address], [place], [address], 02/09/2024 07:07:16 02/09/20 24 02/09/2024 imagi ng/di agnos tic resul t No observ ation record ed. [address], [place], [address], 02/09/2024 08:39:10 02/10/20 24 02/10/2024 imagi ng/di agnos tic resul t No observ ation record ed. [address], [place], [address], 02/10/2024 16:54:29 02/16/20 24 02/15/2024 imagi ng/di agnos tic resul t No observ ation record ed. [address], [place], [address], 02/16/2024 09:56:53 03/01/19 25 02/09/2024 CT, chest , w/o contr ast No observ ation record ed. BARCODE Not Available 2024 14:43:15 Result Notes None recorded. Problems Name Problem SNOMED Code Status Onset Date Resolution Date Notes Provider Name and Address Organization Details Recorded Time Bipolar disorder 61170311 Active Not Available [facility] 00:53:11 Calcific tendinitis of shoulder 13627022 Active Not Available [facility] 3 00:53:11 Attention deficit hyperactivity disorder, predominantly inattentive type 64868122 Active Not Available [facility] 3 00:53:11 Osteoarthriti s 374858233 Active Not Available [facility] 3 00:53:11 Essential hypertension 88917100 Active Not Available [facility] 3 00:53:12 Allergic rhinitis 91041941 Active Not Available [facility] 3 00:53:12 Diabetes mellitus 31338611 Active Not Available [facility] 3 00:53:12 Obstructive sleep apnea syndrome 79349431 Active 2021 Not Available [facility] 3 00:53:12 Sj? ? ?gren's syndrome 43264806 Active Not Available [facility] 3 00:53:12 Ex-smoker 4979890 Active Not Available [facility] 3 00:53:12 Chronic ulcerative proctitis 70197994 Active 2022 Laura Grider MD [address] [address], [place], [address] , [facility] [employer] 3 09:54:31 Vitamin D deficiency 08218671 Active 2022 Laura Grider MD [address], [place], [address] , [facility] [employer] 3 09:57:13 Hyperlipidemi a 71218396 Active 2022 Laura Grider MD [address], [place], [address] , [facility] [employer] [facility] [employer] [facility] 3 09:57:58 Mixed anxiety and depressive disorder 930101966 Active 2022 Laura Grider MD [address], [place], [address] , [facility] [employer] [facility] [employer] [facility] 3 15:40:00 Iron deficiency 43507816 Active 2023 ROBIN Orellana-C [address], [place], [address] , [facility] [employer] [facility] [employer] [facility] 4 09:52:22 Cobalamin deficiency 204667754 Active 2023 ROBIN Orellana-Unique [address], [place], [address] , [facility] [employer] [facility] [employer] [facility] 4 14:29:47 Dyspnea on exertion 40379512 Active 2024 Ronny Fulton MD [address], [place], [address] , [facility] [employer] [facility] [employer] 5 10:48:26 Notes:Medical History: Anxie ty/Bipolar depression/ADHD [...] C- sections 1982, 1987, 1988 Bladder suspension 1987 Bladder revision 1987 WIL 1988 Left knee replacement 2004 Right knee replacement 2007 Cardiac catheterization 2024 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 Procedures Surgical History Date Name Laterality Status Provider Name and Address Organization Details Recorded Time 01/03/20 24 Ortho - Cortisone Injection completed Kathy Ross NP [address], [place], [address], [facility] [employer] [facility] [employer] [facility] 01/03/2024 15:00:40 12/13/19 24 Ortho - Cortisone Injection completed Flaco Denise MD [address], [place], [address], [facility] [employer] [facility] 12/13/2023 10:33:59 07/05/19 24 Cortisone Injection (Dequervains/ Greater Trochantric/ Lateral Epicondylitis/ Shoulder/ Subacromial Space/ Knee or Trigger Finger) completed Laura Grider MD [address], [place], [address], [facility] [employer] [facility] 07/05/2023 08:50:43 06/20/19 24 Transitional_Ca re_Management completed Ce Hector RN [facility] [employer] [facility] 06/20/2023 16:41:15 01/05/20 23 Cortisone Injection (Dequervains/ Greater Trochantric/ Lateral Epicondylitis/ Shoulder/ Subacromial Space/ Knee or Trigger Finger) completed Laura Grider MD [address], [place], [address], [facility] [employer] [facility] 01/19/2023 19:14:01 09/02/19 23 Cortisone Injection (Dequervains/ Greater Trochantric/ Lateral Epicondylitis/ Shoulder/ Subacromial Space/ Knee or Trigger Finger) completed SHARA Acosta [address], [facility] [facility] [address], [place], [address], [facility] [employer] [facility] 08/31/2022 08:22:44 07/01/19 23 Colonoscopy completed Hope Zamora LPN [facility] [employer] [facility] 06/30/2022 14:35:15 Knee Replacement completed Not Available [facility] 04/20/2022 00:47:57 procedure on urinary bladder completed Not Available [facility] 04/20/2022 00:47:57 Knee Replacement completed Not Available [facility] 04/20/2022 00:47:57 Imaging Results Imaging Date Name Status LastModified by Organiz ation Details LastModified Time 12/13/2023 XR, shoulder completed [email or web address] [place] [address], [place], [address], 12/13/2023 09:17:57 Procedure Notes None recorded. Medical Equipment None Reported. Allergies Allergen ID Allergen Name Allergen Category Reaction Reaction Severity Criticality Documentation Date Start Date Code Code System Note Provider Name and Address Organization Details Recorded Time 1284 triamcino lone medicatio n Not available Not available Not available 04/20/2022 03192 RxNorm OINT Not Available [facility] 3 01:02:05 1285 codeine medicatio n itching Not available Not available 04/20/2022 2670 RxNorm Not Available [facility] 3 01:02:05 Medications Name Sig Start Date [...] day by oral route for 10 days. 10/22 /2024 completed Not Available Not Available Not [...] propionate 50 mcg/actuat ion nasal spray,susp ension Vermilion 1 spray every day by intranasa l [...] active Not Available Not Available Not Available DianeTojesse Delarjun Lancets 33 gauge 09/30 completed Not Available [...] Not Available Not Available Not Available Fluvirin 7581-5550 45 mcg (15 mcg x 3)/0.5 mL intramuscu lar suspension 01/04 completed Not Available Not Available Not Available marijuana (cannabis) medical marijuana 06/03 completed Not Available Not Available Not Available Saxenda 3 mg/0.5 mL (18 mg/3 mL) subcutaneo us pen injector Inject 0.6 mg every day by subcutane ous route. 02/05 completed Not Available Not Available Not Available Flulaval Quad 2629-6909 60 mcg (15 mcg x 4)/0.5 mL [...] completed Not Available Not Available Not Available Basagllouie KwikPen U-100 Insulin 100 unit/mL (3 mL) [...] Updated DateTime 12/13/2023 170.18 cm 27.4 kg/m2 40482.66 g Lucero Christopher CNA [place] [facility] 12/13/2023 09:11:17 Social History Question Answer Notes LastModified by Organizat ion Details LastModified Time Tobacco Smoking Status Former Smoker Not Available [facility] 04/20/2022 00:45:45 Do You Have An Advance Directive? Yes MIGRATION.62396 32576 Information not available 04/20/2022 What Is Your Level Of Alcohol Consumption? None MIGRATION.93213 04468 Information not available 04/20/2022 Are You Blind Or Do You Have Difficulty Seeing? No MIGRATION.08536 34430 Information not available 04/20/2022 What Is Your Level Of Caffeine Consumption? Occasional MIGRATION.05121 82921 Information not available 04/20/2022 How Much Tobacco Do You Chew? None MIGRATION.68166 37027 Information not available 04/20/2022 In The 14 Days Before Symptom Onset, Have You Had Close Contact With A Laboratory-confi rmed COVID-19 While That Case Was Ill? No MIGRATION.79667 93370 Information not available 04/20/2022 In The 14 Days Before Symptom Onset, Have You Had Close Contact With A Person Who Is Under Investigation For COVID-19 While That Person Was Ill? No MIGRATION.11892 19369 Information not available 04/20/2022 Are You Deaf Or Do You Have Serious Difficulty Hearing? No MIGRATION.00576 77050 Information not available 04/20/2022 What Type Of Diet Are You Following? REGULAR MIGRATION.07726 54934 Information not available 04/20/2022 Which Illicit Or Recreational Drugs Have You Used? None MIGRATION.74056 33748 Information not available 04/20/2022 Do You Or Have You Ever Used E-cigarettes Or Vape? Never Used Electronic Cigarettes MIGRATION.51379 66661 Information not available 04/20/2022 Do You Have An Electrostatic Air Filter? No MIGRATION.21711 98433 Information not available 04/20/2022 What Is Your Occupation? Retired MIGRATION.78550 26638 Information not available 04/20/2022 Do You Have A Humidifier? Yes MIGRATION.05002 92531 Information not available 04/20/2022 Do You Use Insect Repellent Routinely? Yes MIGRATION.60491 42579 Information not available 04/20/2022 Do You Have A Medical Power Of Truck Body Builder? Yes MIGRATION.91360 28833 Information not available 04/20/2022 Do You Have Moisture Problems In Your Home? No MIGRATION.61747 41692 Information not available 04/20/2022 What Was The Date Of Your Most Recent Tobacco Screening? 03/07/2024 Information not available 03/07/2024 Do You Have Any Pets? Yes MIGRATION.39224 07708 Information not available 04/20/2022 Do You Use Your Seat Belt Or Car Seat Routinely? Yes Information not available 03/07/2024 Do You Have Smoke And Carbon Monoxide Detectors In Your Home? Yes MIGRATION.17752 93450 Information not available 04/20/2022 Are You Passively Exposed To Smoke? No MIGRATION.08786 18214 Information not available 04/20/2022 Do You Or Have You Ever Used Smokeless Tobacco? Never Used Smokeless Tobacco MIGRATION.25628 00193 Information not available 04/20/2022 How Much Tobacco Do You Smoke? No MIGRATION.70682 71203 Information not available 04/20/2022 Do You Feel Stressed (tense, Restless, Nervous, Or Anxious, Or Unable To Sleep At Night)? [id number] MIGRATION.89128 52564 Information not available 04/20/2022 Do You Use Any Illicit Or Recreational Drugs? No MIGRATION.67547 43305 Information not available 04/20/2022 Do You Use Sunscreen Routinely? Yes MIGRATION.34770 46902 Information not available 04/20/2022 Have You Recently Traveled Abroad? No MIGRATION.57037 11479 Information not available 04/20/2022 Do You Or Have You Ever Used Any Other Forms Of Tobacco Or Nicotine? Yes Vape 0 Nicotine MIGRATION.25066 00803 Information not available 04/20/2022 Sex: Unknown Functional Status Question Answer Note LastModified by Organizat ion Details LastModified Time Do you have difficulty walking or climbing stairs? No Running into things-clum sy pt stated MIGRATION.213988 0455 Information not available 04/20/2022 Do you have transportation difficulties? No MIGRATION.976577 2444 Information not available 04/20/2022 Are you able to walk? YESWOREST MIGRATION.884417 3210 Information not available 04/20/2022 Do you have difficulty doing errands alone? No MIGRATION.957178 1051 Information not available 04/20/2022 Are you able to care for yourself? Yes MIGRATION.733005 2250 Information not available 04/20/2022 Do you have difficulty dressing or bathing? No MIGRATION.077015 5318 Information not available 04/20/2022 What is your exercise level? None MIGRATION.515754 7859 Information not available 04/20/2022 Mental Status Question Answer Note LastModified by Organizat ion Details LastModified Time Do you have difficulty concentrating, remembering or making decisions? No MIGRATION.856121383 6 Information not available 04/20/2022 Family History [...] PF 3 completed Ce Hector RN null, [facility] [employer] [facility] 12/08/2022 11:49:45 COVID-19, mRNA, LNP-S, PF, shoaib-sucrose, 30 mcg/0.3 mL 3 completed Ce Hector RN null, [facility] [employer] [facility] 12/08/2022 11:50:25 RSV, recombinant, protein subunit RSVpreF, adjuvant reconstituted, 0.5 mL, PF 3 completed Ce Hector RN null, [facility] [employer] [facility] 01/09/2023 08:50:20 COVID-19, mRNA, LNP-S, PF, shoaib-sucrose, 30 mcg/0.3 mL 4 completed Bailee Perez RN null, [facility] 11/24/2023 08:40:45 Influenza, high-dose, trivalent, PF 4 completed Bailee Perez RN null, [facility] 11/24/2023 08:45:19 Influenza, split virus, trivalent, preservative 3 completed Melany Ruano CMA null, [facility] 09/01/2022 11:26:16 Influenza, split virus, trivalent, PF 3 completed Melany Ruano CMA null, [facility] 09/01/2022 11:26:16 Influenza, high-dose, quadrivalent, PF 2 completed SRIRAM Allen, [facility] 09/01/2022 11:26:16 COVID-19, mRNA, LNP-S, bivalent, PF, 30 mcg/0.3 mL dose 2 completed Melany Ruano CMA null, [facility] 09/01/2022 11:26:16 Hep A-Hep B 2 completed Melany Ruano CMA null, [facility] 09/01/2022 11:26:16 Influenza, split virus, trivalent, preservative 3 completed Not Available [facility] 04/20/2022 01:01:48 Influenza, high-dose, quadrivalent, PF 1 completed Not Available [facility] 04/20/2022 01:01:49 pneumococcal polysaccharide PPV23 0 completed Not Available [facility] 04/20/2022 01:01:49 Pneumococcal conjugate PCV 13 8 completed Not Available [facility] 04/20/2022 01:01:49 Influenza, split virus, quadrivalent, PF 7 completed Not Available [facility] 04/20/2022 01:01:49 Influenza, split virus, quadrivalent, PF 8 completed Not Available [facility] 04/20/2022 01:01:49 Tdap 4 completed Not Available [facility] 04/20/2022 01:01:49 Tdap 4 completed REJI Singleton, [place] [facility] 10/24/2023 09:34:20 Past Encounters Encounter ID Performer Location Encounter Start Date Encounter Closed Date Diagnosis/Indication Diagnosis SNOMED-CT Code Diagnosis ICD10 Code Diagnosis Note [id number] MARION Orellana [facility] Primary Care [facility] [address] [place] [address] 11/23/2023 13:51:40 11/23/2023 15:16:42 Chronic obstructive pulmonary disease 61053545 J44.9 noting increased dyspneauna ble to wear cpap last nighttrial trelegy Seasonal allergy 6352328 04 J30.2 Cobalamin deficiency 190 733370 E53.8 Pain of ri ght shoulder joint 3520094268 1675830 M25.511 pt requesting shoulder injectiond eclines oral steroidsor tho referral giventrial lidocaine patches Referral needed [id number] Z76.89 [id number] Flaco Denise MD [facility] [place] [address] [place] [address] 12/13/2023 08:53:32 12/13/2023 10:40:27 Bilateral shoulder joint pain 8940188069 7172131 M25.511 M25.512 Health Concerns Section Related Observation LastModified by Organization Detai ls LastModified Time None Recorded Concern Status LastModified by Organization Details LastModified Time None Recorded Payers Encounter Date Sequence Insurance Name Policy Number Policy Benoit Covered Member ID Benoit Member ID Guarantor Name 12/13/2023 1 [employer] (MEDICARE REPLACEMENT PPO) [id number] Yaneth Duarte [id number] Yaneth Duarte OBGyn Episode No OBEpisode recorded.
== END 2024-03-01 14:05 | disposition home or self-care (01) ==
PROVIDERS: PCP Family Medicine; Visit Provider Internal Medicine
PROC: 4A023N7 Measurement of Cardiac Sampling and Pressure, Left Heart, Percutaneous Approach (ICD-10-PCS; CPT 93452; principal; 2024-03-01 08:30)
DX: I25.10 Atherosclerotic heart disease of native coronary artery without angina pectoris (principal); I11.0 Hypertensive heart disease with heart failure; I50.30 Unspecified diastolic (congestive) heart failure; E78.2 Mixed hyperlipidemia; E11.9 Type 2 diabetes mellitus without complications; J44.9 Chronic obstructive pulmonary disease, unspecified; E55.9 Vitamin D deficiency, unspecified; R15.2 Fecal urgency; F41.9 Anxiety disorder, unspecified; F31.9 Bipolar disorder, unspecified; G47.33 Obstructive sleep apnea (adult) (pediatric); M19.90 Unspecified osteoarthritis, unspecified site; F17.290 Nicotine dependence, other tobacco product, uncomplicated; Z79.82 Long term (current) use of aspirin; Z79.84 Long term (current) use of oral hypoglycemic drugs; Z79.85 Long-term (current) use of injectable non-insulin antidiabetic drugs; Z99.89 Dependence on other enabling machines and devices; Z98.890 Other specified postprocedural states; Z87.19 Personal history of other diseases of the digestive system; Z80.51 Family history of malignant neoplasm of kidney
CPT/HCPCS: 36415; 80048; 82948; 85025; 93458; C1769; C1887; C1894; J1644; J2003; J2250; J2305; J2371; J3010; J7030; J7040

== ENCOUNTER 2024-05-15 15:29 | Outpatient (CLI) | payer MEDICARE, SELFPAY ==
[2024-05-15 16:13] LABS: Alanine Aminotransferase 24 U/L (6-35); Albumin Level 4.3 g/dL (3.5-5.1); Alkaline Phosphatase 117 U/L (38-126); Anion Gap 11 mmol/L (4-12); Aspartate Amino Transferase 26 U/L (14-36); Bilirubin,Total 0.4 mg/dL (0.2-1.3); Blood Urea Nitrogen 22 mg/dL (7-17); Calcium 9.6 mg/dL (8.4-10.2); Carbon Dioxide 24 mmol/L (22-30); Chloride 103 mmol/L (98-107); Cholesterol 119 mg/dL (0-200); Estimated Glomerular Filt Rate > 60; Glucose 94 mg/dL (65-110); HDL Direct 30 mg/dL; Potassium 4.3 mmol/L (3.4-5.0); Sodium 138 mmol/L (137-145); Triglycerides 311 mg/dL (<150)
[2024-05-15 16:17] LABS: CRP < 0.5 mg/dL (<1.0)
[2024-05-15 16:24] LABS: Creatinine Urine 50.6 mg/dL
[2024-05-15 16:24] LABS: LDL Cholesterol Direct 51 mg/dL
[2024-05-15 16:25] LABS: Erythrocyte Sedimentation Rate 17 mm/hr (0-20)
[2024-05-15 16:32] LABS: Microalbumin Urine Random < 6.0 mg/L (0-16.7)
[2024-05-15 16:33] LABS: MALB Creatinine Ratio < 11.9 mg/g (0-30)
[2024-05-15 16:38] LABS: Vitamin D 25 Hydroxy 40.8 ng/mL
[2024-05-15 16:39] LABS: Free T4 Free Thyroxine 0.79 ng/dL (0.78-2.19)
[2024-05-15 16:44] LABS: Thyroid Stimulating Hormone < 0.015 uIU/mL (0.465-4.680)
--- OUTSIDE RECORDS SUMMARY | 2024-05-15 16:48 | XMS_ITS | Continuity of Care Document ---
Author Organization [facility] Address [address] [place] [address] Phone Care Team Providers Care Nuclear Medical Tech Name Role Phone Kimani Lopez MD Unavailable Unavailable Allergies, Adverse Reactions, Alerts Substance Reaction Status Criticality codeine Other Active No Information codeine Rash Active No Information Medications Medication Instructions Dosage Effective Dates (start - stop) Status Comments metoprolol succinate ER 25 mg tablet,extended release 24 hr take 1 tablet by oral route every day 25 MG - Active Abilify 2 mg tablet take 1 tablet by oral route every day 2 MG - Active Xanax 0.25 mg tablet take 1 tablet by oral route 3 times every day 0.25 MG - Active Tylenol 325 mg capsule - Active Ozempic 1 mg/dose (4 mg/3 mL) subcutaneous pen injector inject (1MG) by subcutaneous route every week on the same day of each week 1 MG - Active aripiprazole 2 mg tablet take 1 tablet by oral route every day 2 MG - Active Vitamin B-12 50 mcg tablet - Active oxycodone 5 mg tablet take 1 tablet by oral route every 6 hours as needed for breakthrough pain staggered with hydrocodone. [facility] pain [facility]. - On Hold Surgery at [facility] 05/20/24. Overnight stay. Procedures Procedure Date Office/outpatient visit,est, mod 2024 BMI Documented Above Normal Limit F/U Pl an Doc Office/outpatient visit,est, mod 2024 X-ray exam shoulder complete, minimum 2 views Office/outpatient visit,new, mod 2023 Advance Directives Directive Yes / No Effective Date File Name No Information Encounters Encounter Description Practice Location Reason(s) For Visit Diagnoses Date Provider Providers Copied on Encounter [facility], [address] [place] [address], [id number], [place] tel:[phone] [facility] No Information 5 John Harman. [address] [place] [address], [place], [place], [id number] , [place]. tel:[phone] [facility]pa [facility]ient visit,[facility] [place], [place] [facility], [address] [place] [address], [id number], [place] tel:[phone] [facility] left shoulder pain (chief complaint) Complete rotatr-cuff tear/ruptr of left shoulder, not traumaOther specified arthritis, left shoulderBicipit al tendinitis, left shoulder John Harman. [address] [place] [address], [id number] , [place]. tel:[phone] Referring Provider: Kimani Gleason, [address] [place] [address], [place], [address] . tel:[phone] Office[facility]pa [facility]ient [facility] [place], [place] [facility], [address] [place] [address], [id number], [place] [phone] [facility] left shoulder pain (chief complaint) Pain in left shoulderComplet e rotatr-cuff tear/ruptr of left shoulder, not traumaBicipital tendinitis, left shoulderOther specified arthritis, left shoulder John Harman. [address] [place] [address], [id number] , [place]. tel:[phone] Referring Provider: Kimani Gleason, [address] [place] [address], [place], [address] . tel:[phone] Office/outpa tient visit,[facility], [address] [place] [address], [id number], [place] tel:[phone] [facility] left shoulder pain (chief complaint) right shoulder pain (chief complaint) Pain in left shoulder 4 John Harman. [address] [facility], [address], [place], [place], [id number] , [place]. tel: [phone] Family History Family Member Type Diagnosis Age At Onset Mother Problem (finding) Cancer, unknown Mother Problem (finding) Kidney Disease Payers Payer name Insurance type Covered alliance party ID Authoriza tidane(s) [employer] CI [id number] Social History Type Description Quantity Date Captured Comments Sex Female Smoking Status No Information Chief Complaint And Reason For Visit No Information Reason For Referral Reason For Referral No Information Plan Of Treatment Date Type Action Status Referral Ordered: X-ray exam shoulder complete, minimum 2 views LT shoulder ordered Referral Ordered: MRI Upper extr joint, w/o contrast LT shoulder ordered Referral Ordered: CT scan Upper Extrem W/o Contrast LT shoulder ordered Appointment Yaneth Duarte BOOKED Medication oxycodone 5 mg t ablet:take 1 tablet by oral route every 6 hours as needed for breakthrough pain staggered with hydrocodone. [facility] line pain med. On Hold History Of Present Illness Encounter Date Complaint History Of Prese nt Illness left shoulder pain Yaneth Duarte is a 68 year old female. The patient has known glenohumeral osteoarthritis and returns now in anticipation of planned shoulder arthroplasty having failed all reasonable non-operative treatments. In addition to the history today I have reviewed lab tests including: CBC, CMP, A1C. These results are compatible with proceeding to shoulder arthroplasty. She presents with pain, weakness and decreased range of motion on the left side. She states that the symptoms have been chronic non-traumatic. The symptoms occur constantly with intermittent worsening. The problem is worse. Currently the patient states that the symptoms are incapacitating. The pain is described as aching and sharp. The symptoms are aggravated by daily activities, reaching or use of the arm, moving the arm suddenly and sleeping in any position. In addition to left shoulder pain the patient is also experiencing decreased mobility and nocturnal awakening. Pertinent negatives include fever, radicular symptoms, numbness and weakness. The patient has had a previous x-ray. Prior treatments have included icing, medications, rest/activity cessation, prior injections all without adequate resolution. The patient has now failed greater than 6 months of non-operative treatment, had symptoms for greater than one year, and has daily pain limiting ADLs including sleep, self care. Attempts at the required PT only worsen her pain. They are indicated for shoulder arthroplasty. left shoulder pain Yaneth Duarte is a 68 year old female. In addition to the history obtained I have independently reviewed the MRI images of the shoulder as noted in the imaging section. She presents with pain on the left side. She states that the symptoms have been acute non-traumatic and began 5 months ago. The symptoms occur constantly with intermittent worsening. Currently the patient states that the symptoms are severe. The symptoms occur with activity. The pain radiates to the upper arm on the left side. The symptoms are aggravated by daily activities, lifting away from the body, moving the arm suddenly and sleeping in any position. Yaneth states that the symptoms are relieved by by prior injections (transiently). The most recent of the 3 injections was 10/22/23. In addition to left shoulder pain the patient is also experiencing nocturnal awakening and decreased mobility. Pertinent negatives include tingling in the arms. She has had rest, activity mods, icing/heat, NSAIDs, prior injections, MD directed strengthening. left shoulder pain Yaneth Duarte is a [...] No Information Instructions Date Instruction Additional Infor jefferson The patient has been cleared for shoulder arthroplasty. The patient has elected to proceed with left reverse total shoulder arthroplasty and open tenodesis to address biceps pathology which is contributing to her symptoms. We discussed possible conversion to reverse or hemiarthroplasty. Discussed risks, benefits, and alternatives, restrictions, rehabilitation, expected outcomes, and possible complications including but not limited to: , medical complication, DVT/PE, infection, loosening, instability, injury to nerves, blood vessels, and surrounding soft tissues, possible continued pain, perceived subjective failure, and possible need for future surgical intervention. The patient expressed understanding and would like to proceed. The patient plans to go home after discharge from the hospital. We discussed surgery will be at [facility] and the anticipated length of stay would likely be overnight due to her CHINO. We discussed the need for a nursing surgical services director at the time of surgery, my nurse practitioners role in the perioperative period, and the rationale for implant selection and surgical approach.. We discussed the importance of post-operative physical therapy and home exercises in the rehabilitation process. Questions answered, verbalized understanding, and she would like to proceed. Related to Bicipital tendinitis, left shoulder Given the patient's failure of a reasonable trial of non-operative treatment options and progression of symptoms to a level which preclude desired activities, we discussed they would be a candidate for left reverse total shoulder arthroplasty. We discussed in detail the risks, benefits, and alternatives of total shoulder arthroplasty, and the patient would like to proceed. We will make arrangements to have preoperative clearance obtained with assistance of the patient's primary care provider and any medical subspecialists as appropriate. We will coordinate appropriate dental clearance and pre-operative risk evaluation (appropriate BMI evaluation, diabetes control, skin preparation, etc) prior to surgery. I would like to see the patient back once this is all arranged to review in detail and make a final decision on operative intervention. We will obtain calibrated lateral, true AP views as well as pre-op 3D CT scan to template pre-operatively. Questions answered, verbalized understanding.ADDENDUM: Due to [employer] Medicare's ridiculous stipulation requiring any and all shoulder arthroplasty patient undergo at least 6 weeks of physical therapy regardless of the situation prior to approving a medically indicated and necessary surgery, we prescribed a 6-week course of physical therapy for this patient. She was able to attend I believe 1 or 2 visits but had to discontinue because of the severe pain in her surgically indicated left shoulder. We will proceed with surgery as planned and indicated that hopefully will honor their responsibilities to cover her medically appropriate procedures. Related to Pain in left shoulder Given the concern fo r a tear [...]
--- OUTSIDE RECORDS SUMMARY | 2024-05-15 16:48 | XMS_ITS | Referral Summary ---
Author Organization [facility] Address [address] [place] [address] Care Team Providers Care Training Lead Name Role Phone Cammie Woodruff OD Unavailable Osmany Foster MD Unavailable [phone] Jess Lima NP Primary Care Provider Encounters Date Type Department Care Team Description 05/02/2024 1:15 PM CDT Pre-Admission Testing [facility] Pre Anesthesia Testing [address] [place] [phone] Preop testing (Primary Dx) 04/25/2024 8:30 AM PARTICLEBOARD FACTORY WORKER - 04/25/2024 11:59 PM PARTICLEBOARD FACTORY WORKER Hospital Encounter [facility] - Imaging [address] [place] [phone] Kimani Lopez MD Left shoulder pain, unspecified chronicity Discharge Disposition: Discharge to home or self care 04/02/2024 4:06 PM PARTICLEBOARD FACTORY WORKER - 04/02/2024 11:59 PM PARTICLEBOARD FACTORY WORKER Hospital Encounter [facility] [id number] [place] [id number] Acute cough Discharge Disposition: Discharge to home or self care 04/02/2024 3:40 PM PARTICLEBOARD FACTORY WORKER Ancillary Procedure [facility] Imaging at [address] [phone] Acute cough 04/02/2024 3:15 PM PARTICLEBOARD FACTORY WORKER Office Visit [facility] Con[facility]ient Care at [address] [phone] Rylee Pagan NP Acute cough (Primary Dx) 03/05/2024 Orders Only [facility] Cardiology [address] [place] [address] [address] [place] [phone] Tomy Odonnell MD 02/20/2024 Orders Only [facility] Cardiology [address] [place] [address] [place] [phone] Keisha Persaud NP 02/20/2024 11:00 AM PARTICLEBOARD FACTORY WORKER Office Visit [place] [address] [place] [phone] Keisha Persaud NP Heart failure with preserved ejection fraction, unspecified HF chronicity (HCC) (Primary Dx); Chronic obstructive pulmonary disease, unspecified COPD type (HCC); Mixed hyperlipidemia; Primary hypertension 02/19/2024 Telephone [facility] Cardiology [address] [place] [address] [place] [phone] Seema Veras NP Fatigue; weakness 02/19/2024 Orders Only [address] [place] [phone] Nereyda Guthrie MD 02/16/2024 NHUNG IP Outreach [facility] Accountable Care Organization [address] [place], [place] [phone] Yolanda Parkinson MA 02/15/2024 Orders Only [facility] Cardiology [address] [place] [address] [address] [place] [phone] Tara Madrigal MD from Last 3 Months Allergies Active Allergy Reactions Criticality Noted Date Comments Sulfamethoxazole-Trimeth oprim Joint pain Low 08/18/2023 Codeine Itching,Rash,Other (See comments) Medium 01/22/2024 ITCHING is not an allergy, it is a known effect of all opioids. Triamcinolone Unknown 05/08/2023 Medications ARIPiprazole (ABILIFY) 30 mg tabletIndicatio ns:Mixed Bipolar I Disorder Take 1 tablet (30 mg total) by mouth nightly Active atorvastatin (LIPITOR) 40 mg tablet Take 1 tablet (40 mg total) by mouth nightly 9 Active metoprolol XL (TOPROL-XL) 50 mg 24 hr tabletIndicatio ns:hypertension Take 1 tablet (50 mg total) by mouth nightly Active Farxiga 10 mg tablet Take 0.5 tablets (5 mg total) by mouth nightly 3 Active desvenlafaxine ER (PRISTIQ) 100 mg 24 hr tablet Take 1 tablet (100 mg total) by mouth every morning 3 Active Ozempic 2 mg/dose (8 mg/3 mL) pen injector injectionIndica tions:type 2 diabetes mellitus Inject 2 mg under the skin once a week Takes on Monday 3 Active meloxicam (MOBIC) 15 mg tablet Take 1 tablet (15 mg total) by mouth daily With food. Do not take with other NSAIDS (ibuprofen, naproxen, ect.) 90 tablet 1 4 Active Additional Information Patient taking differently:15 mg oralEvery morning, With food. 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 Consultant) misc Activ e ALPRAZolam (XANAX) 1 mg tablet Take 1 tablet (1 mg total) by mouth nightly Active cyanocobalamin (Vitamin B-12) 1,000 mcg/mL injection Inject 1 mL (1,000 mcg total) into the muscle as instructed once a week Active ibuprofen (ADVIL,MOTRIN) 800 mg tablet Take 1 tablet (800 mg total) by mouth every 6 (six) hours as needed for pain Active calcium carbonate-vitam in D3 1500 mg (600 mg elemental) -200 units per tablet Take 1 tablet by mouth every morning Active cholecalciferol 25 mcg (1,000 unit) tablet Take 1 tablet (1,000 Units total) by mouth every morning Active BASAGLAR KWIKPEN U-100 INSULIN 100 unit/mL (3 mL) insulin penIndications: type 2 diabetes mellitus Inject 18 Units under the skin nightly 9 025 Discontin ued(Error ) mesalamine (LIALDA) 1.2 gram EC tablet 3 025 Discontin ued(Error ) mupirocin (BACTROBAN) 2 % ointment Apply topically 3 (three) times a day 22 g 1 4 025 Discontin ued(Error ) hydrocortisone 2.5 % cream 4 025 Discontin ued(Error ) clotrimazole (MYCELEX) 10 mg hans 025 Discontin ued(Error ) potassium chloride ER 20 mEq CR tablet Take 1 tablet (20 mEq total) by mouth nightly 025 Discontin ued(Error ) cyclobenzaprine (FLEXERIL) 10 mg tablet Take 1 tablet (10 mg total) by mouth 3 (three) times a day as needed 4 025 Discontin ued(Error ) oxyCODONE-aceta minophen (PERCOCET) 5-325 mg per tablet 5 025 Discontin ued(Error ) mesalamine (CANASA) 1,000 mg suppository INSERT 1 SUPPOSITORY RECTALLY TWICE DAILY DIRECTED 4 025 Discontin ued(Error ) Ozempic 1 mg/dose (4 mg/3 mL) pen injector injectionIndica tions:type 2 diabetes mellitus Inject 1 mg under the skin once a week Takes on Monday 5 025 Discontin ued(Error ) Stelara 45 mg/0.5 mL injection 025 Discontin ued(Error ) benzonatate (TESSALON) 200 mg capsuleIndicati ons:Cough Take 1 capsule (200 mg total) by mouth 3 (three) times a day as needed for cough 20 capsule 5 025 Discontin ued(Error ) Active Problems Problem Noted Date Diagnosed Date Nontraumatic complete tear of left rotator cuff 03/29/2024 Bicipital tendinitis of left shoulder 03/29/2024 Climacteric arthritis, shoulder region, left 08/2024 Heart failure with preserved ejection fraction 1 Primary hypertension 02/20/2024 Pain of both shoulder joints 12/13/2023 Chronic obstructive pulmonary disease 11/23/2023 Cobalamin deficiency 11/23/2023 Seasonal allergies 11/23/2023 Hyperthyroidism 09/29/2023 Iron deficiency 09/28/2023 Candidiasis of skin 07/21/2023 Acute urinary tract infection 07/20/2023 Laceration of right lower leg 07/05/2023 Sepsis due to urinary tract infection 06/20/2023 Candidiasis of mouth 06/10/2023 Nausea 05/01/2023 Iron deficiency anemia 01/17/2023 Major depressive disorder 12/20/2022 Mixed anxiety and depressive disorder 11/09/2022 Ulcer of mouth 11/02/2022 Cough 10/26/2022 Pleuritic pain 10/26/2022 Fever 10/18/2022 Chronic ulcerative proctitis 10/10/2022 Hyperlipidemia 10/10/2022 Vitamin D deficiency 10/10/2022 Obstructive sleep apnea syndrome 10/06/2021 Dermatochalasis of left upper eyelid 12/13/2018 Overview (12/13/2018): Added automatically from request for surgery [id number] Allergic rhinitis 08/22/2018 Attention deficit hyperactiv ity [...] Patient states she follows with Endo at [place], patient unable to recall the provider's name. [...] Sjogren's syndrome 08/22/2018 Obesity 08/22/2018 Autoimmune disease 08/22/2018 Vaginal bleeding 08/22/2018 Wound cellulitis 08/22/2018 Assessment & Plan (08/21/2023 7:56 AM CDT): Chronic at this point. Treat with Clindamycin and referral to wound clinic. Culture showed MRSA. Shoulder joint pain 08/22/2018 Sjogren's syndrome 06/24/2016 Postmenopausal bleeding 2013 Encounter for routine gynecological examination 11/27/2013 Immunizations Immunization Administration Dates Next Due COVID-19 mRNA (MirDeneg) 0.3 m L (30 mcg) vaccine (12 years and up) 12/08/2022 Hep A / Hep B 05/31/2021 Influenza, Quadrivalent, Karina l Culture-based MDCK, Preservative Free, Antibiotic Free, Intramuscular 11/20/2018 Influenza, Quadrivalent, Hig h Dose, Preservative Free, Intrr 12/08/2022,11/23/2021,11/10/2020 Influenza, Quadrivalent, Spl it, Preservative Free, Intramuscular 11/13/2019,11/09/2017,12/20/2016 Influenza, Trivalent, IM (MDV) 12/20/2012,2012 Influenza, Trivalent, Preser vative Free, Intramuscular 12/17/2012 Influenza, Unspecified 02/20/2023,02/20/2022 Pfizer Sars-Cov-2 Bivalent V accination (12+ YRS) 11/23/2021 [...] pur e alcohol) AUDIT-C Answer Date Recorded Q1: How often do you have a drink containing alcohol? Never 05/02/2024 Q2: How many drinks containi ng alcohol do you have on a typical day when you are drinking? Patient does not drink Q3: How often do you have si x or more drinks on one occasion? Never 05/02/2024 PHQ-2 Answer Date Recorded PHQ-2 Total Score (If total score is 3 or more points, staff should administer the PHQ-9) 0 09/04/2023 Comments Unknown Sex and Gender Information Value Date Recorded Sex Assigned at Not on file Legal Sex Female 3:03 AM PARTICLEBOARD FACTORY WORKER Gender Identity Not on file Sexual Orientation Not on file Last Filed Vital Signs Vital Sign Reading Time Taken Comments Blood Pressure 104/57 05/02/2024 1:31 PM CDT Pulse 92 05/02/2024 1:31 PM CDT Temperature 37.4 C (99.3 F) 04/02/2024 3:06 PM PARTICLEBOARD FACTORY WORKER Respiratory Rate 18 04/02/2024 3:06 PM PARTICLEBOARD FACTORY WORKER Oxygen Saturation 96% 05/02/2024 1:31 PM CDT Inhaled Oxygen Concentration - - Weight 79.4 kg (175 lb) 05/02/2024 1:31 PM CDT Height 170.2 cm (5' 7 ) 05/02/2024 1:31 PM CDT Body Mass Index 27.41 05/02/2024 1:31 PM CDT Plan of Treatment Upcoming Encounters Date Type Department Care Team (Late st Contact Info) Description 05/20/2024 11:45 AM CDT Hospital Encounter [facility] Operating Room [facility] [place] [phone] Kimani oLpez MD [address] [place] [address] 05/20/2024 11:45 AM CDT Anesthesia Event [facility] Operating Room [address] [place] [phone] Seema Medrano, KIM [address] [place] [address] 05/20/2024 11:45 AM CDT - 05/20/2024 2:30 PM CDT Surgery [facility] Operating Room [address] [place] [phone] Kimani Lopez MD [address] [place] [address] Left Reverse Total Shoulder Arthroplasty, Biceps Tendodesis Scheduled Procedures Name Priority Associated Diagnoses Date/Ti me ARTHROPLASTY SHOULDER - REVERSE TOTAL Nontraumatic complete tear of left rotator cuff Bicipital tendinitis of left shoulder Climacteric arthritis, shoulder region, left 05/20/2024 11:45 AM CDT Procedures Procedure Name Priority Date/Time Associated Diagnosis Comments EGFR Routine 05/02/2024 2:54 PM CDT Preop testing DIFFERENTIAL AUTO Routine 05/02/2024 2:5 4 PM CDT Preop testing COMPREHENSIVE METABOLIC PANEL Routine 05/02/2024 2:54 PM CDT Preop testing CBC WITH AUTO DIFFERENTIAL Routine 05/02/2024 2:54 PM CDT Preop testing HEMOGLOBIN A1C Routine 05/02/2024 2:54 PM CDT Preop testing CT SHOULDER LEFT WO CONTRAST Schedule Routine, Read Routine (OP Routine) 04/25/2024 9:20 AM [employer]LEBOARD FACTORY WORKER Left shoulder pain, unspecified chronicity INFLUENZA A/B, RSV, AND COVID-19 PCR Routine 04/02/2024 4:06 PM [employer]LEBOARD FACTORY WORKER Acute cough POC INFLUENZA A/B, COVID-19 ANTIGEN Routine 04/02/2024 4:00 PM PARTICLEBOARD FACTORY WORKER Acute cough XR CHEST PA LATERAL 2 VIEWS Schedule DELON, Read DELON (Appt Today, Awaiting Results) 04/02/2024 3:50 PM PARTICLEBOARD FACTORY WORKER Acute cough CARDIOLOGY DOCUMENT SCAN Routine 03/01/2024 9:44 AM PARTICLEBOARD FACTORY WORKER ECG 12-LEAD Routine 02/20/2024 3:18 PM PARTICLEBOARD FACTORY WORKER Chronic obstructive pulmonary disease, unspecified COPD type (HCC) HEPATITIS C ANTIBODY Routine 08/18/2023 11:21 AM CDT Encounter for hepatitis C screening test for low risk patient LIPID PANEL Routine 08/18/2023 11:21 AM CDT Type 2 diabetes mellitus without complication, with long-term current use of insulin (HCC) Essential hypertension ALBUMIN CREATININE RATIO, URINE Routine 08/18/2023 11:21 AM CDT Type 2 diabetes mellitus without complication, with long-term current use of insulin (HCC) DIABETES EYE EXAM Routine 10/31/2022 9:39 AM CDT HM COLONOSCOPY Routine 06/30/2022 12:57 PM CDT from Last 3 Months or Most Recently Relevant to Health Maintenance Results * eGFR (05/02/2024 2:54 PM CDT) eGFR >90 >=60 mL/min/1. 73 m2 Comment: Interpretive Data Reference Interval Normal >/= [...] interpretive data was last reviewed 2020. Blood 05/02/2024 2:54 PM CDT 05/02/2024 2:54 PM CDT us Seema Medrano NP LAB BLOOD ORDERAB LES Final Result [facility] [address] [place] [address] * (ABNORMAL) Differential, auto (05/02/2024 2:54 PM CDT) Neutrophil abs 7.1(H) 1.5 - 6.5 K/cumm Imm gran abs 0.0 0.0 - 0.1 K/cumm [facility] Lymphocyte abs 3.3 0.8 - 3.3 K/cumm [facility] Monocyte abs 0.7 0.2 - 0.8 K/cumm [facility] Eosinophil abs 0.3 0.0 - 0.5 K/cumm [facility] Basophil abs 0.1 0.0 - 0.1 K/cumm [facility] Neutrophil pct 62.2 % [facility] Comment: Interpretive Data Percent cell count reference ranges are not reported, since discordance with absolute values may lead to misinterpretation of CBC data. Current Interpretive Data was last revised on 2017. Imm gran pct 0.3 % [facility] Comment: Interpretive Data Percent cell count reference ranges are not reported, since discordance with absolute values may lead to misinterpretation of CBC data. Current Interpretive Data was last revised on 2017. Lymphocyte pct 28.5 % [facility] Comment: Interpretive Data Percent cell count reference ranges are not reported, since discordance with absolute values may lead to misinterpretation of CBC data. Current Interpretive Data was last revised on 2017. Monocyte pct 6.1 % [facility] Comment: Interpretive Data Percent cell count reference ranges are not reported, since discordance with absolute values may lead to misinterpretation of CBC data. Current Interpretive Data was last revised on 2017. Eosinophil pct 2.5 % [facility] Comment: Interpretive Data Percent cell count reference ranges are not reported, since discordance with absolute values may lead to misinterpretation of CBC data. Current Interpretive Data was last revised on 2017. Basophil pct 0.4 % [facility] Comment: Interpretive Data Percent cell count reference ranges are not reported, since discordance with absolute values may lead to misinterpretation of CBC data. Current Interpretive Data was last revised on 2017. Blood 05/02/2024 2:54 PM CDT 05/02/2024 2:54 PM CDT Seema Medrano PHYSICIAN/OPHTHALMOLOGIST LAB BLOOD ORDERAB LES Final Result [facility] [address] [place] [address] * (ABNORMAL) CBC with auto differential (05/02/2024 2:54 PM CDT) WBC 11.4(H) 3.8 - 9.9 K/cumm Hgb 13.5 11.9 - 15.5 g/dL [facility] Hct 41.7 35.6 - 45.5 % [facility] Plt 176 150 - 400 K/cumm [facility] MPV 11.2 9.1 - 12.3 fL [facility] RBC 4.69 3.90 - 5.20 M/cumm [facility] MCV 88.9 81.3 - 96.4 fL [facility] MCH 28.8 27.1 - 33.3 pg [facility] MCHC 32.4 32.3 - 35.7 g/dL [facility] RDW CV 14.6 11.1 - 14.9 % [facility] RDW SD 46.5 35.7 - 48.1 fL [facility] NRBC abs 0.00 0.00 - 0.01 K/cumm [facility] Blood 05/02/2024 2:54 PM CDT 05/02/2024 2:54 PM CDT [facility] LAB BLOOD ORDERAB LES Final Result Performing Organization Address [facility] de Phone Number [facility] [address] [employer] [address] * (ABNORMAL) Hemoglobin A1c (05/02/2024 2:54 PM CDT) [facility] Hgb A1C 7.0(H) 4.0 - 5.6 % Estimated Average Glucose 154 mg/dL [facility] Comment: The ADA recommends reporting an estimated Average Glucose (eAG) with all Hemoglobin A1c results using the equation derived from a study of 507 normal and diabetic adults. Minority populations were underrepresented and children were not included. (Diabetes Care 31:1449-8321, 2008). The eAG is not equivalent to a fasting glucose. Blood 05/02/2024 2:54 PM CDT 05/02/2024 2:54 PM CDT [facility] PHYSICIAN/OPHTHALMOLOGIST LAB BLOOD ORDERAB LES Final Result Performing Organization Address [facility] Co de Phone Number [facility] [address] [employer] [address] * (ABNORMAL) Comprehensive metabolic panel (05/02/2024 2:54 PM CDT) [facility] Sodium 136 135 - 145 mmol/L Potassium, pl 4.0 3.3 - 4.9 mmol/L [facility] Chloride 100 97 - 110 mmol/L [facility] CO2 24 22 - 32 mmol/L [facility] Anion gap 12 2 - 15 mmol/L [facility] BUN 13 6 - 25 mg/dL [facility] Creatinine 0.51(L) 0.60 - 1.10 mg/dL [facility] Glucose 86 70 - 199 mg/dL [facility] Comment: Interpretive Data Fasting glucose >/= [...] interpretive data was last revised 2022. Calcium 9.5 8.5 - 10.3 mg/dL [facility] Bilirubin, total 0.3 0.1 - 1.2 mg/dL [facility] Protein, pl 7.3 6.5 - 8.5 g/dL [facility] Albumin 4.0 3.5 - 5.0 g/dL [facility] Alk phos 126 40 - 130 Units/L [facility] ALT 20 7 - 45 Units/L [facility] AST 22 10 - 45 Units/L [facility] Blood 05/02/2024 2:54 PM CDT 05/02/2024 2:54 PM CDT Seema Medrano PHYSICIAN/OPHTHALMOLOGIST LAB BLOOD ORDERAB LES Final Result [facility] [address] [place] [address] * CT Shoulder Left WO Contrast (04/25/2024 9:20 AM PARTICLEBOARD FACTORY WORKER) Anatomical Region Laterality Modality Upper Extremities Left Computed Tomog jean paul 04/25/2024 9:44 AM PARTICLEBOARD FACTORY WORKER Impressions 04/25/2024 9:44 AM PARTICLEBOARD FACTORY WORKER Degenerative changes as discussed above. Electronically signed by: Nathaniel Rock M.D. Narrative 04/25/2024 9:44 AM PARTICLEBOARD FACTORY WORKER EXAM: CT SHOULDER LEFT WO CONTRAST CLINICAL HISTORY: Left shoulder pain. TECHNIQUE: Standard CT imaging was performed. Sagittal and coronal reconstructions were performed. COMPARISON: None available. FINDINGS: There is moderate glenohumeral joint osteoarthritic change. There is small subcortical cyst formation in the anterior and inferior aspect of the glenoid compatible with degenerative cyst formation. There is mild remodeling of the glenohumeral joint. There is mild acromioclavicular joint degenerative change. There is a 7 mm ossific body along the posterior superior aspect of the glenoid likely representing a joint body. There is a tiny 1 to 2 mm calcific density in the posterior glenohumeral joint likely reflecting a joint body. There is a probable chronic full-thickness rotator cuff tear with fatty atrophy of the supraspinatus. There is a small glenohumeral joint effusion. Groundglass opacities are noted diffusely throughout the visualized portions of the left lung. Paraseptal emphysematous changes are noted. There is atherosclerosis. There is cardiomegaly. There is coronary artery atherosclerosis. Small calcified left thyroid nodules are noted. Procedure Note Nathaniel Rock MD - 04/25/2024 EXAM: CT SHOULDER LEFT WO CONTRAST CLINICAL HISTORY: Left shoulder pain. TECHNIQUE: Standard CT imaging was performed. Sagittal and coronal reconstructions were performed. COMPARISON: None available. FINDINGS: There is moderate glenohumeral joint osteoarthritic change. There is small subcortical cyst formation in the anterior and inferior aspect of the glenoid compatible with degenerative cyst formation. There is mild remodeling of the glenohumeral joint. There is mild acromioclavicular joint degenerative change. There is a 7 mm ossific body along the posterior superior aspect of the glenoid likely representing a joint body. There is a tiny 1 to 2 mm calcific density in the posterior glenohumeral joint likely reflecting a joint body. There is a probable chronic full-thickness rotator cuff tear with fatty atrophy of the supraspinatus. There is a small glenohumeral joint effusion. Groundglass opacities are noted diffusely throughout the visualized portions of the left lung. Paraseptal emphysematous changes are noted. There is atherosclerosis. There is cardiomegaly. There is coronary artery atherosclerosis. Small calcified left thyroid nodules are noted. IMPRESSION: Degenerative changes as discussed above. Electronically signed by: Nathaniel Rock M.D. Kimani Lopez MD IMG CT PROCEDURES Final Res ult * (ABNORMAL) Influenza A/B, RSV, and COVID-19 PCR Nasopharyngeal (04/02/2024 4:06 PM PARTICLEBOARD FACTORY WORKER) Pathologist [facility] COVID-19 RNA Negative Negative Influenza A RNA Positive(A) Negative [facility] Influenza B RNA Negative Negative [facility] RSV RNA Negative Negative [facility] Comment: Interpretive data: Testing performed by [facility]. This test is performed using the [employer] Xpert Xpress CoV-2/Flu/RSV plus assay. This is a multiplex, real-time reverse transcriptase PCR assay intended for the qualitative detection of nucleic acid from SARS-CoV-2, influenza A, influenza B, and respiratory syncytial virus. This assay has been cleared by the [place] Food and Drug administration. The performance characteristics have been verified by the [facility]. Results must be considered in the clinical context, and a negative result does not rule out infection. Interpretive Data last revised 2023 Nasopharyngeal 04/02/2024 4: 06 PM PARTICLEBOARD FACTORY WORKER 04/02/2024 7:02 PM PARTICLEBOARD FACTORY WORKER Narrative [facility] - 04/02/2024 10:40 PM PARTICLEBOARD FACTORY WORKER Is the Patient experiencing symptoms consistent with COVID?->Yes Reason for testing?->Symptomatic Is the patient experiencing any symptoms consistent with COVID (eg. Fever, cough, shortness of breath)?->Yes Rylee Pagan NP LAB MICROBIOLOGY - GENERAL ORDERABLES Final Result [facility] [address] [place] [address] CH * POC Influenza A/B, COVID-19 antigen (04/02/2024 4:00 PM PARTICLEBOARD FACTORY WORKER) Influenza A Ag, POC Negative Negative [facility] Influenza B Ag, POC Negative Negative [facility] COVID-19 Ag POC Presumptive Negative Presumptive Negative, Invalid [facility] Nasal 04/02/2024 4:00 PM PARTICLEBOARD FACTORY WORKER Rylee Pagan NP POINT OF CARE TEST ORDERAB LES Final Result [facility] [place] [facility] [address] * XR Chest Pa Lateral 2 Views (04/02/2024 3:50 PM PARTICLEBOARD FACTORY WORKER) Anatomical Region Laterality Modality Body, Chest N/A Digital Radiogra phy 04/02/2024 9:06 PM PARTICLEBOARD FACTORY WORKER Narrative 04/02/2024 9:07 PM PARTICLEBOARD FACTORY WORKER EXAM DESCRIPTION: XR CHEST PA LATERAL 2 VIEWS REASON FOR STUDY: cough Pt complains of cough for six days. No surgery to heart, lungs, or chest. History of emphysema Ex-smoker; quit 19 years ago; pt smoked for about 30 years, 1 PPD TECHNIQUE: 2 radiographic view(s) of the chest. COMPARISON: Radiograph dated October 26 FINDINGS: LUNGS: No focal opacity, pleural effusion, or pneumothorax. HEART/MEDIASTINUM: Cardiac silhouette normal in size. Mediastinal and hilar contours appear normal. LINES/TUBES: None. BONES: No acute osseous abnormality. IMPRESSION: No acute cardiopulmonary abnormality. THIS IS AN ELECTRONICALLY VERIFIED FINAL REPORT 04/02/2024 9:07 PM - Electronically signed by Alejandro GUTIERRES T: Report ID: [id number] Reading Location: [id number] Procedure Note Alejandro Jarrell MD - 04/02/2024 EXAM DESCRIPTION: XR CHEST PA LATERAL 2 VIEWS REASON FOR STUDY: cough Pt complains of cough for six days. No surgery to heart, lungs, or chest. History of emphysema Ex-smoker; quit 19 years ago; pt smoked for about 30 years, 1 PPD TECHNIQUE: 2 radiographic view(s) of the chest. COMPARISON: Radiograph dated October 26 FINDINGS: LUNGS: No focal opacity, pleural effusion, or pneumothorax. HEART/MEDIASTINUM: Cardiac silhouette normal in size. Mediastinal andhilar contours appear normal. LINES/TUBES: None. BONES: No acute osseous abnormality. IMPRESSION: No acute cardiopulmonary abnormality. THIS IS AN ELECTRONICALLY VERIFIED FINAL REPORT 04/02/2024 9:07 PM - Electronically signed by Alejandro GUTIERRES T: Report ID: [id number] Reading Location: [place] [address] Rylee Pagan NP IMG XR PROCEDURES Final Re sult * Cardiology Document Scan (03/01/2024 9:44 AM PARTICLEBOARD FACTORY WORKER) Anatomical Region Laterality Modality Other Tomy Odonnell MD CV CARDIAC SERVICES PRO CEDURES Final Result * ECG 12 lead (02/20/2024 3:18 PM PARTICLEBOARD FACTORY WORKER) Keisha Persaud NP ECG ORDERABLES Final Result * Hepatitis C antibody Blood (08/18/2023 11:21 [...] - GENERAL ORDER JEREMIAH Final Result [place] [address] [address] [place] [address] * Albumin Creatinine Ratio, Urine (08/18/2023 11:21 [...] [place] [address] [address] [place] [address] * (ABNORMAL) Lipid panel (08/18/2023 11:21 AM [...] LAB BLOOD ORDERABLES Final Resul t [place] [address] [address] [place] [address] * DIABETES EYE EXAM (10/31/2022 9:39 AM CDT) Historical Provider HEALTH MAINTENANCE Final Result * COLONOSCOPY (06/30/2022 12:57 PM CDT) Historical Provider HEALTH MAINTENANCE Final Result from Last 3 Months or Most Recently Relevant to Health Maintenance Insurance AET[employer] MEDICARE [facility] MEDICARE Care Teams Training Lead Relationship Specialty Start Date End Date Jess Lima NP [address] [place] [address] PCP - General Family Medicine 04/10/24 Cammie Woodruff, DEWEY [address] [place] [address] Optometry 03/13/19 Osmany Foster MD [address] [place] [address] Referring Physician Gastroenterology 08/18/23 [facility] Endocrinology 08/18/23
--- OUTSIDE RECORDS SUMMARY | 2024-05-15 16:48 | XMS_ITS | Clinical Summary ---
Author Organization [facility] Address [address] [place] [address] Care Team Providers Care Hooker Up Name Role Phone Laura Grider MD Primary Care Provider [phone] Allergies Active Allergy Reactions Criticality Noted Date [...] 73 10/31/2018 9:00 AM CDT Temperature 36.3 C (97.4 F) 10/31/2018 7:44 AM CDT Respiratory Rate 18 10/31/2018 7:44 AM CDT [...] (1 - 1-dose 75+ series) 2029 Meningococcal B Vaccine Aged Out No l onger eligible based on patient's age to complete this topic Meningococcal Vaccine Aged Out No aaimr anna eligible based on patient's age to complete this topic RSV Immunizations Under 20 Months Aged Out No longer eligible based on patient's age to complete this topic Medical Devices Implanted Type Area Cementer Hand Device Identifier Shelf Expiration Date Model / Serial / Lot Knee Components Knee Components Knee Iol Toric Lens Sa6at5 - [id number] Implanted:Qty: 1 on 08/29/2018 by Marcus Lam MD at [facility] Lens MAGALY - SURGICAL DIV 08/19/2021 SA6AT5 / / Iol Toric Lens Sa6at3 - [id number] Implanted:Qty: 1 on 10/31/2018 by Marcus Lam MD at [facility] Lens [employer] - SURGICAL DIV 08/19/2021 SA6AT3 / [id number] / [place] [address] AETNA Care Teams Hooker Up Relationship Specialty Start Date End Date Laura Grider MD [address] [place] [address] [place] [address] PCP - General FAMILY PRACTICE 08/24/18
--- OUTSIDE RECORDS SUMMARY | 2024-05-15 16:48 | XMS_ITS | Clinical Summary ---
Author Organization [facility] Address [address] [place] [address] Care Team Providers Care Roll Operator Name Role Phone Cammie Woodruff OD Unavailable Osmany Foster MD Unavailable [phone] Jess Lima NP Primary Care Provider Allergies Active Allergy Reactions Criticality Noted Date [...] needed for pain Active blood-glucose meter,continuou s ([employer] G7 Telegrapher Agent) misc Activ e ALPRAZolam (XANAX) 1 mg [...] Units total) by mouth every morning Active BASAGLALEXIS MCKENNAPEN U-100 INSULIN 100 unit/mL (3 mL) [...] (12/13/2018): Added automatically from request for surgery [id number] Allergic rhinitis 08/22/2018 Attention deficit hyperactiv ity [...] AM CDT): Patient states she follows with [facility], patient unable to recall the provider's name. [...] Description 05/02/2024 1:15 PM CDT Pre-Admission Testing [facility] Pre Anesthesia Testing [facility] [place]note 2][address] [place] [address] Preop testing (Primary Dx) 04/25/2024 8:30 AM ASSISTANT PRINCIPAL - 04/25/2024 11:59 PM ASSISTANT PRINCIPAL Hospital Encounter [facility] - Imaging [address] [place] [phone] Kimani Lopez MD Left shoulder pain, unspecified chronicity Discharge Disposition: Discharge to home or self care 04/02/2024 4:06 PM ASSISTANT PRINCIPAL - 04/02/2024 11:59 PM ASSISTANT PRINCIPAL Hospital Encounter [address] [address] Acute cough Discharge Disposition: Discharge to home or self care 04/02/2024 3:40 PM ASSISTANT PRINCIPAL Ancillary Procedure [facility] Medical [facility] Imaging at [address] [phone] Acute cough 04/02/2024 3:15 PM ASSISTANT PRINCIPAL Office Visit [facility] Convenient Care at [address] [phone] Rylee Pagan NP Acute cough (Primary Dx) 03/05/2024 Orders Only [facility] Medical [facility] Cardiology [address] [place] [address] Tomy Odonnell MD 02/20/2024 11:00 AM ASSISTANT PRINCIPAL Office Visit [facility] Medical [facility] Cardiology [address] [place] [phone] Keisha Persaud, KIM Heart failure with preserved ejection fraction, unspecified HF chronicity (HCC) (Primary Dx); Chronic obstructive pulmonary disease, unspecified COPD type (HCC); Mixed hyperlipidemia; Primary hypertension 02/20/2024 Orders Only [facility] Cardiology [address] [place] [address] [address] [place] [phone] Keisha Persaud NP 02/19/2024 Telephone [place] [address] [place] [phone] Seema Veras NP Fatigue; weakness 02/19/2024 Orders Only [address] [address] Nereyda Guthrie MD 02/16/2024 NHUNG IP Outreach [facility] Accountable Care Organization [address] [place] [address] Yolanda Parkinson MA 02/15/2024 Orders Only [facility] Cardiology [facility] [address] [place] [phone] Tara Madrigal MD from Last 3 Months Immunizations Immunization Administration Dates Next Due COVID-19 mRNA (Wine Ring) 0.3 m L (30 mcg) vaccine (12 years and up) 12/08/2022 Hep A / Hep B 05/31/2021 Influenza, Quadrivalent, Karina l Culture-based MDCK, Preservative Free, Antibiotic Free, Intramuscular 11/20/2018 Influenza, Quadrivalent, Hig h Dose, Preservative Free, Intrr 12/08/2022,11/23/2021,11/10/2020 Influenza, Quadrivalent, Spl it, Preservative Free, Intramuscular 11/13/2019,11/09/2017,12/20/2016 Influenza, Trivalent, IM (MDV) 12/20/2012,2012 Influenza, Trivalent, Preser vative Free, Intramuscular 12/17/2012 Influenza, Unspecified 02/20/2023,02/20/2022 [employer] Sars-Cov-2 Bivalent V accination (12+ YRS) 11/23/2021 [...] apnea syndrome 10/06/2021 Hypertension NSTEMI (non-ST elevated myocardial infarction) ( HCC) Nontraumatic complete tear of left rotator cuff Bicipital tendinitis of left shoulder Climacteric arthritis, shoulder region, left Sjogren syndrome Family History Medical History Relation Name Comments [...] on file Legal Sex Female 3:03 AM ASSISTANT PRINCIPAL Gender Identity Not on file Sexual Orientation Not on file Obstetrics History Last Filed Vital Signs Vital Sign Reading Time Taken Comments Blood Pressure 104/57 05/02/2024 1:31 PM CDT Pulse 92 05/02/2024 1:31 PM CDT Temperature 37.4 C (99.3 F) 04/02/2024 3:06 PM ASSISTANT PRINCIPAL Respiratory Rate 18 04/02/2024 3:06 PM ASSISTANT PRINCIPAL Oxygen Saturation 96% 05/02/2024 1:31 PM CDT Inhaled Oxygen Concentration - - Weight 79.4 kg (175 lb) 05/02/2024 1:31 PM CDT Height 170.2 cm (5' 7 ) 05/02/2024 1:31 PM CDT Body Mass Index 27.41 05/02/2024 1:31 PM CDT Plan of Treatment Upcoming Encounters Date Type Department Care Team (Late st Contact Info) Description 05/20/2024 11:45 AM CDT Hospital Encounter [facility] Operating Room [address] [place] [phone] Kimani Lopez MD [address] [facility] [address] [place] [address] 05/20/2024 11:45 AM CDT Anesthesia Event [facility] Operating Room [address] [place] [phone] Seema Medrano NP [address] [place] [address] 05/20/2024 11:45 AM CDT - 05/20/2024 2:30 PM CDT Surgery [facility] Operating Room [address] [place] [address] Kimani Lopez MD [address] [place] [address] Left Reverse Total Shoulder Arthroplasty, Biceps Tendodesis Scheduled Procedures Name Priority Associated Diagnoses Date/Ti me ARTHROPLASTY SHOULDER - REVERSE TOTAL Nontraumatic complete tear of left rotator cuff Bicipital tendinitis of left shoulder Climacteric arthritis, shoulder region, left 05/20/2024 11:45 AM CDT Health Maintenance Due Date Last Done Comments Osteoporosis Screening-Bone Density Scan 1955 Foot Exam 1955 Well Visit 65+ 12/06/2019 Covid-19 Vaccine (2023-2 5 season) 2023 12/08/2022, 11/23/2021, 05/31/2021, Additional history exists Breast Cancer Screening-Mammogram 02/17/2024 023 Dilated Eye Exam 02/17/2024 02/16/2023, 10/31/2022 Albumin Creatinine Ratio, Urine 08/17/2024 4 Lipid Panel 08/17/2024 08/18/2023 Depression Screening 09/03/2024 09/04/2023, 08/18/19 24 Hemoglobin A1C 11/02/2024 05/02/2024, 08/18/2023 Fall Risk Assessment 05/02/2025 05/02/2024, 08/18/19 24 eGFR 05/02/2025 05/02/2024, 0706/2023, 08/18/2023 Colon Cancer Screening-Colonoscopy 08/17/2032 08/17/2022, 06/30/2022 DTaP/Tdap/Td Vaccine (3 - Td or Tdap) 10/23/2033 10/24/2023, 05/08/2013 Pneumococcal vaccine 65+ Completed 021, 12/31/2019, 04/11/2017 Zoster Vaccine Completed 12/14/2020, 10/14/2020 Hepatitis B Screening Completed 05/31/2021 Colon Cancer Screening-CT Colonography Discontinued 06/30/2022 Colon [...] Read Routine (OP Routine) 04/25/2024 9:20 AM ASSISTANT PRINCIPAL Left shoulder pain, unspecified chronicity INFLUENZA A/B, RSV, AND COVID-19 PCR Routine 04/02/2024 4:06 PM ASSISTANT PRINCIPAL Acute cough POC INFLUENZA A/B, COVID-19 ANTIGEN Routine 04/02/2024 4:00 PM ASSISTANT PRINCIPAL Acute cough XR CHEST PA LATERAL 2 VIEWS Schedule DELON, Read DELON (Appt Today, Awaiting Results) 04/02/2024 3:50 PM ASSISTANT PRINCIPAL Acute cough CARDIOLOGY DOCUMENT SCAN Routine 03/01/2024 9:44 AM ASSISTANT PRINCIPAL ECG 12-LEAD Routine 02/20/2024 3:18 PM ASSISTANT PRINCIPAL Chronic obstructive pulmonary disease, unspecified COPD type [...] NP LAB BLOOD ORDERAB LES Final Result [facility] [address] Department [place] [address] * (ABNORMAL) Differential, auto (05/02/2024 2:54 PM CDT) Neutrophil abs 7.1(H) 1.5 - 6.5 K/cumm Imm gran abs 0.0 0.0 - 0.1 K/cumm [facility] Lymphocyte abs 3.3 0.8 - 3.3 K/cumm [facility] Monocyte abs 0.7 0.2 - 0.8 K/cumm [facility] Eosinophil abs 0.3 0.0 - 0.5 K/cumm [facility] Basophil abs 0.1 0.0 - 0.1 K/cumm [facility] Neutrophil pct 62.2 % [facility] Comment: Interpretive Data Percent cell count reference ranges are not reported, since discordance with absolute values may lead to misinterpretation of CBC data. Current Interpretive Data was last revised on 2017. Imm gran pct 0.3 % [facility] Comment: Interpretive Data Percent cell count reference ranges are not reported, since discordance with absolute values may lead to misinterpretation of CBC data. Current Interpretive Data was last revised on 2017. Lymphocyte pct 28.5 % [facility] Comment: Interpretive Data Percent cell count reference ranges are not reported, since discordance with absolute values may lead to misinterpretation of CBC data. Current Interpretive Data was last revised on 2017. Monocyte pct 6.1 % [facility] Comment: Interpretive Data Percent cell count reference ranges are not reported, since discordance with absolute values may lead to misinterpretation of CBC data. Current Interpretive Data was last revised on 2017. Eosinophil pct 2.5 % [facility] Comment: Interpretive Data Percent cell count reference ranges are not reported, since discordance with absolute values may lead to misinterpretation of CBC data. Current Interpretive Data was last revised on 2017. Basophil pct 0.4 % [facility] Comment: Interpretive Data Percent cell count reference ranges are not reported, since discordance with absolute values may lead to misinterpretation of CBC data. Current Interpretive Data was last revised on 2017. Blood 05/02/2024 2:54 PM CDT 05/02/2024 2:54 PM CDT Seema Medrano THREAD CLIPPER LAB BLOOD ORDERAB LES Final Result Performing Organization Address City/State/RUST Co de Phone Number [facility] [address] Department of Laboratories [place], [place] [id number] * (ABNORMAL) CBC with auto differential (05/02/2024 2:54 PM CDT) [facility] WBC 11.4(H) 3.8 - 9.9 K/cumm Hgb 13.5 11.9 - 15.5 g/dL [facility] Hct 41.7 35.6 - 45.5 % [facility] Plt 176 150 - 400 K/cumm [facility] MPV 11.2 9.1 - 12.3 fL [facility] RBC 4.69 3.90 - 5.20 M/cumm [facility] MCV 88.9 81.3 - 96.4 fL [facility] MCH 28.8 27.1 - 33.3 pg [facility] MCHC 32.4 32.3 - 35.7 g/dL [facility] RDW CV 14.6 11.1 - 14.9 % [facility] RDW SD 46.5 35.7 - 48.1 fL [facility] NRBC abs 0.00 0.00 - 0.01 K/cumm [facility] Blood 05/02/2024 2:54 PM CDT 05/02/2024 2:54 PM CDT Seema Medrano NP LAB BLOOD ORDERAB LES Final Result Performing Organization Address [facility]/ZIP Co de Phone Number [facility] [address] Department of [address] [place] [address] * (ABNORMAL) Hemoglobin A1c (05/02/2024 2:54 PM CDT) [facility] Hgb A1C 7.0(H) 4.0 - 5.6 % Estimated Average Glucose 154 mg/dL [facility] Comment: The ADA recommends reporting an estimated Average Glucose (eAG) with all Hemoglobin A1c results using the equation derived from a study of 507 normal and diabetic adults. Minority populations were underrepresented and children were not included. (Diabetes Care 31:4352-2039, 2008). The eAG is not equivalent to a fasting glucose. Blood 05/02/2024 2:54 PM CDT 05/02/2024 2:54 PM CDT us Seema Medrano THREAD CLIPPER LAB BLOOD ORDERAB LES Final Result [facility] [address] Department [place] [address] * (ABNORMAL) Comprehensive metabolic panel (05/02/2024 2:54 PM CDT) Sodium 136 135 - 145 mmol/L Potassium, pl 4.0 3.3 - 4.9 mmol/L [facility] Chloride 100 97 - 110 mmol/L [facility] CO2 24 22 - 32 mmol/L [facility] Anion gap 12 2 - 15 mmol/L [facility] BUN 13 6 - 25 mg/dL [facility] Creatinine 0.51(L) 0.60 - 1.10 mg/dL [facility] Glucose 86 70 - 199 mg/dL [facility] Comment: Interpretive Data Fasting glucose >/= 126 [...] 2022. Calcium 9.5 8.5 - 10.3 mg/dL [facility] Bilirubin, total 0.3 0.1 - 1.2 mg/dL [facility] Protein, pl 7.3 6.5 - 8.5 g/dL [facility] Albumin 4.0 3.5 - 5.0 g/dL [facility] Alk phos 126 40 - 130 Units/L [facility] ALT 20 7 - 45 Units/L [facility] AST 22 10 - 45 Units/L [facility] Blood 05/02/2024 2:54 PM CDT 05/02/2024 2:54 PM CDT Seema Romanfrancesnyasia THREAD CLIPPER LAB BLOOD ORDERAB LES Final Result [facility] [address] Department [place] [address] * CT Shoulder Left WO Contrast (04/25/2024 9:20 AM ASSISTANT PRINCIPAL) Anatomical Region Laterality Modality Upper Extremities Left Computed Tomog jean paul 04/25/2024 9:44 AM ASSISTANT PRINCIPAL Impressions 04/25/2024 9:44 AM ASSISTANT PRINCIPAL Degenerative changes as discussed above. Electronically signed by: Nathaniel Rock M.D. Narrative 04/25/2024 9:44 AM ASSISTANT PRINCIPAL EXAM: CT SHOULDER LEFT WO CONTRAST CLINICAL [...] by: Nathaniel Rock M.D. Kimani Lopez MD [facility] PROCEDURES Final Res ult * (ABNORMAL) Influenza A/B, RSV, and COVID-19 PCR Nasopharyngeal (04/02/2024 4:06 PM ASSISTANT PRINCIPAL) Pathologist [facility] COVID-19 RNA Negative Negative Influenza A RNA Positive(A) Negative [facility] Influenza B RNA Negative Negative [facility] RSV RNA Negative Negative [facility] Comment: Interpretive data: Testing performed by [facility]. This test is performed using the [employer] Xpert Xpress CoV-2/Flu/RSV plus assay. This is a multiplex, real-time reverse transcriptase PCR assay intended for the qualitative detection of nucleic acid from SARS-CoV-2, influenza A, influenza B, and respiratory syncytial virus. This assay has been cleared by the [place] Food and Drug administration. The performance characteristics have been verified by the [facility]. Results must be considered in the clinical context, and a negative result does not rule out infection. Interpretive Data last revised 2023 Nasopharyngeal 04/02/2024 4: 06 PM ASSISTANT PRINCIPAL 04/02/2024 7:02 PM ASSISTANT PRINCIPAL Narrative [place] - 04/02/2024 10:40 PM ASSISTANT PRINCIPAL Is the Patient experiencing symptoms consistent with COVID?->Yes Reason for testing?->Symptomatic Is the patient experiencing any symptoms consistent with COVID (eg. Fever, cough, shortness of breath)?->Yes Rylee Pagan NP LAB MICROBIOLOGY - GENERAL ORDERABLES Final Result Performing Organization Address [facility]/RUST Co de Phone Number [place] [address] [address] Department [place] [address] * POC Influenza A/B, COVID-19 antigen (04/02/2024 4:00 PM ASSISTANT PRINCIPAL) Pathologist [facility] Influenza A Ag, POC Negative Negative [facility] Influenza B Ag, POC Negative Negative [facility] COVID-19 Ag POC Presumptive Negative Presumptive Negative, Invalid [facility] Nasal 04/02/2024 4:00 PM ASSISTANT PRINCIPAL Rylee Pagan NP POINT OF CARE TEST ORDERAB LES Final Result Performing Organization Address [facility] de Phone Number [facility] [address] [place] [address] * XR Chest Pa Lateral 2 Views (04/02/2024 3:50 PM ASSISTANT PRINCIPAL) Anatomical Region Laterality Modality Body, Chest N/A Digital Radiogra phy 04/02/2024 9:06 PM ASSISTANT PRINCIPAL Narrative 04/02/2024 9:07 PM ASSISTANT PRINCIPAL EXAM DESCRIPTION: XR CHEST PA LATERAL 2 [...] signed by Alejandro GUTIERRES T: Report ID: [id number] Reading Location: [id number] Procedure Note Alejandro Jarerll MD - 04/02/2024 EXAM DESCRIPTION: XR CHEST [...] signed by Alejandro GUTIERRES T: Report ID: [id number] Reading Location: [place] [address] Rylee Pagan NP IMG XR PROCEDURES Final Re sult * Cardiology Document Scan (03/01/2024 9:44 AM ASSISTANT PRINCIPAL) Anatomical Region Laterality Modality Other us Tomy Odonnell MD CV CARDIAC SERVICES PRO CEDURES Final Result * ECG 12 lead (02/20/2024 3:18 PM ASSISTANT PRINCIPAL) Keisha Persaud NP ECG ORDERABLES Final Result [...] Organization Address [facility] [place] [place] [address] [address] [employer] [place] [address] * Albumin Creatinine Ratio, Urine [...] Organization Address [facility] [place] [place] [address] [address] [place] [address] * (ABNORMAL) Lipid panel (08/18/2023 11:21 AM [...] on 2017. Triglycerides 160(H) <=149 mg/dL [facility] Comment: Interpretive Data Ages < [...] [place] [address] [address] Department [place] [address] * DIABETES EYE EXAM (10/31/2022 9:39 AM CDT) Historical Provider HEALTH MAINTENANCE Final Result * COLONOSCOPY (06/30/2022 12:57 PM CDT) Historical Provider HEALTH MAINTENANCE Final Result from Last 3 Months or Most Recently Relevant to Health Maintenance Insurance [employer] MEDICARE [facility] MEDICARE Care Teams Roll Operator Relationship Specialty Start Date End Date Jess Lima NP [address] [place] [address] PCP - General Family Medicine 04/10/24 Cammie Woodruff OD [address] [place] [address] Optometry 03/13/19 Osmany Foster MD [address] [place] [address] Referring Physician Gastroenterology 08/18/23 [facility] Endocrinology 08/18/23
[2024-05-15 17:03] LABS: Vitamin B12 > 1000.0 pg/mL (239-931)
== END 2024-05-15 15:30 | disposition home or self-care (01) ==
PROVIDERS: Nurse Practitioner Family; PCP Nurse Practitioner Family; Referring Provider Internal Medicine Endocrinology, Diabetes & Metabolism; Visit Provider Nurse Practitioner
DX: K51.20 Ulcerative (chronic) proctitis without complications (principal); K76.0 Fatty (change of) liver, not elsewhere classified; E11.65 Type 2 diabetes mellitus with hyperglycemia; E66.9 Obesity, unspecified; R79.89 Other specified abnormal findings of blood chemistry; E78.5 Hyperlipidemia, unspecified; E55.9 Vitamin D deficiency, unspecified; Z78.0 Asymptomatic menopausal state
CPT/HCPCS: 36415; 80053; 80061; 82043; 82306; 82607; 84439; 84443; 85652; 86140

== ENCOUNTER 2024-07-26 13:26 | Outpatient (CLI) | payer MEDICARE, SELFPAY ==
--- OUTSIDE RECORDS SUMMARY | 2024-07-26 13:33 | XMS_ITS | Data Portability ---
Author Organization [place] - [facility], Main Office Address [address] [place] [address] Care Team Providers Care Senior Animator Name Role Phone MARION GREGG ZACHARY Primary Care Provider MARION GREGG ZACHARY Referring Provider Assessment Encounter Date Assessment Date Assessment LastModified by Organization Details LastModified Time 03/07/2024 03/07/2024 Assessment: Mild OSAHS, AHI = 9 Bullous emphysema 7 mm RUL nodule Plan: The following were reviewed and explained to the patient: [facility] home sleep study 06/23/21 AHI = 9, supine AHI = 10 [facility] titration sleep study 08/17/21 sleep onset = 14.5 minutes, REM onset = none, Respironics medium DreamWisp nasal mask @ 10 cmH2O, PLMI =10 [place] [facility] night sleep study 01/02/23 sleep onset = 5 minutes, AHI = 12, ResMed medium AirFit F30i full face mask @ 12 cmH2O, PLMI = 28 [place] titration sleep study 05/10/23 sleep onset = 87 minutes, REM onset = 310 minutes, ResMed medium AirFit F30 full face mask @ 11 cmH2O, PLMI = 0.[address] 09/15/20 bullous emphysema, 7 mm RUL nodule Chest CT 10/06/21 bullous emphysema, 7 mm RUL nodule Chest CT 02/09/24 bullous emphysema, cardiomegaly, no [facility] [place] [facility] 02/10/24-02/13/24 NSTEMI, CHF Cough/Dyspnea workup will be done as follows: Respiratory allergen panel for [facility] Serum IgE Serum total IgG, IgG1, IgG2, IgG3, IgG4 Sjgoy-7-quyxejimrc n phenotype and level TB stimulated gamma [...] none Keep ramp off. 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 Keep humidifier level at 6. Patient is [...] carrier. Patient will setup an appointment with [facility] for supplies and pressure adjustments. A major [...] further management. Follow-up: 1 week after PFT Not available 03/07/2024 11:09:58 04/15/2024 04/15/2024 Assessment: Mild OSAHS, AHI = 9 Bullous emphysema 7 mm RUL nodule Plan: The following were reviewed and explained to the patient: [facility] home sleep study 06/23/21 AHI = 9, supine AHI = 10 [facility] titration sleep study 08/17/21 sleep onset = 14.5 minutes, REM onset = none, Respironics medium DreamWisp nasal mask @ 10 cmH2O, PLMI =10 [place] split night sleep study 01/02/23 sleep onset = 5 minutes, AHI = 12, ResMed medium AirFit F30i full face mask @ 12 cmH2O, PLMI = 28 [place] titration sleep study 05/10/23 sleep onset = 87 minutes, REM onset = 310 minutes, ResMed medium AirFit F30 full face mask @ 11 cmH2O, PLMI = 0.[address] 09/15/20 bullous emphysema, 7 mm RUL nodule Chest CT 10/06/21 bullous emphysema, 7 mm RUL nodule Chest CT 02/09/24 bullous emphysema, cardiomegaly, no [facility] [place] hospitalization 02/10/24-02/13/24 NSTEMI, CHF Lab data 03/07/24 PFT 04/15/24 nl FEV1/FVC, FEV1 2.20 L (94%), BD -70 mL = -3%, TLC 3.52 L (70%), RV 0.67 L (33%), DLCO 52%, DLCO/VA 88% Cough/Dyspnea workup will be done as follows: Methacholine challenge testing Advised to continue not to smoke. Continue [...] the patient. Average apnea/hypopnea index (AHI) is 0.6. Patient used PAP > 4 hours 94% of the time. PAP is set at 14 cmH2O. PAP will be reset at 13 cmH2O. Oxygen supplementation: none Keep ramp off. 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 Keep humidifier level at 6. Patient is [...] carrier. Patient will setup an appointment with [facility] for supplies and pressure adjustments. A major [...] for further management. Follow-up: 1 week after methacholine challenge testing Not available 04/15/2024 11:50:22 Plan of Treatment Reminders Order Date Submit Date Provider Last Modified By Organization Details Last Modified Time Details Appointments Follow Up 2024 09:45A Stephanie Lima NP Not available Not available Not available Follow Up 2024 09:00A Stephanie Lima NP Not available Not available Not available Lab alpha-1-a ntitrypsi n (aat) phenotype , serum 2024 025 [facility] (Lab), [address] [place], [address], 03/25/2024 15:26:37 BNP (B-type natriuret ic peptide), serum or plasma 2024 025 [facility] (Lab), [address] [place], [address], 03/07/2024 14:03:27 ige, total, serum 2024 025 [facility] (Lab), [address] [place], [address], 04/10/2024 13:01:53 tb (M tuberculo sis), ifn-gamma aliza, blood 2024 025 [facility] (Lab), [address] [place], [address], 04/10/2024 13:01:53 [address] s 1+2+3+4, serum 2024 025 [facility] (Lab), [address] [place], [address], 04/10/2024 13:01:54 respirato ry allergen panel, [facility] A, serum 2024 025 [facility] (Lab), [address] [place], [address], 04/10/2024 13:01:54 respirato ry allergen panel - [facility] b 2024 025 [facility] (Lab), [address] [place], [address], 04/10/2024 13:01:54 eosinophi ls, quant, blood 2024 025 [facility] (Lab), [address] [place], [address], 04/10/2024 13:01:54 glycohemo globin, total, blood 2024 025 [email or web address] [facility] (Lab), [address] [place], [address], 02/29/2024 10:31:54 Referral pulmonolo gist referral - Please call patient to schedule an appointme nt. Thank you. 2024 025 [email or web address] Ronny Fulton MD, [address] [place], [address], 03/28/2024 09:15:41 Procedures None recorded. Surgeries None recorded. Imaging electroca rdiogram 2024 025 [email or web address] [address], [place], [address], 04/17/2024 10:21:05 Medication Orders oxycodone -acetamin ophen 5 mg-325 mg tablet 2024 025 [facility], [address] [place] [address], [address], 04/17/2024 09:47:41 ibuprofen 800 mg tablet 2024 025 [facility], [address] [place] [address], [address], 04/17/2024 09:47:37 alprazola m 2 mg tablet 2024 025 [facility], [address] [place] [address], [address], 04/17/2024 09:47:40 oxycodone -acetamin ophen 5 mg-325 mg tablet 2024 025 [facility] 2425, [address] [facility], [place], [address], 04/15/2024 11:13:17 Patient TargetsNo targets recorded. Patient Instructions Encounter Date Encounter Id Patient Instructions Last Modified By Organization Details Last Modified Time 03/07/2024 [id number] complete PFT w/ post bronchodilator spirometry* - Please call patient to schedule. NPAN [id number] per [employer]. [email or web address] Not available 04/10/2024 09:54:17 04/15/2024 [id number] methacholine challenge* - Please call patient to schedule. NPAN [id number] per [employer]. [email or web address] Not available 05/15/2024 11:52:42 Reason for Referral [employer] Referral for O bstructive sleep apnea syndrome Please call patient to schedule an appointment. Thank you. Referring Physician: Jess Lima, Family Medicine, Encounter Date: 02/29/2024 Results Created Date Observation Date Name Description Value Unit Range Abnormal Flag Note LastModifiedBy Organization Detail LastModifiedTime 06/18/19 25 06/17/2024 urina lysis , dipst ick Leukocytes (reference range: negative ankit/ l) Large Not Available [address], [place], [address], 06/17/2024 14:29:47 06/18/19 25 06/17/2024 urina lysis , dipst ick Nitrite (reference rage: negative mg/dl) positi ve Not Available [address], [place], [address], 06/17/2024 14:29:47 06/18/19 25 06/17/2024 urina lysis , dipst ick Urobilinogen (reference range: 0.2-1 mg/dl) 0.2 Not Available [address], [place], [address], 06/17/2024 14:29:47 06/18/19 25 06/17/2024 urina lysis , dipst ick Protein (reference range: negative mg/dl) Negati ve Not Available [address], [place], [address], 06/17/2024 14:29:47 06/18/19 25 06/17/2024 urina lysis , dipst ick pH (reference range: 5-7) 5.5 Not Available [address], [place], [address], 06/17/2024 14:29:47 06/18/19 25 06/17/2024 urina lysis , dipst ick Blood (reference range: negative Darrius/ l) Non-He molyze d: Trace Not Available [address], [place], [address], 06/17/2024 14:29:47 06/18/19 25 06/17/2024 urina lysis , dipst ick Specific [place] (reference range: 1.005-1.030) 1.020 Not Available [address], [place], [address], 06/17/2024 14:29:47 06/18/19 25 06/17/2024 urina lysis , dipst ick Ketone (reference range: negative mg/dl) Negati ve Not Available [address], [place], [address], 06/17/2024 14:29:47 06/18/19 25 06/17/2024 urina lysis , dipst ick Bilirubin (reference range: negative mg/dl) Negati ve Not Available [address], [place], [address], 06/17/2024 14:29:47 06/18/19 25 06/17/2024 urina lysis , dipst ick Glucose (reference range: negative mg/dl) 500 Not Available [address], [place], [address], 06/17/2024 14:29:47 06/18/19 25 06/17/2024 urina lysis , dipst ick Appearance Cloudy Not Available [address], [place], [address], 06/17/2024 14:29:47 06/18/19 25 06/17/2024 urina lysis , dipst ick Color Yellow Not Available [address], [place], [address], 06/17/2024 14:29:47 02/09/20 24 02/09/2024 imagi ng/di agnos tic resul t No observ ation record ed. [address] [address], [place], [address], 02/09/2024 06:31:48 02/09/20 24 02/09/2024 imagi ng/di agnos tic resul t No observ ation record ed. [address] [address], [place], [address], 02/09/2024 06:39:16 02/09/20 24 02/09/2024 imagi ng/di agnos tic resul t No observ ation record ed. [address] [address], [place], [address], 02/09/2024 07:07:16 02/09/20 24 02/09/2024 imagi ng/di agnos tic resul t No observ ation record ed. [address] [address], [place], [address], 02/09/2024 08:39:10 02/10/20 24 02/10/2024 imagi ng/di agnos tic resul t No observ ation record ed. [address] [address], [place], [address], 02/10/2024 16:54:29 02/16/20 24 02/15/2024 imagi ng/di agnos tic resul t No observ ation record ed. [address] [address], [place], [address], 02/16/2024 09:56:53 03/01/19 25 02/09/2024 CT, chest , w/o contr ast No observ ation record ed. BARCODE Not Available 2024 14:43:15 04/15/19 25 04/15/2024 compl ete PFT w/ post bronc hodil ator yo metry * No observ ation record ed. BARCODE Not Available 2024 14:32:37 04/15/19 25 04/15/2024 compl ete PFT w/ post [facility] hodil ator yo metry * No observ ation record ed. BARCODE Not Available 2024 14:55:18 04/17/19 jhoan lynch am No observ ation record ed. [email or web address] [facility] [address], [place], [address], 04/17/2024 09:43:27 Result Notes None recorded. Problems Name Problem SNOMED Code Status Onset Date Resolution Date Notes Provider Name and Address Organization Details Recorded Time Bipolar disorder 17485915 Active Not Available [facility] 3 00:53:11 Calcific tendinitis of shoulder 36416446 Active Not Available [facility] 3 00:53:11 Attention deficit hyperactivity disorder, predominantly inattentive type 50502200 Active Not Available [facility] 3 00:53:11 Osteoarthriti s 669222091 Active Not Available [facility] 3 00:53:11 Essential hypertension 73858313 Active Not Available [facility] 3 00:53:12 Allergic rhinitis 69168031 Active Not Available [facility] 3 00:53:12 Diabetes mellitus 73142752 Active Not Available [facility] 3 00:53:12 Obstructive sleep apnea syndrome 02723303 Active 2021 Not Available [facility] 3 00:53:12 Sj gren's syndrome 94001516 Active Not Available [facility] 3 00:53:12 Ex-smoker 9855413 Active Not Available [facility] 3 00:53:12 Chronic ulcerative proctitis 29569026 Active 2022 Laura Grider MD [address] [address], [place], [address] , [employer] [facility] 3 09:54:31 Vitamin D deficiency 12680989 Active 2022 Laura Grider MD [address], [place], [address] , [employer] [facility] [employer] [facility] 3 09:57:13 Hyperlipidemi a 91250164 Active 2022 Laura Grider MD [address], [place], [address] , [facility] [employer] [facility] [employer] [facility] 3 09:57:58 Mixed anxiety and depressive disorder 099761677 Active 2022 Laura Grider MD [address], [place], [address] , [facility] [employer] [facility] [employer] [facility] 3 15:40:00 Iron deficiency 27547543 Active 2023 MARION Orellana [address], [place], [address] , [facility] [employer] [facility] 4 09:52:22 Cobalamin deficiency 542334901 Active 2023 MARION Orellana [address], [place], [address] , [facility] [employer] [facility] 4 14:29:47 Attention deficit hyperactivity disorder 216377783 Active 2024 MARION Sterling [address], [place], [address] , [facility] [employer] [facility] 5 14:37:29 Dyspnea on exertion 59079104 Active 2024 Ronny Fulton MD [address], [place], [address] , [facility] [employer] [facility] [employer] [facility] 5 11:33:50 Pain of shoulder region 88308545 Active 2024 MARION Sterling [address], [place], [address] , [facility] [employer] [facility] 5 09:39:28 Pain in right lower limb 643910688 Active 2024 MARION Sterling [address], [place], [address] , [facility] [employer] [facility] 5 09:42:52 Anxiety 43598639 Active 2024 MARION Sterling [address], [place], [address] , [facility] 5 19:25:42 Dysuria 58073103 Active 2024 Bailee Perez RN [facility], [facility] 5 14:29:48 Acute urinary tract infection 543294660 Active 2024 MARION Sterling [address], [place], [address] , [facility] 5 14:57:27 Notes:Medical History: Anxie ty/Bipolar depression/ADHD Nasoseptal perforation Rhinitis with postnasal drip Eosinophils 370/uL IgE 16 IU/mL AAT PiMM 160 mg% Thyroid nodules 7 mm RUL nodule Obesity with mild OSAHS, AHI = 9, 06/23/21, on CPAP c/o [employer] T2DM Hyperlipidemia Hypertension NSTEMI CHF Hepatic steatosis with caput medusae Ulcerative proctitis PLMD Vit D deficiency Sjogren's syndrome Left rotator cuff tear OA Procedure History: T&A 1964 C-sections 1982, 1987, 1988 Bladder suspension 1986 Bladder revision 1987 WIL 1988 Left knee replacement 2004 Right knee replacement 2007 Cardiac catheterization 2024 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 Procedures Surgical History Date Name Laterality Status Provider Name and Address Organization Details Recorded Time 01/03/20 24 Ortho - Cortisone Injection completed Kathy Ross NP [address], [place], [address], [facility] 01/03/2024 15:00:40 12/13/19 24 Ortho - Cortisone Injection completed Flaco Denise MD [address], [place], [address], [facility] 12/13/2023 10:33:59 07/05/19 24 Cortisone Injection (Dequervains/ Greater Trochantric/ Lateral Epicondylitis/ Shoulder/ Subacromial Space/ Knee or Trigger Finger) completed Laura Grider MD [address], [place], [address], [facility] [employer] [facility] 07/05/2023 08:50:43 06/20/19 24 Transitional_Ca re_Management completed Ce Hector RN [facility] [place] [facility] 06/20/2023 16:41:15 01/05/20 23 Cortisone Injection (Dequervains/ Greater Trochantric/ Lateral Epicondylitis/ Shoulder/ Subacromial Space/ Knee or Trigger Finger) completed Laura Grider MD [address], [place], [address], [facility] [employer] [place] [facility] 01/19/2023 19:14:01 09/02/19 23 Cortisone Injection (Dequervains/ Greater Trochantric/ Lateral Epicondylitis/ Shoulder/ Subacromial Space/ Knee or Trigger Finger) completed SHARA Acosta [address], [place], [address], [facility] [employer] [place] [facility] 08/31/2022 08:22:44 07/01/19 23 Colonoscopy completed Hope Zamora LPN [facility] [place] [facility] 06/30/2022 14:35:15 Knee Replacement completed Not Available [facility] 04/20/2022 00:47:57 procedure on urinary bladder completed Not Available [facility] 04/20/2022 00:47:57 Knee Replacement completed Not Available [facility] 04/20/2022 00:47:57 Imaging Results None recorded. Procedure Notes None recorded. Medical Equipment None Reported. Allergies Allergen ID Allergen Name Allergen Category Reaction Reaction Severity Criticality Documentation Date Start Date Code Code System Note Provider Name and Address Organization Details Recorded Time 1284 triamcino lone medicatio n Not available Not available Not available 04/20/2022 68293 RxNorm OINT Not Available [facility] 3 01:02:05 1285 codeine medicatio n itching Not available Not available 04/20/2022 2670 RxNorm Not Available [facility] 01:02:05 Medications Name Sig Start Date Stop [...] Available Not Available furosemide 40 mg tablet 04/15 completed Not Available Not Available Not Available latanopros [...] Not Available azithromyc in 250 mg tablet TAKE 2 TABLETS BY MOUTH ON DAY 1, AND THEN TAKE 1 TABLET BY MOUTH ONCE A DAY ON DAY 2 THROUGH DAY 5 04/15 completed Not Available Not Available Not Available glyburide 5 mg tablet 2 po bid with food active Not Available Not Available No t Available ibuprofen 800 mg tablet Take 1 tablet 3 times a day by oral route. active Not Available Not Available No t Available ofloxacin 0.3 % eye drops 01/25 completed Not Available Not Available Not Available fluconazol e 150 mg tablet TAKE 1 TABLET BY MOUTH ONCE DAILY NEEDED , TAKE ONE TABLET BY MOUTH ONCE DAILY, THEN REPEAT IN 72 HOURS IF NEEDED FOR SYMPTOMS OF YEAST INFECTION active Not Available Not Available No t Available benzonatat e 200 mg capsule TAKE 1 CAPSULE BY MOUTH THREE TIMES DAILY NEEDED FOR COUGH 04/15 completed Not Available Not Available Not Available [...] Available meloxicam 15 mg tablet Take 1 tablet by mouth once daily 2024 active Not Available Not Available Not Avai lable bupivacain e HCl 0.5 % (5 mg/mL) injection solution in office 03/01 completed Not Available Not Available Not Available prednisone 20 mg tablet TAKE 1 TABLET BY MOUTH TWICE DAILY FOR 5 DAYS 04/15 completed Not Available Not Available Not Available [...] Not Available Not Available No t Available sulfametho xazole 800 mg-trimeth oprim 160 [...] suspension for injection in office 03/01 completed [facility]: [phone] Not Available Not Available Not [...] ML EVERY WEEK BY SUBCUTANE OUS ROUTE. 2024 active Not Available Not Available Not Avai lable ferrous sulfate 325 mg (65 mg iron) tablet Take 1 tablet every day by oral route for 90 days. 2024 active Not Available Not Available Not Avai lable fluoxetine 20 mg tablet Take 3 tablets every day by oral route as directed for 30 days. 01/23 completed Not Available Not Available Not Available metformin 1,000 mg tablet 1 po bid active Not Available Not Available Not Available neomycin-p olymyxin-d exameth 3.5 mg/mL-10,0 00 unit/mL-0. 1% eye drops 09/30 completed Not Available Not Available Not Available Cipro 500 mg tablet Take 1 tablet every 12 hours by oral route. 2024 active Not Available Not Available Not Avai lable nitrofuran toin macrocryst al 100 mg capsule Take 1 capsule twice a day by oral route for 7 days. active Not Available Not Available No t Available triamcinol one acetonide 0.1 % topical ointment active Not Available Not Available Not Available dextroamph etamine-am phetamine 20 mg tablet TAKE ONE TABLET BY MOUTH THREE TIMES A DAY DIRECTED active Not Available [...] gauge x 1 USE TO INJECT VITAMIN B12 2024 active Not Available Not Available Not Avai lable gabapentin 300 mg capsule Take 1 capsule [...] mg tablet TAKE ONE TABLET BY MOUTH TWICE DAILY NEEDED. active Not Available Not Available No t [...] propionate 50 mcg/actuat ion nasal spray,susp ension [place] 1 spray every day by intranasa l [...] Available mesalamine 1,000 mg rectal suppositor y 04/15 completed Not Available Not Available Not Available chlorhexid ine gluconate 0.12 % mouthwash SWISH AND SPIT 15 MLS BY MOUTH TWICE A DAY NEEDED 12/11 completed Not Available Not Available Not Available BD Integra Syringe 3 mL 25 gauge x 1 active Not Available Not Available N ot Available Zostavax (PF) 19,400 unit/0.65 mL subcutaneo [...] No t Available Farxiga 5 mg tablet TAKE 1 TABLET BY MOUTH ONCE DAILY active Not Available Not Available No t Available potassium chloride ER 20 mEq tablet,ext ended release 03/01 completed Not Available Not Available Not Available Fluvirin 5475-8134 45 mcg (15 mcg x 3)/0.5 mL [...] completed Not Available Not Available Not Available Britany KwikPen U-100 Insulin 50 units 03/22 completed [...] us pen injector INJECT 2MG SUBCUTANE OUSLY ONCE WEEKLY (ON SATURDAYS ) active Not Available Not Available No t Available Dexcom G7 Sensor device USE DIRECTED active Not Available Not Available No t Available Vitals Date Recorded Body height Body mass index (BMI) Body weight Body temperature Provider Name and Address Organization Details Last Updated DateTime 02/29/2024 170.18 cm 26.6 kg/m2 08907.7 g 96.9 [degF] Ce Hector RN [place] [facility] 02/29/2024 09:05:40 Date Recorded Heart rate Oxygen saturation Oxygen saturation in Arterial blood by Pulse oximetry Heart rate Respiratory rate Provider Name and Address Organization Details Last Updated DateTime 5 92 /min 96 % 96 % 92 /min 15 /min Ronny Fulton MD [address], [place], [address], [place] [employer] [facility] 5 10:30:48 Date Recorded Body height Body mass index (BMI) Body weight Body temperature Systolic blood pressure Diastolic blood pressure Provider Name and Address Organization Details Last Updated DateTime 5 170.18 cm 26.9 kg/m2 28382.8 9 g 97.2 [degF] 116 mm[Hg] 66 mm[Hg] Irma Chua MA [place] [employer] [facility] 5 10:23:09 Date Recorded Body height Body mass index (BMI) Heart rate Oxygen saturation Oxygen saturation in Arterial blood by Pulse oximetry Respiratory rate Heart rate Provider Name and Address Organization Details Last Updated DateTime 5 167.64 cm 28 kg/m2 105 /min 95 % 95 % 14 /min 105 /min Ronny Fulton MD [address], [place], [address] , [place] [employer] 5 11:55:59 Date Recorded Body weight Body temperature Systolic blood pressure Diastolic blood pressure Provider Name and Address Organization Details Last Updated DateTime 04/15/2024 05286.64 g 98.3 [degF] 138 mm[Hg] 76 mm[Hg] Harleen Sam MA [place] [employer] [facility] 5 11:10:53 Date Recorded Body height Body mass index (BMI) Body weight Body temperature Heart rate Oxygen saturation Oxygen saturation in Arterial blood by Pulse oximetry Systolic blood pressure Diastolic blood pressure Provider Name and Address Organization Details Last Updated DateTime 5 167.64 cm 28.2 kg/m2 27930.6 6 g 97.3 [degF] 80 /min 94 % 94 % 112 mm[Hg] 70 mm[Hg] Irma Chua MA [place] [employer] [facility] 5 09:26:36 Social History Question Answer Notes LastModified by Organizat ion Details LastModified Time Tobacco Smoking Status Former Smoker Not Available [facility] 04/20/2022 00:45:45 Do You Have An Advance Directive? Yes [id number] Information not available 04/20/2022 Are You Blind Or Do You Have Difficulty Seeing? No [id number] Information not available 04/20/2022 What Is Your Level Of Caffeine Consumption? Occasional MIGRATION.00383 91891 Information not available 04/20/2022 How Much Tobacco Do You Chew? None MIGRATION.07738 01151 Information not available 04/20/2022 In The 14 Days Before Symptom Onset, Have You Had Close Contact With A Laboratory-confir med COVID-19 While That Case Was Ill? No MIGRATION.71258 96169 Information not available 04/20/2022 In The 14 Days Before Symptom Onset, Have You Had Close Contact With A Person Who Is Under Investigation For COVID-19 While That Person Was Ill? No MIGRATION.84832 52901 Information not available 04/20/2022 Are You Deaf Or Do You Have Serious Difficulty Hearing? No MIGRATION.50898 95108 Information not available 04/20/2022 What Type Of Diet Are You Following? REGULAR MIGRATION.67087 37973 Information not available 04/20/2022 Which Illicit Or Recreational Drugs Have You Used? None MIGRATION.50352 41929 Information not available 04/20/2022 Do You Have An Electrostatic Air Filter? No MIGRATION.51269 89332 Information not available 04/20/2022 Do You Have A Humidifier? Yes MIGRATION.72304 45237 Information not available 04/20/2022 Do You Use Insect Repellent Routinely? Yes MIGRATION.30969 31268 Information not available 04/20/2022 Do You Have A Medical Power Of Switchboard Troubleshooter? Yes MIGRATION.35104 13479 Information not available 04/20/2022 Do You Have Moisture Problems In Your Home? No MIGRATION.32732 98348 Information not available 04/20/2022 What Was The Date Of Your Most Recent Tobacco Screening? 04/15/2024 Information not available 04/15/2024 Do You Have Any Pets? Yes MIGRATION.21050 32464 Information not available 04/20/2022 What Is Your Relationship Status? Information not available 04/15/2024 Do You Use Your Seat Belt Or Car Seat Routinely? Yes [email or web address] Information not available 03/07/2024 Do You Have Smoke And Carbon Monoxide Detectors In Your Home? Yes MIGRATION.57025 12827 Information not available 04/20/2022 Are You Passively Exposed To Smoke? No MIGRATION.97701 02450 Information not available 04/20/2022 How Much Tobacco Do You Smoke? No MIGRATION.78609 22921 Information not available 04/20/2022 Do You Use Sunscreen Routinely? Yes MIGRATION.55973 57992 Information not available 04/20/2022 Have You Recently Traveled Abroad? No MIGRATION.59248 52603 Information not available 04/20/2022 Do You Have Difficulty Walking Or Climbing Stairs? No Running Into Parantez-u msy Pt Stated MIGRATION.67584 70252 Information not available 04/20/2022 Do You Have Any Dietary Restrictions? No Information not available 04/15/2024 Sex: Unknown Functional Status Question Answer Note LastModified by [employer] ion Details LastModified Time Do you or have you ever used smokeless tobacco? Never used smokeless tobacco MIGRATION.59386 78755 Information not available 04/20/2022 Are you currently employed? No Information not available 04/15/2024 Have you been exposed to chemicals or toxins? No not that aware of Information not available 04/15/2024 Do you have transportation difficulties? No MIGRATION.26878 48951 Information not available 04/20/2022 Are you able to care for yourself? Yes MIGRATION.63446 62086 Information not available 04/20/2022 Do you have difficulty dressing or bathing? No MIGRATION.93404 41560 Information not available 04/20/2022 Do you or have you ever used e-cigarettes or vape? Never used electronic cigarettes MIGRATION.01536 68740 Information not available 04/20/2022 What is your exercise level? None MIGRATION.69924 07998 Information not available 04/20/2022 Do you use any illicit or recreational drugs? No MIGRATION.86441 73380 Information not available 04/20/2022 Do you or have you ever used any other forms of tobacco or nicotine? Yes vape 0 nicotine MIGRATION.12447 57952 Information not available 04/20/2022 What is your level of alcohol consumption? None MIGRATION.86091 79758 Information not available 04/20/2022 Are you able to walk? YESWOREST MIGRATION.10061 35431 Information not available 04/20/2022 Do you have difficulty doing errands alone? No MIGRATION.59558 84327 Information not available 04/20/2022 What is your occupation? retired MIGRATION.87114 80138 Information not available 04/20/2022 Mental Status Question Answer Note LastModified by Organizat ion Details LastModified Time Do you feel stressed (tense, restless, nervous, or anxious, or unable to sleep at night)? [id number] MIGRATION.90688054 Information not available 04/20/2022 Do you have difficulty concentrating, remembering or making decisions? No MIGRATION.52585881 Information not available 04/20/2022 Family History Relationship [...] PF 3 completed Ce Hector RN null, [facility] [place] [facility] 12/08/2022 11:49:45 COVID-19, mRNA, LNP-S, PF, shoaib-sucrose, 30 mcg/0.3 mL 3 completed Ce Hector RN null, [facility] 12/08/2022 11:50:25 RSV, recombinant, protein subunit RSVpreF, adjuvant reconstituted, 0.5 mL, PF 3 completed Ce Hector RN null, [facility] 01/09/2023 08:50:20 COVID-19, mRNA, LNP-S, PF, shoaib-sucrose, 30 mcg/0.3 mL 4 completed Bailee Perez RN null, [facility] 11/24/2023 08:40:45 Influenza, high-dose, trivalent, PF 4 completed Bailee Perez RN null, [facility] 11/24/2023 08:45:19 Influenza, split virus, trivalent, preservative 3 completed Mel[facility]OSP[facility] DIRECTOR [facility] 09/01/[facility] 11:26:16 Influenza, split virus, trivalent, PF 3 completed Melany Ruano CMA null, [facility] 09/01/2022 11:26:16 Influenza, high-dose, quadrivalent, PF 2 completed [facility]/01/[facility]22 11:26:16 COVID-19, mRNA, LNP-S, bivalent, PF, 30 mcg/0.3 mL dose 2 completed [facility]/01/2022 11:26:16 Hep A-Hep B 2 completed [facility] 09/01/2022 11:26:16 Influenza, split virus, trivalent, preservative 3 completed Not Available [facility] 04/20/2022 01:01:48 Influenza, high-dose, quadrivalent, PF 1 completed Not Available [facility] 04/20/2022 01:01:49 pneumococcal polysaccharide PPV23 0 completed Not Available [facility] 04/20/2022 01:01:49 Pneumococcal conjugate PCV 13 8 completed Not Available [facility] 04/20/2022 01:01:49 Influenza, split virus, quadrivalent, PF 7 completed Not Available [facility] 04/20/2022 01:01:49 Influenza, split virus, quadrivalent, PF 8 completed Not Available [facility] 04/20/2022 01:01:49 Tdap 4 completed Not Available [facility] 04/20/2022 01:01:49 Tdap completed Katelyn Pearson RN [facility], [facility] 10/24/2023 09:34:20 Past Encounters Encounter ID Performer Location Encounter Start Date Encounter Closed Date Diagnosis/Indication Diagnosis SNOMED-CT Code Diagnosis ICD10 Code Diagnosis Note [id number] Laura Grider MD [facility] Primary [facility] [place] [address] [place] [address] 04/28/2020 00:00:00 05/19/2020 18:02:06 [id number] Laura Grider MD [facility] [place] [address] [facility] [address] [address] [place] [address] 08/05/2020 00:00:00 08/19/2020 10:29:43 [id number] Laura Grider MD [facility] Primary [facility] [place] [address] [facility] [address] [place] [address] 11/10/2020 00:00:00 11/10/2020 12:10:22 [id number] Laura Grider MD [facility] Primary [facility] [place] [address] [facility] [address] [place] [address] 01/21/2021 00:00:00 02/15/2021 20:18:01 [id number] Rony Steele MD [facility] [address] [address] 02/01/2021 00:00:00 02/01/2021 09:50:16 [id number] Laura Grider MD [facility] Primary [facility] [place] [address] [place] [address] 03/15/2021 00:00:00 03/15/2021 11:19:29 [id number] Laura Grider MD [facility] Primary [facility] [place] [address] [facility] [address] [place] [address] 04/21/2021 00:00:00 04/21/2021 09:50:14 [id number] Laura Grider MD [facility] Primary [facility] [place] [address] [place] [address] 04/27/2021 00:00:00 04/27/2021 12:50:56 [id number] aLura Grider MD [facility] [place] [address] [facility] [address] [place] [address] 05/25/2021 00:00:00 05/25/2021 09:37:56 [id number] Laura Grider MD [facility] [place] [address] [facility] [address] [place] [address] 06/24/2021 00:00:00 06/24/2021 09:20:45 [id number] SHARA Acosta [facility] [place] [address] [facility] [address] [place] [address] 09/20/2021 00:00:00 09/20/2021 09:44:35 [id number] Rony Porter MD [facility] [address] [place] [address] 09/30/2021 00:00:00 09/30/2021 11:32:16 [id number] Laura Grider MD [facility] [place] [address] [facility] [address] [place] [address] 10/06/2021 00:00:00 10/06/2021 09:00:46 [id number] Laura Grider MD [facility] [place] [address] [place] [address] [address] [place] [address] 12/13/2021 00:00:00 12/20/2021 16:32:54 [id number] SHARA Acosta [facility] [place] [address] [facility] [address] [place] [address] 12/14/2021 00:00:00 12/14/2021 09:15:49 [id number] SHARA Acosta [facility] [place] [address] [facility] [address] [place] [address] 12/28/2021 00:00:00 12/28/2021 09:28:37 [id number] SHARA Acosta [facility] [place] [address] [place] [address] [address] [place] [address] 01/05/2022 00:00:00 01/05/2022 11:11:29 [id number] Laura Grider MD [facility] [place] [address] [place] [address] [address] [place] [address] 02/09/2022 00:00:00 02/18/2022 10:23:37 [id number] SHARA Acosta [facility] [place] [address] [place] [address] [address] [place] [address] 03/22/2022 00:00:00 03/22/2022 09:27:18 [id number] Ronny Fulton MD [facility] [address] [address] 04/05/2022 00:00:00 09/01/2022 12:31:55 [id number] Laura Grider MD [facility] [address] [place] [address] [address] [place] [address] 06/27/2022 09:30:47 06/27/2022 10:24:51 Attention deficit hyperactivity disorder 343091952 F90.9 stable, refill givenPt understand s this medication has risk for abuse/depe ndence and agrees to take it only as prescribed and to guard from loss/theft Essential hypertension 55721294 I10 Pain of ri ght shoulder joint 3865237026 6563622 M25.511 consent form signedrepe at injection performedp t tolerated well and was instructed to call if any s/s infection or worsening pain [id number] Laura Grider MD [facility] [place] [address] [place] [address] [address] [place] [address] 07/19/2022 10:05:37 07/19/2022 11:27:58 Tear of skin 335401759 T14.8XXA healing wellwill treat with abx given her diabetes and the size of the woundsoap and water daily, avoid pools, hot tubs, recreation al water until healedkeep moist and covered during the day, ok to leave open at nightf/u prn [id number] Laura Grider MD [facility] Primary Care [address] [place] [address] 09/01/2022 11:09:07 09/01/2022 11:52:37 Pain of right shoulder joint 1116188348 0257723 M25.511 Consent form signed, repeat injection performed. Pt tolerated well and was instructed to call if any s/s infection or worsening pain.Due to needing injection again within 3 months, I have advised to f/u with ortho if they continue to wear off quicker and quicker. [id number] Laura Grider MD [facility] Primary Care [address] [place] [address] 10/10/2022 09:38:55 10/10/2022 10:03:58 Chronic ulcerative proctitis 56214898 K51.[address] Ross d steroid suppositor yNow on mesalamine Diabetes mellitus 552176 09 E11.[address] Neal Essential hypertension 36264700 I10 Fatigue 15293593 R53.83 D64.9 Pain of sh oulder region 48610563 M25.519 refill given Vitamin D deficiency 347 01137 E55.9 Hyperlipidemia 93508715 E78.5 [id number] Laura Grider MD [facility] Primary Care [address] [place] [address] 10/18/2022 14:01:58 10/18/2022 14:43:19 Fever 704231710 R50.9 check UAlabs drawn earlier this AMlikely viral syndromeca ll if no improvemen t or sooner if neededsupp ortive care [id number] Laura Grider MD [facility] Primary Care [address] [place] [address] 10/27/2022 10:31:31 10/27/2022 13:27:01 Cough 49278811 R05.9 cxr showed no acute issuesneg covid testcheck labs including d-dimerpt with persistent fatigue, cough, feverisho2 sat is consistent with her baseline, she is mildly tachycardi cpush fluids, rest, [facility] givenCT angiogram chest if d-dimer elevatedca ll/return if no improvemen t in 1-2 days or sooner if neededrevi ewed s/s that warrant urgent/bobby rgent eval in meantime [id number] Laura Grider MD [facility] Primary Care [address] [place] [address] 12/20/2022 08:55:59 12/20/2022 09:43:21 Major depressive disorder 522717975 F32.9 Not in good controlcon tinue pristiq 100 mg dailyconti nue adderall 20 mg tidd/c aripiprazo letrial of vraylar 1.5 mg daily x 2 weeks then increase to 3 mg dailyremon potential med s/ef/u in 4 weeks or sooner if needed Pain of ri ght shoulder joint 6104043411 1294737 M25.511 Prednisone taperheat, gentle stretching f/u in 2 weeks for injection if needed [id number] Laura Grider MD [facility] Primary Care [address] [place] [address] 01/04/2023 16:58:47 01/05/2023 17:19:21 Pain of right shoulder joint 1855042547 2023265 M25.511 injection today, tolerated wellpost injection instructio ns givencan return for repeat injection in 3 months if needed [id number] Laura Grider MD [facility] Primary Care [address] 140 [place] [address] 01/18/2023 09:29:18 01/18/2023 09:53:52 Major depressive disorder 435959813 F32.9 Not in good controlcon tinue pristiq 100 mg dailyconti nue adderall 20 mg tidd/c aripiprazo letrial of vraylar 1.5 mg daily x 2 weeks then increase to 3 mg dailyrevie wed potential med s/ef/u in 4 weeks or sooner if needed update 01/18/23: increase vraylar 4.5 mg dailyf/u in 4 weeks Iron defic iency anemia 78290589 D50.9 cannot tolerate oral ironsees GIpersiste nt iron deficiency hematology referral given [id number] Laura Grider MD [facility] Primary Care [facility] [place] [address] [facility] [address] [place] [address] 03/08/2023 08:40:16 03/08/2023 09:22:14 Major depressive disorder 838983875 F32.9 Not in good controlcon tinue pristiq [...] 4.5 mg daily Iron defic iency anemia 57387991 D50.9 cannot tolerate oral ironsees GIpersiste nt iron deficiency update 03/08/23: tolerating mvirecheck labs [id number] Laura Grider MD [facility] [address] [facility] [address] [place] [address] 04/05/2023 16:39:50 04/05/2023 17:56:08 Pain of right shoulder joint 3167379010 9154464 M25.511 injection today, tolerated wellpost injection instructio ns givencan return for repeat injection in 3 months if needed [id number] Laura Grider MD [facility] Primary Care [facility] [place] [address] [facility] [address] [place] [address] 06/20/2023 16:31:44 06/20/2023 17:21:44 Transition of care 0317290158 105 Z75.8 Sepsis due to urinary tract infection 082885257 N39.0 reviewed notescardi ology does not think there was a cardiac eventurina ry sepsis, repeat labs [id number] Laura Grider MD [facility] Primary Care [address] [place] [address] 07/05/2023 08:10:44 07/05/2023 09:18:17 Laceration of right lower leg 4949074937 9861835 S81.811A keep elevatedso ap and water dailycall Monday if no improvemen t Pain of ri ght shoulder joint 9790704608 3452811 M25.511 injection today, tolerated wellpost injection instructio ns givencan return for repeat injection in 3 months if needed [id number] MARION Orellana [facility] Primary Care [address] [place] [address] 07/20/2023 14:30:03 07/20/2023 14:41:46 [id number] MARION Orellana [facility] Primary Care [address] [address] 09/28/2023 09:30:51 09/28/2023 10:15:58 Dysuria 64318755 R30.0 urine dip positive for nitrites/l eukocytes Thyroid di sorder screening 545930595 Z13.29 Iron deficiency 00763151 E61.1 Anemia screening 1270853 07 Z13.0 Vitamin D deficiency 347 94073 E55.9 Long-term drug therapy 840677071 Z79.899 Pt denies any lending, selling, or borrowing of medication s. Denies any cp, sob, palpitatio ns, or unusual weight loss.Revie wed controlled substance agreement requiremen ts. Refill given.[place] PDMP checked today. [id number] MARION Orellana [facility] Primary Care [address] [place] [address] 10/24/2023 08:49:31 10/24/2023 09:20:46 Administration of diphtheria, pertussis, and tetanus vaccine 055131784 Z23 will be having addition to the family within a monthtdap given Dysuria 92511491 R30.0 Attention deficit hyperactivity disorder 348866073 F90.9 [id number] SHARA Beck [facility] Primary [place] [address] [place] [address] 11/09/2023 08:55:46 11/09/2023 09:16:23 [id number] MARION Orellana [facility] Primary Care [place] [address] [place] [address] 11/23/2023 13:51:40 11/23/2023 15:16:42 Chronic obstructive pulmonary disease 28866385 J44.9 noting increased dyspneauna ble to wear cpap last nighttrial trelegy Seasonal allergy 9884414 04 J30.2 Cobalamin deficiency 190 125627 E53.8 Pain of ri ght shoulder joint 8383144101 8764394 M25.511 pt requesting shoulder injectiond eclines oral steroidsor tho referral giventrial lidocaine patches Referral needed 78496876 9 Z76.89 [id number] Flaco Denise MD [facility] [place] [address] [place] [address] 12/13/2023 08:53:32 12/13/2023 10:40:27 Bilateral shoulder joint pain 5203534798 0159008 M25.511 M25.052 [id number] Flaco Denise MD [facility] [place] [address] [place] [address] 01/03/2024 09:22:30 01/03/2024 11:17:36 Pain of left shoulder joint 0798185412 7888028 M25.771 [id number] MARION Sterling [facility] Primary [facility] [place] [address] [place] [address] 01/15/2024 14:31:36 01/15/2024 15:59:41 [id number] MARION Sterling [facility] Primary [place] [address] [place] [address] 02/29/2024 08:53:08 02/29/2024 09:52:30 Obstructive sleep apnea syndrome 51333170 G47.33 Diabetes mellitus 513719 09 E11.9 Decrease Ozempic to 1mg every week.Disco ntinue Farxiga while we wait for update A1c. [facility] 88678589 M25.[address] refill: 01/29/24UD S UTDlast appt: 02/29/24Pa robin will follow up in 3 months, sooner if needed. [id number] Ronny Fulton MD [facility] [address] [address] 03/07/2024 10:00:47 03/18/2024 13:37:06 Dyspnea on exertion 34493560 R06.09 R05.9 T78.40XA D89.9 [id number] Ronny Fulton MD S_[facility] [address] [address] 04/15/2024 11:00:02 04/15/2024 12:12:19 Dyspnea on exertion 37479551 R06.09 R05.9 T78.40XA D89.9 Obstructiv e sleep apnea syndrome 86320751 G47.33 [id number] MARION Sterling [facility] Primary Care [address] [place] [address] 04/17/2024 09:14:42 04/17/2024 10:14:46 Diabetes mellitus 17401236 E11.9 Sees Endocrinol ogy Anxiety 86150784 F41.9 Will refill meds as listed below. Patient has not had meds filled since June as she uses them very sparingly. Patient reports the most she takes in one day is two tablets and that is very rare. [facility] 52798147 M25.519 Patient is scheduled for left shoulder replacemen t on 05/20/24 Vitamin B1 2 deficiency (non anemic) 17252391 E53.8 Pre-surger y evaluation 191560160 Z01.006 [id number] MARION Sterling [facility] Primary Care [address] [place] [address] 06/17/2024 14:18:39 06/17/2024 14:49:25 Health Concerns Section Related Observation LastModified by Organization Detai ls LastModified Time None Recorded Concern Status LastModified by Organization Details LastModified Time None Recorded Advance Directives Directive Y: Payers Encounter Date Sequence Insurance Name Policy Number Policy Benoit Covered Member ID Benoit Member ID Guarantor Name 02/29/2024 1 [employer] (MEDICARE REPLACEMENT/ ADVANTAGE - PPO) [id number] Yaneth Duarte [id number] Yaneth Duarte 03/07/2024 1 [employer] (MEDICARE REPLACEMENT/ ADVANTAGE - PPO) [id number] Yaneth Duarte [id number] Yaneth Duarte 04/15/2024 1 [employer] (MEDICARE REPLACEMENT/ ADVANTAGE - PPO) [id number] Yaneth Duarte [id number] Yaneth Duarte 04/17/2024 1 [employer] (MEDICARE REPLACEMENT/ ADVANTAGE - PPO) [id number] Yaneth Duarte [id number] Yaneth Duarte 06/17/2024 1 [employer] (MEDICARE REPLACEMENT/ ADVANTAGE - PPO) [id number] Yaneth Duarte [id number] Yaneth Duarte Notes Date Note Type Note Provider Name and Address Organization Details Recorded Time 02/29/2024 text/html Patient is a 68 year old female that presents to the office for hospital follow up. Patient reports on February 08 she woke up on the floor and didn't know how she got there, went to [facility] by EMS, was admitted for 4 days. Patient states they didn't really do anything while I was there. Patient was suppose to have cardiac cath while in the hospital but it was not done, is scheduled for cardiac cath tomorrow. Patient reports she has not been able to keep her CPAP on while sleeping due to it not fitting properly. Patient's son reports that electrical/instrument technician in hospital does not think the episode was cardiac related but rather related to hypoxia from not having her CPAP on. Patient reports she has been trying to contact [facility] to schedule an appt for a new [...] has not been helpful. MARION Sterling [address] [facility], [facility] [address], [place], [address], [facility] [employer] 02/29/2024 10:32:38 03/07/2024 text/html Primary care/Ref erring provider: MARION Sterling CC: I was admitted to [facility] from 02/10/24-02/13/24 for NSTEMI and CHF. [...] lying downAlleviating factors: rest Modified [employer] ([employer]) Dyspnea Scale - Grade 2Grade 0 I only get breathless with strenuous exercise .Grade 1 I get short of breath when hurrying on the level or walking up a slight hill .Grade 2 I walk slower than people of the same age on the level because of breathlessness or have to stop for breath when walking at my own pace on the level .Grade 3 I stop for breath after walking about 100 yards or after a few minutes on the level .Grade 4 I am too breathless to leave the house or I am breathless when dressing . Treatment history: Albuterol HFA as needed since 2012 Advair diskus 250/50/mcg 1 puff BID 2012-2013Symbicort HFA 160/4.5 mcg 2 puffs BID 2016 onlyTrelegy Ellipta 100/62.5/25 mcg 1 puff daily since 11/2023, not using Other symptoms:Drooling: noDysarthria: noNeck pain: noOdynophagia: noDysphagia: noWeak mastication: noFacial weakness: noNasal speech: noProtruding tongue: noProductive cough: noWheezing: noChest tightness: yesOrthopnea: noFrequent throat clearing or swallowing: noPalpitations: noHeartburn: noEdema: no Environmental exposures:Nicotine smoke: 1 ppd 5084-7875 = 34 pack years; vaping without nicotinePaint: noDye: noDust mites: yesMold: noDamp basement: noWood burning stove: noAnimal dander: dogCockroaches: noPollen: yesArsenic: noAsbestos: noBeryllium: noCadmium: noChromium: noCoal smoke: noDiesel fumes: noNickel: noSilica: noSoot: no During the [facility] home sleep study on 06/23/21, AHI = 9.During the [facility] titration sleep study on 08/17/21, the patient [...] moderate chance of dozing. Ronny Fulton MD [address] [place] [address], [facility] [address], [place], [address], [place] - [facility] 03/07/2024 11:10:22 04/15/2024 text/html Primary care/Ref erring provider: MARION Sterling CC: I quit Trelegy because it's too expensive. Patient is here to go over her lab data and PFT as part of her shortness of breath evaluation/management. Initial development of shortness of breath: 2013Duration of shortness of breath: 12 yearsCondition of shortness of breath: stableTiming of shortness of breath: noneFrequency: up to 1 time a dayLimits activities: yesAggravating factors: walking, lying downAlleviating factors: rest Modified [employer] (mMRC) Dyspnea Scale - Grade 2Grade 0 I only get breathless with strenuous exercise .Grade 1 I get short of breath when hurrying on the level or walking up a slight hill .Grade 2 I walk slower than people of the same age on the level because of breathlessness or have to stop for breath when walking at my own pace on the level .Grade 3 I stop for breath after walking about 100 yards or after a few minutes on the level .Grade 4 I am too breathless to leave the house or I am breathless when dressing . Treatment history: Albuterol HFA as needed [...] noEdema: no Environmental exposures:Nicotine smoke: 1 ppd 8056-8286 = 34 pack years; vaping without nicotine until 02/2024Paint: noDye: noDust mites: yesMold: noDamp basement: noWood burning stove: noAnimal dander: dogCockroaches: noPollen: yesArsenic: noAsbestos: noBeryllium: noCadmium: noChromium: noCoal smoke: noDiesel fumes: noNickel: noSilica: noSoot: no CC: The CPAP is blowing hard and the leak is coming out the side of my mouth. During the [facility] home sleep study on 06/23/21, AHI = 9.At home since 03/07/24, the patient uses a [employer]Med AirSense 11 [...] AND CHANCE OF DOZINGSitting and reading - 3Watching television - 3Sitting inactive in a public place (e.g. a theater or meeting) - 0As a passenger in a car for an hour without a break - 0Lying down to rest in the afternoon when circumstances permit - 3Sitting and talking to someone - 0Sitting quietly after lunch without alcohol - 0In a car, while stopped for a few minutes in the traffic - 0TOTAL SCORE 9Subjectively, patient has a moderate chance of dozing. Ronny Fulton MD [address], [facility] [address], [place], [address], [employer] 04/15/2024 11:57:32 04/17/2024 text/html Patient is a 68 year old female that presents to the office for follow up. Patient reports she is scheduled for left shoulder replacement on 05/20/24 and needs surgery clearance. Patient reports following up with [employer] in February--had a cardiac cath completed and was cleared for surgery. Patient followed up with Dr. Fulton earlier this week and was also cleared for surgery. Patient saw Dr. Neal (senior lead developer) and was put back on Farxiga and Ozempic was increased to 2mg weekly. MARION Sterling [address], [address], [place], [address], [employer] 04/20/2024 19:26:20 OBGyn Episode No OBEpisode recorded.
--- OUTSIDE RECORDS SUMMARY | 2024-07-26 13:33 | XMS_ITS | Continuity of Care Document ---
Author Organization [facility] Address [address] [place] [address] Phone Care Team Providers Care Service Delivery Analyst Name Role Phone John OHARA MD, Kimani Unavailable Unavailable Allergies, Adverse Reactions, Alerts Substance Reaction Status Criticality codeine Other Active No Information codeine Rash Active No Information Medications Medication Instructions Dosage Effective Dates (start - stop) Status Comments cephalexin 500 mg tablet take 1 tablet by oral route every 6 hours (Four times per day) for 10 days - Active metoprolol succinate ER 25 mg tablet,extended release 24 hr take 1 tablet by oral route every day 25 MG - Active Abilify 2 mg tablet take 1 tablet by ora l route every day 2 MG - Active Xanax 0.25 mg tablet take 1 tablet by or al route 3 times every day 0.25 MG [...] mcg tablet - Active Procedures Procedure Date Arc 2 0 Sling [employer] Arm Sling X-ray exam shoulder complete, minimum 2 views Global/Postop followup visit X-ray exam shoulder complete, minimum 2 views Global/Postop followup visit Total Shoulder Replcmt Biceps Tenodesis Office/outpatient visit,est, mod 2024 BMI Documented Above Normal Limit F/U Pl an Doc Office/outpatient visit,est, mod 2024 X-ray exam shoulder complete, minimum 2 views Office/outpatient visit,new, mod 2023 Advance Directives Directive Yes / No Effective Date File Name No Information Encounters Encounter Description Practice Location Reason(s) For Visit Diagnoses Date Provider Providers Copied on Encounter [facility], [address] [place] [address], [id number], [place] [phone] [facility] No Information John Harman. [address] [place] [address], [id number] , [place]. tel:[phone] [facility], [address] [place] [address], [id number], [place] [phone] [facility] Pain in left shoulder John Harman. [address] [place] [address], [id number] , [place]. tel:[phone] Referring Provider: Kimani Gleason, [address] [place] [address], [place], [address] . tel:[phone] [facility], [address] [place] [address], [id number], [place] tel:[phone] [facility] left shoulder pain (chief complaint) Presence of left artificial shoulder joint Len Canela . [address] [place] [address], [place], [place], [id number] , [place]. [phone] Referring Provider: Kimani Gleason, [address] [place] [address], [place], [address] . tel:[phone] [facility], [address] [place] [address], [id number], [place] tel:[phone] [facility] shoulder (chief complaint) Presence of left artificial shoulder joint Apr- 5 Len PREVENTIVE MEDICINE PHYSICIAN Rola . [address] [facility], [place] [address], [place], [place], [id number] , [place]. tel:[phone] Referring Provider: Rola Xiao, [address] [facility] [address] [facility], [place], [address] . tel:[phone] [facility], [address] [address], [place], [place], [id number], [place] [phone] [facility] No Information Apr-3 5 John Harman. [address] [address], [place], [place], [id number] , [place]. tel:[phone] Referring Provider: Kimani Gleason, [facility] [address], [place], [address] . tel:[phone] [facility], [address] [address], [place], [place], [id number], [place] [phone] [facility] Pain in left shoulder Apr- 5 Len PREVENTIVE MEDICINE PHYSICIAN Rola . [address] [facility], [place] [address], [place], [place], [id number] , [place]. tel:[phone] Office/outpa tient visit,est, [facility], [address] [address], [place], [place], [id number], [place] tel:[phone] [facility] left shoulder pain (chief complaint) Complete rotatr-cuff tear/ruptr of left shoulder, not traumaOther specified arthritis, left shoulderBicipit al tendinitis, left shoulder Apr- 5 John Harman. [address] [facility], [place] [address], [place], [place], [id number] , [place]. tel:[phone] Referring Provider: Kimani Gleason, [address] [address], [place], [address] . tel:[phone] Office/outpa tient visit,est, [facility], [address] [facility] [address], [place], [place], [id number], [place] tel:[phone] [facility] left shoulder pain (chief complaint) Pain in left shoulderComplet e rotatr-cuff tear/ruptr of left shoulder, not traumaBicipital tendinitis, left shoulderOther specified arthritis, left shoulder 5 John Harman. [address] [facility], [address], [place], [place], [id number] , [place]. tel:[phone] Referring Provider: Kimani Lopez MD T, [address] [facility] [address], [place], [address] . tel:[phone] Office/outpa tient visit,[facility], [address] [facility] [address], [place], [place], [id number], [place] [phone] [facility] left shoulder pain (chief complaint) right shoulder pain (chief complaint) Pain in left shoulder 4 John Harman. [address] [facility], [address], [place], [place], [id number] , [place]. tel: [phone] Family History Family Member Type Diagnosis Age At Onset Mother Problem (finding) Cancer, unknown Mother Problem (finding) Kidney Disease Payers Payer name Insurance type Covered constitution party ID Authoriza tion(s) [employer] CI [id number] Social History Type Description Quantity Date Captured [...] Of Prese nt Illness left shoulder pain The patient r eturns 6 weeks from the above procedure. The patient has done well in the interim and notes no wound/skin problems, wound drainage, new neurological complaints, or abnormal swelling/calf pain. The patient notes they have been compliant with physical therapy and sling use. She states she had an incident where the refrigerator door hit her shoulder but her pain has improved since then. They are progressing well. No other complaints noted. She presents with pain on the left side. shoulder The patient retu rns 2 weeks from the above procedure. They note no fevers, chills, night sweats, abnormal swelling or calf pain. They have been compliant with physical therapy guided rehabilitation per their report. They note appropriate use of the sling as instructed. No other immediate post operative issues are noted. left shoulder pain Yaneth Duarte is a [...] Instructions Date Instruction Additional Infor jefferson The details of the p rocedure performed and imaging studies were discussed in detail with the patient. The patient will progress to partial weightbearing (no lifting more than 2 pounds), and may progress out of the sling. The will follow up at 3 months from surgery with repeat films and will continue PT per protocol. We discussed the role of joint prophylaxis with oral antibiotics prior to any dental or surgical procedures and to call at any time with questions, concerns, or other issues. Questions answered, verbalized understanding. Related to Presence of left artificial shoulder joint The patient will con tinue to be non-weightbearing in the sling. They will continue PT guided rehab per protocol. They will continue to ice, use over the counter and/or prescription meds as appropriate. Follow up in 4 weeks for repeat evaluation, ROM check, and likely progression out of the sling and into the next phase of PT guided rehabilitation. Questions answered, verbalized understanding. Related to Presence of left artificial shoulder joint The patient has been cleared for shoulder [...] hospital. We discussed surgery will be at [facility] and the anticipated length of stay would likely be overnight due to her CHINO. We discussed the need for a surgical services asst at the time of surgery, my nurse [...] pre-operatively. Questions answered, verbalized understanding.ADDENDUM: Due [place] Medicare's ridiculous stipulation requiring any and all [...]
--- OUTSIDE RECORDS SUMMARY | 2024-07-26 13:34 | XMS_ITS | Clinical Summary ---
Author Organization [facility] Address [address] [place] [address] Care Team Providers Care Machine Set Up Operator Paper Goods Name Role Phone Kacy Cammiepj Figueroa OD Unavailable Osmany Foster MD Unavailable [phone] Jess Lima NP Primary Care Provider Allergies Active Allergy Reactions Criticality Noted Date Comments Sulfamethoxazole-Trimethopr im Joint pain Low 08/18/2023 Codeine Itching,Rash Medium 01/22/2024 ITCHING is not an allergy, [...] a week Takes on Monday 3 Active dextroamphetami ne-amphetamine (ADDERALL) 20 mg tablet Take 1 tablet (20 mg total) by mouth 2 (two) times a day Active aspirin 81 mg enteric coated tablet Take 1 tablet (81 mg total) by mouth every morning Active ustekinumab (STELARA) injection Inject 0.5 mL (45 mg total) under the skin every 3 (three) months Active blood-glucose meter,continuou s (Dexcom G7 Garment Examiner) misc Activ e ALPRAZolam (XANAX) 1 mg tablet Take 1 tablet (1 mg total) by mouth nightly Active cyanocobalamin (Vitamin B-12) 1,000 mcg/mL injection Inject 1 mL (1,000 mcg total) into the muscle as instructed once a week Active calcium carbonate-vitam in D3 1500 mg (600 mg elemental) -200 units per tablet Take 1 tablet by mouth every morning Active cholecalciferol 25 mcg (1,000 unit) tablet Take 1 tablet (1,000 Units total) by mouth every morning Active celecoxib (CeleBREX) 200 mg capsuleIndicati ons:Postoperati ve Acute Pain,Pain Take 1 capsule (200 mg total) by mouth 2 (two) times a day 5 Active HYDROcodone-jennifer taminophen (NORCO) 5-325 mg per tabletIndicatio ns:Pain Take 1-2 tablets by mouth every 6 (six) hours as needed for pain (Use as first line pain medication) 5 Active oxyCODONE (ROXICODONE) 5 mg immediate release tabletIndicatio ns:Pain Take 1 tablet (5 mg total) by mouth every 6 (six) hours as needed for pain (Breakthrough pain only; Use in addition to/staggered with hydrocodone/APA P. 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 [...] Encounters Date Type Department Care Team Description 07/09/2024 ACO Quality [facility] Accountable Care Organization [address] [place] [id number] Janet Fabian MA 06/19/2024 2:30 PM CDT Office Visit [facility] Medical Group Cardiology [address] [place] [address] Tomy Odonnell MD Chronic heart failure with preserved ejection fraction (HCC) (Primary Dx); Nonobstructive atherosclerosis of coronary artery; Primary hypertension; Mixed hyperlipidemia 05/20/2024 11:45 AM CDT - 05/20/2024 2:30 PM CDT Surgery [facility] Operating Room [address] [place] [phone] Kimani Lopez MD Left Reverse Total Shoulder Arthroplasty, Biceps Tendodesis 05/20/2024 11:13 AM CDT Anesthesia Event [facility] Operating Room [address] [place] [phone] Pinky Martinez DO Helmbrecht, Christine Sarita, NP 05/20/2024 9:04 AM CDT - 05/21/2024 1:14 PM CDT Hospital Encounter [address] [phone] Kimani Lopez MD Discharge Disposition: Discharge to home or self care 05/02/2024 1:15 PM CDT Pre-Admission Testing [facility] Pre Anesthesia Testing [address] [place] [phone] Preop testing (Primary Dx) 04/25/2024 8:30 AM DATABASES SOFTWARE CONSULTANT - 04/25/2024 11:59 PM DATABASES SOFTWARE CONSULTANT Hospital Encounter [facility] - Imaging [address] [place] [phone] Kimani Lopez MD Left shoulder pain, unspecified chronicity Discharge Disposition: Discharge to home or self care from Last 3 Months Immunizations Immunization Administration Dates Next Due COVID-19 mRNA (Lean Startup Machine) 0.3 m L (30 mcg) vaccine (12 years and up) 12/08/2022 Hep A / Hep B 05/31/2021 Influenza, Quadrivalent, Karina l Culture-based MDCK, Preservative Free, Antibiotic Free, Intramuscular 11/20/2018 Influenza, Quadrivalent, Hig h Dose, Preservative Free, Intrr 12/08/2022,11/23/2021,11/10/2020 Influenza, Quadrivalent, Spl it, Preservative Free, Intramuscular 11/13/2019,11/09/2017,12/20/2016 Influenza, Trivalent, IM (MDV) 12/20/2012,2012 Influenza, Trivalent, Preser vative Free, Intramuscular 12/17/2012 Influenza, Unspecified 11/21/2023,02/20/2023,02/2022 Voiceit Sars-Cov-2 Bivalent V accination (12+ YRS) 11/23/2021 [...] staff should administer the PHQ-9) 0 09/04/2023 Personal Safety Answer Date Recorded Have you ever been in or are you currently in a harmful physical or emotional relationship or is someone making you feel afraid or unsafe? Denies 05/20/2024 Comments No Sex and Gender Information Value Date Recorded Sex Assigned at Not on file Legal Sex Female 3:03 AM DATABASES SOFTWARE CONSULTANT Gender Identity Not on file Sexual Orientation Not on file Obstetrics History Last Filed Vital Signs Vital Sign Reading Time Taken Comments Blood Pressure 110/64 06/19/2024 2:26 PM CDT Pulse 89 06/19/2024 2:26 PM CDT Temperature 36.4 C (97.5 F) 05/21/2024 8:30 AM CDT Respiratory Rate 18 05/21/2024 8:30 AM CDT Oxygen Saturation 94% 06/19/2024 2:26 PM CDT Inhaled Oxygen Concentration - - Weight 81.2 kg (179 lb) 06/19/2024 2:26 PM CDT Height 170.2 cm (5' 7) 06/19/2024 2:26 PM CDT Body Mass Index 28.04 06/19/2024 2:26 PM CDT Plan of Treatment Health Maintenance Due Date Last Done Comments Osteoporosis Screening-Bone Density Scan 1955 Foot Exam 1955 Well Visit 65+ 12/06/2019 Covid-19 Vaccine (2 5 season) 2023 12/08/2022, 11/23/2021, 05/31/2021, Additional history exists Breast Cancer Screening-Mammogram 02/17/2024 023 Dilated Eye Exam 02/17/2024 02/16/2023, 10/31/2022 Albumin Creatinine Ratio, Urine 08/17/2024 Depression Screening 09/03/2024 09/04/2023, 08/18/19 24 Hemoglobin A1C 11/02/2024 05/02/2024, 08/18/2023 eGFR 05/02/2025 05/02/2024, 08/20, 08/18/2023 Fall Risk Assessment 05/21/2025 05/21/2024, 08/18/19 24 Lipid Panel 06/19/2025 06/19/2024, 08/18/2023 Colon Cancer Screening-Colonoscopy 08/17/2032 08/17/2022, 06/30/2022 DTaP/Tdap/Td Vaccine (3 - Td or Tdap) 10/23/2033 10/24/2023, 05/08/2013 Pneumococcal vaccine 65+ Completed 021, 12/31/2019, 04/11/2017 Zoster Vaccine Completed 12/14/2020, 10/14/2020 Hepatitis B Screening Completed 05/31/2021 Colon Cancer Screening-CT Colonography Discontinued 06/30/2022 Colon Cancer Screening-DNA Stool Discontinued 07/01/19 23 Colon Cancer Screening-FIT Discontinued 06/30/2022 Colon Cancer Screening-Sigmoidoscopy Discontinued 06/30/2022 Hepatitis C Screening Completed 08/18/2023 Influenza Vaccine Completed 11/23/2023, , 02/20/2023, Additional history exists Medical Devices Implanted Type Area Steel Plate Caulker Device Identifier Shelf Expiration Date Model / Serial / Lot [employer] Implant Pin Kit Glenoid Ar-9607s - [id number] Implanted:Qty: 1 on 05/20/2024 by Kimani Lopez MD at [facility] Left: Shoulder [employer] 02/20/2028 AR-9607S / / [id number] [employer] Arthrex Univers Revers 36mm Suture Cup Humeral Sterile Latex Free [id number] - [id number] Implanted:Qty: 1 on 05/20/2024 by Kimani Lopez MD at [facility] Left: Shoulder [employer] [id number] 01/19/2029 AR-9502F- 36CPC / / [id number] [employer] Univers Revers 36mm Shoulder +3mm Small Insert Humeral Sterile Ar-9503s-03 - [id number] Implanted:Qty: 1 on 05/20/2024 by Kimani Lopez MD at [facility] Left: Shoulder [employer] [id number] 08/19/2028 AR-9503S- / [id number] [employer] Baseplate 24mm 10 Deg Full Augment 2 Lateralized Qz-[id number] - [id number] Implanted:Qty: 1 on 05/20/2024 by Kimani Lopez MD at [facility] Left: Shoulder [employer] [id number] 01/19/2029 AR-9580-2 410-2S / / [id number] [employer] Univers Revers 25mm Modular Post Component Glenoid Porous Ar-9582-25 - [id number] Implanted:Qty: 1 on 05/20/2024 by Kimani Lopez MD at [facility] Left: Shoulder [employer] [id number] 08/19/2028 AR-9582-2 5 / / [id number] [employer] 36mm 24 Baseplate Taper Sphere Glenoid Rp-[id number] - [id number] Implanted:Qty: 1 on 05/20/2024 by Kimani Lopez MD at [facility] Left: Shoulder [employer] [id number] 11/19/2028 AR-9564-2 436 / / [id number] [employer] 4.5mm 32mm Peripheral Screw Bone Sterile Mo-9731-80rz - [id number] Implanted:Qty: 1 on 05/20/2024 by Kimani Lopez MD at [facility] Left: Shoulder [employer] [id number] 04/19/2028 AR-9562-3 2NL / / [id number] [employer] 4.5mm 32mm Peripheral Screw Bone Sterile Pe-2696-52kf - [id number] Implanted:Qty: 1 on 05/20/2024 by Kimani Lopez MD at [facility] Left: Shoulder [employer] [id number] 10/20/2028 AR-9562-3 2NL / / [id number] [employer] Screw Glenoid Locking Reverse Univers Revers 5.5x20mm Titanium Ar-9563-20 - [id number] Implanted:Qty: 1 on 05/20/2024 by Kimani Lopez MD at [facility] Left: Shoulder [employer] [id number] 09/19/2028 AR-9563-2 0 / / [id number] [employer] Screw Glenoid Locking Reverse Univers Revers 5.5x20mm Titanium Ar-9563-20 - [id number] Implanted:Qty: 1 on 05/20/2024 by Kimani Lopez MD at [facility] Left: Shoulder [employer] [id number] 09/19/2028 AR-9563-2 0 / / [id number] [employer] Univers Revers Shoulder 6 Stem Humeral Sterile Ar-9501-06s - [id number] Implanted:Qty: 1 on 05/20/2024 by Kimani oLpez MD at [facility] Left: Shoulder [employer] [id number] 09/19/2028 AR-9501-0 6S / / [id number] Procedures Procedure Name Priority Date/Time Associated Diagnosis Comments POCT LIPID PANEL Routine 06/19/2024 2:28 PM CDT Mixed hyperlipidemia POCT GLUCOSE DEVICE Routine 05/21/2024 11:37 AM CDT POCT GLUCOSE DEVICE Routine 05/21/2024 5 :38 AM CDT POCT GLUCOSE DEVICE Routine 05/20/2024 4 :31 PM CDT POCT GLUCOSE DEVICE Routine 05/20/2024 2 :48 PM CDT POCT GLUCOSE DEVICE Routine 05/20/2024 1 :[address] AN PROCEDURE PLACEHOLDER Routine 05/20/2024 11:[address] AN ELECTIVE ENDOTRACHEAL AIRWAY Routine 05/20/2024 11:46 AM CDT ARTHROPLASTY SHOULDER - REVERSE TOTAL 05/20/2024 11:13 AM CDT Nontraumatic complete tear of left rotator cuff Bicipital tendinitis of left shoulder Climacteric arthritis, shoulder region, left CT AN PROCEDURE PLACEHOLDER Routine 05/20/2024 10:27 AM CDT POCT GLUCOSE DEVICE Routine 05/20/2024 10:04 AM CDT PAIN BLOCK Routine 05/20/2024 9:25 AM CDT EGFR Routine 05/02/2024 2:54 PM CDT Preop testing DIFFERENTIAL AUTO Routine 05/02/2024 2:5 4 PM CDT Preop testing COMPREHENSIVE METABOLIC PANEL Routine 05/02/2024 2:54 PM CDT Preop testing CBC WITH AUTO DIFFERENTIAL Routine 05/02/2024 2:54 PM CDT Preop testing HEMOGLOBIN A1C Routine 05/02/2024 2:54 PM CDT Preop testing CT SHOULDER LEFT WO CONTRAST Schedule Routine, Read Routine (OP Routine) 04/25/2024 9:20 AM DATABASES SOFTWARE CONSULTANT Left shoulder pain, unspecified chronicity HEPATITIS C ANTIBODY Routine 08/18/2023 11:21 AM [...] Recently Relevant to Health Maintenance Results * (ABNORMAL) POCT lipid panel (06/19/2024 2:28 PM CDT) Cholesterol, POC 117 <200 MG/DL HDL, POC 27(A) >=40 mg/dL Triglycerides, POC 196(A) <=149 mg/dL LDL Cholesterol POC 51 <=129 mg/dL Chol/HDL Ratio, POC 1.9 NONE Non-HDL Cholesterol, POC 91 NONE mg/dL Cholesterol Total, POC 117 30 - 199 mg/dL Capillary blood 06/19/2024 2 :28 PM CDT Tomy Odonnell MD POINT OF CARE TEST ELISABETH SANTO Final Result * POCT glucose (05/21/2024 11:37 AM CDT) Glucose, POC 112 70 - 199 mg/dL Comment: For Glucose values <35 mg/dl when Hematocrit is >60 mg/dl,the test may not accurately detect significant hypoglycemia,and testing in the Laboratory should be considered if clinically indicated. POC Performer [id number] [facility] Blood 05/21/2024 11:3 7 AM CDT 05/21/2024 11:37 AM CDT us Kimani Lopez MD LAB POCT ORDERABLES - DEVIC E Final Result Performing Organization Address [facility] Co de Phone Number [facility] [address] [place], [place] [id number] * POCT glucose (05/21/2024 5:38 AM CDT) Glucose, POC 133 70 - 199 mg/dL Comment: For Glucose values <35 mg/dl when Hematocrit is >60 mg/dl,the test may not accurately detect significant hypoglycemia,and testing in the Laboratory should be considered if clinically indicated. POC Performer [id number] [facility] Blood 05/21/2024 5:38 AM CDT 05/21/2024 5:38 AM CDT us Kimani Lopez MD LAB POCT ORDERABLES - DEVIC E Final Result Performing Organization Address City/[facility]/ZIP Co de Phone Number [facility] [address] [facility] [place], [place] [phone] * POCT glucose (05/20/2024 4:31 PM CDT) Glucose, POC 178 70 - 199 mg/dL Comment: For Glucose values <35 mg/dl when Hematocrit is >60 mg/dl,the test may not accurately detect significant hypoglycemia,and testing in the Laboratory should be considered if clinically indicated. POC Performer [id number] [facility] Blood 05/20/2024 4:31 PM CDT 05/20/2024 4:31 PM CDT Kimani Lopez MD LAB POCT ORDERABLES - DEVIC E Final Result Performing Organization Address [facility] Co de Phone Number [facility] [address] [facility] [place], [place] [phone] * POCT glucose (05/20/2024 2:48 PM CDT) Glucose, POC 137 70 - 199 mg/dL Comment: For Glucose values <35 mg/dl when Hematocrit is >60 mg/dl,the test may not accurately detect significant hypoglycemia,and testing in the Laboratory should be considered if clinically indicated. POC Performer [id number] [facility] Blood 05/20/2024 2:48 PM CDT 05/20/2024 2:48 PM CDT Kimani Lopez MD LAB POCT ORDERABLES - DEVIC E Final Result Performing Organization Address [facility] de Phone Number [place] [phone] [facility] [place] [address] * POCT glucose (05/20/2024 1:21 PM CDT) Glucose, POC 125 70 - 199 mg/dL Comment: For Glucose values <35 mg/dl when Hematocrit is >60 mg/dl,the test may not accurately detect significant hypoglycemia,and testing in the Laboratory should be considered if clinically indicated. POC Performer [id number] [facility] Blood 05/20/2024 1:21 PM CDT 05/20/2024 1:21 PM CDT Kimani Lopez MD LAB POCT ORDERABLES - DEVIC E Final Result [facility] [address] Department [place] [address] * CT AN ELECTIVE ENDOTRACHEAL AIRWAY, CT AN PROCEDURE PLACEHOLDER (05/20/2024 11:46 AM CDT) Lillie Johns CRNA - 05/20/2024 11:46 AM CDT Lillie Rios CRNA 05/20/2024 11:48 AM Airway Patient location: OR Urgency: elective Date/time: 05/20/2024 11:23 AM Indications for airway management: anesthesia Difficult airway: no Staff: Supervising provider: Pinky Martinez DO Placed by: FINISHER COLD ROLLING: Sadia Damon CRNA Emergent airway documentation: Risks and benefits discussed: yes Consent obtained: yes Consent given by: patient Airway prep: Preoxygenated: yes Patient position: sniffing Mask difficulty assessment: 1 - vent by mask Sedation level during airway: GA Final airway details: Final airway type: endotracheal airway Tube type: ETT ETT size: 7.0 mm Cuffed: yes Technique used for successful ETT placement: direct laryngoscopy Devices/Methods used in placement: stylet Insertion site: oral Blade type: Deonte Blade size: 3 Cormack-Lehane (direct): grade I - full view of glottis Cuff volume: 8 mL Cuff inflated with: air ETT to lips: 20 cm Placement verified by: auscultation and CO2 detection Airway secured with: silk tape Number of attempts: 1 Pinky Martinez DO ANESTHESIA ORDERABLES Final Result * CT AN PROCEDURE PLACEHOLDER (05/20/2024 10:27 AM CDT) Pinky Shane DO - 05/20/2024 10:27 AM CDT Pinky Martinez DO 05/20/2024 10:28 AM Peripheral Block Patient location during procedure: pre-op holding Start time: 05/20/2024 10:15 AM End time: 05/20/2024 10:20 AM Reason for block: post-op pain management per surgeon request Ultrasound image in chart or stored: yes Block type: single shot Laterality: left Block type: brachial plexus - interscalene Staff: Placed by: Anesthesiologist: Pinky Martinez DO Procedure prep: Preprocedure checklist: patient identified, procedure contraindications assessed, site marked, procedure consent, surgical consent, IV checked, risks, benefits and alternatives discussed, monitors and equipment checked and timeout performed Patient position: sitting and head of bed elevated Procedure performed while patient: sedate with meaningful contact Monitoring: ECG, oximetry and blood pressure Supplemental O2: nasal cannula Prep solution: chlorhexidine/alcohol PPE: provider hat/mask and sterile gloves Skin infiltrated with lidocaine 1%: yes Peripheral nerve block: Technique: ultrasound guided (ultrasound used for needle guidance and for visualization of local anesthetic placement) Needle type: echogenic Needle gauge: 21 G Needle length: 100 mm Injection assessment: injection made incrementally with constant monitoring, local visualized surrounding nerve on ultrasound, negative aspiration for heme, no paresthesias noted, normal resistance to injection and see flowsheet for medication details (Sedation medications documented in anesthetic record) Assessment: Block success: complete Events: patient tolerated procedure well with no complications Pinky Martinez DO ANESTHESIA ORDERABLES Final Result * POCT glucose (05/20/2024 10:04 AM CDT) Glucose, POC 116 70 - 199 mg/dL Comment: For Glucose values <35 mg/dl when Hematocrit is >60 mg/dl,the test may not accurately detect significant hypoglycemia,and testing in the Laboratory should be considered if clinically indicated. POC Performer [id number] [facility] Blood 05/20/2024 10:0 4 AM CDT 05/20/2024 10:04 AM CDT us Kimani Lopez MD LAB POCT ORDERABLES - DEVIC E Final Result [facility] [address] Department [place] [address] * eGFR (05/02/2024 2:54 PM CDT) eGFR [...] CDT 05/02/2024 2:54 PM CDT Seema Medrano EDUCATION AND TRAINING COORDINATOR LAB BLOOD ORDERAB LES Final Result [facility] [address] Department [place] [address] * (ABNORMAL) Differential, auto (05/02/2024 2:54 PM CDT) Neutrophil abs 7.1(H) 1.5 - 6.5 K/cumm Imm gran abs 0.0 0.0 - 0.1 K/cumm [facility] Lymphocyte abs 3.3 0.8 - 3.3 K/cumm [facility] Monocyte abs 0.7 0.2 - 0.8 K/cumm [facility] Eosinophil abs 0.3 0.0 - 0.5 K/cumm [facility] Basophil abs 0.1 0.0 - 0.1 K/cumm [facility] Neutrophil pct 62.2 % [facility] Comment: Interpretive Data Percent cell count reference ranges are not reported, since discordance with absolute values may lead to misinterpretation of CBC data. Current Interpretive Data was last revised on 2017. Imm gran pct 0.3 % [facility] Comment: Interpretive Data Percent cell count reference ranges are not reported, since discordance with absolute values may lead to misinterpretation of CBC data. Current Interpretive Data was last revised on 2017. Lymphocyte pct 28.5 % [facility] Comment: Interpretive Data Percent cell count reference ranges are not reported, since discordance with absolute values may lead to misinterpretation of CBC data. Current Interpretive Data was last revised on 2017. Monocyte pct 6.1 % [facility] Comment: Interpretive Data Percent cell count reference ranges are not reported, since discordance with absolute values may lead to misinterpretation of CBC data. Current Interpretive Data was last revised on 2017. Eosinophil pct 2.5 % [facility] Comment: Interpretive Data Percent cell count reference ranges are not reported, since discordance with absolute values may lead to misinterpretation of CBC data. Current Interpretive Data was last revised on 2017. Basophil pct 0.4 % [facility] Comment: Interpretive Data Percent cell count reference ranges are not reported, since discordance with absolute values may lead to misinterpretation of CBC data. Current Interpretive Data was last revised on 2017. Blood 05/02/2024 2:54 PM CDT 05/02/2024 2:54 PM CDT Seema Medrano EDUCATION AND TRAINING COORDINATOR LAB BLOOD ORDERAB LES Final Result [facility] [address] Department [place] [address] * (ABNORMAL) CBC with auto differential (05/02/2024 2:54 PM CDT) WBC 11.4(H) 3.8 - 9.9 K/cumm Hgb 13.5 11.9 - 15.5 g/dL [facility] Hct 41.7 35.6 - 45.5 % [facility] Plt 176 150 - 400 K/cumm [facility] MPV 11.2 9.1 - 12.3 fL [facility] RBC 4.69 3.90 - 5.20 M/cumm [facility] MCV 88.9 81.3 - 96.4 fL [facility] MCH 28.8 27.1 - 33.3 pg [facility] MCHC 32.4 32.3 - 35.7 g/dL [facility] RDW CV 14.6 11.1 - 14.9 % [facility] RDW SD 46.5 35.7 - 48.1 fL [facility] NRBC abs 0.00 0.00 - 0.01 K/cumm [facility] Blood 05/02/2024 2:54 PM CDT 05/02/2024 2:54 PM CDT Seema Medrano NP LAB BLOOD ORDERAB LES Final Result Performing Organization Address [facility] Co de Phone Number [facility] [address] [place] [address] * (ABNORMAL) Hemoglobin A1c (05/02/2024 2:54 PM CDT) Pathologist [facility] Hgb A1C 7.0(H) 4.0 - 5.6 % Estimated Average Glucose 154 mg/dL [facility] Comment: The ADA recommends reporting an estimated Average Glucose (eAG) with all Hemoglobin A1c results using the equation derived from a study of 507 normal and diabetic adults. Minority populations were underrepresented and children were not included. (Diabetes Care 31:7377-0723, 2008). The eAG is not equivalent to a fasting glucose. Blood 05/02/2024 2:54 PM CDT 05/02/2024 2:54 PM CDT Seema Medrano NP LAB BLOOD ORDERAB LES Final Result Performing Organization Address City/[facility]/ZIP Co de Phone Number [facility] [address] [place] [address] * (ABNORMAL) Comprehensive metabolic panel (05/02/2024 2:54 PM CDT) [facility] Sodium 136 135 - 145 mmol/L Potassium, pl 4.0 3.3 - 4.9 mmol/L [facility] Chloride 100 97 - 110 mmol/L [facility] CO2 24 22 - 32 mmol/L [facility] Anion gap 12 2 - 15 mmol/L [facility] BUN 13 6 - 25 mg/dL [facility] Creatinine 0.51(L) 0.60 - 1.10 mg/dL [facility] Glucose 86 70 - 199 mg/dL [facility] Comment: Interpretive Data Fasting glucose >/= 126 [...] 2022. Calcium 9.5 8.5 - 10.3 mg/dL [facility] Bilirubin, total 0.3 0.1 - 1.2 mg/dL [facility] Protein, pl 7.3 6.5 - 8.5 g/dL [facility] Albumin 4.0 3.5 - 5.0 g/dL [facility] Alk phos 126 40 - 130 Units/L [facility] ALT 20 7 - 45 Units/L [facility] AST 22 10 - 45 Units/L [facility] Blood 05/02/2024 2:54 PM CDT 05/02/2024 2:54 PM CDT us Seema Medrano EDUCATION AND TRAINING COORDINATOR LAB BLOOD ORDERAB LES Final Result [facility] [address] Department [place] [address] * CT Shoulder Left WO Contrast (04/25/2024 9:20 AM DATABASES SOFTWARE CONSULTANT) Anatomical Region Laterality Modality Upper Extremities Left Computed Tomog jean paul 04/25/2024 9:44 AM DATABASES SOFTWARE CONSULTANT Impressions 04/25/2024 9:44 AM DATABASES SOFTWARE CONSULTANT Degenerative changes as discussed above. Electronically signed by: Nathaniel Rock M.D. Narrative 04/25/2024 9:44 AM DATABASES SOFTWARE CONSULTANT EXAM: CT SHOULDER LEFT WO CONTRAST CLINICAL [...] IMG CT PROCEDURES Final Res ult * Hepatitis C antibody Blood (08/18/2023 11:21 [...] GENERAL [place] [address] [address] Department [place] [address] * Albumin Creatinine Ratio, Urine (08/18/2023 11:21 [...] 4:02 PM CDT Carline Ramires NP LAB URINE ORDERABLES Final Resul t [place] [address] [place] [address] * DIABETES EYE EXAM (10/31/2022 9:39 AM CDT) Historical Provider HEALTH MAINTENANCE Final Result * COLONOSCOPY (06/30/2022 12:57 PM CDT) Historical Provider HEALTH MAINTENANCE Final Result from Last 3 Months or Most Recently Relevant to Health Maintenance Insurance [facility] MEDICARE [employer] MEDICARE Advance Directives For more information, please contact: [phone] * Full Code (Latest Code Status on File) Date Activated Date Inactivated Comments 05/20/2024 2:44 PM 05/21/2024 5:20 PM Care Teams Machine Set Up Operator Paper Goods Relationship Specialty Start Date End Date Jess Lima NP [address] [place] [address] PCP - General Family Medicine 04/10/24 Cammie Woodruff OD [address] [place] [address] Optometry 03/13/19 Osmany Foster MD [address] [place] [address] Referring Physician Gastroenterology 08/18/23 [facility] Endocrinology 08/18/23
--- OUTSIDE RECORDS SUMMARY | 2024-07-26 13:34 | XMS_ITS | Referral Summary ---
Author Organization [facility] Address [address] [place] [address] Care Team Providers Care Semaphore Operator Name Role Phone Cammie Woodruff Carolina OD Unavailable Osmany Foster MD Unavailable [phone] Jess Lima NP Primary Care Provider Encounters Date Type Department Care Team Description 07/09/2024 ACO Quality [facility] Accountable Care Organization [address] [place] [address] Janet Fabian MA 06/19/2024 2:30 PM CDT Office Visit [facility] Medical Group Cardiology [address] [place] [address] Tomy Odonnell MD Chronic heart failure with preserved ejection fraction (HCC) (Primary Dx); Nonobstructive atherosclerosis of coronary artery; Primary hypertension; Mixed hyperlipidemia 05/20/2024 9:04 AM CDT - 05/21/2024 1:14 PM CDT Hospital Encounter [address] [phone] Kimani Lopez MD Discharge Disposition: Discharge to home or self care 05/20/2024 11:45 AM CDT - 05/20/2024 2:30 PM CDT Surgery [facility] [address] [place] [phone] Kimani Lopez MD Left Reverse Total Shoulder Arthroplasty, Biceps Tendodesis 05/20/2024 11:13 AM CDT Anesthesia Event [facility] [address] [place] [phone] Pinky Martinez DO Helmbrecht, Christine Sarita, NP 05/02/2024 1:15 PM CDT Pre-Admission Testing 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 - Imaging [address] [place] [phone] Kimani Lopez MD Left shoulder pain, unspecified chronicity Discharge Disposition: Discharge to home or self care from Last 3 Months Allergies Active Allergy [...] months Active blood-glucose meter,continuou s (Dexcom G7 Almond Paste Molder) misc Activ e ALPRAZolam (XANAX) 1 mg [...] (12/13/2018): Added automatically from request for surgery [id number] Allergic rhinitis 08/22/2018 Attention deficit hyperactiv ity [...] Patient states she follows with Endo at [place], patient unable to recall the provider's name. [...] Immunization Administration Dates Next Due COVID-19 mRNA (Kik) 0.3 m L (30 mcg) vaccine (12 years and up) 12/08/2022 Hep A / Hep B 05/31/2021 Influenza, Quadrivalent, Karina l Culture-based MDCK, Preservative Free, Antibiotic Free, Intramuscular 11/20/2018 Influenza, Quadrivalent, Hig h Dose, Preservative Free, Intrr 12/08/2022,11/23/2021,11/10/2020 Influenza, Quadrivalent, Spl it, Preservative Free, Intramuscular 11/13/2019,11/09/2017,12/20/2016 Influenza, Trivalent, IM (MDV) 12/20/2012,2012 Influenza, Trivalent, Preser vative Free, Intramuscular 12/17/2012 Influenza, Unspecified 11/21/2023,02/20/2023,02/2022 Sophie & Juliet Sars-Cov-2 Bivalent V accination (12+ YRS) 11/23/2021 [...] on file Legal Sex Female 3:03 AM PULP HOUSE SUPERVISOR Gender Identity Not on file Sexual [...] 06/19/2024 2:26 PM CDT Plan of Treatment Not on file Medical Devices Implanted Type Area Programmer Or Analyst Device Identifier Shelf Expiration Date Model / Serial / Lot [employer] Implant Pin Kit Glenoid Ar-9607s - [id number] Implanted:Qty: 1 on 05/20/2024 by Kimani Lopez MD at [facility] Left: Shoulder [employer] 02/20/2028 AR-9607S / / [id number] [employer] Arthrex Univers Revers 36mm Suture Cup Humeral Sterile Latex Free Pt-2425e-32rhy - [id number] Implanted:Qty: 1 on 05/20/2024 by Kimani Lopez MD at [facility] Left: Shoulder [employer] [id number] 01/19/2029 AR-9502F- 36CPC / / [id number] [employer] Univers Revers 36mm Shoulder +3mm Small Insert Humeral Sterile Ar-9503s-03 - [id number] Implanted:Qty: 1 on 05/20/2024 by Kimani Lopez MD at [facility] Left: Shoulder [employer] [id number] 08/19/2028 AR-9503S- 03 / / [id number] [employer] Baseplate 24mm 10 Deg Full Augment 2 Lateralized Tt-3308-0627-2s - [id number] Implanted:Qty: 1 on 05/20/2024 by Kimani Lopez MD at [facility] Left: Shoulder [employer] [id number] 01/19/2029 AR-9580-2 410-2S / / [id number] [employer] Univers Revers 25mm Modular Post Component Glenoid Porous Ar-9582-25 - [id number] Implanted:Qty: 1 on 05/20/2024 by Kimani Lopez MD at [facility] Left: Shoulder [employer] [id number] 08/19/2028 AR-9582-2 5 / / [id number] [employer] 36mm 24 Baseplate Taper Sphere Glenoid Gf-9102-6615 - [id number] Implanted:Qty: 1 on 05/20/2024 by Kimani Lopez MD at [facility] Left: Shoulder [employer] [id number] 11/19/2028 AR-9564-2 436 / / [id number] [employer] 4.5mm 32mm Peripheral Screw Bone Sterile Wc-3942-62cb - [id number] Implanted:Qty: 1 on 05/20/2024 by Kimani Lopez MD at [facility] Left: Shoulder [employer] [id number] 04/19/2028 AR-9562-3 2NL / / [id number] [employer] 4.5mm 32mm Peripheral Screw Bone Sterile Hm-0508-76wk - [id number] Implanted:Qty: 1 on 05/20/2024 by Kimani Lopez MD at [facility] Left: Shoulder [employer] [id number] 10/20/2028 AR-9562-3 2NL / / [id number] [employer] Screw Glenoid Locking Reverse Univers Revers 5.5x20mm Titanium Ar-9563-20 - [id number] Implanted:Qty: 1 on 05/20/2024 by Kimani Lopez MD at [facility] Left: Shoulder [employer] [id number] 09/19/2028 AR-9563-2 0 / / [id number] [employer] Screw Glenoid Locking Reverse Univers Revers 5.5x20mm Titanium Ar-9563-20 - [id number] Implanted:Qty: 1 on 05/20/2024 by Kimani Lopez MD at [facility] Left: Shoulder [employer] [id number] 09/19/2028 AR-9563-2 0 / / [id number] [employer] Univers Revers Shoulder 6 Stem Humeral Sterile Ar-9501-06s - [id number] Implanted:Qty: 1 on 05/20/2024 by Kimani Lopez MD at [facility] Left: Shoulder [employer] [id number] 09/19/2028 AR-9501-0 6S / / [id number] Procedures Procedure Name Priority Date/Time Associated Diagnosis Comments POCT LIPID PANEL Routine 06/19/2024 2:28 PM CDT Mixed hyperlipidemia POCT GLUCOSE DEVICE Routine 05/21/2024 11:37 AM CDT POCT GLUCOSE DEVICE Routine 05/21/2024 5 :38 AM CDT POCT GLUCOSE DEVICE Routine 05/20/2024 4 :31 PM CDT POCT GLUCOSE DEVICE Routine 05/20/2024 2 :48 PM CDT POCT GLUCOSE DEVICE Routine 05/20/2024 1 :21 PM CDT FL AN PROCEDURE PLACEHOLDER Routine 05/20/2024 11:46 AM CDT FL AN ELECTIVE ENDOTRACHEAL AIRWAY Routine 05/20/2024 11:46 AM CDT ARTHROPLASTY SHOULDER - REVERSE TOTAL 05/20/2024 11:13 AM CDT Nontraumatic complete tear of left rotator cuff Bicipital tendinitis of left shoulder Climacteric arthritis, shoulder region, left FL AN PROCEDURE PLACEHOLDER Routine 05/20/2024 10:27 AM [...] Read Routine (OP Routine) 04/25/2024 9:20 AM PULP HOUSE SUPERVISOR Left shoulder pain, unspecified chronicity HEPATITIS C ANTIBODY Routine 08/18/2023 11:21 AM CDT Encounter for hepatitis C screening test for low risk patient ALBUMIN CREATININE RATIO, URINE Routine 08/18/2023 11:21 AM CDT Type 2 diabetes mellitus without complication, with long-term current use of insulin (HCC) HM DIABETES EYE EXAM Routine 10/31/2022 [...] Capillary blood 06/19/2024 2 :28 PM CDT us Tomy Odonnell MD POINT OF CARE TEST ELISABETH SANTO Final Result * POCT glucose (05/21/2024 11:37 AM CDT) Glucose, POC 112 70 - 199 mg/dL Comment: For Glucose values <35 mg/dl when Hematocrit is >60 mg/dl,the test may not accurately detect significant hypoglycemia,and testing in the Laboratory should be considered if clinically indicated. POC Performer [id number] [facility] Blood 05/21/2024 11:3 7 AM CDT 05/21/2024 11:37 AM CDT us Kimani Lopez MD LAB POCT ORDERABLES - DEVIC E Final Result Performing Organization Address City/[facility] Co de Phone Number [facility] [address] [facility] [employer] [place] [address] * POCT glucose (05/21/2024 5:38 AM CDT) Glucose, POC 133 70 - 199 mg/dL Comment: For Glucose values <35 mg/dl when Hematocrit is >60 mg/dl,the test may not accurately detect significant hypoglycemia,and testing in the Laboratory should be considered if clinically indicated. POC Performer [id number] [facility] Blood 05/21/2024 5:38 AM CDT 05/21/2024 5:38 AM CDT Kimani Lopez MD LAB POCT ORDERABLES - DEVIC E Final Result Performing Organization Address [facility] de Phone Number [facility] [address] [facility] [employer] [place] [address] * POCT glucose (05/20/2024 4:31 PM CDT) Glucose, POC 178 70 - 199 mg/dL Comment: For Glucose values <35 mg/dl when Hematocrit is >60 mg/dl,the test may not accurately detect significant hypoglycemia,and testing in the Laboratory should be considered if clinically indicated. POC Performer [id number] [facility] Blood 05/20/2024 4:31 PM CDT 05/20/2024 4:31 PM CDT us Kimani Lopez MD LAB POCT ORDERABLES - DEVIC E Final Result Performing Organization Address [facility] Co de Phone Number [facility] [address] [facility] [employer] [place] [address] * POCT glucose (05/20/2024 2:48 PM CDT) Glucose, POC 137 70 - 199 mg/dL Comment: For Glucose values <35 mg/dl when Hematocrit is >60 mg/dl,the test may not accurately detect significant hypoglycemia,and testing in the Laboratory should be considered if clinically indicated. POC Performer [id number] [facility] Blood 05/20/2024 2:48 PM CDT 05/20/2024 2:48 PM CDT Kimani Lopez MD LAB POCT ORDERABLES - DEVIC E Final Result Performing Organization Address [facility] Co de Phone Number [facility] [address] [facility] [employer] [place], [place] [id number] * POCT glucose (05/20/2024 1:21 PM CDT) [facility] Signature Glucose, POC 125 70 - 199 mg/dL Comment: For Glucose values <35 mg/dl when Hematocrit is >60 mg/dl,the test may not accurately detect significant hypoglycemia,and testing in the Laboratory should be considered if clinically indicated. POC Performer [id number] [facility] Blood 05/20/2024 1:21 PM CDT 05/20/2024 1:21 PM CDT Kimnai Lopez MD LAB POCT ORDERABLES - DEVIC E Final Result Performing Organization Address [facility] Co de Phone Number [facility] [address] [facility] [employer] [place], [place] [id number] * FL AN ELECTIVE ENDOTRACHEAL AIRWAY, FL AN PROCEDURE PLACEHOLDER (05/20/2024 11:46 AM CDT) Narrative Lillie Rios CRNA - 05/20/2024 11:46 AM CDT Lillie Rios CRNA 05/20/2024 11:48 AM Airway Patient location: OR Urgency: elective Date/time: 05/20/2024 11:23 AM Indications for airway management: anesthesia Difficult airway: no Staff: Supervising provider: Pinky Martinez DO Placed by: AUTISM SPECIALIST: Sadia Damon CRNA Emergent airway documentation: Risks [...] Martinez DO ANESTHESIA ORDERABLES Final Result * FL AN PROCEDURE PLACEHOLDER (05/20/2024 10:27 AM CDT) Narrative Pinky Martinez DO - 05/20/2024 10:27 AM CDT Pinky [...] patient tolerated procedure well with no complications us Pinky Martinez DO ANESTHESIA ORDERABLES Final Result * POCT glucose (05/20/2024 10:04 AM CDT) Glucose, POC 116 70 - 199 mg/dL Comment: For Glucose values <35 mg/dl when Hematocrit is >60 mg/dl,the test may not accurately detect significant hypoglycemia,and testing in the Laboratory should be considered if clinically indicated. POC Performer [id number] [facility] Blood 05/20/2024 10:0 4 AM CDT 05/20/2024 10:04 AM CDT Kimani Lopez MD LAB POCT ORDERABLES - DEVIC E Final Result [facility] [address] Department [place] [address] * eGFR (05/02/2024 2:54 PM CDT) eGFR [...] PM CDT 05/02/2024 2:54 PM CDT us Seemaantonio Florence Mitchell FINISH SAW OPERATOR LAB BLOOD ORDERAB LES Final Result [facility] [address] Department [place] [address] * (ABNORMAL) Differential, auto (05/02/2024 2:54 PM CDT) Neutrophil abs 7.1(H) 1.5 - 6.5 K/cumm Imm gran abs 0.0 0.0 - 0.1 K/cumm [facility] Lymphocyte abs 3.3 0.8 - 3.3 K/cumm [facility] Monocyte abs 0.7 0.2 - 0.8 K/cumm [facility] Eosinophil abs 0.3 0.0 - 0.5 K/cumm [facility] Basophil abs 0.1 0.0 - 0.1 K/cumm [facility] Neutrophil pct 62.2 % [facility] Comment: Interpretive Data Percent cell count reference ranges are not reported, since discordance with absolute values may lead to misinterpretation of CBC data. Current Interpretive Data was last revised on 2017. Imm gran pct 0.3 % [facility] Comment: Interpretive Data Percent cell count reference ranges are not reported, since discordance with absolute values may lead to misinterpretation of CBC data. Current Interpretive Data was last revised on 2017. Lymphocyte pct 28.5 % [facility] Comment: Interpretive Data Percent cell count reference ranges are not reported, since discordance with absolute values may lead to misinterpretation of CBC data. Current Interpretive Data was last revised on 2017. Monocyte pct 6.1 % [facility] Comment: Interpretive Data Percent cell count reference ranges are not reported, since discordance with absolute values may lead to misinterpretation of CBC data. Current Interpretive Data was last revised on 2017. Eosinophil pct 2.5 % [facility] Comment: Interpretive Data Percent cell count reference ranges are not reported, since discordance with absolute values may lead to misinterpretation of CBC data. Current Interpretive Data was last revised on 2017. Basophil pct 0.4 % [facility] Comment: Interpretive Data Percent cell count reference ranges are not reported, since discordance with absolute values may lead to misinterpretation of CBC data. Current Interpretive Data was last revised on 2017. Blood 05/02/2024 2:54 PM CDT 05/02/2024 2:54 PM CDT Seema Medrano NP LAB BLOOD ORDERAB LES Final Result Performing Organization Address City/[facility]/ZIP Co de Phone Number [facility] [address] [employer] [place], [place] [id number] * (ABNORMAL) CBC with auto differential (05/02/2024 2:54 PM CDT) WBC 11.4(H) 3.8 - 9.9 K/cumm Hgb 13.5 11.9 - 15.5 g/dL [facility] Hct 41.7 35.6 - 45.5 % [facility] Plt 176 150 - 400 K/cumm [facility] MPV 11.2 9.1 - 12.3 fL [facility] RBC 4.69 3.90 - 5.20 M/cumm [facility] MCV 88.9 81.3 - 96.4 fL [facility] MCH 28.8 27.1 - 33.3 pg [facility] MCHC 32.4 32.3 - 35.7 g/dL [facility] RDW CV 14.6 11.1 - 14.9 % [facility] RDW SD 46.5 35.7 - 48.1 fL [facility] NRBC abs 0.00 0.00 - 0.01 K/cumm [facility] Blood 05/02/2024 2:54 PM CDT 05/02/2024 2:54 PM CDT Seema Medrano NP LAB BLOOD ORDERAB LES Final Result Performing Organization Address City/[facility]/ZIP Co de Phone Number [facility] [address] Department [facility] [place] [address] * (ABNORMAL) Hemoglobin A1c (05/02/2024 2:54 PM CDT) Hgb A1C 7.0(H) 4.0 - 5.6 % Estimated Average Glucose 154 mg/dL [facility] Comment: The ADA recommends reporting an estimated Average Glucose (eAG) with all Hemoglobin A1c results using the equation derived from a study of 507 normal and diabetic adults. Minority populations were underrepresented and children were not included. (Diabetes Care 31:5784-5759, 2008). The eAG is not equivalent to a fasting glucose. Blood 05/02/2024 2:54 PM CDT 05/02/2024 2:54 PM CDT Seema Medrano FINISH SAW OPERATOR LAB BLOOD ORDERAB LES Final Result [facility] [address] Department [place] [address] * (ABNORMAL) Comprehensive metabolic panel (05/02/2024 2:54 PM CDT) Pathologist [facility] Sodium 136 135 - 145 mmol/L Potassium, pl 4.0 3.3 - 4.9 mmol/L [facility] Chloride 100 97 - 110 mmol/L [facility] CO2 24 22 - 32 mmol/L [facility] Anion gap 12 2 - 15 mmol/L [facility] BUN 13 6 - 25 mg/dL [facility] Creatinine 0.51(L) 0.60 - 1.10 mg/dL [facility] Glucose 86 70 - 199 mg/dL [facility] Comment: Interpretive Data Fasting glucose [...] 2022. Calcium 9.5 8.5 - 10.3 mg/dL [facility] Bilirubin, total 0.3 0.1 - 1.2 mg/dL [facility] Protein, pl 7.3 6.5 - 8.5 g/dL [facility] Albumin 4.0 3.5 - 5.0 g/dL [facility] Alk phos 126 40 - 130 Units/L [facility] ALT 20 7 - 45 Units/L [facility] AST 22 10 - 45 Units/L [facility] Blood 05/02/2024 2:54 PM CDT 05/02/2024 2:54 PM CDT us Seema Medrano NP LAB BLOOD ORDERAB LES Final Result Performing Organization Address City/State/[facility] Co de Phone Number [facility] [address] Department [place] [address] * CT Shoulder Left WO Contrast (04/25/2024 9:20 AM PULP HOUSE SUPERVISOR) Anatomical Region Laterality Modality Upper Extremities Left Computed Tomog jean paul 04/25/2024 9:44 AM PULP HOUSE SUPERVISOR Impressions 04/25/2024 9:44 AM PULP HOUSE SUPERVISOR Degenerative changes as discussed above. Electronically signed by: Nathaniel Rock M.D. Narrative 04/25/2024 9:44 AM PULP HOUSE SUPERVISOR EXAM: CT SHOULDER LEFT WO CONTRAST CLINICAL [...] by: Nathaniel Rock M.D. Kimani Lopez MD [facility] [place] PROCEDURES Final Res ult * Hepatitis [...] ORDER JEREMIAH Final Result Performing Organization Address [facility] [place] [address] [address] Department [employer] [place] [address] * Albumin Creatinine Ratio, Urine (08/18/2023 11:21 [...] ORDERABLES Final Resul t Performing Organization Address [facility] [place] [address] [address] Department of [employer] [place] [address] * DIABETES EYE EXAM (10/31/2022 9:39 AM CDT) Historical Provider HEALTH MAINTENANCE Final Result * HM COLONOSCOPY (06/30/2022 12:57 PM CDT) Historical Provider HEALTH MAINTENANCE Final Result from Last 3 Months or Most Recently Relevant to Health Maintenance Insurance [facility] MEDICARE [employer] MEDICARE Advance Directives For more information, please contact: [phone] * Full Code (Latest Code Status on File) Date Activated Date Inactivated Comments 05/20/2024 2:44 PM 05/21/2024 5:20 PM Care Teams Semaphore Operator Relationship Specialty Start Date End Date Jess Lima NP [address] [place] [address] [place] [address] PCP - General Family Medicine 04/10/24 Cammie Woodruff, [address] [place] [address] Optometry 03/13/19 Osmany Foster MD [address] [place] [address] Referring Physician Gastroenterology 08/18/23 [facility] Endocrinology 08/18/23
[2024-07-26 14:01] LABS: Hematocrit 43.4 % (37.0-47.0); Hemoglobin 13.9 g/dL (12.0-15.0); Mean Corpuscular Hemoglobin 27.8 pg (26-34); Mean Corpuscular Volume 86.8 fl (80-100); Mean Platelet Volume 10.1 fl (7.4-10.4); Platelet Count Result 196 k/mm3 (150-375); Red Cell Distribution Width 14.6 % (11.5-14.5); White Blood Count 8.7 K/mm3 (4.5-10.0)
[2024-07-26 14:19] LABS: Alanine Aminotransferase 27 U/L (6-35); Albumin Level 4.5 g/dL (3.5-5.1); Alkaline Phosphatase 117 U/L (38-126); Anion Gap 10 mmol/L (4-12); Aspartate Amino Transferase 47 U/L (14-36); Bilirubin,Total 0.6 mg/dL (0.2-1.3); Blood Urea Nitrogen 20 mg/dL (7-17); CRP < 0.5 mg/dL (<1.0); Carbon Dioxide 27 mmol/L (22-30); Chloride 103 mmol/L (98-107); Estimated Glomerular Filt Rate > 60; Glucose 109 mg/dL (65-110); Potassium 4.2 mmol/L (3.4-5.0); Sodium 140 mmol/L (137-145); Total Protein 8.5 g/dL (6.3-8.2)
[2024-07-26 14:30] LABS: Erythrocyte Sedimentation Rate 11 mm/hr (0-20)
[2024-07-26 15:06] LABS: Hepatitis B Surface Antigen Negative (Negative)
[2024-07-26 15:25] LABS: Hepatitis B Surface Anti Res Negative
[2024-07-28 05:13] LABS: Hepatitis B Core Ab Total NON-REACTIVE (NON-REACTIVE)
[2024-07-31 08:09] LABS: NIL 0.04 IU/mL; Quantiferon TB Plus, 1T NEGATIVE (NEGATIVE); TB1-NIL 0.03 IU/mL; TB2-NIL 0.02 IU/mL
== END 2024-07-26 13:27 | disposition home or self-care (01) ==
LOC: ANHLAB 13:31
PROVIDERS: PCP Nurse Practitioner Family; Visit Provider Nurse Practitioner
DX: K51.20 Ulcerative (chronic) proctitis without complications (principal); K92.1 Melena; R19.7 Diarrhea, unspecified; Z72.89 Other problems related to lifestyle; Z11.59 Encounter for screening for other viral diseases
CPT/HCPCS: 36415; 80053; 85027; 85652; 86140; 86480; 86704; 86706; 87340

== ENCOUNTER 2024-07-30 10:43 | Outpatient (CLI) | payer MEDICARE, SELFPAY ==
[2024-07-30 11:54] LABS: Toxigenic C. Diff NEGATIVE (NEGATIVE)
--- OUTSIDE RECORDS SUMMARY | 2024-07-30 11:58 | XMS_ITS | Data Portability ---
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 Role Phone MARION GREGG ZACHARY Primary Care Provider MARION GREGG ZACHARY Referring Provider Assessment Encounter Date Assessment Date Assessment LastModified by Organization Details LastModified Time 03/07/2024 03/07/2024 Assessment: Mild OSAHS, AHI = 9 Bullous emphysema 7 mm RUL nodule Plan: The following were reviewed and explained to the patient: [facility] home sleep study 06/23/21 AHI = 9, supine AHI = 10 [facility] titration sleep study 08/17/21 sleep onset = 14.5 minutes, REM onset = none, Respironics medium DreamWisp nasal mask @ 10 cmH2O, PLMI =10 [facility] split night sleep study 01/02/23 sleep onset = 5 minutes, AHI = 12, ResMed medium AirFit F30i full face mask @ 12 cmH2O, PLMI = 28 [facility] titration sleep study 05/10/23 sleep onset = [...] done as follows: Respiratory allergen panel for [facility] Serum IgE Serum total IgG, IgG1, IgG2, IgG3, IgG4 Shhil-4-obfcvfobpu n phenotype and level TB stimulated gamma [...] none Keep ramp off. 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 Keep humidifier level at 6. Patient is [...] carrier. Patient will setup an appointment with [facility] for supplies and pressure adjustments. A major [...] were reviewed and explained to the patient: [facility] home sleep study 06/23/21 AHI = 9, supine AHI = 10 [facility] titration sleep study 08/17/21 sleep onset = 14.5 minutes, REM onset = none, Respironics medium DreamWisp nasal mask @ 10 cmH2O, PLMI =10 [facility] split night sleep study 01/02/23 sleep onset = 5 minutes, AHI = 12, ResMed medium AirFit F30i full face mask @ 12 cmH2O, PLMI = 28 [facility] titration sleep study 05/10/23 sleep onset = 87 minutes, REM onset = 310 minutes, ResMed medium AirFit F30 full face mask @ 11 cmH2O, PLMI = 0.[address] 09/15/20 bullous emphysema, 7 [address] RUL nodule Chest CT 10/06/21 bullous emphysema, 7 mm RUL nodule Chest CT 02/09/24 bullous emphysema, cardiomegaly, no P[facility] 02/10/24-02/13/24 NSTEMI, CHF Lab data 03/07/24 [...] none Keep ramp off. 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 Keep humidifier level at 6. Patient is [...] carrier. Patient will setup an appointment with [facility] for supplies and pressure adjustments. A major [...] n (aat) phenotype , serum 2024 025 [facility] (Lab), [address] [place], [address], 03/25/2024 15:26:37 BNP (B-type natriuret ic peptide), serum or plasma 2024 025 [facility] (Lab), [address] [place], [address], 03/07/2024 14:03:27 ige, total, serum 2024 025 [facility] (Lab), [address] [place], [address], 04/10/2024 13:01:53 tb (M tuberculo sis), ifn-gamma aliza, blood 2024 025 [facility] (Lab), [address] [place], [address], 04/10/2024 13:01:[address] 1+2+3+4, serum 2024 025 [facility] (Lab), [address] [place], [address], 04/10/2024 13:01:54 respirato ry allergen panel, [facility] A, serum 2024 025 [facility] (Lab), [address] [place], [address], 04/10/2024 13:01:54 respirato ry allergen panel - [facility] b 2024 025 [facility] (Lab), [address] [place], [address], 04/10/2024 13:01:54 eosinophi ls, quant, blood 2024 025 [facility] (Lab), [address] [place], [address], 04/10/2024 13:01:54 glycohemo globin, total, blood 2024 025 [email or web address] [facility] (Lab), [address] [place], [address], 02/29/2024 10:31:54 Referral pulmonolo gist referral - Please call patient to schedule an appointme nt. Thank you. 2024 025 [email or web address] Ronny Fulton MD, [address] [place], [address], 03/28/2024 09:15:41 Procedures None recorded. Surgeries None recorded. Imaging electroca rdiogram 2024 025 [email or web address] [address], [place], [address], 04/17/2024 10:21:05 Medication Orders oxycodone -acetamin ophen 5 mg-325 mg tablet 2024 025 [facility], [address] [place] [address], [address], 04/17/2024 09:47:41 ibuprofen 800 mg tablet 2024 025 [facility], [address] [place] [address], [address], 04/17/2024 09:47:37 alprazola m 2 mg tablet 2024 025 [facility], [address] [place] [address], [address], 04/17/2024 09:47:40 oxycodone -acetamin ophen 5 mg-[address] [facility] [address], [address] [facility], [place], [address], 04/15/2024 11:13:17 Patient TargetsNo targets recorded. Patient Instructions Encounter Date Encounter Id Patient Instructions Last Modified By Organization Details Last Modified Time 03/07/2024 [id number] complete PFT w/ post bronchodilator spirometry* - Please call patient to schedule. NPAN [id number] per [employer]. [email or web address] Not available 04/10/2024 09:54:17 04/15/2024 [id number] methacholine challenge* - Please call patient to schedule. NPAN [id number] per [employer]. 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 Thank you. Referring Physician: Jess Lima, Family Medicine, Encounter Date: 02/29/2024 Results Created Date Observation Date Name Description Value Unit Range Abnormal Flag Note LastModifiedBy Organization Detail LastModifiedTime 06/18/19 25 06/17/2024 urina lysis , dipst ick Leukocytes (reference range: negative ankit/ l) Large Not Available [address], [place], [address], 06/17/2024 14:29:47 06/18/19 25 06/17/2024 urina lysis , dipst ick Nitrite (reference rage: negative mg/dl) positi ve Not Available [address], [place], [address], 06/17/2024 14:29:47 06/18/19 25 06/17/2024 urina lysis , dipst ick Urobilinogen (reference range: 0.2-1 mg/dl) 0.2 Not Available [address], [place], [address], 06/17/2024 14:29:47 06/18/19 25 06/17/2024 urina lysis , dipst ick Protein (reference range: negative mg/dl) Negati ve Not Available [address], [place], [address], 06/17/2024 14:29:47 06/18/19 25 06/17/2024 urina lysis , dipst ick pH (reference range: 5-7) 5.5 Not Available [address], [place], [address], 06/17/2024 14:29:47 06/18/19 25 06/17/2024 urina lysis , dipst ick Blood (reference range: negative Darrius/ l) Non-He molyze d: Trace Not Available [address], [place], [address], 06/17/2024 14:29:47 06/18/19 25 06/17/2024 urina lysis , dipst ick Specific Ralls (reference range: 1.005-1.030) 1.020 Not Available [address], [place], [address], 06/17/2024 14:29:47 06/18/19 25 06/17/2024 urina lysis , dipst ick Ketone (reference range: negative mg/dl) Negati ve Not Available [address], [place], [address], 06/17/2024 14:29:47 06/18/19 25 06/17/2024 urina lysis , dipst ick Bilirubin (reference range: negative mg/dl) Negati ve Not Available [address], [place], [address], 06/17/2024 14:29:47 06/18/19 25 06/17/2024 urina lysis , dipst ick Glucose (reference range: negative mg/dl) 500 Not Available [address], [place], [address], 06/17/2024 14:29:47 06/18/19 25 06/17/2024 urina lysis , dipst ick Appearance Cloudy Not Available [address], [place], [address], 06/17/2024 14:29:47 06/18/19 25 06/17/2024 urina lysis , dipst ick Color Yellow Not Available [address], [place], [address], 06/17/2024 14:29:47 02/09/20 24 02/09/2024 imagi ng/di agnos tic resul t No observ ation record ed. [address] [address], [place], [address], 02/09/2024 06:31:48 02/09/20 24 02/09/2024 imagi ng/di agnos tic resul t No observ ation record ed. [address] [address], [place], [address], 02/09/2024 06:39:16 02/09/20 24 02/09/2024 imagi ng/di agnos tic resul t No observ ation record ed. [address] [address], [place], [address], 02/09/2024 07:07:16 02/09/20 24 02/09/2024 imagi ng/di agnos tic resul t No observ ation record ed. [address] [address], [place], [address], 02/09/2024 08:39:10 02/10/20 24 02/10/2024 imagi ng/di agnos tic resul t No observ ation record ed. [address] [address], [place], [address], 02/10/2024 16:54:29 02/16/20 24 02/15/2024 imagi ng/di agnos tic resul t No observ ation record ed. [address] [address], [place], [address], 02/16/2024 09:56:53 03/01/19 25 02/09/2024 CT, chest , w/o contr ast No observ ation record ed. BARCODE Not Available 2024 14:43:15 04/15/19 25 04/15/2024 compl ete PFT w/ post bronc hodil ator yo metry * No observ ation record ed. BARCODE Not Available 2024 14:32:37 04/15/19 25 04/15/2024 compl ete PFT w/ post [facility] hodil ator yo metry * No observ ation record ed. BARCODE Not Available 2024 14:55:18 04/17/19 jhoan lynch am No observ ation record ed. [email or web address] [facility] [address], [place], [address], 04/17/2024 09:43:27 Result Notes None recorded. Problems Name Problem SNOMED Code Status Onset Date Resolution Date Notes Provider Name and Address Organization Details Recorded Time Bipolar disorder 99295936 Active Not Available [facility] 3 00:53:11 Calcific tendinitis of shoulder 67449076 Active Not Available [facility] 3 00:53:11 Attention deficit hyperactivity disorder, predominantly inattentive type 96839700 Active Not Available [facility] 3 00:53:11 Osteoarthriti s 975218406 Active Not Available [facility] 3 00:53:11 Essential hypertension 19739031 Active Not Available [facility] 3 00:53:12 Allergic rhinitis 82571341 Active Not Available [facility] 3 00:53:12 Diabetes mellitus 58692914 Active Not Available [facility] 3 00:53:12 Obstructive sleep apnea syndrome 98150203 Active 2021 Not Available [facility] 3 00:53:12 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 Not Available [facility] 3 00:53:12 Ex-smoker 6315124 Active Not Available [facility] 3 00:53:12 Chronic ulcerative proctitis 52622522 Active 2022 Laura Grider MD [address] [address], [place], [address] , [employer] [facility] [employer] 3 09:54:31 Vitamin D deficiency 80336942 Active 2022 Laura Grider MD [address], [place], [address] , [employer] [facility] [employer] [facility] 3 09:57:13 Hyperlipidemi a 32204679 Active 2022 Laura Grider MD [address], [place], [address] , [facility] [employer] [facility] 3 09:57:58 Mixed anxiety and depressive disorder 582471896 Active 2022 Laura Grider MD [address], [place], [address] , [facility] [employer] [facility] [employer] [facility] 3 15:40:00 Iron deficiency 85572793 Active 2023 MARION Orellana [address], [place], [address] , [facility] [employer] [facility] [employer] [facility] 4 09:52:22 Cobalamin deficiency 093568583 Active 2023 MARION Orellana [address], [place], [address] , [facility] [employer] [facility] [employer] [facility] 4 14:29:47 Attention deficit hyperactivity disorder 517127828 Active 2024 MARION Sterling [address], [place], [address] , [facility] [employer] [facility] [employer] [facility] 5 14:37:29 Dyspnea on exertion 80013736 Active 2024 Ronny Fulton MD [address], [place], [address] , [facility] [employer] [facility] 5 11:33:50 Pain of shoulder region 01868963 Active 2024 MARION Sterling [address], [place], [address] , [facility] [place] [facility] 5 09:39:28 Pain in right lower limb 601169072 Active 2024 MARION Sterling [address], [place], [address] , [facility] [employer] [facility] 5 09:42:52 Anxiety 89538275 Active 2024 MARION Sterling [address], [place], [address] , [facility] 5 19:25:42 Dysuria 23183183 Active 2024 Bailee Perez RN [facility], [facility] 5 14:29:48 Acute urinary tract infection 233172797 Active 2024 MARION Sterling [address], [place], [address] , [facility] 5 14:57:27 Notes:Medical History: Anxie ty/Bipolar depression/ADHD [...] catheterization 2024 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 Procedures Surgical History Date Name Laterality Status Provider Name and Address Organization Details Recorded Time 01/03/20 24 Ortho - Cortisone Injection completed Kathy Ross NP [address], [place], [address], [facility] 01/03/2024 15:00:40 12/13/19 24 Ortho - Cortisone Injection completed Flaco Denise MD [address], [place], [address], [facility], [facility] 12/13/2023 10:33:59 07/05/19 24 Cortisone Injection (Dequervains/ Greater Trochantric/ Lateral Epicondylitis/ Shoulder/ Subacromial Space/ Knee or Trigger Finger) completed Laura Grider MD [address], [place], [address], [facility] [place] [facility] 07/05/2023 08:50:43 06/20/19 24 Transitional_Ca re_Management completed Ce Hector RN [facility] 06/20/2023 16:41:15 01/05/20 23 Cortisone Injection (Dequervains/ Greater Trochantric/ Lateral Epicondylitis/ Shoulder/ Subacromial Space/ Knee or Trigger Finger) completed Laura Grider MD [address], [place], [address], [facility] [facility] 01/19/2023 19:14:01 09/02/19 23 Cortisone Injection (Dequervains/ Greater Trochantric/ Lateral Epicondylitis/ Shoulder/ Subacromial Space/ Knee or Trigger Finger) completed SHARA Acosta [address], [place], [address], [facility] [place] [facility] 08/31/2022 08:22:44 07/01/19 23 Colonoscopy completed Hope Zamora LPN [facility] 06/30/2022 14:35:15 Knee Replacement completed Not Available [facility] 04/20/2022 00:47:57 procedure on urinary bladder completed Not Available [facility] 04/20/2022 00:47:57 Knee Replacement completed Not Available [facility] 04/20/2022 00:47:57 Imaging Results None recorded. Procedure Notes None recorded. Medical Equipment None Reported. Allergies Allergen ID Allergen Name Allergen Category Reaction Reaction Severity Criticality Documentation Date Start Date Code Code System Note Provider Name and Address Organization Details Recorded Time 1284 triamcino lone medicatio n Not available Not available Not available 04/20/2022 97605 RxNorm OINT Not Available [facility] 3 01:02:05 1285 codeine medicatio n itching Not available Not available 04/20/2022 2670 RxNorm Not Available [facility] 01:02:05 Medications Name Sig Start Date Stop [...] suspension for injection in office 03/01 completed [facility]: [id number] Not Available Not Available Not [...] Not Available Not Available Not Available cyanocobal roibns (vit B-12) 1,000 mcg/mL injection solution INJECT [...] propionate 50 mcg/actuat ion nasal spray,susp ension [place] 1 spray every day by intranasa l [...] Not Available Not Available Not Available Fluvirin 4032-6351 45 mcg (15 mcg x 3)/0.5 mL [...] Updated DateTime 02/29/2024 170.18 cm 26.6 kg/m2 23980.7 g 96.9 [degF] Ce Hector RN [place] [facility] [employer] 02/29/2024 09:05:40 Date Recorded Heart rate Oxygen saturation Oxygen saturation in Arterial blood by Pulse oximetry Heart rate Respiratory rate Provider Name and Address Organization Details Last Updated DateTime 5 92 /min 96 % 96 % 92 /min 15 /min Ronny Fulton MD [address], [place], [address], [place] [employer] [facility] [employer] 5 10:30:48 Date Recorded Body height Body mass index (BMI) Body weight Body temperature Systolic blood pressure Diastolic blood pressure Provider Name and Address Organization Details Last Updated DateTime 5 170.18 cm 26.9 kg/m2 13980.8 9 g 97.2 [degF] 116 mm[Hg] 66 mm[Hg] Irma Chua MA [place] [employer] 5 10:23:09 Date Recorded Body height Body mass index (BMI) Heart rate Oxygen saturation Oxygen saturation in Arterial blood by Pulse oximetry Respiratory rate Heart rate Provider Name and Address Organization Details Last Updated DateTime 5 167.64 cm 28 kg/m2 105 /min 95 % 95 % 14 /min 105 /min Ronny Fulton MD [address], [place], [address] , [place] [employer] 5 11:55:59 Date Recorded Body weight Body temperature Systolic blood pressure Diastolic blood pressure Provider Name and Address Organization Details Last Updated DateTime 04/15/2024 12266.64 g 98.3 [degF] 138 mm[Hg] 76 mm[Hg] Harleen Sam [place] [employer] [facility] [employer] 5 11:10:53 Date Recorded Body height Body mass index (BMI) Body weight Body temperature Heart rate Oxygen saturation Oxygen saturation in Arterial blood by Pulse oximetry Systolic blood pressure Diastolic blood pressure Provider Name and Address Organization Details Last Updated DateTime 5 167.64 cm 28.2 kg/m2 84678.6 6 g 97.3 [degF] 80 /min 94 % 94 % 112 mm[Hg] 70 mm[Hg] Irma Chua [place] [employer] [facility] [employer] 5 09:26:36 Social History Question Answer Notes LastModified by Organizat ion Details LastModified Time Tobacco Smoking Status Former Smoker Not Available [facility] 04/20/2022 00:45:45 Do You Have An Advance Directive? Yes MIGRATION.48575 [id number] Information not available 04/20/2022 Are You Blind Or Do You Have Difficulty Seeing? No MIGRATION.91788 98237 Information not available 04/20/2022 What Is Your Level Of Caffeine Consumption? Occasional MIGRATION.39216 21524 Information not available 04/20/2022 How Much Tobacco Do You Chew? None MIGRATION.33447 81727 Information not available 04/20/2022 In The 14 Days Before Symptom Onset, Have You Had Close Contact With A Laboratory-confir med COVID-19 While That Case Was Ill? No MIGRATION.30939 15648 Information not available 04/20/2022 In The 14 Days Before Symptom Onset, Have You Had Close Contact With A Person Who Is Under Investigation For COVID-19 While That Person Was Ill? No MIGRATION.54004 95135 Information not available 04/20/2022 Are You Deaf Or Do You Have Serious Difficulty Hearing? No MIGRATION.33082 19795 Information not available 04/20/2022 What Type Of Diet Are You Following? REGULAR MIGRATION.95936 28777 Information not available 04/20/2022 Which Illicit Or Recreational Drugs Have You Used? None MIGRATION.23047 20685 Information not available 04/20/2022 Do You Have An Electrostatic Air Filter? No MIGRATION.63871 23022 Information not available 04/20/2022 Do You Have A Humidifier? Yes MIGRATION.28221 68795 Information not available 04/20/2022 Do You Use Insect Repellent Routinely? Yes MIGRATION.73259 09708 Information not available 04/20/2022 Do You Have A Medical Power Of Patient Centered Care Specialist? Yes MIGRATION.64929 58013 Information not available 04/20/2022 Do You Have Moisture Problems In Your Home? No MIGRATION.04269 29134 Information not available 04/20/2022 What Was The Date Of Your Most Recent Tobacco Screening? 04/15/2024 Information not available 04/15/2024 Do You Have Any Pets? Yes MIGRATION.80169 38116 Information not available 04/20/2022 What Is Your Relationship Status? Information not available 04/15/2024 Do You Use Your Seat Belt Or Car Seat Routinely? Yes [email or web address] Information not available 03/07/2024 Do You Have Smoke And Carbon Monoxide Detectors In Your Home? Yes MIGRATION.81463 68634 Information not available 04/20/2022 Are You Passively Exposed To Smoke? No MIGRATION.82857 75315 Information not available 04/20/2022 How Much Tobacco Do You Smoke? No MIGRATION.73522 52819 Information not available 04/20/2022 Do You Use Sunscreen Routinely? Yes MIGRATION.88448 60572 Information not available 04/20/2022 Have You Recently Traveled Abroad? No MIGRATION.58650 54854 Information not available 04/20/2022 Do You Have Difficulty Walking Or Climbing Stairs? No Running Into [employer] msy Pt Stated MIGRATION.29610 96556 Information not available 04/20/2022 Do You Have Any Dietary Restrictions? No Information not available 04/15/2024 Sex: Unknown Functional Status Question Answer Note LastModified by [employer] ion Details LastModified Time Do you or have you ever used smokeless tobacco? Never used smokeless tobacco MIGRATION.94311 36744 Information not available 04/20/2022 Are you currently employed? No Information not available 04/15/2024 Have you been exposed to chemicals or toxins? No not that aware of Information not available 04/15/2024 Do you have transportation difficulties? No MIGRATION.40280 72238 Information not available 04/20/2022 Are you able to care for yourself? Yes MIGRATION.38363 62269 Information not available 04/20/2022 Do you have difficulty dressing or bathing? No MIGRATION.90975 66557 Information not available 04/20/2022 Do you or have you ever used e-cigarettes or vape? Never used electronic cigarettes MIGRATION.38334 64067 Information not available 04/20/2022 What is your exercise level? None MIGRATION.68192 94378 Information not available 04/20/2022 Do you use any illicit or recreational drugs? No MIGRATION.22266 26585 Information not available 04/20/2022 Do you or have you ever used any other forms of tobacco or nicotine? Yes vape 0 nicotine MIGRATION.54346 96431 Information not available 04/20/2022 What is your level of alcohol consumption? None MIGRATION.74096 37621 Information not available 04/20/2022 Are you able to walk? YESWOREST MIGRATION.70764 42812 Information not available 04/20/2022 Do you have difficulty doing errands alone? No MIGRATION.26309 64352 Information not available 04/20/2022 What is your occupation? retired MIGRATION.20586 51421 Information not available 04/20/2022 Mental Status Question Answer Note LastModified by Organizat ion Details LastModified Time Do you feel stressed (tense, restless, nervous, or anxious, or unable to sleep at night)? [id number] MIGRATION.35034851 Information not available 04/20/2022 Do you have difficulty concentrating, remembering or making decisions? No MIGRATION.59424600 Information not available 04/20/2022 Family History Relationship [...] PF 3 completed Ce Hector RN null, [facility] 12/08/2022 11:49:45 COVID-19, mRNA, LNP-S, PF, shoaib-sucrose, 30 mcg/0.3 mL 3 completed Ce Hector RN null, [facility] 12/08/2022 11:50:25 RSV, recombinant, protein subunit RSVpreF, adjuvant reconstituted, 0.5 mL, PF 3 completed Ce Hector RN null, [facility] 01/09/2023 08:50:20 COVID-19, mRNA, LNP-S, PF, shoaib-sucrose, 30 mcg/0.3 mL 4 completed Bailee Perez RN null, [facility] 11/24/2023 08:40:45 Influenza, high-dose, trivalent, PF 4 completed Bailee Perez RN null, [facility] 11/24/2023 08:45:19 Influenza, split virus, trivalent, preservative 3 completed Melany Ruano CAMERA SUPERVISOR [facility] 09/01/2022 11:26:16 Influenza, split virus, trivalent, PF 3 completed Melany Ruano CMA null, [facility] 09/01/2022 11:26:16 Influenza, high-dose, quadrivalent, PF 2 completed Melany Ru[facility] C[facility] 09/01/2022 11:26:16 COVID-19, mRNA, LNP-S, bivalent, PF, 30 mcg/0.3 mL dose 2 completed [facility]/01/2022 11:26:16 Hep A-Hep B 2 completed Melany Ruano CMA [facility] 09/01/2022 11:26:16 Influenza, split virus, trivalent, preservative 3 completed Not Available [facility] 04/20/2022 01:01:48 Influenza, high-dose, quadrivalent, PF 1 completed Not Available [facility] 04/20/2022 01:01:49 pneumococcal polysaccharide PPV23 0 completed Not Available [facility] 04/20/2022 01:01:49 Pneumococcal conjugate PCV 13 8 completed Not Available [facility] 04/20/2022 01:01:49 Influenza, split virus, quadrivalent, PF 7 completed Not Available [facility] 04/20/2022 01:01:49 Influenza, split virus, quadrivalent, PF 8 completed Not Available [facility] 04/20/2022 01:01:49 Tdap 4 completed Not Available [facility] 04/20/2022 01:01:49 Tdap completed Katelyn Pearson RN [facility], [facility] 10/24/2023 09:34:20 Past Encounters Encounter ID Performer Location Encounter Start Date Encounter Closed Date Diagnosis/Indication Diagnosis SNOMED-CT Code Diagnosis ICD10 Code Diagnosis Note [id number] Laura Grider MD [facility] [place] [address] [place] [address] 04/28/2020 00:00:00 05/19/2020 18:02:06 [id number] Laura Grider MD [facility] [place] [address] [place] [address] 08/05/2020 00:00:00 08/19/2020 10:29:43 [id number] Laura Grider MD [facility] [place] [address] [place] [address] 11/10/2020 00:00:00 11/10/2020 12:10:22 [id number] Laura Grider MD [facility] [place] [address] [place] [address] 01/21/2021 00:00:00 02/15/2021 20:18:01 [id number] Rony Steele MD [facility] [address] [address] 02/01/2021 00:00:00 02/01/2021 09:50:16 [id number] Laura Grider MD [facility] Primary [facility] [place] [address] [place] [address] 03/15/2021 00:00:00 03/15/2021 11:19:29 [id number] Laura Grider MD [facility] Primary [facility] [place] [address] [place] [address] 04/21/2021 00:00:00 04/21/2021 09:50:14 [id number] Laura Grider MD [facility] Primary [facility] [place] [address] [place] [address] 04/27/2021 00:00:00 04/27/2021 12:50:56 [id number] Laura Grider MD [facility] [place] [address] [place] [address] 05/25/2021 00:00:00 05/25/2021 09:37:56 [id number] Laura Grider MD [facility] [place] [address] [place] [address] 06/24/2021 00:00:00 06/24/2021 09:20:45 [id number] SHARA Acosta [facility] [place] [address] [place] [address] 09/20/2021 00:00:00 09/20/2021 09:44:35 [id number] Rony Porter MD [facility] [address] [place] [address] 09/30/2021 00:00:00 09/30/2021 11:32:16 [id number] Laura Grider MD [facility] [place] [address] [place] [address] 10/06/2021 00:00:00 10/06/2021 09:00:46 [id number] Laura Grider MD [facility] [place] [address] [place] [address] [address] [place] [address] 12/13/2021 00:00:00 12/20/2021 16:32:54 [id number] SHARA Acosta [facility] [place] [address] [place] [address] 12/14/2021 00:00:00 12/14/2021 09:15:49 [id number] SHARA Acosta [facility] [place] [address] [place] [address] 12/28/2021 00:00:00 12/28/2021 09:28:37 [id number] SHARA Acosta [facility] [place] [address] [place] [address] [address] [place] [address] 01/05/2022 00:00:00 01/05/2022 11:11:29 [id number] Laura Grider MD [facility] [place] [address] [place] [address] [address] [place] [address] 02/09/2022 00:00:00 02/18/2022 10:23:37 [id number] SHARA Acosta [facility] [place] [address] [place] [address] [address] [place] [address] 03/22/2022 00:00:00 03/22/2022 09:27:18 [id number] Ronny Fulton MD [facility] [address] [address] 04/05/2022 00:00:00 09/01/2022 12:31:55 [id number] Laura Grider MD [facility] [address] [place] [address] [address] [place] [address] 06/27/2022 09:30:47 06/27/2022 10:24:51 Attention deficit hyperactivity disorder 803459369 F90.9 stable, refill givenPt understand s this medication has risk for abuse/depe ndence and agrees to take it only as prescribed and to guard from loss/theft Essential hypertension 45339600 I10 Pain of ri ght shoulder joint 6688261493 7224574 M25.511 consent form signedrepe at injection performedp t tolerated well and was instructed to call if any s/s infection or worsening pain [id number] Laura Grider MD [facility] [place] [address] [place] [address] [address] [place] [address] 07/19/2022 10:05:37 07/19/2022 11:27:58 Tear of skin 819919669 T14.8XXA healing wellwill treat with abx given her diabetes and the size of the woundsoap and water daily, avoid pools, hot tubs, recreation al water until healedkeep moist and covered during the day, ok to leave open at nightf/u prn [id number] Laura Grider MD [facility] Primary Care [address] [place] [address] 09/01/2022 11:09:07 09/01/2022 11:52:37 Pain of right shoulder joint [id number] 5492416 M25.511 Consent form signed, repeat injection performed. Pt tolerated well and was instructed to call if any s/s infection or worsening pain.Due to needing injection again within 3 months, I have advised to f/u with ortho if they continue to wear off quicker and quicker. [id number] Laura Grider MD [facility] Primary Care [address] [place] [address] 10/10/2022 09:38:55 10/10/2022 10:03:58 Chronic ulcerative proctitis 59378327 K51.[address] Ross d steroid suppositor yNow on mesalamine Diabetes mellitus 735462 09 E11.[address] Neal Essential hypertension 55941271 I10 Fatigue 78117568 R53.83 D64.9 Pain of sh oulder region 54132400 M25.519 refill given Vitamin D deficiency 347 34783 E55.9 Hyperlipidemia 17198121 E78.5 [id number] Laura Grider MD [facility] Primary Care [address] [place] [address] 10/18/2022 14:01:58 10/18/2022 14:43:19 Fever 961704608 R50.9 check UAlabs drawn earlier this AMlikely viral syndromeca ll if no improvemen t or sooner if neededsupp ortive care [id number] Laura Grider MD [facility] Primary Care [address] [place] [address] 10/27/2022 10:31:31 10/27/2022 13:27:01 Cough 79944397 R05.9 cxr showed no acute issuesneg covid testcheck labs including d-dimerpt with persistent fatigue, cough, feverisho2 sat is consistent with her baseline, she is mildly tachycardi cpush fluids, rest, [facility] givenCT angiogram chest if d-dimer elevatedca ll/return if no improvemen t in 1-2 days or sooner if neededrevi ewed s/s that warrant urgent/bobby rgent eval in meantime [id number] Laura Grider MD [facility] Primary Care [address] [place] [address] 12/20/2022 08:55:59 12/20/2022 09:43:21 Major depressive disorder 108647938 F32.9 Not in good controlcon tinue pristiq 100 mg dailyconti nue adderall 20 mg tidd/c aripiprazo letrial of vraylar 1.5 mg daily x 2 weeks then increase to 3 mg dailyremon potential med s/ef/u in 4 weeks or sooner if needed Pain of ri ght shoulder joint 5746525600 5109837 M25.511 Prednisone taperheat, gentle stretching f/u in 2 weeks for injection if needed [id number] Laura Grider MD [facility] Primary Care [address] [place] [address] 01/04/2023 16:58:47 01/05/2023 17:19:21 Pain of right shoulder joint 8562638014 4444403 M25.511 injection today, tolerated wellpost injection instructio ns givencan return for repeat injection in 3 months if needed [id number] Laura Grider MD [facility] Primary Care [address] [place] [address] 01/18/2023 09:29:18 01/18/2023 09:53:52 Major depressive disorder 569708655 F32.9 Not in good controlcon tinue pristiq 100 mg dailyconti nue adderall 20 mg tidd/c aripiprazo letrial of vraylar 1.5 mg daily x 2 weeks then increase to 3 mg dailyrevie wed potential med s/ef/u in 4 weeks or sooner if needed update 01/18/23: increase vraylar 4.5 mg dailyf/u in 4 weeks Iron defic iency anemia 76795986 D50.9 cannot tolerate oral ironsees GIpersiste nt iron deficiency hematology referral given [id number] Laura Grider MD [facility] Primary Care [facility] [place] [address] [place] [address] 03/08/2023 08:40:16 03/08/2023 09:22:14 Major depressive disorder 647147198 F32.9 Not in good controlcon tinue pristiq [...] 4.5 mg daily Iron defic iency anemia 32240126 D50.9 cannot tolerate oral ironsees GIpersiste nt iron deficiency update 03/08/23: tolerating mvirecheck labs [id number] Laura Grider MD [facility] [address] [place] [address] 04/05/2023 16:39:50 04/05/2023 17:56:08 Pain of right shoulder joint 3287283287 1011648 M25.511 injection today, tolerated wellpost injection instructio ns givencan return for repeat injection in 3 months if needed [id number] Laura Grider MD [facility] Primary Care [facility] [place] [address] [place] [address] 06/20/2023 16:31:44 06/20/2023 17:21:44 Transition of care 1311194981 105 Z75.8 Sepsis due to urinary tract infection 156215946 N39.0 reviewed notescardi ology does not think there was a cardiac eventurina ry sepsis, repeat labs [id number] Laura Grider MD [facility] Primary Care [address] [place] [address] 07/05/2023 08:10:44 07/05/2023 09:18:17 Laceration of right lower leg 6865697918 0800370 S81.811A keep elevatedso ap and water dailycall Monday if no improvemen t Pain of ri ght shoulder joint 6761776701 2087031 M25.511 injection today, tolerated wellpost injection instructio ns givencan return for repeat injection in 3 months if needed [id number] MARION Orellana [facility] Primary Care [address] [place] [address] 07/20/2023 14:30:03 07/20/2023 14:41:46 [id number] MARION Oerllana [facility] Primary Care [address] [address] 09/28/2023 09:30:51 09/28/2023 10:15:58 Dysuria 80296818 R30.0 urine dip positive for nitrites/l eukocytes Thyroid di sorder screening 079202587 Z13.29 Iron deficiency 54755074 E61.1 Anemia screening 0368682 07 Z13.0 Vitamin D deficiency 347 03339 E55.9 Long-term drug therapy 998696427 Z79.899 Pt denies any lending, selling, or borrowing of medication s. Denies any cp, sob, palpitatio ns, or unusual weight loss.Revie wed controlled substance agreement requiremen ts. Refill given.[place] PDMP checked today. [id number] MARION Orellana [facility] Primary Care [address] [place] [address] 10/24/2023 08:49:31 10/24/2023 09:20:46 Administration of diphtheria, pertussis, and tetanus vaccine 990830799 Z23 will be having addition to the family within a monthtdap given Dysuria 32442310 R30.0 Attention deficit hyperactivity disorder 999618449 F90.9 [id number] SHARA Beck [facility] Primary [place] [address] [place] [address] 11/09/2023 08:55:46 11/09/2023 09:16:23 [id number] MARION Orellana [facility] Primary [facility] [place] [address] [place] [address] 11/23/2023 13:51:40 11/23/2023 15:16:42 Chronic obstructive pulmonary disease 28709035 J44.9 noting increased dyspneauna ble to wear cpap last nighttrial trelegy Seasonal allergy 2359049 04 J30.2 Cobalamin deficiency 190 803166 E53.8 Pain of ri ght shoulder joint 7219740208 2519526 M25.511 pt requesting shoulder injectiond eclines oral steroidsor tho referral giventrial lidocaine patches Referral needed [id number] 9 Z76.89 [id number] Flaco Denise MD [facility] [address] [place] [address] 12/13/2023 08:53:32 12/13/2023 10:40:27 Bilateral shoulder joint pain 4244049106 2923388 M25.511 M25.104 [id number] Flaco Denise MD [facility] [place] [address] [place] [address] 01/03/2024 09:22:30 01/03/2024 11:17:36 Pain of left shoulder joint 5397737014 0483206 M25.917 [id number] MARION Sterling [facility] Primary [facility] [place] [address] [place] [address] 01/15/2024 14:31:36 01/15/2024 15:59:41 [id number] MARION Sterling [facility] Primary Care [place] [address] [place] [address] 02/29/2024 08:53:08 02/29/2024 09:52:30 Obstructive sleep apnea syndrome 08915253 G47.33 Diabetes mellitus 971545 09 E11.9 Decrease Ozempic to 1mg every week.Disco ntinue Farxiga while we wait for update A1c. [facility] 47946982 M25.[address] refill: 01/29/24UD S UTDlast appt: 02/29/24Pa robin will follow up in 3 months, sooner if needed. [id number] Ronny Fulton MD S_[facility] [address] [address] 03/07/2024 10:00:47 03/18/2024 13:37:06 Dyspnea on exertion 27592128 R06.09 R05.9 T78.40XA D89.9 [id number] Ronny Fulton MD [facility] [address] [address] 04/15/2024 11:00:02 04/15/2024 12:12:19 Dyspnea on exertion 60636438 R06.09 R05.9 T78.40XA D89.9 Obstructiv e sleep apnea syndrome 65063318 G47.33 [id number] MARION Sterling [facility] Primary Care [address] [place] [address] 04/17/2024 09:14:42 04/17/2024 10:14:46 Diabetes mellitus 91410556 E11.9 Sees Endocrinol ogy Anxiety 36354847 F41.9 Will refill meds as listed below. Patient has not had meds filled since June as she uses them very sparingly. Patient reports the most she takes in one day is two tablets and that is very rare. [facility] 92217153 M25.519 Patient is scheduled for left shoulder replacemen t on 05/20/24 Vitamin B1 2 deficiency (non anemic) 67240716 E53.8 Pre-surger y evaluation 810196903 Z01.428 [id number] MARION Sterling [facility] Primary Care [address] [place] [address] 06/17/2024 14:18:39 06/17/2024 14:49:25 Health Concerns Section Related Observation LastModified by Organization Detai ls LastModified Time None Recorded Concern Status LastModified by Organization Details LastModified Time None Recorded Advance Directives Directive Y: Payers Encounter Date Sequence Insurance Name Policy Number Policy Benoit Covered Member ID Benoit Member ID Guarantor Name 02/29/2024 1 [employer] (MEDICARE REPLACEMENT/ ADVANTAGE - PPO) [id number] Yaneth Duarte [id number] Yaneth Duarte 03/07/2024 1 [employer] (MEDICARE REPLACEMENT/ ADVANTAGE - PPO) [id number] Yaneth Duarte [id number] Yaneth Duarte 04/15/2024 1 [employer] (MEDICARE REPLACEMENT/ ADVANTAGE - PPO) [id number] Yaneth Duarte [id number] Yaneth Duarte 04/17/2024 1 [employer] (MEDICARE REPLACEMENT/ ADVANTAGE - PPO) [id number] Yaneth Duarte [id number] Yaneth Duarte 06/17/2024 1 [employer] (MEDICARE REPLACEMENT/ ADVANTAGE - PPO) [id number] Yaneth Duarte [id number] Yaneth Duarte Notes Date Note Type Note Provider Name and Address Organization Details Recorded Time 02/29/2024 text/html Patient is a 68 year old female that presents to the office for hospital follow up. Patient reports on February 08 she woke up on the floor and didn't know how she got there, went to [facility] by EMS, was admitted for 4 days. [...] not fitting properly. Patient's son reports that wind turbine erector in hospital does not think the episode was cardiac related but rather related to hypoxia from not having her CPAP on. Patient reports she has been trying to contact [facility] to schedule an appt for a new [...] has not been helpful. MARION Sterling [address], [facility] [address], [place], [address], [facility] [employer] 02/29/2024 10:32:38 03/07/2024 text/html Primary care/Ref erring provider: MARION Sterling CC: I was admitted to [facility] from 02/10/24-02/13/24 for NSTEMI and CHF. I [...] lying downAlleviating factors: rest Modified [employer] [place] (mMRC) Dyspnea Scale - Grade 2Grade 0 [...] noEdema: no Environmental exposures:Nicotine smoke: 1 ppd 4946-0106 = 34 pack years; vaping without nicotinePaint: noDye: noDust mites: yesMold: noDamp basement: noWood burning stove: noAnimal dander: dogCockroaches: noPollen: yesArsenic: noAsbestos: noBeryllium: noCadmium: noChromium: noCoal smoke: noDiesel fumes: noNickel: noSilica: noSoot: no During the [facility] home sleep study on 06/23/21, AHI = 9.During the [facility] titration sleep study on 08/17/21, [...] moderate chance of dozing. Ronny Fulton MD [address] [place] [address], [facility] [address], [place], [address], [place] [facility] 03/07/2024 11:10:22 04/15/2024 text/html [...] lying downAlleviating factors: rest Modified [employer] [place] (mMRC) Dyspnea Scale - Grade 2Grade 0 [...] noEdema: no Environmental exposures:Nicotine smoke: 1 ppd 5335-0067 = 34 pack years; vaping without nicotine until 02/2024Paint: noDye: noDust mites: yesMold: noDamp basement: noWood burning stove: noAnimal dander: dogCockroaches: noPollen: yesArsenic: noAsbestos: noBeryllium: noCadmium: noChromium: noCoal smoke: noDiesel fumes: noNickel: noSilica: noSoot: no CC: The CPAP is blowing hard and the leak is coming out the side of my mouth. During the [facility] home sleep study on 06/23/21, [...] dozing. Ronny Fulton MD [address], [facility] [address], [place], [address], [employer] 04/15/2024 11:57:32 04/17/2024 text/html Patient is a 68 year old female that presents to the office for follow up. Patient reports she is scheduled for left shoulder replacement on 05/20/24 and needs surgery clearance. Patient reports following up with Senior Storage Administrator in February--had a cardiac cath completed and was cleared for surgery. Patient followed up with Dr. Fulton earlier this week and was also cleared for surgery. Patient saw Dr. Neal (safety deposit boxes custodian) and was put back on Farxiga and Ozempic was increased to 2mg weekly. MARION Sterling [address], [address], [place], [address], [employer] 04/20/2024 19:26:20 OBGyn Episode No OBEpisode recorded.
--- OUTSIDE RECORDS SUMMARY | 2024-07-30 11:58 | XMS_ITS | Continuity of Care Document ---
Author Organization [facility] Address [address] [place] [address] Phone Care Team Providers Care Health Communications Specialist Name Role Phone John OHARA MD, Kimani [...] Vitamin B-12 50 mcg tablet - Active cephalexin 500 mg tablet take 1 tablet by oral route every 6 hours (Four times per day) for 10 days - No Longer Active Procedures Procedure Date Arc 2 0 Sling [place] Arm Sling X-ray exam shoulder complete, minimum [...] Date Provider Providers Copied on Encounter [facility], [address] [place] [address], [id number], [place] [phone] [facility] [facility] No Information John Harman. [address] [place] [address], [id number] , [place]. tel:[phone] [facility] [facility], [address] [place] [address], [id number], [place] [phone] [facility] [facility] Pain in left shoulder John Harman. [address] [place] [address], [id number] , [place]. tel:[phone] Referring Provider: Kimani Gleason, [address] [place] [address], [place], [address] . tel:[phone] [facility] [facility], [address] [place] [address], [id number], [place] tel:[phone] [facility] [facility] left shoulder pain (chief complaint) Presence of left artificial shoulder joint [facility] [employer] DIRECT[employer] Rola . [address] [place] [address], [place], [place], [id number] , [place]. tel:[phone] Referring Provider: Kimani Gleason, [address] [place] [address], [place], [address] . tel:[phone] [facility] [employer] [facility], [address] [place] [address], [id number], [place] tel:[phone] [facility] shoulder (chief complaint) Presence of left artificial shoulder joint Apr- 5 Steward [employer] SERVICES DIRECTOR Rola . [address] [facility], [place] [address], [place], [place], [id number] , [place]. tel:[phone] Referring Provider: Rola Xiao, [address], [place], [address] . tel:[phone] [facility], [address] [address], [place], [place], [id number], [place] [phone] [facility] No Information Apr-3 5 John Harman. [address] [address], [place], [place], [id number] , [place]. tel:[phone] Referring Provider: Kimani Gleason, [address] [address], [place], [address] . tel:[phone] [facility], [address] [address], [place], [place], [id number], [place] [phone] [facility] Pain in left shoulder Apr- 5 Len DIETARY SERVICES DIRECTOR Rola . [address] [facility], [place] [address], [place], [place], [id number] , [place]. tel:[phone] [place] visit[place] [facility], [address] [address], [place], [place], [id number], [place] tel:[phone] [facility] left shoulder pain (chief complaint) Complete rotatr-cuff tear/ruptr of left shoulder, not traumaOther specified arthritis, left shoulderBicipit al tendinitis, left shoulder Apr- 5 John Harman. [address] [facility], [place] [address], [place], [place], [id number] , [place]. tel:[phone] Referring Provider: Kimani Gleason, [address] [facility], [place], [address] . tel:[phone] Office[place]pa [place]ient visit[place]est, [facility], [address], [place], [place], [id number], [place] tel:[phone] [facility] [employer] [facility] left shoulder pain (chief complaint) Pain in left shoulderComplet e rotatr-cuff tear/ruptr of left shoulder, not traumaBicipital tendinitis, left shoulderOther specified arthritis, left shoulder [address] [facility], [address], [place], [place], [id number] , [place]. tel:[phone] Referring Provider: Kimani Lopez MD T, [address] [place] [address] [address], [place], [address] . tel:[phone] Office[facility]outpa [facility]ient visit,[facility], [address] [facility] [address], [place], [place], [id number], [place] [phone] [facility] [employer] [facility] left shoulder pain (chief complaint) right shoulder pain (chief complaint) Pain in left shoulder [address] [facility], [address], [place], [place], [id number] , [place]. tel: [phone] Family History Family Member Type Diagnosis Age At Onset Mother Problem (finding) Cancer, unknown Mother Problem (finding) Kidney Disease Payers Payer name Insurance type Covered republican ID Authoriza tidane(s) [employer] CI [id number] Social History Type Description Quantity Date Captured [...] hospital. We discussed surgery will be at [facility] and the anticipated length of stay would likely be overnight due to her [place]. We discussed the need for a surgical assistant at the time of surgery, my nurse [...]
--- OUTSIDE RECORDS SUMMARY | 2024-07-30 11:58 | XMS_ITS | Clinical Summary ---
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 [...] Department Care Team Description 07/09/2024 ACO Quality [facility] Accountable Care Organization [address] [place] [address] Janet Fabian MA 06/19/2024 2:30 PM CDT Office Visit [facility] Cardiology [address] [place] [address] Tomy Odonnell MD Chronic heart failure with preserved ejection fraction (HCC) (Primary Dx); Nonobstructive atherosclerosis of coronary artery; Primary hypertension; Mixed hyperlipidemia 05/20/2024 11:45 AM CDT - 05/20/2024 2:30 PM CDT Surgery [facility] Operating Room [address] [place] [phone] Kimani Lopez MD Left Reverse Total Shoulder Arthroplasty, Biceps Tendodesis 05/20/2024 11:13 AM CDT Anesthesia Event [facility] Operating Room [address] [place] [phone] Pinky Martinez DO Helmbrecht, Christine Sarita, NP 05/20/2024 9:04 AM CDT - 05/21/2024 1:14 PM CDT Hospital Encounter [address] [phone] Kimani Lopez MD Discharge Disposition: Discharge to home or self care 05/02/2024 1:15 PM CDT Pre-Admission Testing [facility] Pre Anesthesia Testing [address] [place] [phone] Preop testing (Primary Dx) from Last 3 Months Immunizations Immunization Administration Dates Next Due COVID-19 mRNA (SageCloud) 0.3 m L (30 mcg) vaccine (12 years and up) 12/08/2022 Hep A / Hep B 05/31/2021 Influenza, Quadrivalent, Karina l Culture-based MDCK, Preservative Free, Antibiotic Free, Intramuscular 11/20/2018 Influenza, Quadrivalent, Hig h Dose, Preservative Free, Intrr 12/08/2022,11/23/2021,11/10/2020 Influenza, Quadrivalent, Spl it, Preservative Free, Intramuscular 11/13/2019,11/09/2017,12/20/2016 Influenza, Trivalent, IM (MDV) 12/20/2012,2012 Influenza, Trivalent, Preser vative Free, Intramuscular 12/17/2012 Influenza, Unspecified 11/21/2023,02/20/2023,02/2022 Mytonomy Sars-Cov-2 Bivalent V accination (12+ YRS) 11/23/2021 [...] on file Legal Sex 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 Gender Identity Not on file Sexual Orientation [...] A1C 11/02/2024 05/02/2024, 08/18/2023 eGFR 05/02/2025 05/02/2024, 0706/2023, 08/18/2023 Fall Risk Assessment 05/21/2025 05/21/2024, 08/18/19 [...] history exists Medical Devices Implanted Type Area Rn Practitioner Device Identifier Shelf Expiration Date Model / Serial / Lot [employer] Implant Pin Kit Glenoid Ar-9607s - [id number] Implanted:Qty: 1 on 05/20/2024 by Kimani Lopez MD at [facility] Left: Shoulder [employer] 02/20/2028 AR-9607S / / [id number] [employer] Arthrex Univers Revers 36mm Suture Cup Humeral Sterile Latex Free Rl-2532h-14cjj - [id number] Implanted:Qty: 1 on 05/20/2024 by Kimani Lopez MD at [facility] Left: Shoulder [employer] [id number] 01/19/2029 AR-9502F- 36CPC / / [id number] [employer] Univers Revers 36mm Shoulder +3mm Small Insert Humeral Sterile Ar-9503s-03 - [id number] Implanted:Qty: 1 on 05/20/2024 by Kimani Lopez MD at [facility] Left: Shoulder [employer] [id number] 08/19/2028 AR-9503S- 03 / / [id number] [employer] Baseplate 24mm 10 Deg Full Augment 2 Lateralized Ss-4141-4771-2s - [id number] Implanted:Qty: 1 on 05/20/2024 by Kimani Lopez MD at [facility] Left: Shoulder [employer] [id number] 01/19/2029 AR-9580-2 410-2S / / [id number] [employer] Univers Revers 25mm Modular Post Component Glenoid Porous Ar-9582-25 - [id number] Implanted:Qty: 1 on 05/20/2024 by Kimani Lopez MD at [facility] Left: Shoulder [employer] [id number] 08/19/2028 AR-9582-2 5 / / [id number] [employer] 36mm 24 Baseplate Taper Sphere Glenoid Gg-4332-3602 - [id number] Implanted:Qty: 1 on 05/20/2024 by Kimani Lopez MD at [facility] Left: Shoulder [employer] [id number] 11/19/2028 AR-9564-2 436 / / [id number] [employer] 4.5mm 32mm Peripheral Screw Bone Sterile Yg-0234-18dk - [id number] Implanted:Qty: 1 on 05/20/2024 by Kimani Lopez MD at [facility] Left: Shoulder [employer] [id number] 04/19/2028 AR-9562-3 2NL / / [id number] [employer] 4.5mm 32mm Peripheral Screw Bone Sterile Vm-4862-77hz - [id number] Implanted:Qty: 1 on 05/20/2024 by Kimani Lopez MD at [facility] Left: Shoulder [employer] [id number] 10/20/2028 AR-9562-3 2NL / / [id number] [employer] Screw Glenoid Locking Reverse Univers Revers 5.5x20mm Titanium Ar-9563-20 - [id number] Implanted:Qty: 1 on 05/20/2024 by Kimani Lopez MD at [facility] Left: Shoulder [employer] [id number] 09/19/2028 AR-9563-2 0 / / [id number] [employer] Screw Glenoid Locking Reverse Univers Revers 5.5x20mm Titanium Ar-9563-20 - [id number] Implanted:Qty: 1 on 05/20/2024 by Kimani Lopez MD at [facility] Left: Shoulder [employer] [id number] 09/19/2028 AR-9563-2 0 / / [id number] [employer] Univers Revers Shoulder 6 Stem Humeral Sterile Ar-9501-06s - [id number] Implanted:Qty: 1 on 05/20/2024 by Kimani Lopez MD at [facility] Left: Shoulder [employer] [id number] 09/19/2028 AR-9501-0 6S / / [id number] Procedures Procedure Name Priority Date/Time Associated Diagnosis Comments POCT LIPID PANEL Routine 06/19/2024 2:28 PM CDT Mixed hyperlipidemia POCT GLUCOSE DEVICE Routine 05/21/2024 1 1:37 AM CDT POCT GLUCOSE DEVICE Routine 05/21/2024 5 :38 AM CDT POCT GLUCOSE DEVICE Routine 05/20/2024 4 :31 PM CDT POCT GLUCOSE DEVICE Routine 05/20/2024 2 :48 PM CDT POCT GLUCOSE DEVICE Routine 05/20/2024 1 :21 PM CDT KS AN PROCEDURE PLACEHOLDER Routine 05/20/2024 11:46 AM CDT KS AN ELECTIVE ENDOTRACHEAL AIRWAY Routine 05/20/2024 11:46 AM CDT ARTHROPLASTY SHOULDER - REVERSE TOTAL 05/20/2024 11:13 AM CDT Nontraumatic complete tear of left rotator cuff Bicipital tendinitis of left shoulder Climacteric arthritis, shoulder region, left KS AN PROCEDURE PLACEHOLDER Routine 05/20/2024 10:27 AM CDT POCT GLUCOSE DEVICE Routine 05/20/2024 1 0:04 AM CDT PAIN BLOCK Routine 05/20/2024 9:25 AM CDT EGFR Routine 05/02/2024 2:54 PM CDT Preop testing DIFFERENTIAL AUTO Routine 05/02/2024 2:5 4 PM CDT Preop testing COMPREHENSIVE METABOLIC PANEL Routine 05/02/2024 2:54 PM CDT Preop testing CBC WITH AUTO DIFFERENTIAL Routine 05/02/2024 2:54 PM CDT Preop testing HEMOGLOBIN A1C Routine 05/02/2024 2:54 PM CDT Preop testing HEPATITIS C ANTIBODY Routine 08/18/2023 11:21 AM [...] Capillary blood 06/19/2024 2 :28 PM CDT [facility] Slava Odonnell MD POINT OF CARE TEST ELISABETH SANTO Final Result * POCT glucose (05/21/2024 11:37 AM CDT) Glucose, POC 112 70 - 199 mg/dL Comment: For Glucose values <35 mg/dl when Hematocrit is >60 mg/dl,the test may not accurately detect significant hypoglycemia,and testing in the Laboratory should be considered if clinically indicated. POC Performer [id number] [facility] Blood 05/21/2024 11:3 7 AM CDT 05/21/2024 11:37 AM CDT Kimani Lopez MD LAB POCT ORDERABLES - DEVIC E Final Result Performing Organization Address [facility] Co de Phone Number [facility] [address] [facility] [place] [address] * POCT glucose (05/21/2024 5:38 AM CDT) Glucose, POC 133 70 - 199 mg/dL Comment: For Glucose values <35 mg/dl when Hematocrit is >60 mg/dl,the test may not accurately detect significant hypoglycemia,and testing in the Laboratory should be considered if clinically indicated. POC Performer [id number] [facility] Blood 05/21/2024 5:38 AM CDT 05/21/2024 5:38 AM CDT Kimani Lopez MD LAB POCT ORDERABLES - DEVIC E Final Result Performing Organization Address [facility] de Phone Number [facility] [address] [place] [address] * POCT glucose (05/20/2024 4:31 PM CDT) Glucose, POC 178 70 - 199 mg/dL Comment: For Glucose values <35 mg/dl when Hematocrit is >60 mg/dl,the test may not accurately detect significant hypoglycemia,and testing in the Laboratory should be considered if clinically indicated. POC Performer [id number] [facility] Blood 05/20/2024 4:31 PM CDT 05/20/2024 4:31 PM CDT Kimani Lopez MD LAB POCT ORDERABLES - DEVIC E Final Result Performing Organization Address [facility] Co de Phone Number [facility] [address] Department [place] [address] * POCT glucose (05/20/2024 2:48 PM CDT) Glucose, POC 137 70 - 199 mg/dL Comment: For Glucose values <35 mg/dl when Hematocrit is >60 mg/dl,the test may not accurately detect significant hypoglycemia,and testing in the Laboratory should be considered if clinically indicated. POC Performer [id number] [facility] Blood 05/20/2024 2:48 PM CDT 05/20/2024 2:48 PM CDT Kimani Lopez MD LAB POCT ORDERABLES - DEVIC E Final Result Performing Organization Address [facility] Co de Phone Number [facility] [address] [facility] [place] [employer] [place] [address] * POCT glucose (05/20/2024 1:21 PM CDT) Glucose, POC 125 70 - 199 mg/dL Comment: For Glucose values <35 mg/dl when Hematocrit is >60 mg/dl,the test may not accurately detect significant hypoglycemia,and testing in the Laboratory should be considered if clinically indicated. POC Performer [id number] [facility] Blood 05/20/2024 1:21 PM CDT 05/20/2024 1:21 PM CDT us Kimani Lopez MD LAB POCT ORDERABLES - DEVIC E Final Result [facility] [address] [facility] [place] [address] * KS AN ELECTIVE ENDOTRACHEAL AIRWAY, KS AN PROCEDURE PLACEHOLDER (05/20/2024 11:46 AM CDT) Narrative Lillie Rios CRNA - 05/20/2024 11:46 AM CDT Lillie Rios CRNA 05/20/2024 11:48 AM Airway Patient location: OR Urgency: elective Date/time: 05/20/2024 11:23 AM Indications for airway management: anesthesia Difficult airway: no Staff: Supervising provider: Pinky Martinez DO Placed by: IT SOFTWARE ENGINEER: Sadia Damon CRNA Emergent airway documentation: Risks [...] silk tape Number of attempts: 1 Pinky Matrinez DO ANESTHESIA ORDERABLES Final Result * KS AN PROCEDURE PLACEHOLDER (05/20/2024 10:27 AM CDT) [...] be considered if clinically indicated. POC Performer [id number] [facility] Blood 05/20/2024 10:0 4 AM CDT 05/20/2024 10:04 AM CDT us Kimani Lopez MD LAB POCT ORDERABLES - DEVIC E Final Result [facility] [address] [place] [address] * eGFR (05/02/2024 2:54 PM [...] CDT 05/02/2024 2:54 PM CDT Seema Medrano COPY CAMERA OPERATOR LAB BLOOD ORDERAB LES Final Result [facility] [address] [place] [address] * (ABNORMAL) Differential, auto (05/02/2024 2:54 PM CDT) Neutrophil abs 7.1(H) 1.5 - 6.5 K/cumm Imm gran abs 0.0 0.0 - 0.1 K/cumm [facility] Lymphocyte abs 3.3 0.8 - 3.3 K/cumm [facility] Monocyte abs 0.7 0.2 - 0.8 K/cumm [facility] Eosinophil abs 0.3 0.0 - 0.5 K/cumm [facility] Basophil abs 0.1 0.0 - 0.1 K/cumm [facility] Neutrophil pct 62.2 % [facility] Comment: Interpretive Data Percent cell count reference ranges are not reported, since discordance with absolute values may lead to misinterpretation of CBC data. Current Interpretive Data was last revised on 2017. Imm gran pct 0.3 % [facility] Comment: Interpretive Data Percent cell count reference ranges are not reported, since discordance with absolute values may lead to misinterpretation of CBC data. Current Interpretive Data was last revised on 2017. Lymphocyte pct 28.5 % [facility] Comment: Interpretive Data Percent cell count reference ranges are not reported, since discordance with absolute values may lead to misinterpretation of CBC data. Current Interpretive Data was last revised on 2017. Monocyte pct 6.1 % [facility] Comment: Interpretive Data Percent cell count reference ranges are not reported, since discordance with absolute values may lead to misinterpretation of CBC data. Current Interpretive Data was last revised on 2017. Eosinophil pct 2.5 % [facility] Comment: Interpretive Data Percent cell count reference ranges are not reported, since discordance with absolute values may lead to misinterpretation of CBC data. Current Interpretive Data was last revised on 2017. Basophil pct 0.4 % [facility] Comment: Interpretive Data Percent cell count reference ranges are not reported, since discordance with absolute values may lead to misinterpretation of CBC data. Current Interpretive Data was last revised on 2017. Blood 05/02/2024 2:54 PM CDT 05/02/2024 2:54 PM CDT Seema Medrano NP LAB BLOOD ORDERAB LES Final Result [facility] [address] [place] [address] * (ABNORMAL) CBC with auto differential (05/02/2024 2:54 PM CDT) WBC 11.4(H) 3.8 - 9.9 K/cumm Hgb 13.5 11.9 - 15.5 g/dL [facility] Hct 41.7 35.6 - 45.5 % [facility] Plt 176 150 - 400 K/cumm [facility] MPV 11.2 9.1 - 12.3 fL [facility] RBC 4.69 3.90 - 5.20 M/cumm [facility] MCV 88.9 81.3 - 96.4 fL [facility] MCH 28.8 27.1 - 33.3 pg [facility] MCHC 32.4 32.3 - 35.7 g/dL [facility] RDW CV 14.6 11.1 - 14.9 % [facility] RDW SD 46.5 35.7 - 48.1 fL [facility] NRBC abs 0.00 0.00 - 0.01 K/cumm [facility] Blood 05/02/2024 2:54 PM CDT 05/02/2024 2:54 PM CDT [facility] BLOOD ORDERAB LES Final Result Performing Organization Address [facility] Co de Phone Number [facility] [address] [facility] [place] [address] * (ABNORMAL) Hemoglobin A1c (05/02/2024 2:54 PM CDT) [facility] Hgb A1C 7.0(H) 4.0 - 5.6 % Estimated Average Glucose 154 mg/dL [facility] Comment: The ADA recommends reporting an estimated Average Glucose (eAG) with all Hemoglobin A1c results using the equation derived from a study of 507 normal and diabetic adults. Minority populations were underrepresented and children were not included. (Diabetes Care 31:9972-1471, 2008). The eAG is not equivalent to a fasting glucose. Blood 05/02/2024 2:54 PM CDT 05/02/2024 2:54 PM CDT Seema Allison KIM LAB BLOOD ORDERAB LES Final Result Performing Organization Address [facility] de Phone Number [facility] [address] [facility] [place] [address] * (ABNORMAL) Comprehensive metabolic panel (05/02/2024 2:54 PM CDT) [facility] Sodium 136 135 - 145 mmol/L Potassium, pl 4.0 3.3 - 4.9 mmol/L [facility] Chloride 100 97 - 110 mmol/L [facility] CO2 24 22 - 32 mmol/L [facility] Anion gap 12 2 - 15 mmol/L [facility] BUN 13 6 - 25 mg/dL [facility] Creatinine 0.51(L) 0.60 - 1.10 mg/dL [facility] Glucose 86 70 - 199 mg/dL [facility] Comment: Interpretive Data Fasting glucose [...] 2022. Calcium 9.5 8.5 - 10.3 mg/dL [facility] Bilirubin, total 0.3 0.1 - 1.2 mg/dL [facility] Protein, pl 7.3 6.5 - 8.5 g/dL [facility] Albumin 4.0 3.5 - 5.0 g/dL [facility] Alk phos 126 40 - 130 Units/L [facility] ALT 20 7 - 45 Units/L [facility] AST 22 10 - 45 Units/L [facility] Blood 05/02/2024 2:54 PM CDT 05/02/2024 2:54 PM CDT Seema Medrano COPY CAMERA OPERATOR LAB BLOOD ORDERAB LES Final Result [facility] [address] Department of Laboratories [place], [place] [id number] * Hepatitis C antibody Blood (08/18/2023 11:21 AM CDT) Pathologist [facility] Hep C Ab Nonreactive Nonreactive Comment: Interpretive [...] ORDER JEREMIAH Final Result Performing Organization Address [facility] [place] [address] [facility] [place] [address] * Albumin Creatinine Ratio, Urine (08/18/2023 11:21 [...] ORDERABLES Final Resul t Performing Organization Address [facility] [place] [address] [address] [place] [address] * DIABETES EYE EXAM (10/31/2022 9:39 AM CDT) Historical Provider HEALTH MAINTENANCE Final Result * COLONOSCOPY (06/30/2022 12:57 PM CDT) Historical Provider HEALTH MAINTENANCE Final Result from Last 3 Months or Most Recently Relevant to Health Maintenance Insurance AETNA MEDICARE AETNA MEDICARE Advance Directives For more information, please contact: [phone] * Full Code (Latest Code Status on File) Date Activated Date Inactivated Comments 05/20/2024 2:44 PM 05/21/2024 5:20 PM Care Teams Functional Tester Typewriters Relationship Specialty Start Date End Date Jess Lima NP [address] [place] [address] [place] [address] PCP - General Family Medicine 04/10/24 Cammie Woodruff OD [address] [place] [address] Optometry 03/13/19 Osmany Foster MD [address] [place] [address] Referring Physician Gastroenterology 08/18/23 [facility] Endocrinology 08/18/23
--- OUTSIDE RECORDS SUMMARY | 2024-07-30 11:58 | XMS_ITS | Referral Summary ---
Author Organization [facility] Address [address] [place] [address] Care Team Providers Care Hem Inspector Name Role Phone Cammie Woodruff Carolina OD Unavailable Osmany Foster MD Unavailable [phone] Jess Lima NP Primary Care Provider Encounters Date Type Department Care Team Description 07/09/2024 ACO Quality [facility] Accountable Care Organization [address] [place] [id number] Janet Fabian MA 06/19/2024 2:30 PM CDT Office Visit [facility] Medical Group Cardiology [address] [place] [address] Tomy Odonnell MD Chronic heart failure with preserved ejection fraction (HCC) (Primary Dx); Nonobstructive atherosclerosis of coronary artery; Primary hypertension; Mixed hyperlipidemia 05/20/2024 9:04 AM CDT - 05/21/2024 1:14 PM CDT Hospital Encounter [address] [phone] Kimani Lopez MD Discharge Disposition: Discharge to home or self care 05/20/2024 11:45 AM CDT - 05/20/2024 2:30 PM CDT Surgery [facility] Operating Room [address] [place] [phone] Kimani Lopez MD Left Reverse Total Shoulder Arthroplasty, Biceps Tendodesis 05/20/2024 11:13 AM CDT Anesthesia Event [facility] Operating Room [address] [place] [phone] Pinky Martinez DO Helmbrecht, Christine Sarita, NP 05/02/2024 1:15 PM CDT Pre-Admission Testing [facility] Pre Anesthesia Testing [address] [place] [phone] Preop testing (Primary Dx) from Last 3 Months Allergies Active Allergy [...] months Active blood-glucose meter,continuou s (Dexcom G7 Floorleader) misc Activ e ALPRAZolam (XANAX) 1 mg [...] (12/13/2018): Added automatically from request for surgery [id number] Allergic rhinitis 08/22/2018 Attention deficit hyperactiv ity [...] AM CDT): Patient states she follows with [facility] [place], patient unable to recall the provider's name. [...] Immunization Administration Dates Next Due COVID-19 mRNA (Bandhappy) 0.3 m L (30 mcg) vaccine (12 years and up) 12/08/2022 Hep A / Hep B 05/31/2021 Influenza, Quadrivalent, Karina l Culture-based MDCK, Preservative Free, Antibiotic Free, Intramuscular 11/20/2018 Influenza, Quadrivalent, Hig h Dose, Preservative Free, Intrr 12/08/2022,11/23/2021,11/10/2020 Influenza, Quadrivalent, Spl it, Preservative Free, Intramuscular 11/13/2019,11/09/2017,12/20/2016 Influenza, Trivalent, IM (MDV) 12/20/2012,2012 Influenza, Trivalent, Preser vative Free, Intramuscular 12/17/2012 Influenza, Unspecified 11/21/2023,02/20/2023,02/2022 [address] Sars-Cov-2 Bivalent V accination (12+ YRS) 11/23/2021 [...] on file Legal 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 Gender Identity Not on file Sexual Orientation [...] on file Medical Devices Implanted Type Area Divorce Lawyer Device Identifier Shelf Expiration Date Model / Serial / Lot [employer] Implant Pin Kit Glenoid Ar-9607s - [id number] Implanted:Qty: 1 on 05/20/2024 by Kimani Lopez MD at [facility] Left: Shoulder [employer] 02/20/2028 AR-9607S / / [id number] [employer] Arthrex Univers Revers 36mm Suture Cup Humeral Sterile Latex Free Du-8987y-94hsy - [id number] Implanted:Qty: 1 on 05/20/2024 by Kimani Lopez MD at [facility] Left: Shoulder [employer] [id number] 01/19/2029 AR-9502F- 36CPC / / [id number] [employer] Univers Revers 36mm Shoulder +3mm Small Insert Humeral Sterile Ar-9503s-03 - [id number] Implanted:Qty: 1 on 05/20/2024 by Kimani Lopez MD at [facility] Left: Shoulder [employer] [id number] 08/19/2028 AR-9503S- [id number] [employer] Baseplate 24mm 10 Deg Full Augment 2 Lateralized Hx-9458-5328-2s - [id number] Implanted:Qty: 1 on 05/20/2024 by Kimani Lopez MD at [facility] Left: Shoulder [employer] [id number] 01/19/2029 AR-9580-2 410-2S / / [id number] [employer] Univers Revers 25mm Modular Post Component Glenoid Porous Ar-9582-25 - [id number] Implanted:Qty: 1 on 05/20/2024 by Kimani Lopez MD at [facility] Left: Shoulder [employer] [id number] 08/19/2028 AR-9582-2 5 / / [id number] [employer] 36mm 24 Baseplate Taper Sphere Glenoid Zi-1019-0503 - [id number] Implanted:Qty: 1 on 05/20/2024 by Kimani Lopez MD at [facility] Left: Shoulder [employer] [id number] 11/19/2028 AR-9564-2 436 / / [id number] [employer] 4.5mm 32mm Peripheral Screw Bone Sterile Bt-4749-18zh - [id number] Implanted:Qty: 1 on 05/20/2024 by Kimani Lopez MD at [facility] Left: Shoulder [employer] [id number] 04/19/2028 AR-9562-3 2NL / / [id number] [employer] 4.5mm 32mm Peripheral Screw Bone Sterile Cc-4442-04us - [id number] Implanted:Qty: 1 on 05/20/2024 by Kimani Lopez MD at [facility] Left: Shoulder [employer] [id number] 10/20/2028 AR-9562-3 2NL / / [id number] [employer] Screw Glenoid Locking Reverse Univers Revers 5.5x20mm Titanium Ar-9563-20 - [id number] Implanted:Qty: 1 on 05/20/2024 by Kimani Lopez MD at [facility] Left: Shoulder [employer] [id number] 09/19/2028 AR-9563-2 0 / / [id number] [employer] Screw Glenoid Locking Reverse Univers Revers 5.5x20mm Titanium Ar-9563-20 - [id number] Implanted:Qty: 1 on 05/20/2024 by Kimani Lopez MD at [facility] Left: Shoulder [employer] [id number] 09/19/2028 AR-9563-2 0 / / [id number] [employer] Univers Revers Shoulder 6 Stem Humeral Sterile Ar-9501-06s - [id number] Implanted:Qty: 1 on 05/20/2024 by Kimani Lopez MD at [facility] Left: Shoulder [employer] [id number] 09/19/2028 AR-9501-0 6S / / [id number] Procedures Procedure Name Priority Date/Time Associated Diagnosis Comments POCT LIPID PANEL Routine 06/19/2024 2:28 PM CDT Mixed hyperlipidemia POCT GLUCOSE DEVICE Routine 05/21/2024 1 1:37 AM CDT POCT GLUCOSE DEVICE Routine 05/21/2024 5 :38 AM CDT POCT GLUCOSE DEVICE Routine 05/20/2024 4 :31 PM CDT POCT GLUCOSE DEVICE Routine 05/20/2024 2 :48 PM CDT POCT GLUCOSE DEVICE Routine 05/20/2024 1 :21 PM CDT [facility] AN PROCEDURE PLACEHOLDER Routine 05/20/2024 11:46 AM CDT VA AN ELECTIVE ENDOTRACHEAL AIRWAY Routine 05/20/2024 11:46 AM CDT ARTHROPLASTY SHOULDER - REVERSE TOTAL 05/20/2024 11:13 AM CDT Nontraumatic complete tear of left rotator cuff Bicipital tendinitis of left shoulder Climacteric arthritis, shoulder region, left [facility] AN PROCEDURE PLACEHOLDER Routine 05/20/2024 10:27 AM [...] be considered if clinically indicated. POC Performer [id number] [facility] Blood 05/21/2024 11:3 7 AM CDT 05/21/2024 11:37 AM CDT us Kimani Lopez MD LAB POCT ORDERABLES - DEVIC E Final Result [facility] [address] Department [place] [address] * POCT glucose (05/21/2024 5:38 AM CDT) Glucose, POC 133 70 - 199 mg/dL Comment: For Glucose values <35 mg/dl when Hematocrit is >60 mg/dl,the test may not accurately detect significant hypoglycemia,and testing in the Laboratory should be considered if clinically indicated. POC Performer [id number] [facility] Blood 05/21/2024 5:38 AM CDT 05/21/2024 5:38 AM CDT Kimani Lopez MD LAB POCT ORDERABLES - DEVIC E Final Result Performing Organization Address [facility] Co de Phone Number [facility] [address] [facility] [place] [address] * POCT glucose (05/20/2024 4:31 PM CDT) Glucose, POC 178 70 - 199 mg/dL Comment: For Glucose values <35 mg/dl when Hematocrit is >60 mg/dl,the test may not accurately detect significant hypoglycemia,and testing in the Laboratory should be considered if clinically indicated. POC Performer [id number] [facility] Blood 05/20/2024 4:31 PM CDT 05/20/2024 4:31 PM CDT Kimani Lpoez MD LAB POCT ORDERABLES - DEVIC E Final Result Performing Organization Address [facility] Co de Phone Number [facility] [address] [facility] [place] [address] * POCT glucose (05/20/2024 2:48 PM CDT) Glucose, POC 137 70 - 199 mg/dL Comment: For Glucose values <35 mg/dl when Hematocrit is >60 mg/dl,the test may not accurately detect significant hypoglycemia,and testing in the Laboratory should be considered if clinically indicated. POC Performer [id number] [facility] Blood 05/20/2024 2:48 PM CDT 05/20/2024 2:48 PM CDT Kimani Lopez MD LAB POCT ORDERABLES - DEVIC E Final Result Performing Organization Address City/[facility]/ZIP Co de Phone Number [facility] [address] [facility] [employer] [place], [place] [phone] * POCT glucose (05/20/2024 1:21 PM CDT) Glucose, POC 125 70 - 199 mg/dL Comment: For Glucose values <35 mg/dl when Hematocrit is >60 mg/dl,the test may not accurately detect significant hypoglycemia,and testing in the Laboratory should be considered if clinically indicated. POC Performer [id number] [facility] Blood 05/20/2024 1:21 PM CDT 05/20/2024 1:21 PM CDT us Kimani Lopez MD LAB POCT ORDERABLES - DEVIC E Final Result [facility] [address] Department [place] [address] * VA AN ELECTIVE ENDOTRACHEAL AIRWAY, [facility] AN PROCEDURE PLACEHOLDER (05/20/2024 11:46 AM CDT) Narrative Lillie Rios CRNA - 05/20/2024 11:46 AM CDT Lillie Rios CRNA 05/20/2024 11:48 AM Airway Patient location: OR Urgency: elective Date/time: 05/20/2024 11:23 AM Indications for airway management: anesthesia Difficult airway: no Staff: Supervising provider: Pinky Martinez DO Placed by: DONTRELL: Sadia Damon CRNA Emergent airway documentation: Risks [...] Martinez DO ANESTHESIA ORDERABLES Final Result * [facility] AN PROCEDURE PLACEHOLDER (05/20/2024 10:27 AM CDT) [...] be considered if clinically indicated. POC Performer [id number] [facility] Blood 05/20/2024 10:0 4 AM CDT 05/20/2024 10:04 AM CDT Kimani Lopez MD LAB POCT ORDERABLES - DEVIC E Final Result Performing Organization Address [facility] Co de Phone Number [facility] [address] Department of [employer] [place], [place] [id number] * eGFR (05/02/2024 2:54 PM CDT) eGFR [...] ORDERAB LES Final Result Performing Organization Address City/[facility]/ZIP Co de Phone Number [facility] [address] [place] [address] * (ABNORMAL) Differential, auto (05/02/2024 2:54 PM CDT) Pathologist [facility] Neutrophil abs 7.1(H) 1.5 - 6.5 K/cumm Imm gran abs 0.0 0.0 - 0.1 K/cumm [facility] Lymphocyte abs 3.3 0.8 - 3.3 K/cumm [facility] Monocyte abs 0.7 0.2 - 0.8 K/cumm [facility] Eosinophil abs 0.3 0.0 - 0.5 K/cumm [facility] Basophil abs 0.1 0.0 - 0.1 K/cumm [facility] Neutrophil pct 62.2 % [facility] Comment: Interpretive Data Percent cell count reference ranges are not reported, since discordance with absolute values may lead to misinterpretation of CBC data. Current Interpretive Data was last revised on 2017. Imm gran pct 0.3 % [facility] Comment: Interpretive Data Percent cell count reference ranges are not reported, since discordance with absolute values may lead to misinterpretation of CBC data. Current Interpretive Data was last revised on 2017. Lymphocyte pct 28.5 % [facility] Comment: Interpretive Data Percent cell count reference ranges are not reported, since discordance with absolute values may lead to misinterpretation of CBC data. Current Interpretive Data was last revised on 2017. Monocyte pct 6.1 % [facility] Comment: Interpretive Data Percent cell count reference ranges are not reported, since discordance with absolute values may lead to misinterpretation of CBC data. Current Interpretive Data was last revised on 2017. Eosinophil pct 2.5 % [facility] Comment: Interpretive Data Percent cell count reference ranges are not reported, since discordance with absolute values may lead to misinterpretation of CBC data. Current Interpretive Data was last revised on 2017. Basophil pct 0.4 % [facility] Comment: Interpretive Data Percent cell count reference ranges are not reported, since discordance with absolute values may lead to misinterpretation of CBC data. Current Interpretive Data was last revised on 2017. Blood 05/02/2024 2:54 PM CDT 05/02/2024 2:54 PM CDT Seema Medrano APPRENTICE PLANT ATTENDANT LAB BLOOD ORDERAB LES Final Result [facility] [address] Department [place] [address] * (ABNORMAL) CBC with auto differential (05/02/2024 2:54 PM CDT) [facility] WBC 11.4(H) 3.8 - 9.9 K/cumm Hgb 13.5 11.9 - 15.5 g/dL [facility] Hct 41.7 35.6 - 45.5 % [facility] Plt 176 150 - 400 K/cumm [facility] MPV 11.2 9.1 - 12.3 fL [facility] RBC 4.69 3.90 - 5.20 M/cumm [facility] MCV 88.9 81.3 - 96.4 fL [facility] MCH 28.8 27.1 - 33.3 pg [facility] MCHC 32.4 32.3 - 35.7 g/dL [facility] RDW CV 14.6 11.1 - 14.9 % [facility] RDW SD 46.5 35.7 - 48.1 fL [facility] NRBC abs 0.00 0.00 - 0.01 K/cumm [facility] Blood 05/02/2024 2:54 PM CDT 05/02/2024 2:54 PM CDT Seema Medrano NP LAB BLOOD ORDERAB LES Final Result [facility] [address] Department [place] [address] * (ABNORMAL) Hemoglobin A1c (05/02/2024 2:54 PM CDT) [facility] Hgb A1C 7.0(H) 4.0 - 5.6 % Estimated Average Glucose 154 mg/dL [facility] Comment: The ADA recommends reporting an estimated Average Glucose (eAG) with all Hemoglobin A1c results using the equation derived from a study of 507 normal and diabetic adults. Minority populations were underrepresented and children were not included. (Diabetes Care 31:0135-8615, 2008). The eAG is not equivalent to a fasting glucose. Blood 05/02/2024 2:54 PM CDT 05/02/2024 2:54 PM CDT Seema Medrano APPRENTICE PLANT ATTENDANT LAB BLOOD ORDERAB LES Final Result [facility] [address] Department [place] [address] * (ABNORMAL) Comprehensive metabolic panel (05/02/2024 2:54 PM CDT) Pathologist [facility] Sodium 136 135 - 145 mmol/L Potassium, pl 4.0 3.3 - 4.9 mmol/L [facility] Chloride 100 97 - 110 mmol/L [facility] CO2 24 22 - 32 mmol/L [facility] Anion gap 12 2 - 15 mmol/L [facility] BUN 13 6 - 25 mg/dL [facility] Creatinine 0.51(L) 0.60 - 1.10 mg/dL [facility] Glucose 86 70 - 199 mg/dL [facility] Comment: Interpretive Data Fasting glucose >/= 126 [...] 2022. Calcium 9.5 8.5 - 10.3 mg/dL [facility] Bilirubin, total 0.3 0.1 - 1.2 mg/dL [facility] Protein, pl 7.3 6.5 - 8.5 g/dL [facility] Albumin 4.0 3.5 - 5.0 g/dL [facility] Alk phos 126 40 - 130 Units/L [facility] ALT 20 7 - 45 Units/L [facility] AST 22 10 - 45 Units/L [facility] Blood 05/02/2024 2:54 PM CDT 05/02/2024 2:54 PM CDT Seema Medrano NP LAB BLOOD ORDERAB LES Final Result Performing Organization Address [facility] Co de Phone Number [facility] [address] Department [place] [address] * Hepatitis C antibody Blood (08/18/2023 11:21 AM CDT) Pathologist [facility] Hep C Ab Nonreactive Nonreactive Comment: Interpretive [...] ORDER JEREMIAH Final Result Performing Organization Address [facility] de Phone Number [facility] [address] Department [place] [address] * Albumin Creatinine Ratio, Urine (08/18/2023 11:21 AM CDT) Pathologist [facility] Albumin Ur <12.0 mg/L Comment: Interpretive Data [...] LAB URINE ORDERABLES Final Resul t [facility] [address] Department [place] [address] * DIABETES EYE EXAM (10/31/2022 9:39 AM CDT) Historical Provider HEALTH MAINTENANCE Final Result * COLONOSCOPY (06/30/2022 12:57 PM CDT) Historical Provider HEALTH MAINTENANCE Final Result from Last 3 Months or Most Recently Relevant to Health Maintenance Insurance [employer] MEDICARE [facility] MEDICARE Advance Directives For more information, please contact: [phone] * Full Code (Latest Code Status on File) Date Activated Date Inactivated Comments 05/20/2024 2:44 PM 05/21/2024 5:20 PM Care Teams Hem Inspector Relationship Specialty Start Date End Date Jess Lima NP [address] [place] [address] PCP - General Family Medicine 04/10/24 Cammie Woodruff OD [address] [place] [address] Optometry 03/13/19 Osmany Foster MD [address] [facility] [address] [place] [address] Referring Physician Gastroenterology 08/18/23 [facility] Endocrinology 08/18/23
== END 2024-07-30 10:44 | disposition home or self-care (01) ==
LOC: ANHLAB 10:44
PROVIDERS: PCP Nurse Practitioner Family; Visit Provider Nurse Practitioner
DX: K51.20 Ulcerative (chronic) proctitis without complications (principal); K92.1 Melena; R19.7 Diarrhea, unspecified
CPT/HCPCS: 87493

== ENCOUNTER 2024-08-11 10:15 | Emergency (ER) | payer MEDICARE, SELFPAY ==
--- NOTE | ~2024-08-11 | XR_ITS ---
Right Hand Technique: PA, oblique, and lateral views were obtained. Clinical History: Fifth digit injury Findings: There is acute transverse fracture the proximal shaft of the fifth proximal phalanx, with m ild displacement. There are mild to moderate degenerative changes scattered in the interphalangeal pamela ints of the fingers.. Joint spaces are preserved. Soft tissues are unremarkable. Impression: Transverse fracture the fifth proximal phalanx, as detailed above. Scattered degenerative changes throughout the interphalangeal joints of the fingers. Reviewed, dictated and finalized at location M. Impression: Transverse fracture the fifth proximal phalanx, as detailed above. Scattered degenerative changes throughout the interphalangeal joints of the fin gers.
[2024-08-11 10:38] VITALS: BP 143/84; PULSE 93; RESP 16; TEMP 37.1; O2SAT 97
--- NOTE | 2024-08-11 10:40 | ED_ITS ---
HPI - Extremity Injury (Upper) General Chief Complaint: Extremity Injury, Upper Stated Complaint: Injured Finger Patient presents to the [facility] with complaints fall yesterday, noted tripping on a shoe falling onto right hand and wrist. Patient noted her little finger was bent backwards and is significantly painful, bruised, and swollen. Patient reports taking ibuprofen and Tylenol with minimal relief of symptoms. Patient does also report a small wound to palm of right hand near the little finger. Denies numbness or tingling. Related Data Home Medications ?Medication ?Instructions ?Recorded ?Confirmed ?Last Taken ?Type atorvastatin 40 mg tablet (Lipitor) 40 mg PO QPM 12/04/19 08/11/24 02/29/24 History metoprolol succinate 50 mg 50 mg PO HS 12/04/19 08/11/24 02/29/24 History tablet,extended release 24 hr aripiprazole 30 mg tablet (Abilify) 30 mg PO HS 06/02/23 08/11/24 02/29/24 History desvenlafaxine succinate 100 mg 100 mg PO DAILY 06/02/23 08/11/24 02/29/24 History tablet,extended release 24 hr (Pristiq) acetaminophen 500 mg capsule 1,000 mg PO Q4-6H PRN mild pain 02/09/24 08/07/24 Unknown History (scale score 1-4) dextroamphetamine-amphetamine 20 20 mg PO DAILY 02/09/24 08/11/24 02/29/24 History mg tablet alprazolam 2 mg tablet mg 08/11/24 Unknown History cyanocobalamin (vitamin B-12) mcg 08/11/24 Unknown History 1,000 mcg/mL injection solution ferrous sulfate 325 mg (65 mg mg 08/11/24 Unknown History iron) tablet (FeroSul) semaglutide 1 mg/dose (4 mg/3 mL) mg subcut 08/11/24 Unknown History subcutaneous pen injector (Ozempic) ustekinumab 45 mg/0.5 mL mg subcut 08/11/24 Unknown History subcutaneous solution (Stelara) Allergies Allergy/AdvReac Type Severity Reaction Status Date / Time codeine Allergy Intermediate Itching Verified 08/11/24 10:22 sulfamethoxazole (From Allergy Joint Pain Verified 08/11/24 10:22 Bactrim) triamcinolone Allergy Joint Pain Verified 08/11/24 10:22 trimethoprim (From Bactrim) Allergy Joint Pain Verified 08/11/24 10:22 Review of Systems Constitutional: Constitutional: Reports as per HPI, Denies chills, Denies fatigue, Denies fever(s) and Denies weakness Eyes: Eyes: Reports no additional eye complaints Cardiovascular: Cardiovascular: Reports no additional cardiovascular complaints Respiratory: Respiratory: Reports no additional respiratory complaints Gastrointestinal: Gastrointestinal: Reports no additional gastrointestinal complaints Genitourinary: Genitourinary: Reports no additional female genitourinary complaints Musculoskeletal: Musculoskeletal: Reports as per HPI, Reports arthralgias and Reports joint swelling Integumentary/Breasts: Skin/Breast: Reports as per HPI and Denies erythema Comments: wound right palm, bruising and swelling right little finger and hand Neurologic: Reports as per HPI, Denies headache(s), Denies numbness and Denies weakness Comments: Denies hitting head, no LOC Psychiatric: Psychiatric: Reports no additional psychiatric complaints Endocrine: Endocrine: Reports no additional endocrine complaints Hematologic/Lymphatic: Hematologic/Lymphatic: Reports no additional hematologic/lymphatic complaints Allergic/Immunologic: Allergic/Immunologic: Reports no additional allergic/immunologic complaints [facility] Past Medical History Medical History (Updated 08/11/24 @ 11:34 by ROBIN Lagunas-C) Hepatic steatosis Post-menopausal Vitamin D deficiency Type 2 diabetes mellitus Bipolar disorder Long-term use of immunosuppressant medication Obesity Mucus in stool Fecal urgency High risk medication use Obstructive sleep apnea Esophageal stricture Ulcerative proctitis Hepatomegaly Fecal incontinence Hypertension Tongue, fissured Hyperlipidemia Psychiatric care Nasal septal perforation Anxiety Depression Arthritis History of emphysema COPD (chronic obstructive pulmonary disease) Surgical History Surgical History History of bilateral knee replacement History of section History of hysterectomy History of tonsillectomy Family History Family History Other Renal cell cancer Social History Social History Smoking packs per day: 1.5 Smoking cigarettes per day: 30.0 Years smoked: 45 Smoking pack-years: 67.50 Smoking status: Former smoker Tobacco type: e-cigarettes/vaping Second hand tobacco smoke exposure: Yes Smoking end date: 02/20/09 Additional smoking assessment comments: Still vapes, no nicotine Alcohol intake: never Substance use: never Substance use type: does not use Do You Feel Safe in your Home?: Yes Lack of Transportation: No Lack of Food: Never True Current Housing: I Have Housing Concerned About Future Housing: No Difficulty Paying Gas/Electric Bills: No Difficulty Paying for Meds: No Currently Unemployed: No Education: Associate Degree Difficulty w/ Childcare or Family Care: No Living arrangements: with family Additional living arrangements comments: AND GRANDDAUGHTER Gender identity (if verbalized by the patient): Female Spiritual care concerns: No Exam Const: General: healthy appearing Nutritional Appearance: well nourished Orientation/consciousness: patient oriented x3 Resp: Effort & Inspection: normal respiratory effort Cardio: Rhythm: regular rhythm Skin: Wounds: wounds noted Other: significant ecchymosis noted to dorsum right hand near 4th and 5th metacarpal well as over the 5th digit. abrasion noted to palmar side 5th metacarpal. Neuro: General: patient oriented x3 and moves all extremities Speech: normal speech Gait exam (Neuro): Normal gait present Extrem: Right upper extremity: Extremity exam: right hand abnormal to inspection, normal capillary refill, tenderness of the dorsal hand, of the palm and of the 5th digit, abnormal ROM of finger pain with active ROM and pain with passive ROM, swelling, abrasion and ecchymosis; ROM of fingers abnormal, no foreign bodies and no puncture wound Psych: Mental Status: mental status grossly normal Affect: normal affect Attitude: cooperative Course Course Level of Care: Express Care Visit Vital Signs Vital signs: Vital Signs Temperature 98.7 F 08/11/24 10:38 Pulse Rate 93 08/11/24 10:38 Respiratory Rate 16 08/11/24 10:38 Blood Pressure 143/84 H 08/11/24 10:38 Pulse Oximetry 97 08/11/24 10:38 Temperature 98.7 F 08/11/24 10:38 Pulse Rate 93 08/11/24 10:38 Respiratory Rate 16 08/11/24 10:38 Blood Pressure 143/84 H 08/11/24 10:38 Pulse Oximetry 97 08/11/24 10:38 MDM - Extremity Injury (Upper) MDM Narrative Medical decision making narrative: Discharge instructions reviewed with patient, as well as provided in writing per nursing staff. The instructions also include specific and strict return/GO TO THE ER as well as f/u information. All questions have been answered, and the patient deny any further questions with discharge and discharge plan. Differential Diagnosis Differential diagnosis: Likely fracture of wrist, finger sprain, dislocation of finger and fracture of hand Medical Records Attestation: I reviewed the patient's medical records. Imaging Data Attestation: I personally reviewed and interpreted this imaging study as follows: My impression: fracture 5th digit Radiologist's impression: Impression: Transverse fracture the fifth proximal phalanx, as detailed above. Scattered degenerative changes throughout the interphalangeal joints of the fingers. Reviewed, dictated and finalized at location M. Discharge Plan Discharge Clinical Impression: Fracture of proximal phalanx of finger of right hand Patient Disposition: Home Condition: Stable Instructions: Antibiotic Form, Finger Fracture (ED), Splint Care (ED) Additional Instructions: keep the temporary cast on at all times. Do not get this wet may cover with plastic bag retrospect shower. Continue Tylenol or ibuprofen consistently for pain. May use the hydrocodone as needed for severe pain. This can make you drowsy do not drive, drink alcohol or operate heavy machinery while taking this medication. Speak with the hand physician / surgeon tomorrow for a follow-up appointment For evaluation. Take your disc with you. Patient Language: Faroese Prescriptions: New cephalexin 500 mg capsule 500 mg PO Q12H Qty: 20 0RF hydrocodone-acetaminophen 5-325 mg tablet 1 tablet PO Q8H PRN (Reason: pain) Qty: 20 0RF No Action cyanocobalamin (vitamin B-12) 1,000 mcg/mL solution ferrous sulfate [FeroSul] 325 mg (65 mg iron) tablet alprazolam 2 mg tablet ustekinumab [Stelara] 45 mg/0.5 mL solution SUBCUT Ozempic 1 mg/dose (4 mg/3 mL) pen injector SUBCUT semaglutide 2 mg/dose (8 mg/3 mL) pen injector 2 mg subcut WEEKLY Qty: 9 2RF Rx Instructions: Pt takes on Saturdays (DME) Dexcom G7 Sensor Device See Rx Instructions .Route Qty: 9 3RF Rx Instructions: As directed mesalamine [Canasa] 1,000 mg suppository 1 g RECTAL QHS 42 Days Qty: 60 3RF budesonide 3 mg capsule,delayed,extend.release 9 mg PO DAILY 42 Days Qty: 126 0RF Skyrizi 180 mg/1.2 mL (150 mg/mL) wearable injector 180 mg subcut .every 8 weeks Qty: 1.2 11RF Skyrizi 60 mg/mL solution 1,200 mg IV ONCE atorvastatin [Lipitor] 40 mg tablet 40 mg PO QPM metoprolol succinate 50 mg tablet extended release 24 hr 50 mg PO HS aripiprazole [Abilify] 30 mg Tablet 30 mg PO HS desvenlafaxine succinate [Pristiq] 100 mg Tablet Extended Release 24 Hr 100 mg PO DAILY Rx Instructions: Bottle unopened dextroamphetamine-amphetamine 20 mg tablet 20 mg PO DAILY acetaminophen 500 mg capsule 1,000 mg PO Q4-6H PRN (Reason: mild pain (scale score 1-4)) aspirin 81 mg capsule 81 mg PO DAILY Qty: 30 0RF dapagliflozin propanediol 5 mg tablet 5 mg PO DAILY Qty: 90 2RF Follow-up/Referrals: Talita,Jess Ahuja [employer] C[employer]IER [Primary Care Provider] - Time of Disposition: 11:35
== END 2024-08-11 11:50 | disposition home or self-care (01) ==
PROVIDERS: Emergency Provider Nurse Practitioner Family; PCP Nurse Practitioner Family
DX: S62.616A Displaced fracture of proximal phalanx of right little finger, initial encounter for closed fracture (principal); W18.09XA Striking against other object with subsequent fall, initial encounter; Z87.891 Personal history of nicotine dependence; E11.9 Type 2 diabetes mellitus without complications; Z79.85 Long-term (current) use of injectable non-insulin antidiabetic drugs; I10 Essential (primary) hypertension; E78.5 Hyperlipidemia, unspecified; J44.9 Chronic obstructive pulmonary disease, unspecified; M19.90 Unspecified osteoarthritis, unspecified site; F31.9 Bipolar disorder, unspecified; Z68.27 Body mass index [BMI] 27.0-27.9, adult; E66.9 Obesity, unspecified; Z96.653 Presence of artificial knee joint, bilateral; Z79.82 Long term (current) use of aspirin; K76.0 Fatty (change of) liver, not elsewhere classified
CPT/HCPCS: 29125; 73130; 99214; G0463

== ENCOUNTER 2024-09-06 09:58 | Outpatient (CLI) | payer MEDICARE, SELFPAY ==
--- NOTE | ~2024-09-06 | CT_ITS ---
Non-contrast Head CT History: Hypersomnia Technique: Axial imaging of the brain was performed prior to and following intravenous administratio n of 100 cc of Omnipaque 350 contrast material. Dose reduction technique was used on this scan by uti arsenioing automated exposure control and iterative reconstruction technique. The dose-length product (DL P) was 1210.67 mGy-cm. COMPARISON: 02/09/2024 Findings: There is no evidence of intracranial hemorrhage, mass lesion, or acute infarct. Brain par enchyma appears normal. The ventricles and subarachnoid spaces are normal in size. The calvarium ap pears normal. The visualized paranasal sinuses and mastoid air cells are clear. No abnormal postcontrast enhancement identified. Impression: No significant abnormality seen. Reviewed, dictated and finalized at [facility]. Impression: No significant abnormality seen.
--- OUTSIDE RECORDS SUMMARY | 2024-09-06 10:04 | XMS_ITS | Clinical Summary ---
Author Organization [facility] Address [address] [place] [id number] Care Team Providers Care Pct Name Role Phone Laura Grider MD Primary Care Provider [phone] Allergies Active Allergy Reactions Criticality Noted Date [...] 1:52 PM CDT Height 170.2 cm (5' 7) 10/26/2018 1:52 PM CDT Body Mass Index 29.29 10/26/2018 1:52 PM CDT Plan of Treatment Health Maintenance Due Date Last Done Comments Colorectal Cancer Screening Colonoscopy (10 Years) 1954 Hepatitis C 1972 DTaP, Tdap and Td Vaccines ( 1 - Tdap) 1973 Mammogram Screening 1994 Pneumococcal Vaccine: 50+ Ye ars (1 of 1 - PCV) 2004 Zoster Vaccines (1 of 2) 2004 Annual Medicare Wellness Visit 12/06/2019 Dexa Scan (General) 12/06/2019 COVID-19 Vaccine (2023-2 5 season) 2023 RSV Immunization or 60+ Years (1 - 1-dose 75+ series) 2029 Meningococcal B Vaccine Aged Out No l onger eligible based on patient's age to complete this topic Meningococcal Vaccine Aged Out No aamir anna eligible based on patient's age to complete this topic RSV Immunizations Under 20 Months Aged Out No longer eligible based on patient's age to complete this topic Medical Devices Implanted Type Area Public Service Director Device Identifier Shelf Expiration Date Model / Serial / Lot Knee Components Knee Components Knee Iol [employer] Lens [id number] - [id number] Implanted:Qty: 1 on 08/29/2018 by Marcus Lam MD at [facility] [employer] 08/19/2021 [id number] / / Iol Toric Lens Sa6at3 - [id number] Implanted:Qty: 1 on 10/31/2018 by Marcus Lam MD at [facility] [employer] 08/19/2021 [id number] / [id number] / Insurance AETNA Care Teams Pct Relationship Specialty Start Date End Date Laura Grider MD [address] [place] [address] [place] [address] PCP - General FAMILY PRACTICE 08/24/18
--- OUTSIDE RECORDS SUMMARY | 2024-09-06 10:04 | XMS_ITS | Continuity of Care Document ---
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5 minutes, REM onset = none, Respironics medium DreamWisp nasal mask @ 10 cmH2O, PLMI =10 [place] split night sleep study 01/02/23 sleep onset = 5 minutes, AHI = 12, ResMed medium AirFit F30i full face mask @ 12 cmH2O, PLMI = 28 [place] titration sleep study 05/10/23 sleep onset = 87 minutes, REM onset = 310 minutes, ResMed medium AirFit F30 full face mask @ 11 cmH2O, PLMI = 0.[address] 09/15/20 bullous emphysema, [address] 10/06/21 bullous emphysema, 7 mm RUL nodule Chest CT 02/09/24 bullous emphysema, cardiomegaly, no P.E. [place] hospitalization 02/10/24-02/13/24 NSTEMI, CHF Lab data 03/07/24 [...] the patient. Average apnea/hypopnea index (AHI) is 1.2. Patient used PAP > 4 hours 87% of the time. PAP is set at 13 cmH2O. PAP will remain at 13 cmH2O. Oxygen supplementation: none Keep ramp off. Keep EPR +3 multimedia assistant. Keep humidifier level at 7. Patient is benefiting from PAP therapy. Encouraged [...] carrier. Patient will setup an appointment with [facility] for supplies and pressure adjustments. A major [...] Follow-up: 1 week after methacholine challenge testing [email or web address] Not available 09/05/2024 09:35:29 Plan of Treatment Reminders Order Date Submit Date Provider Last Modified By Organization Details Last Modified Time Details Appointments Follow Up 15 2024 09:00A M Jess Lima NP Not available Not available Not available Lab None recorded . Referral None recorded . Procedures None recorded . Surgeries None recorded . Imaging None recorded . Medication Orders None recorded . Patient TargetsNo targets recorded. Patient Instructions Encounter Date Encounter Id Patient Instructions Last Modified By Organization Details Last Modified Time 09/05/2024 [id number] methacholine challenge* - Please call patient to schedule. NPAN [id number] per [employer]. [email or web address] Not available 09/05/2024 16:18:00 Reason for Referral None Reported. Results Created Date Observation Date Name Description Value Unit Range Abnormal Flag Note LastModifiedBy Organization Detail LastModifiedTime 08/12/1908/11/2024 XR, hand, 3 or more view No observ ation record ed. [email or web address] [facility] [address] [facility] , [place], [address], 08/12/2024 10:25:44 Result Notes None recorded. Problems Name Problem SNOMED Code Status Onset Date Resolution Date Notes Provider Name and Address Organization Details Recorded Time Bipolar disorder 76110080 Hui Fulton MD [address], [address] [facility], [place], [address], [employer] 5 12:21:43 Calcific tendinitis of shoulder 45944752 Hui Fulton MD [address], [place], [address], [employer] 5 12:21:41 Attention deficit hyperactivity disorder, predominantly inattentive type 01045061 Hui Fulton MD [address], [place], [address], [employer] 5 12:21:45 Osteoarthritis 366655700 Hui Fulton MD [address], [place], [address], [employer] 5 12:21:20 Essential hypertension 10504589 Hui Fulton MD [address], [address], [place], [address], [employer] - [employer] 5 12:21:32 Allergic rhinitis 84936100 Active Ronny Fulton MD [address], [place], [address], [employer] - [employer] 5 12:21:57 Diabetes mellitus 39123258 Active Ronny Fulton MD [address], [place], [address], [employer] 5 12:21:34 Sj gren's syndrome 85566120 Active Ronny Fulton MD [address], [place], [address], [employer] - [employer] 5 12:21:18 Ex-smoker 8163877 Active Ronny Fulton MD [address], [place], [address], [employer] 5 12:21:30 Obstructive sleep apnea syndrome 05737241 Active 2021 Ronny Fulton MD [address], [address], [place], [address], [employer] 5 12:21:22 Chronic ulcerative proctitis 97076317 Active 2022 Ronny Fulton MD [address], [address], [place], [address], [employer] 5 12:21:40 Vitamin D deficiency 27596144 Active 2022 Ronny Fulton MD [address], [place], [address], [employer] 5 12:21:17 Hyperlipidemia 44318389 Active 2022 Ronny Fulton MD [address], [place], [address], [employer] 5 12:21:27 Mixed anxiety and depressive disorder 221648221 Active 2022 Ronny Fulton MD [address], [place], [address], [employer] 5 12:21:24 Iron deficiency 00142051 Active 2023 Ronny Fulton MD [address], [place], [address], [employer] 5 12:21:25 Cobalamin deficiency 663890483 Active 2023 Ronny Fulton MD [address], [place], [address], [employer] 5 12:21:35 Closed fracture of proximal phalanx of little finger 005177869 Active 2024 Ronny Fulton MD [address], [place], [address], [employer] 5 12:21:38 Dyspnea on exertion 08655556 Active 2024 Ronny Fulton MD [address], [place], [address], [employer] 09:10:00 Notes:Medical History: Anxie ty/Bipolar depression/ADHD Nasoseptal perforation Rhinitis with postnasal drip Eosinophils 370/uL IgE 16 IU/mL AAT PiMM 160 mg% Thyroid nodules 7 mm RUL nodule Obesity with mild OSAHS, AHI = 9, 06/23/21, on CPAP c/o [employer] T2DM Mixed hyperlipidemia Hypertension NSTEMI HFpEF FREDDY with esophageal stricture NAFLD with caput medusae Hepatosplenomegaly Ulcerative proctitis PLMD Vit D deficiency Sjogren's syndrome Left rotator cuff tear OA Procedure History: T&A 1964 C-sections 1982, 1987, 1988 Bladder suspension 1987 Bladder revision 1987 WIL 1988 Left knee replacement 2004 Right knee replacement 2007 Colonoscopy 2022 Sigmoidoscopy with polypectomy 2023 Cardiac catheterization 2024 Left shoulder reverse replacement surgery 2024 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 Procedures Surgical History Date Name Laterality Status Provider Name and Address Organization Details Recorded Time 01/03/20 24 Ortho - Cortisone Injection completed Kathy Ross NP [address], [place], [address], [facility] [place] [employer] [facility] 01/03/2024 15:00:40 12/13/19 24 Ortho - Cortisone Injection completed Flaco Denise MD [address], [place], [address], [facility] [place] [employer] [facility] 12/13/2023 10:33:59 07/05/19 24 Cortisone Injection (Dequervains/ Greater Trochantric/ Lateral Epicondylitis/ Shoulder/ Subacromial Space/ Knee or Trigger Finger) completed Laura Grider MD [address], [place], [address], [facility] [place] [employer] [facility] 07/05/2023 08:50:43 06/20/19 24 Transitional_Ca re_Management completed Ce Hector RN [facility] [employer] [facility] 06/20/2023 16:41:15 01/05/20 23 Cortisone Injection (Dequervains/ Greater Trochantric/ Lateral Epicondylitis/ Shoulder/ Subacromial Space/ Knee or Trigger Finger) completed Laura Grider MD [address], [place], [address], [facility] [employer] [facility] [employer] [facility] 01/19/2023 19:14:01 09/02/19 23 Cortisone Injection (Dequervains/ Greater Trochantric/ Lateral Epicondylitis/ Shoulder/ Subacromial Space/ Knee or Trigger Finger) completed SHARA Acosta [address], [place], [address], [facility] [place] [employer] [facility] 08/31/2022 08:22:44 07/01/19 23 Colonoscopy completed Hope Zamora LPN [employer] [facility] [employer] [facility] 06/30/2022 14:35:15 03/24/19 05 total shoulder replacement completed Irma Chua MA [facility] [employer] [facility] 09/05/2024 09:16:02 Knee Replacement completed Not Available [facility] 04/20/2022 00:47:57 procedure on urinary bladder completed Not Available [facility] 04/20/2022 00:47:57 Knee Replacement completed Not Available [facility] 04/20/2022 00:47:57 Imaging Results None recorded. Procedure Notes None recorded. Medical Equipment None Reported. Allergies Allergen ID Allergen Name Allergen Category Reaction Reaction Severity Criticality Documentation Date Start Date Code Code System Note Provider Name and Address Organization Details Recorded Time 1284 triamcino lone medicatio n Not available Not available Not available 04/20/2022 59140 RxNorm OINT Not Available [facility] 3 01:02:05 1285 codeine medicatio n itching Not available Not available 04/20/2022 2670 RxNorm Not Available [facility] 3 01:02:05 59862 Bactrim medicatio n Not available Not available Not available 09/04/2024 11208 9 RxNorm Ronny Fulton MD [address] [facility], [facility] [address], [place], [address] [place] [address] [employer] 5 12:37:27 Medications Name Sig Start Date Stop Date Status Note LastModified by Organization Details LastModified Time celecoxib 200 mg capsule Take 1 capsule twice a day by oral route as needed. 09/30 completed Not Available Not Available Not Available cyclobenza ross 10 mg tablet Take 1 tablet 3 times a day by oral route as needed. 08/08 completed Not Available Not Available Not Available amoxicilli n 500 mg capsule 04/05 [...] 3 times a day by oral route. 09/04 completed Not Available Not Available Not Available ofloxacin 0.3 % eye drops 01/25 completed Not Available Not Available Not Available fluconazol e 150 mg tablet TAKE 1 TABLET BY MOUTH ONCE DAILY NEEDED , TAKE ONE TABLET BY MOUTH ONCE DAILY, THEN REPEAT IN 72 HOURS IF NEEDED FOR SYMPTOMS OF YEAST INFECTION 08/08 completed Not Available Not Available Not Available benzonatat e 200 mg capsule TAKE 1 CAPSULE BY MOUTH THREE TIMES DAILY NEEDED FOR COUGH 04/15 completed Not Available Not Available Not Available metoprolol succinate ER 50 mg tablet,ext ended release 24 hr TAKE ONE TABLET BY MOUTH DAILY 2024 active Not Available Not Available Not Avai lable hydrocodon e 5 mg-acetami nophen 325 mg tablet TAKE 1 TABLET BY MOUTH EVERY 8 HOURS NEEDED FOR PAIN 09/04 completed Not Available Not Available Not Available Keflex 500 mg capsule Take 1 capsule twice a day by oral route. 09/04 completed Not Available Not Available Not Available meloxicam 15 mg tablet TAKE 1 TABLET BY MOUTH ONCE DAILY 09/05 completed Not Available Not Available Not Available bupivacain e HCl 0.5 % (5 [...] tablet twice a day by oral route. 08/08 completed Not Available Not Available Not Available amoxicilli n 875 mg tablet Take [...] suspension for injection in office 03/01 completed [facility]: [phone] Not Available Not [...] completed Not Available Not Available Not Available hydrocodon e 7.5 mg-acetami nophen 325 mg tablet Take 1 tablet twice a day by oral route, for severe pain. 09/05 completed Not Available Not Available Not Available prednisone 2.5 mg tablet 1 tab po TID for 3 days then po BID for 3 days then daily for 3 days and then 1/2 daily for 3 days. active Not Available Not Available No t Available pantoprazo le 40 mg tablet,del ayed [...] 1,000 mcg/mL injection solution INJECT 1 ML ONCE A WEEK active Not Available Not Available No t Available fluoxetine 20 mg tablet Take 3 [...] tablet every 12 hours by oral route. 08/08 completed Not Available Not Available Not Available [...] BY MOUTH THREE TIMES A DAY DIRECTED 2024 active Not Available Not Available Not Avai lable lidocaine 5 % topical patch APPLY 1 [...] 3 mL 25 gauge x 1 USE DIRECTED TO INJECT VITAMIN B12 09/04 completed Not Available Not Available Not Available [...] ONE TABLET BY MOUTH TWICE DAILY NEEDED. 2024 active Not Available Not Available Not Avai lable permethrin 1 % topical liquid APPLY A [...] EVERY 4 HOURS BY INHALATIO N ROUTE. 08/08 completed Not Available Not Available Not Available celecoxib 100 mg capsule TAKE 1 CAPSULE TWICE A DAY NEEDED 01/04 completed Not Available Not Available Not Available fluoxetine 20 mg capsule active Not Available Not Available Not Available fluticason e propionate 50 mcg/actuat ion nasal spray,susp ension [place] 1 spray every day by intranasa l [...] completed Not Available Not Available Not Available hydrocodon e 7.5 mg-acetami nophen 300 mg tablet Take 1 tablet 3 times a day by oral route. 09/04 completed Not Available Not Available Not Available BD Integra Syringe 3 mL 25 gauge x 1 09/04 completed Not Available Not Available Not Available Zostavax (PF) 19,400 unit/0.65 mL subcutaneo us suspension 09/30 completed Not Available Not Available Not Available UltiCare Pen Needle 31 gauge x 07/05 completed Not Available Not Available Not Available [...] completed Not Available Not Available Not Available FeroSul 325 mg (65 mg iron) tablet TAKE 1 TABLET BY MOUTH ONCE DAILY FOR 90 DAYS active Not Available Not Available No t Available Flector 1.3 % transderma l 12 [...] Stelara 45 mg/0.5 mL subcutaneo us solution 09/05 completed Not Available Not Available Not Available OneTouch [...] BY MOUTH ONCE DAILY IN THE MORNING 08/08 completed Not Available Not Available Not Available Farxiga 5 mg tablet TAKE 1 [...] Available naloxone 4 mg/actuati on nasal spray 08/08 completed Not Available Not Available Not Available [...] completed Not Available Not Available Not Available Skyrizi active Not Available Not Avail able Not Available Flucelvax Quad (PF) 60 mcg [...] by subcutane ous route for 28 days. 08/08 completed Not Available Not Available Not Available Ozempic 2 mg/dose (8 mg/3 mL) subcutaneo us pen injector INJECT 2MG SUBCUTANE OUSLY ONCE WEEKLY (TAKE ON SATURDAYS ) active Not Available Not Available No t Available Dexcom G7 Sensor device USE DIRECTED 09/04 completed Not Available Not Available Not Available Vitals Date Recorded Heart rate Heart rate Respiratory rate Provider Name and Address Organization Details Last Updated DateTime 09/05/2024 91 /min 91 /min 15 /min Ronny Fulton MD [address] [facility] [address], [place], [address], [employer] 09/05/2024 09:36:53 Date Recorded Body height Body mass index (BMI) Body weight Body temperature Oxygen saturation Oxygen saturation in Arterial blood by Pulse oximetry Systolic And Diastolic Provider Name and Address Organization Details Last Updated DateTime 167.64 cm 28.6 kg/m2 31023.8 5 g 98 [degF] 95 % 95 % 128/82 mm[Hg] Irma Chua MA [employer] 07/17/202 5 09:18:42 Social History Question Answer Notes LastModified by Organizat ion Details LastModified Time Tobacco Smoking Status Former Smoker Not Available [facility] 04/20/2022 00:45:45 Do You Have An Advance Directive? Yes [id number] [id number] Information not available 04/20/2022 Are You Blind Or Do You Have Difficulty Seeing? No MIGRATION.05491 34835 Information not available 04/20/2022 What Is Your Level Of Caffeine Consumption? Occasional MIGRATION.23762 27797 Information not available 04/20/2022 How Much Tobacco Do You Chew? None MIGRATION.76502 09403 Information not available 04/20/2022 In The 14 Days Before Symptom Onset, Have You Had Close Contact With A Laboratory-confir med COVID-19 While That Case Was Ill? No MIGRATION.38599 70794 Information not available 04/20/2022 In The 14 Days Before Symptom Onset, Have You Had Close Contact With A Person Who Is Under Investigation For COVID-19 While That Person Was Ill? No MIGRATION.21948 30485 Information not available 04/20/2022 Are You Deaf Or Do You Have Serious Difficulty Hearing? No MIGRATION.94310 08579 Information not available 04/20/2022 What Type Of Diet Are You Following? REGULAR MIGRATION.79705 64664 Information not available 04/20/2022 Which Illicit Or Recreational Drugs Have You Used? None MIGRATION.15114 65117 Information not available 04/20/2022 Do You Have An Electrostatic Air Filter? No MIGRATION.46247 67950 Information not available 04/20/2022 Do You Have A Humidifier? Yes MIGRATION.61313 37118 Information not available 04/20/2022 Do You Use Insect Repellent Routinely? Yes MIGRATION.73393 23635 Information not available 04/20/2022 Do You Have A Medical Power Of Director Of Mechanical Engineering? Yes MIGRATION.14292 75973 Information not available 04/20/2022 Do You Have Moisture Problems In Your Home? No MIGRATION.92008 46638 Information not available 04/20/2022 What Was The Date Of Your Most Recent Tobacco Screening? 09/05/2024 Information not available 09/05/2024 Do You Have Any Pets? Yes MIGRATION.95786 44503 Information not available 04/20/2022 What Is Your Relationship Status? Information not available 04/15/2024 Do You Use Your Seat Belt Or Car Seat Routinely? Yes Information not available 03/07/2024 Do You Have Smoke And Carbon Monoxide Detectors In Your Home? Yes MIGRATION.08707 45378 Information not available 04/20/2022 Are You Passively Exposed To Smoke? No MIGRATION.05156 38978 Information not available 04/20/2022 How Much Tobacco Do You Smoke? No MIGRATION.95453 17749 Information not available 04/20/2022 Do You Use Sunscreen Routinely? Yes MIGRATION.70375 33708 Information not available 04/20/2022 Have You Recently Traveled Abroad? No MIGRATION.81729 17799 Information not available 04/20/2022 Do You Have Difficulty Walking Or Climbing Stairs? No Running Into Eventful-clu msy Pt Stated MIGRATION.80731 73553 Information not available 04/20/2022 Do You Have Any Dietary Restrictions? No Information not available 04/15/2024 Sex: Unknown Functional Status Question Answer Note LastModified by [employer] ion Details LastModified Time Do you or have you ever used smokeless tobacco? Never used smokeless tobacco MIGRATION.97511 34660 Information not available 04/20/2022 Are you currently employed? No Information not available 04/15/2024 Have you been exposed to chemicals or toxins? No not that aware of Information not available 04/15/2024 Do you have transportation difficulties? No MIGRATION.63940 54894 Information not available 04/20/2022 Are you able to care for yourself? Yes MIGRATION.03041 72893 Information not available 04/20/2022 Do you have difficulty dressing or bathing? No MIGRATION.43142 33077 Information not available 04/20/2022 Do you or have you ever used e-cigarettes or vape? Never used electronic cigarettes MIGRATION.56652 81312 Information not available 04/20/2022 What is your exercise level? None MIGRATION.65006 38175 Information not available 04/20/2022 Do you use any illicit or recreational drugs? No MIGRATION.39838 70852 Information not available 04/20/2022 Do you or have you ever used any other forms of tobacco or nicotine? Yes vape 0 nicotine MIGRATION.60301 35458 Information not available 04/20/2022 What is your level of alcohol consumption? None MIGRATION.37707 65164 Information not available 04/20/2022 Are you able to walk? YESWOREST MIGRATION.73667 98482 Information not available 04/20/2022 Do you have difficulty doing errands alone? No MIGRATION.17077 66472 Information not available 04/20/2022 What is your occupation? retired MIGRATION.24930 91862 Information not available 04/20/2022 Mental Status Question Answer Note LastModified by Organizat ion Details LastModified Time Do you feel stressed (tense, restless, nervous, or anxious, or unable to sleep at night)? RR7614-8 MIGRATION.[id number] 26 Information not available 04/20/2022 Do you have difficulty concentrating, remembering or making decisions? No MIGRATION.56043006 26 Information not available 04/20/2022 Family History Relationship [...] high-dose, quadrivalent, PF 3 completed REJI Read, [facility] [employer] [facility] 12/08/2022 11:49:45 COVID-19, mRNA, LNP-S, PF, shoaib-sucrose, 30 mcg/0.3 mL 3 completed Ce Hector RN null, [facility] [employer] 12/08/2022 11:50:25 RSV, recombinant, protein subunit RSVpreF, adjuvant reconstituted, 0.5 mL, PF 3 completed Ce Hector RN null, [facility] [employer] [facility] 01/09/2023 08:50:20 COVID-19, mRNA, LNP-S, PF, shoaib-sucrose, 30 mcg/0.3 mL 4 completed Bailee Perez RN null, [facility] 11/24/2023 08:40:45 Influenza, high-dose, trivalent, PF 4 completed Bailee Perez RN null, [facility] 11/24/2023 08:45:19 Influenza, split virus, trivalent, preservative 3 completed Melany Ruano CMA null, [facility] 09/01/2022 11:26:16 Influenza, split virus, trivalent, PF 3 completed Melany Ruano CMA null, [facility] 09/01/2022 11:26:16 Influenza, high-dose, quadrivalent, PF 2 completed Melany Ruano CMA null, [facility] 09/01/2022 11:26:16 COVID-19, mRNA, LNP-S, bivalent, PF, 30 mcg/0.3 mL dose 2 completed Melany Ruano CMA null, [facility] 09/01/2022 11:26:16 Hep A-Hep B 2 completed [facility] 09/01/2022 11:26:16 Influenza, split virus, trivalent, preservative 3 completed Not Available [facility] 04/20/2022 01:01:48 Influenza, high-dose, quadrivalent, PF 1 completed Not Available [facility] 04/20/2022 01:01:49 pneumococcal polysaccharide PPV23 0 completed Not Available [facility] 04/20/2022 01:01:49 Pneumococcal conjugate PCV 13 8 completed Not Available [facility] 04/20/2022 01:01:49 Influenza, split virus, quadrivalent, PF 7 completed Not Available [facility] 04/20/2022 01:01:49 Influenza, split virus, quadrivalent, PF 8 completed Not Available [facility] 04/20/2022 01:01:49 Tdap 4 completed Not Available [employer] 04/20/2022 01:01:49 Tdap 4 completed Katelyn Pearson RN [facility], [facility] [employer] 10/24/2023 09:34:20 Past Encounters Encounter ID Performer Location Encounter Start Date Encounter Closed Date Diagnosis/Indication Diagnosis SNOMED-CT Code Diagnosis ICD10 Code Diagnosis Note [id number] MARION Sterling [facility] Primary Care [address] [place] [address] 08/08/2024 10:22:53 08/08/2024 10:50:49 Keeps falling asleep 768891705 G47.10 Z71.1 Patient sleeps very well at night but falls asleep during the day for no reason. Patient reports she can be in the middle of talking and just fall asleep. Bipolar disorder [id number] 4 F31.9 Doing well on current medication s. Discussed potential med changes if issues with falling asleep during the day do not improve. Essential hypertension 50214938 I10 124/74.Con tinue with current medication s, will refill as needed. Obstructiv e sleep apnea syndrome 33942566 G47.33 Continues to wear CPAP as directed. [facility] [id number] M25.519 Patient continues to see Ortho for bilateral shoulder pain, left shoulder surgery in April, follows up with Ortho in a couple of weeks.Cont inue with Tylenol and Ibuprofen- contact Ortho is pain worsens. [id number] MARION Sterling [facility] Primary Care [address] [place] [address] 08/14/2024 10:53:51 08/14/2024 11:39:16 Closed fracture of proximal phalanx of little finger [id number] S62.616A Discussed importance of following up with Ortho so fracture heals appropriat panda.Will treat severe pain as listed below. [id number] Ronny Fulton MD [facility] Pulmonolo gy [address] [address] 09/05/2024 09:04:11 09/05/2024 13:12:50 Dyspnea on exertion [id number] R06.09 R05.9 T78.40XA D89.9 Obstructiv e sleep apnea syndrome [id number] G47.33 Health Concerns Section Related Observation LastModified by Organization Detai ls LastModified Time None Recorded Concern Status LastModified by Organization Details LastModified Time None Recorded Payers Encounter Date Sequence Insurance Name Policy Number Policy Benoit Covered Member ID Benoit Member ID Guarantor Name 09/05/2024 1 [employer] (MEDICARE REPLACEMENT/ ADVANTAGE - PPO) [id number] Yaneth Duarte [id number] Yaneth Duarte Notes Date Note Type Note Provider Name and Address Organization Details Recorded Time 09/05/2024 text/html Primary care/Ref erring provider: MARION Brown Patient is here to go over her shortness of breath evaluation/management. Initial development of shortness of breath: 2014Duration of shortness of breath: 12 yearsCondition of shortness of breath: stableTiming of shortness of breath: noneFrequency: up to 1 time a dayLimits activities: yesAggravating factors: walking, lying downAlleviating factors: rest Modified [employer] [place] ([facility]) Dyspnea Scale - Grade 2Grade 0 [...] Treatment history: Albuterol HFA as needed since 2012, less than once a week Advair diskus 250/50/mcg 1 puff BID 2012-2013Symbicort HFA 160/4.5 mcg 2 puffs BID 2016 onlyTrelegy Ellipta 100/62.5/25 mcg 1 puff daily since 11/2023, not using Other symptoms:Drooling: noDysarthria: noNeck pain: noOdynophagia: noDysphagia: noWeak mastication: noFacial weakness: noNasal speech: noProtruding tongue: noProductive cough: noWheezing: noChest tightness: yesOrthopnea: noFrequent throat clearing or swallowing: noPalpitations: noHeartburn: noEdema: no Environmental exposures:Nicotine smoke: 1 ppd [id number] = 34 pack years; vaping without nicotine until 02/2024Paint: noDye: noDust mites: yesMold: noDamp basement: noWood burning stove: noAnimal dander: dogCockroaches: noPollen: yesArsenic: noAsbestos: noBeryllium: noCadmium: noChromium: noCoal smoke: noDiesel fumes: noNickel: noSilica: noSoot: no CC: The CPAP is blowing hard and the leak is coming out the side of my mouth. During the [facility] home sleep study on 06/23/21, [...] DOZINGSitting and reading - 3Watching television - 0Sitting inactive in a public place (e.g. a theater or meeting) - 0As a passenger in a car for an hour without a break - 0Lying down to rest in the afternoon when circumstances permit - 3Sitting and talking to someone - 0Sitting quietly after lunch without alcohol - 0In a car, while stopped for a few minutes in the traffic - 0TOTAL SCORE 6Subjectively, patient has a moderate chance of dozing. Ronny Fulton MD [address] [facility], [facility] [address], [place], [address], [place] - [facility] [employer] 09/05/2024 09:37:15 OBGyn Episode No OBEpisode recorded.
--- OUTSIDE RECORDS SUMMARY | 2024-09-06 10:04 | XMS_ITS | Data Portability ---
Author Organization [place] [facility], Main Office Address [address] [place] [address] Care Team Providers Care Wellness Health Coach Name Role Phone MARION GREGG ZACHARY Primary Care Provider MARION GREGG ZACHARY Referring Provider [phone] Assessment Encounter Date Assessment Date Assessment LastModified by Organization Details LastModified Time 09/05/2024 09/05/2024 Assessment: Mild OSAHS, AHI = 9 Nicotine smoke: 1 ppd 4114-2422 = 34 pack years; vaping without nicotine until 02/2024 Bullous emphysema 7 mm RUL nodule Plan: The following were reviewed and explained to the patient: [facility] home sleep study 06/23/21 AHI = 9, supine AHI = 10 [facility] titration sleep study 08/17/21 sleep onset = 14.5 minutes, REM onset = none, Respironics medium DreamWisp nasal mask @ 10 cmH2O, PLMI =10 [facility] split night sleep study 01/02/23 sleep onset = 5 minutes, AHI = 12, ResMed medium AirFit F30i full face mask @ 12 cmH2O, PLMI = 28 [facility] titration sleep study 05/10/23 sleep onset = 87 minutes, REM onset = 310 minutes, ResMed medium AirFit F30 full face mask @ 11 cmH2O, PLMI = 0.[address] 09/15/20 bullous emphysema, [address] 10/06/21 bullous emphysema, 7 mm RUL nodule Chest CT 02/09/24 bullous emphysema, cardiomegaly, no P.E[facility] hospitalization 02/10/24-02/13/24 NSTEMI, CHF Lab data 03/07/24 [...] none Keep ramp off. Keep EPR +3 full roll inspector. Keep humidifier level at 7. Patient is [...] carrier. Patient will setup an appointment with [facility] for supplies and pressure adjustments. A major [...] Details Appointments Follow Up 15 2024 09:00A Stephanie Lmia NP Not available Not available Not available Lab None recorded. Referral neurologi st referral - Please call patient to schedule an appointme nt. Thank you. 2024 [id number] [facility] [address] , [address], [place], [address], 08/26/2024 12:05:09 Procedures None recorded. Surgeries None recorded. Imaging CT, head + brain, w/wo contrast - Order for appt. 2024 [facility], [facility] [address], [place], [address], 09/02/2024 15:40:15 electroca rdiogram 2024 [id number] [facility] [address], [place], [address], 04/17/2024 10:21:05 Medication Orders hydrocodo ne 7.5 mg-acetam inophen 300 mg tablet 2024 025 [email or web address] [facility], [address] [place] [address], [id number], 09/04/2024 12:14:18 hydrocodo ne 7.5 mg-acetam inophen 325 mg tablet 2024 025 [email or web address] [facility], [address] [place] [address], [id number], 09/05/2024 09:14:02 oxycodone -acetamin ophen 5 mg-325 mg tablet [email or web address] [place] [address] Pharmacy, [address] [place] [address], [address], 08/08/2024 10:31:27 ibuprofen 800 mg tablet [email or web address] [place] [address] Pharmacy, [address] [place] [address], [id number], 09/04/2024 12:14:47 alprazola m 2 mg tablet 2024 025 [email or web address] [facility], [address] [place] [address], [id number], 04/17/2024 09:47:40 Patient TargetsNo targets recorded. Patient Instructions Encounter Date Encounter Id Patient Instructions Last Modified By Organization Details Last Modified Time 09/05/2024 [id number] methacholine challenge* - Please call patient to schedule. NPAN [id number] per [employer]. [email or web address] Not available 09/05/2024 16:18:00 Reason for Referral Neurologist Referral for Donn ps falling asleep Please call patient to schedule an appointment. Thank you. Referring Physician: Jess Lima, Family Medicine, Encounter Date: 08/08/2024 Results Created Date Observation Date Name Description Value Unit Range Abnormal Flag Note LastModifiedBy Organization Detail LastModifiedTime 06/18/1906/17/2024 urina lysis , dipst ick Leukocytes (reference range: negative ankit/ l) Large Not Available [facility] [address], [place], [address], 06/17/2024 14:29:47 06/18/19 25 06/17/2024 urina lysis , dipst ick Nitrite (reference rage: negative mg/dl) positi ve Not Available [facility] [address], [place], [address], 06/17/2024 14:29:47 06/18/19 25 06/17/2024 urina lysis , dipst ick Urobilinogen (reference range: 0.2-1 mg/dl) 0.2 Not Available [facility] [address], [place], [address], 06/17/2024 14:29:47 06/18/19 25 06/17/2024 urina lysis , dipst ick Protein (reference range: negative mg/dl) Negati ve Not Available [address], [place], [address], 06/17/2024 14:29:47 06/18/19 25 06/17/2024 urina lysis , dipst ick pH (reference range: 5-7) 5.5 Not Available [address], [place], [address], 06/17/2024 14:29:47 06/18/19 25 06/17/2024 urina lysis , dipst ick Blood (reference range: negative Darrius/ l) Non-He molyze d: Trace Not Available [address], [place], [address], 06/17/2024 14:29:47 06/18/19 25 06/17/2024 urina lysis , dipst ick Specific [place] (reference range: 1.005-1.030) 1.020 Not Available [address], [place], [address], 06/17/2024 14:29:47 06/18/19 25 06/17/2024 urina lysis , dipst ick Ketone (reference range: negative mg/dl) Negati ve Not Available [address], [place], [address], 06/17/2024 14:29:47 06/18/19 25 06/17/2024 urina lysis , dipst ick Bilirubin (reference range: negative mg/dl) Negati ve Not Available [address], [place], [address], 06/17/2024 14:29:47 06/18/19 25 06/17/2024 urina lysis , dipst ick Glucose (reference range: negative mg/dl) 500 Not Available [address], [place], [address], 06/17/2024 14:29:47 06/18/19 25 06/17/2024 urina lysis , dipst ick Appearance Cloudy Not Available [address], [place], [address], 06/17/2024 14:29:47 06/18/19 25 06/17/2024 urina lysis , dipst ick Color Yellow Not Available [address], [place], [address], 06/17/2024 14:29:47 04/15/19 25 04/15/2024 compl ete PFT w/ post [facility] hodil ator yo metry * No observ ation record ed. BARCODE Not Available 2024 14:32:37 04/15/19 25 04/15/2024 compl ete PFT w/ post [facility] hodil ator yo metry * No observ ation record ed. BARCODE Not Available 2024 14:55:18 04/17/19 elect rocar diogr am No observ ation record ed. [email or web address] [address], [place], [address], 04/17/2024 09:43:27 08/12/19 25 08/11/2024 XR, hand, 3 or more view No observ ation record ed. [email or web address] [address] [facility] [address] [facility] , [place], [address], 08/12/2024 10:25:44 Result Notes None recorded. Problems Name Problem SNOMED Code Status Onset Date Resolution Date Notes Provider Name and Address Organization Details Recorded Time Bipolar disorder 63216135 Active Ronny Fulton MD [address] [facility], [facility] [address], [place], [address], [employer] [facility] 5 12:21:43 Calcific tendinitis of shoulder 72190943 Active Ronny Fulton MD [address], [place], [address], [employer] [facility] 5 12:21:41 Attention deficit hyperactivity disorder, predominantly inattentive type 43347954 Active Ronny Fulton MD [address], [place], [address], [employer] [facility] [employer] [facility] 5 12:21:45 Osteoarthritis 766445700 Active Ronny Fulton MD [address], [place], [address], [email or web address] [facility] 5 12:21:20 Essential hypertension 57596351 Active Ronny Fulton MD [address], [place], [address], [employer] [facility] [employer] [facility] 5 12:21:32 Allergic rhinitis 08175216 Active Ronny Fulton MD [address], [place], [address], [employer] [facility] 5 12:21:57 Diabetes mellitus 76518449 Active Ronny Fulton MD [address], [place], [address], [employer] [facility] [employer] [facility] 5 12:21:34 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 Ronny Fulton MD [address], [place], [address], [employer] [facility] [employer] [facility] 5 12:21:18 Ex-smoker 7622982 Active Ronny Fulton MD [address], [place], [address], [employer] [facility] [employer] [facility] 5 12:21:30 Obstructive sleep apnea syndrome 26149246 Active 2021 Ronny Fulton MD [address], [place], [address], [employer] [facility] 5 12:21:22 Chronic ulcerative proctitis 61993558 Active 2022 Ronny Futlon MD [address], [place], [address], [employer] [facility] 5 12:21:40 Vitamin D deficiency 99880385 Active 2022 Ronny Fulton MD [address], [place], [address], [employer] [facility] 5 12:21:17 Hyperlipidemia 10207768 Active 2022 Ronny Fulton MD [address], [place], [address], [employer] 5 12:21:27 Mixed anxiety and depressive disorder 398145383 Active 2022 Ronny Fulton MD [address], [place], [address], [employer] [facility] 5 12:21:24 Iron deficiency 65699796 Active 2023 Ronny Fulton MD [address], [place], [address], [employer] 5 12:21:25 Cobalamin deficiency 893411899 Active 2023 Ronny Fulton MD [address], [place], [address], [employer] [facility] 5 12:21:35 Closed fracture of proximal phalanx of little finger 725014837 Active 2024 Ronny Fulton MD [address], [place], [address], [employer] [facility] 5 12:21:38 Dyspnea on exertion 61907198 Active 2024 Ronny Fulton MD [address], [place], [address], [employer] [facility] 5 09:10:00 Notes:Medical History: Anxie ty/Bipolar depression/ADHD Nasoseptal [...] surgery 2024 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 Procedures Surgical History Date Name Laterality Status Provider Name and Address Organization Details Recorded Time 01/03/20 24 Ortho - Cortisone Injection completed Kathy Ross NP [address], [place], [address], [employer] [facility] 01/03/2024 15:00:40 12/13/19 24 Ortho - Cortisone Injection completed Flaco Denise MD [address], [place], [address], [employer] 12/13/2023 10:33:59 07/05/19 24 Cortisone Injection (Dequervains/ Greater Trochantric/ Lateral Epicondylitis/ Shoulder/ Subacromial Space/ Knee or Trigger Finger) completed Laura Grider MD [address], [place], [address], [employer] [facility] 07/05/2023 08:50:43 06/20/19 24 Transitional_Ca re_Management completed Ce Hector RN [employer] [facility] 06/20/2023 16:41:15 01/05/20 23 Cortisone Injection (Dequervains/ Greater Trochantric/ Lateral Epicondylitis/ Shoulder/ Subacromial Space/ Knee or Trigger Finger) completed Laura Grider MD [address], [place], [address], [employer] [facility] 01/19/2023 19:14:01 09/02/19 23 Cortisone Injection (Dequervains/ Greater Trochantric/ Lateral Epicondylitis/ Shoulder/ Subacromial Space/ Knee or Trigger Finger) completed SHARA Acosta [address], [facility] [address], [place], [address], [facility] [employer] [facility] 08/31/2022 08:22:44 07/01/19 23 Colonoscopy completed Hope Zamora LPN [facility] [employer] [facility] 06/30/2022 14:35:15 03/24/19 05 total shoulder replacement completed Irma Chua MA [facility] [employer] [facility] 09/05/2024 09:16:02 Knee Replacement completed Not Available [facility] 04/20/2022 00:47:57 procedure on urinary bladder completed Not Available [facility] 04/20/2022 00:47:57 Knee Replacement completed Not Available [facility] 04/20/2022 00:47:57 Imaging Results None recorded. Procedure Notes None recorded. Medical Equipment None Reported. Allergies Allergen ID Allergen Name Allergen Category Reaction Reaction Severity Criticality Documentation Date Start Date Code Code System Note Provider Name and Address Organization Details Recorded Time 1284 triamcino lone medicatio n Not available Not available Not available 04/20/2022 45383 RxNorm OINT Not Available [facility] 3 01:02:05 1285 codeine medicatio n itching Not available Not available 04/20/2022 2670 RxNorm Not Available [facility] 3 01:02:05 28086 Bactrim medicatio n Not available Not available Not available 09/04/2024 34894 9 RxNorm Ronny Fulton MD [address], [facility] [address], [place], [address], [facility] [employer] [facility] 5 12:37:27 Medications Name Sig Start Date [...] propionate 50 mcg/actuat ion nasal spray,susp ension Walford 1 spray every day by intranasa l [...] Available [employer] Pen Needle 31 gauge x /16 03/01 completed Not Available Not Available Not [...] Not Available Not Available Not Available Fluvirin 5273-9649 45 mcg (15 mcg x 3)/0.5 mL intramuscu lar suspension 01/04 completed Not Available Not Available Not Available marijuana (cannabis) medical marijuana 06/03 completed Not Available Not Available Not Available Saxenda 3 mg/0.5 mL (18 mg/3 mL) subcutaneo us pen injector Inject 0.6 mg every day by subcutane ous route. 02/05 completed Not Available Not Available Not Available Flulaval Quad 3130-5621 60 mcg (15 mcg x 4)/0.5 mL [...] Updated DateTime 5 167.64 cm 28.2 kg/m2 23185.6 6 g 97.3 [degF] 80 /min 94 % 94 % 112/70 mm[Hg] Irma Chua MA [facility] [employer] [facility] 5 09:26:36 Date Recorded Body height Body mass index (BMI) Body weight Body temperature Heart rate Oxygen saturation Oxygen saturation in Arterial blood by Pulse oximetry Systolic And Diastolic Provider Name and Address Organization Details Last Updated DateTime 5 167.64 cm 28.4 kg/m2 91012.2 6 g 98.1 [degF] 99 /min 95 % 95 % 124/74 mm[Hg] RADHA Orozco [facility] 5 10:34:43 Date Recorded Body height Body mass index (BMI) Body weight Body temperature Heart rate Oxygen saturation Oxygen saturation in Arterial blood by Pulse oximetry Systolic And Diastolic Provider Name and Address Organization Details Last Updated DateTime 5 167.64 cm 27.1 kg/m2 06244.5 2 g 98.1 [degF] 77 /min 94 % 94 % 160/82 mm[Hg] RADHA Orozco [employer] [facility] 5 11:11:55 Date Recorded Heart rate Heart rate Respiratory rate Provider Name and Address Organization Details Last Updated DateTime 09/05/2024 91 /min 91 /min 15 /min Ronny Fulton MD [address] [facility], [place] [address], [place], [address], [facility] 09/05/2024 09:36:53 Date Recorded Body height Body mass index (BMI) Body weight Body temperature Oxygen saturation Oxygen saturation in Arterial blood by Pulse oximetry Systolic And Diastolic Provider Name and Address Organization Details Last Updated DateTime 5 167.64 cm 28.6 kg/m2 25232.8 5 g 98 [degF] 95 % 95 % 128/82 mm[Hg] Irma Chua MA [place] [facility] 5 09:18:42 Social History Question Answer Notes LastModified by Organizat ion Details LastModified Time Tobacco Smoking Status Former Smoker Not Available [employer] 04/20/2022 00:45:45 Do You Have An Advance Directive? Yes MIGRATION.22112 97272 Information not available 04/20/2022 Are You Blind Or Do You Have Difficulty Seeing? No MIGRATION.63121 43651 Information not available 04/20/2022 What Is Your Level Of Caffeine Consumption? Occasional MIGRATION.14444 14483 Information not available 04/20/2022 How Much Tobacco Do You Chew? None MIGRATION.93512 38544 Information not available 04/20/2022 In The 14 Days Before Symptom Onset, Have You Had Close Contact With A Laboratory-confir med COVID-19 While That Case Was Ill? No MIGRATION.58467 47040 Information not available 04/20/2022 In The 14 Days Before Symptom Onset, Have You Had Close Contact With A Person Who Is Under Investigation For COVID-19 While That Person Was Ill? No MIGRATION.01444 21495 Information not available 04/20/2022 Are You Deaf Or Do You Have Serious Difficulty Hearing? No MIGRATION.22776 40102 Information not available 04/20/2022 What Type Of Diet Are You Following? REGULAR MIGRATION.70664 59635 Information not available 04/20/2022 Which Illicit Or Recreational Drugs Have You Used? None MIGRATION.46824 32044 Information not available 04/20/2022 Do You Have An Electrostatic Air Filter? No MIGRATION.03418 70167 Information not available 04/20/2022 Do You Have A Humidifier? Yes MIGRATION.64351 20738 Information not available 04/20/2022 Do You Use Insect Repellent Routinely? Yes MIGRATION.63203 70782 Information not available 04/20/2022 Do You Have A Medical Power Of Collect On Delivery Clerk? Yes MIGRATION.45345 81097 Information not available 04/20/2022 Do You Have Moisture Problems In Your Home? No MIGRATION.80602 88064 Information not available 04/20/2022 What Was The Date Of Your Most Recent Tobacco Screening? 09/05/2024 Information not available 09/05/2024 Do You Have Any Pets? Yes MIGRATION.32944 02223 Information not available 04/20/2022 What Is Your Relationship Status? Information not available 04/15/2024 Do You Use Your Seat Belt Or Car Seat Routinely? Yes Information not available 03/07/2024 Do You Have Smoke And Carbon Monoxide Detectors In Your Home? Yes MIGRATION.28803 32299 Information not available 04/20/2022 Are You Passively Exposed To Smoke? No MIGRATION.33518 23559 Information not available 04/20/2022 How Much Tobacco Do You Smoke? No MIGRATION.97239 78601 Information not available 04/20/2022 Do You Use Sunscreen Routinely? Yes MIGRATION.62676 80938 Information not available 04/20/2022 Have You Recently Traveled Abroad? No MIGRATION.97665 23162 Information not available 04/20/2022 Do You Have Difficulty Walking Or Climbing Stairs? No Running Into [employer] ms[employer] Pt Stated MIGRATION.38338 68185 Information not available 04/20/2022 Do You Have Any Dietary Restrictions? No Information not available 04/15/2024 Sex: Unknown Functional Status Question Answer Note LastModified by [employer] ion Details LastModified Time Do you or have you ever used smokeless tobacco? Never used smokeless tobacco MIGRATION.96036 29055 Information not available 04/20/2022 Are you currently employed? No Information not available 04/15/2024 Have you been exposed to chemicals or toxins? No not that aware of Information not available 04/15/2024 Do you have transportation difficulties? No MIGRATION.50983 81455 Information not available 04/20/2022 Are you able to care for yourself? Yes MIGRATION.25154 42894 Information not available 04/20/2022 Do you have difficulty dressing or bathing? No MIGRATION.57930 37656 Information not available 04/20/2022 Do you or have you ever used e-cigarettes or vape? Never used electronic cigarettes MIGRATION.79693 25701 Information not available 04/20/2022 What is your exercise level? None MIGRATION.12555 11287 Information not available 04/20/2022 Do you use any illicit or recreational drugs? No MIGRATION.63553 51624 Information not available 04/20/2022 Do you or have you ever used any other forms of tobacco or nicotine? Yes vape 0 nicotine MIGRATION.14128 05141 Information not available 04/20/2022 What is your level of alcohol consumption? None MIGRATION.74056 43167 Information not available 04/20/2022 Are you able to walk? YESWOREST MIGRATION.26706 53012 Information not available 04/20/2022 Do you have difficulty doing errands alone? No MIGRATION.90262 24725 Information not available 04/20/2022 What is your occupation? retired MIGRATION.74006 36624 Information not available 04/20/2022 Mental Status Question Answer Note LastModified by Organizat ion Details LastModified Time Do you feel stressed (tense, restless, nervous, or anxious, or unable to sleep at night)? LY5005-4 MIGRATION.94058562 26 Information not available 04/20/2022 Do you have difficulty concentrating, remembering or making decisions? No MIGRATION.97450356 26 Information not available 04/20/2022 Family History [...] high-dose, quadrivalent, PF 3 completed REJI Read, [facility] [employer] [facility] 12/08/2022 11:49:45 COVID-19, mRNA, LNP-S, PF, shoaib-sucrose, 30 mcg/0.3 mL 3 completed REJI Read, [facility] [employer] [facility] 12/08/2022 11:50:25 RSV, recombinant, protein subunit RSVpreF, adjuvant reconstituted, 0.5 mL, PF 3 completed REJI Read, [facility] [employer] 01/09/2023 08:50:20 COVID-19, mRNA, LNP-S, PF, shoaib-sucrose, 30 mcg/0.3 mL 4 completed Bailee Perez RN null, [facility] 11/24/2023 08:40:45 Influenza, high-dose, trivalent, PF 4 completed Bailee Perez RN null, [facility] 11/24/2023 08:45:19 Influenza, split virus, trivalent, preservative 3 completed Melany Ruano CMA null, [facility] 09/01/2022 11:26:16 Influenza, split virus, trivalent, PF 3 completed Melany Ruano CMA null, [facility] 09/01/2022 11:26:16 Influenza, high-dose, quadrivalent, PF 2 completed [facility] 09/01/2022 11:26:16 COVID-19, mRNA, LNP-S, bivalent, PF, 30 mcg/0.3 mL dose 2 completed Melany Ruano CMA null, [facility] 09/01/2022 11:26:16 Hep A-Hep B 2 completed Melany Ruano CMA null, [facility] 09/01/2022 11:26:16 Influenza, split virus, trivalent, preservative 3 completed Not Available [facility] 04/20/2022 01:01:48 Influenza, high-dose, quadrivalent, PF 1 completed Not Available [facility] 04/20/2022 01:01:49 pneumococcal polysaccharide PPV23 0 completed Not Available [facility] 04/20/2022 01:01:49 Pneumococcal conjugate PCV 13 8 completed Not Available [facility] 04/20/2022 01:01:49 Influenza, split virus, quadrivalent, PF 7 completed Not Available [facility] 04/20/2022 01:01:49 Influenza, split virus, quadrivalent, PF 8 completed Not Available [facility] 04/20/2022 01:01:49 Tdap 4 completed Not Available [facility] 04/20/2022 01:01:49 Tdap 4 completed Katelyn Pearson RN [facility], [facility] [employer] [facility] 10/24/2023 09:34:20 Past Encounters Encounter ID Performer Location Encounter Start Date Encounter Closed Date Diagnosis/Indication Diagnosis SNOMED-CT Code Diagnosis ICD10 Code Diagnosis Note [id number] Laura Grider MD [facility] Primary [facility] [place] [address] [facility] [address] [place] [address] 04/28/2020 00:00:00 05/19/2020 18:02:06 [id number] Laura Grider MD [facility] Primary [facility] [place] [address] [facility] [address] [place] [address] 08/05/2020 00:00:00 08/19/2020 10:29:43 [id number] Laura Grider MD [facility] Primary [facility] [place] [address] [facility] [address] [place] [address] 11/10/2020 00:00:00 11/10/2020 12:10:22 [id number] Laura Grider MD [facility] Primary [facility] [place] [address] [facility] [address] [facility] [place] [address] 01/21/2021 00:00:00 02/15/2021 20:18:01 [id number] Rony Steele MD [facility] [address] [address] 02/01/2021 00:00:00 02/01/2021 09:50:16 [id number] Laura Grider MD [facility] Primary [facility] [place] [address] [facility] [address] [place] [address] 03/15/2021 00:00:00 03/15/2021 11:19:29 [id number] Laura Grider MD [facility] [place] [address] [facility] [address] [place] [address] 04/21/2021 00:00:00 04/21/2021 09:50:14 [id number] Laura Grider MD [facility] [place] [address] [place] [address] 04/27/2021 00:00:00 04/27/2021 12:50:56 [id number] Laura Grider MD [facility] [place] [address] [place] [address] 05/25/2021 00:00:00 05/25/2021 09:37:56 [id number] Laura Grider MD [facility] [place] [address] [place] [address] 06/24/2021 00:00:00 06/24/2021 09:20:45 [id number] SHARA Acosta [facility] [place] [address] [place] [address] 09/20/2021 00:00:00 09/20/2021 09:44:35 [id number] Rony Porter MD [facility] [address] [place] [address] 09/30/2021 00:00:00 09/30/2021 11:32:16 [id number] Laura Grider MD [facility] [place] [address] [facility] [address] [place] [address] 10/06/2021 00:00:00 10/06/2021 09:00:46 [id number] Laura Grider MD [facility] [place] [address] [place] [address] 12/13/2021 00:00:00 12/20/2021 16:32:54 [id number] SHARA Acosta [facility] [place] [address] [place] [address] 12/14/2021 00:00:00 12/14/2021 09:15:49 [id number] SHARA Acosta [facility] [place] [address] [place] [address] 140 [place] [address] 12/28/2021 00:00:00 12/28/2021 09:28:37 [id number] SHARA Acosta [facility] [place] [address] [facility] [address] [place] [address] 01/05/2022 00:00:00 01/05/2022 11:11:29 [id number] Laura Grider MD [facility] [place] [address] [place] [address] [address] [place] [address] 02/09/2022 00:00:00 02/18/2022 10:23:37 [id number] SHARA Acosta [facility] [place] [address] [place] [address] [address] [place] [address] 03/22/2022 00:00:00 03/22/2022 09:27:18 [id number] Ronny Fulton MD [facility] [address] [address] 04/05/2022 00:00:00 09/01/2022 12:31:55 [id number] Laura Grider MD [facility] [place] [address] [place] [address] [address] [place] [address] 06/27/2022 09:30:47 06/27/2022 10:24:51 Attention deficit hyperactivity disorder 378299371 F90.9 stable, refill givenPt understand s this medication has risk for abuse/depe ndence and agrees to take it only as prescribed and to guard from loss/theft Essential hypertension 33988959 I10 Pain of ri ght shoulder joint 6465579209 0583378 M25.511 consent form signedrepe at injection performedp t tolerated well and was instructed to call if any s/s infection or worsening pain [id number] Laura Grider MD [facility] [place] [address] [place] [address] [address] [place] [address] 07/19/2022 10:05:37 07/19/2022 11:27:58 Tear of skin 804507532 T14.8XXA healing wellwill treat with abx given her diabetes and the size of the woundsoap and water daily, avoid pools, hot tubs, recreation al water until healedkeep moist and covered during the day, ok to leave open at nightf/u prn [id number] Laura Grider MD [facility] Care [address] [place] [address] 09/01/2022 11:09:07 09/01/2022 11:52:37 Pain of right shoulder joint 4599032449 7640049 M25.511 Consent form signed, repeat injection performed. Pt tolerated well and was instructed to call if any s/s infection or worsening pain.Due to needing injection again within 3 months, I have advised to f/u with ortho if they continue to wear off quicker and quicker. [id number] Laura Grider MD [facility] Primary Care [address] 140 [facility] [place] [address] 10/10/2022 09:38:55 10/10/2022 10:03:58 Chronic ulcerative proctitis 76589863 K51.[address] Cody lutz steroid suppositor yNow on mesalamine Diabetes mellitus 900948 09 E11.[address] Neal Essential hypertension 37602380 I10 Fatigue 23910289 R53.83 D64.9 Pain of sh oulder region 53142984 M25.519 refill given Vitamin D deficiency 347 53620 E55.9 Hyperlipidemia 47505059 E78.5 [id number] Laura Grider MD [facility] Primary Care [facility] [address] [facility] 140 [facility] [place] [address] 10/18/2022 14:01:58 10/18/2022 14:43:19 Fever 282602992 R50.9 check UAlabs drawn earlier this AMlikely viral syndromeca ll if no improvemen t or sooner if neededsupp ortive care [id number] Laura Grider MD [facility] Primary Care [address] 140 [facility] [place] [address] 10/27/2022 10:31:31 10/27/2022 13:27:01 Cough 97047044 R05.9 cxr showed no acute issuesneg covid testcheck labs including d-dimerpt with persistent fatigue, cough, feverisho2 sat is consistent with her baseline, she is mildly tachycardi cpush fluids, rest, [facility] givenCT angiogram chest if d-dimer elevatedca ll/return if no improvemen t in 1-2 days or sooner if neededrevi ewed s/s that warrant urgent/bobby rgent eval in meantime [id number] Laura Grider MD [facility] Primary Care [address] 140 [facility] [address] 12/20/2022 08:55:59 12/20/2022 09:43:21 Major depressive disorder 674282477 F32.9 Not in good controlcon tinue pristiq 100 mg dailyconti nue adderall 20 mg tidd/c aripiprazo letrial of vraylar 1.5 mg daily x 2 weeks then increase to 3 mg dailyrevie wed potential med s/ef/u in 4 weeks or sooner if needed Pain of ri ght shoulder joint 7734817355 5702164 M25.511 Prednisone taperheat, gentle stretching f/u in 2 weeks for injection if needed [id number] Laura Grider MD [facility] Primary Care [address] [place] [address] 01/04/2023 16:58:47 01/05/2023 17:19:21 Pain of right shoulder joint 3903509436 3033371 M25.511 injection today, tolerated wellpost injection instructio ns givencan return for repeat injection in 3 months if needed [id number] Laura Grider MD [facility] Primary Care [address] [place] [address] 01/18/2023 09:29:18 01/18/2023 09:53:52 Major depressive disorder 953143416 F32.9 Not in good controlcon tinue pristiq 100 mg dailyconti nue adderall 20 mg tidd/c aripiprazo letrial of vraylar 1.5 mg daily x 2 weeks then increase to 3 mg dailyrevie wed potential med s/ef/u in 4 weeks or sooner if needed update 01/18/23: increase vraylar 4.5 mg dailyf/u in 4 weeks Iron defic iency anemia 20354042 D50.9 cannot tolerate oral ironsees GIpersiste nt iron deficiency hematology referral given [id number] Laura Grider MD [facility] Primary Care [facility] [address] [facility] [address] [place] [address] 03/08/2023 08:40:16 03/08/2023 09:22:14 Major depressive disorder 556459232 F32.9 Not in good controlcon tinue pristiq [...] 4.5 mg daily Iron defic iency anemia 12021141 D50.9 cannot tolerate oral ironsees GIpersiste nt iron deficiency update 03/08/23: tolerating mvirecheck labs [id number] Laura Grider MD [facility] Primary Care [facility] [address] [facility] [address] [place] [address] 04/05/2023 16:39:50 04/05/2023 17:56:08 Pain of right shoulder joint 6783208591 5690529 M25.511 injection today, tolerated wellpost injection instructio ns givencan return for repeat injection in 3 months if needed [id number] Laura Grider MD [facility] Primary Care [facility] [address] [facility] [address] [place] [address] 06/20/2023 16:31:44 06/20/2023 17:21:44 Transition of care 9757478848 105 Z75.8 Sepsis due to urinary tract infection 395421706 N39.0 reviewed notescardi ology does not think there was a cardiac eventurina ry sepsis, repeat labs [id number] Laura Grider MD [facility] Primary Care [address] [place] [address] 07/05/2023 08:10:44 07/05/2023 09:18:17 Laceration of right lower leg 3244430737 3404149 S81.811A keep elevatedso ap and water dailycall Monday if no improvemen t Pain of ri ght shoulder joint 9072261308 3369150 M25.511 injection today, tolerated wellpost injection instructio ns givencan return for repeat injection in 3 months if needed [id number] MARION Orellana [address] [place] [address] 07/20/2023 14:30:03 07/20/2023 14:41:46 [id number] MARION Orellana [address] [place] [address] 09/28/2023 09:30:51 09/28/2023 10:15:58 Dysuria 38194553 R30.0 urine dip positive for nitrites/l eukocytes Thyroid di sorder screening 809551767 Z13.29 Iron deficiency 56047146 E61.1 Anemia screening 2927529 07 Z13.0 Vitamin D deficiency 347 87093 E55.9 Long-term drug therapy 963113832 Z79.899 Pt denies any lending, selling, or borrowing of medication s. Denies any cp, sob, palpitatio ns, or unusual weight loss.Revie wed controlled substance agreement requiremen ts. Refill given.[place] PDMP checked today. [id number] MARION Orellana [address] [place] [address] 10/24/2023 08:49:31 10/24/2023 09:20:46 Administration of diphtheria, pertussis, and tetanus vaccine 983717850 Z23 will be having addition to the family within a monthtdap given Dysuria 43022566 R30.0 Attention deficit hyperactivity disorder 243173711 F90.9 [id number] SHARA Beck [facility] Primary Care [facility] [address] [facility] [address] [facility] [place] [address] 11/09/2023 08:55:46 11/09/2023 09:16:23 [id number] MARION Orellana [facility] Primary Care [facility] [address] [facility] [address] [facility] [place] [address] 11/23/2023 13:51:40 11/23/2023 15:16:42 Chronic obstructive pulmonary disease 98537986 J44.9 noting increased dyspneauna ble to wear cpap last nighttrial trelegy Seasonal allergy 7464488 04 J30.2 Cobalamin deficiency 190 309077 E53.8 Pain of ri ght shoulder joint 8294199421 0950810 M25.511 pt requesting shoulder injectiond eclines oral steroidsor tho referral giventrial lidocaine patches Referral needed 27081986 9 Z76.89 [id number] Flaco Denise MD [facility] [place] [address] [place] [address] 12/13/2023 08:53:32 12/13/2023 10:40:27 Bilateral shoulder joint pain 9849013475 9044350 M25.511 M25.911 [id number] Flaco Denise MD [facility] [place] [address] [place] [address] 01/03/2024 09:22:30 01/03/2024 11:17:36 Pain of left shoulder joint 8755108763 0424553 M25.600 [id number] MARION Sterling [facility] [place] [address] [facility] [address] [place] [address] 01/15/2024 14:31:36 01/15/2024 15:59:41 [id number] MARION Sterling [facility] [address] [facility] [address] [facility] [address] 02/29/2024 08:53:08 02/29/2024 09:52:30 Obstructive sleep apnea syndrome 51550003 G47.33 Diabetes mellitus 882041 09 E11.9 Decrease Ozempic to 1mg every week.Disco ayaka Leega while we wait for update A1c. [facility] of [facility] 70907709 M25.[address] refill: 01/29/24UD S UTDlast appt: 02/29/24Pa tient will follow up in 3 months, sooner if needed. [id number] Ronny Fulton MD [facility]_[address] [address] 03/07/2024 10:00:47 03/18/2024 13:37:06 Dyspnea on exertion 95904667 R06.09 R05.9 T78.40XA D89.9 [id number] Ronny Fulton MD [address] [address] 04/15/2024 11:00:02 04/15/2024 12:12:19 Dyspnea on exertion 67428269 R06.09 R05.9 T78.40XA D89.9 Obstructiv e sleep apnea syndrome 09165792 G47.33 [id number] MARION Sterling [facility] Primary Care [facility] [address] [facility] [address] [place] [address] 04/17/2024 09:14:42 04/17/2024 10:14:46 Diabetes mellitus 46666367 E11.9 Sees Endocrinol ogy Anxiety 32621075 F41.9 Will refill meds as listed below. Patient has not had meds filled since June as she uses them very sparingly. Patient reports the most she takes in one day is two tablets and that is very rare. [facility] of [facility] 69522073 M25.519 Patient is scheduled for left shoulder replacemen t on 05/20/24 Vitamin B1 2 deficiency (non anemic) 69667310 E53.8 Pre-surger y evaluation 185718716 Z01.274 [id number] MARION Sterling [facility] Primary Care [facility] [address] [facility] [address] [place] [address] 06/17/2024 14:18:39 06/17/2024 14:49:25 [id number] MARION Sterling [facility] Primary Care [facility] [address] [facility] [address] [place] [address] 08/08/2024 10:22:53 08/08/2024 10:50:49 Keeps falling asleep 374695537 G47.10 Z71.1 Patient sleeps very well at night but falls asleep during the day for no reason. Patient reports she can be in the middle of talking and just fall asleep. Bipolar disorder 4508440 4 F31.9 Doing well on current medication s. Discussed potential med changes if issues with falling asleep during the day do not improve. Essential hypertension 69110801 I10 124/74.Con tinue with current medication s, will refill as needed. Obstructiv e sleep apnea syndrome 48843262 G47.33 Continues to wear CPAP as directed. [facility] of [facility] 53503614 M25.519 Patient continues to see Ortho for bilateral shoulder pain, left shoulder surgery in April, follows up with Ortho in a couple of weeks.Cont inue with Tylenol and Ibuprofen- contact Ortho is pain worsens. [id number] MARION Sterling [facility] Primary Care [address] [place] [address] 08/14/2024 10:53:51 08/14/2024 11:39:16 Closed fracture of proximal phalanx of little finger 804307585 S62.616A Discussed importance of following up with Ortho so fracture heals appropriat panda.Will treat severe pain as listed below. [id number] Ronny Fulton MD [facility] Pulmonolo gy [address] [address] 09/05/2024 09:04:11 09/05/2024 13:12:50 Dyspnea on exertion 16588177 R06.09 R05.9 T78.40XA D89.9 Obstructiv e sleep apnea syndrome 04248384 G47.33 Health Concerns Section Related Observation LastModified by Organization Detai ls LastModified Time None Recorded Concern Status LastModified by Organization Details LastModified Time None Recorded Advance Directives Directive Y: Payers Insurance Date Sequence Insurance Name Policy Number Policy Benoit Covered Member ID Benoit Member ID Guarantor Name 09/05/2024 1 [employer] (MEDICARE REPLACEMENT/ ADVANTAGE - PPO) [id number] Yaneth Duarte [id number] Yaneth Duarte Notes Date Note Type Note Provider Name and Address Organization Details Recorded Time 04/17/2024 text/html Patient is a 68 year old female that presents to the office for follow up. Patient reports she is scheduled for left shoulder replacement on 05/20/24 and needs surgery clearance. Patient reports following up with [facility] in February--had a cardiac cath completed and was cleared for surgery. Patient followed up with Dr. Fulton earlier this week and was also cleared for surgery. 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 MARION Sterling [address], [place], [address], [email or web address] 04/20/2024 19:26:20 08/08/2024 text/html Patient is a 68 year old female that presents to the office to discuss sleep issues. Falls asleep mid sentence, has been an issue for years but seems to have gotten worse recently. Patient reports sleeping very well at night. MARION Sterling [address], [place], [address], [email or web address] 08/08/2024 10:58:29 08/14/2024 text/html Patient is a 68 year old female that presents to the office for follow up. Patient tripped on a show on Monday and broke her right fifth digit. Patient went to on Monday, had x-rays completed, was placed in a temporary cast and instructed to follow-up with ortho. Patient reports she is not going to follow up with ortho because it is just her pinky finger and they won't do anything. Patient reports it is still very painful. Patient has some ROM. Patient denies numbness and tingling. MARION Sterling [address] [facility], [place], [address], [place] [facility] [employer] [facility] 08/14/2024 13:40:12 09/05/2024 text/html Primary care/Ref erring provider: MARION Brown Patient is here to go over her shortness of breath evaluation/management. Initial development of shortness of breath: 2013Duration of shortness of breath: 12 yearsCondition of shortness of breath: stableTiming of shortness of breath: noneFrequency: up to 1 time a dayLimits activities: yesAggravating factors: walking, lying downAlleviating factors: rest Modified [employer] [place] (mMRC) Dyspnea Scale - Grade 2Grade 0 [...] noEdema: no Environmental exposures:Nicotine smoke: 1 ppd [phone] = 34 pack years; vaping without nicotine until 02/2024Paint: noDye: noDust mites: yesMold: noDamp basement: noWood burning stove: noAnimal dander: dogCockroaches: noPollen: yesArsenic: noAsbestos: noBeryllium: noCadmium: noChromium: noCoal smoke: noDiesel fumes: noNickel: noSilica: noSoot: no CC: The CPAP is blowing hard and the leak is coming out the side of my mouth. During the [facility] home sleep study on 06/23/21, [...] moderate chance of dozing. Ronny Fulton MD [address] [place] [address], [place] [address], [place], [address], [place] [facility] 09/05/2024 09:37:15 OBGyn Episode No OBEpisode recorded.
--- OUTSIDE RECORDS SUMMARY | 2024-09-06 10:04 | XMS_ITS | Encounter Summary ---
Author Organization [facility] Healthcare Address [address] [place] [address] Care Team Providers Care Teacher Industrial Arts Name Role Phone Cammie Woodrufft OD Unavailable Carline Ramires ZOOLOGY TEACHER Primary Care Provider Osmany Foster MD Unavailable Jess Lima ZOOLOGY TEACHER Primary Care Provider Encounter Details Date Type Department Care Team (Late st Contact Info) Description 02/10/2024 Orders Only [facility] Health Information Management [address] [place] [address] Scanning, Provider Social History Tobacco Use Types Packs/Day Years [...] on file Legal Sex Female 3:03 AM 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 Gender Identity Not on file Sexual Orientation Not on file documented as of this encounter Plan of Treatment Not on file documented as of this encounter Procedures Procedure Name Priority Date/Time Associated Diagnosis Comments CARDIOLOGY DOCUMENT SCAN 02/10/2024 documented in this encounter Results * Cardiology Document Scan (02/10/2024) Anatomical Region Laterality Modality Other us Provider Scanning CV CARDIAC SERVICES PROCEDURES Final Result documented in this encounter Visit Diagnoses Not on filedocumented in this encounter Additional Health Concerns Infection Onset Date Last Indicated Resolved Time COVID: Suspected 04/02/2024 04/02/2024 04/02/2024 4:01 PM 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 COVID: Suspected 04/02/2024 04/02/2024 04/02/2024 10:42 PM 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 Influenza, adult 04/02/2024 04/02/2024 04/09/2024 3:07 AM 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 documented as of this encounter Care Teams Teacher Industrial Arts Relationship Specialty Start Date End Date Carline Ramires NP [address] [facility] [address] [place] [address] PCP - General Family Medicine 08/18/23 04/09/24 Jess Lima NP [address] [place] [address] [place] [address] PCP - General Family Medicine 04/10/24 Cammie Woodruff OD [address] [place] [address] Optometry 03/13/19 Osmany Foster MD [address] [place] [address] Referring Physician Gastroenterology 08/18/23 [facility] Endocrinology 08/18/23 documented as of this encounter
--- OUTSIDE RECORDS SUMMARY | 2024-09-06 10:04 | XMS_ITS | Continuity of Care Document ---
Author Organization [facility] Address [address] [place] [address] Phone Care Team Providers Care Rental Sales Representative Name Role Phone Kimani Lopez MD, MD Unavailable Unavailable Allergies, Adverse Reactions, Alerts [...] complete, minimum 2 views Global/Postop followup visit Arc 2 0 Sling Palms Arm Sling X-ray exam shoulder complete, minimum [...] Date Provider Providers Copied on Encounter [facility], [address] [address], [place], [place], [id number], [place] [phone] [facility] No Information John Harman. [address] [place] [address], [id number] , [place]. tel:[phone] [facility], [address] [place] [address], [id number], [place] [phone] [facility] shoulder (chief complaint) Presence of left artificial shoulder joint [place] ROBIN Rola . [address] [place] [address], [place], [place], [id number] , [place]. tel:[phone] Referring Provider: Kimani Gleason, [address] [place] [address], [place], [address] . tel:[phone] [facility] [employer], [address] [place] [address], [id number], [place] [phone] [facility] Pain in left shoulder 5 John Harman. [address] [address], [place], [place], [id number] , [place]. tel:[phone] Referring Provider: Kimani Gleason, [address] [place] [address], [place], [address] . tel:[phone] [facility], [address], [id number], [place] [phone] [facility] left shoulder pain (chief complaint) Presence of left artificial shoulder joint 5 House KILN PLACER Rola . [address] [facility], [address], [place], [place], [id number] , [place]. tel:[phone] Referring Provider: Kimani Gleason, [address] [facility] [address] [facility], [place], [address] . tel:[phone] [facility], [address] [address], [place], [place], [id number], [place] [phone] [facility] shoulder (chief complaint) Presence of left artificial shoulder joint May- 5 House KILN PLACER Rola . [address] [facility], [address] [address], [place], [place], [id number] , [place]. tel:[phone] Referring Provider: Rola KELLY E, [address] [address], [place], [address] . tel:[phone] [facility], [address], [id number], [place] tel:[phone] [facility] No Information Apr- 5 John Harman. [address] [address], [place], [place], [id number] , [place]. tel:[phone] Referring Provider: Kimani Gleason, [address] [address], [place], [address] . tel:[phone] [facility], [address], [id number], [place] tel:[phone] [facility] Pain in left shoulder Apr- 5 House KILN PLACER Rola . [address] [place] [address], [address] [address], [place], [place], [id number] , [place]. [phone] Office/outpa tient visit,est, [facility], [address] [address], [place], [place], [id number], [place] tel:[phone] [facility] left shoulder pain (chief complaint) Complete rotatr-cuff tear/ruptr of left shoulder, not traumaOther specified arthritis, left shoulderBicipit al tendinitis, left shoulder 5 John Harman. [address] [place] [address], [place], [place], [id number] , [place]. tel: [phone] Referring Provider: Kimani Gleason, [address] [place] [address], [place], [address] . tel:[phone] Office/outpa tient visit,[facility], [address] [place] [address], [id number], [phone] [facility] left shoulder pain (chief complaint) Pain in left shoulderComplet e rotatr-cuff tear/ruptr of left shoulder, not traumaBicipital tendinitis, left shoulderOther specified arthritis, left shoulder 5 John Harman. [address] [place] [address], [place], [place], [id number] , [place]. tel:[phone] Referring Provider: Kimani Gleason, [address] [place] [address], [place], [address] . tel:[phone] Office/outpa tient visit,[facility], [address] [place] [address], [id number], [place] [phone] [facility] left shoulder pain (chief complaint) right shoulder pain (chief complaint) Pain in left shoulder 4 Jhon Harman. [address] [place] [address], [id number] , [place]. tel:[phone] Family History Family Member Type Diagnosis Age At Onset Mother Problem (finding) Cancer, unknown Mother Problem (finding) Kidney Disease Payers Payer name Insurance type Covered green party ID Authorushaa tidane(s) [employer] Medicare CI [id number] Social History Type Description Quantity Date Captured Comments Alcohol Use Details Unknown Caffeine Use Details Unknown Tobacco Use Status No Information Smoking Status No Information Sex Female Gender Identity Female Chief Complaint And Reason For Visit No Information Reason For Referral Reason For Referral No Information Plan Of Treatment Date Type Action Status Referral Ordered: X-ray exam shoulder complete, minimum 2 views LT shoulder ordered Referral Ordered: MRI Upper extr joint, w/o contrast LT shoulder ordered Referral Ordered: CT scan Upper Extrem W/o Contrast LT shoulder ordered History Of Present Illness Encounter Date Complaint History Of Prese nt Illness shoulder The patient retu rns 3 months from the above stated procedure. The patient has done well in the interim and notes no wound or skin problems, wound drainage, new neurological complaints. They have been compliant with the prescribed weight bearing status per the patient's report. They have progressed well with prescribed physical therapy and are overall happy with their progress. They have good gains in ROM and feel ready to proceed to the final phase of strengthening. No other complaints. left shoulder pain The patient r eturns [...] Date Instruction Additional Infor jefferson The patient will pro tyrese to full WBAT and activities as tolerated. The will follow up at one year from surgery with repeat films. They will continue their home exercise plan for maintenance and gradual functional improvement. We discussed the role of joint prophylaxis with oral antibiotics prior to any dental or surgical procedures and to call at any time with questions, concerns, or other issues. Questions answered, verbalized understanding. Related to Presence of left artificial shoulder joint The details of the p rocedure performed [...] hospital. We discussed surgery will be at [facility] and the anticipated length of stay would likely be overnight due to her CHINO. We discussed the need for a manager surgical at the time of surgery, my nurse [...]
--- OUTSIDE RECORDS SUMMARY | 2024-09-06 10:04 | XMS_ITS | Referral Summary ---
Author Organization [facility] Address [address] [place] [address] Care Team Providers Care Senior Naval Parachutist Name Role Phone Cammie Woodruff Carolina OD Unavailable Osmany Foster MD Unavailable [phone] Jess Lima NP Primary Care Provider Encounters Date Type Department Care Team Description 08/11/2024 10:15 AM CDT Office Visit [facility] Care at [address] [address] Nicolle Sawyer NP Finger pain, right (Primary Dx) 07/09/2024 ACO Quality [facility] Accountable Care Organization [address] [place] [address] Janet Fabian MA 06/19/2024 2:30 PM CDT Office Visit [facility] Cardiology [address] [facility] [address] [place] [address] Tomy Odonnell MD Chronic heart failure with preserved ejection fraction (HCC) (Primary Dx); Nonobstructive atherosclerosis of coronary artery; Primary hypertension; Mixed hyperlipidemia from Last 3 Months Allergies Active Allergy [...] months Active blood-glucose meter,continuou s (Dexcom G7 Stand Up Forklift Operator) misc Activ e ALPRAZolam (XANAX) 1 mg [...] 2 (two) times a day 5 Active Additional Information Patient not taking.Reported on 08/11/2024 HYDROcodone-jennifer taminophen (NORCO) 5-325 mg per tabletIndicatio ns:Pain Take 1-2 tablets by mouth every 6 (six) hours as needed for pain (Use as first line pain medication) 5 Active Additional Information Patient not taking.Reported on 08/11/2024 oxyCODONE (ROXICODONE) 5 mg immediate release tabletIndicatio ns:Pain Take 1 tablet (5 mg total) by mouth every 6 (six) hours as needed for pain (Breakthrough pain only; Use in addition to/staggered with hydrocodone/APAP . Will not be refilled.) 5 Active Additional Information Patient not taking.Reported on 08/11/2024 hydrOXYzine (VISTARIL) 25 mg capsule Take 1 capsule (25 mg total) by mouth every 6 (six) hours as needed for itching (nausea, vomiting, pain med adjunct) 5 Active Additional Information Patient not taking.Reported on 08/11/2024 budesonide EC (ENTOCORT EC) 3 mg 24 hr capsule 5 Active Active Problems Problem Noted Date [...] (12/13/2018): Added automatically from request for surgery [id number] Allergic rhinitis 08/22/2018 Attention deficit hyperactiv ity [...] Patient states she follows with Endo at [facility], patient unable to recall the provider's name. [...] Immunization Administration Dates Next Due COVID-19 mRNA (GodTube) 0.3 m L (30 mcg) vaccine (12 years and up) 12/08/2022 Hep A / Hep B 05/31/2021 Influenza, Quadrivalent, Karina l Culture-based MDCK, Preservative Free, Antibiotic Free, Intramuscular 11/20/2018 Influenza, Quadrivalent, Hig h Dose, Preservative Free, Intrr 12/08/2022,11/23/2021,11/10/2020 Influenza, Quadrivalent, Spl it, Preservative Free, Intramuscular 11/13/2019,11/09/2017,12/20/2016 Influenza, Trivalent, IM (MDV) 12/20/2012,2012 Influenza, Trivalent, Preser vative Free, Intramuscular 12/17/2012 Influenza, Unspecified 11/21/2023,02/20/2023,02/2022 Cotendo Sars-Cov-2 Bivalent V accination (12+ YRS) 11/23/2021 [...] on file 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 Gender Identity Not on file Sexual Orientation Not on file Last Filed Vital Signs Vital Sign Reading Time Taken Comments Blood Pressure 130/82 08/11/2024 9:35 AM CDT Pulse 87 08/11/2024 9:35 AM CDT Temperature 37.1 C (98.7 F) 08/11/2024 9:35 AM CDT Respiratory Rate 20 08/11/2024 9:35 AM CDT Oxygen Saturation 97% 08/11/2024 9:35 AM CDT Inhaled Oxygen Concentration - - Weight 79.4 kg (175 lb) 08/11/2024 9:35 AM CDT Height 170.2 cm (5' 7) 06/19/2024 2:26 PM CDT Body Mass Index 27.41 06/19/2024 2:26 PM CDT Plan of Treatment Not on file Medical Devices Implanted Type Area Network Announcer Device Identifier Shelf Expiration Date Model / Serial / Lot [employer] Implant Pin Kit Glenoid Ar-9607s - [id number] Implanted:Qty: 1 on 05/20/2024 by Kimani Lopez MD at [facility] Left: Shoulder [employer] 02/20/2028 AR-9607S / / [id number] [employer] Arthrex Univers Revers 36mm Suture Cup Humeral Sterile Latex Free Oq-0687b-18lpv - [id number] Implanted:Qty: 1 on 05/20/2024 by Kimani Lopez MD at [facility] Left: Shoulder [employer] [id number] 01/19/2029 AR-9502F- 36CPC / / [id number] [employer] Univers Revers 36mm Shoulder +3mm Small Insert Humeral Sterile Ar-9503s-03 - [id number] Implanted:Qty: 1 on 05/20/2024 by Kimani Lopez MD at [facility] Left: Shoulder [employer] [id number] 08/19/2028 AR-9503S- 03 / / [id number] [employer] Baseplate 24mm 10 Deg Full Augment 2 Lateralized Re-2192-5405-2s - [id number] Implanted:Qty: 1 on 05/20/2024 by Kimani Lopez MD at [facility] Left: Shoulder [employer] [id number] 01/19/2029 AR-9580-2 410-2S / / [id number] [employer] Univers Revers 25mm Modular Post Component Glenoid Porous Ar-9582-25 - [id number] Implanted:Qty: 1 on 05/20/2024 by Kimani Lopez MD at [facility] Left: Shoulder [employer] [id number] 08/19/2028 AR-9582-2 5 / / [id number] [employer] 36mm 24 Baseplate Taper Sphere Glenoid Mk-3000-9319 - [id number] Implanted:Qty: 1 on 05/20/2024 by Kimani Lopez MD at [facility] Left: Shoulder [employer] [id number] 11/19/2028 AR-9564-2 436 / / [id number] [employer] 4.5mm 32mm Peripheral Screw Bone Sterile Th-8284-18gt - [id number] Implanted:Qty: 1 on 05/20/2024 by Kimani Lopez MD at [facility] Left: Shoulder [employer] [id number] 04/19/2028 AR-9562-3 2NL / / [id number] [employer] 4.5mm 32mm Peripheral Screw Bone Sterile Gt-4785-36hi - [id number] Implanted:Qty: 1 on 05/20/2024 by Kimani Lopez MD at [facility] Left: Shoulder [employer] [id number] 10/20/2028 AR-9562-3 2NL / / [id number] [employer] Screw Glenoid Locking Reverse Univers Revers 5.5x20mm Titanium Ar-9563-20 - [id number] Implanted:Qty: 1 on 05/20/2024 by Kimani Lopez MD at [facility] Left: Shoulder [employer] [id number] 09/19/2028 AR-9563-2 0 / / [id number] [employer] Screw Glenoid Locking Reverse Univers Revers 5.5x20mm Titanium Ar-9563-20 - [id number] Implanted:Qty: 1 on 05/20/2024 by Kimani Lopez MD at [facility] Left: Shoulder [employer] [id number] 09/19/2028 AR-9563-2 0 / / [id number] [employer] Univers Revers Shoulder 6 Stem Humeral Sterile Ar-9501-06s - [id number] Implanted:Qty: 1 on 05/20/2024 by Kimani Lopez MD at [facility] Left: Shoulder [employer] [id number] 09/19/2028 AR-9501-0 6S / / [id number] Procedures Procedure Name Priority Date/Time Associated Diagnosis Comments POCT LIPID PANEL Routine 06/19/2024 2:28 PM CDT Mixed hyperlipidemia EGFR Routine 05/02/2024 2:54 PM CDT Preop [...] Tomy Odonnell MD POINT OF CARE TEST ORDE RABLES Final Result * eGFR (05/02/2024 2:54 PM CDT) eGFR [...] LAB BLOOD ORDERAB LES Final Result [facility] [address] [place] [address] * (ABNORMAL) Hemoglobin A1c (05/02/2024 2:54 PM CDT) Hgb A1C 7.0(H) 4.0 - 5.6 % Estimated Average Glucose 154 mg/dL [facility] Comment: The ADA recommends reporting an estimated Average Glucose (eAG) with all Hemoglobin A1c results using the equation derived from a study of 507 normal and diabetic adults. Minority populations were underrepresented and children were not included. (Diabetes Care 31:5989-2288, 2008). The eAG is not equivalent to a fasting glucose. Blood 05/02/2024 2:54 PM CDT 05/02/2024 2:54 PM CDT Seema Medrano CAMP MANAGER LAB BLOOD ORDERAB LES Final Result Performing Organization Address City/[facility] Co de Phone Number [facility] [address] [place] [address] * Hepatitis C antibody Blood (08/18/2023 11:21 AM CDT) Pathologist [facility] Hep C Ab Nonreactive Nonreactive [...] CDT 08/18/2023 4:02 PM CDT Carline Ramires CAMP MANAGER LAB MICROBIOLOGY - GENERAL ORDER JEREMIAH Final Result [facility] [address] [place] [address] * Albumin Creatinine Ratio, Urine (08/18/2023 11:21 [...] [place] [address] [address] [place] [address] * DIABETES EYE EXAM (10/31/2022 9:39 AM CDT) Historical Provider HEALTH MAINTENANCE Final Result * COLONOSCOPY (06/30/2022 12:57 PM CDT) Historical Provider HEALTH MAINTENANCE Final Result from Last 3 Months or Most Recently Relevant to Health Maintenance Insurance T MEDICARE [employer]ET[employer] MEDICARE Advance Directives For more information, please contact: [phone] * Full Code (Latest Code Status on File) Date Activated Date Inactivated Comments 05/20/2024 2:44 PM 05/21/2024 5:20 PM Care Teams Senior Naval Parachutist Relationship Specialty Start Date End Date Jess Lima NP [address] [place] [address] PCP - General Family Medicine 04/10/24 Cammie Woodruff OD [address] [place] [address] Optometry 03/13/19 Osmany Foster MD [address] [place] [address] Referring Physician Gastroenterology 08/18/23 [facility] Endocrinology 08/18/23
--- OUTSIDE RECORDS SUMMARY | 2024-09-06 10:05 | XMS_ITS | Clinical Summary ---
Author Organization [facility] Address [address] [place] [address] Care Team Providers Care Redeye Gunner Name Role Phone KacySaydaCammiepj Figueroa OD Unavailable Osmany Foster MD Unavailable [phone] Jess Lima NP Primary Care Provider [...] months Active blood-glucose meter,continuou s (Dexcom G7 District Wildlife Manager) misc Activ e ALPRAZolam (XANAX) 1 mg [...] (12/13/2018): Added automatically from request for surgery [id number] Allergic rhinitis 08/22/2018 Attention deficit hyperactiv ity [...] Patient states she follows with Endo at [place], patient unable to recall the provider's name. [...] Description 08/11/2024 10:15 AM CDT Office Visit [facility] at [address] [address] Nicolle Sawyer NP Finger pain, right (Primary Dx) 07/09/[address] [facility] Accountable Care Organization [address] [place] [id number] Janet Fabian MA 06/19/2024 2:30 PM CDT Office Visit [facility] Cardiology [address] [place] [address] Tomy Odonnell MD Chronic heart failure with preserved ejection fraction (HCC) (Primary Dx); Nonobstructive atherosclerosis of coronary artery; Primary hypertension; Mixed hyperlipidemia from Last 3 Months Immunizations Immunization Administration Dates Next Due COVID-19 mRNA (AMDL) 0.3 m L (30 mcg) vaccine (12 years and up) 12/08/2022 Hep A / Hep B 05/31/2021 Influenza, Quadrivalent, Karina l Culture-based MDCK, Preservative Free, Antibiotic Free, Intramuscular 11/20/2018 Influenza, Quadrivalent, Hig h Dose, Preservative Free, Intrr 12/08/2022,11/23/2021,11/10/2020 Influenza, Quadrivalent, Spl it, Preservative Free, Intramuscular 11/13/2019,11/09/2017,12/20/2016 Influenza, Trivalent, IM (MDV) 12/20/2012,2012 Influenza, Trivalent, Preser vative Free, Intramuscular 12/17/2012 Influenza, Unspecified 11/21/2023,02/20/2023,02/2022 [facility] Sars-Cov-2 Bivalent V accination (12+ YRS) 11/23/2021 [...] on file 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 Gender Identity Not on file Sexual Orientation [...] 08/17/2024 Depression Screening 09/03/2024 09/04/2023, 08/18/19 24 Influenza Vaccine (#1) 2024 , 11/21/2023, 02/20/2023, Additional history exists Hemoglobin A1C 11/02/2024 05/02/2024, 08/18/2023 eGFR 05/02/2025 [...] Discontinued 06/30/2022 Hepatitis C Screening Completed 08/18/2023 Medical Devices Implanted Type Area Enterprise Software Engineer Device Identifier Shelf Expiration Date Model / Serial / Lot [employer] Implant Pin Kit Glenoid Ar-9607s - [id number] Implanted:Qty: 1 on 05/20/2024 by Kimani Lopez MD at [facility] Left: Shoulder [employer] 02/20/2028 AR-9607S / / [id number] [employer] Arthrex Univers Revers 36mm Suture Cup Humeral Sterile Latex Free Bf-5055m-29fwi - [id number] Implanted:Qty: 1 on 05/20/2024 by Kimani Lopez MD at [facility] Left: Shoulder [employer] [id number] 01/19/2029 AR-9502F- 36CPC / / [id number] [employer] Univers Revers 36mm Shoulder +3mm Small Insert Humeral Sterile Ar-9503s-03 - [id number] Implanted:Qty: 1 on 05/20/2024 by Kimani Lopez MD at [facility] Left: Shoulder [employer] [id number] 08/19/2028 AR-9503S- 03 / / [id number] [employer] Baseplate 24mm 10 Deg Full Augment 2 Lateralized Ni-4289-0036-2s - [id number] Implanted:Qty: 1 on 05/20/2024 by Kimani Lopez MD at [facility] Left: Shoulder [employer] [id number] 01/19/2029 AR-9580-2 410-2S / / [id number] [employer] Univers Revers 25mm Modular Post Component Glenoid Porous Ar-9582-25 - [id number] Implanted:Qty: 1 on 05/20/2024 by Kimani Lopez MD at [facility] Left: Shoulder [employer] [id number] 08/19/2028 AR-9582-2 5 / / [id number] [employer] 36mm 24 Baseplate Taper Sphere Glenoid Sg-8002-9400 - [id number] Implanted:Qty: 1 on 05/20/2024 by Kimani Lopez MD at [facility] Left: Shoulder [employer] [id number] 11/19/2028 AR-9564-2 436 / / [id number] [employer] 4.5mm 32mm Peripheral Screw Bone Sterile Es-1140-77te - [id number] Implanted:Qty: 1 on 05/20/2024 by Kimani Lopez MD at [facility] Left: Shoulder [employer] [id number] 04/19/2028 AR-9562-3 2NL / / [id number] [employer] 4.5mm 32mm Peripheral Screw Bone Sterile Ep-6001-73xr - [id number] Implanted:Qty: 1 on 05/20/2024 by Kimani Lopez MD at [facility] Left: Shoulder [employer] [id number] 10/20/2028 AR-9562-3 2NL / / [id number] [employer] Screw Glenoid Locking Reverse Univers Revers 5.5x20mm Titanium Ar-9563-20 - [id number] Implanted:Qty: 1 on 05/20/2024 by Kimani Lopez MD at [facility] Left: Shoulder [employer] [id number] 09/19/2028 AR-9563-2 0 / / [id number] [employer] Screw Glenoid Locking Reverse Univers Revers 5.5x20mm Titanium Ar-9563-20 - [id number] Implanted:Qty: 1 on 05/20/2024 by Kimani Lopez MD at [facility] Left: Shoulder [employer] [id number] 09/19/2028 AR-9563-2 0 / / [id number] [employer] Univers Revers Shoulder 6 Stem Humeral Sterile Ar-9501-06s - [id number] Implanted:Qty: 1 on 05/20/2024 by Kimani Lopez MD at [facility] Left: Shoulder [employer] [id number] 09/19/2028 AR-9501-0 6S / / [id number] Procedures Procedure Name Priority Date/Time Associated Diagnosis [...] Capillary blood 06/19/2024 2 :28 PM CDT [facility] Slava Odonnell MD POINT OF CARE TEST ELISABETH SANTO Final Result * eGFR (05/02/2024 2:54 PM [...] ORDERAB LES Final Result Performing Organization Address City/[facility]/ZIP Co de Phone Number [facility] [address] [place] [address] * (ABNORMAL) Hemoglobin A1c (05/02/2024 2:54 PM CDT) Pathologist [facility] Hgb A1C 7.0(H) 4.0 - 5.6 % Estimated Average Glucose 154 mg/dL [facility] Comment: The ADA recommends reporting an estimated Average Glucose (eAG) with all Hemoglobin A1c results using the equation derived from a study of 507 normal and diabetic adults. Minority populations were underrepresented and children were not included. (Diabetes Care 31:9642-5909, 2008). The eAG is not equivalent to a fasting glucose. Blood 05/02/2024 2:54 PM CDT 05/02/2024 2:54 PM CDT Seema Medrano NP LAB BLOOD ORDERAB LES Final Result Performing Organization Address City/[facility]/ZIP Co de Phone Number [facility] [address] Department [address] [employer] [place], [place] [id number] * Hepatitis C antibody Blood (08/18/2023 11:21 [...] ORDER JEREMIAH Final Result Performing Organization Address [facility] Co de Phone Number [facility] [place] [address] [address] [email or web address] [address] * Albumin Creatinine Ratio, Urine (08/18/2023 11:21 AM CDT) Pathologist [facility] Albumin Ur <12.0 mg/L Comment: Interpretive Data [...] ORDERABLES Final Resul t Performing Organization Address City/[facility] [place] [place] [address] [address] [email or web address] [address] * DIABETES EYE EXAM (10/31/2022 9:39 AM CDT) [facility] Provider HEALTH MAINTENANCE Final Result * HM COLONOSCOPY (06/30/2022 12:57 PM CDT) Historical Provider HEALTH MAINTENANCE Final Result from Last 3 Months or Most Recently Relevant to Health Maintenance Insurance AETNA MEDICARE AETNA MEDICARE Advance Directives For more information, please contact: [phone] * Full Code (Latest Code Status on File) Date Activated Date Inactivated Comments 05/20/2024 2:44 PM 05/21/2024 5:20 PM Care Teams Redeye Gunner Relationship Specialty Start Date End Date Jess Lima NP [address] [place] [address] PCP - General Family Medicine 04/10/24 Cammie Woodruff, OD [address] [place] [address] Optometry 03/13/19 Osmany Foster MD [address] [place] [address] Referring Physician Gastroenterology 08/18/23 [facility] [place] Endocrinology 08/18/23
[2024-09-06 10:41] LABS: Estimated Glomerular Filt Rate > 60
== END 2024-09-06 09:59 | disposition home or self-care (01) ==
PROVIDERS: PCP Nurse Practitioner Family; Visit Provider Nurse Practitioner Family
DX: G47.10 Hypersomnia, unspecified (principal)
CPT/HCPCS: 70470; Q9967

== ENCOUNTER 2024-12-13 12:10 | Emergency (ER) | payer MEDICARE, SELFPAY ==
--- NOTE | 2024-12-13 12:13 | ED.URI ---
HPI - URI/Sore Throat General Stated Complaint: congestion Time Seen by Provider: 12/13/24 12:11 Source: patient Mode of arrival: ambulatory Limitations: no limitations History of Present Illness HPI Narrative: Yaneth is a 69-year-old female patient presenting to the clinic today with complaints of sinus congestion and cough x 2 weeks. She reports no fevers, chills, body aches. Has tried Mucinex, Beatriz, and Flonase without much relief of her symptoms. States she has a lot of frontal and maxillary sinus pressure. Is coughing up green phlegm. Related Data Home Medications ?Medication ?Instructions ?Recorded ?Confirmed ?Last Taken ?Type atorvastatin 40 mg tablet (Lipitor) 40 mg PO QPM 12/04/19 10/10/24 02/29/24 History metoprolol succinate 50 mg 50 mg PO HS 12/04/19 10/10/24 02/29/24 History tablet,extended release 24 hr aripiprazole 30 mg tablet (Abilify) 30 mg PO HS 06/02/23 10/10/24 02/29/24 History desvenlafaxine succinate 100 mg 100 mg PO DAILY 06/02/23 10/10/24 02/29/24 History tablet,extended release 24 hr (Pristiq) dextroamphetamine-amphetamine 20 20 mg PO DAILY 02/09/24 10/10/24 02/29/24 History mg tablet alprazolam 2 mg tablet mg 08/11/24 10/10/24 Unknown History cyanocobalamin (vitamin B-12) mcg 08/11/24 10/10/24 Unknown History 1,000 mcg/mL injection solution ferrous sulfate 325 mg (65 mg mg 08/11/24 10/10/24 Unknown History iron) tablet (FeroSul) albuterol sulfate 90 mcg/actuation inhalation 12/13/24 Unknown History aerosol inhaler Allergies Allergy/AdvReac Type Severity Reaction Status Date / Time codeine Allergy Intermediate Itching Verified 12/13/24 12:12 sulfamethoxazole (From Allergy Joint Pain Verified 12/13/24 12:12 Bactrim) triamcinolone Allergy Joint Pain Verified 12/13/24 12:12 trimethoprim (From Bactrim) Allergy Joint Pain Verified 12/13/24 12:12 Review of Systems Review of Systems: Pertinent positives per HPI. Patient denies any fever, chills, rash, headache, visual changes, dizziness, shortness of breath, chest pain, palpitations, nausea, vomiting, diarrhea, constipation, abdominal pain, or any urinary issues. [facility] Past Medical History Medical History Hepatic steatosis Post-menopausal Vitamin D deficiency Type 2 diabetes mellitus Bipolar disorder Long-term use of immunosuppressant medication Obesity Mucus in stool Fecal urgency High risk medication use Obstructive sleep apnea Esophageal stricture Ulcerative proctitis Hepatomegaly Fecal incontinence Hypertension Tongue, fissured Hyperlipidemia Psychiatric care Nasal septal perforation Anxiety Depression Arthritis History of emphysema COPD (chronic obstructive pulmonary disease) Surgical History Surgical History History of bilateral knee replacement History of section History of hysterectomy History of tonsillectomy Family History Family History Other Renal cell cancer Social History Social History Smoking packs per day: 1.5 Smoking cigarettes per day: 30.0 Years smoked: 45 Smoking pack-years: 67.50 Smoking status: Former smoker Tobacco type: e-cigarettes/vaping Second hand tobacco smoke exposure: Yes Smoking end date: 02/20/09 Additional smoking assessment comments: Still vapes, no nicotine Alcohol intake: never Substance use: never Substance use type: does not use Do You Feel Safe in your Home?: Yes Lack of Transportation: No Lack of Food: Never True Current Housing: I Have Housing Concerned About Future Housing: No Difficulty Paying Gas/Electric Bills: No Difficulty Paying for Meds: No Currently Unemployed: No Education: Associate Degree Difficulty w/ Childcare or Family Care: No Living arrangements: with family Additional living arrangements comments: AND GRANDDAUGHTER Gender identity (if verbalized by the patient): Female Spiritual care concerns: No Comments At the time of my signature, I reviewed and agree with the nursing past medical, surgical, social, and family history. There is no relevant family history pertinent to the patient complaint. Exam Narrative: General: Well-developed, well nourished, in no apparent distress Head: Normocephalic, atraumatic Eyes: Pupils equally round and reactive to light bilaterally, EOM intact, sclera and conjunctive clear, no discharge, lids normal Ears: TMs intact and congested, ear canals clear, no drainage, grossly hearing normal. Nose: Nares patent, septal perforation, green nasal discharge, moderate inflammation, maxillary and frontal sinus tenderness. Mouth: Oral pharynx red without lesions or masses, good dentition, MMM. Postnasal drip Neck: Supple, trachea midline, no enlargement of anterior or posterior cervical nodes, no thyroid masses or goiter palpable. Cardio: Regular rate and rhythm, s1 and s2 normal, no murmur appreciated. Resp: Clear to auscultation bilaterally, no rhonchi, rales, wheezing or rubs Course Course Emergency Course: Portions of this record may have been created with voice recognition software. Level of Care: Express Care Visit Vital Signs Vital signs: Vital Signs Temperature 36.9 C 12/13/24 12:16 Pulse Rate 118 H 12/13/24 12:16 Respiratory Rate 18 12/13/24 12:16 Blood Pressure 150/74 H 12/13/24 12:16 Pulse Oximetry 98 12/13/24 12:16 Oxygen Delivery Room Air 12/13/24 12:16 Temperature 36.9 C 12/13/24 12:16 Pulse Rate 118 H 12/13/24 12:16 Respiratory Rate 18 12/13/24 12:16 Blood Pressure 150/74 H 12/13/24 12:16 Pulse Oximetry 98 12/13/24 12:16 Oxygen Delivery Room Air 12/13/24 12:16 Vital signs reviewed MDM - URI/Sore Throat MDM Narrative Medical decision making narrative: At the time of visit patient is resting comfortably on the exam table. Patient appears to be nontoxic. Complaints of sinus congestion and cough x 2 weeks. She reports no fevers, chills, body aches. Has tried Mucinex, Beatriz, and Flonase without much relief of her symptoms. States she has a lot of frontal and maxillary sinus pressure. Is coughing up green phlegm. On exam patient has a well TM congestion, perforated septum, moderate anterior turbinates swelling, green nasal drainage, maxillary and frontal sinus tenderness, lung sounds are clear, heart rates regular rate and rhythm. Plan: I suspect patient has acute bacterial rhinosinusitis. Prescription for prednisone and Augmentin was sent to the pharmacy. Supportive measures were discussed with the patient and they voiced understanding discharge instructions and agrees to treatment plan. Return precautions reviewed Differential Diagnosis Differential diagnosis: Likely upper respiratory infection, otitis media, sinusitis, viral infection, bronchitis, influenza, pharyngitis and other (COVID) Discharge Plan Discharge Clinical Impression: Acute bacterial rhinosinusitis Patient Disposition: Home Condition: Stable Instructions: Antibiotic Form, Rhinosinusitis (ED) Additional Instructions: Take prescription medications only as prescribed-prednisone and Augmentin. Increase fluids and stay well hydrated May take Tylenol or motrin as directed on bottle for pain/fever May use Flonase 1 spray in each nare daily May take OTC antihistamines such as Zyrtec or Claritin daily as directed on bottle May apply Vicks vapor rub to chest to open sinuses Sinus rinses for congestion Cepacol spray, cough drops, throat lozenges, warm tea with honey/lemon, gargle salt water to soothe throat BRAT diet for diarrhea Clear liquids x 24 hours then advance as tolerated for nausea/vomiting Go to the ED if you develop a worsening in your condition- high fever not controlled by Tylenol or Motrin, dehydration, weakness, lethargy, shortness of breath, or chest pain. Follow up with your PCP in 3-5 days if symptoms persist. Patient Language: Solomon Islander Prescriptions: New prednisone 20 mg tablet 40 mg PO DAILY 5 Days Qty: 10 0RF amoxicillin-pot clavulanate 875-125 mg tablet 1 tablet PO Q12H 7 Days Qty: 14 0RF No Action cyanocobalamin (vitamin B-12) 1,000 mcg/mL solution ferrous sulfate [FeroSul] 325 mg (65 mg iron) tablet alprazolam 2 mg tablet albuterol sulfate 90 mcg/actuation HFA aerosol inhaler INHALATION (DME) Dexcom G7 Sensor Device See Rx Instructions .Route Qty: 9 3RF Rx Instructions: As directed Skyrizi 180 mg/1.2 mL (150 mg/mL) wearable injector 180 mg subcut .every 8 weeks Qty: 1.2 11RF Skyrizi 60 mg/mL solution 1,200 mg IV ONCE atorvastatin [Lipitor] 40 mg tablet 40 mg PO QPM metoprolol succinate 50 mg tablet extended release 24 hr 50 mg PO HS aripiprazole [Abilify] 30 mg Tablet 30 mg PO HS desvenlafaxine succinate [Pristiq] 100 mg Tablet Extended Release 24 Hr 100 mg PO DAILY Rx Instructions: Bottle unopened dextroamphetamine-amphetamine 20 mg tablet 20 mg PO DAILY aspirin 81 mg capsule 81 mg PO DAILY Qty: 30 0RF semaglutide 2 mg/dose (8 mg/3 mL) pen injector 2 mg subcut WEEKLY Qty: 9 2RF Rx Instructions: Pt takes on Saturdays dapagliflozin propanediol 5 mg tablet 5 mg PO DAILY Qty: 90 2RF Follow-up/Referrals: Clarence,Jess Ahuja NP [Primary Care Provider, Unknown] Time of Disposition: 12:25 Quality NIHSS Nursing Documentation ED NIHSS nursing documentation: reviewed/agree
[2024-12-13 12:16] VITALS: BP 150/74; PULSE 118; RESP 18; TEMP 36.9; O2SAT 98
== END 2024-12-13 12:35 | disposition home or self-care (01) ==
PROVIDERS: Emergency Provider Nurse Practitioner Family; PCP Nurse Practitioner Family
DX: J01.90 Acute sinusitis, unspecified (principal); E11.9 Type 2 diabetes mellitus without complications; Z79.85 Long-term (current) use of injectable non-insulin antidiabetic drugs; I10 Essential (primary) hypertension; E78.5 Hyperlipidemia, unspecified; J44.9 Chronic obstructive pulmonary disease, unspecified; K76.0 Fatty (change of) liver, not elsewhere classified; E55.9 Vitamin D deficiency, unspecified; E66.9 Obesity, unspecified; Z68.28 Body mass index [BMI] 28.0-28.9, adult; M19.90 Unspecified osteoarthritis, unspecified site; F41.9 Anxiety disorder, unspecified; F31.9 Bipolar disorder, unspecified; Z79.82 Long term (current) use of aspirin; Z87.891 Personal history of nicotine dependence
CPT/HCPCS: 99213; G0463

== ENCOUNTER 2025-01-14 19:59 | Emergency (ER) | payer MEDICARE, SELFPAY ==
--- NOTE | ~2025-01-14 | CT_ITS ---
CT abdomen pelvis w con Clinical History: lower abdominal pain, hx ulcerative colitis . Comparison: 02/09/2024 Technique: Axial images lung bases to symphysis pubis 100 mL Omnipaque 350 Coronal, sagittal reformats CT images acquired with automatic exposure control for dose reduction DLP: 920 mGy-cm Findings: Lung bases: Clear. Visualized heart and pericardium: Unremarkable. Liver: Mild cirrhosis. Enlarged. Steatosis Gallbladder: Unremarkable. Spleen: Several small hypodense foci. Pancreas: Unremarkable. Adrenal glands: Unremarkable. Kidneys: Right kidney- No hydronephrosis. No renal stones. Left kidney- No hydronephrosis. No renal stones. Small cyst. Distal esophagus/stomach: Unremarkable. Small bowel loops: Normal caliber and wall thickness. Colon: Focal sigmoid wall thickening. Chronic rectal wall thickening. A few diverticula. Normal RLQ appendix. Nodes: No enlarged nodes. Peritoneum: No ascites. No free air. Urinary bladder: Unremarkable. Uterus: Unremarkable. Adnexa: No masses. Bones: No acute bony abnormality. Soft tissues: Unremarkable. Aorta: No aneurysm or dissection. Atherosclerotic disease. IVC: Unremarkable. Main portal vein/SMV/splenic vein: Patent. IMPRESSION: 1. Focal acute sigmoid colitis. Probably diverticular. 2. Chronic proctitis. Reviewed, dictated and finalized at location R. OWING WORKER
--- OUTSIDE RECORDS SUMMARY | 2025-01-14 20:02 | XMS_ITS | Continuity of Care Document ---
Author Organization [place] - [facility], [facility] [place] Address [address] [place] [address] Care Team Providers Care Cloth Opener Hand Name Role Phone MARION GREGG ZACHARY Primary Care Provider MARION GREGG ZACHARY Referring Provider [phone] Assessment No assessment recorded. Plan of Treatment Reminders Order Date Submit Date Provider Last Modified By Organization Details Last Modified Time Details Appointments Any 30 2025 10:00A Stephanie Lima NP Not available Not available Not available Lab glycohemo globin, total, blood 2024 025 [facility] (Lab), [address] [place], [address], 12/26/2024 05:30:47 Referral None recorded. Procedures None recorded. Surgeries None recorded. Imaging DEXA, axial skeleton 2024 025 [facility] ([facility] Sched[facility]), [address] [place], [address], 12/25/2024 14:16:25 Medication Orders alprazola m 2 mg tablet 2024 025 [facility], [address] [place] [address], [address], 12/25/2024 10:26:17 Patient TargetsNo targets recorded. Patient InstructionsNo instructions recorded. Reason for Referral None Reported. Results Created Date Observation Date Name Description Value Unit Range Abnormal Flag Note LastModifiedBy Organization Detail LastModifiedTime 12/03/1912/02/2024 urina lysis , dipst ick Leukocytes (reference range: negative ankit/ l) Trace Not Available [address], [place], [address], 12/02/2024 16:04:39 12/03/1912/02/2024 urina lysis , dipst ick Nitrite (reference rage: negative mg/dl) negati ve Not Available [address], [place], [address], 12/02/2024 16:04:39 12/03/1912/02/2024 urina lysis , dipst ick Urobilinogen (reference range: 0.2-1 mg/dl) 0.2 Not Available [address], [place], [address], 12/02/2024 16:04:39 12/03/1912/02/2024 urina lysis , dipst ick Protein (reference range: negative mg/dl) Negati ve Not Available [address], [place], [address], 12/02/2024 16:04:39 12/03/1912/02/2024 urina lysis , dipst ick pH (reference range: 5-7) 6.0 Not Available [address], [place], [address], 12/02/2024 16:04:39 12/03/1912/02/2024 urina lysis , dipst ick Blood (reference range: negative Darrius/ l) Negati ve Not Available [address], [place], [address], 12/02/2024 16:04:39 12/03/1912/02/2024 urina lysis , dipst ick Specific [place] (reference range: 1.005-1.030) 1.005 Not Available [address], [place], [address], 12/02/2024 16:04:39 12/03/1912/02/2024 urina lysis , dipst ick Ketone (reference range: negative mg/dl) Negati ve Not Available [address], [place], [address], 12/02/2024 16:04:39 12/03/1912/02/2024 urina lysis , dipst ick Bilirubin (reference range: negative mg/dl) Negati ve Not Available [address], [place], [address], 12/02/2024 16:04:39 12/03/1912/02/2024 urina lysis , dipst ick Glucose (reference range: negative mg/dl) 1000 Not Available [address], [place], [address], 12/02/2024 16:04:39 12/03/1912/02/2024 urina lysis , dipst ick Appearance Clear Not Available [address], [place], [address], 12/02/2024 16:04:39 12/03/1912/02/2024 urina lysis , dipst ick Color Pale Yellow Not Available [address], [place], [address], 12/02/2024 16:04:39 Result Notes None recorded. 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 Active Ronny Fulton MD [address], [place], [address], [employer] [facility] [employer] [facility] 5 12:21:45 Osteoarthritis 092722546 Active Ronny Fulton MD [address], [place], [address], [employer] [facility] [employer] 5 12:21:20 Essential hypertension 26812434 Active Ronny Fulton MD [address], [place], [address], [employer] [facility] [employer] [facility] 5 12:21:32 Allergic rhinitis 34112714 Active Ronny Fulton MD [address], [place], [address], [employer] [facility] [employer] 5 12:21:57 Diabetes mellitus 12532815 Active MARION Sterling [address], [place], [address], [employer] [facility] [employer] [facility] 5 16:22:00 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 Ronny Fulton MD [address], [place], [address], [employer] [facility] [employer] 5 12:21:18 Ex-smoker 7848476 Active Ronny Fulton MD [address], [place], [address], [employer] [facility] [employer] 5 12:21:30 Obstructive sleep apnea syndrome 44812408 Active 2021 Ronny Fulton MD [address], [place], [address], [facility] [email or web address] [facility] [email or web address] [facility] 5 12:21:22 Chronic ulcerative proctitis 43914009 Active 2022 Ronny Fulton MD [address], [place], [address], [facility] [email or web address] [facility] 5 12:21:40 Vitamin D deficiency 80323897 Active 2022 Ronny Fulton MD [address], [place], [address], [facility] [email or web address] [facility] [email or web address] [facility] 5 12:21:17 Hyperlipidemia 15864623 Active 2022 Ronny Fulton MD [address], [place], [address], [facility] [email or web address] [facility] [employer] [facility] 5 12:21:27 Mixed anxiety and depressive disorder 387132600 Active 2022 Ronny Fulton MD [address], [place], [address], [facility] [email or web address] [facility] [email or web address] [facility] 5 12:21:24 Iron deficiency 28717932 Active 2023 Ronny Fulton MD [address], [place], [address], [employer] [facility] [employer] [facility] 5 12:21:25 Cobalamin deficiency 698602039 Active 2023 Ronny Fulton MD [address], [place], [address], [facility] [email or web address] [facility] [email or web address] [facility] 5 12:21:35 Closed fracture of proximal phalanx of little finger 519001823 Active 2024 Ronny Fulton MD [address], [place], [address], [facility] [email or web address] [facility] [employer] [facility] 5 12:21:38 Acute cough Active 2024 MARION Sterling [address], [place], [address], [facility] [email or web address] [facility] [email or web address] [facility] 5 14:49:05 Dysuria 81976417 Active 2024 Bailee Perez RN null, [facility] [employer] [facility] 16:04:40 Anxiety 05469114 Active 2024 MARION Sterling [address] [facility] [place] [address], [place], [address], [facility] [employer] [facility] 10:15:05 Notes:Medical History: Anxie ty/Bipolar depression/ADHD Nasoseptal perforation [...] surgery 2024 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 Procedures Surgical History Date Name Laterality Status Provider Name and Address Organization Details Recorded Time 01/03/20 24 Ortho - Cortisone Injection completed Kathy Ross NP [address] [facility] [place] [address], [place], [address], [facility] [employer] 01/03/2024 15:00:40 12/13/19 24 Ortho - Cortisone Injection completed Flaco Denise MD [address] [facility], [facility] [address], [place], [address], [facility] [email or web address] [facility] [employer] [facility] 12/13/2023 10:33:59 07/05/19 24 Cortisone Injection (Dequervains/ Greater Trochantric/ Lateral Epicondylitis/ Shoulder/ Subacromial Space/ Knee or Trigger Finger) completed Laura Grider MD [address] [facility] [facility] [address], [place], [address], [facility] [employer] 07/05/2023 08:50:43 06/20/19 24 Transitional_Ca re_Management completed Ce Hector RN [facility] [email or web address] [facility] 06/20/2023 16:41:15 01/05/20 23 Cortisone Injection (Dequervains/ Greater Trochantric/ Lateral Epicondylitis/ Shoulder/ Subacromial Space/ Knee or Trigger Finger) completed Laura Grider MD [address], [place], [address], [facility] [email or web address] [facility] 01/19/2023 19:14:01 09/02/19 23 Cortisone Injection (Dequervains/ Greater Trochantric/ Lateral Epicondylitis/ Shoulder/ Subacromial Space/ Knee or Trigger Finger) completed SHARA Acosta [address], [place], [address], [facility] [email or web address] [facility] 08/31/2022 08:22:44 07/01/19 23 Colonoscopy completed Hope Zamora LPN [facility] [email or web address] [facility] 06/30/2022 14:35:15 03/24/19 05 total shoulder replacement completed Irma Chua MA [facility] [email or web address] [facility] 09/05/2024 09:16:02 Knee Replacement completed Not Available [facility] 04/20/2022 00:47:57 procedure on urinary bladder completed Not Available [facility] 04/20/2022 00:47:57 Knee Replacement completed Not Available [facility] 04/20/2022 00:47:57 Imaging Results None recorded. Procedure Notes None recorded. Medical Equipment None Reported. Allergies Allergen ID Allergen Name Allergen Category Reaction Reaction Severity Criticality Documentation Date Start Date Code Code System Note Provider Name and Address Organization Details Recorded Time 1284 triamcino lone medicatio n Not available Not available Not available 04/20/2022 87474 RxNorm OINT Not Available [facility] 3 01:02:05 1285 codeine medicatio n itching Not available Not available 04/20/2022 2670 RxNorm Not Available [facility] 3 01:02:05 63499 Bactrim medicatio n Not available Not available Not available 09/04/2024 09923 9 RxNorm Ronny Fulton MD [address], [place], [address] [place] [facility] 12:37:27 74444 sulfameth oxazole / trimethop rim medicatio n arthralgi a (joint pain) Not available low 01/13/20252023 98790 RxNorm Not Available nini - External Data Service - prod 11:30:50 Medications Name Sig Start Date Stop Date [...] Not Available atorvastat in 40 mg tablet TAKE 1 TABLET BY MOUTH [...] a day by oral route prn cough 2024 active Not Available Not Available Not Avai lable metoprolol succinate ER 50 mg tablet,ext ended [...] Available Not Available meloxicam 15 mg tablet Take 1 [...] suspension for injection in office 03/01 completed [facility]: 0003-0 494-20 Not Available Not Available [...] solution INJECT 1 ML ONCE A WEEK 2024 active Not Available Not Available Not [...] TABLET BY MOUTH THREE TIMES A DAY 2024 active Not Available Not Available Not [...] 90 mcg/actuat ion aerosol inhaler INHALE TWO PUFFS EVERY 4 HOURS 2024 active Not Available Not Available Not Avai lable celecoxib 100 mg capsule TAKE 1 CAPSULE TWICE A DAY NEEDED 01/04 completed Not Available Not Available Not Available fluoxetine 20 mg capsule active Not Available Not Available Not Available fluticason e propionate 50 mcg/actuat ion nasal spray,susp ension [place] 1 spray every day by intranasa l [...] Not Available aripiprazo le 30 mg tablet TAKE 1 TABLET BY MOUTH ONCE DAILY DIRECTED active Not Available Not Available No [...] Available mesalamine 1,000 mg rectal suppositor y INSERT 1 GRAM RECTALLY EVERY DAY AT BEDTIME FOR 8 WEEKS active Not Available Not Available No t Available chlorhexid ine gluconate 0.12 % mouthwash [...] 25 gauge x 1 USE TO INJECT B12 active Not Available Not Available No t Available Zostavax (PF) 19,400 unit/0.65 mL subcutaneo [...] Not Available Not Available Not Available Fluvirin 6421-3588 45 mcg (15 mcg x 3)/0.5 mL [...] 2nd Gen Pen Needle 32 gauge x 32 12/11 completed Not Available Not Available Not [...] weight Body temperature Heart rate Oxygen saturation Systolic And Diastolic Provider Name and Address Organization Details Last Updated DateTime 5 167.64 cm 29.4 kg/m2 74562.8 1 g 97.6 [degF] 95 /min 94 % 128/88 mm[Hg] RADHA Orozco [place] [employer] [place] [employer] [facility] 5 10:10:46 Social History Question Answer Notes LastModified by Organizat ion Details LastModified Time Tobacco Smoking Status Former Smoker Not Available [facility] 04/20/2022 00:45:45 Do You Have An Advance Directive? Yes MIGRATION.29618 12104 Information not available 04/20/2022 Are You Blind Or Do You Have Difficulty Seeing? No MIGRATION.12682 55170 Information not available 04/20/2022 What Is Your Level Of Caffeine Consumption? Occasional MIGRATION.66004 67146 Information not available 04/20/2022 How Much Tobacco Do You Chew? None MIGRATION. 69231 Information not available 04/20/2022 In The 14 Days Before Symptom Onset, Have You Had Close Contact With A Laboratory-confir med COVID-19 While That Case Was Ill? No MIGRATION.72043 23289 Information not available 04/20/2022 In The 14 Days Before Symptom Onset, Have You Had Close Contact With A Person Who Is Under Investigation For COVID-19 While That Person Was Ill? No MIGRATION.41430 45237 Information not available 04/20/2022 Are You Deaf Or Do You Have Serious Difficulty Hearing? No MIGRATION.46794 73892 Information not available 04/20/2022 What Type Of Diet Are You Following? REGULAR MIGRATION.04349 89166 Information not available 04/20/2022 Which Illicit Or Recreational Drugs Have You Used? None MIGRATION.13722 89070 Information not available 04/20/2022 Do You Have An Electrostatic Air Filter? No MIGRATION.43289 41731 Information not available 04/20/2022 Do You Have A Humidifier? Yes MIGRATION.01959 71436 Information not available 04/20/2022 Do You Use Insect Repellent Routinely? Yes MIGRATION.15439 47638 Information not available 04/20/2022 Do You Have A Medical Power Of Station Cleaning Porter? Yes MIGRATION.27027 71919 Information not available 04/20/2022 Do You Have Moisture Problems In Your Home? No MIGRATION.25597 10205 Information not available 04/20/2022 What Was The Date Of Your Most Recent Tobacco Screening? 09/05/2024 Information not available 09/05/2024 Do You Have Any Pets? Yes MIGRATION.24648 69351 Information not available 04/20/2022 What Is Your Relationship Status? Information not available 04/15/2024 Do You Use Your Seat Belt Or Car Seat Routinely? Yes Information not available 03/07/2024 Do You Have Smoke And Carbon Monoxide Detectors In Your Home? Yes MIGRATION.32323 61797 Information not available 04/20/2022 Are You Passively Exposed To Smoke? No MIGRATION.53253 09081 Information not available 04/20/2022 How Much Tobacco Do You Smoke? No MIGRATION.11620 15249 Information not available 04/20/2022 Do You Use Sunscreen Routinely? Yes MIGRATION.65423 44910 Information not available 04/20/2022 Have You Recently Traveled Abroad? No MIGRATION.67683 20926 Information not available 04/20/2022 Do You Have Difficulty Walking Or Climbing Stairs? No Running Into [facility] Pt Stated MIGRATION.23800 88350 Information not available 04/20/2022 Do You Have Any Dietary Restrictions? No Information not available 04/15/2024 Sex: Unknown Functional Status Question Answer Note LastModified by Organizat ion Details LastModified Time Do you or have you ever used smokeless tobacco? Never used smokeless tobacco MIGRATION.00363 65894 Information not available 04/20/2022 Are you currently employed? No Information not available 04/15/2024 Have you been exposed to chemicals or toxins? No not that aware of Information not available 04/15/2024 Do you have transportation difficulties? No MIGRATION.44538 92028 Information not available 04/20/2022 Are you able to care for yourself independently? Yes MIGRATION.13409 74243 Information not available 04/20/2022 Do you have difficulty dressing, bathing, grooming, or toileting? No MIGRATION.80213 62552 Information not available 04/20/2022 Do you or have you ever used e-cigarettes or vape? Never used electronic cigarettes MIGRATION.81400 53674 Information not available 04/20/2022 What is your exercise level? None MIGRATION.76830 04042 Information not available 04/20/2022 Do you use any illicit or recreational drugs? No MIGRATION.11983 04213 Information not available 04/20/2022 Do you or have you ever used any other forms of tobacco or nicotine? Yes vape 0 nicotine MIGRATION.40873 92379 Information not available 04/20/2022 What is your level of alcohol consumption? None MIGRATION.28422 24488 Information not available 04/20/2022 Are you able to walk independently without assistance or assistive devices? YESWOREST MIGRATION.39582 44177 Information not available 04/20/2022 Do you have difficulty doing errands alone? No MIGRATION.03150 27181 Information not available 04/20/2022 What is your occupation? retired MIGRATION.88125 28228 Information not available 04/20/2022 Mental Status Question Answer Note LastModified by Organizat ion Details LastModified Time Do you feel stressed (tense, restless, nervous, or anxious, or unable to sleep at night)? [id number] MIGRATION.77663198 26 Information not available 04/20/2022 Do you have difficulty concentrating, remembering or making decisions? No MIGRATION.81719754 26 Information not available 04/20/2022 Family History Relationship Description Onset Age of this Age Resolved Age Notes LastModified by Organization Details LastModified Time Mother Kidney disease [email or web address] Not available 2023 09:14:35 Notes:cancer-mother Medical History Condition Response SKIN PROBLEMS Y USE OF NSAIDS Y DIABETES, TYPE Y Gynecological History Statement/Question Response How many [...] [facility] 11/24/2023 08:45:19 Influenza, split virus, quadrivalent, PF 0 completed Not Available [facility] 12/25/2024 10:03:09 COVID-19, mRNA, LNP-S, PF, 30 mcg/0.3 mL dose 1 completed Not Available [facility] 12/25/2024 10:03:09 COVID-19, mRNA, LNP-S, PF, 30 mcg/0.3 mL dose 1 completed Not Available [facility] 12/25/2024 10:03:09 zoster recombinant 1 completed Not Available [facility] 12/25/2024 10:03:09 COVID-19, mRNA, LNP-S, PF, 30 mcg/0.3 mL dose 1 completed Not Available [facility] 12/25/2024 10:03:09 zoster recombinant 1 completed Not Available [facility] 12/25/2024 10:03:09 pneumococcal polysaccharide PPV23 1 completed Not Available [facility] 12/25/2024 10:03:09 COVID-19, mRNA, LNP-S, PF, 30 mcg/0.3 mL dose, shoaib-sucrose 2 completed Not Available [facility] 12/25/2024 10:03:09 influenza, unspecified formulation 3 completed Not Available [facility] 12/25/2024 10:03:09 influenza, unspecified formulation 4 completed Not Available [facility] 12/25/2024 10:03:09 Influenza, split virus, trivalent, preservative 3 completed [...] virus, trivalent, preservative 3 completed Not Available [facility] 04/20/2022 01:01:48 Influenza, high-dose, quadrivalent, PF 1 completed Not Available [facility] 04/20/2022 01:01:49 pneumococcal polysaccharide PPV23 0 completed Not Available [facility] 04/20/2022 01:01:49 Pneumococcal conjugate PCV 13 8 completed Not Available [facility] 04/20/2022 01:01:49 Influenza, split virus, quadrivalent, PF 7 completed Not Available [facility] 04/20/2022 01:01:49 Influenza, split virus, quadrivalent, PF 8 completed Not Available [facility] 04/20/2022 01:01:49 Tdap 4 completed Not Available [facility] 04/20/2022 01:01:49 Tdap 4 completed Katelyn Pearson RN [facility], [place] - [facility] [email or web address] [facility] 10/24/2023 09:34:20 Past Encounters Encounter ID Performer Location Encounter Start Date Encounter Closed Date Diagnosis/Indication Diagnosis SNOMED-CT Code Diagnosis ICD10 Code Diagnosis IMO Codes Diagnosis Note [id number] MARION Sterling [address] [address] 12/02/2024 16:04:39 12/02/2024 16:14:09 [id number] MARION Sterling [address] [place] [address] 12/25/2024 10:00:45 12/25/2024 10:40:47 Anxiety 24612651 F41.[address] refill: 12/13/24UD S UTDlast appt: 12/25/24ne xt appt: 3 months, sooner if needed Screening for osteoporosis 005327112 Z13.820 380085 Diabetes mellitus 930811 09 E11.9 Sees Endocrinol ogy Health Concerns Section Related Observation LastModified by Organization Detai ls LastModified Time None Recorded Concern Status LastModified by Organization Details LastModified Time None Recorded Payers Encounter Date Sequence Insurance Name Policy Number Policy Benoit Covered Member ID Benoit Member ID Guarantor Name 12/25/2024 1 [employer] (MEDICARE REPLACEMENT/ ADVANTAGE - PPO) [id number] Yaneth Duarte [id number] Yaneth Duarte Notes Date Note Type Note Provider Name and Address Organization Details Recorded Time 12/25/2024 text/html Patient is a 69 year old female that presents to the office for 3 month medication follow up. Patient reports she is doing well on current medications.Patient has had increased urination at bedtime, has attempted to contact color grinder for follow up due to previous urinalysis results and has been unable to reach the office. Jess Lima, INTERNAL AFFAIRS COMMANDER-C [address] [facility], [facility] [address], [place], [address], [facility] [employer] 12/25/2024 10:27:24 OBGyn Episode No OBEpisode recorded.
--- OUTSIDE RECORDS SUMMARY | 2025-01-14 20:02 | XMS_ITS | Encounter Summary ---
Author Organization [facility] Healthcare Address [address] [place] [address] Care Team Providers Care Payroll Associate Name Role Phone Cammie Woodruff OD Unavailable [phone] Carline Ramires HOME VISITOR HOME BASE HEAD START Primary Care Provider [phone] Osmany Foster MD Unavailable [phone] Jess Lima HOME VISITOR HOME [employer] START Primary Care Provider Encounter Details Date Type Department Care Team (Late st Contact Info) Description 02/10/2024 Orders Only [facility] Health Information Management [address] [place] [id number] Scanning, Provider Social History Tobacco Use Types [...] on file Legal Sex Female 3:03 AM PARK INTERPRETER Gender Identity Not on file Sexual Orientation [...] COVID: Suspected 04/02/2024 04/02/2024 04/02/2024 4:01 PM PARK INTERPRETER COVID: Suspected 04/02/2024 04/02/2024 04/02/2024 10:42 PM PARK INTERPRETER Influenza, adult 04/02/2024 04/02/2024 04/09/2024 3:07 AM PARK INTERPRETER documented as of this encounter Care Teams Payroll Associate Relationship Specialty Start Date End Date Carline Ramires NP [address] [facility] [address] [place] [address] PCP - General Family Medicine 08/18/23 04/09/24 Jess Lima NP [address] [place] [address] PCP - General Family Medicine 04/10/24 Cammie Woodruff OD [address] [place] [address] Optometry 03/13/19 Osmany Foster MD [address] [place], [place] [id number] Referring Physician Gastroenterology 08/18/23 [facility] Endocrinology 08/18/23 documented as of this encounter
--- OUTSIDE RECORDS SUMMARY | 2025-01-14 20:02 | XMS_ITS | Clinical Summary ---
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 [...] Immunization Administration Dates Next Due COVID-19 mRNA ([employer]) 0.3 m L (30 mcg) vaccine (12 years and up) 12/08/2022 Hep A / Hep B 05/31/2021 Influenza, Quadrivalent, Karina l Culture-based MDCK, Preservative Free, Antibiotic Free, Intramuscular 11/20/2018 Influenza, Quadrivalent, Hig h Dose, Preservative Free, Intrr 12/08/2022,11/23/2021,11/10/2020 Influenza, Quadrivalent, Spl it, Preservative Free, Intramuscular 11/13/2019,11/09/2017,12/20/2016 Influenza, Trivalent, IM (MDV) 12/20/2012,2012 Influenza, Trivalent, Preser vative Free, Intramuscular 12/17/2012 Influenza, Unspecified 11/21/2023,02/20/2023,02/2022 Responsive Sports Sars-Cov-2 Bivalent V accination (12+ YRS) 11/23/2021 [...] murmur heart murmur Depression Depression Diabetes mellitus Diabetes Anxiety disorder Anxiety Hx Other Medical [...] file Legal Sex 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 Gender Identity Not on file Sexual Orientation [...] Foot Exam 1955 Well Visit 65+ 12/06/2019 Breast Cancer Screening-Mammogram 02/17/2024 023 Dilated Eye Exam 02/17/2024 02/16/2023, 10/31/2022 Albumin Creatinine Ratio, Urine 08/17/2024 4 Depression Screening 09/03/2024 09/04/2023, 08/18/19 24 Covid-19 Vaccine (2024-03 6 season) 2024 12/08/2022, 11/23/2021, 05/31/2021, Additional history exists Influenza Vaccine (#1) 2024 , 11/21/2023, 02/20/2023, Additional history exists Hemoglobin A1C 11/02/2024 05/02/2024, 08/18/2023 eGFR 05/02/2025 05/02/2024, /06/2023, 08/18/2023 Fall Risk Assessment 05/21/2025 05/21/2024, 08/18/19 [...] Completed 08/18/2023 Medical Devices Implanted Type Area Camera Repair Technician Device Identifier Shelf Expiration Date Model / Serial / Lot [employer] Implant Pin Kit Glenoid Ar-9607s - [id number] Implanted:Qty: 1 on 05/20/2024 by Kimani Lopez MD at [facility] Left: Shoulder [employer] 02/20/2028 AR-9607S / / [id number] [employer] Arthrex Univers Revers 36mm Suture Cup Humeral Sterile Latex Free Mt-9829r-[id number] - [id number] Implanted:Qty: 1 on 05/20/2024 by Kimani Lopez MD at [facility] Left: Shoulder [employer] [id number] 01/19/2029 ALEXIS-9502F- 36CPC .[id number] [employer] Univers Revers 36mm Shoulder +3mm Small Insert Humeral Sterile Ar-9503s-03 - [id number] Implanted:Qty: 1 on 05/20/2024 by Kimani Lopez MD at [facility] Left: Shoulder [employer] [id number] 08/19/2028 AR-9503S- .[id number] [employer] Baseplate 24mm 10 Deg Full Augment 2 Lateralized Nn-3321-8028-2s - [id number] Implanted:Qty: 1 on 05/20/2024 by Kimani Lopez MD at [facility] Left: Shoulder [employer] [id number] 01/19/2029 AR-9580-2 410-2S / / [id number] [employer] Univers Revers 25mm Modular Post Component Glenoid Porous Ar-9582-25 - [id number] Implanted:Qty: 1 on 05/20/2024 by Kimani Lopez MD at [facility] Left: Shoulder [employer] [id number] 08/19/2028 AR-9582-2 5 / / [id number] [employer] 36mm 24 Baseplate Taper Sphere Glenoid Ft-2106-9452 - [id number] Implanted:Qty: 1 on 05/20/2024 by Kimani Lopez MD at [facility] Left: Shoulder [employer] [id number] 11/19/2028 AR-9564-2 436 / / [id number] [employer] 4.5mm 32mm Peripheral Screw Bone Sterile Mf-5456-65hl - [id number] Implanted:Qty: 1 on 05/20/2024 by Kimani Lopez MD at [facility] Left: Shoulder [employer] [id number] 04/19/2028 AR-9562-3 2NL / / [id number] [employer] 4.5mm 32mm Peripheral Screw Bone Sterile Uv-3330-76uj - [id number] Implanted:Qty: 1 on 05/20/2024 by Kimani Lopez MD at [facility] Left: Shoulder [employer] [id number] 10/20/2028 AR-9562-3 2NL / / [id number] [employer] Screw Glenoid Locking Reverse Univers Revers 5.5x20mm Titanium Ar-9563-20 - [id number] Implanted:Qty: 1 on 05/20/2024 by Kimani Lopez MD at [facility] Left: Shoulder [employer] [id number] 09/19/2028 AR-9563-2 0 / / [id number] [employer] Screw Glenoid Locking Reverse Univers Revers 5.5x20mm Titanium Ar-9563-20 - [id number] Implanted:Qty: 1 on 05/20/2024 by Kimani Lopez MD at [facility] Left: Shoulder [employer] [id number] 09/19/2028 AR-9563-2 0 / / [id number] [employer] Univers Revers Shoulder 6 Stem Humeral Sterile Ar-9501-06s - [id number] Implanted:Qty: 1 on 05/20/2024 by Kimani Lopez MD at [facility] Left: Shoulder [employer] [id number] 09/19/2028 AR-9501-0 6S / / [id number] Procedures Procedure Name Priority Date/Time Associated Diagnosis [...] Odonnell MD POINT OF CARE TEST ORDE RABERNA Final Result * eGFR (05/02/2024 2:54 PM [...] ORDERAB LES Final Result Performing Organization Address City/[facility] [[email or web address]] de Phone Number [facility] [address] [place] [address] * (ABNORMAL) Hemoglobin A1c (05/02/2024 2:54 PM CDT) [facility] Hgb A1C 7.0(H) 4.0 - 5.6 % Estimated Average Glucose 154 mg/dL [facility] Comment: The ADA recommends reporting an estimated Average Glucose (eAG) with all Hemoglobin A1c results using the equation derived from a study of 507 normal and diabetic adults. Minority populations were underrepresented and children were not included. (Diabetes Care 31:2999-6358, 2008). The eAG is not equivalent to a fasting glucose. Blood 05/02/2024 2:54 PM CDT 05/02/2024 2:54 PM CDT Seema Medrano GOVERNMENT PROGRAM MANAGER LAB BLOOD ORDERAB LES Final Result Performing Organization Address [facility] de Phone Number [facility] [address] [place] [address] * Hepatitis C antibody Blood (08/18/2023 11:21 AM CDT) [facility] Hep C Ab Nonreactive Nonreactive Comment: Interpretive [...] CDT 08/18/2023 4:02 PM CDT Carline Ramires GOVERNMENT PROGRAM MANAGER LAB MICROBIOLOGY - GENERAL ORDER JEREMIAH Final Result Performing Organization Address [facility] Co de Phone Number [facility] [address] Department [place] [address] * Albumin Creatinine Ratio, Urine (08/18/2023 11:21 [...] LAB URINE ORDERABLES Final Resul t MERY [address] Department [place] [address] * DIABETES EYE EXAM (10/31/2022 9:39 AM CDT) Historical Provider HEALTH MAINTENANCE Final Result * COLONOSCOPY (06/30/2022 12:57 PM CDT) Historical Provider HEALTH MAINTENANCE Final Result from Last 3 Months or Most Recently Relevant to Health Maintenance Insurance T MEDICARE [employer] MEDICARE Advance Directives For more information, please contact: [phone] * Full Code (Latest Code Status on File) Date Activated Date Inactivated Comments 05/20/2024 2:44 PM 05/21/2024 5:20 PM Care Teams Interactive Media Marketing Specialist Relationship Specialty Start Date End Date Jess Lima NP [address] [place] [address] PCP - General Family Medicine 04/10/24 Cammie Woodruff OD [address] [place] [address] Optometry 03/13/19 Osmany Foster MD [address] [place] [address] Referring Physician Gastroenterology 08/18/23 [facility] Endocrinology 08/18/23
--- OUTSIDE RECORDS SUMMARY | 2025-01-14 20:02 | XMS_ITS | Data Portability ---
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 Name Role Phone MARION GREGG ZACHARY Primary Care Provider [phone] MARION GREGG ZACHARY Referring Provider [phone] Assessment Encounter Date Assessment Date Assessment LastModified by Organization Details LastModified Time 09/05/2024 09/05/2024 Assessment: Mild OSAHS, AHI = 9 Nicotine smoke: 1 ppd 7581-6325 = 34 pack years; vaping without nicotine until 02/2024 Bullous emphysema 7 mm RUL nodule Plan: The following were reviewed and explained to the patient: [facility] home sleep study 06/23/21 AHI = 9, supine AHI = 10 [facility] titration sleep study 08/17/21 sleep onset = 14.5 minutes, REM onset = none, Respironics medium DreamWisp nasal mask @ 10 cmH2O, PLMI =10 [facility] split night sleep study 01/02/23 sleep onset = 5 minutes, AHI = 12, ResMed medium AirFit F30i full face mask @ 12 cmH2O, PLMI = 28 [facility] titration sleep study 05/10/23 sleep onset = 87 minutes, REM onset = 310 minutes, ResMed medium AirFit F30 full face mask @ 11 cmH2O, PLMI = 0.[address] 09/15/20 bullous emphysema, [address] 10/06/21 bullous emphysema, 7 mm RUL nodule Chest CT 02/09/24 bullous emphysema, cardiomegaly, no P.E[facility] 02/10/24-02/13/24 NSTEMI, CHF Lab data 03/07/24 [...] none Keep ramp off. 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 Keep humidifier level at 7. Patient is [...] Time Details Appointments Any 30 2025 10:00A M Jess Lima NP Not available Not available Not available Lab glycohemo globin, total, blood 2024 [facility] (Lab), [address] [place], [address], 12/26/2024 05:30:47 urinalysi s, dipstick 2024 [facility] [address], [place], [address], 09/18/2024 10:35:16 Referral None recorded. Procedures None recorded. Surgeries None recorded. Imaging DEXA, axial skeleton 2024 [facility] ([facility] Sched[facility]), [address] [place], [address], 12/25/2024 14:16:25 Medication Orders alprazola m 2 mg tablet 2024 [facility], [address] [place] [address], [address], 12/25/2024 10:26:17 hydrocodo ne 7.5 mg-acetam inophen 300 mg tablet [email or web address] [place] [address], [address] [place] [address], [address], 09/04/2024 12:14:18 hydrocodo ne 7.5 mg-acetam inophen 325 mg tablet [email or web address], [address] [place] [address], [address], 09/05/2024 09:14:02 Patient TargetsNo targets recorded. Patient Instructions Encounter Date Encounter Id Patient Instructions Last Modified By Organization Details Last Modified Time 09/05/2024 [id number] methacholine challenge* - Please call patient to schedule. NPAN [id number] per [facility]. [email or web address] Not available 09/05/2024 16:18:00 Reason for Referral None Reported. Results Created Date Observation Date Name Description Value Unit Range Abnormal Flag Note LastModifiedBy Organization Detail LastModifiedTime 09/19/19 25 09/18/2024 urina lysis , dipst ick Leukocytes (reference range: negative ankit/ l) Negati ve Not Available [address], [place], [address], 09/18/2024 10:24:37 09/19/19 25 09/18/2024 urina lysis , dipst ick Nitrite (reference rage: negative mg/dl) positi ve Not Available [address], [place], [address], 09/18/2024 10:24:37 09/19/19 25 09/18/2024 urina lysis , dipst ick Urobilinogen (reference range: 0.2-1 mg/dl) 0.2 Not Available [address], [place], [address], 09/18/2024 10:24:37 09/19/19 25 09/18/2024 urina lysis , dipst ick Protein (reference range: negative mg/dl) Negati ve Not Available [address], [place], [address], 09/18/2024 10:24:37 09/19/19 25 09/18/2024 urina lysis , dipst ick pH (reference range: 5-7) 5.5 Not Available [address], [place], [address], 09/18/2024 10:24:37 09/19/19 25 09/18/2024 urina lysis , dipst ick Blood (reference range: negative Darrius/ l) Negati ve Not Available [address], [place], [address], 09/18/2024 10:24:37 09/19/19 25 09/18/2024 urina lysis , dipst ick Specific Mohler (reference range: 1.005-1.030) 1.010 Not Available [address], [place], [address], 09/18/2024 10:24:37 09/19/19 25 09/18/2024 urina lysis , dipst ick Ketone (reference range: negative mg/dl) Negati ve Not Available [address], [place], [address], 09/18/2024 10:24:37 09/19/19 25 09/18/2024 urina lysis , dipst ick Bilirubin (reference range: negative mg/dl) Negati ve Not Available [address], [place], [address], 09/18/2024 10:24:37 09/19/19 25 09/18/2024 urina lysis , dipst ick Glucose (reference range: negative mg/dl) 1000 Not Available [address], [place], [address], 09/18/2024 10:24:37 09/19/19 25 09/18/2024 urina lysis , dipst ick Appearance Clear Not Available [address], [place], [address], 09/18/2024 10:24:37 09/19/19 25 09/18/2024 urina lysis , dipst ick Color Yellow Not Available [address], [place], [address], 09/18/2024 10:24:37 12/03/1912/02/2024 urina lysis , dipst ick Leukocytes (reference range: negative ankit/ l) Trace Not Available [address], [place], [address], 12/02/2024 16:04:39 12/03/1912/02/2024 urina lysis , dipst ick Nitrite (reference rage: negative mg/dl) negati ve Not Available [address], [place], [address], 12/02/2024 16:04:39 12/03/1912/02/2024 urina lysis , dipst ick Urobilinogen (reference range: 0.2-1 mg/dl) 0.2 Not Available [address], [place], [address], 12/02/2024 16:04:39 12/03/1912/02/2024 urina lysis , dipst ick Protein (reference range: negative mg/dl) Negati ve Not Available [address], [place], [address], 12/02/2024 16:04:39 12/03/1912/02/2024 urina lysis , dipst ick pH (reference range: 5-7) 6.0 Not Available [address], [place], [address], 12/02/2024 16:04:39 12/03/1912/02/2024 urina lysis , dipst ick Blood (reference range: negative Darrius/ l) Negati ve Not Available [address], [place], [address], 12/02/2024 16:04:39 12/03/1912/02/2024 urina lysis , dipst ick Specific Mohler (reference range: 1.005-1.030) 1.005 Not Available [address], [place], [address], 12/02/2024 16:04:39 12/03/1912/02/2024 urina lysis , dipst ick Ketone (reference range: negative mg/dl) Negati ve Not Available [address], [place], [address], 12/02/2024 16:04:39 12/03/1912/02/2024 urina lysis , dipst ick Bilirubin (reference range: negative mg/dl) Negati ve Not Available [address], [place], [address], 12/02/2024 16:04:39 12/03/1912/02/2024 urina lysis , dipst ick Glucose (reference range: negative mg/dl) 1000 Not Available [address], [place], [address], 12/02/2024 16:04:39 12/03/1912/02/2024 urina lysis , dipst ick Appearance Clear Not Available [address], [place], [address], 12/02/2024 16:04:39 12/03/1912/02/2024 urina lysis , dipst ick Color Pale Yellow Not Available [address], [place], [address], 12/02/2024 16:04:39 08/12/19 25 08/11/2024 XR, hand, 3 or more view No observ ation record ed. [facility] [address], [place], [address], 08/12/2024 10:25:44 09/07/19 25 09/06/2024 CT, head + brain , w/wo contr ast No observ ation record ed. [facility] [address], [place], [address], 09/10/2024 10:09:14 Result Notes None recorded. Problems Name Problem SNOMED Code Status Onset Date Resolution Date Notes Provider Name and Address Organization Details Recorded Time Bipolar disorder 25813211 Active Ronny Fulton MD [address], [place], [address], [employer] 12:21:43 Calcific tendinitis of shoulder [id number] Hui Fulton MD [address], [place], [address], [employer] 12:21:41 Attention deficit hyperactivity disorder, predominantly inattentive type 00258912 Active Ronny Fulton MD [address], [place], [address], [employer] 12:21:45 Osteoarthritis [id number] Hui Fulton MD [address], [place], [address], [employer] 5 12:21:20 Essential hypertension [id number] Hui Fulton MD [address], [place], [address], [employer] 12:21:32 Allergic rhinitis 70650666 Hui Fulton MD [address], [place], [address], [employer] 12:21:57 Diabetes mellitus 50800118 Active MARION Sterling [address], [place], [address], 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 5 12:21:18 Ex-smoker 1856006 Active Ronny Fulton MD [address], [place], [address], [employer] 5 12:21:30 Obstructive sleep apnea syndrome 45636263 Active 2021 Ronny Fulton MD [address], [place], [address], [employer] 5 12:21:22 Chronic ulcerative proctitis 99594782 Active 2022 Ronny Fulton MD [address], [place], [address], [employer] 5 12:21:40 Vitamin D deficiency 44654178 Active 2022 Ronny Fulton MD [address], [place], [address], [employer] 5 12:21:17 Hyperlipidemia 13628469 Active 2022 Ronny Fulton MD [address], [place], [address], [employer] 5 12:21:27 Mixed anxiety and depressive disorder 561216194 Active 2022 Ronny Fulton MD [address], [place], [address], [employer] 5 12:21:24 Iron deficiency 73800740 Active 2023 Ronny Fulton MD [address], [place], [address], [employer] 5 12:21:25 Cobalamin deficiency 238599588 Active 2023 Ronny Fulton MD [address], [place], [address], [employer] 5 12:21:35 Closed fracture of proximal phalanx of little finger 176208999 Active 2024 Ronny Fulton MD [address], [place], [address], [facility] [employer] [facility] 5 12:21:38 Acute cough Active 2024 MARION Sterling [address], [place], [address], [facility] [employer] [facility] 5 14:49:05 Dysuria 51566758 Active 2024 Bailee Perez RN null, [facility] [employer] [facility] 5 16:04:40 Anxiety 60735294 Active 2024 MARION Sterling [address], [place], [address], [facility] [employer] [facility] 5 10:15:05 Notes:Medical History: Anxie ty/Bipolar depression/ADHD Nasoseptal [...] 1987, 1988 Bladder suspension 1987 Bladder revision 1988 WIL 1988 Left knee replacement 2004 Right knee replacement 2007 Colonoscopy 2022 Sigmoidoscopy with polypectomy 2023 Cardiac catheterization 2024 Left shoulder reverse replacement surgery 2024 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 Procedures Surgical History Date Name Laterality Status Provider Name and Address Organization Details Recorded Time 01/03/20 24 Ortho - Cortisone Injection completed Kathy Ross NP [address], [place], [address], [facility] [employer] [facility] 01/03/2024 15:00:40 12/13/19 24 Ortho - Cortisone Injection completed Flaco Denise MD [address], [facility] [address], [place], [address], [facility] [employer] [facility] [employer] [facility] 12/13/2023 10:33:59 07/05/19 24 Cortisone Injection (Dequervains/ Greater Trochantric/ Lateral Epicondylitis/ Shoulder/ Subacromial Space/ Knee or Trigger Finger) completed Laura Grider MD [address] [facility] [address], [place], [address], [facility] [employer] [facility] [employer] [facility] 07/05/2023 08:50:43 06/20/19 24 Transitional_Ca re_Management completed Ce Hector RN [place] [employer] [facility] 06/20/2023 16:41:15 01/05/20 23 Cortisone Injection (Dequervains/ Greater Trochantric/ Lateral Epicondylitis/ Shoulder/ Subacromial Space/ Knee or Trigger Finger) completed Larua Grider MD [address], [facility] [address], [place], [address], [facility] [employer] [facility] [employer] [facility] 01/19/2023 19:14:01 09/02/19 23 Cortisone Injection (Dequervains/ Greater Trochantric/ Lateral Epicondylitis/ Shoulder/ Subacromial Space/ Knee or Trigger Finger) completed SHARA Acosta [address], [facility] [address], [place], [address], [facility] [employer] [facility] [employer] [facility] 08/31/2022 08:22:44 07/01/19 23 Colonoscopy completed Hope Zamora LPN [employer] [facility] 06/30/2022 14:35:15 03/24/19 05 total shoulder replacement completed Irma Chua MA [employer] [facility] 09/05/2024 09:16:02 Knee Replacement completed Not Available [facility] 04/20/2022 00:47:57 procedure on urinary bladder completed Not Available [facility] 04/20/2022 00:47:57 Knee Replacement completed Not Available [facility] 04/20/2022 00:47:57 Imaging Results None recorded. Procedure Notes None recorded. Medical Equipment None Reported. Allergies Allergen ID Allergen Name Allergen Category Reaction Reaction Severity Criticality Documentation Date Start Date Code Code System Note Provider Name and Address Organization Details Recorded Time 1284 triamcino lone medicatio n Not available Not available Not available 04/20/2022 96209 RxNorm OINT Not Available [facility] 3 01:02:05 1285 codeine medicatio n itching Not available Not available 04/20/2022 2670 RxNorm Not Available [facility] 3 01:02:05 95167 Bactrim medicatio n Not available Not available Not available 09/04/2024 45899 9 RxNorm Ronny Fulton MD [address] [facility], [place], [address] [facility] L2 5 12:37:27 26538 sulfameth oxazole / trimethop rim medicatio n arthralgi a (joint pain) Not available [facility] 01/13/20252023 98175 RxNorm Not Available [employer] - External Data Service - prod 5 11:30:50 Medications Name Sig Start Date Stop [...] suspension for injection in office 03/01 completed [facility]: [id number] Not Available Not Available Not [...] propionate 50 mcg/actuat ion nasal spray,susp ension [place] 1 spray every day by intranasa l [...] Not Available Not Available Not Available Fluvirin 1209-0343 45 mcg (15 mcg x 3)/0.5 mL [...] Organization Details Last Updated DateTime 167.64 cm 27.1 kg/m2 42842.5 2 g 98.1 [degF] 77 /min 94 % 160/82 mm[Hg] RADHA Orozco [place] [facility] 11:11:55 Date Recorded Heart rate Heart rate Respiratory rate Provider Name and Address Organization Details Last Updated DateTime 09/05/2024 91 /min 91 /min 15 /min Ronny Fulton MD [address], [facility] [address], [place], [address], [facility] [employer] [facility] 09/05/2024 09:36:53 Date Recorded Body height Body mass index (BMI) Body weight Body temperature Oxygen saturation Systolic And Diastolic Provider Name and Address Organization Details Last Updated DateTime 167.64 cm 28.6 kg/m2 71200.8 5 g 98 [degF] 95 % 128/82 mm[Hg] Irma Chua MA [facility] [employer] [facility] 09:18:42 Date Recorded Body height Body mass index (BMI) Body weight Body temperature Heart rate Oxygen saturation Systolic And Diastolic Provider Name and Address Organization Details Last Updated DateTime 167.64 cm 29.1 kg/m2 36401.6 3 g 97.4 [degF] 90 /min 96 % 122/80 mm[Hg] Clifton Murdock RMA [facility] L2 09:47:12 Date Recorded Body height Provider Name an d Address Organization Details Last Updated DateTime 12/02/2024 167.64 cm Lizbeth Armenta [facility] [employer] [facility] 12/02/2024 16:13:41 Date Recorded Body height Body mass index (BMI) Body weight Body temperature Heart rate Oxygen saturation Systolic And Diastolic Provider Name and Address Organization Details Last Updated DateTime 167.64 cm 29.4 kg/m2 96497.8 1 g 97.6 [degF] 95 /min 94 % 128/88 mm[Hg] Clifton Murdock RMA [facility] [employer] [facility] 5 10:10:46 Social History Question Answer Notes LastModified by Organizat ion Details LastModified Time Tobacco Smoking Status Former Smoker Not Available [employer] 04/20/2022 00:45:45 Do You Have An Advance Directive? Yes MIGRATION.55419 [id number] Information not available 04/20/2022 Are You Blind Or Do You Have Difficulty Seeing? No MIGRATION.47617 99497 Information not available 04/20/2022 What Is Your Level Of Caffeine Consumption? Occasional MIGRATION.22144 06414 Information not available 04/20/2022 How Much Tobacco Do You Chew? None MIGRATION.50414 48607 Information not available 04/20/2022 In The 14 Days Before Symptom Onset, Have You Had Close Contact With A Laboratory-confir med COVID-19 While That Case Was Ill? No MIGRATION.46139 08876 Information not available 04/20/2022 In The 14 Days Before Symptom Onset, Have You Had Close Contact With A Person Who Is Under Investigation For COVID-19 While That Person Was Ill? No MIGRATION.06823 58334 Information not available 04/20/2022 Are You Deaf Or Do You Have Serious Difficulty Hearing? No MIGRATION.98811 28930 Information not available 04/20/2022 What Type Of Diet Are You Following? REGULAR MIGRATION.99933 99703 Information not available 04/20/2022 Which Illicit Or Recreational Drugs Have You Used? None MIGRATION.92148 96017 Information not available 04/20/2022 Do You Have An Electrostatic Air Filter? No MIGRATION.42080 45362 Information not available 04/20/2022 Do You Have A Humidifier? Yes MIGRATION.44389 89255 Information not available 04/20/2022 Do You Use Insect Repellent Routinely? Yes MIGRATION.98761 14679 Information not available 04/20/2022 Do You Have A Medical Power Of Bottle House Pumper? Yes MIGRATION.08510 05178 Information not available 04/20/2022 Do You Have Moisture Problems In Your Home? No MIGRATION.39160 40191 Information not available 04/20/2022 What Was The Date Of Your Most Recent Tobacco Screening? 09/05/2024 Information not available 09/05/2024 Do You Have Any Pets? Yes MIGRATION.59809 19235 Information not available 04/20/2022 What Is Your Relationship Status? Information not available 04/15/2024 Do You Use Your Seat Belt Or Car Seat Routinely? Yes Information not available 03/07/2024 Do You Have Smoke And Carbon Monoxide Detectors In Your Home? Yes MIGRATION.21756 86166 Information not available 04/20/2022 Are You Passively Exposed To Smoke? No MIGRATION.18712 57786 Information not available 04/20/2022 How Much Tobacco Do You Smoke? No MIGRATION.70952 52175 Information not available 04/20/2022 Do You Use Sunscreen Routinely? Yes MIGRATION.41193 48262 Information not available 04/20/2022 Have You Recently Traveled Abroad? No MIGRATION.21144 06478 Information not available 04/20/2022 Do You Have Difficulty Walking Or Climbing Stairs? No Running Into Things-clu msy Pt Stated MIGRATION.61584 78163 Information not available 04/20/2022 Do You Have Any Dietary Restrictions? No Information not available 04/15/2024 Sex: Unknown Functional Status Question Answer Note LastModified by Organizat ion Details LastModified Time Do you or have you ever used smokeless tobacco? Never used smokeless tobacco MIGRATION.32550 47201 Information not available 04/20/2022 Are you currently employed? No Information not available 04/15/2024 Have you been exposed to chemicals or toxins? No not that aware of Information not available 04/15/2024 Do you have transportation difficulties? No MIGRATION.09663 86960 Information not available 04/20/2022 Are you able to care for yourself independently? Yes MIGRATION.25209 39250 Information not available 04/20/2022 Do you have difficulty dressing, bathing, grooming, or toileting? No MIGRATION.45582 26439 Information not available 04/20/2022 Do you or have you ever used e-cigarettes or vape? Never used electronic cigarettes MIGRATION.01080 90494 Information not available 04/20/2022 What is your exercise level? None MIGRATION.09718 77655 Information not available 04/20/2022 Do you use any illicit or recreational drugs? No MIGRATION.49878 06661 Information not available 04/20/2022 Do you or have you ever used any other forms of tobacco or nicotine? Yes vape 0 nicotine MIGRATION.72824 81923 Information not available 04/20/2022 What is your level of alcohol consumption? None MIGRATION.58007 76980 Information not available 04/20/2022 Are you able to walk independently without assistance or assistive devices? YESWOREST MIGRATION.18481 92280 Information not available 04/20/2022 Do you have difficulty doing errands alone? No MIGRATION.06137 18334 Information not available 04/20/2022 What is your occupation? retired MIGRATION.20896 64136 Information not available 04/20/2022 Mental Status Question Answer Note LastModified by Organizat ion Details LastModified Time Do you feel stressed (tense, restless, nervous, or anxious, or unable to sleep at night)? GS1198-0 MIGRATION.[id number] 26 Information not available 04/20/2022 Do you have difficulty concentrating, remembering or making decisions? No MIGRATION.54076107 26 Information not available 04/20/2022 Family History [...] PF 3 completed Ce Hector RN null, [facility] [employer] [facility] 12/08/2022 11:49:45 COVID-19, mRNA, LNP-S, PF, shoaib-sucrose, 30 mcg/0.3 mL 3 completed Ce Hector RN null, [facility] [employer] [facility] 12/08/2022 11:50:25 RSV, recombinant, protein subunit RSVpreF, adjuvant reconstituted, 0.5 mL, PF 3 completed Ce Hector RN null, [facility] [employer] [facility] 01/09/2023 08:50:20 COVID-19, mRNA, LNP-S, PF, shoaib-sucrose, 30 mcg/0.3 mL 4 completed Bailee Perez RN null, [facility] [employer] [facility] 11/24/2023 08:40:45 Influenza, high-dose, trivalent, PF 4 completed Bailee Perez RN null, [facility] 11/24/2023 08:45:19 Influenza, split virus, quadrivalent, PF 0 completed Not Available [employer] 12/25/2024 10:03:09 COVID-19, mRNA, LNP-S, PF, 30 mcg/0.3 mL dose 1 completed Not Available [facility] 12/25/2024 10:03:09 COVID-19, mRNA, LNP-S, PF, 30 mcg/0.3 mL dose 1 completed Not Available [facility] 12/25/2024 10:03:09 zoster recombinant 1 completed Not Available [facility] 12/25/2024 10:03:09 COVID-19, mRNA, LNP-S, PF, 30 mcg/0.3 mL dose 1 completed Not Available [facility] 12/25/2024 10:03:09 zoster recombinant 1 completed Not Available [facility] 12/25/2024 10:03:09 pneumococcal polysaccharide PPV23 1 completed Not Available [facility] 12/25/2024 10:03:09 COVID-19, mRNA, LNP-S, PF, 30 mcg/0.3 mL dose, shoaib-sucrose 2 completed Not Available [facility] 12/25/2024 10:03:09 influenza, unspecified formulation 3 completed Not Available [facility] 12/25/2024 10:03:09 influenza, unspecified formulation 4 completed Not Available [facility] 12/25/2024 10:03:09 Influenza, split virus, trivalent, preservative 3 completed Melany Ruano CMA null, [facility] 09/01/2022 11:26:16 Influenza, split virus, trivalent, PF 3 completed Melany Ruano CMA null, [facility] 09/01/2022 11:26:16 Influenza, high-dose, quadrivalent, PF 2 completed Melany Ruano CMA null, [facility] 09/01/2022 11:26:16 COVID-19, mRNA, LNP-S, bivalent, PF, 30 mcg/0.3 mL dose 2 completed Melany Ruano CMA null, [facility] 09/01/2022 11:26:16 Hep A-Hep B 2 completed Melany Ruano CMA null, [facility] [employer] [facility] 09/01/2022 11:26:16 Influenza, split virus, trivalent, preservative 3 completed Not Available [facility] 04/20/2022 01:01:48 Influenza, high-dose, quadrivalent, PF 1 completed Not Available [facility] 04/20/2022 01:01:49 pneumococcal polysaccharide PPV23 0 completed Not Available [facility] 04/20/2022 01:01:49 Pneumococcal conjugate PCV 13 8 completed Not Available [facility] 04/20/2022 01:01:49 Influenza, split virus, quadrivalent, PF 7 completed Not Available [facility] 04/20/2022 01:01:49 Influenza, split virus, quadrivalent, PF 8 completed Not Available [facility] 04/20/2022 01:01:49 Tdap 4 completed Not Available [facility] 04/20/2022 01:01:49 Tdap 4 completed Katelyn Pearson RN null, [facility] [employer] [facility] 10/24/2023 09:34:20 Past Encounters Encounter ID Performer Location Encounter Start Date Encounter Closed Date Diagnosis/Indication Diagnosis SNOMED-CT Code Diagnosis ICD10 Code Diagnosis IMO Codes Diagnosis Note [id number] Laura Grider MD [facility] [address] [place] [address] [address] [place] [address] 04/28/2020 00:00:00 05/19/2020 18:02:06 [id number] Laura Grider MD [facility] Primary Care [facility] [address] [facility] [address] [place] [address] 08/05/2020 00:00:00 08/19/2020 10:29:43 [id number] Laura Grider MD [facility] Primary Care [facility] [address] [facility] [address] [place] [address] 11/10/2020 00:00:00 11/10/2020 12:10:22 [id number] Laura Grider MD [facility] Primary Care [place] [address] [place] [address] 01/21/2021 00:00:00 02/15/2021 20:18:01 [id number] Rony Steele MD [facility] Urology [address] [address] 02/01/2021 00:00:00 02/01/2021 09:50:16 [id number] Laura Grider MD [facility] Primary Care [place] [address] [place] [address] 03/15/2021 00:00:00 03/15/2021 11:19:29 [id number] Laura Grider MD [facility] Primary Care [place] [address] [place] [address] 04/21/2021 00:00:00 04/21/2021 09:50:14 [id number] Laura Grider MD [facility] Primary Care [place] [address] [place] [address] 04/27/2021 00:00:00 04/27/2021 12:50:56 [id number] Laura Grider MD [facility] Primary Care [place] [address] [place] [address] 05/25/2021 00:00:00 05/25/2021 09:37:56 [id number] Laura Grider MD [facility] Primary Care [place] [address] [place] [address] 06/24/2021 00:00:00 06/24/2021 09:20:45 [id number] SHARA Acosta [facility] Primary Care [place] [address] [place] [address] 09/20/2021 00:00:00 09/20/2021 09:44:35 [id number] Rony Porter MD [facility] Urology [address] [address] 09/30/2021 00:00:00 09/30/2021 11:32:16 [id number] Laura Grider MD [facility] Primary Care [place] [address] [place] [address] 10/06/2021 00:00:00 10/06/2021 09:00:46 [id number] Laura Grider MD [facility] Primary Care [place] [address] [place] [address] 12/13/2021 00:00:00 12/20/2021 16:32:54 [id number] SHARA Acosta [facility] Primary Care [place] [address] [place] [address] 12/14/2021 00:00:00 12/14/2021 09:15:49 [id number] SHARA Acosta [facility] Primary Care [place] [address] [place] [address] 12/28/2021 00:00:00 12/28/2021 09:28:37 [id number] SHARA Acosta [facility] Primary Care [place] [address] [place] [address] 01/05/2022 00:00:00 01/05/2022 11:11:29 [id number] Laura Grider MD [facility] Primary Care [place] [address] [place] [address] 02/09/2022 00:00:00 02/18/2022 10:23:37 [id number] SHARA Acosta [facility] Primary Care [place] [address] [place] [address] 03/22/2022 00:00:00 03/22/2022 09:27:18 [id number] Ronny Fulton MD [facility] [address] [place] [address] 04/05/2022 00:00:00 09/01/2022 12:31:55 [id number] Laura Grider MD [facility] Primary Care [address] [place] [address] 06/27/2022 09:30:47 06/27/2022 10:24:51 Attention deficit hyperactivity disorder 180186329 F90.9 stable, refill givenPt understand s this medication has risk for abuse/depe ndence and agrees to take it only as prescribed and to guard from loss/theft Essential hypertension 65074837 I10 Pain of ri ght shoulder joint 2495857770 4130752 M25.511 consent form signedrepe at injection performedp t tolerated well and was instructed to call if any s/s infection or worsening pain [id number] Laura Grider MD [facility] Primary Care [address] [place] [address] 07/19/2022 10:05:37 07/19/2022 11:27:58 Tear of skin 492029215 T14.8XXA healing wellwill treat with abx given her diabetes and the size of the woundsoap and water daily, avoid pools, hot tubs, recreation al water until healedkeep moist and covered during the day, ok to leave open at nightf/u prn [id number] Laura Grider MD [facility] Primary Care [address] [address] 09/01/2022 11:09:07 09/01/2022 11:52:37 Pain of right shoulder joint 4187567651 7509370 M25.511 Consent form signed, repeat injection performed. Pt tolerated well and was instructed to call if any s/s infection or worsening pain.Due to needing injection again within 3 months, I have advised to f/u with ortho if they continue to wear off quicker and quicker. [id number] Laura Grider MD [facility] Primary Care [address] [place] [address] 10/10/2022 09:38:55 10/10/2022 10:03:58 Chronic ulcerative proctitis 42282402 K51.[address] Cody lutz steroid suppositor yNow on mesalamine Diabetes mellitus 106298 09 E11.[address] Neal Essential hypertension 78917845 I10 Fatigue 47656965 R53.83 D64.9 Pain of sh oulder region 14562438 M25.519 refill given Vitamin D deficiency 347 25209 E55.9 Hyperlipidemia 14425680 E78.5 [id number] Laura Grider MD [facility] Primary Care [facility] [address] [facility] [address] [place] [address] 10/18/2022 14:01:58 10/18/2022 14:43:19 Fever 965233084 R50.9 check UAlabs drawn earlier this AMlikely viral syndromeca ll if no improvemen t or sooner if neededsu [facility] [id number] Laura Grider MD [facility] Primary Care [facility] [address] [facility] [address] [place] [address] 10/27/2022 10:31:31 10/27/2022 13:27:01 Cough 00277726 R05.9 cxr showed no acute issuesneg covid testcheck labs including d-dimerpt with persistent fatigue, cough, feverisho2 sat is consistent with her baseline, she is mildly tachycardi cpush fluids, rest, [facility] givenCT angiogram chest if d-dimer elevatedca ll/return if no improvemen t in 1-2 days or sooner if neededrevi ewed s/s that warrant urgent/bobby rgent eval in meantime [id number] Laura Grider MD [facility] Primary Care [facility] [address] [facility] [address] [place] [address] 12/20/2022 08:55:59 12/20/2022 09:43:21 Major depressive disorder 737778543 F32.9 Not in good controlcon tinue pristiq 100 mg dailyconti nue adderall 20 mg tidd/c aripiprazo letrial of vraylar 1.5 mg daily x 2 weeks then increase to 3 mg dailyrevie wed potential med s/ef/u in 4 weeks or sooner if needed Pain of ri ght shoulder joint 8496882545 9063881 M25.511 Prednisone taperheat, gentle stretching f/u in 2 weeks for injection if needed [id number] Laura Grider MD [facility] Primary Care [facility] [address] [facility] [address] [place] [address] 01/04/2023 16:58:47 01/05/2023 17:19:21 Pain of right shoulder joint 5472304692 2348218 M25.511 injection today, tolerated wellpost injection instructio ns givencan return for repeat injection in 3 months if needed [id number] Laura Grider MD [facility] Primary Care [facility] [address] [facility] [address] [place] [address] 01/18/2023 09:29:18 01/18/2023 09:53:52 Major depressive disorder 038330902 F32.9 Not in good controlcon tinue pristiq 100 mg dailyconti nue adderall 20 mg tidd/c aripiprazo letrial of vraylar 1.5 mg daily x 2 weeks then increase to 3 mg dailyrevie wed potential med s/ef/u in 4 weeks or sooner if needed update 01/18/23: increase vraylar 4.5 mg dailyf/u in 4 weeks Iron defic iency anemia 52359904 D50.9 cannot tolerate oral ironsees Katelin nt iron deficiency hematology referral given [id number] Laura Grider MD [facility] Primary Care [facility] [address] [facility] [address] [place] [address] 03/08/2023 08:40:16 03/08/2023 09:22:14 Major depressive disorder 042644146 F32.9 Not in good controlcon tinue pristiq [...] 4.5 mg daily Iron defic iency anemia 35986017 D50.9 cannot tolerate oral ironsees Katelin iron deficiency update 03/08/23: [facility] [id number] Laura Grider MD [facility] Primary Care [facility] [address] [facility] [address] [place] [address] 04/05/2023 16:39:50 04/05/2023 17:56:08 Pain of right shoulder joint 5573921166 3381816 M25.511 injection today, tolerated wellpost injection instructio ns givencan return for repeat injection in 3 months if needed [id number] Laura Grider MD [facility] Primary Care [address] [place] [address] 06/20/2023 16:31:44 06/20/2023 17:21:44 Transition of care 0368110592 105 Z75.8 Sepsis due to urinary tract infection 616883497 N39.0 reviewed notescardi ology does not think there was a cardiac eventurina ry sepsis, repeat labs [id number] Laura Grider MD [facility] Primary Care [address] [place] [address] 07/05/2023 08:10:44 07/05/2023 09:18:17 Laceration of right lower leg 3810926508 5757063 S81.811A keep elevatedso ap and water dailycall Monday if no improvemen t Pain of ri ght shoulder joint 1205534014 9476178 M25.511 injection today, tolerated wellpost injection instructio ns givencan return for repeat injection in 3 months if needed [id number] SONYA OrellanaP-C [facility] Primary Care [facility] [address] [facility] [address] [place] [address] 07/20/2023 14:30:03 07/20/2023 14:41:46 [id number] SONYA OrellanaP-C [facility] Primary Care [facility] [address] [facility] [address] [place] [address] 09/28/2023 09:30:51 09/28/2023 10:15:58 Dysuria 04144694 R30.0 urine dip positive for nitrites/l eukocytes Thyroid di sorder screening 832150781 Z13.29 Iron deficiency 13795074 E61.1 Anemia screening 8044768 07 Z13.0 Vitamin D deficiency 347 93196 E55.9 Long-term drug therapy 637017624 Z79.899 Pt denies any lending, selling, or borrowing of medication s. Denies any cp, sob, palpitatio ns, or unusual weight loss.Revie wed controlled substance agreement requiremen ts. Refill given.[place] PDMP checked today. [id number] MARION Orellana [facility] Primary Care [facility] [address] [facility] [address] [place] [address] 10/24/2023 08:49:31 10/24/2023 09:20:46 Administration of diphtheria, pertussis, and tetanus vaccine 363174790 Z23 will be having addition to the family within a monthtdap given Dysuria 53795459 R30.0 Attention deficit hyperactivity disorder 073333364 F90.9 [id number] SHARA Beck [facility] Primary Care [facility] [address] [employer] [address] [place] [address] 11/09/2023 08:55:46 11/09/2023 09:16:23 [id number] MARION Orellana [facility] Primary Care [facility] [address] [facility] [address] [place] [address] 11/23/2023 13:51:40 11/23/2023 15:16:42 Chronic obstructive pulmonary disease 99888004 J44.9 noting increased dyspneauna ble to wear cpap last nighttrial trelegy Seasonal allergy 3997404 04 J30.2 Cobalamin deficiency 190 132834 E53.8 Pain of ri ght shoulder joint 4669738955 1746448 M25.511 pt requesting shoulder injectiond eclines oral steroidsor tho referral giventrial lidocaine patches Referral needed 17110718 9 Z76.89 [id number] Flaco Denise MD [facility] [place] [address] [place] [address] 12/13/2023 08:53:32 12/13/2023 10:40:27 Bilateral shoulder joint pain 1222825660 1900323 M25.511 M25.322 [id number] MD BLAINE Joyce[facility] [place] [address] [facility] [address] [place] [address] 01/03/2024 09:22:30 01/03/2024 11:17:36 Pain of left shoulder joint 8681217973 4661282 M25.953 [id number] ROBIN Sterling-C [facility] [place] [address] [place] [address] 01/15/2024 14:31:36 01/15/2024 15:59:41 [id number] ROBIN Sterling-Unique [facility] [place] [address] [place] [address] 02/29/2024 08:53:08 02/29/2024 09:52:30 Obstructive sleep apnea syndrome 00415004 G47.33 Diabetes mellitus 616357 09 E11.9 Decrease Ozempic to 1mg every week.Disco ntinue Farxiga while we wait for update A1c. Pain of [facility] region 49893453 M25.[address] refill: 01/29/24UD S UTDlast appt: 02/29/24Pa tient will follow up in 3 months, sooner if needed. [id number] MD BLAINE Gordon_GMClaudia [address] [address] 03/07/2024 10:00:47 03/18/2024 13:37:06 Dyspnea on exertion 76250032 R06.09 R05.9 T78.40XA D89.9 [id number] MD BLAINE Gordon_GMClaudia Mae[address] [address] 04/15/2024 11:00:02 04/15/2024 12:12:19 Dyspnea on exertion 20861014 R06.09 R05.9 T78.40XA D89.9 Obstructiv e sleep apnea syndrome 62514558 G47.33 [id number] MARION Sterling [facility] Primary Care [address] [place] [address] 04/17/2024 09:14:42 04/17/2024 10:14:46 Diabetes mellitus 92798953 E11.9 Sees Endocrinol ogy Anxiety 91011499 F41.9 Will refill meds as listed below. Patient has not had meds filled since June as she uses them very sparingly. Patient reports the most she takes in one day is two tablets and that is very rare. Pain of ouer region 98577725 M25.519 Patient is scheduled for left shoulder replacemen t on 05/20/24 Vitamin B1 2 deficiency (non anemic) 41541599 E53.8 Pre-surger y evaluation 552264699 Z01.702 [id number] MARION Sterling [facility] Primary Care [address] [address] 06/17/2024 14:18:39 06/17/2024 14:49:25 [id number] MARION Sterling [facility] Primary Care [address] [place] [address] 08/08/2024 10:22:53 08/08/2024 10:50:49 Keeps falling asleep 017945533 G47.10 Z71.6 7151277432 Patient sleeps very well at night but falls asleep during the day for no reason. Patient reports she can be in the middle of talking and just fall asleep. Bipolar disorder 0381972 4 F31.9 Doing well on current medication s. Discussed potential med changes if issues with falling asleep during the day do not improve. Essential hypertension 61338990 I10 124/74.Con tinue with current medication s, will refill as needed. Obstructiv e sleep apnea syndrome 17549125 G47.33 Continues to wear CPAP as directed. Pain of oulder region 68563458 M25.519 Patient continues to see Ortho for bilateral shoulder pain, left shoulder surgery in April, follows up with Ortho in a couple of weeks.Cont inue with Tylenol and Ibuprofen- contact Ortho is pain worsens. [id number] MARION Sterling [facility] Primary Care [facility] [address] [facility] [address] [place] [address] 08/14/2024 10:53:51 08/14/2024 11:39:16 Closed fracture of proximal phalanx of little finger 820786923 S62.616A [id number] Discussed importance of following up with Ortho so fracture heals appropriat panda.Will treat severe pain as listed below. [id number] Ronny Fulton MD [facility] Pulmonolo gy [address] [place] [address] 09/05/2024 09:04:11 09/05/2024 13:12:50 Dyspnea on exertion 32544390 R06.09 R05.9 T78.40XA D89.9 Obstructiv e sleep apnea syndrome 71678164 G47.33 [id number] MARION Sterling [facility] Primary Care [address] [place] [address] 09/18/2024 09:21:13 09/18/2024 10:11:56 Dysuria 84937998 R30.0 84931 [id number] MARION Sterling [facility] Primary Care [address] [place] [address] 12/02/2024 16:04:39 12/02/2024 16:14:09 [id number] MARION Sterling [facility] Primary Care [address] [place] [address] 12/25/2024 10:00:45 12/25/2024 10:40:47 Anxiety 42137310 F41.[address] refill: 12/13/24UD S UTDlast appt: 12/25/24ne xt appt: 3 months, sooner if needed Screening for osteoporosis 130921729 Z13.820 738540 Diabetes mellitus 369227 09 E11.9 Sees Endocrinol ogy Health Concerns Section Related Observation LastModified by Organization David ls LastModified Time None Recorded Concern Status LastModified by Organization Details LastModified Time None Recorded Advance Directives Directive Y: Payers Insurance Date Sequence Insurance Name Policy Number Policy Benoit Covered Member ID Benoit Member ID Guarantor Name 12/22/2024 1 [employer] (MEDICARE REPLACEMENT/ ADVANTAGE - PPO) [id number] Yaneth Duarte [id number] Yaneth Duarte Notes Date Note Type Note Provider Name and Address Organization Details Recorded Time 08/14/2024 text/html ROS as noted in the HPI Patient is a 68 year old female that presents to the office for UC follow up. Patient tripped on a show on Monday and broke her right fifth digit. Patient went to UC on Monday, had x-rays completed, was placed in a temporary cast and instructed to follow-up with ortho. Patient reports she is not going to follow up with ortho because it is just her pinky finger and they won't do anything. Patient reports it is still very painful. Patient has some ROM. Patient denies numbness and tingling. MARION Sterling [address] [place] [address], [address], [place] [facility] [place] [employer] 08/14/2024 13:40:12 09/05/2024 text/html Primary care/Referring provider: MARION Brown Patient is here to go over her shortness of breath evaluation/management. Initial development of shortness of breath: 2013Duration of shortness of breath: 12 yearsCondition of shortness of breath: stableTiming of shortness of breath: noneFrequency: up to 1 time a dayLimits activities: yesAggravating factors: walking, lying downAlleviating factors: rest Modified [employer] [place] (mMRC) Dyspnea Scale - Grade 2Grade 0 [...] noEdema: no Environmental exposures:Nicotine smoke: 1 ppd 5429-9812 = 34 pack years; vaping without nicotine until 02/2024Paint: noDye: noDust mites: yesMold: noDamp basement: noWood burning stove: noAnimal dander: dogCockroaches: noPollen: yesArsenic: noAsbestos: noBeryllium: noCadmium: noChromium: noCoal smoke: noDiesel fumes: noNickel: noSilica: noSoot: no CC: The CPAP is blowing hard and the leak is coming out the side of my mouth. During the [facility] home sleep study on 06/23/21, AHI = [...] moderate chance of dozing. Ronny Fulton MD [address] [place], [address], [place] [employer] 09/05/2024 09:37:15 09/18/2024 text/html ROS as noted in the HPI Patient is a 68 year old female that presents to the office for acute visit.Patient reports dysuria started a few days ago. Denies flank pain and pelvic pain, vaginal pain and vaginal discharge. Patient denies hematuria. MARION Sterling [address], [place], [address], [place] [employer] 09/18/2024 12:49:40 12/25/2024 text/html Patient is a 69 year old female that presents to the office for 3 month medication follow up. Patient reports she is doing well on current medications.Patient has had increased urination at bedtime, has attempted to contact support associate for follow up due to previous urinalysis results and has been unable to reach the office. MARION Sterling [address], [place], [address], [place] [employer] 12/25/2024 10:27:24 OBGyn Episode No OBEpisode recorded.
--- OUTSIDE RECORDS SUMMARY | 2025-01-14 20:02 | XMS_ITS | Continuity of Care Document ---
Author Organization [facility] Primary Care [place] Address [address] [place] [address] Care Team Providers Care Field Education Coordinator Name Role Phone MARION GREGG ZACHARY Primary Care Provider MARION GREGG ZACHARY Referring Provider [phone] Assessment No assessment recorded. Plan of Treatment Reminders Order Date Submit Date Provider Last Modified By Organization Details Last Modified Time Details Appointments Any 30 026 10:00AM Jess Lima NP Not available Not available [...] range: negative ankit/ l) Trace Not Available [address], [place], [address], 12/02/2024 16:04:39 12/03/1912/02/2024 urina lysis , dipst ick Nitrite (reference rage: negative mg/dl) negati ve Not Available [address], [place], [address], 12/02/2024 16:04:39 12/03/1912/02/2024 urina lysis , dipst ick Urobilinogen (reference range: 0.2-1 mg/dl) 0.2 Not Available [address], [place], [address], 12/02/2024 16:04:39 12/03/1912/02/2024 urina lysis , dipst ick Protein (reference range: negative mg/dl) Negati ve Not Available [address], [place], [address], 12/02/2024 16:04:39 12/03/1912/02/2024 urina lysis , dipst ick pH (reference range: 5-7) 6.0 Not Available [address], [place], [address], 12/02/2024 16:04:39 12/03/1912/02/2024 urina lysis , dipst ick Blood (reference range: negative Darrius/ l) Negati ve Not Available [address], [place], [address], 12/02/2024 16:04:39 12/03/1912/02/2024 urina lysis , dipst ick Specific [place] (reference range: 1.005-1.030) 1.005 Not Available [address], [place], [address], 12/02/2024 16:04:39 12/03/1912/02/2024 urina lysis , dipst ick Ketone (reference range: negative mg/dl) Negati ve Not Available [address], [place], [address], 12/02/2024 16:04:39 12/03/1912/02/2024 urina lysis , dipst ick Bilirubin (reference range: negative mg/dl) Negati ve Not Available [address], [place], [address], 12/02/2024 16:04:39 12/03/1912/02/2024 urina lysis , dipst ick Glucose (reference range: negative mg/dl) 1000 Not Available [address], [place], [address], 12/02/2024 16:04:39 12/03/1912/02/2024 urina lysis , dipst ick Appearance Clear Not Available [address], [place], [address], 12/02/2024 16:04:39 12/03/1912/02/2024 urina lysis , dipst ick Color Pale Yellow Not Available [address], [place], [address], 12/02/2024 16:04:39 Result Notes None recorded. Problems Name Problem SNOMED Code Status Onset Date Resolution Date Notes Provider Name and Address Organization Details Recorded Time Bipolar disorder 40616330 Active Ronny Fulton MD [address], [place], [address], [employer] 12:21:43 Calcific tendinitis of shoulder 41563516 Hui Fulton MD [address], [place], [address], [employer] 12:21:41 Attention deficit hyperactivity disorder, predominantly inattentive type 27472915 Active Ronny Fulton MD [address], [place], [address], [employer] 5 12:21:45 Osteoarthritis 238728363 Hui Fulton MD [address], [place], [address], [facility] [place] [facility] 12:21:20 Essential hypertension 75463874 Active Ronny Fulton MD [address], [place], [address], [place] [facility] 12:21:32 Allergic rhinitis 62594976 Active Ronny Fulton MD [address], [place], [address], [facility] [place] [facility] 5 12:21:57 Diabetes mellitus 11184364 Active ROBIN Sterling-Unique [address], [place], [address], [facility] [place] [facility] 5 16:22:00 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 Ronny Fulton MD [address], [place], [address], [facility] [place] [facility] 5 12:21:18 Ex-smoker 0647019 Active Ronny Fulton MD [address], [place], [address], [facility] [place] [facility] 5 12:21:30 Obstructive sleep apnea syndrome 36363441 Active 2021 Ronny Fulton MD [address], [place], [address], [place] [facility] 5 12:21:22 Chronic ulcerative proctitis 47587755 Active 2022 Ronny Fulton MD [address], [place], [address], [facility] [place] [facility] 5 12:21:40 Vitamin D deficiency 37178849 Active 2022 Ronny Fulton MD [address], [place], [address], [place] [facility] 12:21:17 Hyperlipidemia 73489103 Active 2022 Ronny Fulton MD [address], [place], [address], [facility] [employer] [facility] 5 12:21:27 Mixed anxiety and depressive disorder 245352626 Active 2022 Ronny Fulton MD [address], [place], [address], [facility] [employer] [facility] 5 12:21:24 Iron deficiency 30164935 Active 2023 Ronny Fulton MD [address], [place], [address], [facility] [employer] [facility] 5 12:21:25 Cobalamin deficiency 291177798 Active 2023 Ronny Fulton MD [address], [place], [address], [facility] [employer] [facility] 5 12:21:35 Closed fracture of proximal phalanx of little finger 298151053 Active 2024 Ronny Fulton MD [address] [employer], [place], [address], [facility] [employer] [facility] 5 12:21:38 Acute cough Active 2024 MARION Sterling [address], [address] [employer], [place], [address], [facility] [employer] [facility] 5 14:49:05 Dysuria 16446081 Active 2024 Bailee Perez RN null, [facility] [employer] [facility] 5 16:04:40 Anxiety 49764802 Active 2024 MARION Sterling [address], [place], [address], [facility] [employer] [facility] 5 10:15:05 Notes:Medical History: Anxie ty/Bipolar depression/ADHD [...] surgery 2024 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 Procedures Surgical History Date Name Laterality Status Provider Name and Address Organization Details Recorded Time 01/03/20 24 Ortho - Cortisone Injection completed Kathy Ross NP [address], [place], [address], [employer] 01/03/2024 15:00:40 12/13/19 24 Ortho - Cortisone Injection completed Flaco Denise MD [address], [place], [address], [facility] [employer] 12/13/2023 10:33:59 07/05/19 24 Cortisone Injection (Dequervains/ Greater Trochantric/ Lateral Epicondylitis/ Shoulder/ Subacromial Space/ Knee or Trigger Finger) completed Laura Grider MD [address], [place], [address], [facility] [employer] 07/05/2023 08:50:43 06/20/19 24 Transitional_Ca re_Management completed Ce Hector RN [place] Brook [facility] [employer] 06/20/2023 16:41:15 01/05/20 23 Cortisone Injection (Dequervains/ Greater Trochantric/ Lateral Epicondylitis/ Shoulder/ Subacromial Space/ Knee or Trigger Finger) completed Laura Grider MD [address], [place], [address], [employer] 01/19/2023 19:14:01 09/02/19 23 Cortisone Injection (Dequervains/ Greater Trochantric/ Lateral Epicondylitis/ Shoulder/ Subacromial Space/ Knee or Trigger Finger) completed SHARA Acosta [address], [place], [address], [facility] [employer] [facility] 08/31/2022 08:22:44 07/01/19 23 Colonoscopy completed Hope Zamora LPN [facility] [employer] [facility] 06/30/2022 14:35:15 03/24/19 05 total shoulder replacement completed Irma Chua MA [facility] [employer] [facility] 09/05/2024 09:16:02 Knee Replacement completed Not Available [facility] 04/20/2022 00:47:57 procedure on urinary bladder completed Not Available [facility] 04/20/2022 00:47:57 Knee Replacement completed Not Available [facility] 04/20/2022 00:47:57 Imaging Results None recorded. Procedure Notes None recorded. Medical Equipment None Reported. Allergies Allergen ID Allergen Name Allergen Category Reaction Reaction Severity Criticality Documentation Date Start Date Code Code System Note Provider Name and Address Organization Details Recorded Time 1284 triamcino lone medicatio n Not available Not available Not available 04/20/2022 85472 RxNorm OINT Not Available [facility] 3 01:02:05 1285 codeine medicatio n itching Not available Not available 04/20/2022 2670 RxNorm Not Available [facility] 3 01:02:05 89625 Bactrim medicatio n Not available Not available Not available 09/04/2024 18639 9 RxNorm Ronny Fulton MD [address] [facility] [place] [address], [place], [address], [facility] [employer] [facility] 12:37:27 76178 sulfameth oxazole / trimethop rim medicatio n arthralgi a (joint pain) Not available low 01/13/20252023 41862 RxNorm Not Available [place] - External Data Service - prod 5 [...] suspension for injection in office 03/01 completed [facility]: [phone] Not Available Not Available [...] propionate 50 mcg/actuat ion nasal spray,susp ension [place] 1 spray every day by intranasa l [...] Not Available Not Available Not Available Fluvirin 4566-7668 45 mcg (15 mcg x 3)/0.5 mL [...] completed Not Available Not Available Not Available [employer] KwikPen U-100 Insulin 50 units 03/22 completed [...] Updated DateTime 12/02/2024 167.64 cm Lizbeth Armenta [place] [facility] 12/02/2024 16:13:41 Social History Question Answer Notes LastModified by Organizat ion Details LastModified Time Tobacco Smoking Status Former Smoker Not Available [facility] 04/20/2022 00:45:45 Do You Have An Advance Directive? Yes MIGRATION.75868 48487 Information not available 04/20/2022 Are You Blind Or Do You Have Difficulty Seeing? No MIGRATION.38079 11266 Information not available 04/20/2022 What Is Your Level Of Caffeine Consumption? Occasional MIGRATION.87226 18092 Information not available 04/20/2022 How Much Tobacco Do You Chew? None MIGRATION.18903 61674 Information not available 04/20/2022 In The 14 Days Before Symptom Onset, Have You Had Close Contact With A Laboratory-confir med COVID-19 While That Case Was Ill? No MIGRATION.34619 62014 Information not available 04/20/2022 In The 14 Days Before Symptom Onset, Have You Had Close Contact With A Person Who Is Under Investigation For COVID-19 While That Person Was Ill? No MIGRATION.69421 72845 Information not available 04/20/2022 Are You Deaf Or Do You Have Serious Difficulty Hearing? No MIGRATION.91738 88690 Information not available 04/20/2022 What Type Of Diet Are You Following? REGULAR MIGRATION.05660 52157 Information not available 04/20/2022 Which Illicit Or Recreational Drugs Have You Used? None MIGRATION.26315 76825 Information not available 04/20/2022 Do You Have An Electrostatic Air Filter? No MIGRATION.23986 48618 Information not available 04/20/2022 Do You Have A Humidifier? Yes MIGRATION.25927 55084 Information not available 04/20/2022 Do You Use Insect Repellent Routinely? Yes MIGRATION.50194 27004 Information not available 04/20/2022 Do You Have A Medical Power Of Application Support Analyst? Yes MIGRATION.35044 40233 Information not available 04/20/2022 Do You Have Moisture Problems In Your Home? No MIGRATION.82013 93337 Information not available 04/20/2022 What Was The Date Of Your Most Recent Tobacco Screening? 09/05/2024 Information not available 09/05/2024 Do You Have Any Pets? Yes MIGRATION.60459 74224 Information not available 04/20/2022 What Is Your Relationship Status? Information not available 04/15/2024 Do You Use Your Seat Belt Or Car Seat Routinely? Yes Information not available 03/07/2024 Do You Have Smoke And Carbon Monoxide Detectors In Your Home? Yes MIGRATION.73337 79567 Information not available 04/20/2022 Are You Passively Exposed To Smoke? No MIGRATION.98378 03762 Information not available 04/20/2022 How Much Tobacco Do You Smoke? No MIGRATION.79679 45783 Information not available 04/20/2022 Do You Use Sunscreen Routinely? Yes MIGRATION.99189 75825 Information not available 04/20/2022 Have You Recently Traveled Abroad? No MIGRATION.51517 07944 Information not available 04/20/2022 Do You Have Difficulty Walking Or Climbing Stairs? No Running Into ImmunotEGG-clu msy Pt Stated MIGRATION.64766 30723 Information not available 04/20/2022 Do You Have Any Dietary Restrictions? No Information not available 04/15/2024 Sex: Unknown Functional Status Question Answer Note LastModified by Organizat ion Details LastModified Time Do you or have you ever used smokeless tobacco? Never used smokeless tobacco MIGRATION.49728 34205 Information not available 04/20/2022 Are you currently employed? No Information not available 04/15/2024 Have you been exposed to chemicals or toxins? No not that aware of Information not available 04/15/2024 Do you have transportation difficulties? No MIGRATION.27586 87802 Information not available 04/20/2022 Are you able to care for yourself independently? Yes MIGRATION.92574 68350 Information not available 04/20/2022 Do you have difficulty dressing, bathing, grooming, or toileting? No MIGRATION.80261 34834 Information not available 04/20/2022 Do you or have you ever used e-cigarettes or vape? Never used electronic cigarettes MIGRATION.77637 31334 Information not available 04/20/2022 What is your exercise level? None MIGRATION.62262 82659 Information not available 04/20/2022 Do you use any illicit or recreational drugs? No MIGRATION.17582 12112 Information not available 04/20/2022 Do you or have you ever used any other forms of tobacco or nicotine? Yes vape 0 nicotine MIGRATION.98422 63915 Information not available 04/20/2022 What is your level of alcohol consumption? None MIGRATION.41479 33427 Information not available 04/20/2022 Are you able to walk independently without assistance or assistive devices? YESWOREST MIGRATION.58736 32392 Information not available 04/20/2022 Do you have difficulty doing errands alone? No MIGRATION.37754 14435 Information not available 04/20/2022 What is your occupation? retired MIGRATION.01017 76982 Information not available 04/20/2022 Mental Status Question Answer Note LastModified by Organizat ion Details LastModified Time Do you feel stressed (tense, restless, nervous, or anxious, or unable to sleep at night)? PQ8718-4 MIGRATION.49562074 26 Information not available 04/20/2022 Do you have difficulty concentrating, remembering or making decisions? No MIGRATION.30372945 26 Information not available 04/20/2022 Family History [...] PF 3 completed Ce Hector RN null, [place] [facility] 12/08/2022 11:49:45 COVID-19, mRNA, LNP-S, PF, shoaib-sucrose, 30 mcg/0.3 mL 3 completed Ce Hector RN null, [facility] 12/08/2022 11:50:25 RSV, recombinant, protein subunit RSVpreF, adjuvant reconstituted, 0.5 mL, PF 3 completed Ce Hector RN null, [facility] 01/09/2023 08:50:20 COVID-19, mRNA, LNP-S, PF, shoaib-sucrose, 30 mcg/0.3 mL 4 completed Bailee Perez RN null, [facility] 11/24/2023 08:40:45 Influenza, high-dose, trivalent, PF 4 completed Bailee Preez RN null, [facility] 11/24/2023 08:45:19 Influenza, split virus, quadrivalent, PF 0 completed Not Available [facility] 12/25/2024 10:03:09 COVID-19, mRNA, LNP-S, PF, 30 mcg/0.3 mL dose 1 completed Not Available [facility] 12/25/2024 10:03:09 COVID-19, mRNA, LNP-S, PF, 30 mcg/0.3 mL dose 1 completed Not Available [facility] 12/25/2024 10:03:09 zoster recombinant 1 completed Not Available [facility] 12/25/2024 10:03:09 COVID-19, mRNA, LNP-S, PF, 30 mcg/0.3 mL dose 1 completed Not Available [facility] 12/25/2024 10:03:09 zoster recombinant 1 completed Not Available [facility] 12/25/2024 10:03:09 pneumococcal polysaccharide PPV23 1 completed Not Available [facility] 12/25/2024 10:03:09 COVID-19, mRNA, LNP-S, PF, 30 mcg/0.3 mL dose, shoaib-sucrose 2 completed Not Available [facility] 12/25/2024 10:03:09 influenza, unspecified formulation 3 completed Not Available [facility] 12/25/2024 10:03:09 influenza, unspecified formulation 4 completed Not Available [facility] 12/25/2024 10:03:09 Influenza, split virus, trivalent, preservative 3 completed Melany Ruano CMA null, [facility] 09/01/2022 11:26:16 Influenza, split virus, trivalent, PF 3 completed Melany Ruano CMA null, [facility] 09/01/2022 11:26:16 Influenza, high-dose, quadrivalent, PF 2 completed SRIRAM Allen, [facility] 09/01/2022 11:26:16 COVID-19, mRNA, LNP-S, bivalent, PF, 30 mcg/0.3 mL dose 2 completed SRIRAM Allen, [facility] 09/01/2022 11:26:16 Hep A-Hep B 2 completed SRIRAM Allen, [facility] 09/01/2022 11:26:16 Influenza, split virus, trivalent, preservative 3 completed Not Available [facility] 04/20/2022 01:01:48 Influenza, high-dose, quadrivalent, PF 1 completed Not Available [facility] 04/20/2022 01:01:49 pneumococcal polysaccharide PPV23 0 completed Not Available [facility] 04/20/2022 01:01:49 Pneumococcal conjugate PCV 13 8 completed Not Available [facility] 04/20/2022 01:01:49 Influenza, split virus, quadrivalent, PF 7 completed Not Available [facility] 04/20/2022 01:01:49 Influenza, split virus, quadrivalent, PF 8 completed Not Available [facility] 04/20/2022 01:01:49 Tdap 4 completed Not Available [facility] 04/20/2022 01:01:49 Tdap 4 completed Katelyn Pearson RN null, [facility] 10/24/2023 09:34:20 Past Encounters Encounter ID Performer Location Encounter Start Date Encounter Closed Date Diagnosis/Indication Diagnosis SNOMED-CT Code Diagnosis ICD10 Code Diagnosis IMO Codes Diagnosis Note [id number] MARION Sterling [facility] Primary Care [facility] [address] [place] [address] 12/02/2024 16:04:39 12/02/2024 16:14:09 Health Concerns Section Related Observation LastModified by Organization Detai ls LastModified Time None Recorded Concern Status LastModified by Organization Details LastModified Time None Recorded Payers Encounter Date Sequence Insurance Name Policy Number Policy Benoit Covered Member ID Benoit Member ID Guarantor Name 12/02/2024 1 [employer] (MEDICARE REPLACEMENT/ ADVANTAGE - PPO) [id number] Yaneth Duarte [id number] Yaneth Duarte OBGyn Episode No OBEpisode recorded.
[2025-01-14 20:09] VITALS: BP 120/68; PULSE 136; RESP 15; TEMP 37.1; O2SAT 97
--- NOTE | 2025-01-14 20:12 | ECG_ITS ---
Test Date: 2025-01-14 20:24:48 Measurements Intervals [place] Rate: 120 P: 2 WY: 176 QRS: -15 QRSD: 99 T: 67 QT: 323 QTc: 458 Interpretive Statements SINUS TACHYCARDIA NONSPECIFIC ST & T-WAVE ABNORMALITY ABNORMAL RHYTHM ECG Compared to ECG 02/09/2024 04:09:19 NO SIGNIFICANT DIFFERENCE Electronically Signed On 01-15-2025 07:32:39 FOOD SERVICE ASSISTANT by Malachi Aviles M.D.
[2025-01-14 20:30] VITALS: BP 120/73; PULSE 122; RESP 14; O2SAT 93
[2025-01-14 20:41] LABS: Hematocrit 45.6 % (37.0-47.0); Hemoglobin 15.0 g/dL (12.0-15.0); Immature Granulocyte Percent A 0.4 % (0-0.5); Lymphocytes Absolute Auto 3.23 K/mm3 (0.9-3.2); Mean Corpuscular HGB Conc 32.9 g/dl (32-36); Mean Corpuscular Hemoglobin 28.9 pg (26-34); Mean Corpuscular Volume 87.9 fl (80-100); Nucleated Red Blood Cells Absolute Auto 0.000 K/mm3 (0.0-0.012); Nucleated Red Blood Cells Perc 0.0 % (0.0-0.2); Platelet Count Result 182 k/mm3 (150-375); Red Blood Count 5.19 M/mm3 (4.2-5.4); White Blood Count 11.2 K/mm3 (4.5-10.0)
[2025-01-14 20:44] LABS: Add Urine Microscopic? YES; Appearance Urine Cloudy (Clear); Glucose Urine UA 3+ mg/dL (Negative); Leukocyte Esterase Ur 2+ LEU/UL (Negative); Nitrate Urine Negative (Negative); Specific Grav Ur 1.013 (1.001-1.035)
[2025-01-14 21:00] VITALS: BP 130/72; PULSE 121; RESP 14; O2SAT 94
[2025-01-14 21:30] VITALS: BP 148/88; PULSE 122; RESP 24; O2SAT 93
[2025-01-14 21:56] LABS: Alanine Aminotransferase 30 U/L (6-35); Albumin Level 4.4 g/dL (3.5-5.1); Alkaline Phosphatase 109 U/L (38-126); Anion Gap 10 mmol/L (4-12); Aspartate Amino Transferase 37 U/L (14-36); Bilirubin,Total 0.7 mg/dL (0.2-1.3); Blood Urea Nitrogen 16 mg/dL (7-17); Calcium 9.4 mg/dL (8.4-10.2); Carbon Dioxide 22 mmol/L (22-30); Chloride 104 mmol/L (98-107); Estimated CRCL calculation 79 ml/min; Estimated Glomerular Filt Rate > 60; Glucose 123 mg/dL (65-110); Lipase 71 U/L (23-300); Potassium 3.7 mmol/L (3.4-5.0); Sodium 136 mmol/L (137-145); Total Protein 8.3 g/dL (6.3-8.2)
--- OUTSIDE RECORDS SUMMARY | 2025-01-14 22:37 | XMS_ITS | Encounter Summary ---
Author Organization [facility] Healthcare Address [address] [place] [address] Care Team Providers Care Film Waxer Name Role Phone Cammie Woodruff OD Unavailable [phone] Carline Ramires CONDENSER TESTER Primary Care Provider [phone] Osmany Foster MD Unavailable [phone] Jess Lima CONDENSER TESTER Primary Care Provider Encounter Details Date Type Department Care Team (Late st Contact Info) Description 02/10/2024 Orders Only [facility] Health Information Management [address] [place] [id number] Scanning, Provider Social History Tobacco Use Types [...] file Legal Sex Female 3:03 AM IT SUPPORT SPECIALIST Gender Identity Not on file Sexual [...] COVID: Suspected 04/02/2024 04/02/2024 04/02/2024 4:01 PM IT SUPPORT SPECIALIST COVID: Suspected 04/02/2024 04/02/2024 04/02/2024 10:42 PM IT SUPPORT SPECIALIST Influenza, adult 04/02/2024 04/02/2024 04/09/2024 3:07 AM IT SUPPORT SPECIALIST documented as of this encounter Care Teams Film Waxer Relationship Specialty Start Date End Date Carline Ramires NP [address] [facility] [address] [place] [address] PCP - General Family Medicine 08/18/23 04/09/24 Jess Lima NP [address] [place] [address] PCP - General Family Medicine 04/10/24 Cammie Woodruff OD [address] [place] [address] Optometry 03/13/19 Osmany Foster MD [address] [place], [place] [id number] Referring Physician Gastroenterology 08/18/23 [facility] Endocrinology 08/18/23 documented as of this encounter
--- OUTSIDE RECORDS SUMMARY | 2025-01-14 22:37 | XMS_ITS | Clinical Summary ---
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 [...] Immunization Administration Dates Next Due COVID-19 mRNA ([employer]) 0.3 m L (30 mcg) vaccine (12 years and up) 12/08/2022 Hep A / Hep B 05/31/2021 Influenza, Quadrivalent, Karina l Culture-based MDCK, Preservative Free, Antibiotic Free, Intramuscular 11/20/2018 Influenza, Quadrivalent, Hig h Dose, Preservative Free, Intrr 12/08/2022,11/23/2021,11/10/2020 Influenza, Quadrivalent, Spl it, Preservative Free, Intramuscular 11/13/2019,11/09/2017,12/20/2016 Influenza, Trivalent, IM (MDV) 12/20/2012,2012 Influenza, Trivalent, Preser vative Free, Intramuscular 12/17/2012 Influenza, Unspecified 11/21/2023,02/20/2023,02/2022 [employer] Sars-Cov-2 Bivalent V accination (12+ YRS) 11/23/2021 [...] on file 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 Gender Identity Not on file Sexual Orientation [...] Completed 08/18/2023 Medical Devices Implanted Type Area Motor Brakeman Device Identifier Shelf Expiration Date Model / Serial / Lot Ar[employer]rex [employer] Implant Pin Kit Glenoid Ar-9607s - [id number] Implanted:Qty: 1 on 05/20/2024 by Kimani Lopez MD at [facility] Left: Shoulder Ar[employer]rex Inc 02/20/2028 AR-9607S / / [id number] Arthrex Inc Arthrex Univers Revers 36mm Suture Cup Humeral Sterile Latex Free [id number] - [id number] Implanted:Qty: 1 on 05/20/2024 by Kimani Lopez MD at [facility] Left: Shoulder [employer] [id number] 01/19/2029 ALEXIS-9502F- 36CPC .[id number] Ar[employer]rex [employer] Univers Revers 36mm Shoulder +3mm Small Insert Humeral Sterile Ar-9503s-03 - [id number] Implanted:Qty: 1 on 05/20/2024 by Kimani Lopez MD at [facility] Left: Shoulder [employer] [id number] 08/19/2028 AR-9503S- .[id number] Ar[employer]rex [employer] Baseplate 24mm 10 Deg Full Augment 2 Lateralized Pn-[id number] - [id number] Implanted:Qty: 1 on 05/20/2024 by Kimani Lopez MD at [facility] Left: Shoulder [employer] [id number] 01/19/2029 AR-9580-2 410-2S / / [id number] [employer] Univers Revers 25mm Modular Post Component Glenoid Porous Ar-9582-25 - [id number] Implanted:Qty: 1 on 05/20/2024 by Kimani Lopez MD at [facility] Left: Shoulder [employer] [id number] 08/19/2028 AR-9582-2 5 / / [id number] Ar[employer]rex [employer] 36mm 24 Baseplate Taper Sphere Glenoid [id number] - [id number] Implanted:Qty: 1 on 05/20/2024 by Kimani Lopez MD at [facility] Left: Shoulder [employer] [id number] 11/19/2028 AR-9564-2 436 / / [id number] Ar[employer]rex Inc 4.5mm 32mm Peripheral Screw Bone Sterile Rm-[id number] - [id number] Implanted:Qty: 1 on 05/20/2024 by Kimani Lopez MD at [facility] Left: Shoulder [employer] [id number] 04/19/2028 AR-9562-3 2NL / / [id number] Ar[employer] 4.5mm 32mm Peripheral Screw Bone Sterile Fe-9619-49va - [id number] Implanted:Qty: 1 on 05/20/2024 by Kimani Lopez MD at [facility] Left: Shoulder [employer] [id number] 10/20/2028 AR-9562-3 2NL / / [id number] Ar[employer]rex [employer] Screw Glenoid Locking Reverse Univers Revers 5.5x20mm Titanium Ar-9563-20 - [id number] Implanted:Qty: 1 on 05/20/2024 by Kimani Lopez MD at [facility] Left: Shoulder [employer] Inc [id number] 09/19/2028 AR-9563-2 0 / / [id number] Ar[employer] Screw Glenoid Locking Reverse Univers Revers 5.5x20mm Titanium Ar-9563-20 - [id number] Implanted:Qty: 1 on 05/20/2024 by Kimani Lopez MD at [facility] Left: Shoulder [employer] Inc [id number] 09/19/2028 AR-9563-2 0 / / [id number] Ar[employer]rex Inc Univers Revers Shoulder 6 Stem Humeral Sterile Ar-9501-06s - [id number] Implanted:Qty: 1 on 05/20/2024 by Kimani Lopez MD at [facility] Left: Shoulder [employer] Inc [id number] 09/19/2028 AR-9501-0 6S / / [id number] Procedures Procedure Name Priority Date/Time Associated Diagnosis [...] ORDERAB LES Final Result Performing Organization Address City/[facility] de Phone Number [facility] [address] [place] [address] * (ABNORMAL) Hemoglobin A1c (05/02/2024 2:54 PM CDT) [facility] Hgb A1C 7.0(H) 4.0 - 5.6 % Estimated Average Glucose 154 mg/dL [facility] Comment: The ADA recommends reporting an estimated Average Glucose (eAG) with all Hemoglobin A1c results using the equation derived from a study of 507 normal and diabetic adults. Minority populations were underrepresented and children were not included. (Diabetes Care 31:6999-0645, 2008). The eAG is not equivalent to a fasting glucose. Blood 05/02/2024 2:54 PM CDT 05/02/2024 2:54 PM CDT Seema Medrano CATH LAB LAB BLOOD ORDERAB LES Final Result Performing Organization Address [facility] de Phone Number [facility] [address] [place] [address] * Hepatitis C antibody Blood (08/18/2023 11:21 AM CDT) [facility] Hep C Ab Nonreactive Nonreactive Comment: Interpretive [...] CDT 08/18/2023 4:02 PM CDT Carline Ramires CATH LAB LAB MICROBIOLOGY - GENERAL ORDER JEREMIAH Final Result Performing Organization Address [facility] Co de Phone Number [facility] [address] Department [place] [address] * Albumin Creatinine Ratio, Urine (08/18/2023 11:21 [...] LAB URINE ORDERABLES Final Resul t MERY [address] Department [place] [address] * DIABETES EYE EXAM (10/31/2022 9:39 AM CDT) Historical Provider HEALTH MAINTENANCE Final Result * COLONOSCOPY (06/30/2022 12:57 PM CDT) Historical Provider HEALTH MAINTENANCE Final Result from Last 3 Months or Most Recently Relevant to Health Maintenance Insurance T MEDICARE AETNA MEDICARE Advance Directives For more information, please contact: [phone] * Full Code (Latest Code Status on File) Date Activated Date Inactivated Comments 05/20/2024 2:44 PM 05/21/2024 5:20 PM Care Teams Director Dental Services Relationship Specialty Start Date End Date Jess Lima NP [address] [place] [address] PCP - General Family Medicine 04/10/24 Cammie Woodruff OD [address] [place] [address] Optometry 03/13/19 Osmany Foster MD [address] [place] [address] Referring Physician Gastroenterology 08/18/23 [facility] Endocrinology 08/18/23
--- NOTE | 2025-01-14 22:56 | ED.NAVMDI ---
HPI - Nausea/Vomiting/Diarrhea General Chief complaint: Nausea/Vomiting/Diarrhea <Mary Ryan APRN - Last Filed: 01/15/25 04:44> Stated complaint: Diarrhea since monday <Mary Ryan APRN - Last Filed: 01/15/25 04:44> Time Seen by Provider: 01/14/25 22:16 <Mary Ryan APRN - Last Filed: 01/15/25 04:44> History of Present Illness HPI Narrative: Patient is a 69-year-old female who presents to the ER with diarrhea for the past 3 days. She reports she has been incontinent of stool at times. Patient also endorses mild nausea. She endorses a history of ulcerative colitis and is supposed to be using suppositories for treatment but ?they keep falling out. Patient denies any abdominal pain, recent fevers, or back pain. She denies any history of C diff and reports she has not been on any recent antibiotics. Patient endorses a history of bilateral knee replacement, left shoulder replacement, diabetes and ulcerative colitis. <Mary Ryan APRN - Last Filed: 01/15/25 04:44> Related Data Home medications: Home Medications ?Medication ?Instructions ?Recorded ?Confirmed ?Last Taken ?Type atorvastatin 40 mg tablet (Lipitor) 40 mg PO QPM 12/04/19 10/10/24 02/29/24 History metoprolol succinate 50 mg 50 mg PO HS 12/04/19 10/10/24 02/29/24 History tablet,extended release 24 hr aripiprazole 30 mg tablet (Abilify) 30 mg PO HS 06/02/23 10/10/24 02/29/24 History desvenlafaxine succinate 100 mg 100 mg PO DAILY 06/02/23 10/10/24 02/29/24 History tablet,extended release 24 hr (Pristiq) dextroamphetamine-amphetamine 20 20 mg PO DAILY 02/09/24 10/10/24 02/29/24 History mg tablet alprazolam 2 mg tablet mg 08/11/24 10/10/24 Unknown History cyanocobalamin (vitamin B-12) mcg 08/11/24 10/10/24 Unknown History 1,000 mcg/mL injection solution ferrous sulfate 325 mg (65 mg mg 08/11/24 10/10/24 Unknown History iron) tablet (FeroSul) albuterol sulfate 90 mcg/actuation inhalation 12/13/24 Unknown History aerosol inhaler <Mary Ryan APRN - Last Filed: 01/15/25 04:44> Allergies/Adverse reactions: Allergies Allergy/AdvReac Type Severity Reaction Status Date / Time codeine Allergy Intermediate Itching Verified 01/14/25 20:00 sulfamethoxazole (From Allergy Joint Pain Verified 01/14/25 20:00 Bactrim) triamcinolone Allergy Joint Pain Verified 01/14/25 20:00 trimethoprim (From Bactrim) Allergy Joint Pain Verified 01/14/25 20:00 <Mary Ryan APRN - Last Filed: 01/15/25 04:44> Review of Systems Review of Systems: All systems reviewed & are unremarkable except as noted in HPI and below <Mary Ryan APRN - Last Filed: 01/15/25 04:44> [facility] Past Medical History Medical History: Medical History Hepatic steatosis Post-menopausal Vitamin D deficiency Type 2 diabetes mellitus Bipolar disorder Long-term use of immunosuppressant medication Obesity Mucus in stool Fecal urgency High risk medication use Obstructive sleep apnea Esophageal stricture Ulcerative proctitis Hepatomegaly Fecal incontinence Hypertension Tongue, fissured Hyperlipidemia Psychiatric care Nasal septal perforation Anxiety Depression Arthritis History of emphysema COPD (chronic obstructive pulmonary disease) <Mary Ryan APRN - Last Filed: 01/15/25 04:44> Surgical History Surgical History: Surgical History History of bilateral knee replacement History of section History of hysterectomy History of tonsillectomy <Mary Ryan APRN - Last Filed: 01/15/25 04:44> Family History Family History: Family History Other Renal cell cancer <Mary Ryan APRN - Last Filed: 01/15/25 04:44> Social History Social History: Social History Smoking packs per day: 1.5 Smoking cigarettes per day: 30.0 Years smoked: 45 Smoking pack-years: 67.50 Smoking status: Former smoker Tobacco type: e-cigarettes/vaping Second hand tobacco smoke exposure: Yes Smoking end date: 02/20/09 Additional smoking assessment comments: Still vapes, no nicotine Alcohol intake: never Substance use: never Substance use type: does not use Do You Feel Safe in your Home?: Yes Lack of Transportation: No Lack of Food: Never True Current Housing: I Have Housing Concerned About Future Housing: No Difficulty Paying Gas/Electric Bills: No Difficulty Paying for Meds: No Currently Unemployed: No Education: Associate Degree Difficulty w/ Childcare or Family Care: No Living arrangements: with family Additional living arrangements comments: AND GRANDDAUGHTER Gender identity (if verbalized by the patient): Female Spiritual care concerns: No <Mary Ryan APRN - Last Filed: 01/15/25 04:44> Exam Narrative: GENERAL: Well appearing, well-nourished, non-toxic, in no acute distress. HEAD: Normocephalic, atraumatic. NECK: Supple. No adenopathy, no masses. RESPIRATORY: Airway patent, respirations nonlabored. Clear to auscultation bilaterally, no rales, rhonchi, wheezing. CARDIOVASCULAR: Tachycardia without murmurs, rubs, or gallops. Peripheral pulses 2+ and equal bilaterally. ABDOMINAL: Soft, mild bilateral lower quadrant tenderness, nondistended, no hepatosplenomegaly. Normoactive BS. MUSCULOSKELETAL: Moves all extremities. Strength/ROM intact without gross deformities. SKIN: Warm, dry, normal color. No rashes. NEURO: A&O X3. Speech clear. Cranial nerves II-XII intact. No ataxic movements. PSYCHIATRIC: Appropriate mood and affect. Normal interaction. 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 CT scan report shows no interval change since January 2024 and at that time she had evidence of ulcerative colitis which she already is aware of. Symptoms consistent with UC flare. Patient's heart rate came down with fluids. Has UTI that prescription antibiotics were sent to her pharmacy. Patient expressing desire for discharge. Given return precautions and discharged home at this time. <Macile Oliva MD - Last Filed: 01/15/25 06:49> Vital Signs Vital signs: Vital Signs Temperature 37.1 C 01/14/25 20:09 Pulse Rate 136 H 01/14/25 20:09 Respiratory Rate 15 01/14/25 20:09 Blood Pressure 120/68 01/14/25 20:09 Pulse Oximetry 97 01/14/25 20:09 Oxygen Delivery Room Air 01/14/25 20:09 Temperature 37.1 C 01/14/25 20:09 Pulse Rate 106 H 01/15/25 05:03 Respiratory Rate 22 H 01/15/25 05:03 Blood Pressure 142/62 H 01/15/25 05:03 Pulse Oximetry 98 01/15/25 05:03 Oxygen Delivery Room Air 01/14/25 20:09 <Mary Ryan APRN - Last Filed: 01/15/25 04:44> Vital Signs Temperature 37.1 C 01/14/25 20:09 Pulse Rate 136 H 01/14/25 20:09 Respiratory Rate 15 01/14/25 20:09 Blood Pressure 120/68 01/14/25 20:09 Pulse Oximetry 97 01/14/25 20:09 Oxygen Delivery Room Air 01/14/25 20:09 Temperature 37.1 C 01/14/25 20:09 Pulse Rate 106 H 01/15/25 05:03 Respiratory Rate 22 H 01/15/25 05:03 Blood Pressure 142/62 H 01/15/25 05:03 Pulse Oximetry 98 01/15/25 05:03 Oxygen Delivery Room Air 01/14/25 20:09 <Maciel Oliva MD - Last Filed: 01/15/25 06:49> MDM - Nausea/Vomiting/Diarrhea MDM Narrative Medical decision making narrative: Patient is a 69-year-old female who presents to the ER with diarrhea for the past 3 days. She reports she has been incontinent of stool at times. Patient also endorses mild nausea. She endorses a history of ulcerative colitis and is supposed to be using suppositories for treatment but ?they keep falling out. Patient denies any abdominal pain, recent fevers, or back pain. She denies any history of C diff and reports she has not been on any recent antibiotics. Patient endorses a history of bilateral knee replacement, left shoulder replacement, diabetes and ulcerative colitis. Labs Ordered: CBC, CMP, UA, lipase, C difficile Imaging Ordered: CT abdomen pelvis Medications Ordered: 1 L normal saline IV bolus x 2, Zofran 4 mg, Lomotil p.o., levofloxacin p.o. Results: Patient's urinalysis indicates she has a UTI. Her C difficile was negative. Diagnosis: Mild dehydration, urinary tract infection, tachycardia, diarrhea 0300-patient is requesting to be discharged home at this time, as she feels more comfortable managing her diarrhea at home. It was explained to patient that her heart rate is still elevated (110s) which may be due to her dehydration from diarrhea. 0430-Patient's heart rate is decreased down into the 100s range following IV fluid administration. Care signed out to Dr. Oliva pending CT scan results. <Mary Ryan APRN - Last Filed: 01/15/25 04:44> Differential Diagnosis Differential diagnosis: Likely gastroenteritis, clostridium difficile infection, dehydration and other (Urinary tract infection,) <Mary Ryan APRN - Last Filed: 01/15/25 04:44> Lab Data Attestation: I reviewed the patient's lab results. <Mary Ryan APRN - Last Filed: 01/15/25 04:44> Result diagrams: 01/14/25 20:24 01/14/25 21:34 <Mary Ryan APRN - Last Filed: 01/15/25 04:44> Labs: Lab Results 01/14/25 01/14/25 01/15/25 Range/Units 20:24 21:34 00:17 WBC 11.2 H (4.5-10.0) K/mm3 RBC 5.19 (4.2-5.4) M/mm3 Hgb 15.0 (12.0-15.0) g/dL Hct 45.6 (37.0-47.0) % MCV 87.9 (80-100) fl MCH 28.9 (26-34) pg MCHC 32.9 (32-36) g/dl RDW 13.8 (11.5-14.5) % Plt Count 182 (150-375) k/mm3 MPV 10.6 H (7.4-10.4) fl Immature Gran % (Auto) 0.4 (0-0.5) % Neut % (Auto) 62.6 (45.5-73.1) % Lymph % (Auto) 28.9 (18.3-44.2) % Logan % (Auto) 5.7 (2.6-8.5) % Eos % (Auto) 2.0 (0-4.4) % Baso % (Auto) 0.4 (0.2-1.2) % Lymph # (Auto) 3.23 H (0.9-3.2) K/mm3 Logan # (Auto) 0.6 (0.1-0.6) K/mm3 Eos # (Auto) 0.2 (0-0.3) K/mm3 Baso # (Auto) 0.0 (0.0-0.1) K/mm3 Abs Immat Gran (auto) 0.04 H (0.00-0.031) K/mm3 Absolute Neuts (auto) 7.0 H (1.3-6.7) K/mm3 Absolute Nucleated RBC 0.000 (0.0-0.012) K/mm3 Nucleated RBC % 0.0 (0.0-0.2) % Sodium 136 L (137-145) mmol/L Potassium 3.7 (3.4-5.0) mmol/L Chloride 104 (98-107) mmol/L Carbon Dioxide 22 (22-30) mmol/L Anion Gap 10 (4-12) mmol/L BUN 16 (7-17) mg/dL Creatinine 0.62 L (0.7-1.0) mg/dL Estim Creat Clear Calc 79 ml/min Estimated GFR > 60 (59 - ) Glucose 123 H (65-110) mg/dL Lactic Acid 1.8 (0.7-2.0) mmol/L Calcium 9.4 (8.4-10.2) mg/dL Total Bilirubin 0.7 (0.2-1.3) mg/dL AST 37 H (14-36) U/L ALT 30 (6-35) U/L Alkaline Phosphatase 109 (38-126) U/L Total Protein 8.3 H (6.3-8.2) g/dL Albumin 4.4 (3.5-5.1) g/dL Lipase 71 (23-300) U/L Urine Color Yellow (Yellow) Urine Appearance Cloudy H (Clear) Urine pH 5.0 (5.0-9.0) Ur Specific [place] 1.013 (1.001-1.035) Urine Protein Negative (Negative) mg/dL Urine Glucose (UA) 3+ H (Negative) mg/dL Urine Ketones Negative (Negative) mg/dL Ur Blood (Man) Negative (Negative) Urine Nitrate Negative (Negative) Urine Bilirubin Negative (Negative) Urine Urobilinogen 0.2 (<2.0) mg/dL Leukocyte Esterase Rfl 2+ H (Negative) SYMONE/UL Urine RBC 0-2 (0-2) /hpf Urine WBC 21-50 H (0-3) /hpf Ur Squamous Epith Cells Few (Few) /hpf Urine Bacteria None seen /hpf Urine Casts 3-5 C. difficile (PCR) Negative (NEGATIVE) <Mary Ryan, REACH TRUCK OPERATOR - Last Filed: 01/15/25 04:44> Lab Results 01/14/25 01/14/25 01/15/25 Range/Units 20:24 21:34 00:17 WBC 11.2 H (4.5-10.0) K/mm3 RBC 5.19 (4.2-5.4) M/mm3 Hgb 15.0 (12.0-15.0) g/dL Hct 45.6 (37.0-47.0) % MCV 87.9 (80-100) fl MCH 28.9 (26-34) pg MCHC 32.9 (32-36) g/dl RDW 13.8 (11.5-14.5) % Plt Count 182 (150-375) k/mm3 MPV 10.6 H (7.4-10.4) fl Immature Gran % (Auto) 0.4 (0-0.5) % Neut % (Auto) 62.6 (45.5-73.1) % Lymph % (Auto) 28.9 (18.3-44.2) % Logan % (Auto) 5.7 (2.6-8.5) % Eos % (Auto) 2.0 (0-4.4) % Baso % (Auto) 0.4 (0.2-1.2) % Lymph # (Auto) 3.23 H (0.9-3.2) K/mm3 Logan # (Auto) 0.6 (0.1-0.6) K/mm3 Eos # (Auto) 0.2 (0-0.3) K/mm3 Baso # (Auto) 0.0 (0.0-0.1) K/mm3 Abs Immat Gran (auto) 0.04 H (0.00-0.031) K/mm3 Absolute Neuts (auto) 7.0 H (1.3-6.7) K/mm3 Absolute Nucleated RBC 0.000 (0.0-0.012) K/mm3 Nucleated RBC % 0.0 (0.0-0.2) % Sodium 136 L (137-145) mmol/L Potassium 3.7 (3.4-5.0) mmol/L Chloride 104 (98-107) mmol/L Carbon Dioxide 22 (22-30) mmol/L Anion Gap 10 (4-12) mmol/L BUN 16 (7-17) mg/dL Creatinine 0.62 L (0.7-1.0) mg/dL Estim Creat Clear Calc 79 ml/min Estimated GFR > 60 (59 - ) Glucose 123 H (65-110) mg/dL Lactic Acid 1.8 (0.7-2.0) mmol/L Calcium 9.4 (8.4-10.2) mg/dL Total Bilirubin 0.7 (0.2-1.3) mg/dL AST 37 H (14-36) U/L ALT 30 (6-35) U/L Alkaline Phosphatase 109 (38-126) U/L Total Protein 8.3 H (6.3-8.2) g/dL Albumin 4.4 (3.5-5.1) g/dL Lipase 71 (23-300) U/L Urine Color Yellow (Yellow) Urine Appearance Cloudy H (Clear) Urine pH 5.0 (5.0-9.0) Ur Specific [place] 1.013 (1.001-1.035) Urine Protein Negative (Negative) mg/dL Urine Glucose (UA) 3+ H (Negative) mg/dL Urine Ketones Negative (Negative) mg/dL Ur Blood (Man) Negative (Negative) Urine Nitrate Negative (Negative) Urine Bilirubin Negative (Negative) Urine Urobilinogen 0.2 (<2.0) mg/dL Leukocyte Esterase Rfl 2+ H (Negative) SYMONE/UL Urine RBC 0-2 (0-2) /hpf Urine WBC 21-50 H (0-3) /hpf Ur Squamous Epith Cells Few (Few) /hpf Urine Bacteria None seen /hpf Urine Casts 3-5 C. difficile (PCR) Negative (NEGATIVE) <Maciel Oliva MD - Last Filed: 01/15/25 06:49> Discharge Plan Discharge Clinical Impression: Acute UTI, Diarrhea <Mary Ryan APRN - Last Filed: 01/15/25 04:44> Patient Disposition: Home <Mary Ryan APRN - Last Filed: 01/15/25 04:44> Condition: Stable <Mary Ryan APRN - Last Filed: 01/15/25 04:44> Instructions: Antibiotic Form, Acute Diarrhea (ED) <Mary Ryan APRN - Last Filed: 01/15/25 04:44> Additional Instructions: CT scan shows no acute urgent or emergent findings. CT scan stable from previous imaging in 2023. Urinary tract infection antibiotic sent to her pharmacy. Return with any worsening symptoms, worsening dehydration, inability to tolerate oral intake, intractable fevers or any other emergencies. Follow-up with your regular doctors. <Mary Ryan APRN - Last Filed: 01/15/25 04:44> Patient Language: Mongolian <Mary Ryan APRN - Last Filed: 01/15/25 04:44> Prescriptions: New levofloxacin 750 mg tablet 750 mg PO DAILY Qty: 5 0RF No Action cyanocobalamin (vitamin B-12) 1,000 mcg/mL solution ferrous sulfate [FeroSul] 325 mg (65 mg iron) tablet alprazolam 2 mg tablet albuterol sulfate 90 mcg/actuation HFA aerosol inhaler INHALATION prednisone 20 mg tablet 40 mg PO DAILY 5 Days Qty: 10 0RF amoxicillin-pot clavulanate 875-125 mg tablet 1 tablet PO Q12H 7 Days Qty: 14 0RF benzonatate 200 mg capsule 200 mg PO TID PRN (Reason: cough) 7 Days Qty: 21 0RF (DME) Dexcom G7 Sensor Device See Rx Instructions .Route Qty: 9 3RF Rx Instructions: As directed Skyrizi 180 mg/1.2 mL (150 mg/mL) wearable injector 180 mg subcut .every 8 weeks Qty: 1.2 11RF Skyrizi 60 mg/mL solution 1,200 mg IV ONCE atorvastatin [Lipitor] 40 mg tablet 40 mg PO QPM metoprolol succinate 50 mg tablet extended release 24 hr 50 mg PO HS aripiprazole [Abilify] 30 mg Tablet 30 mg PO HS desvenlafaxine succinate [Pristiq] 100 mg Tablet Extended Release 24 Hr 100 mg PO DAILY Rx Instructions: Bottle unopened dextroamphetamine-amphetamine 20 mg tablet 20 mg PO DAILY aspirin 81 mg capsule 81 mg PO DAILY Qty: 30 0RF semaglutide 2 mg/dose (8 mg/3 mL) pen injector 2 mg subcut WEEKLY Qty: 9 2RF Rx Instructions: Pt takes on Saturdays dapagliflozin propanediol 5 mg tablet 5 mg PO DAILY Qty: 90 2RF <Mary Ryan APRN - Last Filed: 01/15/25 04:44> Follow-up/Referrals: Talita,Jess Ahuja NP [Primary Care Provider, Unknown] <Mary Ryan APRN - Last Filed: 01/15/25 04:44> Time of Disposition: 04:51 <Mary Ryan APRN - Last Filed: 01/15/25 04:44> 04:51 <Maciel Oliva MD - Last Filed: 01/15/25 06:49>
[2025-01-14] MEDS: SODIUM CHLORIDE 0.9% IV 1,000 ML 999 ML IV CONT (23:12)
[2025-01-14] MEDS: ONDANSETRON INJ 4 MG/2 ML VIAL IV PUSH (23:12)
[2025-01-14 23:30] VITALS: BP 120/62; PULSE 114; RESP 19; O2SAT 92
[2025-01-15] VITALS: BP 129/63; PULSE 120; RESP 19; O2SAT 93
[2025-01-15 00:30] VITALS: BP 122/62; PULSE 117; RESP 16; O2SAT 96
[2025-01-15] MEDS: DIPHENOXYLATE/ATROPINE (*CRX) 2.5 MG TABLET 1 TABLET PO (00:51)
[2025-01-15] MEDS: SODIUM CHLORIDE 0.9% IV 1,000 ML 999 ML IV CONT (00:51)
[2025-01-15 01:00] VITALS: BP 139/58; PULSE 122; RESP 23; O2SAT 95
[2025-01-15 01:18] LABS: Toxigenic C. Diff NEGATIVE (NEGATIVE)
[2025-01-15 01:30] VITALS: BP 142/62; PULSE 117; RESP 19; O2SAT 94
[2025-01-15 05:03] VITALS: BP 142/62; PULSE 106; RESP 22; O2SAT 98
== END 2025-01-15 05:06 | disposition home or self-care (01) ==
PROVIDERS: Student in an Organized Health Care Education/Training Program; Emergency Provider Registered Nurse; PCP Nurse Practitioner Family
DX: N39.0 Urinary tract infection, site not specified (principal); R19.7 Diarrhea, unspecified; R00.0 Tachycardia, unspecified; K76.0 Fatty (change of) liver, not elsewhere classified; E11.9 Type 2 diabetes mellitus without complications; G47.30 Sleep apnea, unspecified; I10 Essential (primary) hypertension; E78.5 Hyperlipidemia, unspecified; F41.9 Anxiety disorder, unspecified; F32.A Depression, unspecified; M19.90 Unspecified osteoarthritis, unspecified site; J44.9 Chronic obstructive pulmonary disease, unspecified
CPT/HCPCS: 36415; 74177; 80053; 81001; 83605; 83690; 85025; 87493; 93005; 96361; 96374; 99284; A9270; J2405; J7030; Q9967

== ENCOUNTER 2025-02-04 12:02 | Outpatient (CLI) | payer MEDICARE, SELFPAY ==
--- OUTSIDE RECORDS SUMMARY | 2025-02-04 10:12 | XMS_ITS | Clinical Summary ---
Author Organization [facility] Address [address] [place] [address] Care Team Providers Care Bus System Operator Name Role Phone Kacy Cammiepj Figueroa OD Unavailable Osmany Foster MD Unavailable [phone] Jess Lima NP Primary Care Provider [phone] Allergies Active Allergy Reactions Criticality Noted Date [...] months Active blood-glucose meter,continuou s (Dexcom G7 Microfilmer) misc Activ e ALPRAZolam (XANAX) 1 mg [...] (12/13/2018): Added automatically from request for surgery [id number] Allergic rhinitis 08/22/2018 Attention deficit hyperactiv ity [...] Patient states she follows with Endo at [place], patient unable to recall the provider's name. [...] Immunization Administration Dates Next Due COVID-19 mRNA (O[employer]) 0.3 m L (30 mcg) vaccine (12 years and up) 12/08/2022 Hep A / Hep B 05/31/2021 Influenza, Quadrivalent, Karina l Culture-based MDCK, Preservative Free, Antibiotic Free, Intramuscular 11/20/2018 Influenza, Quadrivalent, Hig h Dose, Preservative Free, Intrr 12/08/2022,11/23/2021,11/10/2020 Influenza, Quadrivalent, Spl it, Preservative Free, Intramuscular 11/13/2019,11/09/2017,12/20/2016 Influenza, Trivalent, IM (MDV) 12/20/2012,2012 Influenza, Trivalent, Preser vative Free, Intramuscular 12/17/2012 Influenza, Unspecified 11/21/2023,02/20/2023,02/2022 [employer] Sars-Cov-2 Bivalent V accination (12+ YRS) 11/23/2021 [...] on file Legal Sex Female 3:03 AM ACCESS 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 Gender Identity Not on file Sexual [...] Completed 08/18/2023 Medical Devices Implanted Type Area Student Services Representative Device Identifier Shelf Expiration Date Model / Serial / Lot Arthrex Inc Implant Pin Kit Glenoid Ar-9607s - [id number] Implanted:Qty: 1 on 05/20/2024 by Kimani Lopez MD at [facility] Left: Shoulder Arthrex Inc 02/20/2028 AR-9607S / / [id number] Arthrex Inc Arthrex Univers Revers 36mm Suture Cup Humeral Sterile Latex Free Qq-2938j-05epb - [id number] Implanted:Qty: 1 on 05/20/2024 by Kimani Lopez MD at [facility] Left: Shoulder Arthrex Inc [id number] 01/19/2029 ALEXIS-9502F- 36CPC .[id number] Arthrex Inc Univers Revers 36mm Shoulder +3mm Small Insert Humeral Sterile Ar-9503s-03 - [id number] Implanted:Qty: 1 on 05/20/2024 by Kimani Lopez MD at [facility] Left: Shoulder Ar[employer]rex Inc [id number] 08/19/2028 AR-9503S- .08037 Arthrex Inc Baseplate 24mm 10 Deg Full Augment 2 Lateralized Is-0980-1838-2s - [id number] Implanted:Qty: 1 on 05/20/2024 by Kimani Lopez MD at [facility] Left: Shoulder Arthrex Inc [id number] 01/19/2029 AR-9580-2 410-2S / / [id number] Ar[employer]rex Inc Univers Revers 25mm Modular Post Component Glenoid Porous Ar-9582-25 - [id number] Implanted:Qty: 1 on 05/20/2024 by Kimani Lopez MD at [facility] Left: Shoulder Arthrex Inc [id number] 08/19/2028 AR-9582-2 5 / / [id number] Arthrex Inc 36mm 24 Baseplate Taper Sphere Glenoid Yg-5736-5236 - [id number] Implanted:Qty: 1 on 05/20/2024 by Kimani Lopez MD at [facility] Left: Shoulder Arthrex Inc [id number] 11/19/2028 AR-9564-2 436 / / [id number] Arthrex Inc 4.5mm 32mm Peripheral Screw Bone Sterile Yc-5499-03kr - [id number] Implanted:Qty: 1 on 05/20/2024 by Kimani Lopez MD at [facility] Left: Shoulder Ar[employer]rex Inc [id number] 04/19/2028 AR-9562-3 2NL / / [id number] Arthrex Inc 4.5mm 32mm Peripheral Screw Bone Sterile Vb-3418-24jv - [id number] Implanted:Qty: 1 on 05/20/2024 by Kimani Lopez MD at [facility] Left: Shoulder Arthrex Inc [id number] 10/20/2028 AR-9562-3 2NL / / [id number] Ar[employer]rex Inc Screw Glenoid Locking Reverse Univers Revers 5.5x20mm Titanium Ar-9563-20 - [id number] Implanted:Qty: 1 on 05/20/2024 by Kimani Lopez MD at [facility] Left: Shoulder Ar[employer]rex Inc [id number] 09/19/2028 AR-9563-2 0 / / [id number] Ar[employer]rex Inc Screw Glenoid Locking Reverse Univers Revers 5.5x20mm Titanium Ar-9563-20 - [id number] Implanted:Qty: 1 on 05/20/2024 by Kimani Lopez MD at [facility] Left: Shoulder Ar[employer]rex Inc [id number] 09/19/2028 AR-9563-2 0 / / [id number] Arthrex Inc Univers Revers Shoulder 6 Stem Humeral Sterile Ar-9501-06s - [id number] Implanted:Qty: 1 on 05/20/2024 by Kimani Lopez MD at [facility] Left: Shoulder Ar[employer]rex Inc [id number] 09/19/2028 AR-9501-0 6S / / [id number] Procedures Procedure Name Priority Date/Time Associated Diagnosis [...] ORDERAB LES Final Result Performing Organization Address City/[facility] [[email or web address]] de Phone Number [facility] [address] [place] [address] * (ABNORMAL) Hemoglobin A1c (05/02/2024 2:54 PM CDT) [facility] Hgb A1C 7.0(H) 4.0 - 5.6 % Estimated Average Glucose 154 mg/dL [facility] Comment: The ADA recommends reporting an estimated Average Glucose (eAG) with all Hemoglobin A1c results using the equation derived from a study of 507 normal and diabetic adults. Minority populations were underrepresented and children were not included. (Diabetes Care 31:0316-7519, 2008). The eAG is not equivalent to a fasting glucose. Blood 05/02/2024 2:54 PM CDT 05/02/2024 2:54 PM CDT Seema Medrano CABLE ENGINEER LAB BLOOD ORDERAB LES Final Result Performing Organization Address [facility] de Phone Number [facility] [address] [place] [address] * Hepatitis C antibody Blood (08/18/2023 11:21 AM CDT) [facility] Hep C Ab Nonreactive Nonreactive Comment: [...] CDT 08/18/2023 4:02 PM CDT Carline Ramires CABLE ENGINEER LAB MICROBIOLOGY - GENERAL ORDER JEREMIAH Final Result Performing Organization Address [facility] Co de Phone Number [facility] [address] Department [place] [address] * Albumin Creatinine Ratio, Urine (08/18/2023 11:21 [...] LAB URINE ORDERABLES Final Resul t MERY [address] Department [place] [address] * DIABETES EYE EXAM (10/31/2022 9:39 AM CDT) Historical Provider HEALTH MAINTENANCE Final Result * COLONOSCOPY (06/30/2022 12:57 PM CDT) Historical Provider HEALTH MAINTENANCE Final Result from Last 3 Months or Most Recently Relevant to Health Maintenance Insurance T MEDICARE AETNA MEDICARE Advance Directives For more information, please contact: [phone] * Full Code (Latest Code Status on File) Date Activated Date Inactivated Comments 05/20/2024 2:44 PM 05/21/2024 5:20 PM Care Teams Bus System Operator Relationship Specialty Start Date End Date Jess Lima NP [address] [place] [address] PCP - General Family Medicine 04/10/24 Cammie Woodruff OD [address] [place] [address] Optometry 03/13/19 Osmany oFster MD [address] [place] [address] Referring Physician Gastroenterology 08/18/23 [facility] Endocrinology 08/18/23
--- OUTSIDE RECORDS SUMMARY | 2025-02-04 10:12 | XMS_ITS | Encounter Summary ---
Author Organization [facility] Healthcare Address [address] [place] [address] Care Team Providers Care Warp Doffer Name Role Phone Cammie Woodruff OD Unavailable Carline Ramires ROTARY DRIER OPERATOR Primary Care Provider [phone] Osmany Foster MD Unavailable [phone] Jess Lima ROTARY DRIER OPERATOR Primary Care Provider [phone] Encounter Details Date Type Department Care Team (Late st Contact Info) Description 02/10/2024 Orders Only [facility] Health Information Management [address] [place] [address] Scanning, Provider Social History Tobacco Use Types [...] on file Legal Sex Female 3:[address]NAGER Gender Identity Not on file Sexual [...] COVID: Suspected 04/02/2024 04/02/2024 04/02/2024 4:[address] MANAGER COVID: Suspected 04/02/2024 04/02/2024 04/02/2024 10:[address] MANAGER Influenza, adult 04/02/2024 04/02/2024 04/09/2024 3:[address] MANAGER documented as of this encounter Care Teams Warp Doffer Relationship Specialty Start Date End Date Carline Ramires NP [address] [facility] [address] [place] [address] PCP - General Family Medicine 08/18/23 04/09/24 Jess Lima NP [address] [place] [address] PCP - General Family Medicine 04/10/24 Cammie Woodruff OD [address] [place] [address] Optometry 03/13/19 Osmany Foster MD [address] [place], [place] [address] Referring Physician Gastroenterology 08/18/23 [facility] Endocrinology 08/18/23 documented as of this encounter
--- OUTSIDE RECORDS SUMMARY | 2025-02-04 14:12 | XMS_ITS | Clinical Summary ---
Author Organization [facility] Address [address] [place] [address] Care Team Providers Care Crowd Controller Name Role Phone Laura Grider MD Primary Care Provider [phone] Allergies Active Allergy Reactions Criticality Noted Date [...] 12/06/2019 Dexa Scan (General) 12/06/2019 COVID-19 Vaccine (2024-2 6 season) 2024 Influenza Adult (#1) 2024 RSV Immunization or 60+ Years (1 - 1-dose 75+ series) 2029 Hepatitis A Vaccines Aged Out No long er eligible based on patient's age to complete this topic Meningococcal B Vaccine Aged Out No l onger eligible based on patient's age to complete this topic Meningococcal Vaccine Aged Out No aamir anna eligible based on patient's age to complete this topic RSV Immunizations Under 20 Months Aged Out No longer eligible based on patient's age to complete this topic Medical Devices Implanted Type Area Checking Department Supervisor Device Identifier Shelf Expiration Date Model / Serial / Lot Knee Components Knee Components Knee Iol Toric Lens Sa6at5 - [id number] Implanted:Qty: 1 on 08/29/2018 by Marcus Lam MD at [facility] Lens MAGALY - SURGICAL DIV 08/19/2021 SA6AT5 / / Iol Toric Lens Sa6at3 - [id number] Implanted:Qty: 1 on 10/31/2018 by Marcus Lam MD at [facility] Lens MAGALY - SURGICAL DIV 08/19/2021 SA6AT3 / [id number] / Insurance AETNA MEDICARE Care Teams Crowd Controller Relationship Specialty Start Date End Date Laura Grider MD [address] [place] [address] [place] [address] PCP - General FAMILY PRACTICE 08/24/18
--- OUTSIDE RECORDS SUMMARY | 2025-02-04 14:12 | XMS_ITS | Encounter Summary ---
Author Organization [facility] Healthcare Address [address] [place] [address] Care Team Providers Care Communications Station Manager Name Role Phone Cammie Woodruff OD Unavailable Carline Ramires SUBSTATION DESIGN DRAFTSPERSON Primary Care Provider [phone] Osmany Foster MD Unavailable [phone] Jess Lima SUBSTATION DESIGN DRAFTSPERSON Primary Care Provider [phone] Encounter Details Date Type Department Care Team (Late st Contact Info) Description 02/10/2024 Orders Only [facility] Health Information Management [address] [place] [address] Scanning, Provider Social History Tobacco Use Types [...] on file Legal Sex Female 3:03 AM ORDER BUILDER 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 Gender Identity Not on file Sexual Orientation [...] COVID: Suspected 04/02/2024 04/02/2024 04/02/2024 4:01 PM ORDER BUILDER LOADER COVID: Suspected 04/02/2024 04/02/2024 04/02/2024 10:42 PM ORDER BUILDER LOADER Influenza, adult 04/02/2024 04/02/2024 04/09/2024 3:07 AM ORDER BUILDER LOADER documented as of this encounter Care Teams Communications Station Manager Relationship Specialty Start Date End Date Carline Ramires NP [address] [facility] [address] [place] [address] PCP - General Family Medicine 08/18/23 04/09/24 Jess Lima NP [address] [place] [address] PCP - General Family Medicine 04/10/24 Cammie Woodruff OD [address] [place] [address] Optometry 03/13/19 Osmany Foster MD [address] [place], [place] [address] Referring Physician Gastroenterology 08/18/23 [facility] Endocrinology 08/18/23 documented as of this encounter
--- OUTSIDE RECORDS SUMMARY | 2025-02-04 14:12 | XMS_ITS | Clinical Summary ---
Author Organization [facility] Address [address] [place] [address] Care Team Providers Care Fish Cake Maker Name Role Phone Kacy Cammiepj Figueroa OD Unavailable Osmany Foster MD Unavailable [phone] Jess Lima NP Primary Care Provider [...] months Active blood-glucose meter,continuou s (Dexcom G7 Microfilm Equipment Inspector) misc Activ e ALPRAZolam (XANAX) 1 mg [...] (12/13/2018): Added automatically from request for surgery [id number] Allergic rhinitis 08/22/2018 Attention deficit hyperactiv ity [...] Patient states she follows with Endo at [place], patient unable to recall the provider's name. [...] Immunization Administration Dates Next Due COVID-19 mRNA ([employer]) 0.3 m L (30 mcg) vaccine (12 years and up) 12/08/2022 Hep A / Hep B 05/31/2021 Influenza, Quadrivalent, Karina l Culture-based MDCK, Preservative Free, Antibiotic Free, Intramuscular 11/20/2018 Influenza, Quadrivalent, Hig h Dose, Preservative Free, Intrr 12/08/2022,11/23/2021,11/10/2020 Influenza, Quadrivalent, Spl it, Preservative Free, Intramuscular 11/13/2019,11/09/2017,12/20/2016 Influenza, Trivalent, IM (MDV) 12/20/2012,2012 Influenza, Trivalent, Preser vative Free, Intramuscular 12/17/2012 Influenza, Unspecified 11/21/2023,02/20/2023,02/2022 [facility] Sars-Cov-2 Bivalent V accination (12+ YRS) 11/23/2021 [...] file Legal Sex Female 3:03 AM ORDER TAKERS SUPERVISOR Gender Identity Not on file Sexual [...] Completed 08/18/2023 Medical Devices Implanted Type Area Doll Dresser Device Identifier Shelf Expiration Date Model / Serial / Lot Arthrex Inc Implant Pin Kit Glenoid Ar-9607s - [id number] Implanted:Qty: 1 on 05/20/2024 by Kimani Lopez MD at [facility] Left: Shoulder Ar[employer]rex Inc 02/20/2028 AR-9607S / / [id number] Arthrex Inc Arthrex Univers Revers 36mm Suture Cup Humeral Sterile Latex Free Rp-5021c-23shc - [id number] Implanted:Qty: 1 on 05/20/2024 by Kimani Lopez MD at [facility] Left: Shoulder Ar[employer]rex Inc [id number] 01/19/2029 ALEXIS-9502F- 36CPC .72403 Ar[employer]rex [employer] Univers Revers 36mm Shoulder +3mm Small Insert Humeral Sterile Ar-9503s-03 - [id number] Implanted:Qty: 1 on 05/20/2024 by Kimani Lopez MD at [facility] Left: Shoulder Ar[employer]rex Inc [id number] 08/19/2028 AR-9503S- .91747 Arthrex Inc Baseplate 24mm 10 Deg Full Augment 2 Lateralized Ac-8618-8951-2s - [id number] Implanted:Qty: 1 on 05/20/2024 by Kimani Lopez MD at [facility] Left: Shoulder Ar[employer]rex Inc [id number] 01/19/2029 AR-9580-2 410-2S / / [id number] [employer] Univers Revers 25mm Modular Post Component Glenoid Porous Ar-9582-25 - [id number] Implanted:Qty: 1 on 05/20/2024 by Kimani Lopez MD at [facility] Left: Shoulder Ar[employer]rex Inc [id number] 08/19/2028 AR-9582-2 5 / / [id number] Ar[employer]rex Inc 36mm 24 Baseplate Taper Sphere Glenoid Fw-5812-5153 - [id number] Implanted:Qty: 1 on 05/20/2024 by Kimani Lopez MD at [facility] Left: Shoulder Ar[employer]rex Inc [id number] 11/19/2028 AR-9564-2 436 / / [id number] Arthrex Inc 4.5mm 32mm Peripheral Screw Bone Sterile Ux-4041-99ab - [id number] Implanted:Qty: 1 on 05/20/2024 by Kimani Lopez MD at [facility] Left: Shoulder Ar[employer]rex Inc [id number] 04/19/2028 AR-9562-3 2NL / / [id number] Arthrex Inc 4.5mm 32mm Peripheral Screw Bone Sterile Cv-7977-84tk - [id number] Implanted:Qty: 1 on 05/20/2024 by Kimani Lopez MD at [facility] Left: Shoulder Ar[employer]rex Inc [id number] 10/20/2028 AR-9562-3 2NL / / [id number] Ar[employer]rex Inc Screw Glenoid Locking Reverse Univers Revers 5.5x20mm Titanium Ar-9563-20 - [id number] Implanted:Qty: 1 on 05/20/2024 by Kimani Lopez MD at [facility] Left: Shoulder Ar[employer]rex Inc [id number] 09/19/2028 AR-9563-2 0 / / [id number] Ar[employer]rex Inc Screw Glenoid Locking Reverse Univers Revers 5.5x20mm Titanium Ar-9563-20 - [id number] Implanted:Qty: 1 on 05/20/2024 by Kimani Lopez MD at [facility] Left: Shoulder Ar[employer]rex Inc [id number] 09/19/2028 AR-9563-2 0 / / [id number] Arthrex Inc Univers Revers Shoulder 6 Stem Humeral Sterile Ar-9501-06s - [id number] Implanted:Qty: 1 on 05/20/2024 by Kimani Lopez MD at [facility] Left: Shoulder Ar[employer]rex Inc [id number] 09/19/2028 AR-9501-0 6S / / [id number] Procedures Procedure Name Priority Date/Time Associated Diagnosis [...] ORDERAB LES Final Result Performing Organization Address City/[facility] de Phone Number [facility] [address] Department [place] [address] * (ABNORMAL) Hemoglobin A1c (05/02/2024 2:54 PM CDT) [facility] Hgb A1C 7.0(H) 4.0 - 5.6 % Estimated Average Glucose 154 mg/dL [facility] Comment: The ADA recommends reporting an estimated Average Glucose (eAG) with all Hemoglobin A1c results using the equation derived from a study of 507 normal and diabetic adults. Minority populations were underrepresented and children were not included. (Diabetes Care 31:1336-7752, 2008). The eAG is not equivalent to a fasting glucose. Blood 05/02/2024 2:54 PM CDT 05/02/2024 2:54 PM CDT Seema Medrano SHIP BOAT OR BARGE MATE LAB BLOOD ORDERAB LES Final Result Performing Organization Address [facility] de Phone Number [facility] [address] [place] [address] * Hepatitis C antibody Blood (08/18/2023 11:21 AM CDT) [facility] Hep C Ab Nonreactive Nonreactive Comment: [...] CDT 08/18/2023 4:02 PM CDT Carline Ramires SHIP BOAT OR BARGE MATE LAB MICROBIOLOGY - GENERAL ORDER JEREMIAH Final Result Performing Organization Address [facility] Co de Phone Number [facility] [address] [place] [address] * Albumin Creatinine Ratio, Urine (08/18/2023 11:21 [...] LAB URINE ORDERABLES Final Resul t MERY [address] [place] [address] * DIABETES EYE EXAM (10/31/2022 9:39 AM CDT) Historical Provider HEALTH MAINTENANCE Final Result * COLONOSCOPY (06/30/2022 12:57 PM CDT) Historical Provider HEALTH MAINTENANCE Final Result from Last 3 Months or Most Recently Relevant to Health Maintenance Insurance T MEDICARE AETNA MEDICARE Advance Directives For more information, please contact: [phone] * Full Code (Latest Code Status on File) Date Activated Date Inactivated Comments 05/20/2024 2:44 PM 05/21/2024 5:20 PM Care Teams Fish Cake Maker Relationship Specialty Start Date End Date Jess Lima NP [address] [place] [address] PCP - General Family Medicine 04/10/24 Cammie Woodruff OD [address] [place] [address] Optometry 03/13/19 Osmany Foster MD [address] [place] [address] Referring Physician Gastroenterology 08/18/23 [facility] Endocrinology 08/18/23
[2025-02-06 23:07] LABS: Calprotectin, Fecal 1440 ug/g (0-120)
== END 2025-02-04 12:03 | disposition home or self-care (01) ==
PROVIDERS: PCP Nurse Practitioner Family; Visit Provider Nurse Practitioner
DX: K51.20 Ulcerative (chronic) proctitis without complications (principal); R19.7 Diarrhea, unspecified; F31.9 Bipolar disorder, unspecified
CPT/HCPCS: 83993; 87045; 87046; 87177; 87427

== ENCOUNTER 2025-02-08 12:54 | Emergency (ER) | payer MEDICARE, SELFPAY ==
--- NOTE | ~2025-02-08 | XR_ITS ---
Examination: XR hip RT 2V w AP pelvis Clinical History: needle FB in hip after injection Comparison: CT abdomen pelvis 01/14/2025 Technique: 2 views right hip with AP pelvis Findings/impression: 1. No radiopaque foreign body. 2. No fracture or dislocation right hip. 3. No pelvic fracture. Reviewed, dictated and finalized at location R. RITY TEST ENGINEER
[2025-02-08 13:00] VITALS: BP 140/75; PULSE 87; RESP 20; TEMP 36.8; O2SAT 96
--- NOTE | 2025-02-08 14:23 | ED.SKABFB ---
HPI - Skin/Abscess/Foreign Bdy General Chief complaint: Skin/Abscess/Foreign Body Stated complaint: FB in buttock Time Seen by Provider: 02/08/25 14:06 Source: patient Mode of arrival: ambulatory Limitations: no limitations History of Present Illness HPI narrative: This is a 69-year-old female that presents to the emergency department after giving herself her 1st B12 injection. She was concerned that maybe part of the needle broke off and was stuck in her skin as they could not find the needle after they did the injection. Related Data Home Medications ?Medication ?Instructions ?Recorded ?Confirmed ?Last Taken ?Type atorvastatin 40 mg tablet (Lipitor) 40 mg PO QPM 12/04/19 01/30/25 02/29/24 History metoprolol succinate 50 mg 50 mg PO HS 12/04/19 01/30/25 02/29/24 History tablet,extended release 24 hr aripiprazole 30 mg tablet (Abilify) 30 mg PO HS 06/02/23 01/30/25 02/29/24 History desvenlafaxine succinate 100 mg 100 mg PO DAILY 06/02/23 01/30/25 02/29/24 History tablet,extended release 24 hr (Pristiq) dextroamphetamine-amphetamine 20 20 mg PO DAILY 02/09/24 01/30/25 02/29/24 History mg tablet alprazolam 2 mg tablet mg 08/11/24 01/30/25 Unknown History cyanocobalamin (vitamin B-12) mcg 08/11/24 01/30/25 Unknown History 1,000 mcg/mL injection solution ferrous sulfate 325 mg (65 mg mg 08/11/24 01/30/25 Unknown History iron) tablet (FeroSul) albuterol sulfate 90 mcg/actuation inhalation 12/13/24 01/30/25 Unknown History aerosol inhaler Allergies Allergy/AdvReac Type Severity Reaction Status Date / Time codeine Allergy Intermediate Itching Verified 02/08/25 13:01 sulfamethoxazole (From Allergy Joint Pain Verified 02/08/25 13:01 Bactrim) triamcinolone Allergy Joint Pain Verified 02/08/25 13:01 trimethoprim (From Bactrim) Allergy Joint Pain Verified 02/08/25 13:01 Review of Systems Review of Systems: All systems reviewed & are unremarkable except as noted in HPI and below PMFSH Past Medical History Medical History Hepatic steatosis Post-menopausal Vitamin D deficiency Type 2 diabetes mellitus Bipolar disorder Long-term use of immunosuppressant medication Obesity Mucus in stool Fecal urgency High risk medication use Obstructive sleep apnea Esophageal stricture Ulcerative proctitis Hepatomegaly Fecal incontinence Hypertension Tongue, fissured Hyperlipidemia Psychiatric care Nasal septal perforation Anxiety Depression Arthritis History of emphysema COPD (chronic obstructive pulmonary disease) Surgical History Surgical History History of bilateral knee replacement History of section History of hysterectomy History of tonsillectomy Family History Family History Other Renal cell cancer Social History Social History Smoking packs per day: 1.5 Smoking cigarettes per day: 30.0 Years smoked: 45 Smoking pack-years: 67.50 Smoking status: Former smoker Tobacco type: e-cigarettes/vaping Second hand tobacco smoke exposure: Yes Smoking end date: 02/20/09 Additional smoking assessment comments: Still vapes, no nicotine Alcohol intake: never Substance use: never Substance use type: does not use Lack of Transportation: No Lack of Food: Never True Current Housing: I Have Housing Concerned About Future Housing: No Difficulty Paying Gas/Electric Bills: No Difficulty Paying for Meds: No Currently Unemployed: No Education: Associate Degree Difficulty w/ Childcare or Family Care: No Living arrangements: with family Additional living arrangements comments: AND GRANDDAUGHTER Gender identity (if verbalized by the patient): Female Spiritual care concerns: No Exam Narrative: GENERAL: Well-appearing, well-nourished, and in no acute distress. HEAD: Normocephalic, atraumatic. EYES: EOMI. EXTREMITIES: Normal range of motion. No edema. SKIN: Warm, dry, no rash. No foreign body seen or palpated NEURO: No focal deficits. Alert and oriented x3. PSYCH: Normal mood and affect Course Vital Signs Vital signs: Vital Signs Temperature 98.2 F 02/08/25 13:00 Pulse Rate 87 02/08/25 13:00 Respiratory Rate 20 02/08/25 13:00 Blood Pressure 140/75 02/08/25 13:00 Pulse Oximetry 96 02/08/25 13:00 Temperature 98.2 F 02/08/25 13:00 Pulse Rate 87 02/08/25 13:00 Respiratory Rate 20 02/08/25 13:00 Blood Pressure 140/75 02/08/25 13:00 Pulse Oximetry 96 02/08/25 13:00 MDM MDM Narrative Medical decision making narrative: It appears patient had used a retractable needle which she was unaware of. No foreign bodies are seen on exam or x-ray Differential Diagnosis Differential Diagnosis: foreign body, injection education Critical Care Time Critical Care Time Critical Care Time: No Discharge Plan Discharge Clinical Impression: Injection education, encounter for Patient Disposition: Home Condition: Stable Additional Instructions: No signs of foreign body on your x-ray. It appears the needle automatically retracts after injection given Patient Language: Moroccan Prescriptions: No Action cyanocobalamin (vitamin B-12) 1,000 mcg/mL solution ferrous sulfate [FeroSul] 325 mg (65 mg iron) tablet alprazolam 2 mg tablet albuterol sulfate 90 mcg/actuation HFA aerosol inhaler INHALATION Skyrizi 180 mg/1.2 mL (150 mg/mL) wearable injector 180 mg subcut .every 8 weeks Qty: 1.2 11RF semaglutide 2 mg/dose (8 mg/3 mL) pen injector 2 mg subcut WEEKLY Qty: 9 2RF Rx Instructions: Pt takes on Saturdays dapagliflozin propanediol 5 mg tablet 5 mg PO DAILY Qty: 90 2RF (DME) Dexcom G7 Sensor Device See Rx Instructions .Route Qty: 9 3RF Rx Instructions: As directed atorvastatin [Lipitor] 40 mg tablet 40 mg PO QPM metoprolol succinate 50 mg tablet extended release 24 hr 50 mg PO HS aripiprazole [Abilify] 30 mg Tablet 30 mg PO HS desvenlafaxine succinate [Pristiq] 100 mg Tablet Extended Release 24 Hr 100 mg PO DAILY Rx Instructions: Bottle unopened dextroamphetamine-amphetamine 20 mg tablet 20 mg PO DAILY aspirin 81 mg capsule 81 mg PO DAILY Qty: 30 0RF Follow-up/Referrals: Clarence,Jess Ahuja NP [Non-Staff, Unknown]
--- OUTSIDE RECORDS SUMMARY | 2025-02-08 14:27 | XMS_ITS | Encounter Summary ---
Author Organization [facility] Healthcare Address [address] [place] [address] Care Team Providers Care Tie Tape Machine Operator Name Role Phone Cammie Woodruff OD Unavailable Carline Ramires INCINERATOR OPERATOR Primary Care Provider [phone] Osmany Foster MD Unavailable [phone] Jess Lima INCINERATOR OPERATOR Primary Care Provider Encounter Details Date Type Department Care Team (Late st Contact Info) Description 02/10/2024 Orders Only [facility] Health Information Management [address] [place] [id number] Scanning, Provider Social History Tobacco Use Types [...] on file Legal Sex Female 3:03 AM VP HUMAN RESOURCES Gender Identity Not on file Sexual Orientation [...] COVID: Suspected 04/02/2024 04/02/2024 04/02/2024 4:01 PM VP [employer] COVID: Suspected 04/02/2024 04/02/2024 04/02/2024 10:42 PM VP [employer] Influenza, adult 04/02/2024 04/02/2024 04/09/2024 3:07 AM VP [employer] documented as of this encounter Care Teams Tie Tape Machine Operator Relationship Specialty Start Date End Date Carline Ramires NP [address] [place] [address] PCP - General Family Medicine 08/18/23 04/09/24 Jess Lima NP [address] [place] [address] PCP - General Family Medicine 04/10/24 Cammie Woodruff OD [address] [place] [address] Optometry 03/13/19 Osmany Foster MD [address] [place], [place] [id number] Referring Physician Gastroenterology 08/18/23 [facility] Endocrinology 08/18/23 documented as of this encounter
--- OUTSIDE RECORDS SUMMARY | 2025-02-08 14:27 | XMS_ITS | Clinical Summary ---
Author Organization [facility] Address [address] [place] [address] Care Team Providers Care Foot Miter Operator Name Role Phone Kacy Cammiepj Figueroa OD Unavailable Osmany Foster MD Unavailable [phone] Jess Lima NP Primary Care Provider [phone] Allergies Active Allergy Reactions Criticality Noted Date [...] months Active blood-glucose meter,continuou s (Dexcom G7 Cabin Worker) misc Activ e ALPRAZolam (XANAX) 1 mg [...] (12/13/2018): Added automatically from request for surgery [id number] Allergic rhinitis 08/22/2018 Attention deficit hyperactiv ity [...] Patient states she follows with Endo at [place], patient unable to recall the provider's name. [...] Immunization Administration Dates Next Due COVID-19 mRNA ([email or web address]) 0.3 m L (30 mcg) vaccine (12 years and up) 12/08/2022 Hep A / Hep B 05/31/2021 Influenza, Quadrivalent, Karina l Culture-based MDCK, Preservative Free, Antibiotic Free, Intramuscular 11/20/2018 Influenza, Quadrivalent, Hig h Dose, Preservative Free, Intrr 12/08/2022,11/23/2021,11/10/2020 Influenza, Quadrivalent, Spl it, Preservative Free, Intramuscular 11/13/2019,11/09/2017,12/20/2016 Influenza, Trivalent, IM (MDV) 12/20/2012,2012 Influenza, Trivalent, Preser vative Free, Intramuscular 12/17/2012 Influenza, Unspecified 11/21/2023,02/20/2023,02/2022 People to Remember Sars-Cov-2 Bivalent V accination (12+ YRS) 11/23/2021 [...] file Legal Sex Female 3:03 AM RN ENTEROSTOMAL Gender Identity Not on file Sexual Orientation [...] Completed 08/18/2023 Medical Devices Implanted Type Area Farmworker Rice Device Identifier Shelf Expiration Date Model / Serial / Lot [employer] Implant Pin Kit Glenoid Ar-9607s - [id number] Implanted:Qty: 1 on 05/20/2024 by Kimani Lopez MD at [facility] Left: Shoulder [employer] 02/20/2028 AR-9607S / / [id number] [employer] Arthrex Univers Revers 36mm Suture Cup Humeral Sterile Latex Free Ne-0684n-[id number] - [id number] Implanted:Qty: 1 on 05/20/2024 by Kimani Lopez MD at [facility] Left: Shoulder [employer] [id number] 01/19/2029 ALEXIS-9502F- 36CPC .[id number] [employer] Univers Revers 36mm Shoulder +3mm Small Insert Humeral Sterile Ar-9503s-03 - [id number] Implanted:Qty: 1 on 05/20/2024 by Kimani Lopez MD at [facility] Left: Shoulder [employer] [id number] 08/19/2028 AR-9503S- .[id number] [employer] Baseplate 24mm 10 Deg Full Augment 2 Lateralized Mc-0566-5779-2s - [id number] Implanted:Qty: 1 on 05/20/2024 by Kimani Lopez MD at [facility] Left: Shoulder [employer] [id number] 01/19/2029 AR-9580-2 410-2S / / [id number] [employer] Univers Revers 25mm Modular Post Component Glenoid Porous Ar-9582-25 - [id number] Implanted:Qty: 1 on 05/20/2024 by Kimani Lopez MD at [facility] Left: Shoulder [employer] [id number] 08/19/2028 AR-9582-2 5 / / [id number] [employer] 36mm 24 Baseplate Taper Sphere Glenoid Kq-[id number] - [id number] Implanted:Qty: 1 on 05/20/2024 by Kimani Lopez MD at [facility] Left: Shoulder [employer] [id number] 11/19/2028 AR-9564-2 436 / / [id number] [employer] 4.5mm 32mm Peripheral Screw Bone Sterile Qp-0461-67ri - [id number] Implanted:Qty: 1 on 05/20/2024 by Kimani Lopez MD at [facility] Left: Shoulder [employer] [id number] 04/19/2028 AR-9562-3 2NL / / [id number] [employer] 4.5mm 32mm Peripheral Screw Bone Sterile Mk-[id number] - [id number] Implanted:Qty: 1 on 05/20/2024 by Kimani Lopez MD at [facility] Left: Shoulder [employer] [id number] 10/20/2028 AR-9562-3 2NL / / [id number] [employer] Screw Glenoid Locking Reverse Univers Revers 5.5x20mm Titanium Ar-9563-20 - [id number] Implanted:Qty: 1 on 05/20/2024 by Kimani Lopez MD at [facility] Left: Shoulder [employer] [id number] 09/19/2028 AR-9563-2 0 / / [id number] [employer] Screw Glenoid Locking Reverse Univers Revers 5.5x20mm Titanium Ar-9563-20 - [id number] Implanted:Qty: 1 on 05/20/2024 by Kimani Lopez MD at [facility] Left: Shoulder [employer] [id number] 09/19/2028 AR-9563-2 0 / / [id number] [employer] Univers Revers Shoulder 6 Stem Humeral Sterile Ar-9501-06s - [id number] Implanted:Qty: 1 on 05/20/2024 by Kimani Lopez MD at [facility] Left: Shoulder [employer] [id number] 09/19/2028 AR-9501-0 6S / / [id number] Procedures Procedure Name Priority Date/Time Associated Diagnosis [...] PM CDT 05/02/2024 2:54 PM CDT Seema Medraon NP LAB BLOOD ORDERAB LES Final Result Performing Organization Address City/[facility] de Phone Number [facility] [address] [place] [address] * (ABNORMAL) Hemoglobin A1c (05/02/2024 2:54 PM CDT) [facility] Hgb A1C 7.0(H) 4.0 - 5.6 % Estimated Average Glucose 154 mg/dL [facility] Comment: The ADA recommends reporting an estimated Average Glucose (eAG) with all Hemoglobin A1c results using the equation derived from a study of 507 normal and diabetic adults. Minority populations were underrepresented and children were not included. (Diabetes Care 31:3918-8501, 2008). The eAG is not equivalent to a fasting glucose. Blood 05/02/2024 2:54 PM CDT 05/02/2024 2:54 PM CDT Seema Medrano OUTDOOR EDUCATION TEACHER LAB BLOOD ORDERAB LES Final Result Performing Organization Address [facility] de Phone Number [facility] [address] [place] [address] * Hepatitis C antibody Blood (08/18/2023 11:21 AM CDT) [facility] Hep C Ab Nonreactive Nonreactive Comment: Interpretive [...] CDT 08/18/2023 4:02 PM CDT Carline Ramires OUTDOOR EDUCATION TEACHER LAB MICROBIOLOGY - GENERAL ORDER JEREMIAH Final Result Performing Organization Address [facility] Co de Phone Number [facility] [address] Department [place] [address] * Albumin Creatinine Ratio, Urine (08/18/2023 11:21 [...] LAB URINE ORDERABLES Final Resul t M[facility] [address] Department [place] [address] * DIABETES EYE EXAM (10/31/2022 9:39 AM CDT) Historical Provider HEALTH MAINTENANCE Final Result * COLONOSCOPY (06/30/2022 12:57 PM CDT) Historical Provider HEALTH MAINTENANCE Final Result from Last 3 Months or Most Recently Relevant to Health Maintenance Insurance T MEDICARE AETNA MEDICARE Advance Directives For more information, please contact: [phone] * Full Code (Latest Code Status on File) Date Activated Date Inactivated Comments 05/20/2024 2:44 PM 05/21/2024 5:20 PM Care Teams Foot Miter Operator Relationship Specialty Start Date End Date Jess Lima NP [address] [place] [address] PCP - General Family Medicine 04/10/24 Cammie Woodruff OD [address] [place] [address] Optometry 03/13/19 Osmany Foster MD [address] [place] [address] Referring Physician Gastroenterology 08/18/23 [facility] Endocrinology 08/18/23
== END 2025-02-08 14:33 | disposition home or self-care (01) ==
PROVIDERS: Emergency Provider Physician Assistant
DX: Z03.823 Encounter for observation for suspected inserted (injected) foreign body ruled out (principal); I10 Essential (primary) hypertension; E11.9 Type 2 diabetes mellitus without complications; E55.9 Vitamin D deficiency, unspecified; E78.5 Hyperlipidemia, unspecified; J43.9 Emphysema, unspecified; G47.33 Obstructive sleep apnea (adult) (pediatric); F41.9 Anxiety disorder, unspecified; F31.9 Bipolar disorder, unspecified; F17.290 Nicotine dependence, other tobacco product, uncomplicated; Z96.653 Presence of artificial knee joint, bilateral; Z90.710 Acquired absence of both cervix and uterus; Z79.85 Long-term (current) use of injectable non-insulin antidiabetic drugs; Z79.899 Other long term (current) drug therapy; Z79.82 Long term (current) use of aspirin; Z79.620 Long term (current) use of immunosuppressive biologic
CPT/HCPCS: 73502; 99283